=== PATIENT | male | born 1955 | race Hispanic/Latino ===

== ENCOUNTER 2024-06-16 20:36 | Inpatient (IN) | payer MEDICARE ==
[~2024-06-16] VITALS: Ht 172.7 cm; Wt 85.8 kg
--- NOTE | 2024-06-16 20:45 | ERN ---
ED Note History of Present Illness Stated Complaint: GENERALIZED BODY WEAKNESS, LOW PLATELETS Chief Complaint: Abnormal Labs Time Seen by MD: 20:38 Dictation: [facility]. Patient recently was being treated for osteo. A few months ago. He had left lateral digit amputations. These metatarsal and did and phalanges. Patient denies any fevers chills any difficulty. Did review previous platelets. The around 200. But they said they have been downtrending here recently it was last days now the around 30. He denies any bleeding either or dark stools or vomiting blood Allergies: Coded Allergies: No Known Drug Allergies (Unverified Allergy, Unknown, 05/05/24) Home Meds No Active Prescriptions or Reported Meds Past Medical History Past Medical History: CHF, Diabetes-Type II, High Cholesterol, Hypertension Surgical History: Other Surgical History Other: BILATERAL TOES AMPUTATED Review of System Dictation Constitutional: Negative for fever,chills, and weight loss Eyes: Negative for injury, pain,redness, and discharge ENT: Negative for injury,pain or swelling Cardiovascular: Negative for chest pain, palpitations, and edema Respiratory: Negative for shortness of breath, cough, and wheezing, Abdomen/GI: Negative for abdominal pain, nausea, vomiting, diarrhea, and constipation Back: Negative for injury and pain : Negative for injury, bleeding and discharge MS/Extremity: Negative for injury and deformity Skin: Negative for rash, and discoloration Neuro: Negative for headache, weakness, numbness, tingling, and seizure Psych: Negative for suicide ideation, homicidal ideation, and hallucinations Initial Vital Sign VS Vital Signs Date Time Temp Pulse Resp B/P (MAP) Pulse Ox O2 Delivery O2 Flow Rate FiO2 06/16/24 20:37 97.0 98 16 102/51 100 Room Air 0 06/16/24 21:00 21 Physical Exam Dictation General: awake, alert, NAD Head/Face: Normocephalic, atraumatic Eyes: PERRL, EOMI, vision at baseline ENT: oral cavity clear, TMs clear, no signs of infection Neck: Trachea midline, supple, no nuchal rigidity Cardiovascular: RRR, normal S1/S2, No MRGs, no JVD Respiratory: CTAB, no respiratory distress, No rales or wheezes Abdomen: Soft, non-tender, non-distended, normal bowel sounds, no guarding or rebound. Skin: Warm, dry, normal turgor, no rash MS/Extremity: Patient does have some bandages. The left lower lateral foot.. But there was no purulence that is there was no oozing. Patient denies any other issues. He was speaking full complete sentences he denies any symptoms anywhere Neuro: COAx4, GCS 15, strength 5/5, CN 2-12 intact, normal cerebellar exam, normal gait, Psych: Normal behavior, mood, and affect normal Results (Laboratory/Radiology) Laboratory/Radiology Laboratory Tests Test 06/16/24 20:31 06/16/24 22:12 White Blood Count 10.4 K/uL (4.8-10.8) Red Blood Count 3.20 MIL/uL (4.50-6.20) L Hemoglobin 9.7 g/dL (14.0-18.0) L Hematocrit 30.2 % (42-54) L Mean Corpuscular Volume 94.4 fL (79-99) Mean Corpuscular Hemoglobin 30.3 pg (27.0-33.0) Mean Corpuscular Hemoglobin Concent 32.1 g/dL (32.0-36.0) Red Cell Distribution Width 14.9 % (11.0-15.5) Platelet Count 32 K/uL (130-400) L Mean Platelet Volume 12.9 fL (7.5-10.5) H Immature Granulocyte % (Auto) 2.0 % (0-1) H Neutrophils (%) (Auto) 84.2 % (40.0-77.0) H Lymphocytes (%) (Auto) 9.1 % (21.0-51.0) L Monocytes (%) (Auto) 4.2 % (3.0-13.0) Eosinophils (%) (Auto) 0.1 % (0.0-8.0) Basophils (%) (Auto) 0.4 % (0.0-5.0) Neutrophils # (Auto) 8.7 K/uL (1.8-7.7) H Lymphocytes # (Auto) 0.9 K/uL (1.0-4.8) L Monocytes # (Auto) 0.4 K/uL (0.1-1.0) Eosinophils # (Auto) 0.01 K/uL (0.00-0.70) Basophils # (Auto) 0.04 K/uL (0.00-0.20) Absolute Immature Granulocyte (auto 0.21 K/uL (0-1) Nucleated Red Blood Cells 0.0 % (0.0-0.19) White Cell Morphology Comment See comments Platelet Morphology Comment MARKED DECREASE Red Blood Cell Morphology See comments Erythrocyte Sedimentation Rate 41 MM/HR (0-20) H Sodium Level 137 mmol/L (136-145) Potassium Level 6.0 mmol/L (3.5-5.1) *H Chloride Level 101 mmol/L (101-111) Carbon Dioxide Level 8 mmol/L (21-32) *L Blood Urea Nitrogen 113 mg/dL (7-18) *H Creatinine 9.9 mg/dL (0.5-1.3) *H Glomerular Filtration Rate Calc 5 mL/min (>90) Random Glucose 101 mg/dL (70-105) Total Calcium 8.6 mg/dL (8.5-10.1) Troponin I High Sensitivity 139 ng/L (4-75) *H C-Reactive Protein, Quantitative 16.10 mg/L (0.5-3.0) H B-Type Natriuretic Peptide 662 pg/mL (0-100) H Group A Streptococcus Rapid negative (NEGATIVE) ED Course ED Course Orders Procedure Category Date Status Time Cbc With Differential LAB 06/16/24 Complete 20:41 Chest 1vw RAD 06/16/24 Resulted 20:41 12 Lead Ekg Tracing- EKG 06/16/24 Logged Technical 20:41 Troponin I High LAB 06/16/24 Complete Sensitivity 20:41 Basic Metabolic Panel LAB 06/16/24 Complete 20:41 Erythrocyte LAB 06/16/24 Complete Sedimentation Rate 20:41 Crp Quantitative LAB 06/16/24 Complete 20:41 Blood Cult JAROCHO 06/16/24 In Process 21:16 0.9%Nacl 1000ml (Ns PHA 06/16/24 Complete 1000ml) 21:30 Zosyn 3.375gm+Ns 50ml PHA 06/16/24 In Process (Zosyn 3.375gm+Ns 21:30 Vancomycin 1.5 Gm/250 PHA 06/16/24 Complete Ml Bag (Vancomycin 21:30 Enoxaparin Sodium 100 PHA 06/16/24 Complete Mg/1 Ml (Lovenox) 21:30 Calcium Gluc 1gm PHA 06/16/24 Complete (Calcium Gluc 1gm 21:30 Albuterol 0.083% PHA 06/16/24 Complete 2.5mg/3ml (Proventil 21:30 Sodium Polystyr Sulf PHA 06/16/24 In Process 15gm (Kayexalate 15 21:30 B-Type Natriuretic LAB 06/16/24 Complete Peptide 21:28 Albuterol 0.083% PHA 06/16/24 Complete 2.5mg/3ml (Proventil 21:34 Norepinephrin 4mg/Ns PHA 06/16/24 In Process 250ml (Levophed 4mg 22:00 Vancomycin 1g/250ml PHA 06/16/24 In Process Kit (Vancomycin 1g/2 22:00 Covid19 (Sars Antigen LAB 06/16/24 In Process Rapid) 22:17 Influenza Type A & B, LAB 06/16/24 In Process Rapid 22:17 Rapid (Group A Strep) LAB 06/16/24 In Process 22:17 Current Medications Medications (Trade) Dose Ordered Sig/Roderick Route PRN Reason Start Time Stop Time Status Last Admin Dose Admin Albuterol Sulfate (Proventil 0.083% 2.5mg/3ml) 2.5 mg STK-MED ONCE IH 06/16/24 21:34 06/16/24 21:34 DC Albuterol Sulfate (Proventil 0.083% 2.5mg/3ml) 10 mg ONCE ONCE IH 06/16/24 21:30 06/16/24 21:35 DC 06/16/24 21:53 Calcium Gluconate 1 gm/Sodium Chloride 110 ml @ 110 mls/hr ONCE ONCE IV 06/16/24 21:30 06/16/24 22:29 DC 06/16/24 22:03 Enoxaparin Sodium (Lovenox) 80 mg ONCE ONCE SQ 06/16/24 21:30 06/16/24 21:46 DC Norepinephrine 250 ml @ 0 mls/hr PROTOCOL IV 06/16/24 22:00 07/16/24 21:59 06/16/24 22:03 Piperacillin Sod/ Tazobactam Sod (Zosyn 3.375gm+NS 50ml) 3.375 gm Q12H IV 06/16/24 21:30 07/07/24 21:29 06/16/24 21:42 Sodium Polystyrene Sulfonate (kayEXALate 15 GM/60 ML) 15 gm Q2H PO 06/16/24 21:30 06/16/24 23:31 06/16/24 22:21 Sodium Chloride 1,000 ml @ 0 mls/hr ONCE ONCE IV 06/16/24 21:30 06/16/24 21:31 DC 06/16/24 21:22 Vancomycin HCl 250 ml @ 125 mls/hr ONCE ONCE IV 06/16/24 22:00 06/16/24 23:59 06/16/24 22:21 Vancomycin HCl (Vancomycin 1.5 Gm/250 ml Bag) 1 gm ONCE ONCE IV 06/16/24 21:30 06/16/24 21:34 DC Vital Signs Date Time Temp Pulse Resp B/P (MAP) Pulse Ox O2 Delivery O2 Flow Rate FiO2 06/16/24 22:25 118 20 123/45 96 Room Air* 0 06/16/24 22:20 118 20 138/49 96 Room Air* 0 06/16/24 22:15 111 16 125/50 96 Room Air* 0 06/16/24 22:10 96 14 92/34 96 Room Air* 0 06/16/24 22:05 96 15 94/37 96 Room Air* 0 06/16/24 22:03 103/33 06/16/24 22:00 96 15 103/32 96 Room Air* 0 06/16/24 21:55 95 14 86/32 96 Room Air* 0 06/16/24 21:54 97 15 06/16/24 21:45 95 16 96/35 96 Room Air* 0 06/16/24 21:35 92 19 97/35 96 Room Air* 0 06/16/24 21:30 97 19 96/41 96 Room Air* 0 06/16/24 21:15 95 18 79/22 95 Room Air* 0 06/16/24 21:05 96.6 96 16 102/36 98 Room Air* 0 06/16/24 21:00 96 15 96/30 98 Room Air* 0 06/16/24 20:37 97.0 98 16 102/51 100 Room Air 0 Medical Decision Making MDM Patient has no acute distress nontoxic appearing he is speak in full complete sentences I am not aware of if he was able to receive the full dose treatment for the osteomyelitis. But given these low platelets. I do believe he would benefit from observation. And a trial of different antibiotics. I gave him for his osteomyelitis in his chronic wound. Given the platelets there are month ago. Around 200 and and now there 30 I told the patient I do anticipate admission Nurse told me about the low pressure. Nine hundred fifteen 9:20 p.m.. She said he may have had a heart failure than the in the past. I did see bedside x-ray read. There was no pleural effusions. No large pleural effusions. No pretibial edema I said we will do 1 L if this is not work within these next short time. Then we will start Levophed. They said that he had been getting the cefepime. Over the last days. I did consider doing broad-spectrum antibiotics. But again this this could worsen the the platelet level. Given the acidosis. And demand ischemia troponinemia. Decision was made to do broad-spectrum antibiotics. Also additionally to given his severe NETO. Given these not been eating and drinking it was last four days. I had started some fluids and pressors. Also told placement secretary to Colin. Two page nephrology. Patient likely is a candidate for dialysis. It was around 10:00 p.m. MDM: Differential diagnosis: Rationale: Tests considered and ordered secondary to shared decision making include: labs, ECG and radiology Previous outside records reviewed: Old ER visits. Risk of complication and/or morbidity or mortality of patient management: None Medications-Per medication reconciliation Need for hospitalization: Patient does meet criteria for hospitalization. Need for emergency major/minor surgery: No There are no social concerns with this patient. Prescription drug management Prescriptions will include symptomatic care Patient's prior external medical records from other ER visits were reviewed by me as indicated. Prior testing and results from previous visits were reviewed. Prior tests were taken into account with medical decision making and resource utilization, independent historian/historians were used to obtain complete medical history. I independently interpreted the test that were performed, results were reviewed by me and considered findings on radiology if ordered. Medical management and examination interpretation discussions were had by me with other qualified healthcare professionals as indicated for the patient's care. Total critical care time was 33 minutes. Excluding time for procedures. Management of critically ill patient with concern for acute decompensation. Management included interpretation of laboratory values and imaging, hemodynamics, time for consultation with consultants and admitting physician. DX & DISP Disposition: Inpatient Departure Impression: Primary Impression: Wound of left foot Condition: Stable Scripts No Active Prescriptions or Reported Meds Referrals: SELF,REFERRAL (PCP) MARY CARR MD Jun 16, 2024 20:45
[2024-06-16 21:01] LABS: BASOPHILS # (AUTO) 0.04 K/uL (0.00-0.20); BASOPHILS % (AUTO) 0.4 % (0.0-5.0); EOSINOPHILS # (AUTO) 0.01 K/uL (0.00-0.70); EOSINOPHILS % (AUTO) 0.1 % (0.0-8.0); HEMATOCRIT 30.2 % (42-54); IMMATURE GRANULOCYTE ABSOLUTE 0.21 K/uL (0-1); LYMPHOCYTES # (AUTO) 0.9 K/uL (1.0-4.8); LYMPHOCYTES % (AUTO) 9.1 % (21.0-51.0); MEAN CORPUSCULAR HEMOGLOBIN 30.3 pg (27.0-33.0); MEAN CORPUSCULAR HGB CONC 32.1 g/dL (32.0-36.0); MEAN CORPUSCULAR VOLUME 94.4 fL (79-99); MONOCYTES # (AUTO) 0.4 K/uL (0.1-1.0); MONOCYTES % (AUTO) 4.2 % (3.0-13.0); NEUTROPHILS # (AUTO) 8.7 K/uL (1.8-7.7); NEUTROPHILS % (AUTO) 84.2 % (40.0-77.0); PLATELET COUNT (AUTO) 32 K/uL (130-400); RED CELL DISTRIBUTION WIDTH 14.9 % (11.0-15.5); WHITE BLOOD COUNT (AUTO) 10.4 K/uL (4.8-10.8)
--- NOTE | 2024-06-16 21:10 | NUR ---
Patient has a PICC line present on arrival to [facility], 1st set of blood cultures collected from PICC line at this time./DEBBIE
[2024-06-16 21:18] LABS: PLATELET MORPHOLOGY COMMENT MARKED DECREASE
[2024-06-16] MEDS: 0.9%NACL 1000ML 1,000 ML IV ONE (21:22)
[2024-06-16 21:26] LABS: CREATININE 9.9 mg/dL (0.5-1.3)
[2024-06-16] MEDS: ZOSYN 3.375GM +NS 50ML IV SCH (21:42)
[2024-06-16] MEDS: ALBUTEROL 0.083% 2.5 MG/3 ML INH IH ONE ×2 (21:53→22:52)
[2024-06-16 21:54] VITALS: PULSE 97; RESP 15
--- NOTE | 2024-06-16 22:00 | HMCIMG ---
PORTABLE CHEST RADIOGRAPH INDICATION: cp COMPARISON: 05/06/2024 FINDINGS: icing coater leads overlie the field of view. Tip of right PICC within the SVC. Heart size is normal. Mild calcific plaque is present along the aortic arch rosales. The pulmonary vascularity and mauricio appear normal. No abnormal pulmonary parenchymal opacity or consolidation identified. No significant pleural effusion noted. No pneumothorax detected. IMPRESSION: No radiographic evidence for any acute cardiopulmonary process.
[2024-06-16] MEDS: NOREPINEPHRIN 4MG/NS 250ML 250 ML IV SCH (22:03)
[2024-06-16] MEDS: CALCIUM GLUC 1GM 1 GM in 0.9%NACL 100ML 100 ML IV ONE (22:03)
[2024-06-16 22:19] LABS: ERYTHROCYTE SEDIMENTATION RATE 41 MM/HR (0-20)
[2024-06-16] MEDS: VANCOMYCIN 1G/250ML KIT 250 ML IV ONE (22:21)
[2024-06-16] MEDS: kayEXALate 15GM/60ML PO SCH (22:21)
[2024-06-16] MEDS: VANCOMYCIN HCL 1.5 GM/250 ML BAG IV ONE (22:30)
[2024-06-16 22:49] LABS: RAPID GROUP A STREP negative (NEGATIVE)
[2024-06-16 22:59] LABS: COVID19 (SARS ANTIGEN RAPID) PRESUMPTIVE NEGATIVE (NEGATIVE)
[2024-06-16 23:00] LABS: INFLUENZA TYPE A Negative For Type A (NEGATIVE); INFLUENZA TYPE B Negative For Type B (NEGATIVE)
[2024-06-16] MEDS: SODIUM ZIRCONIUM CYCLOSILICATE 5 GM POWD.PACK PO ONE (23:13)
[2024-06-16] MEDS: 0.9%NACL 1000ML 1,000 ML IV SCH (23:13)
[2024-06-16] MEDS: ENOXAPARIN SODIUM 100 MG/1 ML SQ ONE (23:15)
--- NOTE | 2024-06-16 23:47 | HP ---
[facility] HISTORY AND PHYSICAL Date of Service: Jun 16, 2024 Time of Service: 23:47 HISTORY OF PRESENT ILLNESS: This is a 69-year-old male ,a poor historian coming from [facility] with past medical history of osteomyelitis S/P left 4 &5 th toe and r ight 3rd toe amputation, anemia, chronic pain,diabetes and hypertension who was brought by EMS to the ED for complaints of low platelet and patient is not eating since Saturday.Sister Kaylah Jaramillo was at bedside during my evaluation and was saying patient was positive with Covid 3 weeks ago and was doing okay is already negative with Covid she said however this Saturday he started not eating and today when she visited him he is not talking much and appears weak so she decided to send him here she said.Patient BP has dropped to 79/22/ and was started on Levophed drip. Seen and examined patient in the ER arousable and coherent .Patient denies fever,chills,nausea,vomiting,chest pain,palpitation,shortness of breath.Patient last platelet here in this facility on 05/07/2024 was 209 and now it went down to 32.No reported bleeding problem.Patient denies bleeding problem.As per sister patient had a right great toe amputation 10 years ago. Latest vital signs temperature 96.3�, heart rate 114, blood pressure 132/51 saturation 98% on room air. Labs: WBC 10, hemoglobin 9.7, hematocrit 30 platelet count 32. Potassium six, CO2 eight, BUN 113, creatinine 9.9, GFR five, troponin 139. PH 6.7, CO2 25, PO2 56, bicarb 3.4 O2 saturation 80 base excess -30 lactic acid seven. Inf luenza type a and B negative, SARs COVID negative rapid strep negative. Chest x-ray result revealed no radiographic evidence for any acute cardiopulmonary process. CT abdomen and pelvis renal ultrasound are still pending at this time. While in the ER patient received 1 L NS bolus, Zosyn IV, vancomycin 1 g IV, albuterol 10 mg inhalation, Kayexalate 15 g p.o., patient continued on Levophed drip.Will admit patient to ICU for further medical management . REVIEW OF SYSTEMS CONSTITUTIONAL: Denies fevers, chills, or night sweats. No unintentional weight loss reported. NEUROLOGICAL: Complain of generalized body weakness Denies headache, amaurosis fugax,, sensory deficit, vertigo/spinning sensation, gait abnormalities, or tremors. ENT: No hearing loss, otalgia, otorrhea, rhinitis, rhinorrhea, hoarseness, or sore throat. CARDIOVASCULAR: Denies any exertional angina, dyspnea on exertion, orthopnea, paroxysmal nocturnal dyspnea, palpitations, life-threatening arrhythmias, claudication. PULMONARY: Denies any shortness of breath, cough, phlegm/sputum, hemoptysis, pleuritic chest pain. SLEEP: Denies morning headaches, daytime somnolence or napping. Denies difficulty falling asleep, staying asleep, waking from sleep. Denies knowledge of snoring. GASTROINTESTINAL: Complain of loss of appetite Denies any type of dysphagia to either liquids or solids. Denies nausea, vomiting, pyrosis, early satiety, abdominal pain, diarrhea, constipation, or changes in stool consistency or caliber. Denies coffee-ground emesis, hematemesis, hematochezia, or melanotic stools. GENITOURINARY: Denies frequency, urgency, nocturia, hematuria or incontinence (Storage/Irritative symptoms.) Low urinary stream, straining to void, urinary intermittency or hesitancy, splitting of the voiding stream, terminal dribbling. ENDOCRINOLOGIC: Denies polyuria, polydipsia, polyphagia or heat/cold intolerances. HEMATOLOGIC: Denies thrombophilia/previous clots, or coagulopathy/bleeding disorders. ONCOLOGIC: Denies personal history of malignancy. DERMATOLOGIC: Denies rashes or pruritus. PSYCHIATRIC: Denies any suicidal or homicidal ideation. Denies hallucinations. PAST MEDICAL HISTORY: [osteomyelitis S/P left 4 &5 th toe and right 3rd toe amputation, anemia, chronic pain,diabetes and hypertension ] PAST SURGICAL HISTORY: [ Left 4th and 5th toe amputation, right great and 3rd toe amputation ] PAST SOCIAL HISTORY: [ Patient coming from [facility]. Patient denies smoking alcohol and recreational drug use ] FAMILY HISTORY: [ Noncontributory ] Coded Allergies: No Known Drug Allergies (Unverified Allergy, Unknown, 05/05/24) PHYSICAL EXAM GENERAL APPEARANCE: The patient is awake, alert, and oriented, in no acute cardiopulmonary distress. NEUROLOGICAL: Cranial nerves II-XII grossly intact. Motor is 5/5 in bilateral upper and lower extremities proximal to distal. No sensory deficits. HEENT: Face is symmetric. Pupils are equal and reactive. Extraocular movements are intact. NECK: Supple. No JVD. No thyromegaly. No submental, submandibular, pre- /postauricular, occipital or supraclavicular lymphadenopathy. CHEST: Normal chest expansion. No Telemetry. LUNGS: Absence of any rales, rhonchi or any wheezing. CARDIOVASCULAR: Regular. S1 and S2 normal. No appreciable rubs, murmurs or gallops. ABDOMEN: Soft, nontender, and nondistended. There is no rebound, voluntary guarding, or rigidity. : Deferred. No Gallagher. EXTREMITIES: Non-edematous and not cyanotic. No clubbing. Good capillary refill. SKIN: No skin breakdown. Vital Sign (Last 24 Hours) 06/16/24 06/16/24 21:05 22:25 Temp 96.6 Pulse 118 Resp 20 B/P (MAP) 123/45 Pulse Ox 96 O2 Delivery Room Air* O2 Flow Rate 0 FiO2 21 LABS: Laboratory: Test 06/16/24 22:12 06/16/24 20:31 Range/Units Influenza Type A Antigen Negative For Type A NEGATIVE Influenza Type B Antigen Negative For Type B NEGATIVE SARS-CoV-2 Antigen (Rapid) PRESUMPTIVE NEGATIVE NEGATIVE Group A Streptococcus Rapid negative NEGATIVE White Blood Count 10.4 4.8-10.8 K/uL Red Blood Count 3.20 L 4.50-6.20 MIL/uL Hemoglobin 9.7 L 14.0-18.0 g/dL Hematocrit 30.2 L 42-54 % Mean Corpuscular Volume 94.4 79-99 fL Mean Corpuscular Hemoglobin 30.3 27.0-33.0 pg Mean Corpuscular Hemoglobin Concent 32.1 32.0-36.0 g/dL Red Cell Distribution Width 14.9 11.0-15.5 % Platelet Count 32 L 130-400 K/uL Mean Platelet Volume 12.9 H 7.5-10.5 fL Immature Granulocyte % (Auto) 2.0 H 0-1 % Neutrophils (%) (Auto) 84.2 H 40.0-77.0 % Lymphocytes (%) (Auto) 9.1 L 21.0-51.0 % Monocytes (%) (Auto) 4.2 3.0-13.0 % Eosinophils (%) (Auto) 0.1 0.0-8.0 % Basophils (%) (Auto) 0.4 0.0-5.0 % Neutrophils # (Auto) 8.7 H 1.8-7.7 K/uL Lymphocytes # (Auto) 0.9 L 1.0-4.8 K/uL Monocytes # (Auto) 0.4 0.1-1.0 K/uL Eosinophils # (Auto) 0.01 0.00-0.70 K/uL Basophils # (Auto) 0.04 0.00-0.20 K/uL Absolute Immature Granulocyte (auto 0.21 0-1 K/uL Nucleated Red Blood Cells 0.0 0.0-0.19 % White Cell Morphology Comment See comments Platelet Morphology Comment MARKED DECREASE Red Blood Cell Morphology See comments Erythrocyte Sedimentation Rate 41 H 0-20 MM/HR Sodium Level 137 136-145 mmol/L Potassium Level 6.0 *H 3.5-5.1 mmol/L Chloride Level 101 101-111 mmol/L Carbon Dioxide Level 8 *L 21-32 mmol/L Blood Urea Nitrogen 113 *H 7-18 mg/dL Creatinine 9.9 *H 0.5-1.3 mg/dL Glomerular Filtration Rate Calc 5 >90 mL/min Random Glucose 101 70-105 mg/dL Total Calcium 8.6 8.5-10.1 mg/dL Troponin I High Sensitivity 139 *H 4-75 ng/L C-Reactive Protein, Quantitative 16.10 H 0.5-3.0 mg/L B-Type Natriuretic Peptide 662 H 0-100 pg/mL Current Medications Medications (Trade) Dose Ordered Sig/Roderick Route PRN Reason Start Time Stop Time Status Last Admin Dose Admin Norepinephrine 250 ml @ 0 mls/hr PROTOCOL IV 06/16/24 22:00 07/16/24 21:59 06/16/24 22:03 18.36 MLS/HR Piperacillin Sod/ Tazobactam Sod (Zosyn 3.375gm+NS 50ml) 3.375 gm Q12H IV 06/16/24 21:30 07/07/24 21:29 06/16/24 21:42 3.375 GM Sodium Polystyrene Sulfonate (kayEXALate 15 GM/60 ML) 15 gm Q2H PO 06/16/24 21:30 06/16/24 23:31 DC 06/16/24 22:21 15 GM Sodium Chloride 1,000 ml @ 150 mls/hr Q6H40M IV 06/16/24 23:00 07/16/24 22:59 06/16/24 23:13 150 MLS/HR Thiamine HCl (Vitamin B-1) 100 mg DAILY IVP 06/17/24 09:00 07/17/24 08:59 DIAGNOSTICS / RADIOLOGY: [ ] ASSESSMENT: Severe metabolic acidosis POA Septic shock requiring vasopressor POA Acute renal failure POA Hyperkalemia POA Chronic anemia POA Acute thrombocytopenia POA Failure to thrive POA Osteomyelitis with recent amputation to both feet POA Elevated troponin POA Elevated BNP POA Diabetes POA PLAN: We will admit patient in ICU We will keep patient nothing by mouth We will continue Levophed drip you may be above 65 We will continue Zosyn and vancomycin for broad-spectrum coverage We will start on insulin sliding scale AC & HS with hypoglycemia protocol We will add prn medication for fever,pain,cough , nausea and vomiting We will check fecal occult blood x1 We will request case management service We will request dietary consultation to assess for malnutrition We will seek Nephrology consultation We will seek critical care consultation We will seek Cardiology consultation We will reconcile home meds once medlist available We will request labs in am We will obtain 2D echo We will trend troponin q.6 x3 Further orders to follow depending on above results Case discussed with attending physician and came up with above treatment and plan of care. ADVANCED CARE PLANNING 1. Which of the following were discussed? Hospice Care - No Therapeutic options - Yes Advance Directives - No Other discussions - 2. Discussed with who? Patient 3. Voluntary nature of this service was explained to the patient? Yes 4. Amount of time spent - ___28____ 5. Reviewed by Physician? (if this service was performed by NPP) Yes Patient seen and examined by me. Agree with note by SAGGER SOAK SEE ADDITIONAL ORDERS PER CHART DISCUSSED WITH NURSING STAFF LILIAM LACY [employer]HICLE INSPECTOR Jun 16, 2024 23:47
[2024-06-17] VITALS (88 sets, daily range): BP systolic 66–138; BP diastolic 24–105; PULSE 97–134; RESP 10–46; TEMP 96.5–99.1; O2SAT 97–100
[2024-06-17 00:04] LABS: APPEARANCE,URINE CLEAR (CLEAR); BILIRUBIN,URINE NEGATIVE (NEGATIVE); COLOR,URINE LIGHT-YELLOW (YELLOW); GLUCOSE, URINE (UA) NEGATIVE (NEGATIVE); KETONES,URINE 10 mg/dL (NEGATIVE); LEUKOCYTE ESTERASE ,URINE NEGATIVE Leu/uL (NEGATIVE); NITRATE,URINE NEGATIVE (NEGATIVE); OCCULT BLOOD,URINE SMALL (NEGATIVE); PH,URINE 5.5 (5.0-8.0); PROTEIN,URINE 200 mg/dL (NEGATIVE); UROBILINOGEN,URINE 0.2 mg/dL (0.2-1.0)
[2024-06-17 00:08] LABS: ADD UA MICROSCOPIC YES
[2024-06-17 00:09] LABS: BACTERIA,URINE RARE /HPF (None Seen); RBC,URINE 0-1 /HPF (0-1); SQUAMOUS EPITHELIAL CELL,UR RARE /HPF (0-2)
[2024-06-17] MEDS ORDERED: VANCOMYCIN HCL 1.5 GM/250 ML BAG IV ONE (01:00)
[2024-06-17] MEDS ORDERED: GLUCAGON 1MG KIT 1 MG ML IM PRN ×2 (01:00)
[2024-06-17] MEDS ORDERED: 0.9%NACL 50ML IV SCH (01:00)
[2024-06-17] MEDS ORDERED: DEXTROSE 50%-WATER 50 ML DISP.SYRIN IV PRN (01:00)
--- NOTE | 2024-06-17 01:15 | NUR ---
CRITICAL CARE CONSULT COMPLETED AT THIS TIME, ORDERS GIVEN AND READ BACK./DEBBIE
--- NOTE | 2024-06-17 01:19 | CONS ---
[facility] CONSULTATION NOTE Date Patient Seen: Jun 17, 2024 Time of Visit: 0145 Supervising Physician: [Dr. Maverick Arizmendi] Reason for Consultation: [ICU Consult ] Primary Care Physician: [None-recently relocated from [place]] Outpatient Specialists: [ ] Inpatient Consults: [facility] team, nephro: Dr. Dowd, cardio: Dr. Bae] PROBLEM LIST: Septic shock, requiring pressor-POA Acute encephalopathy; likely multifactorial infectious, uremic and toxic metabolic-POA Severe metabolic acidosis-POA Acute renal failure, severe-POA Uremia-POA Severe hyperkalemia-POA Thrombocytopenia-POA Lactic acidosis-POA Severe lactic acidosis-POA NSTEMI, rule-out demand ischemia vs true cardiac etiology-POA PLAN: -Continue critical care management -Activate hyperkalemia cocktail -Start on IV Vanco, Flagyl and Cefepime, pending blood CX results -Obtain CT AP -Obtain MRI of BLE/feet to r/o osteomyelitis -Obtain 2decho -Pending kidney US, obtain urine electrolytes -Obtain ABG and trend. administer sodium bicarb -Nephro Dr. Dowd made aware of patient's condition and labs per ED RN's notification- nephro on-board -Discussion with the sister regarding hemodialysis possibility rendered and she mentioned about their mother's dialysis history, agreeable if the patient had to. She hates to see her brother because they have not been reconnected until recently -Monitor trops and EKG, unable to consider Heparin at this point due to severe thrombocytopenia, 32 on entry -ACS risk stratification with TSH, lipid panel and HgA1c -Titrate pressor to keep MAP >65 -IV fluid resuscitation HPI: [Patient is encephalopathic and unable to engage with the HPI. Per ED notes: 'Patient was sent in from the alf the rehab. Patient recently was being treated for osteo. A few months ago. He had left lateral digit amputations. These metatarsal and did and phalanges. Patient denies any fevers chills any difficulty. Did review previous platelets. The around 200. But they said they have been downtrending here recently it was last days now the around 30. He denies any bleeding either or dark stools or vomiting blood." I spoke to her sister at bedside and claims that the patient recently relocated here from [place] suffering from diabetes and osteomyelitis that he had to be treated with antibiotics at the alf. She claims that since she noticed that something was off about the patient. She has been telling the alf staff about her observation that patient appears ot be confused but she was not getting heard. Today, the patient was getting more lethargic and disoriented. He has not been eating or drinking due to lack of appetite. Significant findings at the ED were very concerning for severe kidney failure and acidosis. Nephrology, Dr. Dowd was consulted by primary team for further management. Bis team was consulted for critical care management. On my examination, patient is lethargic, just finished CT abdomen pelvis with dressing on bilateral foot wound secondary to toe amputation CDI. We will continue to follow along patient's response to treatment. Education rendered to the sister for possibility of dialysis if kidney function does not improve specially in the setting of severe hyperkalemia. Apparently, patient's mother from cardiac arrest while in the dialysis 20 years ago. On behalf of [facility] team, thank you for the opportunity to participate on Mr. Ortez's care. PAST MEDICAL HX: see above PAST SURGICAL HX: noncontributory SOCIAL HISTORY: No tobacco, ETOH, or illicit drug use Coded Allergies: No Known Drug Allergies (Unverified Allergy, Unknown, 05/05/24) REVIEW OF SYSTEMS: Unable to perform 12 point ROS due to patient's encephalopathy. PHYSICAL EXAM: GENERAL: Lethargic, weak HEENT: Normocephalic, atraumatic, dry mucosa NECK: Supple, no JVD, trachea midline LUNGS: Clear breath sounds bilaterally. No wheezes HEART: Regular rate and rhythm. Normal S1 and S2, positive murmurs , tachycardic ABD: Abdomen soft, nontender. Bowel sounds present EXT: No clubbing, cyanosis, or edema, bilateral feet wound with toe amputations with dressing CDI NEURO: Deferred Vital Signs (last 8hr) Date Time Temp Pulse Resp B/P (MAP) Pulse Ox O2 Delivery O2 Flow Rate FiO2 06/17/24 00:30 117 19 118/46 97 Room Air* 0 21 06/17/24 00:00 115 16 118/45 97 Room Air* 0 21 06/16/24 23:30 121 19 131/53 98 Room Air* 0 21 06/16/24 23:00 122 20 117/48 96 Room Air* 0 06/16/24 22:30 120 17 129/51 97 Room Air* 0 06/16/24 22:25 118 20 123/45 96 Room Air* 0 06/16/24 22:20 118 20 138/49 96 Room Air* 0 06/16/24 22:15 111 16 125/50 96 Room Air* 0 06/16/24 22:10 96 14 92/34 96 Room Air* 0 06/16/24 22:05 96 15 94/37 96 Room Air* 0 06/16/24 22:03 103/33 06/16/24 22:00 96 15 103/32 96 Room Air* 0 06/16/24 21:55 95 14 86/32 96 Room Air* 0 06/16/24 21:54 97 15 06/16/24 21:45 95 16 96/35 96 Room Air* 0 06/16/24 21:35 92 19 97/35 96 Room Air* 0 06/16/24 21:30 97 19 96/41 96 Room Air* 0 06/16/24 21:15 95 18 79/22 95 Room Air* 0 06/16/24 21:05 96.6 96 16 102/36 98 Room Air* 0 06/16/24 21:00 96 15 96/30 98 Room Air* 0 06/16/24 20:37 97.0 98 16 102/51 100 Room Air 0 LABS: Hematology Labs: Test 06/16/24 20:31 Range/Units White Blood Count 10.4 4.8-10.8 K/uL Red Blood Count 3.20 L 4.50-6.20 MIL/uL Hemoglobin 9.7 L 14.0-18.0 g/dL Hematocrit 30.2 L 42-54 % Mean Corpuscular Volume 94.4 79-99 fL Mean Corpuscular Hemoglobin 30.3 27.0-33.0 pg Mean Corpuscular Hemoglobin Concent 32.1 32.0-36.0 g/dL Red Cell Distribution Width 14.9 11.0-15.5 % Platelet Count 32 L 130-400 K/uL Mean Platelet Volume 12.9 H 7.5-10.5 fL Immature Granulocyte % (Auto) 2.0 H 0-1 % Neutrophils (%) (Auto) 84.2 H 40.0-77.0 % Lymphocytes (%) (Auto) 9.1 L 21.0-51.0 % Monocytes (%) (Auto) 4.2 3.0-13.0 % Eosinophils (%) (Auto) 0.1 0.0-8.0 % Basophils (%) (Auto) 0.4 0.0-5.0 % Neutrophils # (Auto) 8.7 H 1.8-7.7 K/uL Lymphocytes # (Auto) 0.9 L 1.0-4.8 K/uL Monocytes # (Auto) 0.4 0.1-1.0 K/uL Eosinophils # (Auto) 0.01 0.00-0.70 K/uL Basophils # (Auto) 0.04 0.00-0.20 K/uL Absolute Immature Granulocyte (auto 0.21 0-1 K/uL Nucleated Red Blood Cells 0.0 0.0-0.19 % White Cell Morphology Comment See comments Platelet Morphology Comment MARKED DECREASE Red Blood Cell Morphology See comments Erythrocyte Sedimentation Rate 41 H 0-20 MM/HR Chemistry Labs: Test 06/16/24 20:31 Range/Units Sodium Level 137 136-145 mmol/L Potassium Level 6.0 *H 3.5-5.1 mmol/L Chloride Level 101 101-111 mmol/L Carbon Dioxide Level 8 *L 21-32 mmol/L Blood Urea Nitrogen 113 *H 7-18 mg/dL Creatinine 9.9 *H 0.5-1.3 mg/dL Glomerular Filtration Rate Calc 5 >90 mL/min Random Glucose 101 70-105 mg/dL Total Calcium 8.6 8.5-10.1 mg/dL Troponin I High Sensitivity 139 *H 4-75 ng/L C-Reactive Protein, Quantitative 16.10 H 0.5-3.0 mg/L B-Type Natriuretic Peptide 662 H 0-100 pg/mL DIAGNOSTICS / RADIOLOGY RESULTS: [ ] PLAN NEURO: Minimize central acting medications as possible. Maintain fall precautions, adequate lighting during the day PULMONARY: Supplemental 02 as needed. Maintain aspiration precautions at all times CARDIOVASCULAR: Follow hemodynamics. Vital signs per facility protocol GI & NUTRITION: Continue with nutritional support. Continue stool softeners and laxatives as needed. KIDNEYS & ELECTROLYTES: Strict monitoring of intake, output and overall fluid balance. Avoid nephrotoxic medications to the extent possible. Medications to be dosed according to renal function. Monitor electrolytes and replace as needed ENDOCRINE: Maintain blood glucose between 100-180 at all times. Hypoglycemia protocol in place INFECTIOUS DISEASE: Trend temperature, WBC and procalcitonin level Follow cultures, deescalate antibiotics as soon as possible. Panculture if new onset fever ONCOLOGY/HEMATOLOGY/COAGULATION: Monitor for s/s of bleeding Monitor hemoglobin, coagulation studies as needed SKIN: Pressure ulcer prevention per facility protocol Specialty mattress ORTHO/REHAB: Continue PT/OT Prophylaxis: Continue GI and DVT prophylaxis Code Status: Full Resuscitation Disposition: TBD Other: Total patient care time: 35 minutes EUSEBIO POWELL AGPCSHANELLE Jun 17, 2024 01:19
[2024-06-17 01:30] LABS: ABG BASE EXCESS -30.9 mmol/L (-2.0-3.0); ABG HCO3 3.4 mmol/L (21.0-28.0); ABG OXYGEN SATURATION 80.9 % (94.0-98.0); ABG PCO2 25 mmHg (35-48); CARBON MONOXIDE 0.3 % (0.5-1.5); DEVICE COMMENT LAB DRAW; PO2, ARTERIAL BG 56.4 mmHg (83.0-108.0); VENT MODE, BG ROPM AIR (ROOM AIR)
[2024-06-17] MEDS ORDERED: VANCOMYCIN PROTOCOL PER PHARMACY IV SCH (01:30)
[2024-06-17 01:39] LABS: BASOPHILS # (AUTO) 0.08 K/uL (0.00-0.20); BASOPHILS % (AUTO) 0.6 % (0.0-5.0); EOSINOPHILS # (AUTO) 0.02 K/uL (0.00-0.70); EOSINOPHILS % (AUTO) 0.1 % (0.0-8.0); HEMATOCRIT 31.8 % (42-54); IMMATURE GRANULOCYTE ABSOLUTE 0.87 K/uL (0-1); LYMPHOCYTES # (AUTO) 1.5 K/uL (1.0-4.8); LYMPHOCYTES % (AUTO) 10.3 % (21.0-51.0); MEAN CORPUSCULAR HEMOGLOBIN 30.4 pg (27.0-33.0); MEAN CORPUSCULAR HGB CONC 30.2 g/dL (32.0-36.0); MEAN CORPUSCULAR VOLUME 100.6 fL (79-99); MONOCYTES # (AUTO) 0.5 K/uL (0.1-1.0); MONOCYTES % (AUTO) 3.7 % (3.0-13.0); NEUTROPHILS # (AUTO) 11.1 K/uL (1.8-7.7); NEUTROPHILS % (AUTO) 79.1 % (40.0-77.0); PLATELET COUNT (AUTO) 46 K/uL (130-400); RED BLOOD CELL COUNT(AUTO) 3.16 MIL/uL (4.50-6.20); RED CELL DISTRIBUTION WIDTH 15.1 % (11.0-15.5)
[2024-06-17 01:45] LABS: ABG PH 6.751 (7.350-7.450)
--- NOTE | 2024-06-17 01:52 | NUR ---
[facility] MADE AWARE OF CRITICAL LABS AND ABG AT THIS TIME. ORDERS GIVEN AND READ BACK./DEBBIE
--- NOTE | 2024-06-17 01:55 | NUR ---
[facility] ORDERED TO REPEAT ABD IN 1 HR POST SODIUM BICARB ADMINISTRATION./DEBBIE
[2024-06-17 01:56] LABS: INR 1.14 (0.85-1.15); PROTHROMBIN TIME 11.9 SEC (9.6-11.6)
[2024-06-17 01:58] LABS: PARTIAL THROMBOPLASTIN TIME 49.8 SEC (26.3-35.5)
[2024-06-17 02:05] LABS: ALBUMIN 2.9 g/dL (3.5-5.0); BILIRUBIN,DIRECT 0.1 mg/dL (0.0-0.3); BILIRUBIN,TOTAL 0.4 mg/dL (0.2-1.0); THYROID STIMULATING HORMONE 0.67 uIU/mL (0.36-3.74); TOTAL PROTEIN, SERUM 7.1 g/dL (6.0-8.3)
[2024-06-17 02:17] LABS: B-TYPE NATRIURETIC PEPTIDE 630 pg/mL (0-100)
[2024-06-17 02:24] LABS: HEMOGLOBIN A1C 7.3 % (4.0-6.0)
[2024-06-17 02:51] LABS: CHLORIDE,URINE RANDOM 67 mmol/L (110-250); POTASSIUM,URINE RANDOM 29 mmol/L (25-125); SODIUM,URINE RANDOM 49 mmol/l (40-220)
[2024-06-17] MEDS: FAMOTIDINE 20MG VIAL IV SCH (02:54)
[2024-06-17] MEDS: SODIUM BICARB 50MEQ 50ML VIAL IV ONE ×3 (02:54→10:19)
[2024-06-17] MEDS: ZOSYN 3.375GM +NS 50ML IVPB SCH (02:54)
[2024-06-17] MEDS: 0.9%NACL 1000ML 1,368 ML IV ONE (02:55)
[2024-06-17 03:06] LABS: ERYTHROCYTE SEDIMENTATION RATE 45 MM/HR (0-20)
[2024-06-17] MEDS: CALCIUM GLUC 1GM/10ML VIAL IV STA (04:21)
[2024-06-17] MEDS: DEXTROSE 50%-WATER 50 ML DISP.SYRIN IV STA (04:21)
[2024-06-17] MEDS: INSULIN humuLIN R 100 UNIT/ML 3ML IV STA (04:28)
[2024-06-17 04:30] LABS: ABG BASE EXCESS -31.6 mmol/L (-2.0-3.0); ABG HCO3 2.4 mmol/L (21.0-28.0); PO2, ARTERIAL BG 161.9 mmHg (83.0-108.0); VENT MODE, BG NC (ROOM AIR)
[2024-06-17] MEDS: ALBUTEROL 0.083% 2.5 MG/3 ML INH IH STA (04:31)
[2024-06-17 04:35] LABS: ABG PH 6.795 (7.350-7.450)
[2024-06-17 04:36] LABS: ABG PCO2 16 mmHg (35-48)
[2024-06-17] MEDS: metRONIDazole 500MG/100ML BAG IV SCH (04:58)
[2024-06-17] MEDS: ceFEPime HCL 1 GM VIAL IVPB SCH (04:58)
[2024-06-17] MEDS ORDERED: SODIUM BICARB 8.4% 50ML SYRING 0 MEQ in DEXTROSE 5%-WATER 1,000 ML IVP SCH (05:00)
[2024-06-17] MEDS: SODIUM BICARB 8.4% 50ML SYRING 150 MEQ in DEXTROSE 5%-WATER 1,000 ML IVP SCH (05:14)
--- NOTE | 2024-06-17 06:25 | EKG ---
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
[2024-06-17 07:03] LABS: ABG BASE EXCESS -29.3 mmol/L (-2.0-3.0); ABG HCO3 2.3 mmol/L (21.0-28.0); ABG OXYGEN SATURATION 97.8 % (94.0-98.0); ABG PCO2 < 15 mmHg (35-48); CARBON MONOXIDE 0.3 % (0.5-1.5); DEVICE COMMENT LR RA; HHb 2.2; PO2, ARTERIAL BG 138.9 mmHg (83.0-108.0)
[2024-06-17] MEDS: INSULIN humuLIN R 100 UNIT/ML 3ML SQ SCH (07:30)
--- NOTE | 2024-06-17 07:39 | EKG ---
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1955 Requested By: EUSEBIO POWELL Order Number: [id number] Reading MD: Jocelyn Bae Measurements Intervals [place] Rate: 116 P: 50 VT: 180 QRS: -43 QRSD: 105 T: 33 QT: 337 QTc: 469 Interpretive Statements Sinus tachycardia Incomplete RBBB and LAFB Low voltage, precordial leads Compared to ECG 06/16/2024 21:05:19 Incomplete right bundle-branch block now present Right bundle-branch block now present Sinus rhythm no longer present Atrial premature complex(es) no longer present T-wave abnormality no longer present Electronically Signed On 06-19-2024 09:32:55 CDT by Jocelyn Bae Please click the below link to view image of tracing.
[2024-06-17] MEDS ORDERED: PROT946L PO (08:08)
[2024-06-17] MEDS ORDERED: ONDA-104 PO (08:08)
[2024-06-17] MEDS ORDERED: CEFE1FRO IV (08:08)
[2024-06-17] MEDS ORDERED: AMLO-257 PO (08:08)
[2024-06-17] MEDS ORDERED: LINE600T14 PO (08:08)
[2024-06-17] MEDS ORDERED: ASCO500T10 PO (08:08)
[2024-06-17] MEDS ORDERED: HYDR-3420 PO (08:08)
[2024-06-17] MEDS ORDERED: ZINC220T4 PO (08:08)
[2024-06-17] MEDS ORDERED: ACET-3859 PO (08:08)
[2024-06-17] MEDS ORDERED: LOSA50TA64 PO (08:08)
[2024-06-17] MEDS ORDERED: NPH,100V SQ (08:08)
[2024-06-17] MEDS: THIAMINE HCL 100 MG/ML 2ML VIAL IVP SCH (09:03)
[2024-06-17 09:23] LABS: BASOPHILS # (AUTO) 0.08 K/uL (0.00-0.20); BASOPHILS % (AUTO) 0.6 % (0.0-5.0); IMMATURE GRANULOCYTE ABSOLUTE 0.82 K/uL (0-1); LYMPHOCYTES # (AUTO) 0.8 K/uL (1.0-4.8); LYMPHOCYTES % (AUTO) 5.3 % (21.0-51.0); MEAN CORPUSCULAR HEMOGLOBIN 30.5 pg (27.0-33.0); MEAN CORPUSCULAR HGB CONC 31.1 g/dL (32.0-36.0); MEAN CORPUSCULAR VOLUME 98.2 fL (79-99); MONOCYTES # (AUTO) 0.8 K/uL (0.1-1.0); MONOCYTES % (AUTO) 5.9 % (3.0-13.0); NEUTROPHILS # (AUTO) 11.7 K/uL (1.8-7.7); NEUTROPHILS % (AUTO) 82.4 % (40.0-77.0); PLATELET COUNT (AUTO) 28 K/uL (130-400); RED BLOOD CELL COUNT(AUTO) 2.75 MIL/uL (4.50-6.20); RED CELL DISTRIBUTION WIDTH 15.2 % (11.0-15.5); WHITE BLOOD COUNT (AUTO) 14.2 K/uL (4.8-10.8)
[2024-06-17 09:27] LABS: MAGNESIUM 1.8 mg/dL (1.80-2.40)
[2024-06-17 09:31] LABS: CREATININE 9.7 mg/dL (0.5-1.3)
--- NOTE | 2024-06-17 09:44 | NUR ---
Patient is expressing confused phrase, alert to name only an unable to make own decisions. As per patient sister, (Kaylah Ortez), patient will remain a full code.
--- NOTE | 2024-06-17 09:49 | PN ---
[facility] PROGRESS NOTE Date of Service: Jun 17, 2024 Time of Service: 09:46 SUBJECTIVE: Patient is seen and examined at bedside, case discussed with the RN, during my visit the patient resting comfortably in bed, following simple commands, he is on blood pressure support with Levophed, getting sodium bicarbonate IV. BP 108/57, heart rate of 116, saturating 99% on 2 L nasal cannula. Hemoglobin 8.4, hematocrit 27.0, WBC 14.2, platelet count of 28. Sodium 143, potassium 5.0, bicarb of five, BUN 107, creatinine 9.7. ABG with pH of 7.8, pCO2 less than 15, bicarb of 2.3. REVIEW OF SYSTEMS CONSTITUTIONAL: Denies fevers, chills, or night sweats. No unintentional weight loss reported. NEUROLOGICAL: Complain of generalized body weakness Denies headache, amaurosis fugax,, sensory deficit, vertigo/spinning sensation, gait abnormalities, or tremors. ENT: No hearing loss, otalgia, otorrhea, rhinitis, rhinorrhea, hoarseness, or so re throat. CARDIOVASCULAR: Denies any exertional angina, dyspnea on exertion, orthopnea, paroxysmal nocturnal dyspnea, palpitations, life-threatening arrhythmias, claudication. PULMONARY: Denies any shortness of breath, cough, phlegm/sputum, hemoptysis, pleuritic chest pain. SLEEP: Denies morning headaches, daytime somnolence or napping. Denies difficulty falling asleep, staying asleep, waking from sleep. Denies knowledge of snoring. GASTROINTESTINAL: Complain of loss of appetite Denies any type of dysphagia to either liquids or solids. Denies nausea, vomiting, pyrosis, early satiety, abdominal pain, diarrhea, constipation, or changes in stool consistency or caliber. Denies coffee-ground emesis, hematemesis, hematochezia, or melanotic stools. GENITOURINARY: Denies frequency, urgency, nocturia, hematuria or incontinence (Storage/Irritative symptoms.) Low urinary stream, straining to void, urinary intermittency or hesitancy, splitting of the voiding stream, terminal dribbling. ENDOCRINOLOGIC: Denies polyuria, polydipsia, polyphagia or heat/cold intolerances. HEMATOLOGIC: Denies thrombophilia/previous clots, or coagulopathy/bleeding disorders. ONCOLOGIC: Denies personal history of malignancy. DERMATOLOGIC: Denies rashes or pruritus. PSYCHIATRIC: Denies any suicidal or homicidal ideation. Denies hallucinations. PHYSICAL EXAM GENERAL APPEARANCE: The patient is awake, alert, and oriented, in no acute cardiopulmonary distress. NEUROLOGICAL: Cranial nerves II-XII grossly intact. Motor is 5/5 in bilateral upper and lower extremities proximal to distal. No sensory deficits. HEENT: Face is symmetric. Pupils are equal and reactive. Extraocular movements are intact. NECK: Supple. No JVD. No thyromegaly. No submental, submandibular, pre- /postauricular, occipital or supraclavicular lymphadenopathy. CHEST: Normal chest expansion. No Telemetry. LUNGS: Absence of any rales, rhonchi or any wheezing. CARDIOVASCULAR: Regular. S1 and S2 normal. No appreciable rubs, murmurs or gallops. ABDOMEN: Soft, nontender, and nondistended. There is no rebound, voluntary guarding, or rigidity. : Deferred. No Gallagher. EXTREMITIES: Non-edematous and not cyanotic. No clubbing. Good capillary refill. SKIN: No skin breakdown. Vital Signs (last 8hr) Date Time Temp Pulse Resp B/P (MAP) Pulse Ox O2 Delivery O2 Flow Rate FiO2 06/17/24 07:00 116 21 108/57 (74) 99 28 06/17/24 06:45 120 23 127/51 (76) 99 06/17/24 06:30 118 12 109/49 (69) 100 06/17/24 06:15 119 24 119/52 (74) 99 28 06/17/24 06:00 117 22 98/63 (75) 99 28 06/17/24 05:45 118 18 104/42 (62) 99 28 06/17/24 05:33 117/45 06/17/24 05:30 118 22 109/46 (67) 99 28 06/17/24 05:15 119 23 117/45 (69) 100 28 06/17/24 05:00 118 23 110/42 (64) 100 28 06/17/24 04:45 118 26 103/67 (79) 99 28 06/17/24 04:31 114 15 06/17/24 04:30 112 22 116/45 (68) 100 28 06/17/24 04:15 115 23 125/47 (73) 100 28 06/17/24 04:00 98 Room Air* 0 21 06/17/24 04:00 97.5 114 19 122/45 (70) 100 28 06/17/24 03:45 115 26 113/45 (67) 100 28 06/17/24 03:30 116 28 138/52 (80) 99 28 06/17/24 03:15 115 25 112/36 (61) 100 28 06/17/24 03:00 117 28 115/39 (64) 99 28 06/17/24 02:45 113 32 123/59 (80) 100 28 06/17/24 02:30 113 27 136/57 (83) 100 28 06/17/24 02:15 96.4 114 22 137/53 (81) 100 06/17/24 02:00 100 Nasal Cannula* 2 06/17/24 01:47 96.3 114 20 132/51 98 Room Air* 0 21 LABS: Laboratory: Test 06/17/24 09:10 06/17/24 07:00 06/17/24 06:05 06/17/24 04:28 Range/Units White Blood Count 14.2 H 4.8-10.8 K/uL Red Blood Count 2.75 L 4.50-6.20 MIL/uL Hemoglobin 8.4 L 14.0-18.0 g/dL Hematocrit 27.0 L 42-54 % Mean Corpuscular Volume 98.2 79-99 fL Mean Corpuscular Hemoglobin 30.5 27.0-33.0 pg Mean Corpuscular Hemoglobin Concent 31.1 L 32.0-36.0 g/dL Red Cell Distribution Width 15.2 11.0-15.5 % Platelet Count 28 #L 130-400 K/uL Mean Platelet Volume 7.5-10.5 fL Immature Granulocyte % (Auto) 5.8 H 0-1 % Neutrophils (%) (Auto) 82.4 H 40.0-77.0 % Lymphocytes (%) (Auto) 5.3 L 21.0-51.0 % Monocytes (%) (Auto) 5.9 3.0-13.0 % Eosinophils (%) (Auto) 0.0 0.0-8.0 % Basophils (%) (Auto) 0.6 0.0-5.0 % Neutrophils # (Auto) 11.7 H 1.8-7.7 K/uL Lymphocytes # (Auto) 0.8 L 1.0-4.8 K/uL Monocytes # (Auto) 0.8 0.1-1.0 K/uL Eosinophils # (Auto) 0.00 0.00-0.70 K/uL Basophils # (Auto) 0.08 0.00-0.20 K/uL Absolute Immature Granulocyte (auto 0.82 0-1 K/uL Nucleated Red Blood Cells 0.0 0.0-0.19 % Sodium Level 143 136-145 mmol/L Potassium Level 5.0 3.5-5.1 mmol/L Chloride Level 104 101-111 mmol/L Carbon Dioxide Level 5 *L 21-32 mmol/L Blood Urea Nitrogen 107 *H 7-18 mg/dL Creatinine 9.7 *H 0.5-1.3 mg/dL Glomerular Filtration Rate Calc 5 >90 mL/min Random Glucose 158 H 70-105 mg/dL Total Calcium 8.3 L 8.5-10.1 mg/dL Magnesium Level 1.80 1.80-2.40 mg/dL Blood Gas Specimen Type Arterial Arterial Blood pH 6.870 *L 7.350-7.450 Arterial Blood Partial Pressure CO2 < 15 *L 35-48 mmHg Arterial Blood Partial Pressure O2 138.9 H 83.0-108.0 mmHg Arterial Blood HCO3 2.3 L 21.0-28.0 mmol/L Arterial Blood Oxygen Saturation 97.8 94.0-98.0 % Arterial Blood Base Excess -29.3 L -2.0-3.0 mmol/L Hemoglobin (Blood Gas) 9.7 L 13.5-17.5 g/dL Sodium (Blood Gas) 137 136-145 MMOL/L Bedside Potassium (Blood Gas) 4.8 H 3.4-4.5 MMOL/L Bedside Chloride (Blood Gas) 109 H 98-107 MMOL/L Bedside Glucose (Blood Gas) 139 H 65-95 MG/DL Bedside Ionized Calcium (Blood Gas) 1.24 1.15-1.33 MMOL/L Bedside Lactic Acid (Blood Gas) 9.70 *H 0.36-0.75 MMOL/L Blood Gas Temperature 37.0 35.5-37.0 CELSIUS FiO2 21.0 % Blood Gas Specimen Comment LR RA Lactic Acid Level 9.1 H 0.8-2.5 mmol/L Troponin I High Sensitivity 252 *H 4-75 ng/L Blood Gas Flow-by 3.00 0.00-15.00 L/min Blood Gas Vent Mode NC ROOM AIR Test 06/17/24 04:23 06/17/24 01:31 06/16/24 23:49 06/16/24 22:12 Range/Units Whole Blood Glucose 95 70-110 MG/DL Erythrocyte Sedimentation Rate 45 H 0-20 MM/HR Prothrombin Time 11.9 H 9.6-11.6 SEC Prothromb Time International Ratio 1.14 0.85-1.15 Activated Partial Thromboplast Time 49.8 H 26.3-35.5 SEC Total Bilirubin 0.4 0.2-1.0 mg/dL Direct Bilirubin 0.1 0.0-0.3 mg/dL Aspartate Amino Transf (AST/SGOT) 29 10-37 U/L Alanine Aminotransferase (ALT/SGPT) 42 12-78 U/L Alkaline Phosphatase 137 H 50-136 U/L Total Creatine Kinase 82 21-232 U/L B-Type Natriuretic Peptide 630 H 0-100 pg/mL Total Protein 7.1 6.0-8.3 g/dL Albumin 2.9 L 3.5-5.0 g/dL Triglycerides Level 175 30-200 mg/dL Cholesterol Level 191 <200 mg/dL LDL Cholesterol 113 H 0-99 mg/dL HDL Cholesterol 44 29-71 mg/dL Procalcitonin 0.60 H 0.05-0.5 ng/mL Thyroid Stimulating Hormone (TSH) 0.67 0.36-3.74 uIU/mL Urine Color LIGHT-YELLOW YELLOW Urine Appearance CLEAR CLEAR Urine pH 5.5 5.0-8.0 Urine Specific [place] 1.015 1.001-1.031 Urine Protein 200 H NEGATIVE mg/dL Urine Glucose (UA) NEGATIVE NEGATIVE mg/dL Urine Ketones 10 H NEGATIVE mg/dL Urine Occult Blood SMALL H NEGATIVE Urine Nitrate NEGATIVE NEGATIVE Urine Bilirubin NEGATIVE NEGATIVE mg/dL Urine Urobilinogen 0.2 0.2-1.0 mg/dL Urine Leukocyte Esterase NEGATIVE NEGATIVE Ronaldo/uL Urine RBC 0-1 0-1 /HPF Urine WBC 2-5 H 0-1 /HPF Urine Squamous Epithelial Cells RARE 0-2 /HPF Urine Bacteria RARE None Seen /HPF Urine Random Sodium 49 40-220 mmol/l Urine Random Potassium 29 25-125 mmol/L Urine Random Chloride 67 L 110-250 mmol/L Influenza Type A Antigen Negative For Type A NEGATIVE Influenza Type B Antigen Negative For Type B NEGATIVE SARS-CoV-2 Antigen (Rapid) PRESUMPTIVE NEGATIVE NEGATIVE Group A Streptococcus Rapid negative NEGATIVE Test 06/16/24 20:54 06/16/24 20:31 Range/Units Hemoglobin A1c 7.3 H 4.0-6.0 % Estimated Average Glucose (eAG) 163 H 70-126 mg/dL White Cell Morphology Comment See comments Platelet Morphology Comment MARKED DECREASE Red Blood Cell Morphology See comments C-Reactive Protein, Quantitative 16.10 H 0.5-3.0 mg/L Current Medications Medications (Trade) Dose Ordered Sig/Roderick Route PRN Reason Start Time Stop Time Status Last Admin Dose Admin Albuterol Sulfate (Proventil 0.083% 2.5mg/3ml) 10 mg ONCE STAT IH 06/17/24 04:05 06/17/24 04:12 DC 06/17/24 04:31 10 MG Calcium Gluconate (Calcium Gluc 1gm Vial) 1 gm AD STAT IV 06/17/24 04:05 06/17/24 04:12 DC 06/17/24 04:21 1 GM Cefepime HCl (MAXipime 1 GM vial) 0.25 gm Q24H IVPB 06/17/24 04:00 06/27/24 03:59 06/17/24 04:58 0.25 GM Dextrose (D50w) 50 ml AD PRN IV HYPOGLYCEMIA PROTOCOL 06/17/24 01:00 06/17/24 01:01 DC Dextrose (D50w) 50 ml AD PRN IV HYPOGLYCEMIA PROTOCOL 06/17/24 01:00 07/17/24 00:59 Dextrose (D50w) 50 ml ONCE STAT IV 06/17/24 04:05 06/17/24 04:12 DC 06/17/24 04:21 50 ML Famotidine (Pepcid 20mg Vial) 20 mg Q48H IV 06/17/24 01:00 07/17/24 00:59 06/17/24 02:54 20 MG Glucagon (Glucagon 1mg Kit) 1 mg AD PRN IM HYPOGLYCEMIA PROTOCOL 06/17/24 01:00 06/17/24 01:01 DC Glucagon (Glucagon 1mg Kit) 1 mg AD PRN IM HYPOGLYCEMIA PROTOCOL 06/17/24 01:00 07/17/24 00:59 Insulin Human Regular (humuLIN R 100 UNIT/ML 3ML) 10 unit ONCE STAT IV 06/17/24 04:05 06/17/24 04:12 DC 06/17/24 04:28 10 UNIT Insulin Human Regular (humuLIN R 100 UNIT/ML 3ML) INSULIN SLIDING SCAL... ACHS SQ 06/17/24 07:30 07/17/24 07:29 Metronidazole/ Sodium Chloride (flaGYL) 500 mg Q8H IV 06/17/24 05:00 06/27/24 04:59 06/17/24 04:58 500 MG Norepinephrine 250 ml @ 0 mls/hr PROTOCOL IV 06/16/24 22:00 07/16/24 21:59 06/17/24 05:33 24.5 MLS/HR Piperacillin Sod/ Tazobactam Sod (Zosyn 3.375gm+NS 50ml) 3.375 gm Q12H IV 06/16/24 21:30 06/17/24 01:03 DC 06/16/24 21:42 3.375 GM Piperacillin Sod/ Tazobactam Sod (Zosyn 3.375gm+NS 50ml) 3.375 gm Q12H IVPB 06/17/24 01:00 06/17/24 04:00 DC 06/17/24 02:54 3.375 GM Sodium Bicarbonate / Dextrose 1,000 ml @ 0 mls/hr Q0M IVP 06/17/24 05:00 06/17/24 04:58 DC Sodium Bicarbonate 150 meq/Dextrose 1,150 ml @ 100 mls/hr [id number] IVP 06/17/24 05:00 07/17/24 04:59 06/17/24 05:14 100 MLS/HR Sodium Polystyrene Sulfonate (kayEXALate 15 GM/60 ML) 15 gm Q2H PO 06/16/24 21:30 06/16/24 23:31 DC 06/16/24 22:21 15 GM Sodium Chloride 1,000 ml @ 150 mls/hr Q6H40M IV 06/16/24 23:00 06/17/24 09:10 DC 06/17/24 05:15 150 MLS/HR Sodium Chloride (NS 50ml) 50 ml AD IV 06/17/24 01:00 06/17/24 01:05 DC Thiamine HCl (Vitamin B-1) 100 mg DAILY IVP 06/17/24 09:00 07/17/24 08:59 06/17/24 09:03 100 MG Vancomycin HCl (Vancomycin 750mg) 750 mg Q96H IVPB 06/20/24 22:00 06/30/24 21:59 Vancomycin HCl (Vancomycin Protocol) 1 each AD IV 06/17/24 01:30 07/01/24 01:29 DIAGNOSTICS / RADIOLOGY: [ ] PORTABLE CHEST RADIOGRAPH INDICATION: cp COMPARISON: 05/06/2024 FINDINGS: hospital monitor leads overlie the field of view. Tip of right PICC within the SVC. Heart size is normal. Mild calcific plaque is present along the aortic arch rosales. The pulmonary vascularity and mauricio appear normal. No abnormal pulmonary parenchymal opacity or consolidation identified. No significant pleural effusion noted. No pneumothorax detected. IMPRESSION: No radiographic evidence for any acute cardiopulmonary process. 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 Fall Precautions. Well lighted room through the day and minimize interruptions through the night to prevent acute delirium. PULMONARY: Supplemental 02 as needed BiPAP as necessary, for respiratory distress Titrate Fio2 to keep Spo2 > or = 90% DuoNeb�s and CPT as needed IS hourly while awake for pulmonary hygiene prn Out of bed to chair as tolerated Maintain aspiration precautions at all times CARDIOVASCULAR: Follow hemodynamics. Vital signs per facility protocol GI & NUTRITION: Continue nutritional support Aspirations precautions Prokinetic agents and laxatives as needed KIDNEYS & ELECTROLYTES: Strict monitoring of intake and output Daily weights Avoid nephrotoxic agents Monitor electrolytes and replace as needed Goal urine output of 30mL/hr or 0.5mL/kg/hr Medications to be dosed according to renal function. Avoid contrast if possible ENDOCRINE: Maintain blood glucose between 100-180 at all times. Insulin sliding scale for blood glucose management Hypoglycemia and hyperglycemia protocol in place INFECTIOUS DISEASE: Trend temperature, WBC and procalcitonin level Follow cultures, deescalate antibiotics as soon as possible. Panculture if new onset fever HEMATOLOGY & COAGULATION: Monitor H&H. Keep Hgb > 7 Transfuse 1 unit of PRBC for Hgb < 7 Transfuse 1 pack of platelets of platelets < 20, 000 Watch for any signs and symptoms of bleeding SKIN: Pressure ulcer prevention per facility protocol Specialty mattress as needed ORTHO/REHAB Continue PT/OT PRN: MEDICATIONS Tylenol 650 mg po every 4 hrs for fever zofran 4 mg IV every 6 hrs for n/v Hydralazine 5 mg IV every 4 hrs systolic pressure > 160 bowel regiment: lactulose 20 gm PO BID PRN constipation Supportive measures: Continue GI and DVT prophylaxis Disposition: Pending improvement in clinical condition All questions answered time spent: > 35 min CHRIS MARKS MD Jun 17, 2024 09:49
--- NOTE | 2024-06-17 09:53 | HMCIMG ---
ULTRASOUND RENAL COMPLETE INDICATION: NETO TECHNIQUE: Routine ultrasound of the kidneys and urinary bladder with grayscale and color Doppler imaging was performed in real-time, and subsequently made available for review. COMPARISON: No prior studies available for comparison. FINDINGS: The right kidney measures 9.7 x 4.9 x 4.6 cm. No abnormal mass demonstrated. No evidence for hydronephrosis or shadowing stone. The left kidney measures 10.1 x 5.5 x 4.8 cm. No abnormal mass demonstrated. No evidence for hydronephrosis or shadowing stone. Urinary bladder wall thickness measures 4.0 mm, but exaggerated due to incomplete distention. No free fluid demonstrated. IMPRESSION: Normal sonographic appearance of the kidneys and urinary bladder.
--- NOTE | 2024-06-17 10:00 | NUR ---
Encountered patient pulling on mike catheter tubing while in bed. Patient encouraged by Nurse Moe to avoid touching, tugging, or manipulating any part of the mike catheter to avoid infection or trauma. Patient verbalized understanding of education. Hematuria noted in mike bag, primary physician Dr. Escobar aware, no further needs noted.
--- NOTE | 2024-06-17 10:43 | HMCIMG ---
CT ABDOMEN WITHOUT CONTRAST. CT PELVIS WITHOUT CONTRAST. INDICATION: Renal failure TECHNIQUE: Routine transaxial imaging using 5 mm slice thickness through the abdomen and pelvis without the administration of IV contrast. Thin slice reconstructions are also provided. Coronal and sagittal reformatted images acquired for interpretation. CT was performed with one or more of the following dose reduction techniques: Automated exposure control, adjustment of the mA and/or kV according to patient size, or use of iterative reconstruction technique. COMPARISON: None FINDINGS: Diagnostic sensitivity of this examination is limited by patient motion artifact. ON NONCONTRAST IMAGING: ABDOMEN: Heart size is normal. Mitral annular calcific plaque. Visible lung bases are clear. No abnormal renal calcifications, hydronephrosis, perinephric inflammation, or proximal hydroureter detected. The liver is normal in size and smooth in contour without biliary duct dilation. The spleen is normal in size and attenuation. Several miniscule calcifications within the gallbladder lumen. The pancreas appears normal without pancreatic duct dilation. The adrenal glands appear normal. No significant abdominal, retrocrural or retroperitoneal adenopathy noted. No evidence for intra-abdominal free air or organized fluid collection. Mild calcific plaque is noted along the abdominal aortic and iliac vessel rosales without aneurysmal dilation. PELVIS: Gallagher catheter within the nearly empty urinary bladder. Urinary bladder wall thickening is more than expected for empty urinary bladder. No evidence for free air or organized pelvic fluid collection. No significant pelvic adenopathy detected. Mild to moderate small and large bowel liquid contents. A few diverticula along the distal colon. Terminal ileum appears unremarkable. The appendix appears normal. Mild thoracolumbar spondylosis. IMPRESSION: 1. Probable mild enterocolitis with mild to moderate small and large bowel liquid contents. 2. Cholelithiasis. 3. Urinary bladder wall thickening, more than expected for empty urinary bladder. Correlation with urine studies is recommended. 4. Mild distal colonic diverticulosis. 5. Arteriosclerotic disease as described.
--- NOTE | 2024-06-17 10:45 | NUR ---
1380 Dr. Dowd notified via phone call of abnormal ABG, hypotension, mental status and current drips. As per Dr. Dowd, no orders given at this time, wait till he rounds at bedside. [id number] Eric Alexandre notified of patient status and tachycardia. Orders provided to switch to neosynephrine from Levophed. Orders carried out.
[2024-06-17] MEDS: phenylEPHRINE HCL 100 MG in 0.9% NACL 250ML 240 ML IV PRN (10:50)
[2024-06-17 13:33] LABS: POTASSIUM 4.7 mmol/L (3.5-5.1)
[2024-06-17 13:36] LABS: CREATININE 9.7 mg/dL (0.5-1.3)
--- NOTE | 2024-06-17 14:15 | NUR ---
BEDSIDE SWALLOW EVAL COMPLETED. +s/s of aspiration. Recommend NPO, short term alternate means of nutrition/hydration. SURG PHYSICIAN ASST will re-evaluate within 2-3 days. SURG PHYSICIAN ASST reviewed results and recommendations with patient and nurse Abhi. SURG PHYSICIAN ASST educated patient on risks and consequences of aspiration. Speech therapy not warranted at this time as patient is confused and not following commands for treatment. All questions answered. Addendum: 06/17/[address] [facility] CARLOS PORTER Amended: Links added.
--- NOTE | 2024-06-17 14:30 | PN ---
[facility] PROGRESS NOTE Date Patient Seen: Jun 17, 2024 Time of Visit: 14:26 Supervising Physician: Dr. Arpit Stanford Primary Care Physician: [None-recently relocated from [place]] Outpatient Specialists: [ ] Inpatient Consults: [facility] team, nephro: Dr. Dowd, cardio: Dr. Bae] PROBLEM LIST: Septic shock, requiring pressor-POA Acute encephalopathy; likely multifactorial infectious, uremic and toxic metabolic-POA Severe metabolic acidosis-POA Acute renal failure, severe-POA Uremia-POA Severe hyperkalemia-POA Resolved Thrombocytopenia-POA Lactic acidosis-POA Severe lactic acidosis-POA NSTEMI, rule-out demand ischemia vs true cardiac etiology-POA INTERVAL HISTORY: 06/17/2024: At the time of my evaluation, the patient was lying in bed. He is generally confused and critically ill appearing. Currently on the monitor the patient is borderline hypotensive 91/35 and a heart rate of 110 and respiratory rate of 26. The patient remains on a nasal cannula for oxygen supplementation. Laboratory data was significant for a WBC of 14.2, H&H 8.4/27.0 and a platelet count of 28. Chemistry panel showed sodium of 143, potassium 5.0, chloride is 104, CO2 of five, BUN 107, creatinine of 9.7 and a GFR of five. Anion gap of 34, lactic acid 9.1 and procalcitonin of 0.60. ABG this a.m. showed a pH of 6.87, pCO2 less than 15, PO2 138.9 and HC03 of 2.3. I currently do not see any preliminary microbiology data. CT of the abdomen, showed mild enterocolitis, cholelithiasis and urinary bladder wall thickening. The patient was started on antibiotic coverage with vancomycin, cefepime and Flagyl. The patient is also on pressor therapy with phenylephrine and is also on a bicarb drip. No other complaint. REVIEW OF SYSTEMS: Unable to perform 12 point ROS due to patient's encephalopathy. PHYSICAL EXAM: GENERAL: Lethargic, weak HEENT: Normocephalic, atraumatic, dry mucosa NECK: Supple, no JVD, trachea midline LUNGS: Clear breath sounds bilaterally. No wheezes HEART: Regular rate and rhythm. Normal S1 and S2, positive murmurs , tachycardic ABD: Abdomen soft, nontender. Bowel sounds present EXT: No clubbing, cyanosis, or edema, bilateral feet wound with toe amputations with dressing CDI NEURO: Deferred Vital Signs (last 8hr) Date Time Temp Pulse Resp B/P (MAP) Pulse Ox O2 Delivery O2 Flow Rate FiO2 06/17/24 12:00 98.2 06/17/24 11:00 119 24 106/41 (62) 99 06/17/24 10:51 122 32 103/35 (57) 95 06/17/24 10:45 122 32 100/32 (54) 100 06/17/24 10:30 123 27 86/34 (51) 100 06/17/24 10:15 134 14 98/29 (52) 100 06/17/24 10:09 128 31 125/44 (71) 97 06/17/24 10:00 121 27 72/26 (41) 94 06/17/24 09:45 120 25 99/38 (58) 98 06/17/24 09:41 120 25 99/38 (58) 98 06/17/24 09:30 121 17 104/41 (62) 97 06/17/24 09:26 120 23 105/58 (74) 98 06/17/24 09:15 120 24 99/39 (59) 97 06/17/24 09:00 119 22 102/40 (60) 98 06/17/24 08:45 119 23 105/37 (59) 98 06/17/24 08:30 119 19 104/42 (62) 98 06/17/24 08:15 118 19 90/46 (61) 98 06/17/24 08:00 97 Room Air* 0 21 06/17/24 08:00 97.3 120 22 95/58 (70) 99 06/17/24 08:00 97.3 06/17/24 07:00 116 21 108/57 (74) 99 28 06/17/24 06:45 120 23 127/51 (76) 99 28 06/17/24 06:30 118 12 109/49 (69) 100 28 LABS: Hematology Labs: Test 06/17/24 09:10 06/17/24 01:31 06/16/24 20:31 Range/Units White Blood Count 14.2 H 4.8-10.8 K/uL Red Blood Count 2.75 L 4.50-6.20 MIL/uL Hemoglobin 8.4 L 14.0-18.0 g/dL Hematocrit 27.0 L 42-54 % Mean Corpuscular Volume 98.2 79-99 fL Mean Corpuscular Hemoglobin 30.5 27.0-33.0 pg Mean Corpuscular Hemoglobin Concent 31.1 L 32.0-36.0 g/dL Red Cell Distribution Width 15.2 11.0-15.5 % Platelet Count 28 #L 130-400 K/uL Mean Platelet Volume 7.5-10.5 fL Immature Granulocyte % (Auto) 5.8 H 0-1 % Neutrophils (%) (Auto) 82.4 H 40.0-77.0 % Lymphocytes (%) (Auto) 5.3 L 21.0-51.0 % Monocytes (%) (Auto) 5.9 3.0-13.0 % Eosinophils (%) (Auto) 0.0 0.0-8.0 % Basophils (%) (Auto) 0.6 0.0-5.0 % Neutrophils # (Auto) 11.7 H 1.8-7.7 K/uL Lymphocytes # (Auto) 0.8 L 1.0-4.8 K/uL Monocytes # (Auto) 0.8 0.1-1.0 K/uL Eosinophils # (Auto) 0.00 0.00-0.70 K/uL Basophils # (Auto) 0.08 0.00-0.20 K/uL Absolute Immature Granulocyte (auto 0.82 0-1 K/uL Nucleated Red Blood Cells 0.0 0.0-0.19 % Erythrocyte Sedimentation Rate 45 H 0-20 MM/HR White Cell Morphology Comment See comments Platelet Morphology Comment MARKED DECREASE Red Blood Cell Morphology See comments Chemistry Labs: Test 06/17/24 13:06 06/17/24 09:10 06/17/24 06:05 06/17/24 04:23 Range/Units Sodium Level 144 136-145 mmol/L Potassium Level 4.7 3.5-5.1 mmol/L Chloride Level 103 101-111 mmol/L Carbon Dioxide Level 5 *L 21-32 mmol/L Blood Urea Nitrogen 102 *H 7-18 mg/dL Creatinine 9.7 *H 0.5-1.3 mg/dL Glomerular Filtration Rate Calc 5 >90 mL/min Random Glucose 162 H 70-105 mg/dL Total Calcium 8.3 L 8.5-10.1 mg/dL Troponin I High Sensitivity 581 *H 4-75 ng/L Magnesium Level 1.80 1.80-2.40 mg/dL Lactic Acid Level 9.1 H 0.8-2.5 mmol/L Whole Blood Glucose 95 70-110 MG/DL Test 06/17/24 01:31 06/16/24 20:54 06/16/24 20:31 Range/Units Total Bilirubin 0.4 0.2-1.0 mg/dL Direct Bilirubin 0.1 0.0-0.3 mg/dL Aspartate Amino Transf (AST/SGOT) 29 10-37 U/L Alanine Aminotransferase (ALT/SGPT) 42 12-78 U/L Alkaline Phosphatase 137 H 50-136 U/L Total Creatine Kinase 82 21-232 U/L B-Type Natriuretic Peptide 630 H 0-100 pg/mL Total Protein 7.1 6.0-8.3 g/dL Albumin 2.9 L 3.5-5.0 g/dL Triglycerides Level 175 30-200 mg/dL Cholesterol Level 191 <200 mg/dL LDL Cholesterol 113 H 0-99 mg/dL HDL Cholesterol 44 29-71 mg/dL Procalcitonin 0.60 H 0.05-0.5 ng/mL Thyroid Stimulating Hormone (TSH) 0.67 0.36-3.74 uIU/mL Hemoglobin A1c 7.3 H 4.0-6.0 % Estimated Average Glucose (eAG) 163 H 70-126 mg/dL C-Reactive Protein, Quantitative 16.10 H 0.5-3.0 mg/L Coagulation Labs: Test 06/17/24 01:31 Range/Units Prothrombin Time 11.9 H 9.6-11.6 SEC Prothromb Time International Ratio 1.14 0.85-1.15 Activated Partial Thromboplast Time 49.8 H 26.3-35.5 SEC DIAGNOSTICS / RADIOLOGY RESULTS: [ ] PLAN 06/17/2024: For now, we are going to continue current management for the patient. We will continue on oxygenation supplementation and adjust as necessary. The patient will continue on pressor therapy and bicarb drip. He will remain on antibiotic therapy regimen currently with vanco, Flagyl and cefepime. I am going to request a random cortisol level and we will positively start the patient on hydrocortisone. We will repeat surveillance labs in the morning. We will follow the under presser's recommendation and management. We will continue to monitor the patient's progress and response to management. We will continue to provide general supportive care, GI and DVT prophylaxis. Further orders per attending MD and hospital course. NEURO: Minimize central acting medications as possible. Fall Precautions. Well lighted room through the day and minimize interruptions through the night to prevent acute delirium. PULMONARY: Supplemental 02 as needed Titrate Fio2 to keep Spo2 > or = 90% DuoNeb�s and CPT as needed IS hourly while awake for pulmonary hygiene Out of bed to chair as tolerated VAP Bundle CARDIOVASCULAR: Follow hemodynamics. Titrate vasopressor to keep MAP >65 or systolic blood pressure >95mmHg DIPS: Phenylephrine LINES: PIV's GI & NUTRITION: Continue nutritional support Aspirations precautions Prokinetic agents and laxatives as needed KIDNEYS & ELECTROLYTES: Strict monitoring of intake and output Daily weights Avoid nephrotoxic agents Monitor electrolytes and replace as needed Goal urine output of 30mL/hr or 0.5mL/kg/hr Urine output: [ ] Fluid Balance: [ ] ENDOCRINE: Maintain blood glucose between 100-180 at all times. Insulin sliding scale for blood glucose management INFECTIOUS DISEASE: Trend temperature. Rosenberg-culture if febrile. Micro: [ ] Antibiotics: [ ] HEMATOLOGY & COAGULATION: Monitor H&H. Keep Hgb > 7 Transfuse 1 unit of PRBC for Hgb < 7 Transfuse 1 pack of platelets of platelets < 20, 000 Watch for any signs and symptoms of bleeding SKIN: Pressure ulcer prevention per facility protocol Rehab: PT/OT Prophylaxis: GI: Famotidine DVT: SCD Code Status: Full Resuscitation Disposition: ICU Other: I personally spent 40 minutes of critical care time in treatment of this patient. This includes patient management, time at bedside, time reviewing tests, labs, appropriate images and studies, documentation, and patient care coordination. This time excludes separately billable procedures. Case was discussed and seen with my supervising physician. The above plan was formulated and agreed upon. LALI BOLDEN NP Jun 17, 2024 14:30
--- NOTE | 2024-06-17 15:04 | CONS ---
NEPHROLOGY CONSULTATION NOTE Date/Time Patient Seen: Jun 17, 2024 [id number] Reason for Consultation: Renal failure, thrombocytopenia, generalized weakness HISTORY OF PRESENT ILLNESS: This is a 69-year-old male with a past medical history of osteomyelitis S/p left 4th and 5th toe and right 3rd toe amputation, anemia, chronic pain, diabetes mellitus type 2, hypertension, recent COVID-19 infection. He presented to the emergency room via EMS from [facility] with complaints of low platelets, poor appetite and generalized weakness. Influenza and COVID swabs were negative CT of the abdomen showed mild enterocolitis with mild to moderate small and large bowel liquid contents. He was admitted to the ICU for further medical management of septic shock He continues to require vasopressors to maintain blood pressure. Continues with a severe lactic acidosis. Pending blood culture results He continues on antibiotics, including vancomycin He continues with altered mental status In the emergency room he was noted to have elevated BUN/creatinine and hyperkalemia. He has received hyperkalemic cocktail Renal function continues to worsen Potassium level has been improved. Renal ultrasound was noted He was seen in the ICU, continues with altered mental status Family at the bedside Condition remains critical and guarded REVIEW OF SYSTEMS: Unable to obtain due to patient's status PAST MEDICAL HISTORY: Osteomyelitis of left 4 &5 th toe and right 3rd toe, anemia, chronic pain,diabetes mellitus type, and hypertension PAST SURGICAL HISTORY: Left 4th and 5th toe amputation, right great and 3rd toe amputation PAST SOCIAL HISTORY: Patient coming from [facility]. Patient denies smoking alcohol and recreational drug use FAMILY HISTORY: Noncontributory PHYSICAL EXAM: GENERAL: Lethargic. No acute distress. Well-nourished. EYES: EOMI. Anicteric. HENT: Moist mucous membranes. No scleral icterus. No cervical lymphadenopathy. LUNGS: Clear to auscultation bilaterally. No accessory muscle use. CARDIOVASCULAR: Regular rate and rhythm. No murmur. No JVD. ABDOMEN: Soft, non-tender and non-distended. No palpable masses. EXTREMITIES: No edema. Non-tender. SKIN: No rashes or lesions. Warm. NEUROLOGIC: No focal neurological deficits. CN II-XII grossly intact, but not individually tested. PSYCHIATRIC: Cooperative. Appropriate mood and affect. MEDICATIONS: [ ] Current Medications Medications (Trade) Dose Ordered Sig/Roderick Route PRN Reason Start Time Stop Time Status Last Admin Dose Admin Albuterol Sulfate (Proventil 0.083% 2.5mg/3ml) 10 mg ONCE STAT IH 06/17/24 04:05 06/17/24 04:12 DC 06/17/24 04:31 10 MG Calcium Gluconate (Calcium Gluc 1gm Vial) 1 gm AD STAT IV 06/17/24 04:05 06/17/24 04:12 DC 06/17/24 04:21 1 GM Cefepime HCl (MAXipime 1 GM vial) 0.25 gm Q24H IVPB 06/17/24 04:00 06/27/24 03:59 06/17/24 04:58 0.25 GM Dextrose (D50w) 50 ml AD PRN IV HYPOGLYCEMIA PROTOCOL 06/17/24 01:00 06/17/24 01:01 DC Dextrose (D50w) 50 ml AD PRN IV HYPOGLYCEMIA PROTOCOL 06/17/24 01:00 07/17/24 00:59 Dextrose (D50w) 50 ml ONCE STAT IV 06/17/24 04:05 06/17/24 04:12 DC 06/17/24 04:21 50 ML Famotidine (Pepcid 20mg Vial) 20 mg Q48H IV 06/17/24 01:00 07/17/24 00:59 06/17/24 02:54 20 MG Glucagon (Glucagon 1mg Kit) 1 mg AD PRN IM HYPOGLYCEMIA PROTOCOL 06/17/24 01:00 06/17/24 01:01 DC Glucagon (Glucagon 1mg Kit) 1 mg AD PRN IM HYPOGLYCEMIA PROTOCOL 06/17/24 01:00 07/17/24 00:59 Insulin Human Regular (humuLIN R 100 UNIT/ML 3ML) 10 unit ONCE STAT IV 06/17/24 04:05 06/17/24 04:12 DC 06/17/24 04:28 10 UNIT Insulin Human Regular (humuLIN R 100 UNIT/ML 3ML) INSULIN SLIDING SCAL... ACHS SQ 06/17/24 07:30 07/17/24 07:29 Metronidazole/ Sodium Chloride (flaGYL) 500 mg Q8H IV 06/17/24 05:00 06/27/24 04:59 06/17/24 12:03 500 MG Norepinephrine 250 ml @ 0 mls/hr PROTOCOL IV 06/16/24 22:00 07/16/24 21:59 06/17/24 05:33 24.5 MLS/HR Phenylephrine HCl 100 mg/Sodium Chloride 250 ml @ 0 mls/hr AD PRN IV TITRATE 06/17/24 10:30 07/17/24 10:29 06/17/24 10:50 6.58 MLS/HR Piperacillin Sod/ Tazobactam Sod (Zosyn 3.375gm+NS 50ml) 3.375 gm Q12H IV 06/16/24 21:30 06/17/24 01:03 DC 06/16/24 21:42 3.375 GM Piperacillin Sod/ Tazobactam Sod (Zosyn 3.375gm+NS 50ml) 3.375 gm Q12H IVPB 06/17/24 01:00 06/17/24 04:00 DC 06/17/24 02:54 3.375 GM Sodium Bicarbonate / Dextrose 1,000 ml @ 0 mls/hr Q0M IVP 06/17/24 05:00 06/17/24 04:58 DC Sodium Bicarbonate 150 meq/Dextrose 1,150 ml @ 100 mls/hr [id number] IVP 06/17/24 05:00 07/17/24 04:59 06/17/24 05:14 100 MLS/HR Sodium Polystyrene Sulfonate (kayEXALate 15 GM/60 ML) 15 gm Q2H PO 06/16/24 21:30 06/16/24 23:31 DC 06/16/24 22:21 15 GM Sodium Chloride 1,000 ml @ 150 mls/hr Q6H40M IV 06/16/24 23:00 06/17/24 09:10 DC 06/17/24 05:15 150 MLS/HR Sodium Chloride (NS 50ml) 50 ml AD IV 06/17/24 01:00 06/17/24 01:05 DC Thiamine HCl (Vitamin B-1) 100 mg DAILY IVP 06/17/24 09:00 07/17/24 08:59 06/17/24 09:03 100 MG Vancomycin HCl (Vancomycin 750mg) 750 mg Q96H IVPB 06/20/24 22:00 06/17/24 14:00 DC Vancomycin HCl (Vancomycin Protocol) 1 each AD IV 06/17/24 01:30 06/17/24 14:01 DC Vital Signs (last 8hr) Date Time Temp Pulse Resp B/P (MAP) Pulse Ox O2 Delivery O2 Flow Rate FiO2 06/17/24 13:15 110 25 116/43 (67) 99 06/17/24 13:00 111 24 104/24 (50) 100 06/17/24 12:45 113 20 104/52 (69) 99 06/17/24 12:30 112 25 111/40 (63) 99 06/17/24 12:15 112 26 109/48 (68) 100 06/17/24 12:00 114 30 125/47 (73) 100 06/17/24 12:00 98.2 06/17/24 11:45 98.2 115 20 110/49 (69) 98 06/17/24 11:30 115 18 104/53 (70) 100 06/17/24 11:15 115 29 94/38 (56) 99 06/17/24 11:00 119 24 106/41 (62) 99 06/17/24 10:51 122 32 103/35 (57) 95 06/17/24 10:45 122 32 100/32 (54) 100 06/17/24 10:30 123 27 86/34 (51) 100 06/17/24 10:15 134 14 98/29 (52) 100 06/17/24 10:09 128 31 125/44 (71) 97 06/17/24 10:00 121 27 72/26 (41) 94 06/17/24 09:45 120 25 99/38 (58) 98 06/17/24 09:41 120 25 99/38 (58) 98 06/17/24 09:30 121 17 104/41 (62) 97 06/17/24 09:26 120 23 105/58 (74) 98 06/17/24 09:15 120 24 99/39 (59) 97 06/17/24 09:00 119 22 102/40 (60) 98 06/17/24 08:45 119 23 105/37 (59) 98 06/17/24 08:30 119 19 104/42 (62) 98 06/17/24 08:15 118 19 90/46 (61) 98 06/17/24 08:00 97 Room Air* 0 21 06/17/24 08:00 97.3 120 22 95/58 (70) 99 06/17/24 08:00 97.3 06/17/24 07:00 116 21 108/57 (17) 99 28 DIAGNOSTICS / RADIOLOGY: REASON: RENAL FAILURE ORDERING PHYSICIAN: EUSEBIO POWELL PROCEDURE: ABD PEL WO - CT ABDOMEN/PELVIS W/O CONTRAST CT ABDOMEN WITHOUT CONTRAST. CT PELVIS WITHOUT CONTRAST. INDICATION: Renal failure TECHNIQUE: Routine transaxial imaging using 5 mm slice thickness through the abdomen and pelvis without the administration of IV contrast. Thin slice reconstructions are also provided. Coronal and sagittal reformatted images acquired for interpretation. CT was performed with one or more of the following dose reduction techniques: Automated exposure control, adjustment of the mA and/or kV according to patient size, or use of iterative reconstruction technique. COMPARISON: None FINDINGS: Diagnostic sensitivity of this examination is limited by patient motion artifact. ON NONCONTRAST IMAGING: ABDOMEN: Heart size is normal. Mitral annular calcific plaque. Visible lung bases are clear. No abnormal renal calcifications, hydronephrosis, perinephric inflammation, or proximal hydroureter detected. The liver is normal in size and smooth in contour without biliary duct dilation. The spleen is normal in size and attenuation. Several miniscule calcifications within the gallbladder lumen. The pancreas appears normal without pancreatic duct dilation. The adrenal glands appear normal. No significant abdominal, retrocrural or retroperitoneal adenopathy noted. No evidence for intra-abdominal free air or organized fluid collection. Mild calcific plaque is noted along the abdominal aortic and iliac vessel rosales without aneurysmal dilation. PELVIS: Gallagher catheter within the nearly empty urinary bladder. Urinary bladder wall thickening is more than expected for empty urinary bladder. No evidence for free air or organized pelvic fluid collection. No significant pelvic adenopathy detected. Mild to moderate small and large bowel liquid contents. A few diverticula along the distal colon. Terminal ileum appears unremarkable. The appendix appears normal. Mild thoracolumbar spondylosis. IMPRESSION: 1. Probable mild enterocolitis with mild to moderate small and large bowel liquid contents. 2. Cholelithiasis. 3. Urinary bladder wall thickening, more than expected for empty urinary bladder. Correlation with urine studies is recommended. 4. Mild distal colonic diverticulosis. 5. Arteriosclerotic disease as described. DICTATED BY: ROLANDO HAN MD DATE: 06/17/24 1000 REASON: NETO ORDERING PHYSICIAN: BRENDA MAI MD PROCEDURE: RENAL - US RENAL SONOGRAM ULTRASOUND RENAL COMPLETE INDICATION: NETO TECHNIQUE: Routine ultrasound of the kidneys and urinary bladder with grayscale and color Doppler imaging was performed in real-time, and subsequently made available for review. COMPARISON: No prior studies available for comparison. FINDINGS: The right kidney measures 9.7 x 4.9 x 4.6 cm. No abnormal mass demonstrated. No evidence for hydronephrosis or shadowing stone. The left kidney measures 10.1 x 5.5 x 4.8 cm. No abnormal mass demonstrated. No evidence for hydronephrosis or shadowing stone. Urinary bladder wall thickness measures 4.0 mm, but exaggerated due to incomplete distention. No free fluid demonstrated. IMPRESSION: Normal sonographic appearance of the kidneys and urinary bladder. DICTATED BY: ROLANDO HAN MD DATE: 06/17/2449 REASON: cp ORDERING PHYSICIAN: MARY CARR MD PROCEDURE: CXR1VW - CHEST 1VW PORTABLE CHEST RADIOGRAPH INDICATION: cp COMPARISON: 05/06/2024 FINDINGS: wet process miller head leads overlie the field of view. Tip of right PICC within the SVC. Heart size is normal. Mild calcific plaque is present along the aortic arch rosales. The pulmonary vascularity and mauricio appear normal. No abnormal pulmonary parenchymal opacity or consolidation identified. No significant pleural effusion noted. No pneumothorax detected. IMPRESSION: No radiographic evidence for any acute cardiopulmonary process. DICTATED BY: ROLANDO HAN MD DATE: 06/16/242153 LABORATORY: [ ] Hematology Labs: Test 06/17/24 09:10 06/17/24 01:31 06/16/24 20:31 Range/Units White Blood Count 14.2 H 4.8-10.8 K/uL Red Blood Count 2.75 L 4.50-6.20 MIL/uL Hemoglobin 8.4 L 14.0-18.0 g/dL Hematocrit 27.0 L 42-54 % Mean Corpuscular Volume 98.2 79-99 fL Mean Corpuscular Hemoglobin 30.5 27.0-33.0 pg Mean Corpuscular Hemoglobin Concent 31.1 L 32.0-36.0 g/dL Red Cell Distribution Width 15.2 11.0-15.5 % Platelet Count 28 #L 130-400 K/uL Mean Platelet Volume 7.5-10.5 fL Immature Granulocyte % (Auto) 5.8 H 0-1 % Neutrophils (%) (Auto) 82.4 H 40.0-77.0 % Lymphocytes (%) (Auto) 5.3 L 21.0-51.0 % Monocytes (%) (Auto) 5.9 3.0-13.0 % Eosinophils (%) (Auto) 0.0 0.0-8.0 % Basophils (%) (Auto) 0.6 0.0-5.0 % Neutrophils # (Auto) 11.7 H 1.8-7.7 K/uL Lymphocytes # (Auto) 0.8 L 1.0-4.8 K/uL Monocytes # (Auto) 0.8 0.1-1.0 K/uL Eosinophils # (Auto) 0.00 0.00-0.70 K/uL Basophils # (Auto) 0.08 0.00-0.20 K/uL Absolute Immature Granulocyte (auto 0.82 0-1 K/uL Nucleated Red Blood Cells 0.0 0.0-0.19 % Erythrocyte Sedimentation Rate 45 H 0-20 MM/HR White Cell Morphology Comment See comments Platelet Morphology Comment MARKED DECREASE Red Blood Cell Morphology See comments Chemistry Labs: Test 06/17/24 13:06 06/17/24 09:10 06/17/24 06:05 06/17/24 04:23 Range/Units Sodium Level 144 136-145 mmol/L Potassium Level 4.7 3.5-5.1 mmol/L Chloride Level 103 101-111 mmol/L Carbon Dioxide Level 5 *L 21-32 mmol/L Blood Urea Nitrogen 102 *H 7-18 mg/dL Creatinine 9.7 *H 0.5-1.3 mg/dL Glomerular Filtration Rate Calc 5 >90 mL/min Random Glucose 162 H 70-105 mg/dL Total Calcium 8.3 L 8.5-10.1 mg/dL Troponin I High Sensitivity 581 *H 4-75 ng/L Magnesium Level 1.80 1.80-2.40 mg/dL Lactic Acid Level 9.1 H 0.8-2.5 mmol/L Whole Blood Glucose 95 70-110 MG/DL Test 06/17/24 01:31 06/16/24 20:54 06/16/24 20:31 Range/Units Total Bilirubin 0.4 0.2-1.0 mg/dL Direct Bilirubin 0.1 0.0-0.3 mg/dL Aspartate Amino Transf (AST/SGOT) 29 10-37 U/L Alanine Aminotransferase (ALT/SGPT) 42 12-78 U/L Alkaline Phosphatase 137 H 50-136 U/L Total Creatine Kinase 82 21-232 U/L B-Type Natriuretic Peptide 630 H 0-100 pg/mL Total Protein 7.1 6.0-8.3 g/dL Albumin 2.9 L 3.5-5.0 g/dL Triglycerides Level 175 30-200 mg/dL Cholesterol Level 191 <200 mg/dL LDL Cholesterol 113 H 0-99 mg/dL HDL Cholesterol 44 29-71 mg/dL Procalcitonin 0.60 H 0.05-0.5 ng/mL Thyroid Stimulating Hormone (TSH) 0.67 0.36-3.74 uIU/mL Hemoglobin A1c 7.3 H 4.0-6.0 % Estimated Average Glucose (eAG) 163 H 70-126 mg/dL C-Reactive Protein, Quantitative 16.10 H 0.5-3.0 mg/L Coagulation Labs: Test 06/17/24 01:31 Range/Units Prothrombin Time 11.9 H 9.6-11.6 SEC Prothromb Time International Ratio 1.14 0.85-1.15 Activated Partial Thromboplast Time 49.8 H 26.3-35.5 SEC ASSESSMENT: Acute on chronic renal failure Severe Lactic acidosis Metabolic acidosis Hyperkalemia Septic shock, requiring pressor Acute encephalopathy Thrombocytopenia NSTEMI, rule-out demand ischemia vs true cardiac etiology PLAN: Labs, diagnostic, radiologic exams reviewed and interpreted by myself and supervising physician. We have reviewed external records in detail Order stat cortisol level Discontinue Vancomycin due to worsening renal function, use alternative antibiotic. Obtain UA, urine electrolytes, urine creatinine, urine osmolality Patient is not hemodynamically stable fo renal replacement therapy as he continues to require vasopressors to maintain blood pressure Risk and complications of hemodialysis were discussed with sister at the bedside Multiple questions were answered. Require close monitoring of renal function and electrolytes Order CBC, CMP, and electrolytes in am Follow up culture results BiPAP as necessary, for respiratory distress Continue with IV pressors as needed Monitor blood pressure adjust medication doses as needed Avoid hypotensive episodes May use Dilaudid 0.5 mg IV every 6 hours as needed for severe pain Monitor blood sugars Strict intake, output, and daily weight should be monitored Please renally adjust medications Avoid nephrotoxic and nonsteroidal drugs Avoid contrast if possible Will continue to monitor renal function, anemia, electrolytes Treatment plan discussed with patient Questions were answered We have discussed with the other team physicians in detail about the care plan We will continue to monitor the patient closely Thank you for allowing us to participate in the care of this patient Total critical care time spent with patient, nursing staff, critical care team over 35 minutes ATTESTATION BY PHYSICIAN I have seen and examined the patient. I reviewed the documentation, medical decision making, and treatment plan as noted by the mid-level provider above. I agree with the findings and plan of care. BRENDA MAI MD, [facility] Jun 17, 2024 15:04 BRENDA MIA MD Jun 17, 2024 20:22
--- NOTE | 2024-06-17 15:26 | NUR ---
DCP: HOME WITH HH Sw attempted to visit with pt who was not responding to questions asked, just zayra mc. Sw spoke to pt's 2 sisters Kaylah Callaway [phone] and sister Chuckie. Sister reports that [place], but he has never been [place] since [place] in [place] pt relocated to [place] from [facility]. On arrival to [place] pt was brought to [place] for evaluation. [place], pt was sent to [facility] for 6wks of ABX. Sister states he has been there 5 weeks and they do not want him to return to SNF. Family very unhappy with care received at facility and they feel he is worse than when he went in. Family would like for pt to go home with HH. Explained to sisters that pt does not have PCP which is needed for HH to be arranged. Sister states she is working on finding an accepting PCP, but has had no luck. Sister to try and secure MD before [place]. Per sister pt has cane, walker and shower. Sisters also mentioned that Dialysis is a possibility, it is being monitored. Sister state pt never and has no kids, parents are . Pt as many siblings, but these two sisters are most involved. Discussed MPOA, at this visit, pt does not appear able to complete MPOA, unable to voice understanding of form he was to sign. SW to follow pt and assist with completing if appropriate. CM to follow and assist as needed Addendum: 06/17/24 at 1543 by RITA HUSAIN Amended: Links added.
--- NOTE | 2024-06-17 15:49 | NUR ---
Clive left at heart clinic for new consult. Pending call back.
[2024-06-17] MEDS: MAGNESIUM 2GM PREMIX 50ML 50 ML IV ONE (16:03)
--- NOTE | 2024-06-17 16:44 | NUR ---
Nutritional Note: Pt is a poor historian, information obtained from sister. Pt not eating over 6days, with a 4-23kg wt loss in one month. Pt currently NPO. Recommend: -Initiate nutrition support if pt remains NPO >24-48hrs - TF Vital AF if bowel sounds present and pt hemodynamically stable. -Start TF @20ml/hr and advance per tolerance to goal rate 45ml/hr, H20 flush as per MD -If TF not feasible in 5-7days and pt remains NPO consider PN Renal-friendly, electrolyte adjusted. -continue Thiamine, -Supplement vit d, zinc, selenium and b complex vitamins. -Monitor for signs of refeeding syndrome - Electrolyte replacements per protocol -Monitor feeding tolerance, wt, and labs -If No BM >3days consider bowel stimulant. - Notify RD if additional nutrition concerns arise. SEE RD Nutritional Assessment for additional assessment information. Addendum: 06/17/24 at [address] Amended: Links added.
--- NOTE | 2024-06-17 17:02 | CONS ---
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 He was treated with IV antibiotic therapy and was discharged to the [facility] 05/09/2024 for continued antibiotic therapy and wound care. The patient is confused in his history is obtained from his sister who is reliable. His sister has been visiting him at the senior care and reports that one-week ago he was doing well but had a decline in his appetite, nausea, vomiting and culminating in altered mental status on 06/16/2024 prompting ER assessment. In the emergency department, the patient was found to have a WBC of 10.4 rising to 14.2, hemoglobin of 9.7, hematocrit of 30.2 and a platelet count of 32. He had evidence of acute on chronic renal failure with BUN of 113, creatinine 9.9, CO2 of 8 and potassium of 6.0. CRP was elevated at 16. His cardiac troponin initially was 139 rising today to 581 prompting cardiology consultation. The patient was admitted with septic shock, severe lactic acidosis with lactic acid of 9.1 today. He has been hypotensive requiring Andrew-Synephrine support. He also underwent fluid resuscitation on admission. According to his sister, there has been no known prior history of OR or coronary artery disease. There has been no prior history of CVA. There has been no mention of chest pain. An EKG on admission demonstrates sinus tachycardia, left anterior fascicular block pattern and nonspecific T-wave abnormalities and a heart rate of 117 beats per minute. Past Medical History: As outlined above and summarized below Past Surgical History: Right 1st and 2nd foot ray amputation, left 4th and 5th ray amputation Family History: Mother with CHF, diabetes and end-stage renal disease One sister with CHF Social History: The patient was living alone in [place]. His sister relocated him to the [facility] in May 2024 Habits: Non smoker. Occasional alcohol consumption. Smoked marijuana on occasion but none recently Review of Systems: Complete review of systems is unobtainable from the patient as he is confused. Otherwise as per HPI from his sister Physical Examination: GENERAL: Awake and alert but confused to person, place and time. He is able to recognize his sister. HEAD: Normal with no signs of head trauma. EYES: PERRLA, EOMI, conjunctiva and sclera normal. ENT: Hearing grossly intact, normal oropharynx. NECK: Supple without JVD. There is no tenderness, lymphadenopathy, or masses. No thyromegaly. Normal carotid upstrokes without bruits. LUNGS: Clear breath sounds bilaterally. No wheezes, or rhonchi. HEART: Underlying tachycardia. Normal S1 and S2 without murmurs, gallop or rub. VASC: Peripheral pulses nonpalpable. ABD: Bowel sounds normal, soft, nontender, no masses, no organomegaly. No audible bruits. : Not examined LYMPH: No lymphadenopathy noted. EXT: No pedal edema. There is a well-healed right 1st and 2nd ray amputation. The left 4th and 5th foot amputation has an ulcer at the base of the surgical site. There was no active drainage, no foul odor, there is surrounding erythema.] SKIN: No rashes or lesions noted. NEURO: Awake, and alert but disoriented. No focal sensory moves all extremities but has generalized weakness. Vital Signs (last 8hr) Date Time Temp Pulse Resp B/P (MAP) Pulse Ox O2 Delivery O2 Flow Rate FiO2 06/17/24 16:00 98.4 06/17/24 13:15 110 25 116/43 (67) 99 06/17/24 13:00 111 24 104/24 (50) 100 06/17/24 12:45 113 20 104/52 (69) 99 06/17/24 12:30 112 25 111/40 (63) 99 06/17/24 12:15 112 26 109/48 (68) 100 06/17/24 12:00 114 30 125/47 (73) 100 06/17/24 12:00 98.2 06/17/24 11:45 98.2 115 20 110/49 (69) 98 06/17/24 11:30 115 18 104/53 (70) 100 06/17/24 11:15 115 29 94/38 (56) 99 06/17/24 11:00 119 24 106/41 (62) 99 06/17/24 10:51 122 32 103/35 (57) 95 06/17/24 10:45 122 32 100/32 (54) 100 06/17/24 10:30 123 27 86/34 (51) 100 06/17/24 10:15 134 14 98/29 (52) 100 06/17/24 10:09 128 31 125/44 (71) 97 06/17/24 10:00 121 27 72/26 (41) 94 06/17/24 09:45 120 25 99/38 (58) 98 06/17/24 09:41 120 25 99/38 (58) 98 06/17/24 09:30 121 17 104/41 (62) 97 06/17/24 09:26 120 23 105/58 (74) 98 06/17/24 09:15 120 24 99/39 (59) 97 06/17/24 09:00 119 22 102/40 (60) 98 06/17/24 08:45 119 23 105/37 (59) 98 Laboratory: Hematology Labs: Test 06/17/24 09:10 06/17/24 01:31 06/16/24 20:31 Range/Units White Blood Count 14.2 H 4.8-10.8 K/uL Red Blood Count 2.75 L 4.50-6.20 MIL/uL Hemoglobin 8.4 L 14.0-18.0 g/dL Hematocrit 27.0 L 42-54 % Mean Corpuscular Volume 98.2 79-99 fL Mean Corpuscular Hemoglobin 30.5 27.0-33.0 pg Mean Corpuscular Hemoglobin Concent 31.1 L 32.0-36.0 g/dL Red Cell Distribution Width 15.2 11.0-15.5 % Platelet Count 28 #L 130-400 K/uL Mean Platelet Volume 7.5-10.5 fL Immature Granulocyte % (Auto) 5.8 H 0-1 % Neutrophils (%) (Auto) 82.4 H 40.0-77.0 % Lymphocytes (%) (Auto) 5.3 L 21.0-51.0 % Monocytes (%) (Auto) 5.9 3.0-13.0 % Eosinophils (%) (Auto) 0.0 0.0-8.0 % Basophils (%) (Auto) 0.6 0.0-5.0 % Neutrophils # (Auto) 11.7 H 1.8-7.7 K/uL Lymphocytes # (Auto) 0.8 L 1.0-4.8 K/uL Monocytes # (Auto) 0.8 0.1-1.0 K/uL Eosinophils # (Auto) 0.00 0.00-0.70 K/uL Basophils # (Auto) 0.08 0.00-0.20 K/uL Absolute Immature Granulocyte (auto 0.82 0-1 K/uL Nucleated Red Blood Cells 0.0 0.0-0.19 % Erythrocyte Sedimentation Rate 45 H 0-20 MM/HR White Cell Morphology Comment See comments Platelet Morphology Comment MARKED DECREASE Red Blood Cell Morphology See comments Chemistry Labs: Test 06/17/24 15:37 06/17/24 13:06 06/17/24 09:10 06/17/24 06:05 Range/Units Whole Blood Glucose 147 #H 70-110 MG/DL Sodium Level 144 136-145 mmol/L Potassium Level 4.7 3.5-5.1 mmol/L Chloride Level 103 101-111 mmol/L Carbon Dioxide Level 5 *L 21-32 mmol/L Blood Urea Nitrogen 102 *H 7-18 mg/dL Creatinine 9.7 *H 0.5-1.3 mg/dL Glomerular Filtration Rate Calc 5 >90 mL/min Random Glucose 162 H 70-105 mg/dL Total Calcium 8.3 L 8.5-10.1 mg/dL Troponin I High Sensitivity 581 *H 4-75 ng/L Magnesium Level 1.80 1.80-2.40 mg/dL Lactic Acid Level 9.1 H 0.8-2.5 mmol/L Test 06/17/24 01:31 06/16/24 20:54 06/16/24 20:31 Range/Units Total Bilirubin 0.4 0.2-1.0 mg/dL Direct Bilirubin 0.1 0.0-0.3 mg/dL Aspartate Amino Transf (AST/SGOT) 29 10-37 U/L Alanine Aminotransferase (ALT/SGPT) 42 12-78 U/L Alkaline Phosphatase 137 H 50-136 U/L Total Creatine Kinase 82 21-232 U/L B-Type Natriuretic Peptide 630 H 0-100 pg/mL Total Protein 7.1 6.0-8.3 g/dL Albumin 2.9 L 3.5-5.0 g/dL Triglycerides Level 175 30-200 mg/dL Cholesterol Level 191 <200 mg/dL LDL Cholesterol 113 H 0-99 mg/dL HDL Cholesterol 44 29-71 mg/dL Procalcitonin 0.60 H 0.05-0.5 ng/mL Thyroid Stimulating Hormone (TSH) 0.67 0.36-3.74 uIU/mL Hemoglobin A1c 7.3 H 4.0-6.0 % Estimated Average Glucose (eAG) 163 H 70-126 mg/dL C-Reactive Protein, Quantitative 16.10 H 0.5-3.0 mg/L Coagulation Labs: Test 06/17/24 01:31 Range/Units Prothrombin Time 11.9 H 9.6-11.6 SEC Prothromb Time International Ratio 1.14 0.85-1.15 Activated Partial Thromboplast Time 49.8 H 26.3-35.5 SEC Diagnostics / Radiology: ULTRASOUND ARTERIAL DUPLEX LOWER EXTREMITY, BILATERAL 05/06/2024 INDICATION: Left foot wound TECHNIQUE: Routine grayscale, color Doppler, and power Doppler ultrasound of the bilateral lower extremity arteries were obtained. COMPARISON: None FINDINGS: Velocities in cm/sec. RIGHT: SKILL LABOR: 224 SFA: Prox 151, Mid 148, Distal 183 Popliteal: 194 proximally and 124 distally Anterior Tibial: 45 distally Posterior Tibial: 98 Dorsalis Pedis: 65 LEFT: SKILL LABOR: 130 SFA: Prox 159, Mid 125, Distal 136 Popliteal: 150 proximally and 89 distally Anterior Tibial: 88 distally Posterior Tibial: 129 Dorsalis Pedis: 94 Mild calcific plaque scattered along both lower extremity arterial system rosales. IMPRESSION: Elevated velocities on the right greater than left and arteriosclerotic disease as described, without any evidence for high grade flow-rate limiting stenosis or occlusion Impression and Plan: Septic shock Severe lactic acidosis with lactic acid of 9.1: -continues to require vasopressor support -management per primary and critical care team Acute on chronic renal failure with admission creatinine of 9.9 and estimated GFR of 5 (prior GFR of 30 and creatinine of 2.3 on 05/05/2024): -multifactorial including poor appetite, vomiting, and recent loose stools (per sister's report) -defer management to primary and Nephrology Type 2 OR with troponin rising to 581 in the setting of septic shock, severe lactic acidosis, acute renal failure: -no ischemic EKG changes on EKG and no complaints of chest pain reported -at this time he is not a candidate for antiplatelet therapy given his thrombocytopenia and he is not a candidate for beta-miguel a therapy given his hypotension/septic shock requiring vasopressor support -defer statin therapy given septic shock -we will follow clinical course Thrombocytopenia with platelet count of 28: -in the setting of septic shock -continue to trend CBC Comorbidities: Osteomyelitis of the left 4th and 5th ray amputation during admission 05/05/2024 Hypertension Hyperlipidemia Type 2 diabetes mellitus Peripheral artery disease PHYSICIAN ATTESTATION OF PHYSICIAN MACHINE STACKER DOCUMENTATION: I attest that I was physically present for the marks portions of the service and evaluated the patient with the Physician Fisheries Technician, and I reviewed and discussed the case with the Physician Fisheries Technician and made modifications to the Physician Fisheries Technician's findings and plans of care as documented above HANNAH MEEK Jun 17, 2024 17:02 KATJA LANDRY MD Jun 19, 2024 09:10
[2024-06-17 21:07] LABS: POTASSIUM 3.6 mmol/L (3.5-5.1)
[2024-06-17 21:21] LABS: CREATININE 8.8 mg/dL (0.5-1.3)
--- NOTE | 2024-06-17 21:35 | HMCSR ---
APPROVED REPORT EXAM: Two-dimensional and M-mode echocardiogram with Doppler and color Doppler. INDICATION ICD: R06.02 Shortness of breath 2D Dimensions RVDd5.0 cmLVEF(%)68.3 (>50%)LVED Vol(simp.)128.0 mL IVSd1.4 (0.7-1.1cm)FS(%)38 %LVES Vol(simp.)51.0 mL LVDd4.2 (3.8-5.6cm)LA (2D)4.0 (1.6-4.0cm)LVEF(%, simp.)60 % PWd1.5 (0.7-1.1cm)Ao Root(2D)4.0 (2.0-3.7cm)LA ESV INDEX (BP)37.99 mL/m2 LVDs2.6 (2.5-4.0cm)LVOT diam2.3 (1.8-2.4cm) IVC diam2.1 cm Deformation Strain Apical 4-19.0 % Apical 2-15.0 % Apical 3-16.0 % Global Strain-17.0 % M-Mode Dimensions EPSS1.1 cm LA (MM)4.0 (1.6-4.0cm) Ao Root(MM)3.0 (2.0-3.7cm) Aortic Valve AoV Vmax2.5 m/Asia Peak GR24.7 mmHgLVOT Vmax1.5 m/s AoV VTI0.4 mAo Mean GR15.1 mmHgLVOT VTI0.29 m DEBORA (VMAX)2.9 cm2AVA (VTI) 2.9 cm2 Mitral Valve MV E Unfu345.9 cm/sDECEL Lejn074 ms MV A Nufj582.2 cm/sP 1/2 T58 ms E/A ratio1.1MVA (PHT)3.8 cm2 TDI E/E' Irdyhc84.1E/E' Ypfvxzw16.5 Medial E' Peak V9.00 cm/sLateral E' Peak V10.00 cm/s Pulmonary Valve PV Vmax1.3 m/s Tricuspid Valve TR Vmax2.7 m/sRAP (EST) 3 gmYgWOCG62.3 mmHg TR Peak GR29.3 mmHg Left Ventricle The left ventricle is normal size. GS -17%. Hyoerdynamic LV with normal LV segmental wall motion. Mod erate concentric left ventricular hypertrophy. LVEF is 60-65%. Grade 2 diastolic dysfunction. Right Ventricle The right ventricle is moderately dilated, measuring 5.0 cm. The right ventricular systolic function is normal. Atria The left atrium is mildly dilated with an LA ESV index of 38 mL/m�. The right atrium is moderately di lated. Aortic Valve Aortic valve is trileaflet, with mild sclerosis of the left coronary cusp. The aortic valve is seen t o open near normally. No aortic regurgitation is present. There is no aortic valvular stenosis. Mitral Valve Mitral valve leaflets open well. Posterior annular and leaflet calcification noted. There is no cameron l valve regurgitation noted. There is no mitral valve stenosis. Tricuspid Valve The tricuspid valve is normal in structure. There is trace of tricuspid valve regurgitation noted. Pulmonic Valve The pulmonary valve is normal in structure. There is no pulmonic valvular regurgitation. Great Vessels The aortic root is normal in size. The IVC is normal in size and collapses >50% with inspiration. Pericardium There is no pericardial effusion. Other Information Quality : Adequate Conclusion The left ventricle is normal size. Moderate concentric left ventricular hypertrophy. GS -17%. Hyoerdynamic LV with normal LV segmental wall motion. LVEF is 60-65%. Grade 2 diastolic dysfunction. Aortic valve is trileaflet, with mild sclerosis of the left coronary cusp. The aortic valve is seen to open near normally. There is no aortic valvular stenosis. Mitral valve leaflets open well. Posterior annular and leaflet calcification noted. There is no mitral valve stenosis. There is no mitral valve regurgitation noted. There is no pericardial effusion.
[2024-06-17] MEDS: MICAFUNGIN 100MG+NS 100ML 100 ML IV SCH (23:30)
[2024-06-17] MEDS: PHARMACY COMMUNICATION MISC SCH (23:31)
[2024-06-18] VITALS (99 sets, daily range): BP systolic 90–169; BP diastolic 40–103; PULSE 88–104; RESP 13–47; TEMP 98.3–99; O2SAT 91–99
[2024-06-18] MEDS: CEFEPIME HCL IVPB SCH (04:28)
[2024-06-18] MEDS: [UNRECOGNIZED DRUG - OTHER] IVPB SCH (04:28)
[2024-06-18 05:12] LABS: BASOPHILS # (AUTO) 0.04 K/uL (0.00-0.20); BASOPHILS % (AUTO) 0.2 % (0.0-5.0); EOSINOPHILS # (AUTO) 0.07 K/uL (0.00-0.70); EOSINOPHILS % (AUTO) 0.4 % (0.0-8.0); HEMATOCRIT 23.7 % (42-54); IMMATURE GRANULOCYTE ABSOLUTE 0.16 K/uL (0-1); LYMPHOCYTES # (AUTO) 0.5 K/uL (1.0-4.8); LYMPHOCYTES % (AUTO) 3.3 % (21.0-51.0); MEAN CORPUSCULAR HEMOGLOBIN 31.1 pg (27.0-33.0); MEAN CORPUSCULAR HGB CONC 34.6 g/dL (32.0-36.0); MEAN CORPUSCULAR VOLUME 89.8 fL (79-99); MONOCYTES # (AUTO) 1.5 K/uL (0.1-1.0); MONOCYTES % (AUTO) 8.9 % (3.0-13.0); NEUTROPHILS # (AUTO) 14.2 K/uL (1.8-7.7); NEUTROPHILS % (AUTO) 86.2 % (40.0-77.0); PLATELET COUNT (AUTO) 27 K/uL (130-400); RED BLOOD CELL COUNT(AUTO) 2.64 MIL/uL (4.50-6.20); RED CELL DISTRIBUTION WIDTH 15.2 % (11.0-15.5); WHITE BLOOD COUNT (AUTO) 16.4 K/uL (4.8-10.8)
[2024-06-18 05:30] LABS: ALBUMIN 2.3 g/dL (3.5-5.0); BILIRUBIN,TOTAL 0.5 mg/dL (0.2-1.0); MAGNESIUM 1.9 mg/dL (1.80-2.40); PHOSPHORUS 6.7 mg/dL (2.5-4.9); POTASSIUM 3.7 mmol/L (3.5-5.1); TOTAL PROTEIN, SERUM 5.9 g/dL (6.0-8.3)
[2024-06-18 05:35] LABS: CREATININE 10.2 mg/dL (0.5-1.3)
[2024-06-18] MEDS: SODIUM BICARB 8.4% 50ML SYRING 150 MEQ in DEXTROSE 5%-WATER 1,000 ML IVP SCH (07:32)
--- NOTE | 2024-06-18 10:41 | PN ---
[facility] CARDIOLOGY PROGRESS NOTE Date Patient Seen: Jun 18, 2024 Time of Visit: 10:30 Interval History: This is a 69-year-old Latin-Guatem[place] male with a past medical history of hypertension, hyperlipidemia, type 2 diabetes mellitus, chronic kidney disease s tage IIIB with estimated GFR of 30 on 05/05/2024 (creatinine 2.3), peripheral artery disease, prior right foot 1st and 2nd ray amputation and more recent left 4th and 5th ray amputation (March 2024-[place]) with slow healing left lateral plantar ulcer, osteomyelitis of the left 4th and 5th amputation sites during that admission here 05/05/2024. He was treated with IV antibiotic therapy and was discharged to the [facility] 05/09/2024 for continued antibiotic therapy and wound care. He has been admitted with severe septic shock she was, acute on chronic renal failure with creatinine of 9.9. He has continued to require vasopressor support and sodium bicarb drip. Cardiology was consulted when he was found to have a rise in his troponin from 139 to 581. He also had severe lactic acidosis with a lactic acid level up to 9.1. In addition he had severe thrombocytopenia with a platelet count of 32, falling to 27. An EKG on admission demonstrates sinus tachycardia, left anterior fascicular block pattern and nonspecific T-wave abnormalities and a heart rate of 117 beats per minute. He remains with altered mental status this morning, remains on vasopressor support and his platelet count is currently at 27. There was no reported chest pain prior to admission or on admission. Physical Examination: HEAD: Normal with no signs of head trauma. NECK: Supple without JVD. There is no tenderness, lymphadenopathy, or masses. No thyromegaly. Normal carotid upstrokes without bruits. LUNGS: Clear breath sounds bilaterally. No wheezes, or rhonchi. HEART: Underlying tachycardia. Normal S1 and S2 without murmurs, gallop or rub. VASC: Peripheral pulses nonpalpable. ABD: Bowel sounds normal, soft, nontender, no masses, no organomegaly. No audible bruits. : Gallagher catheter in place with scant dark urine EXT: No pedal edema. There is a well-healed right 1st and 2nd ray amputation. The left 4th and 5th foot amputation has an ulcer at the base of the surgical site. There was no active drainage, no foul odor, there is surrounding erythema. SKIN: No rashes or lesions noted. NEURO: Awake, and alert but disoriented. No focal sensory moves all extremities but has generalized weakness. Laboratory: Hematology Labs: Test 06/18/24 04:50 06/17/24 01:31 06/16/24 20:31 Range/Units White Blood Count 16.4 H 4.8-10.8 K/uL Red Blood Count 2.64 L 4.50-6.20 MIL/uL Hemoglobin 8.2 L 14.0-18.0 g/dL Hematocrit 23.7 L 42-54 % Mean Corpuscular Volume 89.8 79-99 fL Mean Corpuscular Hemoglobin 31.1 27.0-33.0 pg Mean Corpuscular Hemoglobin Concent 34.6 32.0-36.0 g/dL Red Cell Distribution Width 15.2 11.0-15.5 % Platelet Count 27 L 130-400 K/uL Mean Platelet Volume 7.5-10.5 fL Immature Granulocyte % (Auto) 1.0 0-1 % Neutrophils (%) (Auto) 86.2 H 40.0-77.0 % Lymphocytes (%) (Auto) 3.3 L 21.0-51.0 % Monocytes (%) (Auto) 8.9 3.0-13.0 % Eosinophils (%) (Auto) 0.4 0.0-8.0 % Basophils (%) (Auto) 0.2 0.0-5.0 % Neutrophils # (Auto) 14.2 H 1.8-7.7 K/uL Lymphocytes # (Auto) 0.5 L 1.0-4.8 K/uL Monocytes # (Auto) 1.5 H 0.1-1.0 K/uL Eosinophils # (Auto) 0.07 0.00-0.70 K/uL Basophils # (Auto) 0.04 0.00-0.20 K/uL Absolute Immature Granulocyte (auto 0.16 0-1 K/uL Nucleated Red Blood Cells 0.0 0.0-0.19 % Erythrocyte Sedimentation Rate 45 H 0-20 MM/HR White Cell Morphology Comment See comments Platelet Morphology Comment MARKED DECREASE Red Blood Cell Morphology See comments Chemistry Labs: Test 06/18/24 04:50 06/17/24 15:37 06/17/24 13:06 06/17/24 06:05 Range/Units Sodium Level 145 136-145 mmol/L Potassium Level 3.7 3.5-5.1 mmol/L Chloride Level 101 101-111 mmol/L Carbon Dioxide Level 12 L 21-32 mmol/L Blood Urea Nitrogen 102 *H 7-18 mg/dL Creatinine 10.2 *H 0.5-1.3 mg/dL Glomerular Filtration Rate Calc 5 >90 mL/min Random Glucose 140 H 70-105 mg/dL Total Calcium 7.7 L 8.5-10.1 mg/dL Phosphorus Level 6.7 H 2.5-4.9 mg/dL Magnesium Level 1.90 1.80-2.40 mg/dL Total Bilirubin 0.5 0.2-1.0 mg/dL Aspartate Amino Transf (AST/SGOT) 32 10-37 U/L Alanine Aminotransferase (ALT/SGPT) 32 12-78 U/L Alkaline Phosphatase 96 50-136 U/L Total Protein 5.9 L 6.0-8.3 g/dL Albumin 2.3 L 3.5-5.0 g/dL Whole Blood Glucose 147 #H 70-110 MG/DL Troponin I High Sensitivity 581 *H 4-75 ng/L Lactic Acid Level 9.1 H 0.8-2.5 mmol/L Test 06/17/24 01:31 06/16/24 20:54 06/16/24 20:31 Range/Units Direct Bilirubin 0.1 0.0-0.3 mg/dL Total Creatine Kinase 82 21-232 U/L B-Type Natriuretic Peptide 630 H 0-100 pg/mL Triglycerides Level 175 30-200 mg/dL Cholesterol Level 191 <200 mg/dL LDL Cholesterol 113 H 0-99 mg/dL HDL Cholesterol 44 29-71 mg/dL Procalcitonin 0.60 H 0.05-0.5 ng/mL Thyroid Stimulating Hormone (TSH) 0.67 0.36-3.74 uIU/mL Hemoglobin A1c 7.3 H 4.0-6.0 % Estimated Average Glucose (eAG) 163 H 70-126 mg/dL C-Reactive Protein, Quantitative 16.10 H 0.5-3.0 mg/L Coagulation Labs: Test 06/17/24 01:31 Range/Units Prothrombin Time 11.9 H 9.6-11.6 SEC Prothromb Time International Ratio 1.14 0.85-1.15 Activated Partial Thromboplast Time 49.8 H 26.3-35.5 SEC Diagnostics / Radiology: 2D echocardiogram 06/17/2024: The left ventricle is normal size. Moderate concentric left ventricular hypertrophy. GS -17%. Hyoerdynamic LV with normal LV segmental wall motion. LVEF is 60-65%. Grade 2 diastolic dysfunction. Aortic valve is trileaflet, with mild sclerosis of the left coronary cusp. The aortic valve is seen to open near normally. There is no aortic valvular stenosis. Mitral valve leaflets open well. Posterior annular and leaflet calcification noted. There is no mitral valve stenosis. There is no mitral valve regurgitation noted. There is no pericardial effusion. Impression and Plan: Septic shock Severe lactic acidosis with lactic acid of 9.1: -continues to require vasopressor support -management per primary and critical care team Acute on chronic renal failure with admission creatinine of 9.9 and estimated GFR of 5 (prior GFR of 30 and creatinine of 2.3 on 05/05/2024): -multifactorial including poor appetite, vomiting, and recent loose stools (per sister's report) -defer management to primary and Nephrology Type 2 IN with troponin rising to 581 in the setting of septic shock, severe lactic acidosis, acute renal failure: Normal LV systolic function with an LVEF of 60-65% and grade 2 diastolic dysfunction by 2D echocardiogram 06/17/2024: -no ischemic EKG changes on EKG and no complaints of chest pain reported -at this time he is not a candidate for antiplatelet therapy given his thrombocytopenia and he is not a candidate for beta-miguel a therapy given his hypotension/septic shock requiring vasopressor support -defer statin therapy given septic shock -cardiology will sign off but available if any acute cardiac issues arise -medical therapy would be with antiplatelet therapy and statin therapy but at this time, his severe thrombocytopenia likely related to a severe septic shock precludes antiplatelet therapy and statin therapy will be deferred Thrombocytopenia with platelet count of 28: -in the setting of septic shock -continue to trend CBC Comorbidities: Osteomyelitis of the left 4th and 5th ray amputation during admission 05/05/2024 Hypertension Hyperlipidemia Type 2 diabetes mellitus Peripheral artery disease PHYSICIAN ATTESTATION OF PHYSICIAN BOAT REPAIRER DOCUMENTATION: I attest that I was physically present for the marks portions of the service and evaluated the patient with the Physician Route Salesman, and I reviewed and discussed the case with the Physician Route Salesman and made modifications to the Physician Route Salesman's findings and plans of care as documented above HANNAH MEEK Jun 18, 2024 10:41 KATJA LANDRY MD Jun 19, 2024 09:10
[2024-06-18 11:37] LABS: ABG BASE EXCESS -8.5 mmol/L (-2.0-3.0); ABG HCO3 16.1 mmol/L (21.0-28.0); ABG OXYGEN SATURATION 91.5 % (94.0-98.0); ABG PCO2 31 mmHg (35-48); DEVICE COMMENT LR; PO2, ARTERIAL BG 64.5 mmHg (83.0-108.0); VENT MODE, BG RA (ROOM AIR)
--- NOTE | 2024-06-18 11:45 | PN ---
[facility] PROGRESS NOTE Date of Service: Jun 18, 2024 Time of Service: 11:39 SUBJECTIVE: Patient is seen and examined at bedside, case discussed with the RN, during my visit the patient resting comfortably in bed, following simple commands, he is on blood pressure support with Levophed, getting sodium bicarbonate IV. BP 108/57, heart rate of 116, saturating 99% on 2 L nasal cannula. Hemoglobin 8.4, hematocrit 27.0, WBC 14.2, platelet count of 28. Sodium 143, potassium 5.0, bicarb of five, BUN 107, creatinine 9.7. ABG with pH of 7.8, pCO2 less than 15, bicarb of 2.3. 06/18 patient has been seen and examined at bedside, case discussed with the RN, patient remains confused, still on pressor support with Levophed and Andrew- Synephrine, patient also on sodium bicarbonate drip. No family members at bedside during my visit. Blood pressure 112/44, heart rate of 91, saturating 93%. CBC with WBC of 16.4, hemoglobin 8.2, hematocrit 23.7, platelet count of 27. Sodium 145, potassium 3.7, BUN of 102, creatinine 10.2, sodium bicarb of 12. ABG with pH of 7.33, pCO2 31, PO2 64, bicarb of 16.1. Septic workup reviewed, blood cultures no growth after 24 hours. Patient getting broad- spectrum IV antibiotics during my visit. CT of the abdomen pelvis probable mild enterocolitis with mild to moderate small and large bowel liquid content, cholelithiasis, urinary wall thickening, more than expected for empty urinary bladder. Mild distal colonic diverticulosis. REVIEW OF SYSTEMS CONSTITUTIONAL: Denies fevers, chills, or night sweats. No unintentional weight loss reported. NEUROLOGICAL: Complain of generalized body weakness Denies headache, amaurosis fugax,, sensory deficit, vertigo/spinning sensation, gait abnormalities, or tremors. ENT: No hearing loss, otalgia, otorrhea, rhinitis, rhinorrhea, hoarseness, or sore throat. CARDIOVASCULAR: Denies any exertional angina, dyspnea on exertion, orthopnea, paroxysmal nocturnal dyspnea, palpitations, life-threatening arrhythmias, claudication. PULMONARY: Denies any shortness of breath, cough, phlegm/sputum, hemoptysis, pleuritic chest pain. SLEEP: Denies morning headaches, daytime somnolence or napping. Denies difficulty falling asleep, staying asleep, waking from sleep. Denies knowledge of snoring. GASTROINTESTINAL: Complain of loss of appetite Denies any type of dysphagia to either liquids or solids. Denies nausea, vomiting, pyrosis, early satiety, abdominal pain, diarrhea, constipation, or changes in stool consistency or caliber. Denies coffee-ground emesis, hematemesis, hematochezia, or melanotic stools. GENITOURINARY: Denies frequency, urgency, nocturia, hematuria or incontinence (Storage/Irritative symptoms.) Low urinary stream, straining to void, urinary intermittency or hesitancy, splitting of the voiding stream, terminal dribbling. ENDOCRINOLOGIC: Denies polyuria, polydipsia, polyphagia or heat/cold intolerances. HEMATOLOGIC: Denies thrombophilia/previous clots, or coagulopathy/bleeding disorders. ONCOLOGIC: Denies personal history of malignancy. DERMATOLOGIC: Denies rashes or pruritus. PSYCHIATRIC: Denies any suicidal or homicidal ideation. Denies hallucinations. PHYSICAL EXAM GENERAL APPEARANCE: The patient remains confused. Withdrawing to painful stimulation. NEUROLOGICAL: Cranial nerves II-XII grossly intact. Motor is 5/5 in bilateral upper and lower extremities proximal to distal. No sensory deficits. HEENT: Face is symmetric. Pupils are equal and reactive. Extraocular movements are intact. NECK: Supple. No JVD. No thyromegaly. No submental, submandibular, pre- /postauricular, occipital or supraclavicular lymphadenopathy. CHEST: Normal chest expansion. No Telemetry. LUNGS: Absence of any rales, rhonchi or any wheezing. CARDIOVASCULAR: Regular. S1 and S2 normal. No appreciable rubs, murmurs or gallops. ABDOMEN: Soft, nontender, and nondistended. There is no rebound, voluntary guarding, or rigidity. : Deferred. No Gallagher. EXTREMITIES: Non-edematous and not cyanotic. No clubbing. Good capillary refill. SKIN: No skin breakdown. Vital Signs (last 8hr) Date Time Temp Pulse Resp B/P (MAP) Pulse Ox O2 Delivery O2 Flow Rate FiO2 06/18/24 09:30 91 18 112/44 (66) 93 21 06/18/24 09:15 90 18 115/50 (71) 93 21 06/18/24 09:00 90 18 98/44 (62) 93 06/18/24 08:45 94 20 112/40 (64) 94 06/18/24 08:30 92 18 108/47 (67) 93 06/18/24 08:30 93 Room Air* 0 21 06/18/24 08:23 98.2 06/18/24 08:15 92 24 114/51 (72) 93 06/18/24 08:00 96 23 116/55 (75) 93 06/18/24 07:45 93 19 118/51 (73) 93 06/18/24 07:30 94 21 127/51 (76) 93 06/18/24 07:15 94 20 109/51 (70) 92 06/18/24 07:00 98.6 94 18 119/40 (66) 94 06/18/24 06:45 94 22 129/78 (95) 95 06/18/24 06:30 92 18 121/46 (71) 96 06/18/24 06:15 101 18 105/40 (61) 95 06/18/24 06:00 92 16 113/44 (67) 97 06/18/24 05:48 120/49 06/18/24 05:45 103 24 123/59 (80) 95 06/18/24 05:30 95 16 124/48 (73) 97 06/18/24 05:15 95 18 120/49 (72) 97 06/18/24 04:45 97 27 124/44 (70) 95 06/18/24 04:30 98 18 130/51 (77) 97 06/18/24 04:15 99 17 123/51 (75) 95 06/18/24 04:00 99.0 98 20 169/103 (125) 90 28 06/18/24 04:00 99.0 06/18/24 04:00 95 Room Air* 0 21 06/18/24 03:45 98 17 129/68 (88) 95 28 LABS: Laboratory: Test 06/18/24 11:35 06/18/24 11:26 06/18/24 04:50 06/17/24 23:00 Range/Units Blood Gas Specimen Type Arterial Arterial Blood pH 7.330 L 7.350-7.450 Arterial Blood Partial Pressure CO2 31 L 35-48 mmHg Arterial Blood Partial Pressure O2 64.5 L 83.0-108.0 mmHg Arterial Blood HCO3 16.1 L 21.0-28.0 mmol/L Arterial Blood Oxygen Saturation 91.5 L 94.0-98.0 % Arterial Blood Base Excess -8.5 L -2.0-3.0 mmol/L Blood Gas Temperature 37.0 35.5-37.0 CELSIUS Blood Gas Vent Mode RA ROOM AIR FiO2 21.0 % Blood Gas Specimen Comment LR Whole Blood Glucose 111 H 70-110 MG/DL White Blood Count 16.4 H 4.8-10.8 K/uL Red Blood Count 2.64 L 4.50-6.20 MIL/uL Hemoglobin 8.2 L 14.0-18.0 g/dL Hematocrit 23.7 L 42-54 % Mean Corpuscular Volume 89.8 79-99 fL Mean Corpuscular Hemoglobin 31.1 27.0-33.0 pg Mean Corpuscular Hemoglobin Concent 34.6 32.0-36.0 g/dL Red Cell Distribution Width 15.2 11.0-15.5 % Platelet Count 27 L 130-400 K/uL Mean Platelet Volume 7.5-10.5 fL Immature Granulocyte % (Auto) 1.0 0-1 % Neutrophils (%) (Auto) 86.2 H 40.0-77.0 % Lymphocytes (%) (Auto) 3.3 L 21.0-51.0 % Monocytes (%) (Auto) 8.9 3.0-13.0 % Eosinophils (%) (Auto) 0.4 0.0-8.0 % Basophils (%) (Auto) 0.2 0.0-5.0 % Neutrophils # (Auto) 14.2 H 1.8-7.7 K/uL Lymphocytes # (Auto) 0.5 L 1.0-4.8 K/uL Monocytes # (Auto) 1.5 H 0.1-1.0 K/uL Eosinophils # (Auto) 0.07 0.00-0.70 K/uL Basophils # (Auto) 0.04 0.00-0.20 K/uL Absolute Immature Granulocyte (auto 0.16 0-1 K/uL Nucleated Red Blood Cells 0.0 0.0-0.19 % Sodium Level 145 136-145 mmol/L Potassium Level 3.7 3.5-5.1 mmol/L Chloride Level 101 101-111 mmol/L Carbon Dioxide Level 12 L 21-32 mmol/L Blood Urea Nitrogen 102 *H 7-18 mg/dL Creatinine 10.2 *H 0.5-1.3 mg/dL Glomerular Filtration Rate Calc 5 >90 mL/min Random Glucose 140 H 70-105 mg/dL Total Calcium 7.7 L 8.5-10.1 mg/dL Phosphorus Level 6.7 H 2.5-4.9 mg/dL Magnesium Level 1.90 1.80-2.40 mg/dL Total Bilirubin 0.5 0.2-1.0 mg/dL Aspartate Amino Transf (AST/SGOT) 32 10-37 U/L Alanine Aminotransferase (ALT/SGPT) 32 12-78 U/L Alkaline Phosphatase 96 50-136 U/L Total Protein 5.9 L 6.0-8.3 g/dL Albumin 2.3 L 3.5-5.0 g/dL Stool Occult Blood POSITIVE H NEGATIVE Test 06/17/24 13:06 06/17/24 07:00 06/17/24 06:05 06/17/24 04:28 Range/Units Troponin I High Sensitivity 581 *H 4-75 ng/L Hemoglobin (Blood Gas) 9.7 L 13.5-17.5 g/dL Sodium (Blood Gas) 137 136-145 MMOL/L Bedside Potassium (Blood Gas) 4.8 H 3.4-4.5 MMOL/L Bedside Chloride (Blood Gas) 109 H 98-107 MMOL/L Bedside Glucose (Blood Gas) 139 H 65-95 MG/DL Bedside Ionized Calcium (Blood Gas) 1.24 1.15-1.33 MMOL/L Bedside Lactic Acid (Blood Gas) 9.70 *H 0.36-0.75 MMOL/L Lactic Acid Level 9.1 H 0.8-2.5 mmol/L Blood Gas Flow-by 3.00 0.00-15.00 L/min Test 06/17/24 01:31 06/16/24 23:49 06/16/24 22:12 06/16/24 20:54 Range/Units Erythrocyte Sedimentation Rate 45 H 0-20 MM/HR Prothrombin Time 11.9 H 9.6-11.6 SEC Prothromb Time International Ratio 1.14 0.85-1.15 Activated Partial Thromboplast Time 49.8 H 26.3-35.5 SEC Direct Bilirubin 0.1 0.0-0.3 mg/dL Total Creatine Kinase 82 21-232 U/L B-Type Natriuretic Peptide 630 H 0-100 pg/mL Triglycerides Level 175 30-200 mg/dL Cholesterol Level 191 <200 mg/dL LDL Cholesterol 113 H 0-99 mg/dL HDL Cholesterol 44 29-71 mg/dL Procalcitonin 0.60 H 0.05-0.5 ng/mL Thyroid Stimulating Hormone (TSH) 0.67 0.36-3.74 uIU/mL Urine Color LIGHT-YELLOW YELLOW Urine Appearance CLEAR CLEAR Urine pH 5.5 5.0-8.0 Urine Specific [place] 1.015 1.001-1.031 Urine Protein 200 H NEGATIVE mg/dL Urine Glucose (UA) NEGATIVE NEGATIVE mg/dL Urine Ketones 10 H NEGATIVE mg/dL Urine Occult Blood SMALL H NEGATIVE Urine Nitrate NEGATIVE NEGATIVE Urine Bilirubin NEGATIVE NEGATIVE mg/dL Urine Urobilinogen 0.2 0.2-1.0 mg/dL Urine Leukocyte Esterase NEGATIVE NEGATIVE Ronaldo/uL Urine RBC 0-1 0-1 /HPF Urine WBC 2-5 H 0-1 /HPF Urine Squamous Epithelial Cells RARE 0-2 /HPF Urine Bacteria RARE None Seen /HPF Urine Random Creatinine 178.56 H 30-135 mg/dL Urine Random Sodium 49 40-220 mmol/l Urine Random Potassium 29 25-125 mmol/L Urine Random Chloride 67 L 110-250 mmol/L Influenza Type A Antigen Negative For Type A NEGATIVE Influenza Type B Antigen Negative For Type B NEGATIVE SARS-CoV-2 Antigen (Rapid) PRESUMPTIVE NEGATIVE NEGATIVE Group A Streptococcus Rapid negative NEGATIVE Hemoglobin A1c 7.3 H 4.0-6.0 % Estimated Average Glucose (eAG) 163 H 70-126 mg/dL Test 06/16/24 20:31 06/16/24 17:00 Range/Units White Cell Morphology Comment See comments Platelet Morphology Comment MARKED DECREASE Red Blood Cell Morphology See comments C-Reactive Protein, Quantitative 16.10 H 0.5-3.0 mg/L Urine Osmolality 323 50-1200 mOsm/kg Current Medications Medications (Trade) Dose Ordered Sig/Roderick Route PRN Reason Start Time Stop Time Status Last Admin Dose Admin Albuterol Sulfate (Proventil 0.083% 2.5mg/3ml) 10 mg ONCE STAT IH 06/17/24 04:05 06/17/24 04:12 DC 06/17/24 04:31 10 MG Calcium Gluconate (Calcium Gluc 1gm Vial) 1 gm AD STAT IV 06/17/24 04:05 06/17/24 04:12 DC 06/17/24 04:21 1 GM Cefepime HCl (MAXipime 1 GM vial) 0.25 gm Q24H IVPB 06/17/24 04:00 06/18/24 04:06 DC 06/17/24 04:58 0.25 GM Cefepime HCl 0.25 gm/Sodium Chloride 50 ml @ 100 mls/hr Q24H IVPB 06/18/24 04:30 06/28/24 04:29 06/18/24 04:28 100 MLS/HR Dextrose (D50w) 50 ml AD PRN IV HYPOGLYCEMIA PROTOCOL 06/17/24 01:00 06/17/24 01:01 DC Dextrose (D50w) 50 ml AD PRN IV HYPOGLYCEMIA PROTOCOL 06/17/24 01:00 07/17/24 00:59 Dextrose (D50w) 50 ml ONCE STAT IV 06/17/24 04:05 06/17/24 04:12 DC 06/17/24 04:21 50 ML Famotidine (Pepcid 20mg Vial) 20 mg Q48H IV 06/17/24 01:00 07/17/24 00:59 06/17/24 02:54 20 MG Glucagon (Glucagon 1mg Kit) 1 mg AD PRN IM HYPOGLYCEMIA PROTOCOL 06/17/24 01:00 06/17/24 01:01 DC Glucagon (Glucagon 1mg Kit) 1 mg AD PRN IM HYPOGLYCEMIA PROTOCOL 06/17/24 01:00 07/17/24 00:59 Hydrocortisone Sodium Succinate (Solu-corTEF 100MG) 50 mg Q8H IV 06/18/24 11:30 07/18/24 11:29 Insulin Human Regular (humuLIN R 100 UNIT/ML 3ML) 10 unit ONCE STAT IV 06/17/24 04:05 06/17/24 04:12 DC 06/17/24 04:28 10 UNIT Insulin Human Regular (humuLIN R 100 UNIT/ML 3ML) INSULIN SLIDING SCAL... ACHS SQ 06/17/24 07:30 07/17/24 07:29 Metronidazole/ Sodium Chloride (flaGYL) 500 mg Q8H IV 06/17/24 05:00 06/27/24 04:59 06/18/24 05:46 500 MG Micafungin Sodium 100 ml @ 100 mls/hr Q24H IV 06/18/24 00:00 07/18/24 00:00 06/17/24 23:30 100 MLS/HR Norepinephrine 250 ml @ 0 mls/hr PROTOCOL IV 06/16/24 22:00 07/16/24 21:59 06/17/24 05:33 24.5 MLS/HR Pharmacy Profile Note (Pharmacy Communication) 1 each ONCE MISC 06/17/24 23:00 06/24/24 22:59 06/17/24 23:31 1 EACH Phenylephrine HCl 100 mg/Sodium Chloride 250 ml @ 0 mls/hr AD PRN IV TITRATE 06/17/24 10:30 07/17/24 10:29 06/18/24 05:48 27 MLS/HR Piperacillin Sod/ Tazobactam Sod (Zosyn 3.375gm+NS 50ml) 3.375 gm Q12H IV 06/16/24 21:30 06/17/24 01:03 DC 06/16/24 21:42 3.375 GM Piperacillin Sod/ Tazobactam Sod (Zosyn 3.375gm+NS 50ml) 3.375 gm Q12H IVPB 06/17/24 01:00 06/17/24 04:00 DC 06/17/24 02:54 3.375 GM Sodium Bicarbonate / Dextrose 1,000 ml @ 0 mls/hr Q0M IVP 06/17/24 05:00 06/17/24 04:58 DC Sodium Bicarbonate 150 meq/Dextrose 1,150 ml @ 100 mls/hr [id number] IVP 06/17/24 05:00 06/18/24 04:44 DC 06/17/24 21:00 100 MLS/HR Sodium Bicarbonate 150 meq/Dextrose 1,150 ml @ 100 mls/hr [id number] IVP 06/18/24 08:00 07/18/24 07:59 06/18/24 07:32 100 MLS/HR Sodium Polystyrene Sulfonate (kayEXALate 15 GM/60 ML) 15 gm Q2H PO 06/16/24 21:30 06/16/24 23:31 DC 06/16/24 22:21 15 GM Sodium Chloride 1,000 ml @ 150 mls/hr Q6H40M IV 06/16/24 23:00 06/17/24 09:10 DC 06/17/24 05:15 150 MLS/HR Sodium Chloride (NS 50ml) 50 ml AD IV 06/17/24 01:00 06/17/24 01:05 DC Thiamine HCl (Vitamin B-1) 100 mg DAILY IVP 06/17/24 09:00 07/17/24 08:59 06/18/24 09:23 100 MG Vancomycin HCl (Vancomycin 750mg) 750 mg Q96H IVPB 06/20/24 22:00 06/17/24 14:00 DC Vancomycin HCl (Vancomycin Protocol) 1 each AD IV 06/17/24 01:30 06/17/24 14:01 DC DIAGNOSTICS / RADIOLOGY: [ ] T ABDOMEN WITHOUT CONTRAST. CT PELVIS WITHOUT CONTRAST. INDICATION: Renal failure TECHNIQUE: Routine transaxial imaging using 5 mm slice thickness through the abdomen and pelvis without the administration of IV contrast. Thin slice reconstructions are also provided. Coronal and sagittal reformatted images acquired for interpretation. CT was performed with one or more of the following dose reduction techniques: Automated exposure control, adjustment of the mA and/or kV according to patient size, or use of iterative reconstruction technique. COMPARISON: None FINDINGS: Diagnostic sensitivity of this examination is limited by patient motion artifact. ON NONCONTRAST IMAGING: ABDOMEN: Heart size is normal. Mitral annular calcific plaque. Visible lung bases are clear. No abnormal renal calcifications, hydronephrosis, perinephric inflammation, or proximal hydroureter detected. The liver is normal in size and smooth in contour without biliary duct dilation. The spleen is normal in size and attenuation. Several miniscule calcifications within the gallbladder lumen. The pancreas appears normal without pancreatic duct dilation. The adrenal glands appear normal. No significant abdominal, retrocrural or retroperitoneal adenopathy noted. No evidence for intra-abdominal free air or organized fluid collection. Mild calcific plaque is noted along the abdominal aortic and iliac vessel rosales without aneurysmal dilation. PELVIS: Gallagher catheter within the nearly empty urinary bladder. Urinary bladder wall thickening is more than expected for empty urinary bladder. No evidence for free air or organized pelvic fluid collection. No significant pelvic adenopathy detected. Mild to moderate small and large bowel liquid contents. A few diverticula along the distal colon. Terminal ileum appears unremarkable. The appendix appears normal. Mild thoracolumbar spondylosis. IMPRESSION: 1. Probable mild enterocolitis with mild to moderate small and large bowel liquid contents. 2. Cholelithiasis. 3. Urinary bladder wall thickening, more than expected for empty urinary bladder. Correlation with urine studies is recommended. 4. Mild distal colonic diverticulosis. 5. Arteriosclerotic disease as described. 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 Continue the patient on sodium bicarbonate drip Continue to follow Nephrology input recommendation in terms of renal replacement therapy Follow critical care input and recommendation NEURO: Minimize central acting medications as possible. Fall Precautions. Well lighted room through the day and minimize interruptions through the night to prevent acute delirium. PULMONARY: Supplemental 02 as needed BiPAP as necessary, for respiratory distress Titrate Fio2 to keep Spo2 > or = 90% DuoNeb�s and CPT as needed IS hourly while awake for pulmonary hygiene prn Out of bed to chair as tolerated Maintain aspiration precautions at all times CARDIOVASCULAR: Follow hemodynamics. Vital signs per facility protocol GI & NUTRITION: Continue nutritional support Aspirations precautions Prokinetic agents and laxatives as needed KIDNEYS & ELECTROLYTES: Strict monitoring of intake and output Daily weights Avoid nephrotoxic agents Monitor electrolytes and replace as needed Goal urine output of 30mL/hr or 0.5mL/kg/hr Medications to be dosed according to renal function. Avoid contrast if possible ENDOCRINE: Maintain blood glucose between 100-180 at all times. Insulin sliding scale for blood glucose management Hypoglycemia and hyperglycemia protocol in place INFECTIOUS DISEASE: Trend temperature, WBC and procalcitonin level Follow cultures, deescalate antibiotics as soon as possible. Panculture if new onset fever HEMATOLOGY & COAGULATION: Monitor H&H. Keep Hgb > 7 Transfuse 1 unit of PRBC for Hgb < 7 Transfuse 1 pack of platelets of platelets < 20, 000 Watch for any signs and symptoms of bleeding SKIN: Pressure ulcer prevention per facility protocol Specialty mattress as needed ORTHO/REHAB Continue PT/OT PRN: MEDICATIONS Tylenol 650 mg po every 4 hrs for fever zofran 4 mg IV every 6 hrs for n/v Hydralazine 5 mg IV every 4 hrs systolic pressure > 160 bowel regiment: lactulose 20 gm PO BID PRN constipation Supportive measures: Continue GI and DVT prophylaxis Disposition: Pending improvement in clinical condition All questions answered time spent: > 35 min CHRIS MARKS MD Jun 18, 2024 11:45
[2024-06-18] MEDS: hydroCORTisone SOD SUCCINATE 100 MG/2 ML VIAL IV SCH (12:58)
--- NOTE | 2024-06-18 13:10 | PN ---
NEPHROLOGY PROGRESS NOTE Date/Time Patient Seen: Jun 18, 2024 SUBJECTIVE: This is a 69-year-old male with a past medical history of peripheral artery disease with osteomyelitis S/p left 4th and 5th toe and right 3rd toe amputation, anemia, chronic pain, diabetes mellitus type 2, hypertension, hyperlipidemia, chronic kidney disease, recent COVID-19 infection. He presented to the emergency room via EMS from [facility] with complaints of low platelets, poor appetite and generalized weakness. Influenza and COVID swabs were negative CT of the abdomen showed mild enterocolitis with mild to moderate small and large bowel liquid contents. He was admitted to the ICU for further medical management of septic shock He continues to require vasopressors to maintain blood pressure. Continues with a severe lactic acidosis. Blood cultures were positive for budding yeast He continues on antibiotics He continues with altered mental status In the emergency room he was noted to have elevated BUN/creatinine and hyperkalemia. Renal function continues to worsen Electrolytes are stable. Continues to decreased urine output Renal ultrasound was noted He was seen in the ICU No Family at the bedside Condition remains critical and guarded REVIEW OF SYSTEMS: Unable to obtain due to patient's status PHYSICAL EXAM: GENERAL: Lethargic. No acute distress. Well-nourished. EYES: EOMI. Anicteric. HENT: Moist mucous membranes. No scleral icterus. No cervical lymphadenopathy. LUNGS: Clear to auscultation bilaterally. No accessory muscle use. CARDIOVASCULAR: Regular rate and rhythm. No murmur. No JVD. ABDOMEN: Soft, non-tender and non-distended. No palpable masses. EXTREMITIES: No edema. Non-tender. SKIN: No rashes or lesions. Warm. NEUROLOGIC: No focal neurological deficits. CN II-XII grossly intact, but not individually tested. PSYCHIATRIC: Cooperative. Appropriate mood and affect. LABORATORY: [ ] Hematology Labs: Test 06/18/24 04:50 06/17/24 01:31 06/16/24 20:31 Range/Units White Blood Count 16.4 H 4.8-10.8 K/uL Red Blood Count 2.64 L 4.50-6.20 MIL/uL Hemoglobin 8.2 L 14.0-18.0 g/dL Hematocrit 23.7 L 42-54 % Mean Corpuscular Volume 89.8 79-99 fL Mean Corpuscular Hemoglobin 31.1 27.0-33.0 pg Mean Corpuscular Hemoglobin Concent 34.6 32.0-36.0 g/dL Red Cell Distribution Width 15.2 11.0-15.5 % Platelet Count 27 L 130-400 K/uL Mean Platelet Volume 7.5-10.5 fL Immature Granulocyte % (Auto) 1.0 0-1 % Neutrophils (%) (Auto) 86.2 H 40.0-77.0 % Lymphocytes (%) (Auto) 3.3 L 21.0-51.0 % Monocytes (%) (Auto) 8.9 3.0-13.0 % Eosinophils (%) (Auto) 0.4 0.0-8.0 % Basophils (%) (Auto) 0.2 0.0-5.0 % Neutrophils # (Auto) 14.2 H 1.8-7.7 K/uL Lymphocytes # (Auto) 0.5 L 1.0-4.8 K/uL Monocytes # (Auto) 1.5 H 0.1-1.0 K/uL Eosinophils # (Auto) 0.07 0.00-0.70 K/uL Basophils # (Auto) 0.04 0.00-0.20 K/uL Absolute Immature Granulocyte (auto 0.16 0-1 K/uL Nucleated Red Blood Cells 0.0 0.0-0.19 % Erythrocyte Sedimentation Rate 45 H 0-20 MM/HR White Cell Morphology Comment See comments Platelet Morphology Comment MARKED DECREASE Red Blood Cell Morphology See comments Chemistry Labs: Test 06/18/24 11:26 06/18/24 04:50 06/17/24 13:06 06/17/24 06:05 Range/Units Whole Blood Glucose 111 H 70-110 MG/DL Sodium Level 145 136-145 mmol/L Potassium Level 3.7 3.5-5.1 mmol/L Chloride Level 101 101-111 mmol/L Carbon Dioxide Level 12 L 21-32 mmol/L Blood Urea Nitrogen 102 *H 7-18 mg/dL Creatinine 10.2 *H 0.5-1.3 mg/dL Glomerular Filtration Rate Calc 5 >90 mL/min Random Glucose 140 H 70-105 mg/dL Total Calcium 7.7 L 8.5-10.1 mg/dL Phosphorus Level 6.7 H 2.5-4.9 mg/dL Magnesium Level 1.90 1.80-2.40 mg/dL Total Bilirubin 0.5 0.2-1.0 mg/dL Aspartate Amino Transf (AST/SGOT) 32 10-37 U/L Alanine Aminotransferase (ALT/SGPT) 32 12-78 U/L Alkaline Phosphatase 96 50-136 U/L Total Protein 5.9 L 6.0-8.3 g/dL Albumin 2.3 L 3.5-5.0 g/dL Troponin I High Sensitivity 581 *H 4-75 ng/L Lactic Acid Level 9.1 H 0.8-2.5 mmol/L Test 06/17/24 01:31 06/16/24 20:54 06/16/24 20:31 Range/Units Direct Bilirubin 0.1 0.0-0.3 mg/dL Total Creatine Kinase 82 21-232 U/L B-Type Natriuretic Peptide 630 H 0-100 pg/mL Triglycerides Level 175 30-200 mg/dL Cholesterol Level 191 <200 mg/dL LDL Cholesterol 113 H 0-99 mg/dL HDL Cholesterol 44 29-71 mg/dL Procalcitonin 0.60 H 0.05-0.5 ng/mL Thyroid Stimulating Hormone (TSH) 0.67 0.36-3.74 uIU/mL Hemoglobin A1c 7.3 H 4.0-6.0 % Estimated Average Glucose (eAG) 163 H 70-126 mg/dL C-Reactive Protein, Quantitative 16.10 H 0.5-3.0 mg/L Coagulation Labs: Test 06/17/24 01:31 Range/Units Prothrombin Time 11.9 H 9.6-11.6 SEC Prothromb Time International Ratio 1.14 0.85-1.15 Activated Partial Thromboplast Time 49.8 H 26.3-35.5 SEC DIAGNOSTICS / RADIOLOGY: REASON: sob ORDERING PHYSICIAN: LILIAM LACY PROCEDURE: ECHO CMP - ECHO 2-D COMPLETE APPROVED REPORT EXAM: Two-dimensional and M-mode echocardiogram with Doppler and color Doppler. INDICATION ICD: R06.02 Shortness of breath 2D Dimensions RVDd 5.0 cm LVEF(%) 68.3 (>50%) LVED Vol(simp.) 128.0 mL IVSd 1.4 (0.7-1.1cm) FS(%) 38 % LVES Vol(simp.) 51.0 mL LVDd 4.2 (3.8-5.6cm) LA (2D) 4.0 (1.6-4.0cm) LVEF(%, simp.) 60 % PWd 1.5 (0.7-1.1cm) Ao Root(2D) 4.0 (2.0-3.7cm) LA ESV INDEX (BP) 37.99 mL/m2 LVDs 2.6 (2.5-4.0cm) LVOT diam 2.3 (1.8-2.4cm) IVC diam 2.1 cm Deformation Strain Apical 4 -19.0 % Apical 2 -15.0 % Apical 3 -16.0 % Global Strain -17.0 % M-Mode Dimensions EPSS 1.1 cm LA (MM) 4.0 (1.6-4.0cm) Ao Root(MM) 3.0 (2.0-3.7cm) Aortic Valve AoV Vmax 2.5 m/s Ao Peak GR 24.7 mmHg LVOT Vmax 1.5 m/s AoV VTI 0.4 m Ao Mean GR 15.1 mmHg LVOT VTI 0.29 m DEBORA (VMAX) 2.9 cm2 DEBORA (VTI) 2.9 cm2 Mitral Valve MV E Vmax 144.9 cm/s DECEL Time 175 ms MV A Vmax 128.2 cm/s P 1/2 T 58 ms E/A ratio 1.1 MVA (PHT) 3.8 cm2 TDI E/E' Medial 16.1 E/E' Lateral 14.5 Medial E' Peak V 9.00 cm/s Lateral E' Peak V 10.00 cm/s Pulmonary Valve PV Vmax 1.3 m/s Tricuspid Valve TR Vmax 2.7 m/s RAP (EST) 3 mmHg RVSP 32.3 mmHg TR Peak GR 29.3 mmHg Left Ventricle The left ventricle is normal size. GS -17%. Hyoerdynamic LV with normal LV segmental wall motion. Moderate concentric left ventricular hypertrophy. LVEF is 60-65%. Grade 2 diastolic dysfunction. Right Ventricle The right ventricle is moderately dilated, measuring 5.0 cm. The right ventricular systolic function is normal. Atria The left atrium is mildly dilated with an LA ESV index of 38 mL/m�. The right atrium is moderately dilated. Aortic Valve Aortic valve is trileaflet, with mild sclerosis of the left coronary cusp. The aortic valve is seen to open near normally. No aortic regurgitation is present. There is no aortic valvular stenosis. Mitral Valve Mitral valve leaflets open well. Posterior annular and leaflet calcification noted. There is no mitral valve regurgitation noted. There is no mitral valve stenosis. Tricuspid Valve The tricuspid valve is normal in structure. There is trace of tricuspid valve regurgitation noted. Pulmonic Valve The pulmonary valve is normal in structure. There is no pulmonic valvular regurgitation. Great Vessels The aortic root is normal in size. The IVC is normal in size and collapses >50% with inspiration. Pericardium There is no pericardial effusion. Other Information Quality : Adequate Conclusion The left ventricle is normal size. Moderate concentric left ventricular hypertrophy. GS -17%. Hyoerdynamic LV with normal LV segmental wall motion. LVEF is 60-65%. Grade 2 diastolic dysfunction. Aortic valve is trileaflet, with mild sclerosis of the left coronary cusp. The aortic valve is seen to open near normally. There is no aortic valvular stenosis. Mitral valve leaflets open well. Posterior annular and leaflet calcification noted. There is no mitral valve stenosis. There is no mitral valve regurgitation noted. There is no pericardial effusion. DICTATED BY: KATJA LANDRY MD DATE: 06/17/24846 REASON: RENAL FAILURE ORDERING PHYSICIAN: EUSEBIO POWELL PROCEDURE: ABD PEL WO - CT ABDOMEN/PELVIS W/O CONTRAST CT ABDOMEN WITHOUT CONTRAST. CT PELVIS WITHOUT CONTRAST. INDICATION: Renal failure TECHNIQUE: Routine transaxial imaging using 5 mm slice thickness through the abdomen and pelvis without the administration of IV contrast. Thin slice reconstructions are also provided. Coronal and sagittal reformatted images acquired for interpretation. CT was performed with one or more of the following dose reduction techniques: Automated exposure control, adjustment of the mA and/or kV according to patient size, or use of iterative reconstruction technique. COMPARISON: None FINDINGS: Diagnostic sensitivity of this examination is limited by patient motion artifact. ON NONCONTRAST IMAGING: ABDOMEN: Heart size is normal. Mitral annular calcific plaque. Visible lung bases are clear. No abnormal renal calcifications, hydronephrosis, perinephric inflammation, or proximal hydroureter detected. The liver is normal in size and smooth in contour without biliary duct dilation. The spleen is normal in size and attenuation. Several miniscule calcifications within the gallbladder lumen. The pancreas appears normal without pancreatic duct dilation. The adrenal glands appear normal. No significant abdominal, retrocrural or retroperitoneal adenopathy noted. No evidence for intra-abdominal free air or organized fluid collection. Mild calcific plaque is noted along the abdominal aortic and iliac vessel rosales without aneurysmal dilation. PELVIS: Gallagher catheter within the nearly empty urinary bladder. Urinary bladder wall thickening is more than expected for empty urinary bladder. No evidence for free air or organized pelvic fluid collection. No significant pelvic adenopathy detected. Mild to moderate small and large bowel liquid contents. A few diverticula along the distal colon. Terminal ileum appears unremarkable. The appendix appears normal. Mild thoracolumbar spondylosis. IMPRESSION: 1. Probable mild enterocolitis with mild to moderate small and large bowel liquid contents. 2. Cholelithiasis. 3. Urinary bladder wall thickening, more than expected for empty urinary bladder. Correlation with urine studies is recommended. 4. Mild distal colonic diverticulosis. 5. Arteriosclerotic disease as described. DICTATED BY: ROLANDO HAN MD DATE: 06/17/24 1000 REASON: NETO ORDERING PHYSICIAN: BRENDA MAI MD PROCEDURE: RENAL - US RENAL SONOGRAM ULTRASOUND RENAL COMPLETE INDICATION: NETO TECHNIQUE: Routine ultrasound of the kidneys and urinary bladder with grayscale and color Doppler imaging was performed in real-time, and subsequently made available for review. COMPARISON: No prior studies available for comparison. FINDINGS: The right kidney measures 9.7 x 4.9 x 4.6 cm. No abnormal mass demonstrated. No evidence for hydronephrosis or shadowing stone. The left kidney measures 10.1 x 5.5 x 4.8 cm. No abnormal mass demonstrated. No evidence for hydronephrosis or shadowing stone. Urinary bladder wall thickness measures 4.0 mm, but exaggerated due to incomplete distention. No free fluid demonstrated. IMPRESSION: Normal sonographic appearance of the kidneys and urinary bladder. DICTATED BY: ROLANDO HAN MD DATE: 06/17/24 0949 REASON: cp ORDERING PHYSICIAN: MARY CARR MD PROCEDURE: CXR1VW - CHEST 1VW PORTABLE CHEST RADIOGRAPH INDICATION: cp COMPARISON: 05/06/2024 FINDINGS: email campaign manager leads overlie the field of view. Tip of right PICC within the SVC. Heart size is normal. Mild calcific plaque is present along the aortic arch rosales. The pulmonary vascularity and mauricio appear normal. No abnormal pulmonary parenchymal opacity or consolidation identified. No significant pleural effusion noted. No pneumothorax detected. IMPRESSION: No radiographic evidence for any acute cardiopulmonary process. DICTATED BY: ROLANDO HAN MD DATE: 06/16/242153 ASSESSMENT: Acute on chronic renal failure Severe Lactic acidosis Metabolic acidosis Hyperkalemia Septic shock, requiring vasopressor Acute encephalopathy Thrombocytopenia NSTEMI, rule-out demand ischemia vs true cardiac etiology Failure to thrive History of osteomyelitis with recent amputation Elevated troponin Elevated BNP Diabetes mellitus type 2 Hypertension Hyperlipidemia Peripheral artery disease PLAN: Labs, diagnostic, radiologic exams reviewed and interpreted by myself and supervising physician. We have reviewed external records in detail From a renal standpoint, the function continues to decline and electrolytes remain unbalanced. The patient has remained hemodynamically stable and therefore we will recommend dialysis intervention to correct electrolytes as well as BUN and Creatinine. Risk and complications of renal replacement therapy, vascular access, and modalities were explained in great detail to the family If they agree, catheter to be place by critical care team and dialysis to start tomorrow. Require close monitoring of renal function and electrolytes Order CBC, CMP, PT/PTT and electrolytes in am Follow up culture results BiPAP as necessary, for respiratory distress Continue with IV pressors as needed Monitor blood pressure adjust medication doses as needed Avoid hypotensive episodes May use Dilaudid 0.5 mg IV every 6 hours as needed for severe pain Monitor blood sugars Strict intake, output, and daily weight should be monitored Please renally adjust medications Avoid nephrotoxic and nonsteroidal drugs Avoid contrast if possible Will continue to monitor renal function, anemia, electrolytes Treatment plan discussed with patient Questions were answered We have discussed with the other team physicians in detail about the care plan We will continue to monitor the patient closely Total critical care time spent with patient, nursing staff, critical care team over 35 minutes ATTESTATION BY PHYSICIAN I have seen and examined the patient. I reviewed the documentation, medical decision making, and treatment plan as noted by the mid-level provider above. I agree with the findings and plan of care. BRENDA MAI MD, ELIZABETH FNP Jun 18, 2024 13:10 BRENDA MAI MD Jun 18, 2024 20:07
[2024-06-18 13:15] LABS: CREATININE 10.2 mg/dL (0.5-1.3)
[2024-06-18] MEDS ORDERED: COMPOUND IV MISC 1 EACH IVSOLN MISC PRN (14:00)
--- NOTE | 2024-06-18 15:29 | NUR ---
[facility] Consult: Patient assessed by wound healing team. See wound assessment. Assessment and recommendations provided to primary nurse. Education provided. Wound care done. Addendum: 06/19/24 at 0908 by MATT PEREZ RN RN/ Amended: Links added.
--- NOTE | 2024-06-18 20:37 | PN ---
[facility] PROGRESS NOTE Date Patient Seen: Jun 18, 2024 Time of Visit: 20:35 Supervising Physician: Dr. Arpit Stanford Primary Care Physician: [None-recently relocated from [place]] Outpatient Specialists: [ ] Inpatient Consults: [facility] team, nephro: Dr. Dowd, cardio: Dr. Bae] PROBLEM LIST: Septic shock, requiring pressor-POA Acute encephalopathy; likely multifactorial infectious, uremic and toxic metabolic-POA Severe metabolic acidosis-POA Acute renal failure, severe-POA Uremia-POA Severe hyperkalemia-POA Resolved Thrombocytopenia-POA Severe lactic acidosis-POA NSTEMI, rule-out demand ischemia vs true cardiac etiology-POA INTERVAL HISTORY: 06/17/2024: At the time of my evaluation, the patient was lying in bed. He is generally confused and critically ill appearing. Currently on the monitor the patient is borderline hypotensive 91/35 and a heart rate of 110 and respiratory rate of 26. The patient remains on a nasal cannula for oxygen supplementation. Laboratory data was significant for a WBC of 14.2, H&H 8.4/27.0 and a platelet count of 28. Chemistry panel showed sodium of 143, potassium 5.0, chloride is 104, CO2 of five, BUN 107, creatinine of 9.7 and a GFR of five. Anion gap of 34, lactic acid 9.1 and procalcitonin of 0.60. ABG this a.m. showed a pH of 6.87, pCO2 less than 15, PO2 138.9 and HC03 of 2.3. I currently do not see any preliminary microbiology data. CT of the abdomen, showed mild enterocolitis, c holelithiasis and urinary bladder wall thickening. The patient was started on antibiotic coverage with vancomycin, cefepime and Flagyl. The patient is also on pressor therapy with phenylephrine and is also on a bicarb drip. No other complaint. 06/18/2024: At the time of my evaluation, the patient was lying in bed. He is more awake today. Family members were present at the bedside. On the monitor, the vital signs are hemodynamically stable. Laboratory data today showed a interval increase of WBC to 16.4, H&H 8.2/23.7 and a platelet count of 27. Chemistry panel today was notable for a CO2 of 13 with a anion gap of 28, BUN 105, creatinine of 10.2 and a GFR of 5, lactic acid of 8.2. Total protein of 5.9 and albumin of 2.3. ABG today showed a pH of 7.33, pCO2 31, PO2 of 64.5, HC03 of 16.1 and a base excess of -8.5. Over the past 24 hours, urine output average was 0.07 mL/kg/hour and has a positive balance of 3683.1. Preliminary blood culture vial 1/2 was showing budding yeast, vial 2 was showing no growth. Overnight, the patient was started on micafungin continued on cefepime and Flagyl. No other complaint. REVIEW OF SYSTEMS: Unable to perform 12 point ROS due to patient's encephalopathy. PHYSICAL EXAM: GENERAL: Lethargic, weak HEENT: Normocephalic, atraumatic, dry mucosa NECK: Supple, no JVD, trachea midline LUNGS: Clear breath sounds bilaterally. No wheezes HEART: Regular rate and rhythm. Normal S1 and S2, positive murmurs , tachycardic ABD: Abdomen soft, nontender. Bowel sounds present EXT: No clubbing, cyanosis, or edema, bilateral feet wound with toe amputations with dressing CDI NEURO: Deferred Vital Signs (last 8hr) Date Time Temp Pulse Resp B/P (MAP) Pulse Ox O2 Delivery O2 Flow Rate FiO2 06/18/24 17:45 104 22 119/54 (75) 92 06/18/24 17:30 98 21 130/57 (81) 90 06/18/24 17:24 99.0 06/18/24 17:15 99 34 129/99 (109) 92 06/18/24 17:00 101 20 113/64 (80) 92 06/18/24 16:45 95 22 117/55 (75) 92 06/18/24 16:30 99 27 121/53 (75) 92 06/18/24 16:30 92 Nasal Cannula* 2 28 06/18/24 16:15 98 47 135/76 (95) 95 06/18/24 16:00 97 20 127/57 (80) 96 06/18/24 15:45 90 19 105/44 (64) 97 06/18/24 15:30 90 19 111/69 (83) 96 06/18/24 15:15 89 21 112/49 (70) 97 06/18/24 15:00 96 23 99/51 (67) 96 06/18/24 14:45 90 18 97/58 (71) 95 06/18/24 14:30 90 23 103/54 (70) 95 06/18/24 14:15 102 29 131/74 (93) 91 06/18/24 14:00 96 28 112/62 (79) 92 06/18/24 13:45 92 23 109/47 (67) 91 21 06/18/24 13:30 97 24 106/45 (65) 91 21 06/18/24 13:15 99 23 104/47 (66) 90 21 06/18/24 13:00 91 26 110/45 (66) 90 21 06/18/24 12:45 94 30 106/53 (70) 92 21 LABS: Hematology Labs: Test 06/18/24 04:50 06/17/24 01:31 Range/Units White Blood Count 16.4 H 4.8-10.8 K/uL Red Blood Count 2.64 L 4.50-6.20 MIL/uL Hemoglobin 8.2 L 14.0-18.0 g/dL Hematocrit 23.7 L 42-54 % Mean Corpuscular Volume 89.8 79-99 fL Mean Corpuscular Hemoglobin 31.1 27.0-33.0 pg Mean Corpuscular Hemoglobin Concent 34.6 32.0-36.0 g/dL Red Cell Distribution Width 15.2 11.0-15.5 % Platelet Count 27 L 130-400 K/uL Mean Platelet Volume 7.5-10.5 fL Immature Granulocyte % (Auto) 1.0 0-1 % Neutrophils (%) (Auto) 86.2 H 40.0-77.0 % Lymphocytes (%) (Auto) 3.3 L 21.0-51.0 % Monocytes (%) (Auto) 8.9 3.0-13.0 % Eosinophils (%) (Auto) 0.4 0.0-8.0 % Basophils (%) (Auto) 0.2 0.0-5.0 % Neutrophils # (Auto) 14.2 H 1.8-7.7 K/uL Lymphocytes # (Auto) 0.5 L 1.0-4.8 K/uL Monocytes # (Auto) 1.5 H 0.1-1.0 K/uL Eosinophils # (Auto) 0.07 0.00-0.70 K/uL Basophils # (Auto) 0.04 0.00-0.20 K/uL Absolute Immature Granulocyte (auto 0.16 0-1 K/uL Nucleated Red Blood Cells 0.0 0.0-0.19 % Erythrocyte Sedimentation Rate 45 H 0-20 MM/HR Chemistry Labs: Test 06/18/24 20:27 06/18/24 14:34 06/18/24 12:43 06/18/24 04:50 Range/Units Whole Blood Glucose 102 70-110 MG/DL Lactic Acid Level 8.2 H 0.8-2.5 mmol/L Sodium Level 143 136-145 mmol/L Potassium Level 4.0 3.5-5.1 mmol/L Chloride Level 102 101-111 mmol/L Carbon Dioxide Level 13 L 21-32 mmol/L Blood Urea Nitrogen 105 *H 7-18 mg/dL Creatinine 10.2 *H 0.5-1.3 mg/dL Glomerular Filtration Rate Calc 5 >90 mL/min Random Glucose 117 H 70-105 mg/dL Total Calcium 7.5 L 8.5-10.1 mg/dL Phosphorus Level 6.7 H 2.5-4.9 mg/dL Magnesium Level 1.90 1.80-2.40 mg/dL Total Bilirubin 0.5 0.2-1.0 mg/dL Aspartate Amino Transf (AST/SGOT) 32 10-37 U/L Alanine Aminotransferase (ALT/SGPT) 32 12-78 U/L Alkaline Phosphatase 96 50-136 U/L Total Protein 5.9 L 6.0-8.3 g/dL Albumin 2.3 L 3.5-5.0 g/dL Test 06/17/24 13:06 06/17/24 01:31 06/16/24 20:54 Range/Units Troponin I High Sensitivity 581 *H 4-75 ng/L Direct Bilirubin 0.1 0.0-0.3 mg/dL Total Creatine Kinase 82 21-232 U/L B-Type Natriuretic Peptide 630 H 0-100 pg/mL Triglycerides Level 175 30-200 mg/dL Cholesterol Level 191 <200 mg/dL LDL Cholesterol 113 H 0-99 mg/dL HDL Cholesterol 44 29-71 mg/dL Procalcitonin 0.60 H 0.05-0.5 ng/mL Thyroid Stimulating Hormone (TSH) 0.67 0.36-3.74 uIU/mL Hemoglobin A1c 7.3 H 4.0-6.0 % Estimated Average Glucose (eAG) 163 H 70-126 mg/dL Coagulation Labs: Test 06/17/24 01:31 Range/Units Prothrombin Time 11.9 H 9.6-11.6 SEC Prothromb Time International Ratio 1.14 0.85-1.15 Activated Partial Thromboplast Time 49.8 H 26.3-35.5 SEC DIAGNOSTICS / RADIOLOGY RESULTS: [ ] PLAN 06/17/2024: For now, we are going to continue current management for the patient. We will continue on oxygenation supplementation and adjust as necessary. The patient will continue on pressor therapy and bicarb drip. He will remain on antibiotic therapy regimen currently with vanco, Flagyl and cefepime. I am going to request a random cortisol level and we will positively start the patient on hydrocortisone. We will repeat surveillance labs in the morning. We will follow the multisensor intelligence officer's recommendation and management. We will continue to monitor the patient's progress and response to management. We will continue to provide general supportive care, GI and DVT prophylaxis. Further orders per attending MD and hospital course. 06/18/2024: For now, going to continue current management for the patient. We will continue aggressive antibiotic therapy as ordered and we will follow the culture results. I am going to challenge the patient with Lasix in efforts of improving urinary output. I am going to decrease the bicarb drip from 100 mL/hour to 50 mL/hour to avoid fluid volume overload given the patient's urinary output is minimal. I am going to request a chest x-ray now for evaluation of the lung field. We will also repeat a chest x-ray in a.m. as well as surveillance labs. Nephrology discuss with the family members regarding starting hemodialysis therapy with a goal of starting his therapy tomorrow. Unfortunately at this time a dialysis catheter can not be inserted due to the platelet count. We will need to give the patient platelets andFFP's in preparation for the hemodialysis catheter insertion. We will monitor the patient's progress and response to management. We will continue to provide general supportive care, GI and DVT prophylaxis. Further orders per attending MD and hospital course. NEURO: Minimize central acting medications as possible. Fall Precautions. Well lighted room through the day and minimize interruptions through the night to prevent acute delirium. PULMONARY: Supplemental 02 as needed Titrate Fio2 to keep Spo2 > or = 90% DuoNeb�s and CPT as needed IS hourly while awake for pulmonary hygiene Out of bed to chair as tolerated VAP Bundle CARDIOVASCULAR: Follow hemodynamics. Titrate vasopressor to keep MAP >65 or systolic blood pressure >95mmHg DIPS: Phenylephrine LINES: PIV's GI & NUTRITION: Continue nutritional support Aspirations precautions Prokinetic agents and laxatives as needed KIDNEYS & ELECTROLYTES: Strict monitoring of intake and output Daily weights Avoid nephrotoxic agents Monitor electrolytes and replace as needed Goal urine output of 30mL/hr or 0.5mL/kg/hr Urine output: [ ] Fluid Balance: [ ] ENDOCRINE: Maintain blood glucose between 100-180 at all times. Insulin sliding scale for blood glucose management INFECTIOUS DISEASE: Trend temperature. Rosenberg-culture if febrile. Micro: [ ] Antibiotics: [ ] HEMATOLOGY & COAGULATION: Monitor H&H. Keep Hgb > 7 Transfuse 1 unit of PRBC for Hgb < 7 Transfuse 1 pack of platelets of platelets < 20, 000 Watch for any signs and symptoms of bleeding SKIN: Pressure ulcer prevention per facility protocol Rehab: PT/OT Prophylaxis: GI: Famotidine DVT: SCD Code Status: Full Resuscitation Disposition: ICU Other: I personally spent 40 minutes of critical care time in treatment of this patient. This includes patient management, time at bedside, time reviewing tests, labs, appropriate images and studies, documentation, and patient care coordination. This time excludes separately billable procedures. Case was discussed and seen with my supervising physician. The above plan was formulated and agreed upon. LALI BOLDEN FIRMWARE SOFTWARE VERIFICATION ENGINEER Jun 18, 2024 20:37
[2024-06-18 21:33] LABS: POTASSIUM 3.4 mmol/L (3.5-5.1)
[2024-06-18 21:35] LABS: CREATININE 10.3 mg/dL (0.5-1.3)
[2024-06-18] MEDS: furoSEMIDE 40MG VIAL IV ONE (21:50)
[2024-06-19] VITALS (68 sets, daily range): BP systolic 68–153; BP diastolic 29–104; PULSE 71–111; RESP 11–28; TEMP 97.8–99; O2SAT 96
[2024-06-19 05:18] LABS: BASOPHILS # (AUTO) 0.02 K/uL (0.00-0.20); BASOPHILS % (AUTO) 0.2 % (0.0-5.0); EOSINOPHILS # (AUTO) 0.02 K/uL (0.00-0.70); EOSINOPHILS % (AUTO) 0.2 % (0.0-8.0); IMMATURE GRANULOCYTE ABSOLUTE 0.07 K/uL (0-1); LYMPHOCYTES # (AUTO) 0.6 K/uL (1.0-4.8); MEAN CORPUSCULAR HEMOGLOBIN 31.1 pg (27.0-33.0); MEAN CORPUSCULAR HGB CONC 36.4 g/dL (32.0-36.0); MEAN CORPUSCULAR VOLUME 85.7 fL (79-99); MONOCYTES # (AUTO) 0.7 K/uL (0.1-1.0); MONOCYTES % (AUTO) 6.6 % (3.0-13.0); NEUTROPHILS # (AUTO) 9.8 K/uL (1.8-7.7); NEUTROPHILS % (AUTO) 87.4 % (40.0-77.0); PLATELET COUNT (AUTO) 14 K/uL (130-400); RED BLOOD CELL COUNT(AUTO) 2.44 MIL/uL (4.50-6.20); RED CELL DISTRIBUTION WIDTH 14.7 % (11.0-15.5); WHITE BLOOD COUNT (AUTO) 11.2 K/uL (4.8-10.8)
[2024-06-19 05:22] LABS: INR 1.25 (0.85-1.15)
[2024-06-19 05:27] LABS: ALBUMIN 2.1 g/dL (3.5-5.0); BILIRUBIN,TOTAL 0.6 mg/dL (0.2-1.0); MAGNESIUM 1.9 mg/dL (1.80-2.40); PHOSPHORUS 5.8 mg/dL (2.5-4.9); POTASSIUM 3.2 mmol/L (3.5-5.1); TOTAL PROTEIN, SERUM 5.7 g/dL (6.0-8.3)
[2024-06-19 05:35] LABS: CREATININE 10.2 mg/dL (0.5-1.3)
[2024-06-19 05:39] LABS: HEMATOCRIT 20.9 % (42-54)
[2024-06-19 07:26] LABS: ABG BASE EXCESS -1.3 mmol/L (-2.0-3.0); ABG HCO3 23.1 mmol/L (21.0-28.0); ABG OXYGEN SATURATION 94.6 % (94.0-98.0); ABG PCO2 37 mmHg (35-48); ABG PH 7.416 (7.350-7.450); CARBON MONOXIDE 0.3 % (0.5-1.5); DEVICE COMMENT RICHI RN AL; HHb 5.3; PO2, ARTERIAL BG 81.5 mmHg (83.0-108.0); VENT MODE, BG 2L NC (ROOM AIR)
[2024-06-19] MEDS: HONEY 1 APPL/ML TUBE TP SCH (08:58)
--- NOTE | 2024-06-19 09:36 | NUR ---
SHANELLE Reyes updating sister thomas via telephone and brother Ronaldo regarding HD plan. Plan of care discussed.
--- NOTE | 2024-06-19 10:14 | HMCIMG ---
PORTABLE CHEST RADIOGRAPH INDICATION: SOB COMPARISON: 06/18/2024 FINDINGS: gambling monitor leads overlie the field of view. Tip of right PICC within the SVC. Heart remains enlarged. The pulmonary vascularity and mauricio appear normal. No abnormal pulmonary parenchymal opacity or consolidation identified. No significant pleural effusion noted. No pneumothorax detected. IMPRESSION: Stable cardiac megaly without radiographic evidence for any acute cardiopulmonary process.
--- NOTE | 2024-06-19 10:24 | HMCIMG ---
PORTABLE CHEST RADIOGRAPH INDICATION: SOB COMPARISON: 06/16/2024 FINDINGS: chemical engineering technician leads overlie the field of view. Patient positioning is not optimal, but the radiologic examination is still believed to be of reasonable diagnostic quality. Stable right PICC. Stable heart size. Mild calcific plaque is present along the aortic arch rosales. The pulmonary vascularity and mauricio appear normal. Suspect very small layering right and very small left pleural effusions with subjacent passive linear opacities. No evidence for consolidation. No pneumothorax detected. IMPRESSION: Suspect very small layering right and very small left pleural effusions with subjacent passive atelectasis.
--- NOTE | 2024-06-19 11:33 | PN ---
NEPHROLOGY PROGRESS NOTE Date/Time Patient Seen: Jun 19, 2024 SUBJECTIVE: This is a 69-year-old male with a past medical history of peripheral artery disease with osteomyelitis S/p left 4th and 5th toe and right 3rd toe amputation, anemia, chronic pain, diabetes mellitus type 2, hypertension, hyperlipidemia, chronic kidney disease, recent COVID-19 infection. He presented to the emergency room via EMS from [facility] with complaints of low platelets, poor appetite and generalized weakness. Influenza and COVID swabs were negative CT of the abdomen showed mild enterocolitis with mild to moderate small and large bowel liquid contents. He was admitted to the ICU for further medical management of septic shock He continues to require vasopressors to maintain blood pressure. Continues with a severe lactic acidosis. Blood cultures were positive for budding yeast He continues on antibiotics He continues with altered mental status In the emergency room he was noted to have elevated BUN/creatinine and hyperkalemia. Renal function continues to worsen Electrolytes are stable. Continues to decreased urine output Renal ultrasound was noted Trialysis currently on hold due to thrombocytopenia He was seen in the ICU No Family at the bedside Condition remains critical and guarded REVIEW OF SYSTEMS: Unable to obtain due to patient's status PHYSICAL EXAM: GENERAL: Lethargic. No acute distress. Well-nourished. EYES: EOMI. Anicteric. HENT: Moist mucous membranes. No scleral icterus. No cervical lymphadenopathy. LUNGS: Clear to auscultation bilaterally. No accessory muscle use. CARDIOVASCULAR: Regular rate and rhythm. No murmur. No JVD. ABDOMEN: Soft, non-tender and non-distended. No palpable masses. EXTREMITIES: No edema. Non-tender. SKIN: No rashes or lesions. Warm. NEUROLOGIC: No focal neurological deficits. CN II-XII grossly intact, but not individually tested. PSYCHIATRIC: Cooperative. Appropriate mood and affect. LABORATORY: [ ] Hematology Labs: Test 06/19/24 04:44 Range/Units White Blood Count 11.2 #H 4.8-10.8 K/uL Red Blood Count 2.44 L 4.50-6.20 MIL/uL Hemoglobin 7.6 L 14.0-18.0 g/dL Hematocrit 20.9 *L 42-54 % Mean Corpuscular Volume 85.7 79-99 fL Mean Corpuscular Hemoglobin 31.1 27.0-33.0 pg Mean Corpuscular Hemoglobin Concent 36.4 H 32.0-36.0 g/dL Red Cell Distribution Width 14.7 11.0-15.5 % Platelet Count 14 #L 130-400 K/uL Mean Platelet Volume 7.5-10.5 fL Immature Granulocyte % (Auto) 0.6 0-1 % Neutrophils (%) (Auto) 87.4 H 40.0-77.0 % Lymphocytes (%) (Auto) 5.0 L 21.0-51.0 % Monocytes (%) (Auto) 6.6 3.0-13.0 % Eosinophils (%) (Auto) 0.2 0.0-8.0 % Basophils (%) (Auto) 0.2 0.0-5.0 % Neutrophils # (Auto) 9.8 H 1.8-7.7 K/uL Lymphocytes # (Auto) 0.6 L 1.0-4.8 K/uL Monocytes # (Auto) 0.7 0.1-1.0 K/uL Eosinophils # (Auto) 0.02 0.00-0.70 K/uL Basophils # (Auto) 0.02 0.00-0.20 K/uL Absolute Immature Granulocyte (auto 0.07 0-1 K/uL Nucleated Red Blood Cells 0.0 0.0-0.19 % Chemistry Labs: Test 06/19/24 05:16 06/19/24 04:44 06/18/24 14:34 06/17/24 13:06 Range/Units Whole Blood Glucose 102 70-110 MG/DL Sodium Level 148 H 136-145 mmol/L Potassium Level 3.2 L 3.5-5.1 mmol/L Chloride Level 105 101-111 mmol/L Carbon Dioxide Level 25 21-32 mmol/L Blood Urea Nitrogen 108 *H 7-18 mg/dL Creatinine 10.2 *H 0.5-1.3 mg/dL Glomerular Filtration Rate Calc 5 >90 mL/min Random Glucose 118 H 70-105 mg/dL Total Calcium 7.9 L 8.5-10.1 mg/dL Phosphorus Level 5.8 H 2.5-4.9 mg/dL Magnesium Level 1.90 1.80-2.40 mg/dL Total Bilirubin 0.6 0.2-1.0 mg/dL Aspartate Amino Transf (AST/SGOT) 39 H 10-37 U/L Alanine Aminotransferase (ALT/SGPT) 27 12-78 U/L Alkaline Phosphatase 94 50-136 U/L Total Protein 5.7 L 6.0-8.3 g/dL Albumin 2.1 L 3.5-5.0 g/dL Lactic Acid Level 8.2 H 0.8-2.5 mmol/L Troponin I High Sensitivity 581 *H 4-75 ng/L Coagulation Labs: Test 06/19/24 04:44 Range/Units Prothrombin Time 13.0 H 9.6-11.6 SEC Prothromb Time International Ratio 1.25 H 0.85-1.15 Activated Partial Thromboplast Time 43.0 H 26.3-35.5 SEC DIAGNOSTICS / RADIOLOGY: REASON: SOB ORDERING PHYSICIAN: LALI BOLDEN NP PROCEDURE: CXR1VW - CHEST 1VW PORTABLE CHEST RADIOGRAPH INDICATION: SOB COMPARISON: 06/18/2024 FINDINGS: drapery cutter leads overlie the field of view. Tip of right PICC within the SVC. Heart remains enlarged. The pulmonary vascularity and mauricio appear normal. No abnormal pulmonary parenchymal opacity or consolidation identified. No significant pleural effusion noted. No pneumothorax detected. IMPRESSION: Stable cardiac megaly without radiographic evidence for any acute cardiopulmonary process. DICTATED BY: ROLANDO HAN MD DATE: 06/19/24 1011 REASON: SOB ORDERING PHYSICIAN: LALI BOLDEN NP PROCEDURE: CXR1VW - CHEST 1VW PORTABLE CHEST RADIOGRAPH INDICATION: SOB COMPARISON: 06/16/2024 FINDINGS: drapery cutter leads overlie the field of view. Patient positioning is not optimal, but the radiologic examination is still believed to be of reasonable diagnostic quality. Stable right PICC. Stable heart size. Mild calcific plaque is present along the aortic arch rosales. The pulmonary vascularity and mauricio appear normal. Suspect very small layering right and very small left pleural effusions with subjacent passive linear opacities. No evidence for consolidation. No pneumothorax detected. IMPRESSION: Suspect very small layering right and very small left pleural effusions with subjacent passive atelectasis. DICTATED BY: ROLANDO HAN MD DATE: 06/19/24 1021 REASON: sob ORDERING PHYSICIAN: LILIAM LACY [employer] PROCEDURE: ECHO CMP - ECHO 2-D COMPLETE APPROVED REPORT EXAM: Two-dimensional and M-mode echocardiogram with Doppler and color Doppler. INDICATION ICD: R06.02 Shortness of breath 2D Dimensions RVDd 5.0 cm LVEF(%) 68.3 (>50%) LVED Vol(simp.) 128.0 mL IVSd 1.4 (0.7-1.1cm) FS(%) 38 % LVES Vol(simp.) 51.0 mL LVDd 4.2 (3.8-5.6cm) LA (2D) 4.0 (1.6-4.0cm) LVEF(%, simp.) 60 % PWd 1.5 (0.7-1.1cm) Ao Root(2D) 4.0 (2.0-3.7cm) LA ESV INDEX (BP) 37.99 mL/m2 LVDs 2.6 (2.5-4.0cm) LVOT diam 2.3 (1.8-2.4cm) IVC diam 2.1 cm Deformation Strain Apical 4 -19.0 % Apical 2 -15.0 % Apical 3 -16.0 % Global Strain -17.0 % M-Mode Dimensions EPSS 1.1 cm LA (MM) 4.0 (1.6-4.0cm) Ao Root(MM) 3.0 (2.0-3.7cm) Aortic Valve AoV Vmax 2.5 m/s Ao Peak GR 24.7 mmHg LVOT Vmax 1.5 m/s AoV VTI 0.4 m Ao Mean GR 15.1 mmHg LVOT VTI 0.29 m DEBORA (VMAX) 2.9 cm2 DEBORA (VTI) 2.9 cm2 Mitral Valve MV E Vmax 144.9 cm/s DECEL Time 175 ms MV A Vmax 128.2 cm/s P 1/2 T 58 ms E/A ratio 1.1 MVA (PHT) 3.8 cm2 TDI E/E' Medial 16.1 E/E' Lateral 14.5 Medial E' Peak V 9.00 cm/s Lateral E' Peak V 10.00 cm/s Pulmonary Valve PV Vmax 1.3 m/s Tricuspid Valve TR Vmax 2.7 m/s RAP (EST) 3 mmHg RVSP 32.3 mmHg TR Peak GR 29.3 mmHg Left Ventricle The left ventricle is normal size. GS -17%. Hyoerdynamic LV with normal LV segmental wall motion. Moderate concentric left ventricular hypertrophy. LVEF is 60-65%. Grade 2 diastolic dysfunction. Right Ventricle The right ventricle is moderately dilated, measuring 5.0 cm. The right ventricular systolic function is normal. Atria The left atrium is mildly dilated with an LA ESV index of 38 mL/m�. The right atrium is moderately dilated. Aortic Valve Aortic valve is trileaflet, with mild sclerosis of the left coronary cusp. The aortic valve is seen to open near normally. No aortic regurgitation is present. There is no aortic valvular stenosis. Mitral Valve Mitral valve leaflets open well. Posterior annular and leaflet calcification noted. There is no mitral valve regurgitation noted. There is no mitral valve stenosis. Tricuspid Valve The tricuspid valve is normal in structure. There is trace of tricuspid valve regurgitation noted. Pulmonic Valve The pulmonary valve is normal in structure. There is no pulmonic valvular regurgitation. Great Vessels The aortic root is normal in size. The IVC is normal in size and collapses >50% with inspiration. Pericardium There is no pericardial effusion. Other Information Quality : Adequate Conclusion The left ventricle is normal size. Moderate concentric left ventricular hypertrophy. GS -17%. Hyoerdynamic LV with normal LV segmental wall motion. LVEF is 60-65%. Grade 2 diastolic dysfunction. Aortic valve is trileaflet, with mild sclerosis of the left coronary cusp. The aortic valve is seen to open near normally. There is no aortic valvular stenosis. Mitral valve leaflets open well. Posterior annular and leaflet calcification noted. There is no mitral valve stenosis. There is no mitral valve regurgitation noted. There is no pericardial effusion. DICTATED BY: KATJA LANDRY MD DATE: 06/17/24 0847 REASON: RENAL FAILURE ORDERING PHYSICIAN: EUSEBIO POWELL PROCEDURE: ABD PEL WO - CT ABDOMEN/PELVIS W/O CONTRAST CT ABDOMEN WITHOUT CONTRAST. CT PELVIS WITHOUT CONTRAST. INDICATION: Renal failure TECHNIQUE: Routine transaxial imaging using 5 mm slice thickness through the abdomen and pelvis without the administration of IV contrast. Thin slice reconstructions are also provided. Coronal and sagittal reformatted images acquired for interpretation. CT was performed with one or more of the following dose reduction techniques: Automated exposure control, adjustment of the mA and/or kV according to patient size, or use of iterative reconstruction technique. COMPARISON: None FINDINGS: Diagnostic sensitivity of this examination is limited by patient motion artifact. ON NONCONTRAST IMAGING: ABDOMEN: Heart size is normal. Mitral annular calcific plaque. Visible lung bases are clear. No abnormal renal calcifications, hydronephrosis, perinephric inflammation, or proximal hydroureter detected. The liver is normal in size and smooth in contour without biliary duct dilation. The spleen is normal in size and attenuation. Several miniscule calcifications within the gallbladder lumen. The pancreas appears normal without pancreatic duct dilation. The adrenal glands appear normal. No significant abdominal, retrocrural or retroperitoneal adenopathy noted. No evidence for intra-abdominal free air or organized fluid collection. Mild calcific plaque is noted along the abdominal aortic and iliac vessel rosales without aneurysmal dilation. PELVIS: Gallagher catheter within the nearly empty urinary bladder. Urinary bladder wall thickening is more than expected for empty urinary bladder. No evidence for free air or organized pelvic fluid collection. No significant pelvic adenopathy detected. Mild to moderate small and large bowel liquid contents. A few diverticula along the distal colon. Terminal ileum appears unremarkable. The appendix appears normal. Mild thoracolumbar spondylosis. IMPRESSION: 1. Probable mild enterocolitis with mild to moderate small and large bowel liquid contents. 2. Cholelithiasis. 3. Urinary bladder wall thickening, more than expected for empty urinary bladder. Correlation with urine studies is recommended. 4. Mild distal colonic diverticulosis. 5. Arteriosclerotic disease as described. DICTATED BY: ROLANDO HAN MD DATE: 06/17/24 1000 REASON: NETO ORDERING PHYSICIAN: BRENDA MAI MD PROCEDURE: RENAL - US RENAL SONOGRAM ULTRASOUND RENAL COMPLETE INDICATION: NETO TECHNIQUE: Routine ultrasound of the kidneys and urinary bladder with grayscale and color Doppler imaging was performed in real-time, and subsequently made available for review. COMPARISON: No prior studies available for comparison. FINDINGS: The right kidney measures 9.7 x 4.9 x 4.6 cm. No abnormal mass demonstrated. No evidence for hydronephrosis or shadowing stone. The left kidney measures 10.1 x 5.5 x 4.8 cm. No abnormal mass demonstrated. No evidence for hydronephrosis or shadowing stone. Urinary bladder wall thickness measures 4.0 mm, but exaggerated due to incomplete distention. No free fluid demonstrated. IMPRESSION: Normal sonographic appearance of the kidneys and urinary bladder. DICTATED BY: ROLANDO HAN MD DATE: 06/17/24 0949 REASON: cp ORDERING PHYSICIAN: MARY CARR MD PROCEDURE: CXR1VW - CHEST 1VW PORTABLE CHEST RADIOGRAPH INDICATION: cp COMPARISON: 05/06/2024 FINDINGS: drapery cutter leads overlie the field of view. Tip of right PICC within the SVC. Heart size is normal. Mild calcific plaque is present along the aortic arch rosales. The pulmonary vascularity and mauricio appear normal. No abnormal pulmonary parenchymal opacity or consolidation identified. No significant pleural effusion noted. No pneumothorax detected. IMPRESSION: No radiographic evidence for any acute cardiopulmonary process. DICTATED BY: ROLANDO HAN MD DATE: 06/16/242153 ASSESSMENT: Acute on chronic renal failure Severe Lactic acidosis Metabolic acidosis Hyperkalemia Septic shock, requiring vasopressor Acute encephalopathy Thrombocytopenia NSTEMI, rule-out demand ischemia vs true cardiac etiology Failure to thrive History of osteomyelitis with recent amputation Elevated troponin Elevated BNP Diabetes mellitus type 2 Hypertension Hyperlipidemia Peripheral artery disease PLAN: Labs, diagnostic, radiologic exams reviewed and interpreted by myself and supervising physician. We have reviewed external records in detail Trialysis currently on hold due to thrombocytopenia Pending Hematology consult. Require close monitoring of renal function and electrolytes Order CBC, CMP, and electrolytes in am Follow up culture results BiPAP as necessary, for respiratory distress Continue with IV pressors as needed Monitor blood pressure adjust medication doses as needed Avoid hypotensive episodes May use Dilaudid 0.5 mg IV every 6 hours as needed for severe pain Monitor blood sugars Strict intake, output, and daily weight should be monitored Please renally adjust medications Avoid nephrotoxic and nonsteroidal drugs Avoid contrast if possible Will continue to monitor renal function, anemia, electrolytes Treatment plan discussed with patient Questions were answered We have discussed with the other team physicians in detail about the care plan We will continue to monitor the patient closely Total critical care time spent with patient, nursing staff, critical care team over 35 minutes ATTESTATION BY PHYSICIAN I have seen and examined the patient. I reviewed the documentation, medical decision making, and treatment plan as noted by the mid-level provider above. I agree with the findings and plan of care. BRENDA MAI MD, ELIZABETH FNP Jun 19, 2024 11:33 BRENDA MAI MD Jun 19, 2024 22:48
[2024-06-19] MEDS: furoSEMIDE 20MG VIAL IV ONE (11:55)
[2024-06-19] MEDS: PoTASSium chloRIDE 20MEQ/100ML 100 ML IV ONE (13:56)
--- NOTE | 2024-06-19 14:55 | PN ---
[facility] PROGRESS NOTE Date of Service: Jun 19, 2024 Time of Service: 14:49 SUBJECTIVE: Patient is seen and examined at bedside, case discussed with the RN, during my visit the patient resting comfortably in bed, following simple commands, he is on blood pressure support with Levophed, getting sodium bicarbonate IV. BP 108/57, heart rate of 116, saturating 99% on 2 L nasal cannula. Hemoglobin 8.4, hematocrit 27.0, WBC 14.2, platelet count of 28. Sodium 143, potassium 5.0, bicarb of five, BUN 107, creatinine 9.7. ABG with pH of 7.8, pCO2 less than 15, bicarb of 2.3. 06/18 patient has been seen and examined at bedside, case discussed with the RN, patient remains confused, still on pressor support with Levophed and Andrew- Synephrine, patient also on sodium bicarbonate drip. No family members at bedside during my visit. Blood pressure 112/44, heart rate of 91, saturating 93%. CBC with WBC of 16.4, hemoglobin 8.2, hematocrit 23.7, platelet count of 27. Sodium 145, potassium 3.7, BUN of 102, creatinine 10.2, sodium bicarb of 12. ABG with pH of 7.33, pCO2 31, PO2 64, bicarb of 16.1. Septic workup reviewed, blood cultures no growth after 24 hours. Patient getting broad- spectrum IV antibiotics during my visit. CT of the abdomen pelvis probable mild enterocolitis with mild to moderate small and large bowel liquid content, cholelithiasis, urinary wall thickening, more than expected for empty urinary bladder. Mild distal colonic diverticulosis. 06/19 patient is seen and examined at bedside, case discussed with the RN, no acute events overnight, patient is still confused, however less compared to time of admission. Following very simple commands. He is currently off vasopressors. Replace, output since this morning 500 cc. Blood pressure 111/78, afebrile, saturating 96-98% 2 L nasal cannula. WBC trending down at 11.2, hemoglobin 7.6, hematocrit 20.9, platelet count of 14. BUN 108, creatini ne 10.2. ABG shows a pH 7.41, pCO2 37, PO2 81.5, bicarb 23.1. Blood culture showing Alicia tropicalis. Patient has been started on micafungin. Continue antibiotics. Continue critical care input and recommendation, continue Nephrology input and recommendation in terms of renal replacement therapy, continue daily weight, monitor intake and output. Follow anemia workup, stool o ccult blood, serial CBC transfuse 1 unit of PRBC hemoglobin less than seven, we will request Hematology consultation as well. REVIEW OF SYSTEMS CONSTITUTIONAL: Denies fevers, chills, or night sweats. No unintentional weight loss reported. NEUROLOGICAL: Complain of generalized body weakness Denies headache, amaurosis fugax,, sensory deficit, vertigo/spinning sensation, gait abnormalities, or tremors. ENT: No hearing loss, otalgia, otorrhea, rhinitis, rhinorrhea, hoarseness, or sore throat. CARDIOVASCULAR: Denies any exertional angina, dyspnea on exertion, orthopnea, paroxysmal nocturnal dyspnea, palpitations, life-threatening arrhythmias, claudication. PULMONARY: Denies any shortness of breath, cough, phlegm/sputum, hemoptysis, pleuritic chest pain. SLEEP: Denies morning headaches, daytime somnolence or napping. Denies difficulty falling asleep, staying asleep, waking from sleep. Denies knowledge of snoring. GASTROINTESTINAL: Complain of loss of appetite Denies any type of dysphagia to either liquids or solids. Denies nausea, vomiting, pyrosis, early satiety, abdominal pain, diarrhea, constipation, or changes in stool consistency or caliber. Denies coffee-ground emesis, hematemesis, hematochezia, or melanotic stools. GENITOURINARY: Denies frequency, urgency, nocturia, hematuria or incontinence (Storage/Irritative symptoms.) Low urinary stream, straining to void, urinary intermittency or hesitancy, splitting of the voiding stream, terminal dribbling. ENDOCRINOLOGIC: Denies polyuria, polydipsia, polyphagia or heat/cold intolerances. HEMATOLOGIC: Denies thrombophilia/previous clots, or coagulopathy/bleeding disorders. ONCOLOGIC: Denies personal history of malignancy. DERMATOLOGIC: Denies rashes or pruritus. PSYCHIATRIC: Denies any suicidal or homicidal ideation. Denies hallucinations. PHYSICAL EXAM GENERAL APPEARANCE: The patient remains confused. Withdrawing to painful stimulation. NEUROLOGICAL: Cranial nerves II-XII grossly intact. Motor is 5/5 in bilateral upper and lower extremities proximal to distal. No sensory deficits. HEENT: Face is symmetric. Pupils are equal and reactive. Extraocular movements are intact. NECK: Supple. No JVD. No thyromegaly. No submental, submandibular, pre- /postauricular, occipital or supraclavicular lymphadenopathy. CHEST: Normal chest expansion. No Telemetry. LUNGS: Absence of any rales, rhonchi or any wheezing. CARDIOVASCULAR: Regular. S1 and S2 normal. No appreciable rubs, murmurs or gallops. ABDOMEN: Soft, nontender, and nondistended. There is no rebound, voluntary guarding, or rigidity. : Deferred. No Gallagher. EXTREMITIES: Non-edematous and not cyanotic. No clubbing. Good capillary refill. SKIN: No skin breakdown. Vital Signs (last 8hr) Date Time Temp Pulse Resp B/P (MAP) Pulse Ox O2 Delivery O2 Flow Rate FiO2 06/19/24 14:00 107 28 111/78 (89) 95 28 06/19/24 13:00 91 15 108/70 (83) 92 28 06/19/24 12:30 96 Nasal Cannula* 2 28 06/19/24 12:00 97.9 06/19/24 12:00 82 26 111/51 (71) 95 28 06/19/24 11:45 82 26 111/51 (71) 95 28 06/19/24 11:15 78 16 106/56 (73) 97 28 06/19/24 11:00 84 22 94/46 (62) 95 28 06/19/24 10:15 79 28 103/47 (65) 97 28 06/19/24 10:00 84 19 119/64 (82) 98 28 06/19/24 09:15 81 16 123/58 (79) 97 28 06/19/24 08:45 82 15 114/59 (77) 97 28 06/19/24 08:15 80 16 107/52 (70) 98 28 06/19/24 08:00 82 16 110/56 (74) 97 28 06/19/24 07:30 98 20 133/65 (87) 95 28 06/19/24 07:21 98.2 06/19/24 07:15 96 Nasal Cannula* 2 06/19/24 07:00 84 15 118/58 (78) 98 28 LABS: Laboratory: Test 06/19/24 11:54 06/19/24 07:24 06/19/24 04:44 06/18/24 14:34 Range/Units Whole Blood Glucose 115 H 70-110 MG/DL Blood Gas Specimen Type Arterial Arterial Blood pH 7.416 7.350-7.450 Arterial Blood Partial Pressure CO2 37 35-48 mmHg Arterial Blood Partial Pressure O2 81.5 L 83.0-108.0 mmHg Arterial Blood HCO3 23.1 21.0-28.0 mmol/L Arterial Blood Oxygen Saturation 94.6 94.0-98.0 % Arterial Blood Base Excess -1.3 -2.0-3.0 mmol/L Hemoglobin (Blood Gas) 7.5 L 13.5-17.5 g/dL Sodium (Blood Gas) 144 136-145 MMOL/L Bedside Potassium (Blood Gas) 3.1 L 3.4-4.5 MMOL/L Bedside Chloride (Blood Gas) 103 98-107 MMOL/L Bedside Glucose (Blood Gas) 110 H 65-95 MG/DL Bedside Ionized Calcium (Blood Gas) 0.96 L 1.15-1.33 MMOL/L Bedside Lactic Acid (Blood Gas) 4.67 *H 0.36-0.75 MMOL/L Blood Gas Temperature 37.0 35.5-37.0 CELSIUS Blood Gas Flow-by 2.00 0.00-15.00 L/min Blood Gas Vent Mode 2L NC ROOM AIR FiO2 28.0 % Blood Gas Specimen Comment MAURO RN AL White Blood Count 11.2 #H 4.8-10.8 K/uL Red Blood Count 2.44 L 4.50-6.20 MIL/uL Hemoglobin 7.6 L 14.0-18.0 g/dL Hematocrit 20.9 *L 42-54 % Mean Corpuscular Volume 85.7 79-99 fL Mean Corpuscular Hemoglobin 31.1 27.0-33.0 pg Mean Corpuscular Hemoglobin Concent 36.4 H 32.0-36.0 g/dL Red Cell Distribution Width 14.7 11.0-15.5 % Platelet Count 14 #L 130-400 K/uL Mean Platelet Volume 7.5-10.5 fL Immature Granulocyte % (Auto) 0.6 0-1 % Neutrophils (%) (Auto) 87.4 H 40.0-77.0 % Lymphocytes (%) (Auto) 5.0 L 21.0-51.0 % Monocytes (%) (Auto) 6.6 3.0-13.0 % Eosinophils (%) (Auto) 0.2 0.0-8.0 % Basophils (%) (Auto) 0.2 0.0-5.0 % Neutrophils # (Auto) 9.8 H 1.8-7.7 K/uL Lymphocytes # (Auto) 0.6 L 1.0-4.8 K/uL Monocytes # (Auto) 0.7 0.1-1.0 K/uL Eosinophils # (Auto) 0.02 0.00-0.70 K/uL Basophils # (Auto) 0.02 0.00-0.20 K/uL Absolute Immature Granulocyte (auto 0.07 0-1 K/uL Nucleated Red Blood Cells 0.0 0.0-0.19 % Prothrombin Time 13.0 H 9.6-11.6 SEC Prothromb Time International Ratio 1.25 H 0.85-1.15 Activated Partial Thromboplast Time 43.0 H 26.3-35.5 SEC Sodium Level 148 H 136-145 mmol/L Potassium Level 3.2 L 3.5-5.1 mmol/L Chloride Level 105 101-111 mmol/L Carbon Dioxide Level 25 21-32 mmol/L Blood Urea Nitrogen 108 *H 7-18 mg/dL Creatinine 10.2 *H 0.5-1.3 mg/dL Glomerular Filtration Rate Calc 5 >90 mL/min Random Glucose 118 H 70-105 mg/dL Total Calcium 7.9 L 8.5-10.1 mg/dL Phosphorus Level 5.8 H 2.5-4.9 mg/dL Magnesium Level 1.90 1.80-2.40 mg/dL Total Bilirubin 0.6 0.2-1.0 mg/dL Aspartate Amino Transf (AST/SGOT) 39 H 10-37 U/L Alanine Aminotransferase (ALT/SGPT) 27 12-78 U/L Alkaline Phosphatase 94 50-136 U/L Total Protein 5.7 L 6.0-8.3 g/dL Albumin 2.1 L 3.5-5.0 g/dL Lactic Acid Level 8.2 H 0.8-2.5 mmol/L Test 06/17/24 23:00 06/17/24 15:36 Range/Units Stool Occult Blood POSITIVE H NEGATIVE Cortisol PM Sample 26.7 H 2.3-11.9 ug/dL Current Medications Medications (Trade) Dose Ordered Sig/Roderick Route PRN Reason Start Time Stop Time Status Last Admin Dose Admin Albuterol Sulfate (Proventil 0.083% 2.5mg/3ml) 10 mg ONCE STAT IH 06/17/24 04:05 06/17/24 04:12 DC 06/17/24 04:31 10 MG Calcium Gluconate (Calcium Gluc 1gm Vial) 1 gm AD STAT IV 06/17/24 04:05 06/17/24 04:12 DC 06/17/24 04:21 1 GM Cefepime HCl (MAXipime 1 GM vial) 0.25 gm Q24H IVPB 06/17/24 04:00 06/18/24 04:06 DC 06/17/24 04:58 0.25 GM Cefepime HCl (MAXipime 1 GM vial) 1 gm Q24H IVPB 06/20/24 05:00 06/30/24 04:59 Cefepime HCl 0.25 gm/Sodium Chloride 50 ml @ 100 mls/hr Q24H IVPB 06/18/24 04:30 06/19/24 10:58 DC 06/19/24 05:26 100 MLS/HR Dextrose (D50w) 50 ml AD PRN IV HYPOGLYCEMIA PROTOCOL 06/17/24 01:00 06/17/24 01:01 DC Dextrose (D50w) 50 ml AD PRN IV HYPOGLYCEMIA PROTOCOL 06/17/24 01:00 07/17/24 00:59 Dextrose (D50w) 50 ml ONCE STAT IV 06/17/24 04:05 06/17/24 04:12 DC 06/17/24 04:21 50 ML Famotidine (Pepcid 20mg Vial) 20 mg Q48H IV 06/17/24 01:00 07/17/24 00:59 06/19/24 00:40 20 MG Glucagon (Glucagon 1mg Kit) 1 mg AD PRN IM HYPOGLYCEMIA PROTOCOL 06/17/24 01:00 06/17/24 01:01 DC Glucagon (Glucagon 1mg Kit) 1 mg AD PRN IM HYPOGLYCEMIA PROTOCOL 06/17/24 01:00 07/17/24 00:59 Hydrocortisone Sodium Succinate (Solu-corTEF 100MG) 50 mg Q8H IV 06/18/24 11:30 07/18/24 11:29 06/19/24 11:55 50 MG Insulin Human Regular (humuLIN R 100 UNIT/ML 3ML) 10 unit ONCE STAT IV 06/17/24 04:05 06/17/24 04:12 DC 06/17/24 04:28 10 UNIT Insulin Human Regular (humuLIN R 100 UNIT/ML 3ML) INSULIN SLIDING SCAL... ACHS SQ 06/17/24 07:30 07/17/24 07:29 Leptospermum Honey (Medihoney) 1 appl DAILY TP 06/19/24 09:00 07/19/24 08:59 06/19/24 08:58 1 APPL Metronidazole/ Sodium Chloride (flaGYL) 500 mg Q8H IV 06/17/24 05:00 06/27/24 04:59 06/19/24 13:56 500 MG Micafungin Sodium 100 ml @ 100 mls/hr Q24H IV 06/18/24 00:00 07/18/24 00:00 06/19/24 00:38 100 MLS/HR Norepinephrine 250 ml @ 0 mls/hr PROTOCOL IV 06/16/24 22:00 07/16/24 21:59 06/17/24 05:33 24.5 MLS/HR Pharmacy Profile Note (Pharmacy Communication) 1 each ONCE MISC 06/17/24 23:00 06/19/24 07:13 DC 06/17/24 23:31 1 EACH Phenylephrine HCl 100 mg/Sodium Chloride 250 ml @ 0 mls/hr AD PRN IV TITRATE 06/17/24 10:30 07/17/24 10:29 06/18/24 05:48 27 MLS/HR Piperacillin Sod/ Tazobactam Sod (Zosyn 3.375gm+NS 50ml) 3.375 gm Q12H IV 06/16/24 21:30 06/17/24 01:03 DC 06/16/24 21:42 3.375 GM Piperacillin Sod/ Tazobactam Sod (Zosyn 3.375gm+NS 50ml) 3.375 gm Q12H IVPB 06/17/24 01:00 06/17/24 04:00 DC 06/17/24 02:54 3.375 GM Sodium Bicarbonate / Dextrose 1,000 ml @ 0 mls/hr Q0M IVP 06/17/24 05:00 06/17/24 04:58 DC Sodium Bicarbonate 150 meq/Dextrose 1,150 ml @ 50 mls/hr Q23H IVP 06/18/24 08:00 06/19/24 12:24 DC 06/18/24 20:23 100 MLS/HR Sodium Bicarbonate 150 meq/Dextrose 1,150 ml @ 100 mls/hr [id number] IVP 06/17/24 05:00 06/18/24 04:44 DC 06/17/24 21:00 100 MLS/HR Sodium Polystyrene Sulfonate (kayEXALate 15 GM/60 ML) 15 gm Q2H PO 06/16/24 21:30 06/16/24 23:31 DC 06/16/24 22:21 15 GM Sodium Chloride 1,000 ml @ 150 mls/hr Q6H40M IV 06/16/24 23:00 06/17/24 09:10 DC 06/17/24 05:15 150 MLS/HR Sodium Chloride (NS 50ml) 50 ml AD IV 06/17/24 01:00 06/17/24 01:05 DC Thiamine HCl (Vitamin B-1) 100 mg DAILY IVP 06/17/24 09:00 07/17/24 08:59 06/19/24 08:58 100 MG Vancomycin HCl (Vancomycin 750mg) 750 mg Q96H IVPB 06/20/24 22:00 06/17/24 14:00 DC Vancomycin HCl (Vancomycin Protocol) 1 each AD IV 06/17/24 01:30 06/17/24 14:01 DC DIAGNOSTICS / RADIOLOGY: [ ] PORTABLE CHEST RADIOGRAPH INDICATION: SOB COMPARISON: 06/18/2024 FINDINGS: panel monitor leads overlie the field of view. Tip of right PICC within the SVC. Heart remains enlarged. The pulmonary vascularity and mauricio appear normal. No abnormal pulmonary parenchymal opacity or consolidation identified. No significant pleural effusion noted. No pneumothorax detected. IMPRESSION: Stable cardiac megaly without radiographic evidence for any acute cardiopulmonary process. 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 Continue the patient on broad-spectrum IV antibiotics, continue micafungin. Continue to follow Nephrology input recommendation terms of renal replacement therapy Anemia workup. Transfuse as needed. Hematology consultation requested per Follow critical care input and recommendation NEURO: Minimize central acting medications as possible. Fall Precautions. Well lighted room through the day and minimize interruptions through the night to prevent acute delirium. PULMONARY: Supplemental 02 as needed BiPAP as necessary, for respiratory distress Titrate Fio2 to keep Spo2 > or = 90% DuoNeb�s and CPT as needed IS hourly while awake for pulmonary hygiene prn Out of bed to chair as tolerated Maintain aspiration precautions at all times CARDIOVASCULAR: Follow hemodynamics. Vital signs per facility protocol GI & NUTRITION: Continue nutritional support Aspirations precautions Prokinetic agents and laxatives as needed KIDNEYS & ELECTROLYTES: Strict monitoring of intake and output Daily weights Avoid nephrotoxic agents Monitor electrolytes and replace as needed Goal urine output of 30mL/hr or 0.5mL/kg/hr Medications to be dosed according to renal function. Avoid contrast if possible ENDOCRINE: Maintain blood glucose between 100-180 at all times. Insulin sliding scale for blood glucose management Hypoglycemia and hyperglycemia protocol in place INFECTIOUS DISEASE: Trend temperature, WBC and procalcitonin level Follow cultures, deescalate antibiotics as soon as possible. Panculture if new onset fever HEMATOLOGY & COAGULATION: Monitor H&H. Keep Hgb > 7 Transfuse 1 unit of PRBC for Hgb < 7 Transfuse 1 pack of platelets of platelets < 20, 000 Watch for any signs and symptoms of bleeding SKIN: Pressure ulcer prevention per facility protocol Specialty mattress as needed ORTHO/REHAB Continue PT/OT PRN: MEDICATIONS Tylenol 650 mg po every 4 hrs for fever zofran 4 mg IV every 6 hrs for n/v Hydralazine 5 mg IV every 4 hrs systolic pressure > 160 bowel regiment: lactulose 20 gm PO BID PRN constipation Supportive measures: Continue GI and DVT prophylaxis Disposition: Pending improvement in clinical condition All questions answered time spent: > 35 min CHRIS MARKS MD Jun 19, 2024 14:54
--- NOTE | 2024-06-19 15:05 | NUR ---
SPEECH NOTE: ACTUARIAL INTERN arrived to patient's room for re-evaluation; however, as per nurse Greene, hold eval for tomorrow as patient is not yet appropriate for oral intake. ACTUARIAL INTERN will follow up tomorrow. All questions answered. Addendum: 06/19/[address] [facility] CARL[facility] PORTER Amended: Links added.
[2024-06-19 15:25] LABS: % IRON SATURATION 79.7 % (30-44)
[2024-06-19] MEDS ORDERED: PHARMACY COMMUNICATION 1 EACH EACH MISC SCH (15:30)
[2024-06-19] MEDS ORDERED: COMPOUND IV REFRIGERATED 1 EACH IVSOLN MISC PRN (16:00)
[2024-06-19] MEDS: EPOETIN ALFA-EPBX (NON-ESRD) 10,000 UNIT/ML VIAL SQ ONE (16:45)
--- NOTE | 2024-06-19 18:22 | PN ---
[facility] PROGRESS NOTE Date Patient Seen: Jun 19, 2024 Time of Visit: 18:12 Supervising Physician: Dr. Arizmendi Primary Care Physician: [None-recently relocated from [place]] Outpatient Specialists: [ ] Inpatient Consults: [facility] team, nephro: Dr. Dowd, cardio: Dr. Bae] PROBLEM LIST: Septic shock, requiring pressor-POA Acute encephalopathy; likely multifactorial infectious, uremic and toxic metabolic-POA Severe metabolic acidosis-POA Acute renal failure, severe-POA Uremia-POA Severe hyperkalemia-POA Resolved Thrombocytopenia-POA Severe lactic acidosis-POA NSTEMI, rule-out demand ischemia vs true cardiac etiology-POA INTERVAL HISTORY: 06/17/2024: At the time of my evaluation, the patient was lying in bed. He is generally confused and critically ill appearing. Currently on the monitor the patient is borderline hypotensive 91/35 and a heart rate of 110 and respiratory rate of 26. The patient remains on a nasal cannula for oxygen supplementation. Laboratory data was significant for a WBC of 14.2, H&H 8.4/27.0 and a platelet count of 28. Chemistry panel showed sodium of 143, potassium 5.0, chloride is 104, CO2 of five, BUN 107, creatinine of 9.7 and a GFR of five. Anion gap of 34, lactic acid 9.1 and procalcitonin of 0.60. ABG this a.m. showed a pH of 6.87, pCO2 less than 15, PO2 138.9 and HC03 of 2.3. I currently do not see any preliminary microbiology data. CT of the abdomen, showed mild enterocolitis, cholelithiasis and urinary bladder wall thickening. The patient was started on antibiotic coverage with vancomycin, cefepime and Flagyl. The patient is also on pressor therapy with phenylephrine and is also on a bicarb drip. No other complaint. 06/18/2024: At the time of my evaluation, the patient was lying in bed. He is more awake today. Family members were present at the bedside. On the monitor, the vital signs are hemodynamically stable. Laboratory data today showed a interval increase of WBC to 16.4, H&H 8.2/23.7 and a platelet count of 27. Chemistry panel today was notable for a CO2 of 13 with a anion gap of 28, BUN 105, creatinine of 10.2 and a GFR of 5, lactic acid of 8.2. Total protein of 5.9 and albumin of 2.3. ABG today showed a pH of 7.33, pCO2 31, PO2 of 64.5, HC03 of 16.1 and a base excess of -8.5. Over the past 24 hours, urine output average was 0.07 mL/kg/hour and has a positive balance of 3683.1. Preliminary blood culture vial 1/2 was showing budding yeast, vial 2 was showing no growth. Overnight, the patient was started on micafungin continued on cefepime and Flagyl. No other complaint. 06/19/2024: At the time of my evaluation, the patient is lying in bed. The staff nurse reports no acute events overnight. On the monitor, the patient remains hemodynamically stable and on nasal cannula for oxygen supplementation. On ABG, the patient had a pH of 7.41, pCO2 37, PO2 81.5 and a HC03 of 23.1 with a base excess of -1.3. On ABG, lactic acid of 4.67. Laboratory data today showed improved WBC count to 11.2, H&H 7.6/20.9 and a platelet count of 14. Chemistry panel showed sodium of 148, potassium of 3.2, chloride is 105, CO2 25, BUN of 108, creatinine of 10.2 and a GFR of five. Magnesium of 1.90. Troponin of 5.7 and albumin of 2.1. Chest x-ray obtained today showed stable cardiomegaly. The patient continues on antibiotic coverage with cefepime and micafungin. The patient also continues on the bicarb drip and was started on Lasix overnight. No other complaint. REVIEW OF SYSTEMS: Unable to perform 12 point ROS due to patient's encephalopathy. PHYSICAL EXAM: GENERAL: Lethargic, weak HEENT: Normocephalic, atraumatic, dry mucosa NECK: Supple, no JVD, trachea midline LUNGS: Clear breath sounds bilaterally. No wheezes HEART: Regular rate and rhythm. Normal S1 and S2, positive murmurs , tachycardic ABD: Abdomen soft, nontender. Bowel sounds present EXT: No clubbing, cyanosis, or edema, bilateral feet wound with toe amputations with dressing CDI NEURO: Deferred Vital Signs (last 8hr) Date Time Temp Pulse Resp B/P (MAP) Pulse Ox O2 Delivery O2 Flow Rate FiO2 06/19/24 16:30 96 Nasal Cannula* 2 28 06/19/24 16:21 98.2 06/19/24 16:00 85 17 117/69 (85) 95 28 06/19/24 15:00 99 28 123/73 (90) 95 28 06/19/24 14:00 107 28 111/78 (89) 95 28 06/19/24 13:00 91 15 108/70 (83) 92 28 06/19/24 12:30 96 Nasal Cannula* 2 28 06/19/24 12:00 97.9 06/19/24 12:00 82 26 111/51 (71) 95 28 06/19/24 11:45 82 26 111/51 (71) 95 28 06/19/24 11:15 78 16 106/56 (73) 97 28 06/19/24 11:00 84 22 94/46 (62) 95 28 06/19/24 10:15 79 28 103/47 (65) 97 28 LABS: Hematology Labs: Test 06/19/24 04:44 Range/Units White Blood Count 11.2 #H 4.8-10.8 K/uL Red Blood Count 2.44 L 4.50-6.20 MIL/uL Hemoglobin 7.6 L 14.0-18.0 g/dL Hematocrit 20.9 *L 42-54 % Mean Corpuscular Volume 85.7 79-99 fL Mean Corpuscular Hemoglobin 31.1 27.0-33.0 pg Mean Corpuscular Hemoglobin Concent 36.4 H 32.0-36.0 g/dL Red Cell Distribution Width 14.7 11.0-15.5 % Platelet Count 14 #L 130-400 K/uL Mean Platelet Volume 7.5-10.5 fL Immature Granulocyte % (Auto) 0.6 0-1 % Neutrophils (%) (Auto) 87.4 H 40.0-77.0 % Lymphocytes (%) (Auto) 5.0 L 21.0-51.0 % Monocytes (%) (Auto) 6.6 3.0-13.0 % Eosinophils (%) (Auto) 0.2 0.0-8.0 % Basophils (%) (Auto) 0.2 0.0-5.0 % Neutrophils # (Auto) 9.8 H 1.8-7.7 K/uL Lymphocytes # (Auto) 0.6 L 1.0-4.8 K/uL Monocytes # (Auto) 0.7 0.1-1.0 K/uL Eosinophils # (Auto) 0.02 0.00-0.70 K/uL Basophils # (Auto) 0.02 0.00-0.20 K/uL Absolute Immature Granulocyte (auto 0.07 0-1 K/uL Nucleated Red Blood Cells 0.0 0.0-0.19 % Chemistry Labs: Test 06/19/24 11:54 06/19/24 04:44 06/18/24 14:34 Range/Units Whole Blood Glucose 115 H 70-110 MG/DL Sodium Level 148 H 136-145 mmol/L Potassium Level 3.2 L 3.5-5.1 mmol/L Chloride Level 105 101-111 mmol/L Carbon Dioxide Level 25 21-32 mmol/L Blood Urea Nitrogen 108 *H 7-18 mg/dL Creatinine 10.2 *H 0.5-1.3 mg/dL Glomerular Filtration Rate Calc 5 >90 mL/min Random Glucose 118 H 70-105 mg/dL Total Calcium 7.9 L 8.5-10.1 mg/dL Phosphorus Level 5.8 H 2.5-4.9 mg/dL Magnesium Level 1.90 1.80-2.40 mg/dL Iron Level 75 65-175 mcg/dL Total Iron Binding Capacity 94 L 250-450 mcg/dL Percent Iron Saturation 79.7 H 30-44 % Total Bilirubin 0.6 0.2-1.0 mg/dL Aspartate Amino Transf (AST/SGOT) 39 H 10-37 U/L Alanine Aminotransferase (ALT/SGPT) 27 12-78 U/L Alkaline Phosphatase 94 50-136 U/L Total Protein 5.7 L 6.0-8.3 g/dL Albumin 2.1 L 3.5-5.0 g/dL Lactic Acid Level 8.2 H 0.8-2.5 mmol/L Coagulation Labs: Test 06/19/24 04:44 Range/Units Prothrombin Time 13.0 H 9.6-11.6 SEC Prothromb Time International Ratio 1.25 H 0.85-1.15 Activated Partial Thromboplast Time 43.0 H 26.3-35.5 SEC DIAGNOSTICS / RADIOLOGY RESULTS: [ ] PLAN 06/17/2024: For now, we are going to continue current management for the patient. We will continue on oxygenation supplementation and adjust as necessary. The patient will continue on pressor therapy and bicarb drip. He will remain on antibiotic therapy regimen currently with vanco, Flagyl and cefepime. I am going to request a random cortisol level and we will positively start the patient on hydrocortisone. We will repeat surveillance labs in the morning. We will follow the community health educator's recommendation and management. We will continue to monitor the patient's progress and response to management. We will continue to provide general supportive care, GI and DVT prophylaxis. Further orders per attending MD and hospital course. 06/18/2024: For now, going to continue current management for the patient. We will continue aggressive antibiotic therapy as ordered and we will follow the culture results. I am going to challenge the patient with Lasix in efforts of improving urinary output. I am going to decrease the bicarb drip from 100 mL/hour to 50 mL/hour to avoid fluid volume overload given the patient's urinary output is minimal. I am going to request a chest x-ray now for evaluation of the lung field. We will also repeat a chest x-ray in a.m. as well as surveillance labs. Nephrology discuss with the family members regarding starting hemodialysis therapy with a goal of starting his therapy tomorrow. Unfortunately at this time a dialysis catheter can not be inserted due to the platelet count. We will need to give the patient platelets andFFP's in preparation for the hemodialysis catheter insertion. We will monitor the patient's progress and response to management. We will continue to provide general supportive care, GI and DVT prophylaxis. Further orders per attending MD and hospital course. 06/19/2024: For now, going to continue current management for the patient. He was started on Lasix overnight which I am going to continue with Lasix 60 mg IV x1 dose then 40 mg IV Q8 hours x4 doses. I am going to go ahead and stop the bicarb drip. Because of the drop in H&H and platelet count, we will consult the hematologists and order DIC workup. I had an at length discussion with the family members including the RP present at the bedside regarding the acuity of his condition, the recommendation of the community health educator for hemodialysis with need for hemodialysis catheter insertion. After an at length discussion, the family members opted against hemodialysis for now and we will be discussing amongst the mselves regarding goals of care. We will follow up with the patient at a later time to inquire in the goals of care. We will continue to correct the electrolytes as necessary. We will monitor the patient's progress and response to management. We will continue to provide general supportive care, GI and DVT prophylaxis. Further orders per attending MD and hospital course. NEURO: Minimize central acting medications as possible. Fall Precautions. Well lighted room through the day and minimize interruptions through the night to prevent acute delirium. PULMONARY: Supplemental 02 as needed Titrate Fio2 to keep Spo2 > or = 90% DuoNeb�s and CPT as needed IS hourly while awake for pulmonary hygiene Out of bed to chair as tolerated VAP Bundle CARDIOVASCULAR: Follow hemodynamics. Titrate vasopressor to keep MAP >65 or systolic blood pressure >95mmHg DIPS: LINES: PIV's GI & NUTRITION: Continue nutritional support Aspirations precautions Prokinetic agents and laxatives as needed KIDNEYS & ELECTROLYTES: Strict monitoring of intake and output Daily weights Avoid nephrotoxic agents Monitor electrolytes and replace as needed Goal urine output of 30mL/hr or 0.5mL/kg/hr Urine output: [ ] Fluid Balance: [ ] ENDOCRINE: Maintain blood glucose between 100-180 at all times. Insulin sliding scale for blood glucose management INFECTIOUS DISEASE: Trend temperature. Rosenberg-culture if febrile. Micro: [ ] Antibiotics: Cefepime and Mycafungin HEMATOLOGY & COAGULATION: Monitor H&H. Keep Hgb > 7 Transfuse 1 unit of PRBC for Hgb < 7 Transfuse 1 pack of platelets of platelets < 20, 000 Watch for any signs and symptoms of bleeding SKIN: Pressure ulcer prevention per facility protocol Rehab: PT/OT Prophylaxis: GI: Famotidine DVT: SCD Code Status: Full Resuscitation Disposition: ICU Other: I personally spent more than 100 minutes of critical care time in treatment of this patient. This includes patient management time at bedside, multiple re- visits. time reviewing tests, labs, appropriate images and studies, documentation, at lenth discussion with family members and patient care coordination. This time excludes separately billable procedures. Case was discussed and seen with my supervising physician. The above plan was formulated and agreed upon. LALI BOLDEN NP Jun 19, 2024 18:22
[2024-06-19] MEDS: furoSEMIDE 40MG VIAL IV SCH (18:30)
[2024-06-19 20:55] LABS: MEAN CORPUSCULAR HEMOGLOBIN 30.7 pg (27.0-33.0); MEAN CORPUSCULAR VOLUME 85.4 fL (79-99); RED BLOOD CELL COUNT(AUTO) 2.05 MIL/uL (4.50-6.20); RED CELL DISTRIBUTION WIDTH 14.9 % (11.0-15.5); WHITE BLOOD COUNT (AUTO) 6.8 K/uL (4.8-10.8)
[2024-06-19 21:02] LABS: HEMATOCRIT 17.5 % (42-54); PLATELET COUNT (AUTO) 9 K/uL (130-400)
[2024-06-20] VITALS (105 sets, daily range): BP systolic 126–170; BP diastolic 44–96; PULSE 59–115; RESP 8–44; TEMP 97.8–98.8; O2SAT 99
--- NOTE | 2024-06-20 00:39 | CONS ---
INFECTIOUS DISEASE CONSULTATION NOTE DATE OF SERVICE: 06/19/2024 REQUESTING PHYSICIAN: Jluis Escobar MD REASON FOR CONSULTATION: Septic shock HISTORY OF PRESENT ILLNESS: This is a 69-year-old male with obesity, bilateral foot osteomyelitis, diabetes mellitus and hypertension, who was brought in from intermediate with decreased oral intake, decreased platelet, and weakness. The patient is found with hypertension, acute and chronic renal failure, subsequently admitted to ICU. He was initially started on a vasopressor, which has been discontinued. Patient had any fever. The patient is also found with thrombocytopenia. The patient is awake and alert. Blood culture now came back positive for Alicia tropicalis. The patient has been started on micafungin. No cough, no hemoptysis. PAST MEDICAL HISTORY: * Obesity. * Left foot osteomyelitis. * Right foot osteomyelitis. * Diabetes mellitus. * Hypertension. PAST SURGICAL HISTORY: * Left fourth and fifth toe amputation. * Right first and third toe amputation. ALLERGIES: No known drug allergies. CURRENT MEDICATIONS: Include, * Micafungin. * Levophed. * Pepcid. * Hydrocortisone. * Flagyl. * Cefepime. SOCIAL HISTORY: Lives at a intermediate. No alcohol, tobacco, or illicit drug use. FAMILY HISTORY: Positive for diabetes mellitus. REVIEW OF SYSTEMS: Greater than 10 systems were reviewed, negative except as documented above. CONSTITUTIONAL: Negative for abdominal pain. PHYSICAL EXAMINATION: GENERAL: On examination, elderly male. VITAL SIGNS: Temperature 97.4, pulse 64, respiratory rate 19, BP 119/64. EYES: Sclerae nonicteric. Pupils equal and reactive. HENT: No oral thrush seen. Moist oral mucosa. NECK: Supple. No JVD or thyromegaly. LUNGS: Good air entry. No rales, no rhonchi. CARDIOVASCULAR: S1, S2 regular. No murmur heard. ABDOMEN: Obese, soft. Bowel sound is present. CENTRAL NERVOUS SYSTEM: The patient is awake and alert. Bedbound debility. SKIN: No rashes. LYMPHATIC: No peripheral lymphadenopathy. BACK: No deformity, no pressure ulcer. HEMATOLOGIC: No bleeding or petechial lesions seen. MUSCULOSKELETAL: No joint swelling, erythema, or tenderness. LABORATORY DATA: Sodium 148, potassium 3.2, BUN 108, creatinine 10.2. WBC 11.8, hemoglobin 7.6, platelet 14. Occult blood positive. negative. COVID-19 negative. Blood cultures are growing Alicia tropicalis. RADIOLOGY: CT of the abdomen shows mild enterocolitis. A 2D Echocardiogram shows EF of 65%, no valvular abnormality. ASSESSMENT: A 69-year-old male presenting with weakness. Current problems include, * Septic shock. * Fungemia. * Acute renal failure. * Metabolic acidosis. * Thrombocytopenia. * Anemia. * Possible GI bleed. * Obesity. PLAN: * Continue critical care support. * Continue micafungin. * Continue pain management. * Continue cefepime. * Continue antiemetics. * Continue nutritional support. * Monitor electrolyte. * The patient will follow up closely. Thank you for allowing to participate in care of this patient. TID: [id number] RECEIPT: [id number] MTD
[2024-06-20] MEDS: ceFEPime HCL 1 GM VIAL IVPB SCH (04:45)
[2024-06-20 06:05] LABS: BASOPHILS # (AUTO) 0.01 K/uL (0.00-0.20); BASOPHILS % (AUTO) 0.1 % (0.0-5.0); EOSINOPHILS # (AUTO) 0.01 K/uL (0.00-0.70); EOSINOPHILS % (AUTO) 0.1 % (0.0-8.0); IMMATURE GRANULOCYTE ABSOLUTE 0.05 K/uL (0-1); LYMPHOCYTES # (AUTO) 0.3 K/uL (1.0-4.8); LYMPHOCYTES % (AUTO) 3.7 % (21.0-51.0); MEAN CORPUSCULAR HEMOGLOBIN 30.5 pg (27.0-33.0); MEAN CORPUSCULAR HGB CONC 35.1 g/dL (32.0-36.0); MONOCYTES # (AUTO) 0.7 K/uL (0.1-1.0); MONOCYTES % (AUTO) 8.9 % (3.0-13.0); NEUTROPHILS # (AUTO) 6.5 K/uL (1.8-7.7); NEUTROPHILS % (AUTO) 86.5 % (40.0-77.0); PLATELET COUNT (AUTO) 92 K/uL (130-400); RED CELL DISTRIBUTION WIDTH 14.9 % (11.0-15.5); WHITE BLOOD COUNT (AUTO) 7.5 K/uL (4.8-10.8)
[2024-06-20 06:08] LABS: HEMATOCRIT 17.4 % (42-54)
[2024-06-20 06:33] LABS: INR 1.37 (0.85-1.15); PROTHROMBIN TIME 14.1 SEC (9.6-11.6)
[2024-06-20 06:35] LABS: PARTIAL THROMBOPLASTIN TIME 35.6 SEC (26.3-35.5)
[2024-06-20 08:13] LABS: ALBUMIN 1.8 g/dL (3.5-5.0); BILIRUBIN,DIRECT 0.2 mg/dL (0.0-0.3); BILIRUBIN,TOTAL 0.7 mg/dL (0.2-1.0); CREATININE 7.6 mg/dL (0.5-1.3); MAGNESIUM 1.6 mg/dL (1.80-2.40); TOTAL PROTEIN, SERUM 4.9 g/dL (6.0-8.3)
[2024-06-20 08:23] LABS: POTASSIUM 2.3 mmol/L (3.5-5.1)
--- NOTE | 2024-06-20 09:10 | NUR ---
SPEECH NOTE: PONY RIDE ATTENDANT arrived to patient's room for re-evaluation; however, as per nurse, chelsea burns as patient is not yet appropriate for oral intake. PONY RIDE ATTENDANT will follow up when appropriate. All questions answered. Addendum: 06/20/24 at 0912 by TAI RANGEL Amended: Links added.
[2024-06-20 09:25] LABS: HEMATOCRIT 22.3 % (42-54); MEAN CORPUSCULAR HEMOGLOBIN 30.5 pg (27.0-33.0); MEAN CORPUSCULAR HGB CONC 35.4 g/dL (32.0-36.0); MEAN CORPUSCULAR VOLUME 86.1 fL (79-99); RED BLOOD CELL COUNT(AUTO) 2.59 MIL/uL (4.50-6.20); RED CELL DISTRIBUTION WIDTH 14.7 % (11.0-15.5); WHITE BLOOD COUNT (AUTO) 8.4 K/uL (4.8-10.8)
--- NOTE | 2024-06-20 11:36 | PN ---
NEPHROLOGY PROGRESS NOTE Date/Time Patient Seen: Jun 20, 2024 SUBJECTIVE: This is a 69-year-old male with a past medical history of peripheral artery disease with osteomyelitis S/p left 4th and 5th toe and right 3rd toe amputation, anemia, chronic pain, diabetes mellitus type 2, hypertension, hyperlipidemia, chronic kidney disease, recent COVID-19 infection. He presented to the emergency room via EMS from [facility] with complaints of low platelets, poor appetite and generalized weakness. Influenza and COVID swabs were negative CT of the abdomen showed mild enterocolitis with mild to moderate small and large bowel liquid contents. He was admitted to the ICU for further medical management of septic shock He continues to require vasopressors to maintain blood pressure. Continues with a severe lactic acidosis. Blood cultures were positive for budding yeast He continues on antibiotics In the emergency room he was noted to have elevated BUN/creatinine and hyperkalemia. Renal function is improving Electrolytes are stable. Urine output was noted Continues IV Lasix. Renal ultrasound was noted He was seen in the ICU Family at the bedside Condition remains critical and guarded REVIEW OF SYSTEMS: Unable to obtain due to patient's status PHYSICAL EXAM: GENERAL: Lethargic. No acute distress. Well-nourished. EYES: EOMI. Anicteric. HENT: Moist mucous membranes. No scleral icterus. No cervical lymphadenopathy. LUNGS: Clear to auscultation bilaterally. No accessory muscle use. CARDIOVASCULAR: Regular rate and rhythm. No murmur. No JVD. ABDOMEN: Soft, non-tender and non-distended. No palpable masses. EXTREMITIES: No edema. Non-tender. SKIN: No rashes or lesions. Warm. NEUROLOGIC: No focal neurological deficits. CN II-XII grossly intact, but not individually tested. PSYCHIATRIC: Cooperative. Appropriate mood and affect. LABORATORY: [ ] Hematology Labs: Test 06/20/24 09:10 06/20/24 05:43 Range/Units White Blood Count 8.4 4.8-10.8 K/uL Red Blood Count 2.59 #L 4.50-6.20 MIL/uL Hemoglobin 7.9 #L 14.0-18.0 g/dL Hematocrit 22.3 #L 42-54 % Mean Corpuscular Volume 86.1 79-99 fL Mean Corpuscular Hemoglobin 30.5 27.0-33.0 pg Mean Corpuscular Hemoglobin Concent 35.4 32.0-36.0 g/dL Red Cell Distribution Width 14.7 11.0-15.5 % Platelet Count 121 #L 130-400 K/uL Mean Platelet Volume 9.2 7.5-10.5 fL Nucleated Red Blood Cells 0.0 0.0-0.19 % Immature Granulocyte % (Auto) 0.7 0-1 % Neutrophils (%) (Auto) 86.5 H 40.0-77.0 % Lymphocytes (%) (Auto) 3.7 L 21.0-51.0 % Monocytes (%) (Auto) 8.9 3.0-13.0 % Eosinophils (%) (Auto) 0.1 0.0-8.0 % Basophils (%) (Auto) 0.1 0.0-5.0 % Neutrophils # (Auto) 6.5 1.8-7.7 K/uL Lymphocytes # (Auto) 0.3 L 1.0-4.8 K/uL Monocytes # (Auto) 0.7 0.1-1.0 K/uL Eosinophils # (Auto) 0.01 0.00-0.70 K/uL Basophils # (Auto) 0.01 0.00-0.20 K/uL Absolute Immature Granulocyte (auto 0.05 0-1 K/uL Reticulocyte Count (auto) 0.20811 L 0.42-2.23 % Immature Reticulocyte Fraction 2.00 H 0.18-0.48 % Chemistry Labs: Test 06/20/24 09:10 06/20/24 06:35 06/19/24 04:44 06/18/24 14:34 Range/Units Sodium Level 150 H 136-145 mmol/L Potassium Level 2.3 *L 3.5-5.1 mmol/L Chloride Level 110 101-111 mmol/L Carbon Dioxide Level 19 L 21-32 mmol/L Blood Urea Nitrogen 91 *H 7-18 mg/dL Creatinine 7.6 H 0.5-1.3 mg/dL Glomerular Filtration Rate Calc 7 >90 mL/min Random Glucose 176 H 70-105 mg/dL Total Calcium 6.4 L 8.5-10.1 mg/dL Magnesium Level 1.60 L 1.80-2.40 mg/dL Total Bilirubin 0.7 0.2-1.0 mg/dL Direct Bilirubin 0.2 0.0-0.3 mg/dL Aspartate Amino Transf (AST/SGOT) 40 H 10-37 U/L Alanine Aminotransferase (ALT/SGPT) 27 12-78 U/L Alkaline Phosphatase 86 50-136 U/L Lactate Dehydrogenase 299 H 81-234 U/L Total Protein 4.9 L 6.0-8.3 g/dL Albumin 1.8 L 3.5-5.0 g/dL Whole Blood Glucose 130 H 70-110 MG/DL Phosphorus Level 5.8 H 2.5-4.9 mg/dL Iron Level 75 65-175 mcg/dL Total Iron Binding Capacity 94 L 250-450 mcg/dL Percent Iron Saturation 79.7 H 30-44 % Lactic Acid Level 8.2 H 0.8-2.5 mmol/L Coagulation Labs: Test 06/20/24 05:43 Range/Units Prothrombin Time 14.1 H 9.6-11.6 SEC Prothromb Time International Ratio 1.37 H 0.85-1.15 Activated Partial Thromboplast Time 35.6 H 26.3-35.5 SEC Fibrinogen 346 180-350 mg/dL D-Dimer Quantitative (PE/DVT) 1328 *H 0-500 ng/mL DIAGNOSTICS / RADIOLOGY: REASON: SOB ORDERING PHYSICIAN: ALLI BOLDEN NP PROCEDURE: CXR1VW - CHEST 1VW PORTABLE CHEST RADIOGRAPH INDICATION: SOB COMPARISON: 06/18/2024 FINDINGS: clinical research monitor leads overlie the field of view. Tip of right PICC within the SVC. Heart remains enlarged. The pulmonary vascularity and mauricio appear normal. No abnormal pulmonary parenchymal opacity or consolidation identified. No significant pleural effusion noted. No pneumothorax detected. IMPRESSION: Stable cardiac megaly without radiographic evidence for any acute cardiopulmonary process. DICTATED BY: ROLANDO HAN MD DATE: 06/19/24 1011 REASON: SOB ORDERING PHYSICIAN: LALI BOLDEN NP PROCEDURE: CXR1VW - CHEST 1VW PORTABLE CHEST RADIOGRAPH INDICATION: SOB COMPARISON: 06/16/2024 FINDINGS: clinical research monitor leads overlie the field of view. Patient positioning is not optimal, but the radiologic examination is still believed to be of reasonable diagnostic quality. Stable right PICC. Stable heart size. Mild calcific plaque is present along the aortic arch rosales. The pulmonary vascularity and mauricio appear normal. Suspect very small layering right and very small left pleural effusions with subjacent passive linear opacities. No evidence for consolidation. No pneumothorax detected. IMPRESSION: Suspect very small layering right and very small left pleural effusions with subjacent passive atelectasis. DICTATED BY: ROLANDO HAN MD DATE: 06/19/24 1021 REASON: sob ORDERING PHYSICIAN: LILIAM LACY PROCEDURE: ECHO [facility] - ECHO 2-D COMPLETE APPROVED REPORT EXAM: Two-dimensional and M-mode echocardiogram with Doppler and color Doppler. INDICATION ICD: R06.02 Shortness of breath 2D Dimensions RVDd 5.0 cm LVEF(%) 68.3 (>50%) LVED Vol(simp.) 128.0 mL IVSd 1.4 (0.7-1.1cm) FS(%) 38 % LVES Vol(simp.) 51.0 mL LVDd 4.2 (3.8-5.6cm) LA (2D) 4.0 (1.6-4.0cm) LVEF(%, simp.) 60 % PWd 1.5 (0.7-1.1cm) Ao Root(2D) 4.0 (2.0-3.7cm) LA ESV INDEX (BP) 37.99 mL/m2 LVDs 2.6 (2.5-4.0cm) LVOT diam 2.3 (1.8-2.4cm) IVC diam 2.1 cm Deformation Strain Apical 4 -19.0 % Apical 2 -15.0 % Apical 3 -16.0 % Global Strain -17.0 % M-Mode Dimensions EPSS 1.1 cm LA (MM) 4.0 (1.6-4.0cm) Ao Root(MM) 3.0 (2.0-3.7cm) Aortic Valve AoV Vmax 2.5 m/s Ao Peak GR 24.7 mmHg LVOT Vmax 1.5 m/s AoV VTI 0.4 m Ao Mean GR 15.1 mmHg LVOT VTI 0.29 m DEBORA (VMAX) 2.9 cm2 DEBORA (VTI) 2.9 cm2 Mitral Valve MV E Vmax 144.9 cm/s DECEL Time 175 ms MV A Vmax 128.2 cm/s P 1/2 T 58 ms E/A ratio 1.1 MVA (PHT) 3.8 cm2 TDI E/E' Medial 16.1 E/E' Lateral 14.5 Medial E' Peak V 9.00 cm/s Lateral E' Peak V 10.00 cm/s Pulmonary Valve PV Vmax 1.3 m/s Tricuspid Valve TR Vmax 2.7 m/s RAP (EST) 3 mmHg RVSP 32.3 mmHg TR Peak GR 29.3 mmHg Left Ventricle The left ventricle is normal size. GS -17%. Hyoerdynamic LV with normal LV segmental wall motion. Moderate concentric left ventricular hypertrophy. LVEF is 60-65%. Grade 2 diastolic dysfunction. Right Ventricle The right ventricle is moderately dilated, measuring 5.0 cm. The right ventricular systolic function is normal. Atria The left atrium is mildly dilated with an LA ESV index of 38 mL/m�. The right atrium is moderately dilated. Aortic Valve Aortic valve is trileaflet, with mild sclerosis of the left coronary cusp. The aortic valve is seen to open near normally. No aortic regurgitation is present. There is no aortic valvular stenosis. Mitral Valve Mitral valve leaflets open well. Posterior annular and leaflet calcification noted. There is no mitral valve regurgitation noted. There is no mitral valve stenosis. Tricuspid Valve The tricuspid valve is normal in structure. There is trace of tricuspid valve regurgitation noted. Pulmonic Valve The pulmonary valve is normal in structure. There is no pulmonic valvular regurgitation. Great Vessels The aortic root is normal in size. The IVC is normal in size and collapses >50% with inspiration. Pericardium There is no pericardial effusion. Other Information Quality : Adequate Conclusion The left ventricle is normal size. Moderate concentric left ventricular hypertrophy. GS -17%. Hyoerdynamic LV with normal LV segmental wall motion. LVEF is 60-65%. Grade 2 diastolic dysfunction. Aortic valve is trileaflet, with mild sclerosis of the left coronary cusp. The aortic valve is seen to open near normally. There is no aortic valvular stenosis. Mitral valve leaflets open well. Posterior annular and leaflet calcification noted. There is no mitral valve stenosis. There is no mitral valve regurgitation noted. There is no pericardial effusion. DICTATED BY: KATJA LANDYR MD DATE: 06/17/24 0847 REASON: RENAL FAILURE ORDERING PHYSICIAN: EUSEBIO POWELL PROCEDURE: ABD PEL WO - CT ABDOMEN/PELVIS W/O CONTRAST CT ABDOMEN WITHOUT CONTRAST. CT PELVIS WITHOUT CONTRAST. INDICATION: Renal failure TECHNIQUE: Routine transaxial imaging using 5 mm slice thickness through the abdomen and pelvis without the administration of IV contrast. Thin slice reconstructions are also provided. Coronal and sagittal reformatted images acquired for interpretation. CT was performed with one or more of the following dose reduction techniques: Automated exposure control, adjustment of the mA and/or kV according to patient size, or use of iterative reconstruction technique. COMPARISON: None FINDINGS: Diagnostic sensitivity of this examination is limited by patient motion artifact. ON NONCONTRAST IMAGING: ABDOMEN: Heart size is normal. Mitral annular calcific plaque. Visible lung bases are clear. No abnormal renal calcifications, hydronephrosis, perinephric inflammation, or proximal hydroureter detected. The liver is normal in size and smooth in contour without biliary duct dilation. The spleen is normal in size and attenuation. Several miniscule calcifications within the gallbladder lumen. The pancreas appears normal without pancreatic duct dilation. The adrenal glands appear normal. No significant abdominal, retrocrural or retroperitoneal adenopathy noted. No evidence for intra-abdominal free air or organized fluid collection. Mild calcific plaque is noted along the abdominal aortic and iliac vessel rosales without aneurysmal dilation. PELVIS: Gallagher catheter within the nearly empty urinary bladder. Urinary bladder wall thickening is more than expected for empty urinary bladder. No evidence for free air or organized pelvic fluid collection. No significant pelvic adenopathy detected. Mild to moderate small and large bowel liquid contents. A few diverticula along the distal colon. Terminal ileum appears unremarkable. The appendix appears normal. Mild thoracolumbar spondylosis. IMPRESSION: 1. Probable mild enterocolitis with mild to moderate small and large bowel liquid contents. 2. Cholelithiasis. 3. Urinary bladder wall thickening, more than expected for empty urinary bladder. Correlation with urine studies is recommended. 4. Mild distal colonic diverticulosis. 5. Arteriosclerotic disease as described. DICTATED BY: ROLANDO HAN MD DATE: 06/17/24 1000 REASON: NETO ORDERING PHYSICIAN: BRENDA MAI MD PROCEDURE: RENAL - US RENAL SONOGRAM ULTRASOUND RENAL COMPLETE INDICATION: NETO TECHNIQUE: Routine ultrasound of the kidneys and urinary bladder with grayscale and color Doppler imaging was performed in real-time, and subsequently made available for review. COMPARISON: No prior studies available for comparison. FINDINGS: The right kidney measures 9.7 x 4.9 x 4.6 cm. No abnormal mass demonstrated. No evidence for hydronephrosis or shadowing stone. The left kidney measures 10.1 x 5.5 x 4.8 cm. No abnormal mass demonstrated. No evidence for hydronephrosis or shadowing stone. Urinary bladder wall thickness measures 4.0 mm, but exaggerated due to incomplete distention. No free fluid demonstrated. IMPRESSION: Normal sonographic appearance of the kidneys and urinary bladder. DICTATED BY: ROLANDO HAN MD DATE: 06/17/2449 REASON: cp ORDERING PHYSICIAN: MARY CARR MD PROCEDURE: CXR1VW - CHEST 1VW PORTABLE CHEST RADIOGRAPH INDICATION: cp COMPARISON: 05/06/2024 FINDINGS: clinical research monitor leads overlie the field of view. Tip of right PICC within the SVC. Heart size is normal. Mild calcific plaque is present along the aortic arch rosales. The pulmonary vascularity and mauricio appear normal. No abnormal pulmonary parenchymal opacity or consolidation identified. No significant pleural effusion noted. No pneumothorax detected. IMPRESSION: No radiographic evidence for any acute cardiopulmonary process. DICTATED BY: ROLANDO HAN MD DATE: 06/16/242153 ASSESSMENT: Acute on chronic renal failure Severe Lactic acidosis Metabolic acidosis Hyperkalemia Septic shock, requiring vasopressor Acute encephalopathy Thrombocytopenia NSTEMI, rule-out demand ischemia vs true cardiac etiology Failure to thrive History of osteomyelitis with recent amputation Elevated troponin Elevated BNP Diabetes mellitus type 2 Hypertension Hyperlipidemia Peripheral artery disease PLAN: Labs, diagnostic, radiologic exams reviewed and interpreted by myself and supervising physician. We have reviewed external records in detail There is no need for emergent renal replacement therapy at this time. Continue with IV diuretics Pending Hematology consult. Require close monitoring of renal function and electrolytes Order CBC, CMP, and electrolytes in am Follow up culture results BiPAP as necessary, for respiratory distress Continue with IV pressors as needed Monitor blood pressure adjust medication doses as needed Avoid hypotensive episodes May use Dilaudid 0.5 mg IV every 6 hours as needed for severe pain Monitor blood sugars Strict intake, output, and daily weight should be monitored Please renally adjust medications Avoid nephrotoxic and nonsteroidal drugs Avoid contrast if possible Will continue to monitor renal function, anemia, electrolytes Treatment plan discussed with patient Questions were answered We have discussed with the other team physicians in detail about the care plan We will continue to monitor the patient closely Total critical care time spent with patient, nursing staff, critical care team over 35 minutes ATTESTATION BY PHYSICIAN I have seen and examined the patient. I reviewed the documentation, medical decision making, and treatment plan as noted by the mid-level provider above. I agree with the findings and plan of care. BRENDA MAI MD, [facility] Jun 20, 2024 11:36 BRENDA MAI MD Jun 20, 2024 22:13
[2024-06-20] MEDS: PoTASSium chloRIDE 20MEQ/100ML 100 ML IV ONE (12:17)
[2024-06-20] MEDS: hydroMORPHone 0.5 MG SYG (0.5MG/0.5ML) IVP PRN (12:50)
[2024-06-20] MEDS: hydroMORPHone 0.5 MG SYG (0.5MG/0.5ML) ONE (13:07)
--- NOTE | 2024-06-20 13:38 | PN ---
[facility] PROGRESS NOTE Date of Service: Jun 20, 2024 Time of Service: 13:21 SUBJECTIVE: Patient is seen and examined at bedside, case discussed with the RN, during my visit the patient resting comfortably in bed, following simple commands, he is on blood pressure support with Levophed, getting sodium bicarbonate IV. BP 108/57, heart rate of 116, saturating 99% on 2 L nasal cannula. Hemoglobin 8.4, hematocrit 27.0, WBC 14.2, platelet count of 28. Sodium 143, potassium 5.0, bicarb of five, BUN 107, creatinine 9.7. ABG with pH of 7.8, pCO2 less than 15, bicarb of 2.3. 06/18 patient has been seen and examined at bedside, case discussed with the RN, patient remains confused, still on pressor support with Levophed and Andrew- Synephrine, patient also on sodium bicarbonate drip. No family members at bedside during my visit. Blood pressure 112/44, heart rate of 91, saturating 93%. CBC with WBC of 16.4, hemoglobin 8.2, hematocrit 23.7, platelet count of 27. Sodium 145, potassium 3.7, BUN of 102, creatinine 10.2, sodium bicarb of 12. ABG with pH of 7.33, pCO2 31, PO2 64, bicarb of 16.1. Septic workup reviewed, blood cultures no growth after 24 hours. Patient getting broad- spectrum IV antibiotics during my visit. CT of the abdomen pelvis probable mild enterocolitis with mild to moderate small and large bowel liquid content, cholelithiasis, urinary wall thickening, more than expected for empty urinary bladder. Mild distal colonic diverticulosis. 06/19 patient is seen and examined at bedside, case discussed with the RN, no acute events overnight, patient is still confused, however less compared to time of admission. Following very simple commands. He is currently off vasopressors. Replace, output since this morning 500 cc. Blood pressure 111/78, afebrile, saturating 96-98% 2 L nasal cannula. WBC trending down at 11.2, hemoglobin 7.6, hematocrit 20.9, platelet count of 14. BUN 108, creatini ne 10.2. ABG shows a pH 7.41, pCO2 37, PO2 81.5, bicarb 23.1. Blood culture showing Alicia tropicalis. Patient has been started on micafungin. Continue antibiotics. Continue critical care input and recommendation, continue Nephrology input and recommendation in terms of renal replacement therapy, continue daily weight, monitor intake and output. Follow anemia workup, stool o ccult blood, serial CBC transfuse 1 unit of PRBC hemoglobin less than seven, we will request Hematology consultation as well. 06/20 patient seen at bedside, no acute events overnight. He is not requiring pressors he is afebrile, hemodynamically stable saturating well on 2 L nasal cannula. Hemoglobin was 6.1 and platelets low at night, we will be transfused with packed red blood cells and platelets per critical Care, we will follow up post transfusion. Potassium decreased from 3.4 down to 3.2, creatinine stable at 10.2, we will follow up with Nephrology for recommendations. Urine output is improving, he has been started on Lasix, we will follow up. Patient continues on micafungin. Pt reticulocyte count low at 0.18 suggesting decreased production of RBC, FOBT positive as well concerning for GI Bleed. Will consult hematology and GI and follow up REVIEW OF SYSTEMS CONSTITUTIONAL: Denies fevers, chills, or night sweats. No unintentional weight loss reported. NEUROLOGICAL: Complain of generalized body weakness Denies headache, amaurosis fugax,, sensory deficit, vertigo/spinning sensation, gait abnormalities, or tremors. ENT: No hearing loss, otalgia, otorrhea, rhinitis, rhinorrhea, hoarseness, or sore throat. CARDIOVASCULAR: Denies any exertional angina, dyspnea on exertion, orthopnea, paroxysmal nocturnal dyspnea, palpitations, life-threatening arrhythmias, claudication. PULMONARY: Denies any shortness of breath, cough, phlegm/sputum, hemoptysis, pleuritic chest pain. SLEEP: Denies morning headaches, daytime somnolence or napping. Denies difficulty falling asleep, staying asleep, waking from sleep. Denies knowledge of snoring. GASTROINTESTINAL: Complain of loss of appetite Denies any type of dysphagia to either liquids or solids. Denies nausea, vomiting, pyrosis, early satiety, abdominal pain, diarrhea, constipation, or changes in stool consistency or caliber. Denies coffee-ground emesis, hematemesis, hematochezia, or melanotic stools. GENITOURINARY: Denies frequency, urgency, nocturia, hematuria or incontinence (Storage/Irritative symptoms.) Low urinary stream, straining to void, urinary intermittency or hesitancy, splitting of the voiding stream, terminal dribbling. ENDOCRINOLOGIC: Denies polyuria, polydipsia, polyphagia or heat/cold intolerances. HEMATOLOGIC: Denies thrombophilia/previous clots, or coagulopathy/bleeding disorders. ONCOLOGIC: Denies personal history of malignancy. DERMATOLOGIC: Denies rashes or pruritus. PSYCHIATRIC: Denies any suicidal or homicidal ideation. Denies hallucinations. PHYSICAL EXAM GENERAL APPEARANCE: The patient remains confused. Withdrawing to painful stimulation. NEUROLOGICAL: Cranial nerves II-XII grossly intact. Motor is 5/5 in bilateral upper and lower extremities proximal to distal. No sensory deficits. HEENT: Face is symmetric. Pupils are equal and reactive. Extraocular movements are intact. NECK: Supple. No JVD. No thyromegaly. No submental, submandibular, pre- /postauricular, occipital or supraclavicular lymphadenopathy. CHEST: Normal chest expansion. No Telemetry. LUNGS: Absence of any rales, rhonchi or any wheezing. CARDIOVASCULAR: Regular. S1 and S2 normal. No appreciable rubs, murmurs or gallops. ABDOMEN: Soft, nontender, and nondistended. There is no rebound, voluntary guarding, or rigidity. : Deferred. No Gallagher. EXTREMITIES: Non-edematous and not cyanotic. No clubbing. Good capillary refill. SKIN: No skin breakdown. Vital Signs (last 8hr) Date Time Temp Pulse Resp B/P (MAP) Pulse Ox O2 Delivery O2 Flow Rate FiO2 06/20/24 08:30 72 20 155/76 (102) 97 06/20/24 08:15 73 17 154/77 (102) 96 06/20/24 08:00 98.4 76 18 158/77 (104) 95 06/20/24 08:00 99 Nasal Cannula* 2 28 06/20/24 07:45 75 21 154/78 (103) 96 06/20/24 07:30 71 14 149/74 (99) 97 06/20/24 07:15 71 15 154/73 (100) 97 06/20/24 07:00 72 15 148/70 96 06/20/24 07:00 72 15 148/70 (96) 96 06/20/24 06:45 72 16 150/74 97 06/20/24 06:45 72 16 150/74 (99) 97 06/20/24 06:15 79 17 159/78 (105) 95 06/20/24 06:00 83 20 153/82 (105) 95 06/20/24 05:45 78 16 165/81 (109) 96 06/20/24 05:30 79 9 158/79 (105) 94 LABS: Laboratory: Test 06/20/24 12:19 06/20/24 09:10 06/20/24 05:43 06/20/24 04:00 Range/Units Whole Blood Glucose 108 70-110 MG/DL White Blood Count 8.4 4.8-10.8 K/uL Red Blood Count 2.59 #L 4.50-6.20 MIL/uL Hemoglobin 7.9 #L 14.0-18.0 g/dL Hematocrit 22.3 #L 42-54 % Mean Corpuscular Volume 86.1 79-99 fL Mean Corpuscular Hemoglobin 30.5 27.0-33.0 pg Mean Corpuscular Hemoglobin Concent 35.4 32.0-36.0 g/dL Red Cell Distribution Width 14.7 11.0-15.5 % Platelet Count 121 #L 130-400 K/uL Mean Platelet Volume 9.2 7.5-10.5 fL Nucleated Red Blood Cells 0.0 0.0-0.19 % Sodium Level 150 H 136-145 mmol/L Potassium Level 2.3 *L 3.5-5.1 mmol/L Chloride Level 110 101-111 mmol/L Carbon Dioxide Level 19 L 21-32 mmol/L Blood Urea Nitrogen 91 *H 7-18 mg/dL Creatinine 7.6 H 0.5-1.3 mg/dL Glomerular Filtration Rate Calc 7 >90 mL/min Random Glucose 176 H 70-105 mg/dL Total Calcium 6.4 L 8.5-10.1 mg/dL Magnesium Level 1.60 L 1.80-2.40 mg/dL Total Bilirubin 0.7 0.2-1.0 mg/dL Direct Bilirubin 0.2 0.0-0.3 mg/dL Aspartate Amino Transf (AST/SGOT) 40 H 10-37 U/L Alanine Aminotransferase (ALT/SGPT) 27 12-78 U/L Alkaline Phosphatase 86 50-136 U/L Lactate Dehydrogenase 299 H 81-234 U/L Total Protein 4.9 L 6.0-8.3 g/dL Albumin 1.8 L 3.5-5.0 g/dL Immature Granulocyte % (Auto) 0.7 0-1 % Neutrophils (%) (Auto) 86.5 H 40.0-77.0 % Lymphocytes (%) (Auto) 3.7 L 21.0-51.0 % Monocytes (%) (Auto) 8.9 3.0-13.0 % Eosinophils (%) (Auto) 0.1 0.0-8.0 % Basophils (%) (Auto) 0.1 0.0-5.0 % Neutrophils # (Auto) 6.5 1.8-7.7 K/uL Lymphocytes # (Auto) 0.3 L 1.0-4.8 K/uL Monocytes # (Auto) 0.7 0.1-1.0 K/uL Eosinophils # (Auto) 0.01 0.00-0.70 K/uL Basophils # (Auto) 0.01 0.00-0.20 K/uL Absolute Immature Granulocyte (auto 0.05 0-1 K/uL Reticulocyte Count (auto) 0.48858 L 0.42-2.23 % Immature Reticulocyte Fraction 2.00 H 0.18-0.48 % Prothrombin Time 14.1 H 9.6-11.6 SEC Prothromb Time International Ratio 1.37 H 0.85-1.15 Activated Partial Thromboplast Time 35.6 H 26.3-35.5 SEC Fibrinogen 346 180-350 mg/dL D-Dimer Quantitative (PE/DVT) 1328 *H 0-500 ng/mL Stool Occult Blood POSITIVE H NEGATIVE Test 06/19/24 07:24 06/19/24 04:44 06/18/24 14:34 Range/Units Blood Gas Specimen Type Arterial Arterial Blood pH 7.416 7.350-7.450 Arterial Blood Partial Pressure CO2 37 35-48 mmHg Arterial Blood Partial Pressure O2 81.5 L 83.0-108.0 mmHg Arterial Blood HCO3 23.1 21.0-28.0 mmol/L Arterial Blood Oxygen Saturation 94.6 94.0-98.0 % Arterial Blood Base Excess -1.3 -2.0-3.0 mmol/L Hemoglobin (Blood Gas) 7.5 L 13.5-17.5 g/dL Sodium (Blood Gas) 144 136-145 MMOL/L Bedside Potassium (Blood Gas) 3.1 L 3.4-4.5 MMOL/L Bedside Chloride (Blood Gas) 103 98-107 MMOL/L Bedside Glucose (Blood Gas) 110 H 65-95 MG/DL Bedside Ionized Calcium (Blood Gas) 0.96 L 1.15-1.33 MMOL/L Bedside Lactic Acid (Blood Gas) 4.67 *H 0.36-0.75 MMOL/L Blood Gas Temperature 37.0 35.5-37.0 CELSIUS Blood Gas Flow-by 2.00 0.00-15.00 L/min Blood Gas Vent Mode 2L NC ROOM AIR FiO2 28.0 % Blood Gas Specimen Comment MAURO [place] Phosphorus Level 5.8 H 2.5-4.9 mg/dL Iron Level 75 65-175 mcg/dL Total Iron Binding Capacity 94 L 250-450 mcg/dL Percent Iron Saturation 79.7 H 30-44 % Lactic Acid Level 8.2 H 0.8-2.5 mmol/L Current Medications Medications (Trade) Dose Ordered Sig/Roderick Route PRN Reason Start Time Stop Time Status Last Admin Dose Admin Albuterol Sulfate (Proventil 0.083% 2.5mg/3ml) 10 mg ONCE STAT IH 06/17/24 04:05 06/17/24 04:12 DC 06/17/24 04:31 10 MG Calcium Gluconate (Calcium Gluc 1gm Vial) 1 gm AD STAT IV 06/17/24 04:05 06/17/24 04:12 DC 06/17/24 04:21 1 GM Cefepime HCl (MAXipime 1 GM vial) 0.25 gm Q24H IVPB 06/17/24 04:00 06/18/24 04:06 DC 06/17/24 04:58 0.25 GM Cefepime HCl (MAXipime 1 GM vial) 1 gm Q24H IVPB 06/20/24 05:00 06/30/24 04:59 06/20/24 04:45 1 GM Cefepime HCl 0.25 gm/Sodium Chloride 50 ml @ 100 mls/hr Q24H IVPB 06/18/24 04:30 06/19/24 10:58 DC 06/19/24 05:26 100 MLS/HR Dextrose (D50w) 50 ml AD PRN IV HYPOGLYCEMIA PROTOCOL 06/17/24 01:00 06/17/24 01:01 DC Dextrose (D50w) 50 ml AD PRN IV HYPOGLYCEMIA PROTOCOL 06/17/24 01:00 07/17/24 00:59 Dextrose (D50w) 50 ml ONCE STAT IV 06/17/24 04:05 06/17/24 04:12 DC 06/17/24 04:21 50 ML Famotidine (Pepcid 20mg Vial) 20 mg Q48H IV 06/17/24 01:00 07/17/24 00:59 06/19/24 00:40 20 MG Furosemide (LASix 40MG VIAL) 40 mg Q8H IV 06/19/24 18:30 06/20/24 18:31 06/20/24 08:16 40 MG Glucagon (Glucagon 1mg Kit) 1 mg AD PRN IM HYPOGLYCEMIA PROTOCOL 06/17/24 01:00 06/17/24 01:01 DC Glucagon (Glucagon 1mg Kit) 1 mg AD PRN IM HYPOGLYCEMIA PROTOCOL 06/17/24 01:00 07/17/24 00:59 Hydrocortisone Sodium Succinate (Solu-corTEF 100MG) 50 mg Q8H IV 06/18/24 11:30 07/18/24 11:29 06/20/24 12:17 50 MG Hydromorphone HCl (DiLAUDid 0.5MG INJ) 0.5 mg Q4H PRN IVP SEVERE PAIN (7-10) 06/20/24 13:00 06/25/24 12:59 06/20/24 12:50 0.5 MG Insulin Human Regular (humuLIN R 100 UNIT/ML 3ML) 10 unit ONCE STAT IV 06/17/24 04:05 06/17/24 04:12 DC 06/17/24 04:28 10 UNIT Insulin Human Regular (humuLIN R 100 UNIT/ML 3ML) INSULIN SLIDING SCAL... ACHS SQ 06/17/24 07:30 07/17/24 07:29 Leptospermum Honey (Medihoney) 1 appl DAILY TP 06/19/24 09:00 07/19/24 08:59 06/20/24 08:16 1 APPL Metronidazole/ Sodium Chloride (flaGYL) 500 mg Q8H IV 06/17/24 05:00 06/27/24 04:59 06/20/24 12:20 500 MG Micafungin Sodium 100 ml @ 100 mls/hr Q24H IV 06/18/24 00:00 07/18/24 00:00 06/19/24 23:39 100 MLS/HR Norepinephrine 250 ml @ 0 mls/hr PROTOCOL IV 06/16/24 22:00 07/16/24 21:59 06/17/24 05:33 24.5 MLS/HR Pharmacy Profile Note (Lace Assessment) 1 each AD MISC 06/19/24 15:30 06/20/24 12:49 DC Pharmacy Profile Note (Pharmacy Communication) 1 each ONCE MISC 06/17/24 23:00 06/19/24 07:13 DC 06/17/24 23:31 1 EACH Phenylephrine HCl 100 mg/Sodium Chloride 250 ml @ 0 mls/hr AD PRN IV TITRATE 06/17/24 10:30 07/17/24 10:29 06/18/24 05:48 27 MLS/HR Piperacillin Sod/ Tazobactam Sod (Zosyn 3.375gm+NS 50ml) 3.375 gm Q12H IV 06/16/24 21:30 06/17/24 01:03 DC 06/16/24 21:42 3.375 GM Piperacillin Sod/ Tazobactam Sod (Zosyn 3.375gm+NS 50ml) 3.375 gm Q12H IVPB 06/17/24 01:00 06/17/24 04:00 DC 06/17/24 02:54 3.375 GM Sodium Bicarbonate / Dextrose 1,000 ml @ 0 mls/hr Q0M IVP 06/17/24 05:00 06/17/24 04:58 DC Sodium Bicarbonate 150 meq/Dextrose 1,150 ml @ 50 mls/hr Q23H IVP 06/18/24 08:00 06/19/24 12:24 DC 06/18/24 20:23 100 MLS/HR Sodium Bicarbonate 150 meq/Dextrose 1,150 ml @ 100 mls/hr [id number] IVP 06/17/24 05:00 06/18/24 04:44 DC 06/17/24 21:00 100 MLS/HR Sodium Polystyrene Sulfonate (kayEXALate 15 GM/60 ML) 15 gm Q2H PO 06/16/24 21:30 06/16/24 23:31 DC 06/16/24 22:21 15 GM Sodium Chloride 1,000 ml @ 150 mls/hr Q6H40M IV 06/16/24 23:00 06/17/24 09:10 DC 06/17/24 05:15 150 MLS/HR Sodium Chloride (NS 50ml) 50 ml AD IV 06/17/24 01:00 06/17/24 01:05 DC Thiamine HCl (Vitamin B-1) 100 mg DAILY IVP 06/17/24 09:00 07/17/24 08:59 06/20/24 08:16 100 MG Vancomycin HCl (Vancomycin 750mg) 750 mg Q96H IVPB 06/20/24 22:00 06/17/24 14:00 DC Vancomycin HCl (Vancomycin Protocol) 1 each AD IV 06/17/24 01:30 06/17/24 14:01 DC DIAGNOSTICS / RADIOLOGY: [ ] ASSESSMENT: Severe metabolic acidosis POA Septic shock requiring vasopressor, resolved POA Fungemia Acute on chronic renal failure POA Hyperkalemia POA Chronic anemia POA Acute thrombocytopenia POA Failure to thrive POA Acute encephalopathy, improving DM2 last A1c unknown Dyslipidemia Peripheral artery disease Osteomyelitis with recent 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 Continue the patient on broad-spectrum IV antibiotics, continue micafungin. Continue to follow Nephrology input recommendation terms of renal replacement therapy Continue furosemide GI consulted, appreciate recommendations Hematology consulted, appreciate recommendations Anemia workup. Transfuse as needed. Hematology consultation requested per Follow critical care input and recommendation Disposition: Pending improvement in clinical status Greater than 35 minutes ICUt julian spent in care of patient AL CARDONA MD Jun 20, 2024 13:38
[2024-06-20 14:23] LABS: HEMATOCRIT 22.5 % (42-54); MEAN CORPUSCULAR HEMOGLOBIN 30.9 pg (27.0-33.0); MEAN CORPUSCULAR HGB CONC 35.6 g/dL (32.0-36.0); MEAN CORPUSCULAR VOLUME 86.9 fL (79-99); RED BLOOD CELL COUNT(AUTO) 2.59 MIL/uL (4.50-6.20); RED CELL DISTRIBUTION WIDTH 14.6 % (11.0-15.5); WHITE BLOOD COUNT (AUTO) 7.7 K/uL (4.8-10.8)
--- NOTE | 2024-06-20 17:49 | PN ---
[facility] PROGRESS NOTE Date Patient Seen: Jun 20, 2024 Time of Visit: 17:47 Supervising Physician: Dr. Glasgow Primary Care Physician: [None-recently relocated from [place]] Outpatient Specialists: [ ] Inpatient Consults: [facility] team, nephro: Dr. Dowd, cardio: Dr. Bae] PROBLEM LIST: Septic shock, requiring pressor-POA Acute encephalopathy; likely multifactorial infectious, uremic and toxic metabolic-POA Severe metabolic acidosis-POA Acute renal failure, severe-POA Uremia-POA Severe hyperkalemia-POA Resolved Thrombocytopenia-POA Severe lactic acidosis-POA NSTEMI, rule-out demand ischemia vs true cardiac etiology-POA INTERVAL HISTORY: 06/17/2024: At the time of my evaluation, the patient was lying in bed. He is generally confused and critically ill appearing. Currently on the monitor the p atient is borderline hypotensive 91/35 and a heart rate of 110 and respiratory rate of 26. The patient remains on a nasal cannula for oxygen supplementation. Laboratory data was significant for a WBC of 14.2, H&H 8.4/27.0 and a platelet count of 28. Chemistry panel showed sodium of 143, potassium 5.0, chloride is 104, CO2 of five, BUN 107, creatinine of 9.7 and a GFR of five. Anion gap of 34, lactic acid 9.1 and procalcitonin of 0.60. ABG this a.m. showed a pH of 6.87, pCO2 less than 15, PO2 138.9 and HC03 of 2.3. I currently do not see any preliminary microbiology data. CT of the abdomen, showed mild enterocolitis, cholelithiasis and urinary bladder wall thickening. The patient was started on antibiotic coverage with vancomycin, cefepime and Flagyl. The patient is also on pressor therapy with phenylephrine and is also on a bicarb drip. No other complaint. 06/18/2024: At the time of my evaluation, the patient was lying in bed. He is more awake today. Family members were present at the bedside. On the monitor, the vital signs are hemodynamically stable. Laboratory data today showed a interval increase of WBC to 16.4, H&H 8.2/23.7 and a platelet count of 27. Chemistry panel today was notable for a CO2 of 13 with a anion gap of 28, BUN 105, creatinine of 10.2 and a GFR of 5, lactic acid of 8.2. Total protein of 5.9 and albumin of 2.3. ABG today showed a pH of 7.33, pCO2 31, PO2 of 64.5, HC03 of 16.1 and a base excess of -8.5. Over the past 24 hours, urine output average was 0.07 mL/kg/hour and has a positive balance of 3683.1. Preliminary blood culture vial 1/2 was showing budding yeast, vial 2 was showing no growth. Overnight, the patient was started on micafungin continued on cefepime and Flagyl. No other complaint. 06/19/2024: At the time of my evaluation, the patient is lying in bed. The staff nurse reports no acute events overnight. On the monitor, the patient remains hemodynamically stable and on nasal cannula for oxygen supplementation. On ABG, the patient had a pH of 7.41, pCO2 37, PO2 81.5 and a HC03 of 23.1 with a base excess of -1.3. On ABG, lactic acid of 4.67. Laboratory data today showed improved WBC count to 11.2, H&H 7.6/20.9 and a platelet count of 14. Chemistry panel showed sodium of 148, potassium of 3.2, chloride is 105, CO2 25, BUN of 108, creatinine of 10.2 and a GFR of five. Magnesium of 1.90. Troponin of 5.7 and albumin of 2.1. Chest x-ray obtained today showed stable cardiomegaly. The patient continues on antibiotic coverage with cefepime and micafungin. The patient also continues on the bicarb drip and was started on Lasix overnight. No other complaint. 06/20/2024: At the time of my evaluation, the patient is lying in bed. He is more awake today and verbally interactive. Family members are present at the bedside. On the monitor, the patient is hemodynamically stable except for hypertension and continues on nasal cannula for oxygen support. Laboratory data today shows a WBC 8.4, H&H 7.9/22.3 and a platelet count of 121. Chemistry panel showed a sodium count of 150, potassium of 2.3, chloride is 110, CO2 of 19, BUN of 91, creatinine of 7.6 and a GFR of seven. Total calcium of 6.4, magnesium of 1.60. Lactic dehydrogenase of 299. Total protein of 4.9 and albumin of 1.8. PT 14.1, INR 1.37, PTT of 35.6 fibrinogen of 346 and D-dimer of 1328. Stool for occult blood was again positive. No chest imaging for review today. The patient remains on Lasix injection and with improved urinary output. I&O showed a urinary output of 2250 mL with a balance of -38.3. Also, patient continues on antibiotic therapy with cefepime, Flagyl and micafungin. No new complaint. REVIEW OF SYSTEMS: Unable to perform 12 point ROS due to patient's encephalopathy. PHYSICAL EXAM: GENERAL: Awake, Alert. Generally weak HEENT: Normocephalic, atraumatic, dry mucosa NECK: Supple, no JVD, trachea midline LUNGS: Clear breath sounds bilaterally. No wheezes HEART: Regular rate and rhythm. Normal S1 and S2, positive murmurs , tachycardic ABD: Abdomen soft, nontender. Bowel sounds present EXT: No clubbing, cyanosis, or edema, bilateral feet wound with toe amputations with dressing CDI NEURO: Deferred Vital Signs (last 8hr) Date Time Temp Pulse Resp B/P (MAP) Pulse Ox O2 Delivery O2 Flow Rate FiO2 06/20/24 16:00 99 Nasal Cannula* 2 28 06/20/24 15:35 64 12 99 06/20/24 15:35 64 12 99 06/20/24 15:30 62 12 167/82 (110) 99 06/20/24 15:30 62 12 167/82 99 06/20/24 15:20 63 12 99 06/20/24 15:20 63 12 99 06/20/24 15:15 61 14 167/84 99 06/20/24 15:15 61 14 167/84 (111) 99 06/20/24 15:05 63 12 99 06/20/24 15:05 63 12 99 06/20/24 15:00 60 13 161/85 99 06/20/24 15:00 60 13 161/85 (110) 99 06/20/24 14:50 65 12 99 06/20/24 14:50 65 12 99 06/20/24 14:45 59 11 153/80 99 06/20/24 14:45 59 11 153/80 (104) 99 06/20/24 14:35 62 13 99 06/20/24 14:35 62 13 99 06/20/24 14:30 62 13 154/82 99 06/20/24 14:30 62 13 154/82 (106) 99 06/20/24 14:20 65 13 99 06/20/24 14:20 65 13 99 06/20/24 14:15 60 13 150/74 99 06/20/24 14:15 60 13 150/74 (99) 99 06/20/24 14:05 61 12 99 06/20/24 14:05 61 12 99 06/20/24 14:00 62 13 158/82 (107) 98 06/20/24 14:00 62 13 158/82 98 06/20/24 13:50 61 13 99 06/20/24 13:50 61 13 99 06/20/24 13:45 61 13 147/75 99 06/20/24 13:45 61 13 147/75 (99) 99 06/20/24 13:35 62 12 99 06/20/24 13:35 62 12 99 06/20/24 13:30 62 13 150/72 99 06/20/24 13:30 62 13 150/72 99 06/20/24 13:30 62 13 150/72 (98) 99 06/20/24 13:20 64 12 99 06/20/24 13:20 64 12 99 06/20/24 13:15 65 13 151/72 99 06/20/24 13:00 63 13 152/77 97 06/20/24 13:00 63 13 152/77 (102) 97 06/20/24 12:45 74 16 157/66 (96) 99 06/20/24 12:45 74 16 157/66 99 06/20/24 12:30 74 8 153/70 (97) 96 06/20/24 12:30 74 15 153/70 96 06/20/24 12:15 74 15 161/74 (103) 96 06/20/24 12:15 74 15 161/74 96 06/20/24 12:00 99 Nasal Cannula* 2 28 06/20/24 12:00 74 18 158/70 (99) 97 06/20/24 12:00 74 18 158/70 97 06/20/24 11:45 80 11 166/71 (102) 95 06/20/24 11:45 80 11 166/71 95 06/20/24 11:30 70 16 159/71 (100) 97 06/20/24 11:30 70 16 159/71 97 06/20/24 11:30 70 16 159/71 97 06/20/24 11:15 70 15 157/74 98 06/20/24 11:15 70 15 157/74 (101) 98 06/20/24 11:00 70 16 170/78 98 06/20/24 11:00 70 16 170/78 (108) 98 06/20/24 10:45 70 16 161/75 (103) 98 06/20/24 10:45 70 16 161/75 98 06/20/24 10:30 76 15 162/73 (102) 95 06/20/24 10:30 76 15 162/73 95 06/20/24 10:15 74 23 161/75 95 06/20/24 10:15 74 23 161/75 (103) 95 06/20/24 10:00 75 15 154/84 96 06/20/24 10:00 75 15 154/84 (107) 96 LABS: Hematology Labs: Test 06/20/24 14:15 06/20/24 05:43 Range/Units White Blood Count 7.7 4.8-10.8 K/uL Red Blood Count 2.59 L 4.50-6.20 MIL/uL Hemoglobin 8.0 L 14.0-18.0 g/dL Hematocrit 22.5 L 42-54 % Mean Corpuscular Volume 86.9 79-99 fL Mean Corpuscular Hemoglobin 30.9 27.0-33.0 pg Mean Corpuscular Hemoglobin Concent 35.6 32.0-36.0 g/dL Red Cell Distribution Width 14.6 11.0-15.5 % Platelet Count 117 L 130-400 K/uL Mean Platelet Volume 9.8 7.5-10.5 fL Nucleated Red Blood Cells 0.0 0.0-0.19 % Immature Granulocyte % (Auto) 0.7 0-1 % Neutrophils (%) (Auto) 86.5 H 40.0-77.0 % Lymphocytes (%) (Auto) 3.7 L 21.0-51.0 % Monocytes (%) (Auto) 8.9 3.0-13.0 % Eosinophils (%) (Auto) 0.1 0.0-8.0 % Basophils (%) (Auto) 0.1 0.0-5.0 % Neutrophils # (Auto) 6.5 1.8-7.7 K/uL Lymphocytes # (Auto) 0.3 L 1.0-4.8 K/uL Monocytes # (Auto) 0.7 0.1-1.0 K/uL Eosinophils # (Auto) 0.01 0.00-0.70 K/uL Basophils # (Auto) 0.01 0.00-0.20 K/uL Absolute Immature Granulocyte (auto 0.05 0-1 K/uL Reticulocyte Count (auto) 0.53025 L 0.42-2.23 % Immature Reticulocyte Fraction 2.00 H 0.18-0.48 % Chemistry Labs: Test 06/20/24 15:57 06/20/24 09:10 06/19/24 04:44 Range/Units Whole Blood Glucose 125 H 70-110 MG/DL Sodium Level 150 H 136-145 mmol/L Potassium Level 2.3 *L 3.5-5.1 mmol/L Chloride Level 110 101-111 mmol/L Carbon Dioxide Level 19 L 21-32 mmol/L Blood Urea Nitrogen 91 *H 7-18 mg/dL Creatinine 7.6 H 0.5-1.3 mg/dL Glomerular Filtration Rate Calc 7 >90 mL/min Random Glucose 176 H 70-105 mg/dL Total Calcium 6.4 L 8.5-10.1 mg/dL Magnesium Level 1.60 L 1.80-2.40 mg/dL Total Bilirubin 0.7 0.2-1.0 mg/dL Direct Bilirubin 0.2 0.0-0.3 mg/dL Aspartate Amino Transf (AST/SGOT) 40 H 10-37 U/L Alanine Aminotransferase (ALT/SGPT) 27 12-78 U/L Alkaline Phosphatase 86 50-136 U/L Lactate Dehydrogenase 299 H 81-234 U/L Total Protein 4.9 L 6.0-8.3 g/dL Albumin 1.8 L 3.5-5.0 g/dL Phosphorus Level 5.8 H 2.5-4.9 mg/dL Iron Level 75 65-175 mcg/dL Total Iron Binding Capacity 94 L 250-450 mcg/dL Percent Iron Saturation 79.7 H 30-44 % Coagulation Labs: Test 06/20/24 05:43 Range/Units Prothrombin Time 14.1 H 9.6-11.6 SEC Prothromb Time International Ratio 1.37 H 0.85-1.15 Activated Partial Thromboplast Time 35.6 H 26.3-35.5 SEC Fibrinogen 346 180-350 mg/dL D-Dimer Quantitative (PE/DVT) 1328 *H 0-500 ng/mL DIAGNOSTICS / RADIOLOGY RESULTS: [ ] PLAN 06/17/2024: For now, we are going to continue current management for the patient. We will continue on oxygenation supplementation and adjust as necessary. The patient will continue on pressor therapy and bicarb drip. He will remain on antibiotic therapy regimen currently with vanco, Flagyl and cefepime. I am going to request a random cortisol level and we will positively start the patient on hydrocortisone. We will repeat surveillance labs in the morning. We will follow the flour worker's recommendation and management. We will continue to monitor the patient's progress and response to management. We will continue to provide general supportive care, GI and DVT prophylaxis. Further orders per attending MD and hospital course. 06/18/2024: For now, going to continue current management for the patient. We will continue aggressive antibiotic therapy as ordered and we will follow the culture results. I am going to challenge the patient with Lasix in efforts of improving urinary output. I am going to decrease the bicarb drip from 100 mL/hour to 50 mL/hour to avoid fluid volume overload given the patient's urinary output is minimal. I am going to request a chest x-ray now for evaluation of the lung field. We will also repeat a chest x-ray in a.m. as well as surveillance labs. Nephrology discuss with the family members regarding starting hemodialysis therapy with a goal of starting his therapy tomorrow. Unfortunately at this time a dialysis catheter can not be inserted due to the platelet count. We will need to give the patient platelets andFFP's in preparation for the hemodialysis catheter insertion. We will monitor the patient's progress and response to management. We will continue to provide general supportive care, GI and DVT prophylaxis. Further orders per attending MD and hospital course. 06/19/2024: For now, going to continue current management for the patient. He was started on Lasix overnight which I am going to continue with Lasix 60 mg IV x1 dose then 40 mg IV Q8 hours x4 doses. I am going to go ahead and stop the bicarb drip. Because of the drop in H&H and platelet count, we will consult the hematologists and order DIC workup. I had an at length discussion with the family members including the RP present at the bedside regarding the acuity of his condition, the recommendation of the flour worker for hemodialysis with need for hemodialysis catheter insertion. After an at length discussion, the family members opted against hemodialysis for now and we will be discussing amongst themselves regarding goals of care. We will follow up with the patient at a later time to inquire in the goals of care. We will continue to correct the electrolytes as necessary. We will monitor the patient's progress and response to management. We will continue to provide general supportive care, GI and DVT prophylaxis. Further orders per attending MD and hospital course. 06/20/2024: For now, we are going to continue current management for the patient. Going to continue Lasix as ordered, I am going to recheck the potassium level and we will supplement if necessary as well as all other electrolytes. We will continue antibiotic therapy as ordered. Gastroenterology was consulted due to the positive FOBT. We will monitor the patient's progress and response to management. We will follow the recommendation of the treating specialist. We will repeat surveillance labs in the morning. We will continue to provide general supportive care, GI and DVT prophylaxis. Further orders per attending MD and hospital course. NEURO: Minimize central acting medications as possible. Fall Precautions. Well lighted room through the day and minimize interruptions through the night to prevent acute delirium. PULMONARY: Supplemental 02 as needed Titrate Fio2 to keep Spo2 > or = 90% DuoNeb�s and CPT as needed IS hourly while awake for pulmonary hygiene Out of bed to chair as tolerated VAP Bundle CARDIOVASCULAR: Follow hemodynamics. Titrate vasopressor to keep MAP >65 or systolic blood pressure >95mmHg DIPS: LINES: PIV's GI & NUTRITION: Continue nutritional support Aspirations precautions Prokinetic agents and laxatives as needed KIDNEYS & ELECTROLYTES: Strict monitoring of intake and output Daily weights Avoid nephrotoxic agents Monitor electrolytes and replace as needed Goal urine output of 30mL/hr or 0.5mL/kg/hr Urine output: [ ] Fluid Balance: [ ] ENDOCRINE: Maintain blood glucose between 100-180 at all times. Insulin sliding scale for blood glucose management INFECTIOUS DISEASE: Trend temperature. Rosenberg-culture if febrile. Micro: [ ] Antibiotics: Cefepime and Mycafungin HEMATOLOGY & COAGULATION: Monitor H&H. Keep Hgb > 7 Transfuse 1 unit of PRBC for Hgb < 7 Transfuse 1 pack of platelets of platelets < 20, 000 Watch for any signs and symptoms of bleeding SKIN: Pressure ulcer prevention per facility protocol Rehab: PT/OT Prophylaxis: GI: Famotidine DVT: SCD Code Status: Full Resuscitation Disposition: ICU Other: I personally spent more than 100 minutes of critical care time in treatment of this patient. This includes patient management time at bedside, multiple re- visits. time reviewing tests, labs, appropriate images and studies, [facility] members and patient care coordination. This time excludes separately billable procedures. Case was discussed and seen with my supervising physician. The above plan was formulated and agreed upon. LALI BOLDEN NP Jun 20, 2024 17:49
[2024-06-20 18:48] LABS: POTASSIUM 3.1 mmol/L (3.5-5.1)
[2024-06-20 19:09] LABS: CREATININE 9.9 mg/dL (0.5-1.3)
[2024-06-20] MEDS ORDERED: VANCOMYCIN 750MG VIAL IVPB SCH (22:00)
--- NOTE | 2024-06-20 22:30 | NUR ---
report given and care endorsed to Jad OSPINA
--- NOTE | 2024-06-20 22:33 | PN ---
INFECTIOUS DISEASE FOLLOWUP NOTE DATE OF SERVICE: 06/20/2024 SUBJECTIVE: The patient is seen and examined at beside today. No fever or chills. The patient is awake and alert. No nausea, vomiting, or abdominal pain. Hemoglobin level is better after transfusion. No neck pain or neck swelling. No dysuria or hematuria. The patient is on diuretics and is making a lot of urine. PHYSICAL EXAMINATION: VITAL SIGNS: Temperature today is 98.9. EYES: No icterus. Pupils equal and reactive. HENT: No oral thrush seen. Moist oral mucosa. NECK: Supple. No JVD or thyromegaly. LUNGS: Good air entry. No rales. No rhonchi. CARDIOVASCULAR: S1 and S2, regular. No murmur heard. ABDOMEN: Soft and nontender. Bowel sound is present. CENTRAL NERVOUS SYSTEM: Awake, alert, and oriented x 3. No focal deficits. SKIN: No rashes. No itchiness. LYMPHATIC: No peripheral lymphadenopathy. BACK: No deformity. No pressure ulcer. MUSCULOSKELETAL: No joint swelling, erythema, or tenderness. LABORATORY DATA: Sodium 150, potassium 2.3. BUN 81, creatinine 7.6. ASSESSMENT: A 69-year-old male admitted with ____. Current problems include: * Septic shock. * Anemia, status post transfusion. * Acute renal failure. * Fungemia. * Hypokalemia. * Debility. PLAN: * Continue micafungin. * Continue cefepime. * Continue doxycycline. * Continue nutritional support. * Continue GI prophylaxis. * Monitor electrolytes. * The patient will be followed up closely. TID: [id number] RECEIPT: [id number]
[2024-06-21] VITALS (25 sets, daily range): BP systolic 137–170; BP diastolic 56–90; PULSE 56–93; RESP 12–32; TEMP 98–98.7; O2SAT 96–99
[2024-06-21 04:25] LABS: HEMATOCRIT 25.4 % (42-54); MEAN CORPUSCULAR HEMOGLOBIN 30.2 pg (27.0-33.0); MEAN CORPUSCULAR HGB CONC 34.3 g/dL (32.0-36.0); MEAN CORPUSCULAR VOLUME 88.2 fL (79-99); RED BLOOD CELL COUNT(AUTO) 2.88 MIL/uL (4.50-6.20); RED CELL DISTRIBUTION WIDTH 15.1 % (11.0-15.5); WHITE BLOOD COUNT (AUTO) 7.9 K/uL (4.8-10.8)
[2024-06-21 04:48] LABS: ALBUMIN 2.4 g/dL (3.5-5.0); BILIRUBIN,TOTAL 0.7 mg/dL (0.2-1.0); MAGNESIUM 2.1 mg/dL (1.80-2.40); PHOSPHORUS 7.5 mg/dL (2.5-4.9); TOTAL PROTEIN, SERUM 6.3 g/dL (6.0-8.3)
[2024-06-21 05:03] LABS: CREATININE 9.9 mg/dL (0.5-1.3)
--- NOTE | 2024-06-21 06:43 | NUR ---
DOWNGRADE SPOKE TO DR. CARDONA REGARDING DOWNGRADE TO PCCU. HE REQUESTED THAT THE INPATIENT CODER MAKE THAT DECISION.
--- NOTE | 2024-06-21 06:47 | NUR ---
DOWNGRADE SPOKE TO [employer]--STATES THAT THE DAY SHIFT WILL BE AVAILABLE SOON AND TO CONTACT THEM
[2024-06-21] MEDS: PoTASSium chloRIDE 10MEQ/100ML 100 ML IV PRN (09:41)
[2024-06-21] MEDS: LACTATED RINGERS 1000ML 1,000 ML IV SCH (09:42)
--- NOTE | 2024-06-21 12:11 | PN ---
[facility] PROGRESS NOTE Date of Service: Jun 21, 2024 Time of Service: 12:04 SUBJECTIVE: Patient is seen and examined at bedside, case discussed with the RN, during my visit the patient resting comfortably in bed, following simple commands, he is on blood pressure support with Levophed, getting sodium bicarbonate IV. BP 108/57, heart rate of 116, saturating 99% on 2 L nasal cannula. Hemoglobin 8.4, hematocrit 27.0, WBC 14.2, platelet count of 28. Sodium 143, potassium 5.0, bicarb of five, BUN 107, creatinine 9.7. ABG with pH of 7.8, pCO2 less than 15, bicarb of 2.3. 06/18 patient has been seen and examined at bedside, case discussed with the RN, patient remains confused, still on pressor support with Levophed and Andrew- Synephrine, patient also on sodium bicarbonate drip. No family members at bedside during my visit. Blood pressure 112/44, heart rate of 91, saturating 93%. CBC with WBC of 16.4, hemoglobin 8.2, hematocrit 23.7, platelet count of 27. Sodium 145, potassium 3.7, BUN of 102, creatinine 10.2, sodium bicarb of 12. ABG with pH of 7.33, pCO2 31, PO2 64, bicarb of 16.1. Septic workup reviewed, blood cultures no growth after 24 hours. Patient getting broad- spectrum IV antibiotics during my visit. CT of the abdomen pelvis probable mild enterocolitis with mild to moderate small and large bowel liquid content, cholelithiasis, urinary wall thickening, more than expected for empty urinary bladder. Mild distal colonic diverticulosis. 06/19 patient is seen and examined at bedside, case discussed with the RN, no acute events overnight, patient is still confused, however less compared to time of admission. Following very simple commands. He is currently off vasopressors. Replace, output since this morning 500 cc. Blood pressure 111/78, afebrile, saturating 96-98% 2 L nasal cannula. WBC trending down at 11.2, hemoglobin 7.6, hematocrit 20.9, platelet count of 14. BUN 108, creatini ne 10.2. ABG shows a pH 7.41, pCO2 37, PO2 81.5, bicarb 23.1. Blood culture showing Alicia tropicalis. Patient has been started on micafungin. Continue antibiotics. Continue critical care input and recommendation, continue Nephrology input and recommendation in terms of renal replacement therapy, continue daily weight, monitor intake and output. Follow anemia workup, stool o ccult blood, serial CBC transfuse 1 unit of PRBC hemoglobin less than seven, we will request Hematology consultation as well. 06/20 patient seen at bedside, no acute events overnight. He is not requiring pressors he is afebrile, hemodynamically stable saturating well on 2 L nasal cannula. Hemoglobin was 6.1 and platelets low at night, we will be transfused with packed red blood cells and platelets per critical Care, we will follow up post transfusion. Potassium decreased from 3.4 down to 3.2, creatinine stable at 10.2, we will follow up with Nephrology for recommendations. Urine output is improving, he has been started on Lasix, we will follow up. Patient continues on micafungin. Pt reticulocyte count low at 0.18 suggesting decreased production of RBC, FOBT positive as well concerning for GI Bleed. Will consult hematology and GI and follow up 06/21 patient seen at bedside, no acute events overnight. He has been afebrile, hemodynamically stable saturating well on 2 L nasal cannula. He has been NPO however he has no history of volume overload, and his kidney function is decreased, we will perfuse his kidneys with some IV fluids and allow clear liquid diet. Creatinine stable at 9.9, same as yesterday, potassium decreased at 3.0, nephrology to manage potassium levels until renal function improves. Hemoglobin improved from 8.0 up to 8.7, remainder of his labs are relatively unremarkable. REVIEW OF SYSTEMS CONSTITUTIONAL: Denies fevers, chills, or night sweats. No unintentional weight loss reported. NEUROLOGICAL: Complain of generalized body weakness Denies headache, amaurosis fugax,, sensory deficit, vertigo/spinning sensation, gait abnormalities, or tremors. ENT: No hearing loss, otalgia, otorrhea, rhinitis, rhinorrhea, hoarseness, or sore throat. CARDIOVASCULAR: Denies any exertional angina, dyspnea on exertion, orthopnea, paroxysmal nocturnal dyspnea, palpitations, life-threatening arrhythmias, claudication. PULMONARY: Denies any shortness of breath, cough, phlegm/sputum, hemoptysis, pleuritic chest pain. SLEEP: Denies morning headaches, daytime somnolence or napping. Denies difficu lty falling asleep, staying asleep, waking from sleep. Denies knowledge of snoring. GASTROINTESTINAL: Complain of loss of appetite Denies any type of dysphagia to either liquids or solids. Denies nausea, vomiting, pyrosis, early satiety, abdominal pain, diarrhea, constipation, or changes in stool consistency or caliber. Denies coffee-ground emesis, hematemesis, hematochezia, or melanotic stools. GENITOURINARY: Denies frequency, urgency, nocturia, hematuria or incontinence (Storage/Irritative symptoms.) Low urinary stream, straining to void, urinary intermittency or hesitancy, splitting of the voiding stream, terminal dribbling. ENDOCRINOLOGIC: Denies polyuria, polydipsia, polyphagia or heat/cold intolerances. HEMATOLOGIC: Denies thrombophilia/previous clots, or coagulopathy/bleeding disorders. ONCOLOGIC: Denies personal history of malignancy. DERMATOLOGIC: Denies rashes or pruritus. PSYCHIATRIC: Denies any suicidal or homicidal ideation. Denies hallucinations. PHYSICAL EXAM GENERAL APPEARANCE: The patient remains confused. Withdrawing to painful stimulation. NEUROLOGICAL: Cranial nerves II-XII grossly intact. Motor is 5/5 in bilateral upper and lower extremities proximal to distal. No sensory deficits. HEENT: Face is symmetric. Pupils are equal and reactive. Extraocular movements are intact. NECK: Supple. No JVD. No thyromegaly. No submental, submandibular, pre- /postauricular, occipital or supraclavicular lymphadenopathy. CHEST: Normal chest expansion. No Telemetry. LUNGS: Absence of any rales, rhonchi or any wheezing. CARDIOVASCULAR: Regular. S1 and S2 normal. No appreciable rubs, murmurs or gallops. ABDOMEN: Soft, nontender, and nondistended. There is no rebound, voluntary guarding, or rigidity. : Deferred. No Gallagher. EXTREMITIES: Non-edematous and not cyanotic. No clubbing. Good capillary refill. SKIN: No skin breakdown. Vital Signs (last 8hr) Date Time Temp Pulse Resp B/P (MAP) Pulse Ox O2 Delivery O2 Flow Rate FiO2 06/21/24 11:00 98.4 06/21/24 08:00 99 Nasal Cannula* 2 28 06/21/24 07:00 98.1 06/21/24 06:00 75 16 153/70 99 Nasal Cannula 2.0 06/21/24 05:45 77 19 168/70 98 Nasal Cannula 2.0 06/21/24 05:30 76 17 153/80 99 Nasal Cannula 2.0 06/21/24 05:00 77 12 155/72 99 Nasal Cannula 2.0 06/21/24 04:30 75 16 147/75 100 Nasal Cannula 2.0 LABS: Laboratory: Test 06/21/24 11:05 06/21/24 04:11 06/20/24 09:10 06/20/24 05:43 Range/Units Whole Blood Glucose 154 H 70-110 MG/DL Bedside Glucose Comment Notified Nurse White Blood Count 7.9 4.8-10.8 K/uL Red Blood Count 2.88 L 4.50-6.20 MIL/uL Hemoglobin 8.7 L 14.0-18.0 g/dL Hematocrit 25.4 L 42-54 % Mean Corpuscular Volume 88.2 79-99 fL Mean Corpuscular Hemoglobin 30.2 27.0-33.0 pg Mean Corpuscular Hemoglobin Concent 34.3 32.0-36.0 g/dL Red Cell Distribution Width 15.1 11.0-15.5 % Platelet Count 102 L 130-400 K/uL Mean Platelet Volume 9.6 7.5-10.5 fL Nucleated Red Blood Cells 0.0 0.0-0.19 % Sodium Level 150 H 136-145 mmol/L Potassium Level 3.0 *L 3.5-5.1 mmol/L Chloride Level 102 101-111 mmol/L Carbon Dioxide Level 27 21-32 mmol/L Blood Urea Nitrogen 127 *H 7-18 mg/dL Creatinine 9.9 *H 0.5-1.3 mg/dL Glomerular Filtration Rate Calc 5 >90 mL/min Random Glucose 145 H 70-105 mg/dL Total Calcium 7.9 L 8.5-10.1 mg/dL Phosphorus Level 7.5 H 2.5-4.9 mg/dL Magnesium Level 2.10 1.80-2.40 mg/dL Total Bilirubin 0.7 0.2-1.0 mg/dL Aspartate Amino Transf (AST/SGOT) 29 10-37 U/L Alanine Aminotransferase (ALT/SGPT) 23 12-78 U/L Alkaline Phosphatase 115 # 50-136 U/L Total Protein 6.3 # 6.0-8.3 g/dL Albumin 2.4 #L 3.5-5.0 g/dL Direct Bilirubin 0.2 0.0-0.3 mg/dL Lactate Dehydrogenase 299 H 81-234 U/L Immature Granulocyte % (Auto) 0.7 0-1 % Neutrophils (%) (Auto) 86.5 H 40.0-77.0 % Lymphocytes (%) (Auto) 3.7 L 21.0-51.0 % Monocytes (%) (Auto) 8.9 3.0-13.0 % Eosinophils (%) (Auto) 0.1 0.0-8.0 % Basophils (%) (Auto) 0.1 0.0-5.0 % Neutrophils # (Auto) 6.5 1.8-7.7 K/uL Lymphocytes # (Auto) 0.3 L 1.0-4.8 K/uL Monocytes # (Auto) 0.7 0.1-1.0 K/uL Eosinophils # (Auto) 0.01 0.00-0.70 K/uL Basophils # (Auto) 0.01 0.00-0.20 K/uL Absolute Immature Granulocyte (auto 0.05 0-1 K/uL Reticulocyte Count (auto) 0.14140 L 0.42-2.23 % Immature Reticulocyte Fraction 2.00 H 0.18-0.48 % Prothrombin Time 14.1 H 9.6-11.6 SEC Prothromb Time International Ratio 1.37 H 0.85-1.15 Activated Partial Thromboplast Time 35.6 H 26.3-35.5 SEC Fibrinogen 346 180-350 mg/dL D-Dimer Quantitative (PE/DVT) 1328 *H 0-500 ng/mL Test 06/20/24 04:00 Range/Units Stool Occult Blood POSITIVE H NEGATIVE Current Medications Medications (Trade) Dose Ordered Sig/Roderick Route PRN Reason Start Time Stop Time Status Last Admin Dose Admin Albuterol Sulfate (Proventil 0.083% 2.5mg/3ml) 10 mg ONCE STAT IH 06/17/24 04:05 06/17/24 04:12 DC 06/17/24 04:31 10 MG Calcium Gluconate (Calcium Gluc 1gm Vial) 1 gm AD STAT IV 06/17/24 04:05 06/17/24 04:12 DC 06/17/24 04:21 1 GM Cefepime HCl (MAXipime 1 GM vial) 0.25 gm Q24H IVPB 06/17/24 04:00 06/18/24 04:06 DC 06/17/24 04:58 0.25 GM Cefepime HCl (MAXipime 1 GM vial) 1 gm Q24H IVPB 06/20/24 05:00 06/30/24 04:59 06/21/24 05:25 1 GM Cefepime HCl 0.25 gm/Sodium Chloride 50 ml @ 100 mls/hr Q24H IVPB 06/18/24 04:30 06/19/24 10:58 DC 06/19/24 05:26 100 MLS/HR Dextrose (D50w) 50 ml AD PRN IV HYPOGLYCEMIA PROTOCOL 06/17/24 01:00 06/17/24 01:01 DC Dextrose (D50w) 50 ml AD PRN IV HYPOGLYCEMIA PROTOCOL 06/17/24 01:00 07/17/24 00:59 Dextrose (D50w) 50 ml ONCE STAT IV 06/17/24 04:05 06/17/24 04:12 DC 06/17/24 04:21 50 ML Famotidine (Pepcid 20mg Vial) 20 mg Q48H IV 06/17/24 01:00 07/17/24 00:59 06/20/24 23:50 20 MG Furosemide (LASix 40MG VIAL) 40 mg Q8H IV 06/19/24 18:30 06/20/24 18:31 DC 06/20/24 18:54 40 MG Glucagon (Glucagon 1mg Kit) 1 mg AD PRN IM HYPOGLYCEMIA PROTOCOL 06/17/24 01:00 06/17/24 01:01 DC Glucagon (Glucagon 1mg Kit) 1 mg AD PRN IM HYPOGLYCEMIA PROTOCOL 06/17/24 01:00 07/17/24 00:59 Hydrocortisone Sodium Succinate (Solu-corTEF 100MG) 50 mg Q8H IV 06/18/24 11:30 07/18/24 11:29 06/21/24 03:51 50 MG Hydromorphone HCl (DiLAUDid 0.5MG INJ) 0.5 mg Q4H PRN IVP SEVERE PAIN (7-10) 06/20/24 13:00 06/25/24 12:59 06/20/24 12:50 0.5 MG Insulin Human Regular (humuLIN R 100 UNIT/ML 3ML) 10 unit ONCE STAT IV 06/17/24 04:05 06/17/24 04:12 DC 06/17/24 04:28 10 UNIT Insulin Human Regular (humuLIN R 100 UNIT/ML 3ML) INSULIN SLIDING SCAL... ACHS SQ 06/17/24 07:30 07/17/24 07:29 Lactated Ringer's 1,000 ml @ 130 mls/hr Q7H42M IV 06/21/24 09:30 07/21/24 09:29 06/21/24 09:42 130 MLS/HR Leptospermum Honey (Medihoney) 1 appl DAILY TP 06/19/24 09:00 07/19/24 08:59 06/21/24 09:43 1 APPL Metronidazole/ Sodium Chloride (flaGYL) 500 mg Q8H IV 06/17/24 05:00 06/27/24 04:59 06/21/24 05:24 500 MG Micafungin Sodium 100 ml @ 100 mls/hr Q24H IV 06/18/24 00:00 07/18/24 00:00 06/20/24 23:50 100 MLS/HR Norepinephrine 250 ml @ 0 mls/hr PROTOCOL IV 06/16/24 22:00 07/16/24 21:59 06/17/24 05:33 24.5 MLS/HR Pharmacy Profile Note (Lace Assessment) 1 each AD MISC 06/19/24 15:30 06/20/24 12:49 DC Pharmacy Profile Note (Pharmacy Communication) 1 each ONCE MISC 06/17/24 23:00 06/19/24 07:13 DC 06/17/24 23:31 1 EACH Phenylephrine HCl 100 mg/Sodium Chloride 250 ml @ 0 mls/hr AD PRN IV TITRATE 06/17/24 10:30 07/17/24 10:29 06/18/24 05:48 27 MLS/HR Piperacillin Sod/ Tazobactam Sod (Zosyn 3.375gm+NS 50ml) 3.375 gm Q12H IV 06/16/24 21:30 06/17/24 01:03 DC 06/16/24 21:42 3.375 GM Piperacillin Sod/ Tazobactam Sod (Zosyn 3.375gm+NS 50ml) 3.375 gm Q12H IVPB 06/17/24 01:00 06/17/24 04:00 DC 06/17/24 02:54 3.375 GM Potassium Chloride 100 ml @ 100 mls/hr AD PRN IV POTASSIUM PROTOCOL 06/21/24 08:00 07/21/24 07:59 06/21/24 09:41 100 MLS/HR Sodium Bicarbonate / Dextrose 1,000 ml @ 0 mls/hr Q0M IVP 06/17/24 05:00 06/17/24 04:58 DC Sodium Bicarbonate 150 meq/Dextrose 1,150 ml @ 50 mls/hr Q23H IVP 06/18/24 08:00 06/19/24 12:24 DC 06/18/24 20:23 100 MLS/HR Sodium Bicarbonate 150 meq/Dextrose 1,150 ml @ 100 mls/hr [id number] IVP 06/17/24 05:00 06/18/24 04:44 DC 06/17/24 21:00 100 MLS/HR Sodium Polystyrene Sulfonate (kayEXALate 15 GM/60 ML) 15 gm Q2H PO 06/16/24 21:30 06/16/24 23:31 DC 06/16/24 22:21 15 GM Sodium Chloride 1,000 ml @ 150 mls/hr Q6H40M IV 06/16/24 23:00 06/17/24 09:10 DC 06/17/24 05:15 150 MLS/HR Sodium Chloride (NS 50ml) 50 ml AD IV 06/17/24 01:00 06/17/24 01:05 DC Thiamine HCl (Vitamin B-1) 100 mg DAILY IVP 06/17/24 09:00 07/17/24 08:59 06/21/24 09:41 100 MG Vancomycin HCl (Vancomycin 750mg) 750 mg Q96H IVPB 06/20/24 22:00 06/17/24 14:00 DC Vancomycin HCl (Vancomycin Protocol) 1 each AD IV 06/17/24 01:30 06/17/24 14:01 DC DIAGNOSTICS / RADIOLOGY: [ ] ASSESSMENT: Severe metabolic acidosis, resolved POA Septic shock requiring vasopressor, resolved POA Fungemia Acute on chronic renal failure POA Hyperkalemia POA Chronic anemia POA Acute thrombocytopenia POA Failure to thrive POA Acute encephalopathy, improving DM2 last A1c unknown Dyslipidemia Peripheral artery disease Osteomyelitis with recent 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 Continue to follow Nephrology input recommendation terms of renal replacement therapy Start LR @ 130 cc/hr Start clear liquid diet Continue furosemide GI consulted, appreciate recommendations Hematology consulted, appreciate recommendations Anemia workup. Transfuse as needed. Hematology consultation requested per Follow critical care input and recommendation Disposition: Pending improvement in clinical status Greater than 35 minutes ICUt julian spent in care of patient AL CARDONA MD Jun 21, 2024 12:10
[2024-06-21 13:31] LABS: PHOSPHORUS 6.5 mg/dL (2.5-4.9)
--- NOTE | 2024-06-21 13:58 | PN ---
NEPHROLOGY PROGRESS NOTE Date/Time Patient Seen: Jun 21, 2024 Reason for Consultation: 13:56 SUBJECTIVE: This is a 69-year-old male with a past medical history of peripheral artery disease with osteomyelitis S/p left 4th and 5th toe and right 3rd toe amputation, anemia, chronic pain, diabetes mellitus type 2, hypertension, hyperlipidemia, chronic kidney disease, recent COVID-19 infection. He presented to the emergency room via EMS from [facility] with complaints of low platelets, poor appetite and generalized weakness. Influenza and COVID swabs were negative CT of the abdomen showed mild enterocolitis with mild to moderate small and large bowel liquid contents. He was admitted to the ICU for further medical management of septic shock He continues to require vasopressors to maintain blood pressure. Continues with a severe lactic acidosis. Blood cultures were positive for budding yeast He continues on antibiotics In the emergency room he was noted to have elevated BUN/creatinine and hyperkalemia. Renal function is improving Electrolytes are stable. Urine output was noted Renal ultrasound was noted He was seen in the ICU, in no acute distress Family at the bedside Condition remains critical and guarded REVIEW OF SYSTEMS: Unable to obtain due to patient's status PHYSICAL EXAM: GENERAL: Lethargic. No acute distress. Well-nourished. EYES: EOMI. Anicteric. HENT: Moist mucous membranes. No scleral icterus. No cervical lymphadenopathy. LUNGS: Clear to auscultation bilaterally. No accessory muscle use. CARDIOVASCULAR: Regular rate and rhythm. No murmur. No JVD. ABDOMEN: Soft, non-tender and non-distended. No palpable masses. EXTREMITIES: No edema. Non-tender. SKIN: No rashes or lesions. Warm. NEUROLOGIC: No focal neurological deficits. CN II-XII grossly intact, but not individually tested. PSYCHIATRIC: Cooperative. Appropriate mood and affect. LABORATORY: [ ] Hematology Labs: Test 06/21/24 04:11 06/20/24 05:43 Range/Units White Blood Count 7.9 4.8-10.8 K/uL Red Blood Count 2.88 L 4.50-6.20 MIL/uL Hemoglobin 8.7 L 14.0-18.0 g/dL Hematocrit 25.4 L 42-54 % Mean Corpuscular Volume 88.2 79-99 fL Mean Corpuscular Hemoglobin 30.2 27.0-33.0 pg Mean Corpuscular Hemoglobin Concent 34.3 32.0-36.0 g/dL Red Cell Distribution Width 15.1 11.0-15.5 % Platelet Count 102 L 130-400 K/uL Mean Platelet Volume 9.6 7.5-10.5 fL Nucleated Red Blood Cells 0.0 0.0-0.19 % Immature Granulocyte % (Auto) 0.7 0-1 % Neutrophils (%) (Auto) 86.5 H 40.0-77.0 % Lymphocytes (%) (Auto) 3.7 L 21.0-51.0 % Monocytes (%) (Auto) 8.9 3.0-13.0 % Eosinophils (%) (Auto) 0.1 0.0-8.0 % Basophils (%) (Auto) 0.1 0.0-5.0 % Neutrophils # (Auto) 6.5 1.8-7.7 K/uL Lymphocytes # (Auto) 0.3 L 1.0-4.8 K/uL Monocytes # (Auto) 0.7 0.1-1.0 K/uL Eosinophils # (Auto) 0.01 0.00-0.70 K/uL Basophils # (Auto) 0.01 0.00-0.20 K/uL Absolute Immature Granulocyte (auto 0.05 0-1 K/uL Reticulocyte Count (auto) 0.92488 L 0.42-2.23 % Immature Reticulocyte Fraction 2.00 H 0.18-0.48 % Chemistry Labs: Test 06/21/24 13:10 06/21/24 11:05 06/21/24 04:11 06/20/24 09:10 Range/Units Phosphorus Level 6.5 H 2.5-4.9 mg/dL Magnesium Level 2.00 1.80-2.40 mg/dL Whole Blood Glucose 154 H 70-110 MG/DL Bedside Glucose Comment Notified Nurse Sodium Level 150 H 136-145 mmol/L Potassium Level 3.0 *L 3.5-5.1 mmol/L Chloride Level 102 101-111 mmol/L Carbon Dioxide Level 27 21-32 mmol/L Blood Urea Nitrogen 127 *H 7-18 mg/dL Creatinine 9.9 *H 0.5-1.3 mg/dL Glomerular Filtration Rate Calc 5 >90 mL/min Random Glucose 145 H 70-105 mg/dL Total Calcium 7.9 L 8.5-10.1 mg/dL Total Bilirubin 0.7 0.2-1.0 mg/dL Aspartate Amino Transf (AST/SGOT) 29 10-37 U/L Alanine Aminotransferase (ALT/SGPT) 23 12-78 U/L Alkaline Phosphatase 115 # 50-136 U/L Total Protein 6.3 # 6.0-8.3 g/dL Albumin 2.4 #L 3.5-5.0 g/dL Direct Bilirubin 0.2 0.0-0.3 mg/dL Lactate Dehydrogenase 299 H 81-234 U/L Coagulation Labs: Test 06/20/24 05:43 Range/Units Prothrombin Time 14.1 H 9.6-11.6 SEC Prothromb Time International Ratio 1.37 H 0.85-1.15 Activated Partial Thromboplast Time 35.6 H 26.3-35.5 SEC Fibrinogen 346 180-350 mg/dL D-Dimer Quantitative (PE/DVT) 1328 *H 0-500 ng/mL DIAGNOSTICS / RADIOLOGY: REASON: SOB ORDERING PHYSICIAN: LALI BOLDEN NP PROCEDURE: CXR1VW - CHEST 1VW PORTABLE CHEST RADIOGRAPH INDICATION: SOB COMPARISON: 06/18/2024 FINDINGS: threat monitoring analyst leads overlie the field of view. Tip of right PICC within the SVC. Heart remains enlarged. The pulmonary vascularity and mauricio appear normal. No abnormal pulmonary parenchymal opacity or consolidation identified. No significant pleural effusion noted. No pneumothorax detected. IMPRESSION: Stable cardiac megaly without radiographic evidence for any acute cardiopulmonary process. DICTATED BY: ROLANDO HAN MD DATE: 06/19/24 1011 REASON: SOB ORDERING PHYSICIAN: LALI BOLDEN NP PROCEDURE: CXR1VW - CHEST 1VW PORTABLE CHEST RADIOGRAPH INDICATION: SOB COMPARISON: 06/16/2024 FINDINGS: threat monitoring analyst leads overlie the field of view. Patient positioning is not optimal, but the radiologic examination is still believed to be of reasonable diagnostic quality. Stable right PICC. Stable heart size. Mild calcific plaque is present along the aortic arch rosales. The pulmonary vascularity and mauricio appear normal. Suspect very small layering right and very small left pleural effusions with subjacent passive linear opacities. No evidence for consolidation. No pneumothorax detected. IMPRESSION: Suspect very small layering right and very small left pleural effusions with subjacent passive atelectasis. DICTATED BY: ROLANDO HAN MD DATE: 06/19/24 1021 REASON: sob ORDERING PHYSICIAN: LILIAM LACY PROCEDURE: ECHO CMP - ECHO 2-D COMPLETE APPROVED REPORT EXAM: Two-dimensional and M-mode echocardiogram with Doppler and color Doppler. INDICATION ICD: R06.02 Shortness of breath 2D Dimensions RVDd 5.0 cm LVEF(%) 68.3 (>50%) LVED Vol(simp.) 128.0 mL IVSd 1.4 (0.7-1.1cm) FS(%) 38 % LVES Vol(simp.) 51.0 mL LVDd 4.2 (3.8-5.6cm) LA (2D) 4.0 (1.6-4.0cm) LVEF(%, simp.) 60 % PWd 1.5 (0.7-1.1cm) Ao Root(2D) 4.0 (2.0-3.7cm) LA ESV INDEX (BP) 37.99 mL/m2 LVDs 2.6 (2.5-4.0cm) LVOT diam 2.3 (1.8-2.4cm) IVC diam 2.1 cm Deformation Strain Apical 4 -19.0 % Apical 2 -15.0 % Apical 3 -16.0 % Global Strain -17.0 % M-Mode Dimensions EPSS 1.1 cm LA (MM) 4.0 (1.6-4.0cm) Ao Root(MM) 3.0 (2.0-3.7cm) Aortic Valve AoV Vmax 2.5 m/s Ao Peak GR 24.7 mmHg LVOT Vmax 1.5 m/s AoV VTI 0.4 m Ao Mean GR 15.1 mmHg LVOT VTI 0.29 m DEBORA (VMAX) 2.9 cm2 DEBORA (VTI) 2.9 cm2 Mitral Valve MV E Vmax 144.9 cm/s DECEL Time 175 ms MV A Vmax 128.2 cm/s P 1/2 T 58 ms E/A ratio 1.1 MVA (PHT) 3.8 cm2 TDI E/E' Medial 16.1 E/E' Lateral 14.5 Medial E' Peak V 9.00 cm/s Lateral E' Peak V 10.00 cm/s Pulmonary Valve PV Vmax 1.3 m/s Tricuspid Valve TR Vmax 2.7 m/s RAP (EST) 3 mmHg RVSP 32.3 mmHg TR Peak GR 29.3 mmHg Left Ventricle The left ventricle is normal size. GS -17%. Hyoerdynamic LV with normal LV segmental wall motion. Moderate concentric left ventricular hypertrophy. LVEF is 60-65%. Grade 2 diastolic dysfunction. Right Ventricle The right ventricle is moderately dilated, measuring 5.0 cm. The right ventricular systolic function is normal. Atria The left atrium is mildly dilated with an LA ESV index of 38 mL/m�. The right atrium is moderately dilated. Aortic Valve Aortic valve is trileaflet, with mild sclerosis of the left coronary cusp. The aortic valve is seen to open near normally. No aortic regurgitation is present. There is no aortic valvular stenosis. Mitral Valve Mitral valve leaflets open well. Posterior annular and leaflet calcification noted. There is no mitral valve regurgitation noted. There is no mitral valve stenosis. Tricuspid Valve The tricuspid valve is normal in structure. There is trace of tricuspid valve regurgitation noted. Pulmonic Valve The pulmonary valve is normal in structure. There is no pulmonic valvular regurgitation. Great Vessels The aortic root is normal in size. The IVC is normal in size and collapses >50% with inspiration. Pericardium There is no pericardial effusion. Other Information Quality : Adequate Conclusion The left ventricle is normal size. Moderate concentric left ventricular hypertrophy. GS -17%. Hyoerdynamic LV with normal LV segmental wall motion. LVEF is 60-65%. Grade 2 diastolic dysfunction. Aortic valve is trileaflet, with mild sclerosis of the left coronary cusp. The aortic valve is seen to open near normally. There is no aortic valvular stenosis. Mitral valve leaflets open well. Posterior annular and leaflet calcification noted. There is no mitral valve stenosis. There is no mitral valve regurgitation noted. There is no pericardial effusion. DICTATED BY: KATJA LANDRY MD DATE: 06/17/24 0847 REASON: RENAL FAILURE ORDERING PHYSICIAN: EUSEBIO POWELL PROCEDURE: ABD PEL WO - CT ABDOMEN/PELVIS W/O CONTRAST CT ABDOMEN WITHOUT CONTRAST. CT PELVIS WITHOUT CONTRAST. INDICATION: Renal failure TECHNIQUE: Routine transaxial imaging using 5 mm slice thickness through the abdomen and pelvis without the administration of IV contrast. Thin slice reconstructions are also provided. Coronal and sagittal reformatted images acquired for interpretation. CT was performed with one or more of the following dose reduction techniques: Automated exposure control, adjustment of the mA and/or kV according to patient size, or use of iterative reconstruction technique. COMPARISON: None FINDINGS: Diagnostic sensitivity of this examination is limited by patient motion artifact. ON NONCONTRAST IMAGING: ABDOMEN: Heart size is normal. Mitral annular calcific plaque. Visible lung bases are clear. No abnormal renal calcifications, hydronephrosis, perinephric inflammation, or proximal hydroureter detected. The liver is normal in size and smooth in contour without biliary duct dilation. The spleen is normal in size and attenuation. Several miniscule calcifications within the gallbladder lumen. The pancreas appears normal without pancreatic duct dilation. The adrenal glands appear normal. No significant abdominal, retrocrural or retroperitoneal adenopathy noted. No evidence for intra-abdominal free air or organized fluid collection. Mild calcific plaque is noted along the abdominal aortic and iliac vessel rosales without aneurysmal dilation. PELVIS: Gallagher catheter within the nearly empty urinary bladder. Urinary bladder wall thickening is more than expected for empty urinary bladder. No evidence for free air or organized pelvic fluid collection. No significant pelvic adenopathy detected. Mild to moderate small and large bowel liquid contents. A few diverticula along the distal colon. Terminal ileum appears unremarkable. The appendix appears normal. Mild thoracolumbar spondylosis. IMPRESSION: 1. Probable mild enterocolitis with mild to moderate small and large bowel liquid contents. 2. Cholelithiasis. 3. Urinary bladder wall thickening, more than expected for empty urinary bladder. Correlation with urine studies is recommended. 4. Mild distal colonic diverticulosis. 5. Arteriosclerotic disease as described. DICTATED BY: ROLANDO HAN MD DATE: 06/17/24 1000 REASON: NETO ORDERING PHYSICIAN: BRENDA MAI MD PROCEDURE: RENAL - US RENAL SONOGRAM ULTRASOUND RENAL COMPLETE INDICATION: NETO TECHNIQUE: Routine ultrasound of the kidneys and urinary bladder with grayscale and color Doppler imaging was performed in real-time, and subsequently made available for review. COMPARISON: No prior studies available for comparison. FINDINGS: The right kidney measures 9.7 x 4.9 x 4.6 cm. No abnormal mass demonstrated. No evidence for hydronephrosis or shadowing stone. The left kidney measures 10.1 x 5.5 x 4.8 cm. No abnormal mass demonstrated. No evidence for hydronephrosis or shadowing stone. Urinary bladder wall thickness measures 4.0 mm, but exaggerated due to incomplete distention. No free fluid demonstrated. IMPRESSION: Normal sonographic appearance of the kidneys and urinary bladder. DICTATED BY: ROLANDO HAN MD DATE: 06/17/24 0949 REASON: cp ORDERING PHYSICIAN: MARY CARR MD PROCEDURE: CXR1VW - CHEST 1VW PORTABLE CHEST RADIOGRAPH INDICATION: cp COMPARISON: 05/06/2024 FINDINGS: threat monitoring analyst leads overlie the field of view. Tip of right PICC within the SVC. Heart size is normal. Mild calcific plaque is present along the aortic arch rosales. The pulmonary vascularity and mauricio appear normal. No abnormal pulmonary parenchymal opacity or consolidation identified. No significant pleural effusion noted. No pneumothorax detected. IMPRESSION: No radiographic evidence for any acute cardiopulmonary process. DICTATED BY: ROLANDO HNA MD DATE: 06/16/24 8694 ASSESSMENT: Acute on chronic renal failure Severe Lactic acidosis Metabolic acidosis Hyperkalemia Septic shock, requiring vasopressor Acute encephalopathy Thrombocytopenia NSTEMI, rule-out demand ischemia vs true cardiac etiology Failure to thrive History of osteomyelitis with recent amputation Elevated troponin Elevated BNP Diabetes mellitus type 2 Hypertension Hyperlipidemia Peripheral artery disease PLAN: Labs, diagnostic, radiologic exams reviewed and interpreted by myself and supervising physician. We have reviewed external records in detail There is no need for emergent renal replacement therapy at this time. Require close monitoring of renal function and electrolytes Order CBC, CMP, and electrolytes in am Follow up culture results BiPAP as necessary, for respiratory distress Continue with IV pressors as needed Monitor blood pressure adjust medication doses as needed Avoid hypotensive episodes May use Dilaudid 0.5 mg IV every 6 hours as needed for severe pain Monitor blood sugars Strict intake, output, and daily weight should be monitored Please renally adjust medications Avoid nephrotoxic and nonsteroidal drugs Avoid contrast if possible Will continue to monitor renal function, anemia, electrolytes Treatment plan discussed with patient Questions were answered We have discussed with the other team physicians in detail about the care plan We will continue to monitor the patient closely Total critical care time spent with patient, nursing staff, critical care team over 35 minutes ATTESTATION BY PHYSICIAN I have seen and examined the patient. I reviewed the documentation, medical decision making, and treatment plan as noted by the mid-level provider above. I agree with the findings and plan of care. BRENDA MAI MD, [facility] Jun 21, 2024 13:58
--- NOTE | 2024-06-21 14:33 | NUR ---
BEDSIDE SWALLOW EVAL COMPLETED. SINGLE EPISODE OF THROAT CLEARING NOTED WITH 4 OZ OF WATER BY STRAW. OK TO CONTINUE CLEAR LIQUID DIET RECOMMENDED BY MD PENDING GI CONSULT, thin liquids, and pills whole with liquids as tolerated. D/C PO DIET IF OVERT S/S OF ASPIRATION ARE OBSERVED DURING MEAL INTAKE. DIET TO BE ADVANCED BY MD. Compensatory strategies: 1. sit upright during and 30 minutes after meals 2. slow oral intake 3. small bites/sips MBA INTERN reviewed results and recommendations with patient, and nurse WARD. MBA INTERN educated patient/family on risks and consequences of aspiration. Speech therapy not warranted at this time. All questions answered. Addendum: 06/21/24 at [address] Amended: Links added.
[2024-06-21 15:29] LABS: APPEARANCE,URINE CLEAR (CLEAR); BILIRUBIN,URINE NEGATIVE (NEGATIVE); COLOR,URINE COLORLESS (YELLOW); GLUCOSE, URINE (UA) 50 mg/dL (NEGATIVE); KETONES,URINE 20 mg/dL (NEGATIVE); LEUKOCYTE ESTERASE ,URINE NEGATIVE Leu/uL (NEGATIVE); NITRATE,URINE NEGATIVE (NEGATIVE); OCCULT BLOOD,URINE MODERATE (NEGATIVE); PROTEIN,URINE 70 mg/dL (NEGATIVE); UROBILINOGEN,URINE 0.2 mg/dL (0.2-1.0)
[2024-06-21 15:34] LABS: ADD UA MICROSCOPIC YES; BACTERIA,URINE FEW /HPF (None Seen); MUCUS,URINE RARE LPF (None Seen)
--- NOTE | 2024-06-21 16:10 | NUR ---
REPORT CALLED TO BHAVESH PAT AND PATIENT TO BE TRANSFERRED TO ROOM 308.
--- NOTE | 2024-06-21 16:13 | PN ---
[facility] PROGRESS NOTE Date Patient Seen: Jun 21, 2024 Time of Visit: 16:11 Supervising Physician: Dr. Glasgow Primary Care Physician: [None-recently relocated from [place]] Outpatient Specialists: [ ] Inpatient Consults: BIS team, nephro: Dr. Dowd, cardio: Dr. Bae] PROBLEM LIST: Septic shock, requiring pressor-POA Acute encephalopathy; likely multifactorial infectious, uremic and toxic metabolic-POA Severe metabolic acidosis-POA Acute renal failure, severe-POA Uremia-POA Severe hyperkalemia-POA Resolved Thrombocytopenia-POA Severe lactic acidosis-POA NSTEMI, rule-out demand ischemia vs true cardiac etiology-POA INTERVAL HISTORY: 06/17/2024: At the time of my evaluation, the patient was lying in bed. He is generally confused and critically ill appearing. Currently on the monitor the p atient is borderline hypotensive 91/35 and a heart rate of 110 and respiratory rate of 26. The patient remains on a nasal cannula for oxygen supplementation. Laboratory data was significant for a WBC of 14.2, H&H 8.4/27.0 and a platelet count of 28. Chemistry panel showed sodium of 143, potassium 5.0, chloride is 104, CO2 of five, BUN 107, creatinine of 9.7 and a GFR of five. Anion gap of 34, lactic acid 9.1 and procalcitonin of 0.60. ABG this a.m. showed a pH of 6.87, pCO2 less than 15, PO2 138.9 and HC03 of 2.3. I currently do not see any preliminary microbiology data. CT of the abdomen, showed mild enterocolitis, cholelithiasis and urinary bladder wall thickening. The patient was started on antibiotic coverage with vancomycin, cefepime and Flagyl. The patient is also on pressor therapy with phenylephrine and is also on a bicarb drip. No other complaint. 06/18/2024: At the time of my evaluation, the patient was lying in bed. He is more awake today. Family members were present at the bedside. On the monitor, the vital signs are hemodynamically stable. Laboratory data today showed a interval increase of WBC to 16.4, H&H 8.2/23.7 and a platelet count of 27. Chemistry panel today was notable for a CO2 of 13 with a anion gap of 28, BUN 105, creatinine of 10.2 and a GFR of 5, lactic acid of 8.2. Total protein of 5.9 and albumin of 2.3. ABG today showed a pH of 7.33, pCO2 31, PO2 of 64.5, HC03 of 16.1 and a base excess of -8.5. Over the past 24 hours, urine output average was 0.07 mL/kg/hour and has a positive balance of 3683.1. Preliminary blood culture vial 1/2 was showing budding yeast, vial 2 was showing no growth. Overnight, the patient was started on micafungin continued on cefepime and Flagyl. No other complaint. 06/19/2024: At the time of my evaluation, the patient is lying in bed. The staff nurse reports no acute events overnight. On the monitor, the patient remains hemodynamically stable and on nasal cannula for oxygen supplementation. On ABG, the patient had a pH of 7.41, pCO2 37, PO2 81.5 and a HC03 of 23.1 with a base excess of -1.3. On ABG, lactic acid of 4.67. Laboratory data today showed improved WBC count to 11.2, H&H 7.6/20.9 and a platelet count of 14. Chemistry panel showed sodium of 148, potassium of 3.2, chloride is 105, CO2 25, BUN of 108, creatinine of 10.2 and a GFR of five. Magnesium of 1.90. Troponin of 5.7 and albumin of 2.1. Chest x-ray obtained today showed stable cardiomegaly. The patient continues on antibiotic coverage with cefepime and micafungin. The patient also continues on the bicarb drip and was started on Lasix overnight. No other complaint. 06/20/2024: At the time of my evaluation, the patient is lying in bed. He is more awake today and verbally interactive. Family members are present at the bedside. On the monitor, the patient is hemodynamically stable except for hypertension and continues on nasal cannula for oxygen support. Laboratory data today shows a WBC 8.4, H&H 7.9/22.3 and a platelet count of 121. Chemistry panel showed a sodium count of 150, potassium of 2.3, chloride is 110, CO2 of 19, BUN of 91, creatinine of 7.6 and a GFR of seven. Total calcium of 6.4, magnesium of 1.60. Lactic dehydrogenase of 299. Total protein of 4.9 and albumin of 1.8. PT 14.1, INR 1.37, PTT of 35.6 fibrinogen of 346 and D-dimer of 1328. Stool for occult blood was again positive. No chest imaging for review today. The patient remains on Lasix injection and with improved urinary output. I&O showed a urinary output of 2250 mL with a balance of -38.3. Also, patient continues on antibiotic therapy with cefepime, Flagyl and micafungin. No new complaint. 06/21/2024: At the time of my evaluation, the patient is lying in bed. Patient is awake, alert, verbally interactive. On the monitor, he is hemodynamically stable and remains on nasal cannula for oxygen supplementation. Laboratory data today was notable for a sodium of 150, potassium of 3.0, chloride of 102, CO2 of 27, BUN is 127, creatinine of 9.9 and a GFR five. Total calcium of 7.9, phosphorus of 7.5, total protein of 6.3 and a albumin of 2.4. Blood culture resulted positive for Alicia tropicalis and wound culture is in process. No new imaging for review today. Currently, the patient is off diuretic therapy, he remains on antibiotic therapy as ordered. No other complaint. REVIEW OF SYSTEMS: Unable to perform 12 point ROS due to patient's encephalopathy. PHYSICAL EXAM: GENERAL: Awake, Alert. Generally weak HEENT: Normocephalic, atraumatic, dry mucosa NECK: Supple, no JVD, trachea midline LUNGS: Clear breath sounds bilaterally. No wheezes HEART: Regular rate and rhythm. Normal S1 and S2, positive murmurs , tachycardic ABD: Abdomen soft, nontender. Bowel sounds present EXT: No clubbing, cyanosis, or edema, bilateral feet wound with toe amputations with dressing CDI NEURO: Deferred Vital Signs (last 8hr) Date Time Temp Pulse Resp B/P (MAP) Pulse Ox O2 Delivery O2 Flow Rate FiO2 06/21/24 13:00 70 18 161/90 97 Nasal Cannula 2.0 06/21/24 12:00 98 Nasal Cannula* 2 28 06/21/24 12:00 72 20 143/76 98 Nasal Cannula 2.0 06/21/24 11:00 62 25 148/75 98 Nasal Cannula 2.0 06/21/24 11:00 98.4 06/21/24 10:00 93 32 165/79 97 Nasal Cannula 2.0 06/21/24 09:00 58 30 148/68 99 Nasal Cannula 2.0 LABS: Hematology Labs: Test 06/21/24 04:11 06/20/24 05:43 Range/Units White Blood Count 7.9 4.8-10.8 K/uL Red Blood Count 2.88 L 4.50-6.20 MIL/uL Hemoglobin 8.7 L 14.0-18.0 g/dL Hematocrit 25.4 L 42-54 % Mean Corpuscular Volume 88.2 79-99 fL Mean Corpuscular Hemoglobin 30.2 27.0-33.0 pg Mean Corpuscular Hemoglobin Concent 34.3 32.0-36.0 g/dL Red Cell Distribution Width 15.1 11.0-15.5 % Platelet Count 102 L 130-400 K/uL Mean Platelet Volume 9.6 7.5-10.5 fL Nucleated Red Blood Cells 0.0 0.0-0.19 % Immature Granulocyte % (Auto) 0.7 0-1 % Neutrophils (%) (Auto) 86.5 H 40.0-77.0 % Lymphocytes (%) (Auto) 3.7 L 21.0-51.0 % Monocytes (%) (Auto) 8.9 3.0-13.0 % Eosinophils (%) (Auto) 0.1 0.0-8.0 % Basophils (%) (Auto) 0.1 0.0-5.0 % Neutrophils # (Auto) 6.5 1.8-7.7 K/uL Lymphocytes # (Auto) 0.3 L 1.0-4.8 K/uL Monocytes # (Auto) 0.7 0.1-1.0 K/uL Eosinophils # (Auto) 0.01 0.00-0.70 K/uL Basophils # (Auto) 0.01 0.00-0.20 K/uL Absolute Immature Granulocyte (auto 0.05 0-1 K/uL Reticulocyte Count (auto) 0.09681 L 0.42-2.23 % Immature Reticulocyte Fraction 2.00 H 0.18-0.48 % Chemistry Labs: Test 06/21/24 13:10 06/21/24 11:05 4/20/25 04:11 06/20/24 09:10 Range/Units Phosphorus Level 6.5 H 2.5-4.9 mg/dL Magnesium Level 2.00 1.80-2.40 mg/dL Whole Blood Glucose 154 H 70-110 MG/DL Bedside Glucose Comment Notified Nurse Sodium Level 150 H 136-145 mmol/L Potassium Level 3.0 *L 3.5-5.1 mmol/L Chloride Level 102 101-111 mmol/L Carbon Dioxide Level 27 21-32 mmol/L Blood Urea Nitrogen 127 *H 7-18 mg/dL Creatinine 9.9 *H 0.5-1.3 mg/dL Glomerular Filtration Rate Calc 5 >90 mL/min Random Glucose 145 H 70-105 mg/dL Total Calcium 7.9 L 8.5-10.1 mg/dL Total Bilirubin 0.7 0.2-1.0 mg/dL Aspartate Amino Transf (AST/SGOT) 29 10-37 U/L Alanine Aminotransferase (ALT/SGPT) 23 12-78 U/L Alkaline Phosphatase 115 # 50-136 U/L Total Protein 6.3 # 6.0-8.3 g/dL Albumin 2.4 #L 3.5-5.0 g/dL Direct Bilirubin 0.2 0.0-0.3 mg/dL Lactate Dehydrogenase 299 H 81-234 U/L Coagulation Labs: Test 06/20/24 05:43 Range/Units Prothrombin Time 14.1 H 9.6-11.6 SEC Prothromb Time International Ratio 1.37 H 0.85-1.15 Activated Partial Thromboplast Time 35.6 H 26.3-35.5 SEC Fibrinogen 346 180-350 mg/dL D-Dimer Quantitative (PE/DVT) 1328 *H 0-500 ng/mL DIAGNOSTICS / RADIOLOGY RESULTS: [ ] PLAN 06/17/2024: For now, we are going to continue current management for the patient. We will continue on oxygenation supplementation and adjust as necess javon. The patient will continue on pressor therapy and bicarb drip. He will remain on antibiotic therapy regimen currently with vanco, Flagyl and cefepime. I am going to request a random cortisol level and we will positively start the patient on hydrocortisone. We will repeat surveillance labs in the morning. We will follow the mobile practice lead's recommendation and management. We will continue to monitor the patient's progress and response to management. We will continue to provide general supportive care, GI and DVT prophylaxis. Further orders per attending MD and hospital course. 06/18/2024: For now, going to continue current management for the patient. We will continue aggressive antibiotic therapy as ordered and we will follow the culture results. I am going to challenge the patient with Lasix in efforts of improving urinary output. I am going to decrease the bicarb drip from 100 mL/hour to 50 mL/hour to avoid fluid volume overload given the patient's urinary output is minimal. I am going to request a chest x-ray now for evaluation of the lung field. We will also repeat a chest x-ray in a.m. as well as surveillance labs. Nephrology discuss with the family members regarding starting hemodialysis therapy with a goal of starting his therapy tomorrow. Unfortunately at this time a dialysis catheter can not be inserted due to the platelet count. We will need to give the patient platelets andFFP's in preparation for the hemodialysis catheter insertion. We will monitor the patient's progress and response to management. We will continue to provide general supportive care, GI and DVT prophylaxis. Further orders per attending Mónica Mcelroy and hospital course. 06/19/2024: For now, going to continue current management for the patient. He was started on Lasix overnight which I am going to continue with Lasix 60 mg IV x1 dose then 40 mg IV Q8 hours x4 doses. I am going to go ahead and stop the bicarb drip. Because of the drop in H&H and platelet count, we will consult the hematologists and order DIC workup. I had an at length discussion with the family members including the RP present at the bedside regarding the acuity of his condition, the recommendation of the mobile practice lead for hemodialysis with need for hemodialysis catheter insertion. After an at length discussion, the family members opted against hemodialysis for now and we will be discussing amongst themselves regarding goals of care. We will follow up with the patient at a later time to inquire in the goals of care. We will continue to correct the electrolytes as necessary. We will monitor the patient's progress and response to management. We will continue to provide general supportive care, GI and DVT prophylaxis. Further orders per attending and hospital course. 06/20/2024: For now, we are going to continue current management for the patient. Going to continue Lasix as ordered, I am going to recheck the potassium level and we will supplement if necessary as well as all other electrolytes. We will continue antibiotic therapy as ordered. Gastroenterology was consulted due to the positive FOBT. We will monitor the patient's progress and response to management. We will follow the recommendation of the treating specialist. We will repeat surveillance labs in the morning. We will continue to provide general supportive care, GI and DVT prophylaxis. Further orders per attending MD and hospital course. 06/21/2024: For now, going to continue current management for the patient we will continue to supplement oxygenation as necessary. The patient was started on IV LR to perfuse the kidneys, the patient is producing urine, over the last 24 hours the patient had a output of 1650 with a net balance of -1210.0. Nephrology on board and we will defer electrolyte correction and follow further guidance on renal management. We will continue antibiotic therapy as guided by the Infectious Disease specialist and follow the culture and sensitivity report. We will repeat surveillance labs in the morning. The patient will be downgraded to PCCU status. We will monitor the patient's progress and response to management. We will continue to provide general supportive care, GI and DVT prophylaxis. Further orders per attending MD and hospital course. NEURO: Minimize central acting medications as possible. Fall Precautions. Well lighted room through the day and minimize interruptions through the night to prevent acute delirium. PULMONARY: Supplemental 02 as needed Titrate Fio2 to keep Spo2 > or = 90% DuoNeb�s and CPT as needed IS hourly while awake for pulmonary hygiene Out of bed to chair as tolerated VAP Bundle CARDIOVASCULAR: Follow hemodynamics. Titrate vasopressor to keep MAP >65 or systolic blood pressure >95mmHg DIPS: LINES: PIV's GI & NUTRITION: Continue nutritional support Aspirations precautions Prokinetic agents and laxatives as needed KIDNEYS & ELECTROLYTES: Strict monitoring of intake and output Daily weights Avoid nephrotoxic agents Monitor electrolytes and replace as needed Goal urine output of 30mL/hr or 0.5mL/kg/hr Urine output: [ ] Fluid Balance: [ ] ENDOCRINE: Maintain blood glucose between 100-180 at all times. Insulin sliding scale for blood glucose management INFECTIOUS DISEASE: Trend temperature. Rosenberg-culture if febrile. Micro: [ ] Antibiotics: Cefepime and Mycafungin HEMATOLOGY & COAGULATION: Monitor H&H. Keep Hgb > 7 Transfuse 1 unit of PRBC for Hgb < 7 Transfuse 1 pack of platelets of platelets < 20, 000 Watch for any signs and symptoms of bleeding SKIN: Pressure ulcer prevention per facility protocol Rehab: PT/OT Prophylaxis: GI: Famotidine DVT: SCD Code Status: Full Resuscitation Disposition: ICU Other: I personally spent 40 minutes of critical care time in treatment of this patient. This includes patient management, time at bedside, time reviewing tests, labs, appropriate images and studies, documentation, and patient care coordination. This time excludes separately billable procedures. Case was discussed and seen with my supervising physician. The above plan was formulated and agreed upon. LALI BOLDEN NP Jun 21, 2024 16:13
--- NOTE | 2024-06-21 16:50 | NUR ---
TAKEN TO ROOM 308 VIA BED ALONG WITH PERSONAL BELONGINGS.
--- NOTE | 2024-06-21 19:40 | NUR ---
MEDS SHIFT ASSESSMENT DONE, PLEASE REFER TO CHART. DUE MEDS ADMINISTERED, TOLERATED WELL. KEPT RESTED AND COMFORTABLE IN BED WITH HOB ELEVATED. CALL LIGHT WITHIN REACH. BED ALARM KEPT ACTIVATED.
[2024-06-22] VITALS (8 sets, daily range): BP systolic 138–163; BP diastolic 68–83; PULSE 62–76; RESP 18–20; TEMP 97.5–98.4; O2SAT 99
--- NOTE | 2024-06-22 | NUR ---
PAIN PT CLAIMS OF BACK PAINS. RE-POSITIONED COMFORTABLY IN BED. MEDICATED WITH DILAUDID IV. CHANGED PT'S PICC LINE DRESSING USING ASEPTIC TECHNIQUE. BOTH LUMENS FLUSHES GOOD WITH GOOD BLOOD RETURN. WILL RE-ASSESS PT. Addendum: 06/22/24 at 0108 by LAURA DELEON RN RN Amended: Links added.
[2024-06-22 04:40] LABS: BASOPHILS # (AUTO) 0.01 K/uL (0.00-0.20); BASOPHILS % (AUTO) 0.1 % (0.0-5.0); EOSINOPHILS # (AUTO) 0.01 K/uL (0.00-0.70); EOSINOPHILS % (AUTO) 0.1 % (0.0-8.0); HEMATOCRIT 24.9 % (42-54); IMMATURE GRANULOCYTE ABSOLUTE 0.13 K/uL (0-1); LYMPHOCYTES # (AUTO) 0.6 K/uL (1.0-4.8); LYMPHOCYTES % (AUTO) 8.3 % (21.0-51.0); MEAN CORPUSCULAR HEMOGLOBIN 30.7 pg (27.0-33.0); MEAN CORPUSCULAR HGB CONC 34.5 g/dL (32.0-36.0); MEAN CORPUSCULAR VOLUME 88.9 fL (79-99); NEUTROPHILS # (AUTO) 5.5 K/uL (1.8-7.7); NEUTROPHILS % (AUTO) 75.7 % (40.0-77.0); PLATELET COUNT (AUTO) 82 K/uL (130-400); RED CELL DISTRIBUTION WIDTH 15.3 % (11.0-15.5); WHITE BLOOD COUNT (AUTO) 7.2 K/uL (4.8-10.8)
[2024-06-22 05:13] LABS: ALBUMIN 2.3 g/dL (3.5-5.0); BILIRUBIN,TOTAL 0.6 mg/dL (0.2-1.0); MAGNESIUM 1.8 mg/dL (1.80-2.40); PHOSPHORUS 6.1 mg/dL (2.5-4.9); TOTAL PROTEIN, SERUM 6.1 g/dL (6.0-8.3)
[2024-06-22 05:45] LABS: POTASSIUM 2.7 mmol/L (3.5-5.1)
[2024-06-22 05:46] LABS: CREATININE 8.5 mg/dL (0.5-1.3)
--- NOTE | 2024-06-22 06:11 | NUR ---
REPLACEMENT PT RESTING IN BED. NO DISTRESS NOTED. NO CONCERNS VERBALIZED. LAB HAD CALLED FOR CRITICAL VALUES, PLEASE REFER TO CHART. IV POTASSIUM REPLACEMENT STARTED. KEPT RESTED AND COMFORTABLE IN BED. CALL LIGHT WITHIN REACH. FOR MORE CARE.
--- NOTE | 2024-06-22 08:36 | PN ---
[facility] PROGRESS NOTE Date Patient Seen: Jun 22, 2024 Time of Visit: 08:36 Supervising Physician: Dr. Tonny Bassett Primary Care Physician: [None-recently relocated from [place]] Outpatient Specialists: [ ] Inpatient Consults: BIS team, nephro: Dr. Dowd, cardio: Dr. Bae] PROBLEM LIST: Septic shock, requiring pressor-POA Acute encephalopathy; likely multifactorial infectious, uremic and toxic metabolic-POA Severe metabolic acidosis-POA Acute renal failure, severe-POA Uremia-POA Severe hyperkalemia-POA Resolved Thrombocytopenia-POA Severe lactic acidosis-POA NSTEMI, rule-out demand ischemia vs true cardiac etiology-POA INTERVAL HISTORY: Patient evaluated at bedside today, currently on 3 L nasal cannula. 1/2 blood cultures positive for Alicia tropicalis, continues on cefepime, Flagyl, mi cafungin. Pending cultures to returned on wound that was addressed yesterday. Patient overall seems to be improved, AAO x3, mentation appears improved based on chart review. Patient had no questions at this time, white count today is 7.2, hemoglobin is 8.6. Patient's potassium low at 2.7, currently being replaced. Patient's creatinine today is 8.5, GFR is six, he remains in acute renal failure. Sodium of 146 today. Glucose has remained in the 170s. UA that was ordered yesterday is returned negative for acute findings. No complaints, no overnight events reported. REVIEW OF SYSTEMS: Unable to perform 12 point ROS due to patient's encephalopathy. PHYSICAL EXAM: GENERAL: Awake, Alert. Generally weak HEENT: Normocephalic, atraumatic, dry mucosa NECK: Supple, no JVD, trachea midline LUNGS: Clear breath sounds bilaterally. No wheezes HEART: Regular rate and rhythm. Normal S1 and S2, positive murmurs , tachycardic ABD: Abdomen soft, nontender. Bowel sounds present EXT: No clubbing, cyanosis, or edema, bilateral feet wound with toe amputations with dressing CDI NEURO: Deferred Vital Signs (last 8hr) Date Time Temp Pulse Resp B/P (MAP) Pulse Ox O2 Delivery O2 Flow Rate FiO2 06/22/24 07:41 97.5 62 19 163/78 99 Nasal Cannula 3.0 06/22/24 05:16 76 20 155/83 99 Nasal Cannula 2.0 06/22/24 04:25 98.1 65 20 162/77 99 Nasal Cannula 3.0 28 LABS: Hematology Labs: Test 06/22/24 03:45 Range/Units White Blood Count 7.2 4.8-10.8 K/uL Red Blood Count 2.80 L 4.50-6.20 MIL/uL Hemoglobin 8.6 L 14.0-18.0 g/dL Hematocrit 24.9 L 42-54 % Mean Corpuscular Volume 88.9 79-99 fL Mean Corpuscular Hemoglobin 30.7 27.0-33.0 pg Mean Corpuscular Hemoglobin Concent 34.5 32.0-36.0 g/dL Red Cell Distribution Width 15.3 11.0-15.5 % Platelet Count 82 L 130-400 K/uL Mean Platelet Volume 10.8 H 7.5-10.5 fL Immature Granulocyte % (Auto) 1.8 H 0-1 % Neutrophils (%) (Auto) 75.7 40.0-77.0 % Lymphocytes (%) (Auto) 8.3 L 21.0-51.0 % Monocytes (%) (Auto) 14.0 H 3.0-13.0 % Eosinophils (%) (Auto) 0.1 0.0-8.0 % Basophils (%) (Auto) 0.1 0.0-5.0 % Neutrophils # (Auto) 5.5 1.8-7.7 K/uL Lymphocytes # (Auto) 0.6 L 1.0-4.8 K/uL Monocytes # (Auto) 1.0 0.1-1.0 K/uL Eosinophils # (Auto) 0.01 0.00-0.70 K/uL Basophils # (Auto) 0.01 0.00-0.20 K/uL Absolute Immature Granulocyte (auto 0.13 0-1 K/uL Nucleated Red Blood Cells 0.0 0.0-0.19 % Chemistry Labs: Test 06/22/24 05:20 06/22/24 03:45 06/21/24 16:20 06/20/24 09:10 Range/Units Whole Blood Glucose 173 H 70-110 MG/DL Sodium Level 146 H 136-145 mmol/L Potassium Level 2.7 *L 3.5-5.1 mmol/L Chloride Level 100 L 101-111 mmol/L Carbon Dioxide Level 29 21-32 mmol/L Blood Urea Nitrogen 118 *H 7-18 mg/dL Creatinine 8.5 *H 0.5-1.3 mg/dL Glomerular Filtration Rate Calc 6 >90 mL/min Random Glucose 182 H 70-105 mg/dL Total Calcium 7.6 L 8.5-10.1 mg/dL Phosphorus Level 6.1 H 2.5-4.9 mg/dL Magnesium Level 1.80 1.80-2.40 mg/dL Total Bilirubin 0.6 0.2-1.0 mg/dL Aspartate Amino Transf (AST/SGOT) 27 10-37 U/L Alanine Aminotransferase (ALT/SGPT) 21 12-78 U/L Alkaline Phosphatase 115 50-136 U/L Total Protein 6.1 6.0-8.3 g/dL Albumin 2.3 L 3.5-5.0 g/dL Bedside Glucose Comment Notified Nurse Direct Bilirubin 0.2 0.0-0.3 mg/dL Lactate Dehydrogenase 299 H 81-234 U/L DIAGNOSTICS / RADIOLOGY RESULTS: [ ] PLAN NEURO: Minimize central acting medications as possible. Maintain fall precautions, adequate lighting during the day PULMONARY: Supplemental 02 as needed. Maintain aspiration precautions at all times CARDIOVASCULAR: Follow hemodynamics. Vital signs per facility protocol GI & NUTRITION: Continue with nutritional support. Continue stool softeners and laxatives as needed. KIDNEYS & ELECTROLYTES: Strict monitoring of intake, output and overall fluid balance. Avoid nephrotoxic medications to the extent possible. Medications to be dosed according to renal function. Monitor electrolytes and replace as needed ENDOCRINE: Maintain blood glucose between 100-180 at all times. Hypoglycemia protocol in place INFECTIOUS DISEASE: Trend temperature, WBC and procalcitonin level Follow cultures, deescalate antibiotics as soon as possible. Panculture if new onset fever ONCOLOGY/HEMATOLOGY/COAGULATION: Monitor for s/s of bleeding Monitor hemoglobin, coagulation studies as needed SKIN: Pressure ulcer prevention per facility protocol Specialty mattress ORTHO/REHAB: Continue PT/OT Prophylaxis: Continue GI and DVT prophylaxis Code Status: Full Resuscitation Disposition: TBD Other: Total patient care time: 35 minutes CAIO TRIVEDI Jun 22, 2024 08:36
[2024-06-22] MEDS: PoTASSium chloRIDE 20MEQ ER 20 MEQ ERTAB PO SCH (10:40)
[2024-06-22] MEDS: amLODIPine 5 MG TAB PO SCH (10:40)
[2024-06-22] MEDS: hydrALAZine 25MG TABLET PO SCH (10:43)
--- NOTE | 2024-06-22 13:00 | PN ---
[facility] PROGRESS NOTE Date of Service: Jun 22, 2024 Time of Service: 12:54 SUBJECTIVE: Patient is seen and examined at bedside, case discussed with the RN, during my visit the patient resting comfortably in bed, following simple commands, he is on blood pressure support with Levophed, getting sodium bicarbonate IV. BP 108/57, heart rate of 116, saturating 99% on 2 L nasal cannula. Hemoglobin 8.4, hematocrit 27.0, WBC 14.2, platelet count of 28. Sodium 143, potassium 5.0, bicarb of five, BUN 107, creatinine 9.7. ABG with pH of 7.8, pCO2 less than 15, bicarb of 2.3. 06/18 patient has been seen and examined at bedside, case discussed with the RN, patient remains confused, still on pressor support with Levophed and Andrew- Synephrine, patient also on sodium bicarbonate drip. No family members at bedside during my visit. Blood pressure 112/44, heart rate of 91, saturating 93%. CBC with WBC of 16.4, hemoglobin 8.2, hematocrit 23.7, platelet count of 27. Sodium 145, potassium 3.7, BUN of 102, creatinine 10.2, sodium bicarb of 12. ABG with pH of 7.33, pCO2 31, PO2 64, bicarb of 16.1. Septic workup reviewed, blood cultures no growth after 24 hours. Patient getting broad- spectrum IV antibiotics during my visit. CT of the abdomen pelvis probable mild enterocolitis with mild to moderate small and large bowel liquid content, cholelithiasis, urinary wall thickening, more than expected for empty urinary bladder. Mild distal colonic diverticulosis. 06/19 patient is seen and examined at bedside, case discussed with the RN, no acute events overnight, patient is still confused, however less compared to time of admission. Following very simple commands. He is currently off vasopressors. Replace, output since this morning 500 cc. Blood pressure 111/78, afebrile, saturating 96-98% 2 L nasal cannula. WBC trending down at 11.2, hemoglobin 7.6, hematocrit 20.9, platelet count of 14. BUN 108, creatini ne 10.2. ABG shows a pH 7.41, pCO2 37, PO2 81.5, bicarb 23.1. Blood culture showing Alicia tropicalis. Patient has been started on micafungin. Continue antibiotics. Continue critical care input and recommendation, continue Nephrology input and recommendation in terms of renal replacement therapy, continue daily weight, monitor intake and output. Follow anemia workup, stool o ccult blood, serial CBC transfuse 1 unit of PRBC hemoglobin less than seven, we will request Hematology consultation as well. 06/20 patient seen at bedside, no acute events overnight. He is not requiring pressors he is afebrile, hemodynamically stable saturating well on 2 L nasal cannula. Hemoglobin was 6.1 and platelets low at night, we will be transfused with packed red blood cells and platelets per critical Care, we will follow up post transfusion. Potassium decreased from 3.4 down to 3.2, creatinine stable at 10.2, we will follow up with Nephrology for recommendations. Urine output is improving, he has been started on Lasix, we will follow up. Patient continues on micafungin. Pt reticulocyte count low at 0.18 suggesting decreased production of RBC, FOBT positive as well concerning for GI Bleed. Will consult hematology and GI and follow up 06/21 patient seen at bedside, no acute events overnight. He has been afebrile, hemodynamically stable saturating well on 2 L nasal cannula. He has been NPO however he has no history of volume overload, and his kidney function is decreased, we will perfuse his kidneys with some IV fluids and allow clear liquid diet. Creatinine stable at 9.9, same as yesterday, potassium decreased at 3.0, nephrology to manage potassium levels until renal function improves. Hemoglobin improved from 8.0 up to 8.7, remainder of his labs are relatively unremarkable. 06/22 Pt seen at bedside, no acute events overnight. He has been downgraded from ICU. He has been afebrile, hemodynamically stable, saturating well on room air. Hgb stable at 8.6, similar to yesterday, platelets decreased from 102 down to 82, potassium low at 2.7, will be repleted according to protocol, creatinine improved from 9.9 down to 8.5, sodium improved from 150 down to 146, remainder of his labs are relatively unremarkable. Urine output adequate, approximately 2.3L output in the last 24 hours. On physical exam, no evidence of volume overflow, will continue with IV fluids to perfuse his kidneys. Left foot grow ing mullins-resistant organism, ID to adjust antibiotics REVIEW OF SYSTEMS CONSTITUTIONAL: Denies fevers, chills, or night sweats. No unintentional weight loss reported. NEUROLOGICAL: Complain of generalized body weakness Denies headache, amaurosis fugax,, sensory deficit, vertigo/spinning sensation, gait abnormalities, or tremors. ENT: No hearing loss, otalgia, otorrhea, rhinitis, rhinorrhea, hoarseness, or sore throat. CARDIOVASCULAR: Denies any exertional angina, dyspnea on exertion, orthopnea, paroxysmal nocturnal dyspnea, palpitations, life-threatening arrhythmias, claudication. PULMONARY: Denies any shortness of breath, cough, phlegm/sputum, hemoptysis, pleuritic chest pain. SLEEP: Denies morning headaches, daytime somnolence or napping. Denies difficulty falling asleep, staying asleep, waking from sleep. Denies knowledge of snoring. GASTROINTESTINAL: Complain of loss of appetite Denies any type of dysphagia to either liquids or solids. Denies nausea, vomiting, pyrosis, early satiety, abdominal pain, diarrhea, constipation, or changes in stool consistency or caliber. Denies coffee-ground emesis, hematemesis, hematochezia, or melanotic stools. GENITOURINARY: Denies frequency, urgency, nocturia, hematuria or incontinence (Storage/Irritative symptoms.) Low urinary stream, straining to void, urinary intermittency or hesitancy, splitting of the voiding stream, terminal dribbling. ENDOCRINOLOGIC: Denies polyuria, polydipsia, polyphagia or heat/cold intolerances. HEMATOLOGIC: Denies thrombophilia/previous clots, or coagulopathy/bleeding disorders. ONCOLOGIC: Denies personal history of malignancy. DERMATOLOGIC: Denies rashes or pruritus. PSYCHIATRIC: Denies any suicidal or homicidal ideation. Denies hallucinations. PHYSICAL EXAM GENERAL APPEARANCE: The patient remains confused. Withdrawing to painful stimulation. NEUROLOGICAL: Cranial nerves II-XII grossly intact. Motor is 5/5 in bilateral upper and lower extremities proximal to distal. No sensory deficits. HEENT: Face is symmetric. Pupils are equal and reactive. Extraocular movements are intact. NECK: Supple. No JVD. No thyromegaly. No submental, submandibular, pre- /postauricular, occipital or supraclavicular lymphadenopathy. CHEST: Normal chest expansion. No Telemetry. LUNGS: Absence of any rales, rhonchi or any wheezing. CARDIOVASCULAR: Regular. S1 and S2 normal. No appreciable rubs, murmurs or gallops. ABDOMEN: Soft, nontender, and nondistended. There is no rebound, voluntary guarding, or rigidity. : Deferred. No Gallagher. EXTREMITIES: Non-edematous and not cyanotic. No clubbing. Good capillary refill. SKIN: No skin breakdown. Vital Signs (last 8hr) Date Time Temp Pulse Resp B/P (MAP) Pulse Ox O2 Delivery O2 Flow Rate FiO2 06/22/24 12:00 97.7 63 19 149/68 97 Nasal Cannula 3.0 06/22/24 07:41 97.5 62 19 163/78 99 Nasal Cannula 3.0 06/22/24 05:16 76 20 155/83 99 Nasal Cannula 2.0 LABS: Laboratory: Test 06/22/24 11:28 06/22/24 03:45 06/21/24 16:20 06/21/24 15:17 Range/Units Whole Blood Glucose 197 H 70-110 MG/DL White Blood Count 7.2 4.8-10.8 K/uL Red Blood Count 2.80 L 4.50-6.20 MIL/uL Hemoglobin 8.6 L 14.0-18.0 g/dL Hematocrit 24.9 L 42-54 % Mean Corpuscular Volume 88.9 79-99 fL Mean Corpuscular Hemoglobin 30.7 27.0-33.0 pg Mean Corpuscular Hemoglobin Concent 34.5 32.0-36.0 g/dL Red Cell Distribution Width 15.3 11.0-15.5 % Platelet Count 82 L 130-400 K/uL Mean Platelet Volume 10.8 H 7.5-10.5 fL Immature Granulocyte % (Auto) 1.8 H 0-1 % Neutrophils (%) (Auto) 75.7 40.0-77.0 % Lymphocytes (%) (Auto) 8.3 L 21.0-51.0 % Monocytes (%) (Auto) 14.0 H 3.0-13.0 % Eosinophils (%) (Auto) 0.1 0.0-8.0 % Basophils (%) (Auto) 0.1 0.0-5.0 % Neutrophils # (Auto) 5.5 1.8-7.7 K/uL Lymphocytes # (Auto) 0.6 L 1.0-4.8 K/uL Monocytes # (Auto) 1.0 0.1-1.0 K/uL Eosinophils # (Auto) 0.01 0.00-0.70 K/uL Basophils # (Auto) 0.01 0.00-0.20 K/uL Absolute Immature Granulocyte (auto 0.13 0-1 K/uL Nucleated Red Blood Cells 0.0 0.0-0.19 % Sodium Level 146 H 136-145 mmol/L Potassium Level 2.7 *L 3.5-5.1 mmol/L Chloride Level 100 L 101-111 mmol/L Carbon Dioxide Level 29 21-32 mmol/L Blood Urea Nitrogen 118 *H 7-18 mg/dL Creatinine 8.5 *H 0.5-1.3 mg/dL Glomerular Filtration Rate Calc 6 >90 mL/min Random Glucose 182 H 70-105 mg/dL Total Calcium 7.6 L 8.5-10.1 mg/dL Phosphorus Level 6.1 H 2.5-4.9 mg/dL Magnesium Level 1.80 1.80-2.40 mg/dL Total Bilirubin 0.6 0.2-1.0 mg/dL Aspartate Amino Transf (AST/SGOT) 27 10-37 U/L Alanine Aminotransferase (ALT/SGPT) 21 12-78 U/L Alkaline Phosphatase 115 50-136 U/L Total Protein 6.1 6.0-8.3 g/dL Albumin 2.3 L 3.5-5.0 g/dL Bedside Glucose Comment Notified Nurse Urine Color COLORLESS YELLOW Urine Appearance CLEAR CLEAR Urine pH 6.0 5.0-8.0 Urine Specific [place] 1.009 1.001-1.031 Urine Protein 70 H NEGATIVE mg/dL Urine Glucose (UA) 50 H NEGATIVE mg/dL Urine Ketones 20 H NEGATIVE mg/dL Urine Occult Blood MODERATE H NEGATIVE Urine Nitrate NEGATIVE NEGATIVE Urine Bilirubin NEGATIVE NEGATIVE mg/dL Urine Urobilinogen 0.2 0.2-1.0 mg/dL Urine Leukocyte Esterase NEGATIVE NEGATIVE Ronaldo/uL Urine RBC 6-10 H 0-1 /HPF Urine WBC 2-5 H 0-1 /HPF Urine Bacteria FEW None Seen /HPF Urine Random Total Protein 130.1 H 0-11.9 mg/dL Current Medications Medications (Trade) Dose Ordered Sig/Roderick Route PRN Reason Start Time Stop Time Status Last Admin Dose Admin Albuterol Sulfate (Proventil 0.083% 2.5mg/3ml) 10 mg ONCE STAT IH 06/17/24 04:05 06/17/24 04:12 DC 06/17/24 04:31 10 MG Amlodipine Besylate (NorvASC 5MG TAB) 5 mg BID PO 06/22/24 09:00 07/22/24 08:59 06/22/24 10:40 5 MG Calcium Gluconate (Calcium Gluc 1gm Vial) 1 gm AD STAT IV 06/17/24 04:05 06/17/24 04:12 DC 06/17/24 04:21 1 GM Cefepime HCl (MAXipime 1 GM vial) 0.25 gm Q24H IVPB 06/17/24 04:00 06/18/24 04:06 DC 06/17/24 04:58 0.25 GM Cefepime HCl (MAXipime 1 GM vial) 1 gm Q24H IVPB 06/20/24 05:00 06/30/24 04:59 06/22/24 03:12 1 GM Cefepime HCl 0.25 gm/Sodium Chloride 50 ml @ 100 mls/hr Q24H IVPB 06/18/24 04:30 06/19/24 10:58 DC 06/19/24 05:26 100 MLS/HR Dextrose (D50w) 50 ml AD PRN IV HYPOGLYCEMIA PROTOCOL 06/17/24 01:00 06/17/24 01:01 DC Dextrose (D50w) 50 ml AD PRN IV HYPOGLYCEMIA PROTOCOL 06/17/24 01:00 07/17/24 00:59 Dextrose (D50w) 50 ml ONCE STAT IV 06/17/24 04:05 06/17/24 04:12 DC 06/17/24 04:21 50 ML Famotidine (Pepcid 20mg Vial) 20 mg Q48H IV 06/17/24 01:00 07/17/24 00:59 06/20/24 23:50 20 MG Furosemide (LASix 40MG VIAL) 40 mg Q8H IV 06/19/24 18:30 06/20/24 18:31 DC 06/20/24 18:54 40 MG Glucagon (Glucagon 1mg Kit) 1 mg AD PRN IM HYPOGLYCEMIA PROTOCOL 06/17/24 01:00 06/17/24 01:01 DC Glucagon (Glucagon 1mg Kit) 1 mg AD PRN IM HYPOGLYCEMIA PROTOCOL 06/17/24 01:00 07/17/24 00:59 Hydralazine HCl (SUBORXVwde41RI TAB) 25 mg TID PO 06/22/24 09:00 07/22/24 08:59 06/22/24 10:43 25 MG Hydrocortisone Sodium Succinate (Solu-corTEF 100MG) 50 mg Q8H IV 06/18/24 11:30 07/18/24 11:29 06/22/24 03:12 50 MG Hydromorphone HCl (DiLAUDid 0.5MG INJ) 0.5 mg Q4H PRN IVP SEVERE PAIN (7-10) 06/20/24 13:00 06/25/24 12:59 06/21/24 23:50 0.5 MG Insulin Human Regular (humuLIN R 100 UNIT/ML 3ML) 10 unit ONCE STAT IV 06/17/24 04:05 06/17/24 04:12 DC 06/17/24 04:28 10 UNIT Insulin Human Regular (humuLIN R 100 UNIT/ML 3ML) INSULIN SLIDING SCAL... ACHS SQ 06/17/24 07:30 07/17/24 07:29 06/21/24 16:50 3 UNIT Lactated Ringer's 1,000 ml @ 130 mls/hr Q7H42M IV 06/21/24 09:30 07/21/24 09:29 06/22/24 03:12 130 MLS/HR Leptospermum Honey (Medihoney) 1 appl DAILY TP 06/19/24 09:00 07/19/24 08:59 06/21/24 09:43 1 APPL Metronidazole/ Sodium Chloride (flaGYL) 500 mg Q8H IV 06/17/24 05:00 06/27/24 04:59 06/22/24 04:23 500 MG Micafungin Sodium 100 ml @ 100 mls/hr Q24H IV 06/18/24 00:00 07/18/24 00:00 06/21/24 23:22 100 MLS/HR Norepinephrine 250 ml @ 0 mls/hr PROTOCOL IV 06/16/24 22:00 06/22/24 07:20 DC 06/17/24 05:33 24.5 MLS/HR Pharmacy Profile Note (Lace Assessment) 1 each AD MISC 06/19/24 15:30 06/20/24 12:49 DC Pharmacy Profile Note (Pharmacy Communication) 1 each ONCE MISC 06/17/24 23:00 06/19/24 07:13 DC 06/17/24 23:31 1 EACH Phenylephrine HCl 100 mg/Sodium Chloride 250 ml @ 0 mls/hr AD PRN IV TITRATE 06/17/24 10:30 06/22/24 07:20 DC 06/18/24 05:48 27 MLS/HR Piperacillin Sod/ Tazobactam Sod (Zosyn 3.375gm+NS 50ml) 3.375 gm Q12H IV 06/16/24 21:30 06/17/24 01:03 DC 06/16/24 21:42 3.375 GM Piperacillin Sod/ Tazobactam Sod (Zosyn 3.375gm+NS 50ml) 3.375 gm Q12H IVPB 06/17/24 01:00 06/17/24 04:00 DC 06/17/24 02:54 3.375 GM Potassium Chloride 100 ml @ 100 mls/hr AD PRN IV POTASSIUM PROTOCOL 06/21/24 08:00 07/21/24 07:59 06/22/24 06:11 100 MLS/HR Potassium Chloride (K-Dur/Klor-Con 20meq) 40 meq BID PO 06/22/24 09:00 06/22/24 21:01 06/22/24 10:40 40 MEQ Sodium Bicarbonate / Dextrose 1,000 ml @ 0 mls/hr Q0M IVP 06/17/24 05:00 06/17/24 04:58 DC Sodium Bicarbonate 150 meq/Dextrose 1,150 ml @ 50 mls/hr Q23H IVP 06/18/24 08:00 06/19/24 12:24 DC 06/18/24 20:23 100 MLS/HR Sodium Bicarbonate 150 meq/Dextrose 1,150 ml @ 100 mls/hr [id number] IVP 06/17/24 05:00 06/18/24 04:44 DC 06/17/24 21:00 100 MLS/HR Sodium Polystyrene Sulfonate (kayEXALate 15 GM/60 ML) 15 gm Q2H PO 06/16/24 21:30 06/16/24 23:31 DC 06/16/24 22:21 15 GM Sodium Chloride 1,000 ml @ 150 mls/hr Q6H40M IV 06/16/24 23:00 06/17/24 09:10 DC 06/17/24 05:15 150 MLS/HR Sodium Chloride (NS 50ml) 50 ml AD IV 06/17/24 01:00 06/17/24 01:05 DC Thiamine HCl (Vitamin B-1) 100 mg DAILY IVP 06/17/24 09:00 07/17/24 08:59 06/22/24 10:40 100 MG Vancomycin HCl (Vancomycin 750mg) 750 mg Q96H IVPB 06/20/24 22:00 06/17/24 14:00 DC Vancomycin HCl (Vancomycin Protocol) 1 each AD IV 06/17/24 01:30 06/17/24 14:01 DC DIAGNOSTICS / RADIOLOGY: [ ] ASSESSMENT: Severe metabolic acidosis, resolved POA Septic shock requiring vasopressor, resolved POA Fungemia Acute on chronic renal failure POA Hyperkalemia POA Chronic anemia POA Acute thrombocytopenia POA Failure to thrive POA Acute encephalopathy, improving DM2 last A1c unknown Dyslipidemia Peripheral artery disease Osteomyelitis with recent 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 Continue to follow Nephrology input recommendation terms of renal replacement therapy Start LR @ 130 cc/hr Start clear liquid diet Continue furosemide GI consulted, appreciate recommendations Hematology consulted, appreciate recommendations Anemia workup. Transfuse as needed. Hematology consultation requested per Follow critical care input and recommendation Disposition: Pending improvement renal function, adjustment of antibiotics Greater than 35 minutes ICUt julian spent in care of patient AL CARDONA MD Jun 22, 2024 13:00
--- NOTE | 2024-06-22 13:05 | NUR ---
[facility] Follow-up: Patient re-assessed by wound healing team. Assessment and recommendations provided to primary nurse. Education provided. Wound care done. Addendum: 06/23/24 at 1541 by MATT PEREZ RN RN/ Amended: Links added.
--- NOTE | 2024-06-22 13:20 | CONS ---
GASTROENTEROLOGY CONSULTATION NOTE Date of Consultation: Jun 22, 2024 Time of Consultation: 13:20 History of Present Illness: This is a 69-year-old male with past medical history of osteomyelitis status post left 4th and 5th toe and right third toe amputation, anemia, chronic pain, diabetes, hypertension who was brought in due to poor appetite and low blood counts. Patient tested positive for COVID 3 weeks prior to admission. He was hypotensive started on pressors. We were consulted due to positive FOBT and anemia. Hemoglobin on admission was 9.7 trended down to 6.1. Hemoglobin today is 8.6 with a platelet count of 82 and INR 1.37 he was downgraded to medical arabella or. Review of Systems: CONSTITUTIONAL: No malaise or change in sensation of wellbeing. ENMT: No rhinorrhea, otorrhea, sinus pain, ear ache. CARDIOVASCULAR: No angina, palpitations, orthopnea or paroxysmal dyspnea. RESPIRATORY: No SOB. GASTROINTESTINAL: No abdominal pain, nausea, vomiting, diarrhea, hematemesis, melena or change in the patient's habitual bowel movements consistency/number. GENITOURINARY: No dysuria, hematuria or change in bladder continence. MUSCULOSKELETAL: No new muscle pain or decrease in muscular strength. No new joint swelling, redness or tenderness. SKIN: No new rash. Past Medical History: PAST MEDICAL HISTORY: [osteomyelitis S/P left 4 &5 th toe and right 3rd toe amputation, anemia, chronic pain,diabetes and hypertension ] PAST SURGICAL HISTORY: [ Left 4th and 5th toe amputation, right great and 3rd toe amputation ] PAST SOCIAL HISTORY: [ Patient coming from [facility]. Patient denies smoking alcohol and recreational drug use ] FAMILY HISTORY: [ Noncontributory ] Coded Allergies: No Known Drug Allergies (Unverified Allergy, Unknown, 05/05/24) Physical Exam: GEN: Awake, alert, oriented in person, time and place, and in no acute distress. HEENT: No sinus tenderness. Tympanic membranes were not examined. No rhinorrhea. Oral pharyngeal mucosa is pink, moist and within normal limits. Neck is supple with no cervical lymphadenopathy, thyromegaly or JVD. CHEST: Inspection, palpation and percussion of the chest were unremarkable. Lung auscultation revealed normal breath sounds bilaterally. CARDIAC: PMI is within normal limits. Heart sounds are regular. Normal S1, S2. No gallop or murmur. ABD: Soft, non-tender and not distended. No peritoneal signs on palpation. No organomegaly. Normal bowel sounds. EXT: No cyanosis or clubbing. No edema. SKIN: Intact. No rashes. JOINTS: No evidence of synovitis or acute arthritis. NEURO: Alert and oriented to name, place and person. Cranial nerve examination is unremarkable. No focal motor deficits. Normal speech. Gait is normal. Strength is normal. Vital Sign (Last 24 Hours) 06/22/24 06/22/24 04:25 12:00 Temp 97.7 Pulse 63 Resp 19 B/P (MAP) 149/68 Pulse Ox 97 O2 Delivery Nasal Cannula O2 Flow Rate 3.0 FiO2 28 Intake & Output (last 24hrs) 06/21/24 06/21/24 06/22/24 15:00 23:00 07:00 Intake Total 100.0 ml 1470.0 ml 1641.0 ml Output Total 1200 ml 1100 ml Balance 100.0 ml 270.0 ml 541.0 ml Laboratory: [ ] Laboratory: Test 06/22/24 11:28 06/22/24 03:45 06/21/24 16:20 06/21/24 15:17 Range/Units Whole Blood Glucose 197 H 70-110 MG/DL White Blood Count 7.2 4.8-10.8 K/uL Red Blood Count 2.80 L 4.50-6.20 MIL/uL Hemoglobin 8.6 L 14.0-18.0 g/dL Hematocrit 24.9 L 42-54 % Mean Corpuscular Volume 88.9 79-99 fL Mean Corpuscular Hemoglobin 30.7 27.0-33.0 pg Mean Corpuscular Hemoglobin Concent 34.5 32.0-36.0 g/dL Red Cell Distribution Width 15.3 11.0-15.5 % Platelet Count 82 L 130-400 K/uL Mean Platelet Volume 10.8 H 7.5-10.5 fL Immature Granulocyte % (Auto) 1.8 H 0-1 % Neutrophils (%) (Auto) 75.7 40.0-77.0 % Lymphocytes (%) (Auto) 8.3 L 21.0-51.0 % Monocytes (%) (Auto) 14.0 H 3.0-13.0 % Eosinophils (%) (Auto) 0.1 0.0-8.0 % Basophils (%) (Auto) 0.1 0.0-5.0 % Neutrophils # (Auto) 5.5 1.8-7.7 K/uL Lymphocytes # (Auto) 0.6 L 1.0-4.8 K/uL Monocytes # (Auto) 1.0 0.1-1.0 K/uL Eosinophils # (Auto) 0.01 0.00-0.70 K/uL Basophils # (Auto) 0.01 0.00-0.20 K/uL Absolute Immature Granulocyte (auto 0.13 0-1 K/uL Nucleated Red Blood Cells 0.0 0.0-0.19 % Sodium Level 146 H 136-145 mmol/L Potassium Level 2.7 *L 3.5-5.1 mmol/L Chloride Level 100 L 101-111 mmol/L Carbon Dioxide Level 29 21-32 mmol/L Blood Urea Nitrogen 118 *H 7-18 mg/dL Creatinine 8.5 *H 0.5-1.3 mg/dL Glomerular Filtration Rate Calc 6 >90 mL/min Random Glucose 182 H 70-105 mg/dL Total Calcium 7.6 L 8.5-10.1 mg/dL Phosphorus Level 6.1 H 2.5-4.9 mg/dL Magnesium Level 1.80 1.80-2.40 mg/dL Total Bilirubin 0.6 0.2-1.0 mg/dL Aspartate Amino Transf (AST/SGOT) 27 10-37 U/L Alanine Aminotransferase (ALT/SGPT) 21 12-78 U/L Alkaline Phosphatase 115 50-136 U/L Total Protein 6.1 6.0-8.3 g/dL Albumin 2.3 L 3.5-5.0 g/dL Bedside Glucose Comment Notified Nurse Urine Color COLORLESS YELLOW Urine Appearance CLEAR CLEAR Urine pH 6.0 5.0-8.0 Urine Specific [place] 1.009 1.001-1.031 Urine Protein 70 H NEGATIVE mg/dL Urine Glucose (UA) 50 H NEGATIVE mg/dL Urine Ketones 20 H NEGATIVE mg/dL Urine Occult Blood MODERATE H NEGATIVE Urine Nitrate NEGATIVE NEGATIVE Urine Bilirubin NEGATIVE NEGATIVE mg/dL Urine Urobilinogen 0.2 0.2-1.0 mg/dL Urine Leukocyte Esterase NEGATIVE NEGATIVE Ronaldo/uL Urine RBC 6-10 H 0-1 /HPF Urine WBC 2-5 H 0-1 /HPF Urine Bacteria FEW None Seen /HPF Urine Random Total Protein 130.1 H 0-11.9 mg/dL Current Medications Medications (Trade) Dose Ordered Sig/Roderick Route PRN Reason Start Time Stop Time Status Last Admin Dose Admin Albuterol Sulfate (Proventil 0.083% 2.5mg/3ml) 10 mg ONCE STAT IH 06/17/24 04:05 06/17/24 04:12 DC 06/17/24 04:31 10 MG Amlodipine Besylate (NorvASC 5MG TAB) 5 mg BID PO 06/22/24 09:00 07/22/24 08:59 06/22/24 10:40 5 MG Calcium Gluconate (Calcium Gluc 1gm Vial) 1 gm AD STAT IV 06/17/24 04:05 06/17/24 04:12 DC 06/17/24 04:21 1 GM Cefepime HCl (MAXipime 1 GM vial) 0.25 gm Q24H IVPB 06/17/24 04:00 06/18/24 04:06 DC 06/17/24 04:58 0.25 GM Cefepime HCl (MAXipime 1 GM vial) 1 gm Q24H IVPB 06/20/24 05:00 06/30/24 04:59 06/22/24 03:12 1 GM Cefepime HCl 0.25 gm/Sodium Chloride 50 ml @ 100 mls/hr Q24H IVPB 06/18/24 04:30 06/19/24 10:58 DC 06/19/24 05:26 100 MLS/HR Dextrose (D50w) 50 ml AD PRN IV HYPOGLYCEMIA PROTOCOL 06/17/24 01:00 06/17/24 01:01 DC Dextrose (D50w) 50 ml AD PRN IV HYPOGLYCEMIA PROTOCOL 06/17/24 01:00 07/17/24 00:59 Dextrose (D50w) 50 ml ONCE STAT IV 06/17/24 04:05 06/17/24 04:12 DC 06/17/24 04:21 50 ML Famotidine (Pepcid 20mg Vial) 20 mg Q48H IV 06/17/24 01:00 07/17/24 00:59 06/20/24 23:50 20 MG Furosemide (LASix 40MG VIAL) 40 mg Q8H IV 06/19/24 18:30 06/20/24 18:31 DC 06/20/24 18:54 40 MG Glucagon (Glucagon 1mg Kit) 1 mg AD PRN IM HYPOGLYCEMIA PROTOCOL 06/17/24 01:00 06/17/24 01:01 DC Glucagon (Glucagon 1mg Kit) 1 mg AD PRN IM HYPOGLYCEMIA PROTOCOL 06/17/24 01:00 07/17/24 00:59 Hydralazine HCl ([id number] TAB) 25 mg TID PO 06/22/24 09:00 07/22/24 08:59 06/22/24 10:43 25 MG Hydrocortisone Sodium Succinate (Solu-corTEF 100MG) 50 mg Q8H IV 06/18/24 11:30 07/18/24 11:29 06/22/24 03:12 50 MG Hydromorphone HCl (DiLAUDid 0.5MG INJ) 0.5 mg Q4H PRN IVP SEVERE PAIN (7-10) 06/20/24 13:00 06/25/24 12:59 06/21/24 23:50 0.5 MG Insulin Human Regular (humuLIN R 100 UNIT/ML 3ML) 10 unit ONCE STAT IV 06/17/24 04:05 06/17/24 04:12 DC 06/17/24 04:28 10 UNIT Insulin Human Regular (humuLIN R 100 UNIT/ML 3ML) INSULIN SLIDING SCAL... ACHS SQ 06/17/24 07:30 07/17/24 07:29 06/21/24 16:50 3 UNIT Lactated Ringer's 1,000 ml @ 130 mls/hr Q7H42M IV 06/21/24 09:30 07/21/24 09:29 06/22/24 03:12 130 MLS/HR Leptospermum Honey (Medihoney) 1 appl DAILY TP 06/19/24 09:00 07/19/24 08:59 06/21/24 09:43 1 APPL Metronidazole/ Sodium Chloride (flaGYL) 500 mg Q8H IV 06/17/24 05:00 06/27/24 04:59 06/22/24 04:23 500 MG Micafungin Sodium 100 ml @ 100 mls/hr Q24H IV 06/18/24 00:00 07/18/24 00:00 06/21/24 23:22 100 MLS/HR Norepinephrine 250 ml @ 0 mls/hr PROTOCOL IV 06/16/24 22:00 06/22/24 07:20 DC 06/17/24 05:33 24.5 MLS/HR Pharmacy Profile Note (Lace Assessment) 1 each AD MISC 06/19/24 15:30 06/20/24 12:49 DC Pharmacy Profile Note (Pharmacy Communication) 1 each ONCE MISC 06/17/24 23:00 06/19/24 07:13 DC 06/17/24 23:31 1 EACH Phenylephrine HCl 100 mg/Sodium Chloride 250 ml @ 0 mls/hr AD PRN IV TITRATE 06/17/24 10:30 06/22/24 07:20 DC 06/18/24 05:48 27 MLS/HR Piperacillin Sod/ Tazobactam Sod (Zosyn 3.375gm+NS 50ml) 3.375 gm Q12H IV 06/16/24 21:30 06/17/24 01:03 DC 06/16/24 21:42 3.375 GM Piperacillin Sod/ Tazobactam Sod (Zosyn 3.375gm+NS 50ml) 3.375 gm Q12H IVPB 06/17/24 01:00 06/17/24 04:00 DC 06/17/24 02:54 3.375 GM Potassium Chloride 100 ml @ 100 mls/hr AD PRN IV POTASSIUM PROTOCOL 06/21/24 08:00 07/21/24 07:59 06/22/24 06:11 100 MLS/HR Potassium Chloride (K-Dur/Klor-Con 20meq) 40 meq BID PO 06/22/24 09:00 06/22/24 21:01 06/22/24 10:40 40 MEQ Sodium Bicarbonate / Dextrose 1,000 ml @ 0 mls/hr Q0M IVP 06/17/24 05:00 06/17/24 04:58 DC Sodium Bicarbonate 150 meq/Dextrose 1,150 ml @ 50 mls/hr Q23H IVP 06/18/24 08:00 06/19/24 12:24 DC 06/18/24 20:23 100 MLS/HR Sodium Bicarbonate 150 meq/Dextrose 1,150 ml @ 100 mls/hr [id number] IVP 06/17/24 05:00 06/18/24 04:44 DC 06/17/24 21:00 100 MLS/HR Sodium Polystyrene Sulfonate (kayEXALate 15 GM/60 ML) 15 gm Q2H PO 06/16/24 21:30 06/16/24 23:31 DC 06/16/24 22:21 15 GM Sodium Chloride 1,000 ml @ 150 mls/hr Q6H40M IV 06/16/24 23:00 06/17/24 09:10 DC 06/17/24 05:15 150 MLS/HR Sodium Chloride (NS 50ml) 50 ml AD IV 06/17/24 01:00 06/17/24 01:05 DC Thiamine HCl (Vitamin B-1) 100 mg DAILY IVP 06/17/24 09:00 07/17/24 08:59 06/22/24 10:40 100 MG Vancomycin HCl (Vancomycin 750mg) 750 mg Q96H IVPB 06/20/24 22:00 06/17/24 14:00 DC Vancomycin HCl (Vancomycin Protocol) 1 each AD IV 06/17/24 01:30 06/17/24 14:01 DC Diagnostics / Radiology: [COPY/PASTE HERE IF NO REPORTS PLEASE DELETE SECTION] Assessment: Positive FOBT Acute blood loss anemia HTN DM Plan: EGD in am Continue GI prophylaxis Advance diet as tolerated Avoid NSAIDs Antireflux measures Monitor H&H and transfuse as needed Call with questions, concerns or change in clinical status Patient to follow-up at clinic post discharge Thank you for this consult ANGEL BURDEN [employer] WORK[employer] Jun 22, 2024 13:20
--- NOTE | 2024-06-22 16:22 | PN ---
INFECTIOUS DISEASE PROGRESS NOTE Date of Service: Jun 22, 2024 SUBJECTIVE: Patient was seen and examined at bedside in room 308. Patient is awake and alert and able to communicate basic needs. The final left foot wound culture results came back positive for mullins resistant organism Acinetobacter baumannii. We will discontinue cefepime and start patient on Tygacil 100 mg IV x 1 then Tygacil 50 mg IV q.12. Patient's blood culture grew Alicia tropicalis and patient is currently on micafungin 100 mg IV daily. No fever, temperature is 97.7� and the WBC of 7.2. PHYSICAL EXAM EYES: Anicteric. Pupils equal and reactive. HENT: No oral thrush seen, moist Oral mucosa NECK: Supple, no JVD or thyromegaly. LUNGS: Good air entry. No rales, no rhonchi. CARDIOVASCULAR: S1, S2 regular. No murmur heard. ABDOMEN: Soft, non tender, bowel sounds present, no organomegaly CENTRAL NERVOUS SYSTEM: Awake, alert, oriented x 2. SKIN: No rashes, no swelling. LYMPHATICS: No peripheral lymphadenopathy MUSCULOSKELETAL: No joint swelling, erythema or tenderness. EXTREMITIES: No cyanosis or clubbing. 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 BACK: No deformity, no pressure ulcer. GENITOURINARY: No dysuria or hematuria. Vital Sign (Last 12 Hours) 06/22/24 06/22/24 06/22/24 06/22/24 04:25 05:16 07:41 12:00 Temp 98.1 97.5 97.7 Pulse 65 76 62 63 Resp 19 B/P (MAP) 162/77 155/83 163/78 149/68 Pulse Ox 99 99 99 97 O2 Delivery Nasal Cannula Nasal Cannula Nasal Cannula Nasal Cannula O2 Flow Rate 3.0 2.0 3.0 3.0 FiO2 28 Intake & Output (last 24hrs) 06/21/24 06/21/24 06/22/24 15:00 23:00 07:00 Intake Total 100.0 ml 1470.0 ml 1641.0 ml Output Total 1200 ml 1100 ml Balance 100.0 ml 270.0 ml 541.0 ml LABS: Laboratory: Test 06/22/24 11:28 06/22/24 03:45 06/21/24 16:20 06/21/24 15:17 Range/Units Whole Blood Glucose 197 H 70-110 MG/DL White Blood Count 7.2 4.8-10.8 K/uL Red Blood Count 2.80 L 4.50-6.20 MIL/uL Hemoglobin 8.6 L 14.0-18.0 g/dL Hematocrit 24.9 L 42-54 % Mean Corpuscular Volume 88.9 79-99 fL Mean Corpuscular Hemoglobin 30.7 27.0-33.0 pg Mean Corpuscular Hemoglobin Concent 34.5 32.0-36.0 g/dL Red Cell Distribution Width 15.3 11.0-15.5 % Platelet Count 82 L 130-400 K/uL Mean Platelet Volume 10.8 H 7.5-10.5 fL Immature Granulocyte % (Auto) 1.8 H 0-1 % Neutrophils (%) (Auto) 75.7 40.0-77.0 % Lymphocytes (%) (Auto) 8.3 L 21.0-51.0 % Monocytes (%) (Auto) 14.0 H 3.0-13.0 % Eosinophils (%) (Auto) 0.1 0.0-8.0 % Basophils (%) (Auto) 0.1 0.0-5.0 % Neutrophils # (Auto) 5.5 1.8-7.7 K/uL Lymphocytes # (Auto) 0.6 L 1.0-4.8 K/uL Monocytes # (Auto) 1.0 0.1-1.0 K/uL Eosinophils # (Auto) 0.01 0.00-0.70 K/uL Basophils # (Auto) 0.01 0.00-0.20 K/uL Absolute Immature Granulocyte (auto 0.13 0-1 K/uL Nucleated Red Blood Cells 0.0 0.0-0.19 % Sodium Level 146 H 136-145 mmol/L Potassium Level 2.7 *L 3.5-5.1 mmol/L Chloride Level 100 L 101-111 mmol/L Carbon Dioxide Level 29 21-32 mmol/L Blood Urea Nitrogen 118 *H 7-18 mg/dL Creatinine 8.5 *H 0.5-1.3 mg/dL Glomerular Filtration Rate Calc 6 >90 mL/min Random Glucose 182 H 70-105 mg/dL Total Calcium 7.6 L 8.5-10.1 mg/dL Phosphorus Level 6.1 H 2.5-4.9 mg/dL Magnesium Level 1.80 1.80-2.40 mg/dL Total Bilirubin 0.6 0.2-1.0 mg/dL Aspartate Amino Transf (AST/SGOT) 27 10-37 U/L Alanine Aminotransferase (ALT/SGPT) 21 12-78 U/L Alkaline Phosphatase 115 50-136 U/L Total Protein 6.1 6.0-8.3 g/dL Albumin 2.3 L 3.5-5.0 g/dL Bedside Glucose Comment Notified Nurse Urine Color COLORLESS YELLOW Urine Appearance CLEAR CLEAR Urine pH 6.0 5.0-8.0 Urine Specific [place] 1.009 1.001-1.031 Urine Protein 70 H NEGATIVE mg/dL Urine Glucose (UA) 50 H NEGATIVE mg/dL Urine Ketones 20 H NEGATIVE mg/dL Urine Occult Blood MODERATE H NEGATIVE Urine Nitrate NEGATIVE NEGATIVE Urine Bilirubin NEGATIVE NEGATIVE mg/dL Urine Urobilinogen 0.2 0.2-1.0 mg/dL Urine Leukocyte Esterase NEGATIVE NEGATIVE Ronaldo/uL Urine RBC 6-10 H 0-1 /HPF Urine WBC 2-5 H 0-1 /HPF Urine Bacteria FEW None Seen /HPF Urine Random Total Protein 130.1 H 0-11.9 mg/dL DIAGNOSTICS / RADIOLOGY: PATIENT: SELENE HALL ACCT: [id number] LOC: [facility] U: [id number] AGE/SX: 69/M ROOM: 218 RE06/17/[address]: CHRIS MARKS MD : 1955 BED: 1 DIS: STATUS: ADM IN TLOC: SPEC: [id number] JAGUAR: 06/16/24 STATUS: COMP REQ: [id number] RECD: 06/16/[address]: MARY CARR MD SOURCE: BLOOD ENTR: 06/17/[address] [facility] [address]: SELF,REFERRAL [facility]: BLOOD ORDERED: AERO ID & SENS Procedure Result Gina Date-Time AEROBIC ID & SENSITIVITIES Final 06/19/24-1129 [facility] COLONY DESCRIPTION: DAY 1: NO GROWTH DAY 2: YEAST SPECIES; NOT ALICIA ALBICANS PEDIATRIC BOTTLE NO FURTHER WORK-UP DONE ALICIA TROPICALIS Test(s) performed by: [facility] [address] [facility] [address] PATIENT: SELENE HALL ACCT: [id number] LOC: [facility] U: [id number] AGE/SX: 69/M ROOM: [facility] RE06/17/[address]: AL CARDONA MD : 1955 BED: 1 DIS: STATUS: ADM IN TLOC: SPEC: [id number] JAGUAR: 06/18/24-1400 STATUS: COMP REQ: [id number] RECD: 06/18/24-[address]: LALI BOLDEN NP SOURCE: FOOT ENTR: 06/18/24-[address] [facility] [address]: CECIL ROY MD [facility]: FOOT LEFT CHARLIEATLA,BRENDA MARKS,CHRIS SANDERSON,MARYA DILLON,ANNETTE Sales MD SELF,REFERRAL STONE,KVNG Worley MD ORDERED: [facility] CULTURE, AEROBIC CULTURE COMMENTS: Has specimen been collected/obtained? Y Specimen Comment: left foot swab Has specimen been collected/obtained? Y Specimen Comment: left foot swab Procedure Result Gina Date-Time ANAEROBIC CULTURE Final 06/22/24-0609 [facility] COLONY DESCRIPTION: REPORT 1: NO ANAEROBES AT 24-35 HOURS; STUDIES TO CONTINUE REPORT 2: NO ANAEROBES AT 48-59 HOURS; STUDIES TO CONTINUE REPORT 3: NO ANAEROBES AT 72-96 HOURS Test(s) performed by: [facility] [address] [place] [address] AEROBIC CULTURE Final 06/22/24-0904 [facility] MULLINS-RESISTANT ORGANISM CRITICAL RESULT WAS CALLED BY RANDAL COMBS ON 06/22/24 AT 0902. CRITCAL VALUES WERE READ BACK AND ACKNOWLEDGED BY TYLER PHILLIP [place] [place] COLONY DESCRIPTION: REPORT 1: 3+ GRAM NEGATIVE RODS IDENTIFICATION AND SENSITIVITY TO FOLLOW REPORT 2: SLOW-GROWER; RESULTS PENDING REPORT 3: NO FURTHER WORK-UP DONE COMMENTS(R): MULLINS ORGANIM COMMENTS(R): REPEATED AND CONFIRMED ACINETOBACTER BAUMANNII/HAEMOL CONTINUED ON NEXT PAGE RUN DATE: 06/22/24 [facility] PAGE 2 RUN TIME: [id number] [address], [place] [address] Department of Laboratories CHARLIE # [id number] Recruiting Scheduler: Michael Winkler DO Specimen Report SPEC: [id number] PATIENT: SELENE HALL [id number] (Continued) Procedure Result Gina Date-Time AEROBIC CULTURE Final (continued) 06/22/24-903 [facility] RX --------- ---- CEFTAZIDIME >16 R GENTAMICIN >8 R TOBRAMYCIN >8 R AMPICILLIN/SULBACTAM >16/8 R MEROPENEM >8 R TRIMETHOPRIM/SUFLAMETHOXAZOLE >2/38 R ASSESSMENT: Fungemia. 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 Infection with Mullins-Resistant organism. Septic shock, resolving. Anemia requiring blood transfusion. Acute renal failure. Thrombocytopenia. PLAN: Discontinue cefepime. Start tigecycline 100 mg IV x1 then 50 mg IV every 12 hours. Continue micafungin. Continue metronidazole. Continue wound care. Rn Surgery Icu following patient. GI has consulted and evaluated patient. Avoid nephrotoxic medications. This case was reviewed and discussed with my supervising physician and the above assessment and plan was formulated and agreed upon. ATTESTATION BY PHYSICIAN I have seen and examined the patient. I reviewed the documentation, medical decision making, and treatment plan as noted by the mid-level provider above. I agree with the findings and plan of care. CECIL ROY MD, [facility] Jun 22, 2024 16:22
[2024-06-22] MEDS: PHARMACY COMMUNICATION MISC SCH (16:30)
--- NOTE | 2024-06-22 16:41 | NUR ---
Discharge Update: Patient's family does not want patient to be referred back to [facility]. Still pending iv ABX recommendations from Dr. Reed. called Sonia to find out what abx ID will recommend. Patient already has 2 positive cultures, wound and blood cultures. Also Dr. Bowman texted requesting PT and a SNF order. Pt. is pending a GI consult for positive occult blood results. PICC line already in place.
[2024-06-22] MEDS ORDERED: COMPOUND IV MISC 1 EACH IVSOLN MISC PRN (17:00)
[2024-06-22] MEDS ORDERED: COMPOUND IV REFRIGERATED 1 EACH IVSOLN MISC PRN (17:00)
[2024-06-22] MEDS: TIGECYCLINE 100 MG in 0.9%NACL 100ML 100 ML IV SCH (18:51)
[2024-06-22] MEDS: hydroCORTisone SOD SUCCINATE 100 MG/2 ML VIAL IV SCH (19:59)
--- NOTE | 2024-06-22 20:48 | NUR ---
EGD PREP NEW ORDER FOR EGD NOTED, PREP INSTRUCTIONS EDUCATED TO PATIENT. PER PATIENT SISTER IS SIGNING ALL CONSENT FORMS AND WOULD LIKE FOR NURSE TO CALL TO NOTIFY. CALLED AT THIS TIME TO [phone], NO ANSWER, LEFT VOICEMAIL.
--- NOTE | 2024-06-22 20:48 | PN ---
NEPHROLOGY NOTE SUBJECTIVE: The patient has renal failure, anemia, multiple other comorbidities, renal failure is getting worse. The patient has hypokalemia. Creatinine is still elevated. Potassium has been low. The patient has been on intermittent diuretics. The patient has been on broad-spectrum antibiotics including tigecycline. Overall condition is poor. The patient has become nonoliguric with diuretic challenge. The patient has been on broad-spectrum antibiotic with antifungal treatment and Dilaudid. REVIEW OF SYSTEMS: CONSTITUTIONAL: With no fevers, chills, or rigors. HEENT: With no headache oral ulcers, sore throat, or difficulty swallowing. RESPIRATORY: With no cough, expectoration, hemoptysis, or pleuritic pain. CARDIOVASCULAR: Has shortness of breath. No orthopnea or PND. GASTROINTESTINAL: Negative for nausea, vomiting, or diarrhea reported. GENITOURINARY: Negative for dysuria or hematuria. PHYSICAL EXAMINATION: GENERAL: Pale, no other distress or deformities. VITAL SIGNS: Blood pressure has been 149/68, pulse 63, respiratory rate is 19. HEENT: Head is atraumatic, normocephalic. Pupils are round and reactive. Sclerae are anicteric. Conjunctivae not pale. Oral mucosa is not dry. NECK: Supple. No masses or bruits. Thyroid is palpable. CHEST: Shows equal percussion note being resonant in all areas. CARDIAC: Regular rhythm. No rub, no S3 or S4. No parasternal heave. NEUROLOGICAL: The patient is awake, alert, nonfocal. No cranial nerve palsies. BACK: With no tenderness or back deformities. SKIN: No other rash on inspection and palpation. LABORATORY DATA: We have reviewed the labs in detail with an elevated creatinine up to 8.7, BUN is 118, potassium is 2.7. Urine output was reviewed. Old records reviewed. IMAGING STUDIES: Personally reviewed. Abdominopelvic CT has been reviewed. Renal ultrasound reviewed personally. PROBLEMS: The patient has acute renal failure, sepsis and septic shock recently. The patient has underlying multiple other comorbidities including bacteremia with adiel, left foot wound infection with acinetobacter, mullins-resistant organism; anemia; renal failure; and thrombocytopenia. PLAN: * The patient is critically ill, will be monitored. * Will get gentle potassium replacement. * The patient is now on tigecycline. * Micafungin. * Metronidazole. * Follow up closely. No urgent need for dialysis. I have discussed with the family. The patient is nonoliguric and hypokalemic at this time. I will suggest to avoid nonsteroidal drugs and nephrotoxics. I have discussed with Dr. Finn. We have reviewed the old records, external records. We have reviewed the labs, x-rays personally. Followup laps and CBC, CMP, magnesium have been ordered and nonsteroidal drugs to be avoided, contrast to be avoided. We have reviewed the external and previous records in detail, and condition is critically guarded. The patient was seen several times today. Overall condition is poor. I thank you for this patient. TID: [id number] RECEIPT: [id number]
[2024-06-23] VITALS (23 sets, daily range): BP systolic 119–158; BP diastolic 59–90; PULSE 60–77; RESP 15–20; TEMP 97.7–98.6; O2SAT 97
[2024-06-23] MEDS: hydroCORTisone SOD SUCCINATE 100 MG/2 ML VIAL IV SCH (05:10)
[2024-06-23] MEDS: TIGECYCLINE 50 MG in 0.9%NACL 100ML 100 ML IV SCH (05:13)
[2024-06-23 05:15] LABS: BASOPHILS # (AUTO) 0.02 K/uL (0.00-0.20); BASOPHILS % (AUTO) 0.2 % (0.0-5.0); EOSINOPHILS # (AUTO) 0.01 K/uL (0.00-0.70); EOSINOPHILS % (AUTO) 0.1 % (0.0-8.0); IMMATURE GRANULOCYTE ABSOLUTE 0.16 K/uL (0-1); LYMPHOCYTES # (AUTO) 0.6 K/uL (1.0-4.8); LYMPHOCYTES % (AUTO) 7.7 % (21.0-51.0); MEAN CORPUSCULAR HEMOGLOBIN 30.2 pg (27.0-33.0); MEAN CORPUSCULAR HGB CONC 34.6 g/dL (32.0-36.0); MEAN CORPUSCULAR VOLUME 87.2 fL (79-99); MONOCYTES % (AUTO) 12.9 % (3.0-13.0); NEUTROPHILS # (AUTO) 6.2 K/uL (1.8-7.7); NEUTROPHILS % (AUTO) 77.1 % (40.0-77.0); PLATELET COUNT (AUTO) 78 K/uL (130-400); RED BLOOD CELL COUNT(AUTO) 2.98 MIL/uL (4.50-6.20); RED CELL DISTRIBUTION WIDTH 14.9 % (11.0-15.5); WHITE BLOOD COUNT (AUTO) 8.1 K/uL (4.8-10.8)
[2024-06-23 05:29] LABS: CREATININE 7.2 mg/dL (0.5-1.3); MAGNESIUM 1.5 mg/dL (1.80-2.40); PHOSPHORUS 4.5 mg/dL (2.5-4.9); POTASSIUM 3.1 mmol/L (3.5-5.1)
[2024-06-23] MEDS ORDERED: proPOFol 10 MG/ML 20ML VIAL IV ONE ×2 (10:49)
[2024-06-23] MEDS ORDERED: PoTASSium chl 10% ELIXIR 20MEQ 20 MEQ/15 ML UDCUP PO PRN (11:30)
[2024-06-23] MEDS: PEG 3350/NA SULF,BICARB,CL/KCL 4000 ML SOLN PO ONE (12:55)
--- NOTE | 2024-06-23 13:59 | PN ---
NEPHROLOGY PROGRESS NOTE Date/Time Patient Seen: Jun 23, 2024 SUBJECTIVE: This is a 69-year-old male with a past medical history of peripheral artery disease with osteomyelitis S/p left 4th and 5th toe and right 3rd toe amputation, anemia, chronic pain, diabetes mellitus type 2, hypertension, hyperlipidemia, chronic kidney disease, recent COVID-19 infection. He presented to the emergency room via EMS from [facility] with complaints of low platelets, poor appetite and generalized weakness. Influenza and COVID swabs were negative CT of the abdomen showed mild enterocolitis with mild to moderate small and large bowel liquid contents. He was admitted to the ICU for further medical management of septic shock He continues to require vasopressors to maintain blood pressure. Continues with a severe lactic acidosis. Blood cultures were positive for Alicia tropicalis He continues on antibiotics In the emergency room he was noted to have elevated BUN/creatinine and hyperkalemia. Renal function is continues to improve Electrolytes are stable. Urine output was noted Renal ultrasound was noted Hematology evaluation continues for possible TTP He was seen in the medical floor, in no acute distress Family at the bedside Condition remains critical and guarded REVIEW OF SYSTEMS: Unable to obtain due to patient's status PHYSICAL EXAM: GENERAL: Lethargic. No acute distress. Well-nourished. EYES: EOMI. Anicteric. HENT: Moist mucous membranes. No scleral icterus. No cervical lymphadenopathy. LUNGS: Clear to auscultation bilaterally. No accessory muscle use. CARDIOVASCULAR: Regular rate and rhythm. No murmur. No JVD. ABDOMEN: Soft, non-tender and non-distended. No palpable masses. EXTREMITIES: No edema. Non-tender. SKIN: No rashes or lesions. Warm. NEUROLOGIC: No focal neurological deficits. CN II-XII grossly intact, but not individually tested. PSYCHIATRIC: Cooperative. Appropriate mood and affect. LABORATORY: [ ] Hematology Labs: Test 06/23/24 04:37 Range/Units White Blood Count 8.1 4.8-10.8 K/uL Red Blood Count 2.98 L 4.50-6.20 MIL/uL Hemoglobin 9.0 L 14.0-18.0 g/dL Hematocrit 26.0 L 42-54 % Mean Corpuscular Volume 87.2 79-99 fL Mean Corpuscular Hemoglobin 30.2 27.0-33.0 pg Mean Corpuscular Hemoglobin Concent 34.6 32.0-36.0 g/dL Red Cell Distribution Width 14.9 11.0-15.5 % Platelet Count 78 L 130-400 K/uL Mean Platelet Volume 10.5 7.5-10.5 fL Immature Granulocyte % (Auto) 2.0 H 0-1 % Neutrophils (%) (Auto) 77.1 H 40.0-77.0 % Lymphocytes (%) (Auto) 7.7 L 21.0-51.0 % Monocytes (%) (Auto) 12.9 3.0-13.0 % Eosinophils (%) (Auto) 0.1 0.0-8.0 % Basophils (%) (Auto) 0.2 0.0-5.0 % Neutrophils # (Auto) 6.2 1.8-7.7 K/uL Lymphocytes # (Auto) 0.6 L 1.0-4.8 K/uL Monocytes # (Auto) 1.0 0.1-1.0 K/uL Eosinophils # (Auto) 0.01 0.00-0.70 K/uL Basophils # (Auto) 0.02 0.00-0.20 K/uL Absolute Immature Granulocyte (auto 0.16 0-1 K/uL Nucleated Red Blood Cells 0.0 0.0-0.19 % Chemistry Labs: Test 06/23/24 11:25 06/23/24 04:37 06/22/24 03:45 06/21/24 16:20 Range/Units Whole Blood Glucose 190 H 70-110 MG/DL Sodium Level 144 136-145 mmol/L Potassium Level 3.1 L 3.5-5.1 mmol/L Chloride Level 100 L 101-111 mmol/L Carbon Dioxide Level 28 21-32 mmol/L Blood Urea Nitrogen 108 *H 7-18 mg/dL Creatinine 7.2 H 0.5-1.3 mg/dL Glomerular Filtration Rate Calc 8 >90 mL/min Random Glucose 201 H 70-105 mg/dL Total Calcium 7.7 L 8.5-10.1 mg/dL Phosphorus Level 4.5 2.5-4.9 mg/dL Magnesium Level 1.50 L 1.80-2.40 mg/dL Total Bilirubin 0.6 0.2-1.0 mg/dL Aspartate Amino Transf (AST/SGOT) 27 10-37 U/L Alanine Aminotransferase (ALT/SGPT) 21 12-78 U/L Alkaline Phosphatase 115 50-136 U/L Total Protein 6.1 6.0-8.3 g/dL Albumin 2.3 L 3.5-5.0 g/dL Bedside Glucose Comment Notified Nurse DIAGNOSTICS / RADIOLOGY: REASON: SOB ORDERING PHYSICIAN: LALI BOLDEN STRATEGY INTERN PROCEDURE: CXR1VW - CHEST 1VW PORTABLE CHEST RADIOGRAPH INDICATION: SOB COMPARISON: 06/18/2024 FINDINGS: court recording monitor leads overlie the field of view. Tip of right PICC within the SVC. Heart remains enlarged. The pulmonary vascularity and mauricio appear normal. No abnormal pulmonary parenchymal opacity or consolidation identified. No significant pleural effusion noted. No pneumothorax detected. IMPRESSION: Stable cardiac megaly without radiographic evidence for any acute cardiopulmonary process. DICTATED BY: ROLANDO HAN MD DATE: 06/19/24 1011 REASON: SOB ORDERING PHYSICIAN: LALI BOLDEN STRATEGY INTERN PROCEDURE: CXR1VW - CHEST 1VW PORTABLE CHEST RADIOGRAPH INDICATION: SOB COMPARISON: 06/16/2024 FINDINGS: court recording monitor leads overlie the field of view. Patient positioning is not optimal, but the radiologic examination is still believed to be of reasonable diagnostic quality. Stable right PICC. Stable heart size. Mild calcific plaque is present along the aortic arch rosales. The pulmonary vascularity and mauricio appear normal. Suspect very small layering right and very small left pleural effusions with subjacent passive linear opacities. No evidence for consolidation. No pneumothorax detected. IMPRESSION: Suspect very small layering right and very small left pleural effusions with subjacent passive atelectasis. DICTATED BY: ROLANDO HAN MD DATE: 06/19/24 1021 REASON: sob ORDERING PHYSICIAN: LILIAM LACY DIRECTOR OF PAYROLL PROCEDURE: ECHO CMP - ECHO 2-D COMPLETE APPROVED REPORT EXAM: Two-dimensional and M-mode echocardiogram with Doppler and color Doppler. INDICATION ICD: R06.02 Shortness of breath 2D Dimensions RVDd 5.0 cm LVEF(%) 68.3 (>50%) LVED Vol(simp.) 128.0 mL IVSd 1.4 (0.7-1.1cm) FS(%) 38 % LVES Vol(simp.) 51.0 mL LVDd 4.2 (3.8-5.6cm) LA (2D) 4.0 (1.6-4.0cm) LVEF(%, simp.) 60 % PWd 1.5 (0.7-1.1cm) Ao Root(2D) 4.0 (2.0-3.7cm) LA ESV INDEX (BP) 37.99 mL/m2 LVDs 2.6 (2.5-4.0cm) LVOT diam 2.3 (1.8-2.4cm) IVC diam 2.1 cm Deformation Strain Apical 4 -19.0 % Apical 2 -15.0 % Apical 3 -16.0 % Global Strain -17.0 % M-Mode Dimensions EPSS 1.1 cm LA (MM) 4.0 (1.6-4.0cm) Ao Root(MM) 3.0 (2.0-3.7cm) Aortic Valve AoV Vmax 2.5 m/s Ao Peak GR 24.7 mmHg LVOT Vmax 1.5 m/s AoV VTI 0.4 m Ao Mean GR 15.1 mmHg LVOT VTI 0.29 m DEBORA (VMAX) 2.9 cm2 DEBORA (VTI) 2.9 cm2 Mitral Valve MV E Vmax 144.9 cm/s DECEL Time 175 ms MV A Vmax 128.2 cm/s P 1/2 T 58 ms E/A ratio 1.1 MVA (PHT) 3.8 cm2 TDI E/E' Medial 16.1 E/E' Lateral 14.5 Medial E' Peak V 9.00 cm/s Lateral E' Peak V 10.00 cm/s Pulmonary Valve PV Vmax 1.3 m/s Tricuspid Valve TR Vmax 2.7 m/s RAP (EST) 3 mmHg RVSP 32.3 mmHg TR Peak GR 29.3 mmHg Left Ventricle The left ventricle is normal size. GS -17%. Hyoerdynamic LV with normal LV segmental wall motion. Moderate concentric left ventricular hypertrophy. LVEF is 60-65%. Grade 2 diastolic dysfunction. Right Ventricle The right ventricle is moderately dilated, measuring 5.0 cm. The right ventricular systolic function is normal. Atria The left atrium is mildly dilated with an LA ESV index of 38 mL/m�. The right atrium is moderately dilated. Aortic Valve Aortic valve is trileaflet, with mild sclerosis of the left coronary cusp. The aortic valve is seen to open near normally. No aortic regurgitation is present. There is no aortic valvular stenosis. Mitral Valve Mitral valve leaflets open well. Posterior annular and leaflet calcification noted. There is no mitral valve regurgitation noted. There is no mitral valve stenosis. Tricuspid Valve The tricuspid valve is normal in structure. There is trace of tricuspid valve regurgitation noted. Pulmonic Valve The pulmonary valve is normal in structure. There is no pulmonic valvular regurg itation. Great Vessels The aortic root is normal in size. The IVC is normal in size and collapses >50% with inspiration. Pericardium There is no pericardial effusion. Other Information Quality : Adequate Conclusion The left ventricle is normal size. Moderate concentric left ventricular hypertrophy. GS -17%. Hyoerdynamic LV with normal LV segmental wall motion. LVEF is 60-65%. Grade 2 diastolic dysfunction. Aortic valve is trileaflet, with mild sclerosis of the left coronary cusp. The aortic valve is seen to open near normally. There is no aortic valvular stenosis. Mitral valve leaflets open well. Posterior annular and leaflet calcification noted. There is no mitral valve stenosis. There is no mitral valve regurgitation noted. There is no pericardial effusion. DICTATED BY: KATJA LANDRY MD DATE: 06/17/24 0847 REASON: RENAL FAILURE ORDERING PHYSICIAN: EUSEBIO POWELL PROCEDURE: ABD PEL WO - CT ABDOMEN/PELVIS W/O CONTRAST CT ABDOMEN WITHOUT CONTRAST. CT PELVIS WITHOUT CONTRAST. INDICATION: Renal failure TECHNIQUE: Routine transaxial imaging using 5 mm slice thickness through the abdomen and pelvis without the administration of IV contrast. Thin slice reconstructions are also provided. Coronal and sagittal reformatted images acquired for interpretation. CT was performed with one or more of the following dose reduction techniques: Automated exposure control, adjustment of the mA and/or kV according to patient size, or use of iterative reconstruction technique. COMPARISON: None FINDINGS: Diagnostic sensitivity of this examination is limited by patient motion artifact. ON NONCONTRAST IMAGING: ABDOMEN: Heart size is normal. Mitral annular calcific plaque. Visible lung bases are clear. No abnormal renal calcifications, hydronephrosis, perinephric inflammation, or proximal hydroureter detected. The liver is normal in size and smooth in contour without biliary duct dilation. The spleen is normal in size and attenuation. Several miniscule calcifications within the gallbladder lumen. The pancreas appears normal without pancreatic duct dilation. The adrenal glands appear normal. No significant abdominal, retrocrural or retroperitoneal adenopathy noted. No evidence for intra-abdominal free air or organized fluid collection. Mild calcific plaque is noted along the abdominal aortic and iliac vessel rosales without aneurysmal dilation. PELVIS: Gallagher catheter within the nearly empty urinary bladder. Urinary bladder wall thickening is more than expected for empty urinary bladder. No evidence for free air or organized pelvic fluid collection. No significant pelvic adenopathy detected. Mild to moderate small and large bowel liquid contents. A few diverticula along the distal colon. Terminal ileum appears unremarkable. The appendix appears normal. Mild thoracolumbar spondylosis. IMPRESSION: 1. Probable mild enterocolitis with mild to moderate small and large bowel liquid contents. 2. Cholelithiasis. 3. Urinary bladder wall thickening, more than expected for empty urinary bladder. Correlation with urine studies is recommended. 4. Mild distal colonic diverticulosis. 5. Arteriosclerotic disease as described. DICTATED BY: ROLANDO HAN MD DATE: 06/17/24 1000 REASON: NETO ORDERING PHYSICIAN: BRENDA MAI MD PROCEDURE: RENAL - US RENAL SONOGRAM ULTRASOUND RENAL COMPLETE INDICATION: NETO TECHNIQUE: Routine ultrasound of the kidneys and urinary bladder with grayscale and color Doppler imaging was performed in real-time, and subsequently made available for review. COMPARISON: No prior studies available for comparison. FINDINGS: The right kidney measures 9.7 x 4.9 x 4.6 cm. No abnormal mass demonstrated. No evidence for hydronephrosis or shadowing stone. The left kidney measures 10.1 x 5.5 x 4.8 cm. No abnormal mass demonstrated. No evidence for hydronephrosis or shadowing stone. Urinary bladder wall thickness measures 4.0 mm, but exaggerated due to incomplete distention. No free fluid demonstrated. IMPRESSION: Normal sonographic appearance of the kidneys and urinary bladder. DICTATED BY: ROLANDO HAN MD DATE: 06/17/24 0949 REASON: cp ORDERING PHYSICIAN: MARY CARR MD PROCEDURE: CXR1VW - CHEST 1VW PORTABLE CHEST RADIOGRAPH INDICATION: cp COMPARISON: 05/06/2024 FINDINGS: court recording monitor leads overlie the field of view. Tip of right PICC within the SVC. Heart size is normal. Mild calcific plaque is present along the aortic arch rosales. The pulmonary vascularity and mauricio appear normal. No abnormal pulmonary parenchymal opacity or consolidation identified. No significant pleural effusion noted. No pneumothorax detected. IMPRESSION: No radiographic evidence for any acute cardiopulmonary process. DICTATED BY: ROLANDO HAN MD DATE: 06/16/242153 ASSESSMENT: Acute on chronic renal failure Severe Lactic acidosis Metabolic acidosis Hyperkalemia Septic shock, requiring vasopressor Acute encephalopathy Thrombocytopenia NSTEMI, rule-out demand ischemia vs true cardiac etiology Failure to thrive History of osteomyelitis with recent amputation Elevated troponin Elevated BNP Diabetes mellitus type 2 Hypertension Hyperlipidemia Peripheral artery disease PLAN: Labs, diagnostic, radiologic exams reviewed and interpreted by myself and supervising physician. We have reviewed external records in detail There is no need for emergent renal replacement therapy at this time. Hematology evaluation continues Require close monitoring of renal function and electrolytes Order CBC, CMP, and electrolytes in am Follow up culture results BiPAP as necessary, for respiratory distress Monitor blood pressure adjust medication doses as needed Avoid hypotensive episodes May use Dilaudid 0.5 mg IV every 6 hours as needed for severe pain Monitor blood sugars Strict intake, output, and daily weight should be monitored Please renally adjust medications Avoid nephrotoxic and nonsteroidal drugs Avoid contrast if possible Will continue to monitor renal function, anemia, electrolytes Treatment plan discussed with patient Questions were answered We have discussed with the other team physicians in detail about the care plan We will continue to monitor the patient closely ATTESTATION BY PHYSICIAN I have seen and examined the patient. I reviewed the documentation, medical deci zach making, and treatment plan as noted by the mid-level provider above. I agree with the findings and plan of care. BRENDA MAI MD, [facility] Jun 23, 2024 13:59
[2024-06-23] MEDS: MAGNESIUM 2GM PREMIX 50ML 50 ML IV PRN (14:48)
--- NOTE | 2024-06-23 14:57 | PN ---
[facility] PROGRESS NOTE Date Patient Seen: Jun 23, 2024 Time of Visit: 14:50 Supervising Physician: Dr. Bassett Primary Care Physician: [None-recently relocated from [place]] Outpatient Specialists: [ ] Inpatient Consults: [facility] team, nephro: Dr. Dowd, cardio: Dr. Bae] PROBLEM LIST: Septic shock, requiring pressor-POA Acute encephalopathy; likely multifactorial infectious, uremic and toxic metabolic-POA Severe metabolic acidosis-POA Acute renal failure, severe-POA Uremia-POA Severe hyperkalemia-POA Resolved Thrombocytopenia-POA Severe lactic acidosis-POA NSTEMI, rule-out demand ischemia vs true cardiac etiology-POA INTERVAL HISTORY: Patient evaluated at bedside today, he currently remains on 3 L nasal cannula. Patient's white count today is 8.1, hemoglobin 9.0. Patient positive for fungemia, left foot wound cultures have returned and Infectious Disease who started the patient on tigecycline. Sodium levels have decreased overnight to 146, potassium 3.1 today. Patient overall remains in stable condition however prognosis remains highly guarded. Blood cultures drawn this morning, we will continue to follow. No further changes to medical management at this time, pend ing recommendations from other specialties following. REVIEW OF SYSTEMS: Unable to perform 12 point ROS due to patient's encephalopathy. PHYSICAL EXAM: GENERAL: Awake, Alert. Generally weak HEENT: Normocephalic, atraumatic, dry mucosa NECK: Supple, no JVD, trachea midline LUNGS: Clear breath sounds bilaterally. No wheezes HEART: Regular rate and rhythm. Normal S1 and S2, positive murmurs , tachycardic ABD: Abdomen soft, nontender. Bowel sounds present EXT: No clubbing, cyanosis, or edema, bilateral feet wound with toe amputations with dressing CDI NEURO: Deferred Vital Signs (last 8hr) Date Time Temp Pulse Resp B/P (MAP) Pulse Ox O2 Delivery O2 Flow Rate FiO2 06/23/24 11:35 97.9 68 18 148/77 96 Nasal Cannula 2.0 24 06/23/24 11:30 72 15 152/83 96 Nasal Cannula 2.0 24 06/23/24 11:25 68 15 156/79 96 Nasal Cannula 2.0 24 06/23/24 11:20 72 16 153/86 98 Nasal Cannula 2.0 24 06/23/24 11:15 77 17 154/81 100 Nonrebreathing Mask 10.0 100 06/23/24 11:10 74 17 152/83 100 Nonrebreathing Mask 10.0 100 06/23/24 11:05 97.7 72 15 146/82 100 Nonrebreathing Mask 10.0 100 06/23/24 10:52 Mask 06/23/24 10:52 Mask 10.0 06/23/24 07:42 98.4 72 20 139/78 97 Nasal Cannula 3.0 LABS: Hematology Labs: Test 06/23/24 04:37 Range/Units White Blood Count 8.1 4.8-10.8 K/uL Red Blood Count 2.98 L 4.50-6.20 MIL/uL Hemoglobin 9.0 L 14.0-18.0 g/dL Hematocrit 26.0 L 42-54 % Mean Corpuscular Volume 87.2 79-99 fL Mean Corpuscular Hemoglobin 30.2 27.0-33.0 pg Mean Corpuscular Hemoglobin Concent 34.6 32.0-36.0 g/dL Red Cell Distribution Width 14.9 11.0-15.5 % Platelet Count 78 L 130-400 K/uL Mean Platelet Volume 10.5 7.5-10.5 fL Immature Granulocyte % (Auto) 2.0 H 0-1 % Neutrophils (%) (Auto) 77.1 H 40.0-77.0 % Lymphocytes (%) (Auto) 7.7 L 21.0-51.0 % Monocytes (%) (Auto) 12.9 3.0-13.0 % Eosinophils (%) (Auto) 0.1 0.0-8.0 % Basophils (%) (Auto) 0.2 0.0-5.0 % Neutrophils # (Auto) 6.2 1.8-7.7 K/uL Lymphocytes # (Auto) 0.6 L 1.0-4.8 K/uL Monocytes # (Auto) 1.0 0.1-1.0 K/uL Eosinophils # (Auto) 0.01 0.00-0.70 K/uL Basophils # (Auto) 0.02 0.00-0.20 K/uL Absolute Immature Granulocyte (auto 0.16 0-1 K/uL Nucleated Red Blood Cells 0.0 0.0-0.19 % Chemistry Labs: Test 06/23/24 11:25 06/23/24 04:37 06/22/24 03:45 06/21/24 16:20 Range/Units Whole Blood Glucose 190 H 70-110 MG/DL Sodium Level 144 136-145 mmol/L Potassium Level 3.1 L 3.5-5.1 mmol/L Chloride Level 100 L 101-111 mmol/L Carbon Dioxide Level 28 21-32 mmol/L Blood Urea Nitrogen 108 *H 7-18 mg/dL Creatinine 7.2 H 0.5-1.3 mg/dL Glomerular Filtration Rate Calc 8 >90 mL/min Random Glucose 201 H 70-105 mg/dL Total Calcium 7.7 L 8.5-10.1 mg/dL Phosphorus Level 4.5 2.5-4.9 mg/dL Magnesium Level 1.50 L 1.80-2.40 mg/dL Total Bilirubin 0.6 0.2-1.0 mg/dL Aspartate Amino Transf (AST/SGOT) 27 10-37 U/L Alanine Aminotransferase (ALT/SGPT) 21 12-78 U/L Alkaline Phosphatase 115 50-136 U/L Total Protein 6.1 6.0-8.3 g/dL Albumin 2.3 L 3.5-5.0 g/dL Bedside Glucose Comment Notified Nurse DIAGNOSTICS / RADIOLOGY RESULTS: [ ] PLAN NEURO: Minimize central acting medications as possible. Maintain fall precautions, adequate lighting during the day PULMONARY: Supplemental 02 as needed. Maintain aspiration precautions at all times CARDIOVASCULAR: Follow hemodynamics. Vital signs per facility protocol GI & NUTRITION: Continue with nutritional support. Continue stool softeners and laxatives as needed. KIDNEYS & ELECTROLYTES: Strict monitoring of intake, output and overall fluid balance. Avoid nephrotoxic medications to the extent possible. Medications to be dosed according to renal function. Monitor electrolytes and replace as needed ENDOCRINE: Maintain blood glucose between 100-180 at all times. Hypoglycemia protocol in place INFECTIOUS DISEASE: Trend temperature, WBC and procalcitonin level Follow cultures, deescalate antibiotics as soon as possible. Panculture if new onset fever ONCOLOGY/HEMATOLOGY/COAGULATION: Monitor for s/s of bleeding Monitor hemoglobin, coagulation studies as needed SKIN: Pressure ulcer prevention per facility protocol Specialty mattress ORTHO/REHAB: Continue PT/OT Prophylaxis: Continue GI and DVT prophylaxis Code Status: Full Resuscitation Disposition: TBD Other: Total patient care time: 35 minutes CAIO TRIVEDI Jun 23, 2024 14:57
--- NOTE | 2024-06-23 15:04 | NUR ---
Pt prefers to wait until post- procedure for PT eval
--- NOTE | 2024-06-23 17:51 | CONS ---
CONSULT REASON FOR CONSULT: Evaluation of anemia and thrombocytopenia HISTORY HPI: 69-year-old male with past medical history of diabetes mellitus type 2, hypertension, ESRD (baseline Cr ~2.3, now up to 7.2�9.9, GFR ~5�8), osteomyelitis with history of multiple toe amputations, recent septic shock (now off vasopressors), and ongoing broad-spectrum antibiotic therapy. Patient is a poor historian and resides in a nursing facility. Per family, he was doing relatively well until ~1 week ago when he had decreased oral intake and developed progressive lethargy. He had a recent COVID infection three weeks ago, now resolved. He presented with acute encephalopathy, hyperkalemia, metabolic acidosis, and severe thrombocytopenia (initially 32K, now improving to 78K). Notable labs include chronic normocytic anemia (Hgb trending 6.1�9.0), thrombocytopenia (platelets aren 28K, now 78K), and pancytopenia picture. Peripheral smear shows hypochromia, rouleaux formation, hypersegmented neutrophils, no schistocytes or helmet cells. Reticulocyte count is low (0.18%), immature reticulocytes elevated (2%). Iron saturation is high (79.7%), with low TIBC (94), suggesting anemia of chronic disease or myelodysplasia. Manual platelet count is ~100K PMH: osteomyelitis S/P left 4 &5 th toe and right 3rd toe amputation, anemia, chronic pain,diabetes and hypertension PSH: Left 4th and 5th toe amputation, right great and 3rd toe amputation SH: Patient coming from [facility]. Patient denies smoking alcohol and recreat ional drug use FH: [ Noncontributory ] ALLERGIES: Coded Allergies: No Known Drug Allergies (Unverified Allergy, Unknown, 05/05/24) CURRENT MEDS: Current Medications Medications (Trade) Dose Ordered Sig/Roderick Route PRN Reason Start Time Stop Time Status Last Admin Hydrocortisone Sodium Succinate (Solu-corTEF 100MG) 50 mg Q8H6 IV 06/23/24 06:00 07/23/24 05:59 06/23/24 13:47 Tigecycline 50 mg/ Sodium Chloride 100 ml @ 200 mls/hr BID@0600,1800 IV 06/23/24 06:00 06/30/24 05:59 06/23/24 05:13 Magnesium Sulfate 50 ml @ 0 mls/hr PROTOCOL PRN IV MAGNESIUM PROTOCOL 06/23/24 11:30 07/23/24 11:29 06/23/24 14:48 Potassium Chloride 100 ml @ 100 mls/hr AD PRN IV POTASSIUM PROTOCOL 06/23/24 11:30 07/23/24 11:29 Potassium Chloride (KCl 10% Elixir 20meq/15ml) 20 meq AD PRN PO POTASSIUM PROTOCOL 06/23/24 11:30 07/23/24 11:29 Potassium Chloride (K-Dur/Klor-Con 20meq) 20 meq AD PRN PO POTASSIUM PROTOCOL 06/23/24 11:30 07/23/24 11:29 Vitamin B Complex/ Vit C/Folic Acid (Nephrovite Tablet) 1 cap DAILY PO 06/24/24 09:00 07/24/24 08:59 PHYSICAL EXAM VITALS: Vital Signs Date Time Temp Pulse Resp B/P (MAP) Pulse Ox O2 Delivery O2 Flow Rate FiO2 06/23/24 11:35 97.9 68 18 148/77 96 Nasal Cannula 2.0 24 DIAGNOSTIC STUDIES * Serum protein electrophoresis (SPEP) � pending * Serum free light chains (kappa and lambda) � pending * Vitamin B12 and folate levels � ordered * Reticulocyte index � already low; suggests marrow suppression * Bone marrow biopsy and aspiration if monoclonality seen on SPEP/FLC or persistent cytopenias IMPRESSION Anemia, normocytic, multifactorial (POA) * Likely secondary to ESRD (uremic suppression of erythropoiesis), nutritional deficiencies (low reticulocyte count, hypersegmented neutrophils ? consider B12/folate), and possible early bone marrow suppression or myelodysplastic syndrome (MDS). * Consider anemia of chronic inflammation/infection. Thrombocytopenia, multifactorial (POA) * Likely due to uremia-associated platelet dysfunction and suppression, sepsis- related marrow suppression, nutritional deficiencies. * No peripheral destruction pattern (no schistocytes or helmet cells), no signs of TTP/DIC. * Bone marrow suppression or MDS still on differential. Pancytopenia: Consider bone marrow suppression vs. early myelodysplastic syndrome * Peripheral smear and lab patterns suggest hypoproliferative picture; no evidence of hemolysis or peripheral destruction. * SPEP/FLC pending to rule out plasma cell dyscrasia or monoclonal gammopathy. PLAN Order and monitor the following labs: * Serum protein electrophoresis (SPEP) � pending * Serum free light chains (kappa and lambda) � pending * Vitamin B12 and folate levels � ordered * Reticulocyte index � already low; suggests marrow suppression * Bone marrow biopsy and aspiration if monoclonality seen on SPEP/FLC or persistent cytopenias Avoid Anticoagulants at this time. Transfusions: * 1 unit PRBC already transfused � Hgb currently stable at 9.0 g/dL * 4 units of platelets transfused for severe thrombocytopenia � platelet count improving (now 78K to 100K) Supportive care: * Continue Nephrovite, folic acid, thiamine, and vitamin B complex supplementation * Monitor iron studies � current iron level 75 mcg/dL; TIBC low; saturation high due to inflammation Monitoring: * Daily CBC with manual differential * Monitor platelet and hemoglobin trends * Monitor response to transfusion and nutritional supplementation Future considerations: * If SPEP or free light chains show monoclonal proteins, proceed with bone marrow biopsy to evaluate for plasma cell dyscrasia or myelodysplastic syndrome (MDS) * If cytopenias persist or worsen despite clinical improvement, bone marrow biopsy will be indicated SIRI PATIÑO MD Jun 23, 2024 17:51
--- NOTE | 2024-06-23 19:33 | PN ---
[facility] PROGRESS NOTE Date of Service: Jun 23, 2024 Time of Service: 19:31 SUBJECTIVE: Patient is seen and examined at bedside, case discussed with the RN, during my visit the patient resting comfortably in bed, following simple commands, he is on blood pressure support with Levophed, getting sodium bicarbonate IV. BP 108/57, heart rate of 116, saturating 99% on 2 L nasal cannula. Hemoglobin 8.4, hematocrit 27.0, WBC 14.2, platelet count of 28. Sodium 143, potassium 5.0, bicarb of five, BUN 107, creatinine 9.7. ABG with pH of 7.8, pCO2 less than 15, bicarb of 2.3. 06/18 patient has been seen and examined at bedside, case discussed with the RN, patient remains confused, still on pressor support with Levophed and Andrew- Synephrine, patient also on sodium bicarbonate drip. No family members at bedside during my visit. Blood pressure 112/44, heart rate of 91, saturating 93%. CBC with WBC of 16.4, hemoglobin 8.2, hematocrit 23.7, platelet count of 27. Sodium 145, potassium 3.7, BUN of 102, creatinine 10.2, sodium bicarb of 12. ABG with pH of 7.33, pCO2 31, PO2 64, bicarb of 16.1. Septic workup reviewed, blood cultures no growth after 24 hours. Patient getting broad- spectrum IV antibiotics during my visit. CT of the abdomen pelvis probable mild enterocolitis with mild to moderate small and large bowel liquid content, cholelithiasis, urinary wall thickening, more than expected for empty urinary bladder. Mild distal colonic diverticulosis. 06/19 patient is seen and examined at bedside, case discussed with the RN, no acute events overnight, patient is still confused, however less compared to time of admission. Following very simple commands. He is currently off vasopressors. Replace, output since this morning 500 cc. Blood pressure 111/78, afebrile, saturating 96-98% 2 L nasal cannula. WBC trending down at 11.2, hemoglobin 7.6, hematocrit 20.9, platelet count of 14. BUN 108, creatini ne 10.2. ABG shows a pH 7.41, pCO2 37, PO2 81.5, bicarb 23.1. Blood culture showing Alicia tropicalis. Patient has been started on micafungin. Continue antibiotics. Continue critical care input and recommendation, continue Nephrology input and recommendation in terms of renal replacement therapy, continue daily weight, monitor intake and output. Follow anemia workup, stool o ccult blood, serial CBC transfuse 1 unit of PRBC hemoglobin less than seven, we will request Hematology consultation as well. 06/20 patient seen at bedside, no acute events overnight. He is not requiring pressors he is afebrile, hemodynamically stable saturating well on 2 L nasal cannula. Hemoglobin was 6.1 and platelets low at night, we will be transfused with packed red blood cells and platelets per critical Care, we will follow up post transfusion. Potassium decreased from 3.4 down to 3.2, creatinine stable at 10.2, we will follow up with Nephrology for recommendations. Urine output is improving, he has been started on Lasix, we will follow up. Patient continues on micafungin. Pt reticulocyte count low at 0.18 suggesting decreased production of RBC, FOBT positive as well concerning for GI Bleed. Will consult hematology and GI and follow up 06/21 patient seen at bedside, no acute events overnight. He has been afebrile, hemodynamically stable saturating well on 2 L nasal cannula. He has been NPO however he has no history of volume overload, and his kidney function is decreased, we will perfuse his kidneys with some IV fluids and allow clear liquid diet. Creatinine stable at 9.9, same as yesterday, potassium decreased at 3.0, nephrology to manage potassium levels until renal function improves. Hemoglobin improved from 8.0 up to 8.7, remainder of his labs are relatively unremarkable. 06/22 Pt seen at bedside, no acute events overnight. He has been downgraded from ICU. He has been afebrile, hemodynamically stable, saturating well on room air. Hgb stable at 8.6, similar to yesterday, platelets decreased from 102 down to 82, potassium low at 2.7, will be repleted according to protocol, creatinine improved from 9.9 down to 8.5, sodium improved from 150 down to 146, remainder of his labs are relatively unremarkable. Urine output adequate, approximately 2.3L output in the last 24 hours. On physical exam, no evidence of volume overflow, will continue with IV fluids to perfuse his kidneys. Left foot grow ing mullins-resistant organism, ID to adjust antibiotics 06/23 patient seen at bedside, no acute events overnight. He is pending EGD with GI today, we will follow up postprocedure. He has been afebrile, hemodynamically stable, mildly hypertensive with systolics in the 150s, saturating well on 3 L nasal cannula. Hemoglobin improved from 8.6 up to 9.0, platelets decreased from 82 down to 78, creatinine continues to improve from 8.5 down to 7.2 with adequate urine output. Potassium low at 3.1, we will be reple nemesio according to potassium protocol. Patient weak and feeble, we will likely need transitioned to correction facility, case management to assist with placement. He will continue daily physical therapy. REVIEW OF SYSTEMS 12 point review of systems negative unless noted in HPI PHYSICAL EXAM GENERAL APPEARANCE: The patient remains confused. Withdrawing to painful stimulation. NEUROLOGICAL: Cranial nerves II-XII grossly intact. Motor is 5/5 in bilateral upper and lower extremities proximal to distal. No sensory deficits. HEENT: Face is symmetric. Pupils are equal and reactive. Extraocular movements are intact. NECK: Supple. No JVD. No thyromegaly. No submental, submandibular, pre- /postauricular, occipital or supraclavicular lymphadenopathy. CHEST: Normal chest expansion. No Telemetry. LUNGS: Absence of any rales, rhonchi or any wheezing. CARDIOVASCULAR: Regular. S1 and S2 normal. No appreciable rubs, murmurs or gallops. ABDOMEN: Soft, nontender, and nondistended. There is no rebound, voluntary guarding, or rigidity. : Deferred. No Gallagher. EXTREMITIES: Non-edematous and not cyanotic. No clubbing. Good capillary ref ill. SKIN: No skin breakdown. Vital Signs (last 8hr) Date Time Temp Pulse Resp B/P (MAP) Pulse Ox O2 Delivery O2 Flow Rate FiO2 06/23/24 17:30 67 156/80 95 Nasal Cannula 3.0 06/23/24 16:30 69 155/81 93 Nasal Cannula 3.0 06/23/24 15:30 60 152/84 96 Nasal Cannula 3.0 06/23/24 14:30 69 158/90 97 Nasal Cannula 3.0 06/23/24 13:30 74 152/80 94 Nasal Cannula 3.0 06/23/24 13:00 60 158/83 96 Nasal Cannula 3.0 06/23/24 12:30 71 150/81 95 Nasal Cannula 3.0 06/23/24 12:15 74 152/82 95 Nasal Cannula 3.0 06/23/24 12:00 72 153/88 96 Nasal Cannula 3.0 06/23/24 11:45 97.7 72 19 124/82 95 Nasal Cannula 3.0 06/23/24 11:35 97.9 68 18 148/77 96 Nasal Cannula 2.0 24 LABS: Laboratory: Test 06/23/24 16:14 06/23/24 04:37 06/22/24 03:45 Range/Units Whole Blood Glucose 171 H 70-110 MG/DL White Blood Count 8.1 4.8-10.8 K/uL Red Blood Count 2.98 L 4.50-6.20 MIL/uL Hemoglobin 9.0 L 14.0-18.0 g/dL Hematocrit 26.0 L 42-54 % Mean Corpuscular Volume 87.2 79-99 fL Mean Corpuscular Hemoglobin 30.2 27.0-33.0 pg Mean Corpuscular Hemoglobin Concent 34.6 32.0-36.0 g/dL Red Cell Distribution Width 14.9 11.0-15.5 % Platelet Count 78 L 130-400 K/uL Mean Platelet Volume 10.5 7.5-10.5 fL Immature Granulocyte % (Auto) 2.0 H 0-1 % Neutrophils (%) (Auto) 77.1 H 40.0-77.0 % Lymphocytes (%) (Auto) 7.7 L 21.0-51.0 % Monocytes (%) (Auto) 12.9 3.0-13.0 % Eosinophils (%) (Auto) 0.1 0.0-8.0 % Basophils (%) (Auto) 0.2 0.0-5.0 % Neutrophils # (Auto) 6.2 1.8-7.7 K/uL Lymphocytes # (Auto) 0.6 L 1.0-4.8 K/uL Monocytes # (Auto) 1.0 0.1-1.0 K/uL Eosinophils # (Auto) 0.01 0.00-0.70 K/uL Basophils # (Auto) 0.02 0.00-0.20 K/uL Absolute Immature Granulocyte (auto 0.16 0-1 K/uL Nucleated Red Blood Cells 0.0 0.0-0.19 % Sodium Level 144 136-145 mmol/L Potassium Level 3.1 L 3.5-5.1 mmol/L Chloride Level 100 L 101-111 mmol/L Carbon Dioxide Level 28 21-32 mmol/L Blood Urea Nitrogen 108 *H 7-18 mg/dL Creatinine 7.2 H 0.5-1.3 mg/dL Glomerular Filtration Rate Calc 8 >90 mL/min Random Glucose 201 H 70-105 mg/dL Total Calcium 7.7 L 8.5-10.1 mg/dL Phosphorus Level 4.5 2.5-4.9 mg/dL Magnesium Level 1.50 L 1.80-2.40 mg/dL Vitamin B12 Level 854 193-986 pg/mL Folic Acid (LAB) 6.10 2-20 ng/mL Total Bilirubin 0.6 0.2-1.0 mg/dL Aspartate Amino Transf (AST/SGOT) 27 10-37 U/L Alanine Aminotransferase (ALT/SGPT) 21 12-78 U/L Alkaline Phosphatase 115 50-136 U/L Total Protein 6.1 6.0-8.3 g/dL Albumin 2.3 L 3.5-5.0 g/dL Current Medications Medications (Trade) Dose Ordered Sig/Roderick Route PRN Reason Start Time Stop Time Status Last Admin Dose Admin Albuterol Sulfate (Proventil 0.083% 2.5mg/3ml) 10 mg ONCE STAT IH 06/17/24 04:05 06/17/24 04:12 DC 06/17/24 04:31 10 MG Amlodipine Besylate (NorvASC 5MG TAB) 5 mg BID PO 06/22/24 09:00 07/22/24 08:59 06/23/24 12:54 5 MG Calcium Gluconate (Calcium Gluc 1gm Vial) 1 gm AD STAT IV 06/17/24 04:05 06/17/24 04:12 DC 06/17/24 04:21 1 GM Cefepime HCl (MAXipime 1 GM vial) 0.25 gm Q24H IVPB 06/17/24 04:00 06/18/24 04:06 DC 06/17/24 04:58 0.25 GM Cefepime HCl (MAXipime 1 GM vial) 1 gm Q24H IVPB 06/20/24 05:00 06/22/24 16:09 DC 06/22/24 03:12 1 GM Cefepime HCl 0.25 gm/Sodium Chloride 50 ml @ 100 mls/hr Q24H IVPB 06/18/24 04:30 06/19/24 10:58 DC 06/19/24 05:26 100 MLS/HR Dextrose (D50w) 50 ml AD PRN IV HYPOGLYCEMIA PROTOCOL 06/17/24 01:00 06/17/24 01:01 DC Dextrose (D50w) 50 ml AD PRN IV HYPOGLYCEMIA PROTOCOL 06/17/24 01:00 07/17/24 00:59 Dextrose (D50w) 50 ml ONCE STAT IV 06/17/24 04:05 06/17/24 04:12 DC 06/17/24 04:21 50 ML Famotidine (Pepcid 20mg Vial) 20 mg Q48H IV 06/17/24 01:00 07/17/24 00:59 06/22/24 23:18 20 MG Furosemide (LASix 40MG VIAL) 40 mg Q8H IV 06/19/24 18:30 06/20/24 18:31 DC 06/20/24 18:54 40 MG Glucagon (Glucagon 1mg Kit) 1 mg AD PRN IM HYPOGLYCEMIA PROTOCOL 06/17/24 01:00 06/17/24 01:01 DC Glucagon (Glucagon 1mg Kit) 1 mg AD PRN IM HYPOGLYCEMIA PROTOCOL 06/17/24 01:00 07/17/24 00:59 Hydralazine HCl ([id number] TAB) 25 mg TID PO 06/22/24 09:00 07/22/24 08:59 06/23/24 13:47 25 MG Hydrocortisone Sodium Succinate (Solu-corTEF 100MG) 50 mg ONCE@1930 IV 06/22/24 19:30 06/22/24 22:30 DC 06/22/24 19:59 50 MG Hydrocortisone Sodium Succinate (Solu-corTEF 100MG) 50 mg Q8H IV 06/18/24 11:30 06/22/24 15:46 DC 06/22/24 03:12 50 MG Hydrocortisone Sodium Succinate (Solu-corTEF 100MG) 50 mg Q8H6 IV 06/23/24 06:00 07/23/24 05:59 06/23/24 13:47 50 MG Hydromorphone HCl (DiLAUDid 0.5MG INJ) 0.5 mg Q4H PRN IVP SEVERE PAIN (7-10) 06/20/24 13:00 06/25/24 12:59 06/21/24 23:50 0.5 MG Insulin Human Regular (humuLIN R 100 UNIT/ML 3ML) 10 unit ONCE STAT IV 06/17/24 04:05 06/17/24 04:12 DC 06/17/24 04:28 10 UNIT Insulin Human Regular (humuLIN R 100 UNIT/ML 3ML) INSULIN SLIDING SCAL... ACHS SQ 06/17/24 07:30 07/17/24 07:29 06/23/24 12:55 2 UNIT Lactated Ringer's 1,000 ml @ 130 mls/hr Q7H42M IV 06/21/24 09:30 07/21/24 09:29 06/23/24 15:22 130 MLS/HR Leptospermum Honey (Medihoney) 1 appl DAILY TP 06/19/24 09:00 07/19/24 08:59 06/23/24 12:54 1 APPL Magnesium Sulfate 50 ml @ 0 mls/hr PROTOCOL PRN IV MAGNESIUM PROTOCOL 06/23/24 11:30 07/23/24 11:29 06/23/24 14:48 50 MLS/HR Metronidazole/ Sodium Chloride (flaGYL) 500 mg Q8H IV 06/17/24 05:00 06/27/24 04:59 06/23/24 12:55 500 MG Micafungin Sodium 100 ml @ 100 mls/hr Q24H IV 06/18/24 00:00 07/18/24 00:00 06/22/24 23:18 100 MLS/HR Norepinephrine 250 ml @ 0 mls/hr PROTOCOL IV 06/16/24 22:00 06/22/24 07:20 DC 06/17/24 05:33 24.5 MLS/HR Pharmacy Profile Note (Lace Assessment) 1 each AD MISC 06/19/24 15:30 06/20/24 12:49 DC Pharmacy Profile Note (Pharmacy Communication) 1 each ONCE MISC 06/17/24 23:00 06/19/24 07:13 DC 06/17/24 23:31 1 EACH Pharmacy Profile Note (Pharmacy Communication) 1 each ONCE MISC 06/22/24 16:30 06/23/24 07:22 DC Phenylephrine HCl 100 mg/Sodium Chloride 250 ml @ 0 mls/hr AD PRN IV TITRATE 06/17/24 10:30 06/22/24 07:20 DC 06/18/24 05:48 27 MLS/HR Piperacillin Sod/ Tazobactam Sod (Zosyn 3.375gm+NS 50ml) 3.375 gm Q12H IV 06/16/24 21:30 06/17/24 01:03 DC 06/16/24 21:42 3.375 GM Piperacillin Sod/ Tazobactam Sod (Zosyn 3.375gm+NS 50ml) 3.375 gm Q12H IVPB 06/17/24 01:00 06/17/24 04:00 DC 06/17/24 02:54 3.375 GM Potassium Chloride 100 ml @ 100 mls/hr AD PRN IV POTASSIUM PROTOCOL 06/21/24 08:00 07/21/24 07:59 06/23/24 06:06 100 MLS/HR Potassium Chloride 100 ml @ 100 mls/hr AD PRN IV POTASSIUM PROTOCOL 06/23/24 11:30 07/23/24 11:29 Potassium Chloride (K-Dur/Klor-Con 20meq) 20 meq AD PRN PO POTASSIUM PROTOCOL 06/23/24 11:30 07/23/24 11:29 Potassium Chloride (K-Dur/Klor-Con 20meq) 40 meq BID PO 06/22/24 09:00 06/22/24 21:01 DC 06/22/24 19:54 40 MEQ Potassium Chloride (KCl 10% Elixir 20meq/15ml) 20 meq AD PRN PO POTASSIUM PROTOCOL 06/23/24 11:30 07/23/24 11:29 Sodium Bicarbonate / Dextrose 1,000 ml @ 0 mls/hr Q0M IVP 06/17/24 05:00 06/17/24 04:58 DC Sodium Bicarbonate 150 meq/Dextrose 1,150 ml @ 50 mls/hr Q23H IVP 06/18/24 08:00 06/19/24 12:24 DC 06/18/24 20:23 100 MLS/HR Sodium Bicarbonate 150 meq/Dextrose 1,150 ml @ 100 mls/hr [id number] IVP 06/17/24 05:00 06/18/24 04:44 DC 06/17/24 21:00 100 MLS/HR Sodium Polystyrene Sulfonate (kayEXALate 15 GM/60 ML) 15 gm Q2H PO 06/16/24 21:30 06/16/24 23:31 DC 06/16/24 22:21 15 GM Sodium Chloride 1,000 ml @ 150 mls/hr Q6H40M IV 06/16/24 23:00 06/17/24 09:10 DC 06/17/24 05:15 150 MLS/HR Sodium Chloride (NS 50ml) 50 ml AD IV 06/17/24 01:00 06/17/24 01:05 DC Thiamine HCl (Vitamin B-1) 100 mg DAILY IVP 06/17/24 09:00 07/17/24 08:59 06/23/24 12:54 100 MG Tigecycline 100 mg/Sodium Chloride 100 ml @ 200 mls/hr ONCE IV 06/22/24 16:30 06/23/24 07:21 DC 06/22/24 18:51 200 MLS/HR Tigecycline 50 mg/ Sodium Chloride 100 ml @ 200 mls/hr BID@0600,1800 IV 06/23/24 06:00 06/30/24 05:59 06/23/24 19:04 200 MLS/HR Vancomycin HCl (Vancomycin 750mg) 750 mg Q96H IVPB 06/20/24 22:00 06/17/24 14:00 DC Vancomycin HCl (Vancomycin Protocol) 1 each AD IV 06/17/24 01:30 06/17/24 14:01 DC Vitamin B Complex/ Vit C/Folic Acid (Nephrovite Tablet) 1 cap DAILY PO 06/24/24 09:00 07/24/24 08:59 DIAGNOSTICS / RADIOLOGY: [ ] ASSESSMENT: Severe metabolic acidosis, resolved POA Septic shock requiring vasopressor, resolved POA Fungemia Acute on chronic renal failure POA Hyperkalemia POA Chronic anemia POA Acute thrombocytopenia POA Failure to thrive POA Acute encephalopathy, improving DM2 last A1c unknown Dyslipidemia Peripheral artery disease Osteomyelitis with recent amputation to both feet POA Hypertension PLAN: Patient remains admitted to the intensive care unit Continue cardiac monitor technician Continue the patient on broad-spectrum IV antibiotics, continue micafungin. Continue to follow Nephrology input recommendation terms of renal replacement therapy Start LR @ 130 cc/hr Start clear liquid diet Continue furosemide GI consulted, appreciate recommendations Hematology consulted, appreciate recommendations Anemia workup. Transfuse as needed. Hematology consultation requested per Follow critical care input and recommendation Disposition: Pending improvement renal function, adjustment of antibiotics AL CARDONA MD Jun 23, 2024 19:33
[2024-06-23] MEDS: ondanSETRON 4MG INJ IVP PRN (20:10)
--- NOTE | 2024-06-23 22:19 | PN ---
INFECTIOUS DISEASE PROGRESS NOTE Date of Service: Jun 23, 2024 SUBJECTIVE: Patient was seen and examined at bedside in room 308. Patient is awake, alert and oriented. Patient is afebrile, temperature is 97.9�. Patient is status post EGD today and has been scheduled for colonoscopy for tomorrow. Continue on Tygacil IV, micafungin IV and metronidazole. No episodes of emesis reported. Case management to evaluate for referral to LTAC for 2-3 weeks of IV antibiotics. We will continue to follow patient's care. PHYSICAL EXAM EYES: Anicteric. Pupils equal and reactive. HENT: No oral thrush seen, moist Oral mucosa. NECK: Supple, no JVD or thyromegaly. LUNGS: Good air entry. No rales, no rhonchi. CARDIOVASCULAR: S1, S2 regular. No murmur heard. ABDOMEN: Soft, non tender, bowel sounds present, no organomegaly. CENTRAL NERVOUS SYSTEM: Awake, alert, oriented x 2. SKIN: No rashes, no swelling. LYMPHATICS: No peripheral lymphadenopathy MUSCULOSKELETAL: No joint swelling, erythema or tenderness. EXTREMITIES: No cyanosis or clubbing. 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 BACK: No deformity, no pressure ulcer. GENITOURINARY: No dysuria or hematuria. Vital Sign (Last 12 Hours) 06/23/24 06/23/24 06/23/24 06/23/24 10:52 10:52 11:05 11:10 Temp 97.7 Pulse 72 74 Resp 15 17 B/P (MAP) 146/82 152/83 Pulse Ox 100 100 O2 Delivery Mask Mask Nonrebreathing Mask Nonrebreathing Mask O2 Flow Rate 10.0 10.0 10.0 FiO2 100 100 06/23/24 06/23/24 06/23/24 06/23/24 11:15 11:20 11:25 11:30 Pulse 77 72 68 72 Resp 17 16 15 15 B/P (MAP) 154/81 153/86 156/79 152/83 Pulse Ox 100 98 96 96 O2 Delivery Nonrebreathing Mask Nasal Cannula Nasal Cannula Nasal Cannula O2 Flow Rate 10.0 2.0 2.0 2.0 FiO2 100 24 24 24 06/23/24 06/23/24 06/23/24 06/23/24 11:35 11:45 12:00 12:15 Temp 97.9 97.7 Pulse 68 72 72 74 Resp 18 19 B/P (MAP) 148/77 124/82 153/88 152/82 Pulse Ox 96 95 96 95 O2 Delivery Nasal Cannula Nasal Cannula Nasal Cannula Nasal Cannula O2 Flow Rate 2.0 3.0 3.0 3.0 FiO2 24 06/23/24 06/23/24 06/23/24 06/23/24 12:30 13:00 13:30 14:30 Pulse 71 60 74 69 B/P (MAP) 150/81 158/83 152/80 158/90 Pulse Ox 95 96 94 97 O2 Delivery Nasal Cannula Nasal Cannula Nasal Cannula Nasal Cannula O2 Flow Rate 3.0 3.0 3.0 3.0 06/23/24 06/23/24 06/23/24 06/23/24 15:30 16:30 17:30 20:00 Pulse 60 69 67 B/P (MAP) 152/84 155/81 156/80 Pulse Ox 96 93 95 O2 Delivery Nasal Cannula Nasal Cannula Nasal Cannula Nasal Cannula* O2 Flow Rate 3.0 3.0 3.0 2 FiO2 28 06/23/24 20:00 Temp 97.9 Pulse 67 Resp 18 B/P (MAP) 142/73 Pulse Ox 97 O2 Delivery Nasal Cannula O2 Flow Rate 2.0 Intake & Output (last 24hrs) 06/22/24 06/22/24 06/23/24 15:00 23:00 07:00 Intake Total 100.0 ml 1860.0 ml Output Total 1100 ml 1100 ml Balance -1000.0 ml 760.0 ml LABS: Laboratory: Test 06/23/24 19:31 06/23/24 04:37 06/22/24 03:45 Range/Units Whole Blood Glucose 161 H 70-110 MG/DL White Blood Count 8.1 4.8-10.8 K/uL Red Blood Count 2.98 L 4.50-6.20 MIL/uL Hemoglobin 9.0 L 14.0-18.0 g/dL Hematocrit 26.0 L 42-54 % Mean Corpuscular Volume 87.2 79-99 fL Mean Corpuscular Hemoglobin 30.2 27.0-33.0 pg Mean Corpuscular Hemoglobin Concent 34.6 32.0-36.0 g/dL Red Cell Distribution Width 14.9 11.0-15.5 % Platelet Count 78 L 130-400 K/uL Mean Platelet Volume 10.5 7.5-10.5 fL Immature Granulocyte % (Auto) 2.0 H 0-1 % Neutrophils (%) (Auto) 77.1 H 40.0-77.0 % Lymphocytes (%) (Auto) 7.7 L 21.0-51.0 % Monocytes (%) (Auto) 12.9 3.0-13.0 % Eosinophils (%) (Auto) 0.1 0.0-8.0 % Basophils (%) (Auto) 0.2 0.0-5.0 % Neutrophils # (Auto) 6.2 1.8-7.7 K/uL Lymphocytes # (Auto) 0.6 L 1.0-4.8 K/uL Monocytes # (Auto) 1.0 0.1-1.0 K/uL Eosinophils # (Auto) 0.01 0.00-0.70 K/uL Basophils # (Auto) 0.02 0.00-0.20 K/uL Absolute Immature Granulocyte (auto 0.16 0-1 K/uL Nucleated Red Blood Cells 0.0 0.0-0.19 % Sodium Level 144 136-145 mmol/L Potassium Level 3.1 L 3.5-5.1 mmol/L Chloride Level 100 L 101-111 mmol/L Carbon Dioxide Level 28 21-32 mmol/L Blood Urea Nitrogen 108 *H 7-18 mg/dL Creatinine 7.2 H 0.5-1.3 mg/dL Glomerular Filtration Rate Calc 8 >90 mL/min Random Glucose 201 H 70-105 mg/dL Total Calcium 7.7 L 8.5-10.1 mg/dL Phosphorus Level 4.5 2.5-4.9 mg/dL Magnesium Level 1.50 L 1.80-2.40 mg/dL Vitamin B12 Level 854 193-986 pg/mL Folic Acid (LAB) 6.10 2-20 ng/mL Total Bilirubin 0.6 0.2-1.0 mg/dL Aspartate Amino Transf (AST/SGOT) 27 10-37 U/L Alanine Aminotransferase (ALT/SGPT) 21 12-78 U/L Alkaline Phosphatase 115 50-136 U/L Total Protein 6.1 6.0-8.3 g/dL Albumin 2.3 L 3.5-5.0 g/dL ASSESSMENT: Fungemia. 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 Septic shock, resolving. Anemia requiring blood transfusion, status post EGD today. Acute renal failure. Thrombocytopenia. PLAN: Continue tigecycline IV. Continue micafungin. Continue metronidazole. Continue wound care. Mileage Clerk following patient. Patient has been scheduled for a colonoscopy for tomorrow. Avoid nephrotoxic medications. Case management evaluation for referral to LTAC for 2-3 weeks of IV antibiotics. This case was reviewed and discussed with my supervising physician and the above assessment and plan was formulated and agreed upon. ATTESTATION BY PHYSICIAN I have seen and examined the patient. I reviewed the documentation, medical decision making, and treatment plan as noted by the mid-level provider above. I agree with the findings and plan of care. CECIL ROY MD, [facility] Jun 23, 2024 22:19
--- NOTE | 2024-06-23 23:40 | NUR ---
REFUSAL OF COLONOSCOPY PATIENT DECLINING TO DRINK GOLYTELY PREP FOR COLONOSCOPY AND DECIDED DOES NOT WANT TO HAVE COLONOSCOPY, PATIENT EDUCATED ON RISKS NOT HAVING PROCEDURE DONE. PATIENT CONTINUED TO STATE IS DECLINING PROCEDURE, ANGELITA DUFFY WITNESSED VERBAL REFUSAL. SISTER ASHLEY VILLARREAL NOTIFIED BY TELEPHONE OF PATIENT DECLINING COLONOSCOPY. SISTER STATED MAYBE WILL CHANGE HIS MIND TOMORROW AND CAN HAVE IT DONE LATER IN DAY. PAGED KNOWLEDGE MANAGEMENT CONSULTANT GI MD PRABHAKAR.
[2024-06-24] VITALS (9 sets, daily range): BP systolic 118–147; BP diastolic 64–84; PULSE 75–104; RESP 16–18; TEMP 97.4–98.3; O2SAT 97–100
[2024-06-24 05:10] LABS: BASOPHILS # (AUTO) 0.02 K/uL (0.00-0.20); BASOPHILS % (AUTO) 0.2 % (0.0-5.0); HEMATOCRIT 26.6 % (42-54); IMMATURE GRANULOCYTE ABSOLUTE 0.17 K/uL (0-1); LYMPHOCYTES # (AUTO) 0.7 K/uL (1.0-4.8); LYMPHOCYTES % (AUTO) 7.4 % (21.0-51.0); MEAN CORPUSCULAR HEMOGLOBIN 30.4 pg (27.0-33.0); MEAN CORPUSCULAR VOLUME 86.9 fL (79-99); MONOCYTES # (AUTO) 0.9 K/uL (0.1-1.0); MONOCYTES % (AUTO) 8.8 % (3.0-13.0); NEUTROPHILS # (AUTO) 8.1 K/uL (1.8-7.7); NEUTROPHILS % (AUTO) 81.9 % (40.0-77.0); PLATELET COUNT (AUTO) 87 K/uL (130-400); RED BLOOD CELL COUNT(AUTO) 3.06 MIL/uL (4.50-6.20); RED CELL DISTRIBUTION WIDTH 14.9 % (11.0-15.5); WHITE BLOOD COUNT (AUTO) 9.8 K/uL (4.8-10.8)
[2024-06-24 05:35] LABS: CREATININE 6.4 mg/dL (0.5-1.3); MAGNESIUM 1.7 mg/dL (1.80-2.40); PHOSPHORUS 5.3 mg/dL (2.5-4.9); POTASSIUM 3.4 mmol/L (3.5-5.1); VANCOMYCIN LEVEL 5.4 mcg/mL (20.0-30.0)
--- NOTE | 2024-06-24 08:58 | PN ---
GASTROENTEROLOGY PROGRESS NOTE Date of Visit: Jun 24, 2024 Time of Visit: 08:58 Events / Notes: No acute events overnight. Patient had EGD revealing mucosal changes suspicious for gastritis. Denies fever, chills, abdominal pain, N/V, hematemesis, bloating, constipation, diarrhea, melena or hematochezia. Review of Systems: CONSTITUTIONAL: No malaise or change in sensation of wellbeing. ENMT: No rhinorrhea, otorrhea, sinus pain, ear ache. CARDIOVASCULAR: No angina, palpitations, orthopnea or paroxysmal dyspnea. RESPIRATORY: No SOB. GASTROINTESTINAL: No abdominal pain, nausea, vomiting, diarrhea, hematemesis, melena or change in the patient's habitual bowel movements consistency/number. GENITOURINARY: No dysuria, hematuria or change in bladder continence. MUSCULOSKELETAL: No new muscle pain or decrease in muscular strength. No new joint swelling, redness or tenderness. SKIN: No new rash. Physical Exam: GEN: Awake, alert, oriented in person, time and place, and in no acute distress. HEENT: No sinus tenderness. Tympanic membranes were not examined. No rhinorrhea. Oral pharyngeal mucosa is pink, moist and within normal limits. Neck is supple with no cervical lymphadenopathy, thyromegaly or JVD. CHEST: Inspection, palpation and percussion of the chest were unremarkable. Lung auscultation revealed normal breath sounds bilaterally. CARDIAC: PMI is within normal limits. Heart sounds are regular. Normal S1, S2. No gallop or murmur. ABD: Soft, non-tender and not distended. No peritoneal signs on palpation. No organomegaly. Normal bowel sounds. EXT: No cyanosis or clubbing. No edema. SKIN: Intact. No rashes. JOINTS: No evidence of synovitis or acute arthritis. NEURO: Alert and oriented to name, place and person. Cranial nerve examination is unremarkable. No focal motor deficits. Normal speech. Gait is normal. Strength is normal. Vital Signs (last 8hr) Date Time Temp Pulse Resp B/P (MAP) Pulse Ox O2 Delivery O2 Flow Rate FiO2 06/24/24 08:00 97.5 98 16 147/76 97 Room Air 06/24/24 04:00 98.2 102 18 146/84 98 Room Air Laboratory: [ ] Laboratory: Test 06/24/24 05:41 06/24/24 05:00 06/23/24 04:37 Range/Units Whole Blood Glucose 188 H 70-110 MG/DL White Blood Count 9.8 4.8-10.8 K/uL Red Blood Count 3.06 L 4.50-6.20 MIL/uL Hemoglobin 9.3 L 14.0-18.0 g/dL Hematocrit 26.6 L 42-54 % Mean Corpuscular Volume 86.9 79-99 fL Mean Corpuscular Hemoglobin 30.4 27.0-33.0 pg Mean Corpuscular Hemoglobin Concent 35.0 32.0-36.0 g/dL Red Cell Distribution Width 14.9 11.0-15.5 % Platelet Count 87 L 130-400 K/uL Mean Platelet Volume 10.7 H 7.5-10.5 fL Immature Granulocyte % (Auto) 1.7 H 0-1 % Neutrophils (%) (Auto) 81.9 H 40.0-77.0 % Lymphocytes (%) (Auto) 7.4 L 21.0-51.0 % Monocytes (%) (Auto) 8.8 3.0-13.0 % Eosinophils (%) (Auto) 0.0 0.0-8.0 % Basophils (%) (Auto) 0.2 0.0-5.0 % Neutrophils # (Auto) 8.1 H 1.8-7.7 K/uL Lymphocytes # (Auto) 0.7 L 1.0-4.8 K/uL Monocytes # (Auto) 0.9 0.1-1.0 K/uL Eosinophils # (Auto) 0.00 0.00-0.70 K/uL Basophils # (Auto) 0.02 0.00-0.20 K/uL Absolute Immature Granulocyte (auto 0.17 0-1 K/uL Nucleated Red Blood Cells 0.0 0.0-0.19 % White Cell Morphology Comment See comments Sodium Level 141 136-145 mmol/L Potassium Level 3.4 L 3.5-5.1 mmol/L Chloride Level 99 L 101-111 mmol/L Carbon Dioxide Level 26 21-32 mmol/L Blood Urea Nitrogen 110 *H 7-18 mg/dL Creatinine 6.4 H 0.5-1.3 mg/dL Glomerular Filtration Rate Calc 9 >90 mL/min Random Glucose 206 H 70-105 mg/dL Total Calcium 6.6 L 8.5-10.1 mg/dL Phosphorus Level 5.3 H 2.5-4.9 mg/dL Magnesium Level 1.70 L 1.80-2.40 mg/dL Vancomycin Level 5.4 L 20.0-30.0 mcg/mL Vitamin B12 Level 854 193-986 pg/mL Folic Acid (LAB) 6.10 2-20 ng/mL Current Medications Medications (Trade) Dose Ordered Sig/Roderick Route PRN Reason Start Time Stop Time Status Last Admin Dose Admin Albuterol Sulfate (Proventil 0.083% 2.5mg/3ml) 10 mg ONCE STAT IH 06/17/24 04:05 06/17/24 04:12 DC 06/17/24 04:31 10 MG Amlodipine Besylate (NorvASC 5MG TAB) 5 mg BID PO 06/22/24 09:00 07/22/24 08:59 06/23/24 20:10 5 MG Calcium Gluconate (Calcium Gluc 1gm Vial) 1 gm AD STAT IV 06/17/24 04:05 06/17/24 04:12 DC 06/17/24 04:21 1 GM Cefepime HCl (MAXipime 1 GM vial) 0.25 gm Q24H IVPB 06/17/24 04:00 06/18/24 04:06 DC 06/17/24 04:58 0.25 GM Cefepime HCl (MAXipime 1 GM vial) 1 gm Q24H IVPB 06/20/24 05:00 06/22/24 16:09 DC 06/22/24 03:12 1 GM Cefepime HCl 0.25 gm/Sodium Chloride 50 ml @ 100 mls/hr Q24H IVPB 06/18/24 04:30 06/19/24 10:58 DC 06/19/24 05:26 100 MLS/HR Dextrose (D50w) 50 ml AD PRN IV HYPOGLYCEMIA PROTOCOL 06/17/24 01:00 06/17/24 01:01 DC Dextrose (D50w) 50 ml AD PRN IV HYPOGLYCEMIA PROTOCOL 06/17/24 01:00 07/17/24 00:59 Dextrose (D50w) 50 ml ONCE STAT IV 06/17/24 04:05 06/17/24 04:12 DC 06/17/24 04:21 50 ML Famotidine (Pepcid 20mg Vial) 20 mg Q48H IV 06/17/24 01:00 07/17/24 00:59 06/22/24 23:18 20 MG Furosemide (LASix 40MG VIAL) 40 mg Q8H IV 06/19/24 18:30 06/20/24 18:31 DC 06/20/24 18:54 40 MG Glucagon (Glucagon 1mg Kit) 1 mg AD PRN IM HYPOGLYCEMIA PROTOCOL 06/17/24 01:00 06/17/24 01:01 DC Glucagon (Glucagon 1mg Kit) 1 mg AD PRN IM HYPOGLYCEMIA PROTOCOL 06/17/24 01:00 07/17/24 00:59 Hydralazine HCl ([id number] TAB) 25 mg TID PO 06/22/24 09:00 07/22/24 08:59 06/23/24 20:10 25 MG Hydrocortisone Sodium Succinate (Solu-corTEF 100MG) 50 mg ONCE@1930 IV 06/22/24 19:30 06/22/24 22:30 DC 06/22/24 19:59 50 MG Hydrocortisone Sodium Succinate (Solu-corTEF 100MG) 50 mg Q8H IV 06/18/24 11:30 06/22/24 15:46 DC 06/22/24 03:12 50 MG Hydrocortisone Sodium Succinate (Solu-corTEF 100MG) 50 mg Q8H6 IV 06/23/24 06:00 07/23/24 05:59 06/24/24 05:04 50 MG Hydromorphone HCl (DiLAUDid 0.5MG INJ) 0.5 mg Q4H PRN IVP SEVERE PAIN (7-10) 06/20/24 13:00 06/25/24 12:59 06/21/24 23:50 0.5 MG Insulin Human Regular (humuLIN R 100 UNIT/ML 3ML) 10 unit ONCE STAT IV 06/17/24 04:05 06/17/24 04:12 DC 06/17/24 04:28 10 UNIT Insulin Human Regular (humuLIN R 100 UNIT/ML 3ML) INSULIN SLIDING SCAL... ACHS SQ 06/17/24 07:30 07/17/24 07:29 06/23/24 12:55 2 UNIT Lactated Ringer's 1,000 ml @ 130 mls/hr Q7H42M IV 06/21/24 09:30 07/21/24 09:29 06/24/24 05:04 130 MLS/HR Leptospermum Honey (Medihoney) 1 appl DAILY TP 06/19/24 09:00 07/19/24 08:59 06/23/24 12:54 1 APPL Magnesium Sulfate 50 ml @ 0 mls/hr PROTOCOL PRN IV MAGNESIUM PROTOCOL 06/23/24 11:30 07/23/24 11:29 06/24/24 05:57 25 MLS/HR Metronidazole/ Sodium Chloride (flaGYL) 500 mg Q8H IV 06/17/24 05:00 06/27/24 04:59 06/24/24 04:44 500 MG Micafungin Sodium 100 ml @ 100 mls/hr Q24H IV 06/18/24 00:00 07/18/24 00:00 06/23/24 23:27 100 MLS/HR Norepinephrine 250 ml @ 0 mls/hr PROTOCOL IV 06/16/24 22:00 06/22/24 07:20 DC 06/17/24 05:33 24.5 MLS/HR Ondansetron HCl (zoFRAN 4MG INJ) 4 mg Q6H PRN IVP NAUSEA/VOMITING 06/23/24 20:30 07/23/24 20:29 06/23/24 20:10 4 MG Pharmacy Profile Note (Lace Assessment) 1 each AD MISC 06/19/24 15:30 06/20/24 12:49 DC Pharmacy Profile Note (Pharmacy Communication) 1 each ONCE MISC 06/17/24 23:00 06/19/24 07:13 DC 06/17/24 23:31 1 EACH Pharmacy Profile Note (Pharmacy Communication) 1 each ONCE MISC 06/22/24 16:30 06/23/24 07:22 DC Phenylephrine HCl 100 mg/Sodium Chloride 250 ml @ 0 mls/hr AD PRN IV TITRATE 06/17/24 10:30 06/22/24 07:20 DC 06/18/24 05:48 27 MLS/HR Piperacillin Sod/ Tazobactam Sod (Zosyn 3.375gm+NS 50ml) 3.375 gm Q12H IV 06/16/24 21:30 06/17/24 01:03 DC 06/16/24 21:42 3.375 GM Piperacillin Sod/ Tazobactam Sod (Zosyn 3.375gm+NS 50ml) 3.375 gm Q12H IVPB 06/17/24 01:00 06/17/24 04:00 DC 06/17/24 02:54 3.375 GM Potassium Chloride 100 ml @ 100 mls/hr AD PRN IV POTASSIUM PROTOCOL 06/21/24 08:00 07/21/24 07:59 06/24/24 05:57 100 MLS/HR Potassium Chloride 100 ml @ 100 mls/hr AD PRN IV POTASSIUM PROTOCOL 06/23/24 11:30 07/23/24 11:29 Potassium Chloride (K-Dur/Klor-Con 20meq) 20 meq AD PRN PO POTASSIUM PROTOCOL 06/23/24 11:30 07/23/24 11:29 Potassium Chloride (K-Dur/Klor-Con 20meq) 40 meq BID PO 06/22/24 09:00 06/22/24 21:01 DC 06/22/24 19:54 40 MEQ Potassium Chloride (KCl 10% Elixir 20meq/15ml) 20 meq AD PRN PO POTASSIUM PROTOCOL 06/23/24 11:30 07/23/24 11:29 Sodium Bicarbonate / Dextrose 1,000 ml @ 0 mls/hr Q0M IVP 06/17/24 05:00 06/17/24 04:58 DC Sodium Bicarbonate 150 meq/Dextrose 1,150 ml @ 50 mls/hr Q23H IVP 06/18/24 08:00 06/19/24 12:24 DC 06/18/24 20:23 100 MLS/HR Sodium Bicarbonate 150 meq/Dextrose 1,150 ml @ 100 mls/hr [id number] IVP 06/17/24 05:00 06/18/24 04:44 DC 06/17/24 21:00 100 MLS/HR Sodium Polystyrene Sulfonate (kayEXALate 15 GM/60 ML) 15 gm Q2H PO 06/16/24 21:30 06/16/24 23:31 DC 06/16/24 22:21 15 GM Sodium Chloride 1,000 ml @ 150 mls/hr Q6H40M IV 06/16/24 23:00 06/17/24 09:10 DC 06/17/24 05:15 150 MLS/HR Sodium Chloride (NS 50ml) 50 ml AD IV 06/17/24 01:00 06/17/24 01:05 DC Thiamine HCl (Vitamin B-1) 100 mg DAILY IVP 06/17/24 09:00 07/17/24 08:59 06/23/24 12:54 100 MG Tigecycline 100 mg/Sodium Chloride 100 ml @ 200 mls/hr ONCE IV 06/22/24 16:30 06/23/24 07:21 DC 06/22/24 18:51 200 MLS/HR Tigecycline 50 mg/ Sodium Chloride 100 ml @ 200 mls/hr BID@0600,1800 IV 06/23/24 06:00 06/30/24 05:59 06/24/24 05:04 200 MLS/HR Vancomycin HCl (Vancomycin 750mg) 750 mg Q96H IVPB 06/20/24 22:00 06/17/24 14:00 DC Vancomycin HCl (Vancomycin Protocol) 1 each AD IV 06/17/24 01:30 06/17/24 14:01 DC Vitamin B Complex/ Vit C/Folic Acid (Nephrovite Tablet) 1 cap DAILY PO 06/24/24 09:00 07/24/24 08:59 Diagnostics / Radiology: [COPY/PASTE HERE IF NO REPORTS PLEASE DELETE SECTION] Assessment: Gastritis Acute blood loss anemia HTN DM Plan: Patient defers Colonoscopy Continue GI prophylaxis Advance diet as tolerated Avoid NSAIDs Antireflux measures Monitor H&H and transfuse as needed Call with questions, concerns or change in clinical status Patient to follow-up at clinic post discharge Thank you for this consult ANGEL BURDEN USPS LETTER CARRIER Jun 24, 2024 08:58
--- NOTE | 2024-06-24 09:16 | EKG ---
[facility] Test Date: 2024-06-24 Test Time: 08:10:44 Pat Name: SELENE HALL Department: 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
[2024-06-24] MEDS: Vitamin B Complex/Vit C/Folic Acid PO SCH (09:34)
[2024-06-24] MEDS: metoPROLOL tartRATE 1 MG/ML 5ML VIAL IV ONE (09:36)
--- NOTE | 2024-06-24 10:31 | NUR ---
Nutritional f/u Note: Chart, meds, and labs Reviewed. Pt s/p NEWS COMMENTATOR on 06/21/24 cleared pt for thin liquids. MD notes indicate pt pending EGD and continued poor nutritional intake. Pt has remained mostly NPO or on clear liquids since admission over one week ago. Pt is at high risk of refeeding syndrome . Pt pending SNF placement. Current condition supports need for aggressive nutrition. current labs suggest impaired renal function and poor nutritional reserves. Abnormal nutrition related labs: k 3.4, cl 99 ,bun 110, crea 6.4, ca 6.6, phos 5.3, mg 1.70 Nutrition-related Meds: Thiamine, Nephrovite, mg sulfate, lactated ringers, zofran Wt Status: current wt 98kg, admit wt 81kg. Recommend: -Continue NPO per medical management; reassess for oral tolerance. - consider EN via NG tube due to inadequate energy intake > 7days. initiate Vital AF Start @20ml/hr x 24hrs with 150ml H20 flush q 6. - if unable to tolerate EN, evaluated for PN due to malabsorption risk. -Monitor refeeding syndrome risk up initiation of nutrition: replete electrolytes before advancing nutrition (K+, phos and mg) Start at 50%-75% of estimated needs and advance as tolerated.-RD to provide further recommendations based on clinical progress. -When medically feasible and cleared by MD, consider CLinimix 5/15 % via central line at a rate of 41ml/hr, Include 10ml adult MVI and 3ml trace elements. -Lipid emulsion x 3 weekly M, W, F to prevent essential fatty acid deficiency -Check Lipid Panel weekly on Mondays -Monitor feeding tolerance, %, wt, and labs -If No BM >3days consider bowel stimulant. - Please notify RD if additional nutrition concerns arise. Addendum: 06/24/24 at [address] Amended: Links added.
--- NOTE | 2024-06-24 12:19 | NUR ---
CM NOTE CM f/u with patient regarding d/c planning to SNF. Patient asked CM to call his sister Kaylah Desai [phone]. States she is visiting facilities. CM called sister and asked for update on facility choice. Sister asked CM for in network SNF list. States she will let CM know decision later today. CM to f/u. Patient also now pending cardio consult for afib. Addendum: 06/24/24 at 1221 by PEG WILLIS CM Amended: Links added.
--- NOTE | 2024-06-24 13:00 | NUR ---
AFIB AT 0840 THIS MORNING I CALLED TELEMETRY TO FIND OUT THE RHYTHM OF THE PATIENT TO WHICH THEY REPORTED AFIB HR 115. I CHECKED THE HISTORY AND SAW NO NOTE OR RECORD FOR A HISTORY OF AFIB. I THEN CALLED TELEMETRY AGAIN TO FIND OUT WHEN THE PATIENT HAD STARTED WITH AFIB TO WHICH THEY RESPONDED THAT HE HAD BEEN RUNNING AFIB OVER NIGHT AND HAD BEEN GOING FROM AFIB TO NSR AND VISE VERSA. I NOTIFIED THE PRIMARY MD, DR. CARDONA TO WHICH HE ORDERED A DOSE OF METOPROLOL, EKG, AND CARDIOLOGY CONSULT. THE EKG SHOWED AFLUTTER. DR. CARDONA WAS NOTIFIED AND INSTRUCTED ME TO PROCEED WITH THE METOPROLOL. DR. Lala PÉREZ WAS ALSO NOTIFIED OF THE EKG RESULTS, SHE DID NOT GIVE ANY ORDERS. POST METOPROLOL DR. CARDONA STATED THAT ANOTHER DOSE WAS NOT REQUIRED SINCE THE PATIENTS HR HAD COME DOWN TO AROUND 88.
--- NOTE | 2024-06-24 13:01 | PN ---
NEPHROLOGY PROGRESS NOTE Date/Time Patient Seen: Jun 24, 2024 SUBJECTIVE: This is a 69-year-old male with a past medical history of peripheral artery disease with osteomyelitis S/p left 4th and 5th toe and right 3rd toe amputation, anemia, chronic pain, diabetes mellitus type 2, hypertension, hyperlipidemia, chronic kidney disease, recent COVID-19 infection. He presented to the emergency room via EMS from [facility] with complaints of low platelets, poor appetite and generalized weakness. Influenza and COVID swabs were negative CT of the abdomen showed mild enterocolitis with mild to moderate small and large bowel liquid contents. He was admitted to the ICU for further medical management of septic shock He continues to require vasopressors to maintain blood pressure. Continues with a severe lactic acidosis. Blood cultures were positive for Alicia tropicalis He continues on antibiotics In the emergency room he was noted to have elevated BUN/creatinine and hyperkalemia. Renal function is continues to improve Electrolytes are stable. Urine output was noted Renal ultrasound was noted Hematology evaluation continues Pending transfer to telemetry floor due to A-fib. He was seen in the medical floor, in no acute distress Family at the bedside Condition remains critical and guarded REVIEW OF SYSTEMS: Unable to obtain due to patient's status PHYSICAL EXAM: GENERAL: Lethargic. No acute distress. Well-nourished. EYES: EOMI. Anicteric. HENT: Moist mucous membranes. No scleral icterus. No cervical lymphadenopathy. LUNGS: Clear to auscultation bilaterally. No accessory muscle use. CARDIOVASCULAR: Regular rate and rhythm. No murmur. No JVD. ABDOMEN: Soft, non-tender and non-distended. No palpable masses. EXTREMITIES: No edema. Non-tender. SKIN: No rashes or lesions. Warm. NEUROLOGIC: No focal neurological deficits. CN II-XII grossly intact, but not individually tested. PSYCHIATRIC: Cooperative. Appropriate mood and affect. LABORATORY: [ ] Hematology Labs: Test 06/24/24 05:00 Range/Units White Blood Count 9.8 4.8-10.8 K/uL Red Blood Count 3.06 L 4.50-6.20 MIL/uL Hemoglobin 9.3 L 14.0-18.0 g/dL Hematocrit 26.6 L 42-54 % Mean Corpuscular Volume 86.9 79-99 fL Mean Corpuscular Hemoglobin 30.4 27.0-33.0 pg Mean Corpuscular Hemoglobin Concent 35.0 32.0-36.0 g/dL Red Cell Distribution Width 14.9 11.0-15.5 % Platelet Count 87 L 130-400 K/uL Mean Platelet Volume 10.7 H 7.5-10.5 fL Immature Granulocyte % (Auto) 1.7 H 0-1 % Neutrophils (%) (Auto) 81.9 H 40.0-77.0 % Lymphocytes (%) (Auto) 7.4 L 21.0-51.0 % Monocytes (%) (Auto) 8.8 3.0-13.0 % Eosinophils (%) (Auto) 0.0 0.0-8.0 % Basophils (%) (Auto) 0.2 0.0-5.0 % Neutrophils # (Auto) 8.1 H 1.8-7.7 K/uL Lymphocytes # (Auto) 0.7 L 1.0-4.8 K/uL Monocytes # (Auto) 0.9 0.1-1.0 K/uL Eosinophils # (Auto) 0.00 0.00-0.70 K/uL Basophils # (Auto) 0.02 0.00-0.20 K/uL Absolute Immature Granulocyte (auto 0.17 0-1 K/uL Nucleated Red Blood Cells 0.0 0.0-0.19 % White Cell Morphology Comment See comments Chemistry Labs: Test 06/24/24 11:24 06/24/24 05:00 06/23/24 04:37 Range/Units Whole Blood Glucose 200 H 70-110 MG/DL Sodium Level 141 136-145 mmol/L Potassium Level 3.4 L 3.5-5.1 mmol/L Chloride Level 99 L 101-111 mmol/L Carbon Dioxide Level 26 21-32 mmol/L Blood Urea Nitrogen 110 *H 7-18 mg/dL Creatinine 6.4 H 0.5-1.3 mg/dL Glomerular Filtration Rate Calc 9 >90 mL/min Random Glucose 206 H 70-105 mg/dL Total Calcium 6.6 L 8.5-10.1 mg/dL Phosphorus Level 5.3 H 2.5-4.9 mg/dL Magnesium Level 1.70 L 1.80-2.40 mg/dL Vitamin B12 Level 854 193-986 pg/mL Folic Acid (LAB) 6.10 2-20 ng/mL DIAGNOSTICS / RADIOLOGY: REASON: SOB ORDERING PHYSICIAN: LALI BOLDEN TIN RECOVERY WORKER PROCEDURE: CXR1VW - CHEST 1VW PORTABLE CHEST RADIOGRAPH INDICATION: SOB COMPARISON: 06/18/2024 FINDINGS: monitor tech leads overlie the field of view. Tip of right PICC within the SVC. Heart remains enlarged. The pulmonary vascularity and mauricio appear normal. No abnormal pulmonary parenchymal opacity or consolidation identified. No significant pleural effusion noted. No pneumothorax detected. IMPRESSION: Stable cardiac megaly without radiographic evidence for any acute cardiopulmonary process. DICTATED BY: ROLANDO HAN MD DATE: 06/19/24 1011 REASON: SOB ORDERING PHYSICIAN: LALI BOLDEN TIN RECOVERY WORKER PROCEDURE: CXR1VW - CHEST 1VW PORTABLE CHEST RADIOGRAPH INDICATION: SOB COMPARISON: 06/16/2024 FINDINGS: monitor tech leads overlie the field of view. Patient positioning is not optimal, but the radiologic examination is still believed to be of reasonable diagnostic quality. Stable right PICC. Stable heart size. Mild calcific plaque is present along the aortic arch rosales. The pulmonary vascularity and mauricio appear normal. Suspect very small layering right and very small left pleural effusions with subjacent passive linear opacities. No evidence for consolidation. No pneumothorax detected. IMPRESSION: Suspect very small layering right and very small left pleural effusions with subjacent passive atelectasis. DICTATED BY: ROLANDO HAN MD DATE: 06/19/24 1021 REASON: sob ORDERING PHYSICIAN: LILIAM LACY RAILROAD SUPERVISOR OF ENGINES PROCEDURE: ECHO CMP - ECHO 2-D COMPLETE APPROVED REPORT EXAM: Two-dimensional and M-mode echocardiogram with Doppler and color Doppler. INDICATION ICD: R06.02 Shortness of breath 2D Dimensions RVDd 5.0 cm LVEF(%) 68.3 (>50%) LVED Vol(simp.) 128.0 mL IVSd 1.4 (0.7-1.1cm) FS(%) 38 % LVES Vol(simp.) 51.0 mL LVDd 4.2 (3.8-5.6cm) LA (2D) 4.0 (1.6-4.0cm) LVEF(%, simp.) 60 % PWd 1.5 (0.7-1.1cm) Ao Root(2D) 4.0 (2.0-3.7cm) LA ESV INDEX (BP) 37.99 mL/m2 LVDs 2.6 (2.5-4.0cm) LVOT diam 2.3 (1.8-2.4cm) IVC diam 2.1 cm Deformation Strain Apical 4 -19.0 % Apical 2 -15.0 % Apical 3 -16.0 % Global Strain -17.0 % M-Mode Dimensions EPSS 1.1 cm LA (MM) 4.0 (1.6-4.0cm) Ao Root(MM) 3.0 (2.0-3.7cm) Aortic Valve AoV Vmax 2.5 m/s Ao Peak GR 24.7 mmHg LVOT Vmax 1.5 m/s AoV VTI 0.4 m Ao Mean GR 15.1 mmHg LVOT VTI 0.29 m DEBORA (VMAX) 2.9 cm2 DEBORA (VTI) 2.9 cm2 Mitral Valve MV E Vmax 144.9 cm/s DECEL Time 175 ms MV A Vmax 128.2 cm/s P 1/2 T 58 ms E/A ratio 1.1 MVA (PHT) 3.8 cm2 TDI E/E' Medial 16.1 E/E' Lateral 14.5 Medial E' Peak V 9.00 cm/s Lateral E' Peak V 10.00 cm/s Pulmonary Valve PV Vmax 1.3 m/s Tricuspid Valve TR Vmax 2.7 m/s RAP (EST) 3 mmHg RVSP 32.3 mmHg TR Peak GR 29.3 mmHg Left Ventricle The left ventricle is normal size. GS -17%. Hyoerdynamic LV with normal LV segmental wall motion. Moderate concentric left ventricular hypertrophy. LVEF is 60-65%. Grade 2 diastolic dysfunction. Right Ventricle The right ventricle is moderately dilated, measuring 5.0 cm. The right ventricular systolic function is normal. Atria The left atrium is mildly dilated with an LA ESV index of 38 mL/m�. The right atrium is moderately dilated. Aortic Valve Aortic valve is trileaflet, with mild sclerosis of the left coronary cusp. The aortic valve is seen to open near normally. No aortic regurgitation is present. There is no aortic valvular stenosis. Mitral Valve Mitral valve leaflets open well. Posterior annular and leaflet calcification noted. There is no mitral valve regurgitation noted. There is no mitral valve stenosis. Tricuspid Valve The tricuspid valve is normal in structure. There is trace of tricuspid valve regurgitation noted. Pulmonic Valve The pulmonary valve is normal in structure. There is no pulmonic valvular regurgitation. Great Vessels The aortic root is normal in size. The IVC is normal in size and collapses >50% with inspiration. Pericardium There is no pericardial effusion. Other Information Quality : Adequate Conclusion The left ventricle is normal size. Moderate concentric left ventricular hypertrophy. GS -17%. Hyoerdynamic LV with normal LV segmental wall motion. LVEF is 60-65%. Grade 2 diastolic dysfunction. Aortic valve is trileaflet, with mild sclerosis of the left coronary cusp. The aortic valve is seen to open near normally. There is no aortic valvular stenosis. Mitral valve leaflets open well. Posterior annular and leaflet calcification noted. There is no mitral valve stenosis. There is no mitral valve regurgitation noted. There is no pericardial effusion. DICTATED BY: KATJA LANDRY MD DATE: 06/17/24 0847 REASON: RENAL FAILURE ORDERING PHYSICIAN: EUSEBIO POWELL PROCEDURE: ABD PEL WO - CT ABDOMEN/PELVIS W/O CONTRAST CT ABDOMEN WITHOUT CONTRAST. CT PELVIS WITHOUT CONTRAST. INDICATION: Renal failure TECHNIQUE: Routine transaxial imaging using 5 mm slice thickness through the abdomen and pelvis without the administration of IV contrast. Thin slice reconstructions are also provided. Coronal and sagittal reformatted images acquired for interpretation. CT was performed with one or more of the following dose reduction techniques: Automated exposure control, adjustment of the mA and/or kV according to patient size, or use of iterative reconstruction technique. COMPARISON: None FINDINGS: Diagnostic sensitivity of this examination is limited by patient motion artifact. ON NONCONTRAST IMAGING: ABDOMEN: Heart size is normal. Mitral annular calcific plaque. Visible lung bases are clear. No abnormal renal calcifications, hydronephrosis, perinephric inflammation, or proximal hydroureter detected. The liver is normal in size and smooth in contour without biliary duct dilation. The spleen is normal in size and attenuation. Several miniscule calcifications within the gallbladder lumen. The pancreas appears normal without pancreatic duct dilation. The adrenal glands appear normal. No significant abdominal, retrocrural or retroperitoneal adenopathy noted. No evidence for intra-abdominal free air or organized fluid collection. Mild calcific plaque is noted along the abdominal aortic and iliac vessel rosales without aneurysmal dilation. PELVIS: Gallagher catheter within the nearly empty urinary bladder. Urinary bladder wall thickening is more than expected for empty urinary bladder. No evidence for free air or organized pelvic fluid collection. No significant pelvic adenopathy detected. Mild to moderate small and large bowel liquid contents. A few diverticula along the distal colon. Terminal ileum appears unremarkable. The appendix appears normal. Mild thoracolumbar spondylosis. IMPRESSION: 1. Probable mild enterocolitis with mild to moderate small and large bowel liquid contents. 2. Cholelithiasis. 3. Urinary bladder wall thickening, more than expected for empty urinary bladder. Correlation with urine studies is recommended. 4. Mild distal colonic diverticulosis. 5. Arteriosclerotic disease as described. DICTATED BY: ROLANDO HAN MD DATE: 06/17/24 1000 REASON: NETO ORDERING PHYSICIAN: BRENDA MAI MD PROCEDURE: RENAL - US RENAL SONOGRAM ULTRASOUND RENAL COMPLETE INDICATION: NETO TECHNIQUE: Routine ultrasound of the kidneys and urinary bladder with grayscale and color Doppler imaging was performed in real-time, and subsequently made available for review. COMPARISON: No prior studies available for comparison. FINDINGS: The right kidney measures 9.7 x 4.9 x 4.6 cm. No abnormal mass demonstrated. No evidence for hydronephrosis or shadowing stone. The left kidney measures 10.1 x 5.5 x 4.8 cm. No abnormal mass demonstrated. No evidence for hydronephrosis or shadowing stone. Urinary bladder wall thickness measures 4.0 mm, but exaggerated due to incomplete distention. No free fluid demonstrated. IMPRESSION: Normal sonographic appearance of the kidneys and urinary bladder. DICTATED BY: ROLANDO HAN MD DATE: 06/17/24 0949 REASON: cp ORDERING PHYSICIAN: MARY CARR MD PROCEDURE: CXR1VW - CHEST 1VW PORTABLE CHEST RADIOGRAPH INDICATION: cp COMPARISON: 05/06/2024 FINDINGS: monitor tech leads overlie the field of view. Tip of right PICC within the SVC. Heart size is normal. Mild calcific plaque is present along the aortic arch rosales. The pulmonary vascularity and mauricio appear normal. No abnormal pulmonary parenchymal opacity or consolidation identified. No significant pleural effusion noted. No pneumothorax detected. IMPRESSION: No radiographic evidence for any acute cardiopulmonary process. DICTATED BY: ROLANDO HAN MD DATE: 06/16/24 3332 ASSESSMENT: Acute on chronic renal failure Severe Lactic acidosis Metabolic acidosis Hyperkalemia Septic shock, requiring vasopressor Acute encephalopathy Thrombocytopenia NSTEMI, rule-out demand ischemia vs true cardiac etiology Failure to thrive History of osteomyelitis with recent amputation Elevated troponin Elevated BNP Diabetes mellitus type 2 Hypertension Hyperlipidemia Peripheral artery disease PLAN: Labs, diagnostic, radiologic exams reviewed and interpreted by myself and supervising physician. We have reviewed external records in detail There is no need for emergent renal replacement therapy at this time. Pending transfer to telemetry floor. Require close monitoring of renal function and electrolytes Order CBC, CMP, and electrolytes in am Follow up culture results BiPAP as necessary, for respiratory distress Monitor blood pressure adjust medication doses as needed Avoid hypotensive episodes May use Dilaudid 0.5 mg IV every 6 hours as needed for severe pain Monitor blood sugars Strict intake, output, and daily weight should be monitored Please renally adjust medications Avoid nephrotoxic and nonsteroidal drugs Avoid contrast if possible Will continue to monitor renal function, anemia, electrolytes Treatment plan discussed with patient Questions were answered We have discussed with the other team physicians in detail about the care plan We will continue to monitor the patient closely ATTESTATION BY PHYSICIAN I have seen and examined the patient. I reviewed the documentation, medical decision making, and treatment plan as noted by the mid-level provider above. I agree with the findings and plan of care. BRENDA MAI MD, [facility] Jun 24, 2024 13:01
--- NOTE | 2024-06-24 13:36 | PN ---
[facility] CARDIOLOGY RE-CONSULTATION NOTE Cardiology re-consultation note dictated for Jocelyn Bae MD Date Patient Seen: Jun 24, 2024 Interval History: This is a 69-year-old [place] male with a past medical history of hypertension, hyperlipidemia, type 2 diabetes mellitus, chronic kidney disease stage IIIB with estimated GFR of 30 on 05/05/2024 (creatinine 2.3), peripheral artery disease, prior right foot 1st and 2nd ray amputation and more recent left 4th and 5th ray amputation (March 2024-[place]) with slow healing left lateral plantar ulcer, osteomyelitis of the left 4th and 5th amputation sites during that admission here 05/05/2024. He was treated with IV antibiotic therapy and was discharged to the [facility] 05/09/2024 for continued antibiotic therapy and wound care. He has been admitted with severe septic shock, thrombocytopenia and acute on chronic renal failure with creatinine of 9.9. Cardiology was initially consulted for elevated troponin in the setting of septic shock and signed off on 06/18. Cardiology has been re-consulted new onset atrial fibrillation with conversion to atrial flutter. Overnight heart rate up to the 120's. Today, the patient's heart rate reached 115bpm in which he was given Lopressor 5mg IVx1. His heart rate has now remained in the 90's. The patient's Hgb decreased to 6.1 on 06/20, he has since refused a colonoscopy. Physical Examination: HEAD: Normal with no signs of head trauma. NECK: Supple without JVD. There is no tenderness, lymphadenopathy, or masses. No thyromegaly. Normal carotid upstrokes without bruits. LUNGS: Clear breath sounds bilaterally. No wheezes, or rhonchi. HEART: Underlying tachycardia. Normal S1 and S2 without murmurs, gallop or rub. VASC: Peripheral pulses nonpalpable. ABD: Bowel sounds normal, soft, nontender, no masses, no organomegaly. No audible bruits. EXT: No pedal edema. There is a well-healed right 1st and 2nd ray amputation. The left 4th and 5th foot amputation has an ulcer at the base of the surgical site. SKIN: No rashes or lesions noted. NEURO: Awake, and alert but disoriented. No focal sensory moves all extremities but has generalized weakness. Laboratory: Hematology Labs: Test 06/24/24 05:00 Range/Units White Blood Count 9.8 4.8-10.8 K/uL Red Blood Count 3.06 L 4.50-6.20 MIL/uL Hemoglobin 9.3 L 14.0-18.0 g/dL Hematocrit 26.6 L 42-54 % Mean Corpuscular Volume 86.9 79-99 fL Mean Corpuscular Hemoglobin 30.4 27.0-33.0 pg Mean Corpuscular Hemoglobin Concent 35.0 32.0-36.0 g/dL Red Cell Distribution Width 14.9 11.0-15.5 % Platelet Count 87 L 130-400 K/uL Mean Platelet Volume 10.7 H 7.5-10.5 fL Immature Granulocyte % (Auto) 1.7 H 0-1 % Neutrophils (%) (Auto) 81.9 H 40.0-77.0 % Lymphocytes (%) (Auto) 7.4 L 21.0-51.0 % Monocytes (%) (Auto) 8.8 3.0-13.0 % Eosinophils (%) (Auto) 0.0 0.0-8.0 % Basophils (%) (Auto) 0.2 0.0-5.0 % Neutrophils # (Auto) 8.1 H 1.8-7.7 K/uL Lymphocytes # (Auto) 0.7 L 1.0-4.8 K/uL Monocytes # (Auto) 0.9 0.1-1.0 K/uL Eosinophils # (Auto) 0.00 0.00-0.70 K/uL Basophils # (Auto) 0.02 0.00-0.20 K/uL Absolute Immature Granulocyte (auto 0.17 0-1 K/uL Nucleated Red Blood Cells 0.0 0.0-0.19 % White Cell Morphology Comment See comments Chemistry Labs: Test 06/24/24 11:24 06/24/24 05:00 06/23/24 04:37 Range/Units Whole Blood Glucose 200 H 70-110 MG/DL Sodium Level 141 136-145 mmol/L Potassium Level 3.4 L 3.5-5.1 mmol/L Chloride Level 99 L 101-111 mmol/L Carbon Dioxide Level 26 21-32 mmol/L Blood Urea Nitrogen 110 *H 7-18 mg/dL Creatinine 6.4 H 0.5-1.3 mg/dL Glomerular Filtration Rate Calc 9 >90 mL/min Random Glucose 206 H 70-105 mg/dL Total Calcium 6.6 L 8.5-10.1 mg/dL Phosphorus Level 5.3 H 2.5-4.9 mg/dL Magnesium Level 1.70 L 1.80-2.40 mg/dL Vitamin B12 Level 854 193-986 pg/mL Folic Acid (LAB) 6.10 2-20 ng/mL Diagnostics / Radiology: 2D echocardiogram 06/17/2024: The left ventricle is normal size. Moderate concentric left ventricular hypertrophy. GS -17%. Hyoerdynamic LV with normal LV segmental wall motion. LVEF is 60-65%. Grade 2 diastolic dysfunction. Aortic valve is trileaflet, with mild sclerosis of the left coronary cusp. The aortic valve is seen to open near normally. There is no aortic valvular stenosis. Mitral valve leaflets open well. Posterior annular and leaflet calcification noted. There is no mitral valve stenosis. There is no mitral valve regurgitation noted. There is no pericardial effusion. Impression and Plan: New onset atrial fibrillation with RVR and atrial flutter Septic shock POA Severe lactic acidosis 9.1 POA Acute on chronic renal failure with admission creatinine of 9.9 and estimated GFR of 5 (prior GFR of 30 and creatinine of 2.3 on 05/05/2024) Thrombocytopenia Type 2 IA with troponin rising to 581 in the setting of septic shock, severe lactic acidosis, and acute renal failure Normal LV systolic function with an LVEF of 60-65% and grade 2 diastolic dysfunction by 2D echocardiogram 06/17/2024 Osteomyelitis of the left 4th and 5th ray amputation during admission 05/05/2024 Peripheral artery disease Hypertension Hyperlipidemia Type 2 diabetes mellitus New onset atrial fibrillation with RVR and atrial flutter Heart rate overnight reaching 120's The patient received Lopressor 5mg IV x1 with a decrease in his hr into the 90's today [id number] Score of 3 points -Start on Amiodarone infusion per protocol with bolus, Eliquis 5mg bid, and Metoprolol tartrate 25mg BID -Electrolyte replacement protocol per renal dosing to keep K+>4.0 and Mg >2.0 MAYDA BRAVO Jun 24, 2024 13:36 JOCELYN BAE MD Jun 25, 2024 09:56
[2024-06-24] MEDS ORDERED: EPOETIN ALFA-EPBX (NON-ESRD) 10,000 UNIT/ML VIAL SQ SCH (14:00)
[2024-06-24] MEDS: APIXaban 5 MG TABLET PO SCH (14:37)
[2024-06-24] MEDS: EPOETIN ALFA-EPBX (NON-ESRD) 10,000 UNIT/ML VIAL SQ SCH (14:37)
[2024-06-24] MEDS: metoPROLOL tartRATE 25 MG TAB PO SCH (14:37)
--- NOTE | 2024-06-24 14:51 | NUR ---
TRANSFER REPORT GIVEN TO BHAVESH LUJAN. PT TRANSFERRED TO ROOM 224 FOR AMIO DRIP DUE TO A FLUTTER PER DR. CLEMENTS.
[2024-06-24] MEDS: AMIOdarone 150MG/100ML BAG 100 ML IV ONE (15:34)
[2024-06-24] MEDS: AMIOdarone 900MG VIAL 360 MG in DEXTROSE 5%-WATER 200 ML IV SCH (15:51)
--- NOTE | 2024-06-24 16:26 | PN ---
[facility] PROGRESS NOTE Date of Service: Jun 24, 2024 Time of Service: 16:22 SUBJECTIVE: Patient is seen and examined at bedside, case discussed with the RN, during my visit the patient resting comfortably in bed, following simple commands, he is on blood pressure support with Levophed, getting sodium bicarbonate IV. BP 108/57, heart rate of 116, saturating 99% on 2 L nasal cannula. Hemoglobin 8.4, hematocrit 27.0, WBC 14.2, platelet count of 28. Sodium 143, potassium 5.0, bicarb of five, BUN 107, creatinine 9.7. ABG with pH of 7.8, pCO2 less than 15, bicarb of 2.3. 06/18 patient has been seen and examined at bedside, case discussed with the RN, patient remains confused, still on pressor support with Levophed and Andrew- Synephrine, patient also on sodium bicarbonate drip. No family members at bedside during my visit. Blood pressure 112/44, heart rate of 91, saturating 93%. CBC with WBC of 16.4, hemoglobin 8.2, hematocrit 23.7, platelet count of 27. Sodium 145, potassium 3.7, BUN of 102, creatinine 10.2, sodium bicarb of 12. ABG with pH of 7.33, pCO2 31, PO2 64, bicarb of 16.1. Septic workup reviewed, blood cultures no growth after 24 hours. Patient getting broad- spectrum IV antibiotics during my visit. CT of the abdomen pelvis probable mild enterocolitis with mild to moderate small and large bowel liquid content, cholelithiasis, urinary wall thickening, more than expected for empty urinary bladder. Mild distal colonic diverticulosis. 06/19 patient is seen and examined at bedside, case discussed with the RN, no acute events overnight, patient is still confused, however less compared to time of admission. Following very simple commands. He is currently off vasopressors. Replace, output since this morning 500 cc. Blood pressure 111/78, afebrile, saturating 96-98% 2 L nasal cannula. WBC trending down at 11.2, hemoglobin 7.6, hematocrit 20.9, platelet count of 14. BUN 108, creatini ne 10.2. ABG shows a pH 7.41, pCO2 37, PO2 81.5, bicarb 23.1. Blood culture showing Alicia tropicalis. Patient has been started on micafungin. Continue antibiotics. Continue critical care input and recommendation, continue Nephrology input and recommendation in terms of renal replacement therapy, continue daily weight, monitor intake and output. Follow anemia workup, stool o ccult blood, serial CBC transfuse 1 unit of PRBC hemoglobin less than seven, we will request Hematology consultation as well. 06/20 patient seen at bedside, no acute events overnight. He is not requiring pressors he is afebrile, hemodynamically stable saturating well on 2 L nasal cannula. Hemoglobin was 6.1 and platelets low at night, we will be transfused with packed red blood cells and platelets per critical Care, we will follow up post transfusion. Potassium decreased from 3.4 down to 3.2, creatinine stable at 10.2, we will follow up with Nephrology for recommendations. Urine output is improving, he has been started on Lasix, we will follow up. Patient continues on micafungin. Pt reticulocyte count low at 0.18 suggesting decreased production of RBC, FOBT positive as well concerning for GI Bleed. Will consult hematology and GI and follow up 06/21 patient seen at bedside, no acute events overnight. He has been afebrile, hemodynamically stable saturating well on 2 L nasal cannula. He has been NPO however he has no history of volume overload, and his kidney function is decreased, we will perfuse his kidneys with some IV fluids and allow clear liquid diet. Creatinine stable at 9.9, same as yesterday, potassium decreased at 3.0, nephrology to manage potassium levels until renal function improves. Hemoglobin improved from 8.0 up to 8.7, remainder of his labs are relatively unremarkable. 06/22 Pt seen at bedside, no acute events overnight. He has been downgraded from ICU. He has been afebrile, hemodynamically stable, saturating well on room air. Hgb stable at 8.6, similar to yesterday, platelets decreased from 102 down to 82, potassium low at 2.7, will be repleted according to protocol, creatinine improved from 9.9 down to 8.5, sodium improved from 150 down to 146, remainder of his labs are relatively unremarkable. Urine output adequate, approximately 2.3L output in the last 24 hours. On physical exam, no evidence of volume overflow, will continue with IV fluids to perfuse his kidneys. Left foot grow ing mullins-resistant organism, ID to adjust antibiotics 06/23 patient seen at bedside, no acute events overnight. He is pending EGD with GI today, we will follow up postprocedure. He has been afebrile, hemodynamically stable, mildly hypertensive with systolics in the 150s, saturating well on 3 L nasal cannula. Hemoglobin improved from 8.6 up to 9.0, platelets decreased from 82 down to 78, creatinine continues to improve from 8.5 down to 7.2 with adequate urine output. Potassium low at 3.1, we will be reple nemesio according to potassium protocol. Patient weak and feeble, we will likely need transitioned to custodial facility, case management to assist with placement. He will continue daily physical therapy. 06/24 patient seen at bedside, no acute events overnight. EGD was done yesterday no evidence of bleed noted. Patient refusing colonoscopy. Hgb is uptrending from 9.0 up to 9.3 suggesting resolution of GI bleed, platelets improved from 78 up to 87, creatinine improved from 7.2 down to 6.4, potassium low at 3.4, will be repleted according to protocol. Patient will need placement for IV antibiotics REVIEW OF SYSTEMS 12 point review of systems negative unless noted in HPI PHYSICAL EXAM GENERAL APPEARANCE: The patient remains confused. Withdrawing to painful stimulation. NEUROLOGICAL: Cranial nerves II-XII grossly intact. Motor is 5/5 in bilateral upper and lower extremities proximal to distal. No sensory deficits. HEENT: Face is symmetric. Pupils are equal and reactive. Extraocular movements are intact. NECK: Supple. No JVD. No thyromegaly. No submental, submandibular, pre- /postauricular, occipital or supraclavicular lymphadenopathy. CHEST: Normal chest expansion. No Telemetry. LUNGS: Absence of any rales, rhonchi or any wheezing. CARDIOVASCULAR: Regular. S1 and S2 normal. No appreciable rubs, murmurs or gallops. ABDOMEN: Soft, nontender, and nondistended. There is no rebound, voluntary guarding, or rigidity. : Deferred. No Gallagher. EXTREMITIES: Non-edematous and not cyanotic. No clubbing. Good capillary refill. SKIN: No skin breakdown. Vital Signs (last 8hr) Date Time Temp Pulse Resp B/P (MAP) Pulse Ox O2 Delivery O2 Flow Rate FiO2 06/24/24 12:00 97.3 104 16 140/84 98 Room Air 06/24/24 09:36 98 147/76 LABS: Laboratory: Test 06/24/24 11:24 06/24/24 05:00 06/23/24 04:37 Range/Units Whole Blood Glucose 200 H 70-110 MG/DL White Blood Count 9.8 4.8-10.8 K/uL Red Blood Count 3.06 L 4.50-6.20 MIL/uL Hemoglobin 9.3 L 14.0-18.0 g/dL Hematocrit 26.6 L 42-54 % Mean Corpuscular Volume 86.9 79-99 fL Mean Corpuscular Hemoglobin 30.4 27.0-33.0 pg Mean Corpuscular Hemoglobin Concent 35.0 32.0-36.0 g/dL Red Cell Distribution Width 14.9 11.0-15.5 % Platelet Count 87 L 130-400 K/uL Mean Platelet Volume 10.7 H 7.5-10.5 fL Immature Granulocyte % (Auto) 1.7 H 0-1 % Neutrophils (%) (Auto) 81.9 H 40.0-77.0 % Lymphocytes (%) (Auto) 7.4 L 21.0-51.0 % Monocytes (%) (Auto) 8.8 3.0-13.0 % Eosinophils (%) (Auto) 0.0 0.0-8.0 % Basophils (%) (Auto) 0.2 0.0-5.0 % Neutrophils # (Auto) 8.1 H 1.8-7.7 K/uL Lymphocytes # (Auto) 0.7 L 1.0-4.8 K/uL Monocytes # (Auto) 0.9 0.1-1.0 K/uL Eosinophils # (Auto) 0.00 0.00-0.70 K/uL Basophils # (Auto) 0.02 0.00-0.20 K/uL Absolute Immature Granulocyte (auto 0.17 0-1 K/uL Nucleated Red Blood Cells 0.0 0.0-0.19 % White Cell Morphology Comment See comments Sodium Level 141 136-145 mmol/L Potassium Level 3.4 L 3.5-5.1 mmol/L Chloride Level 99 L 101-111 mmol/L Carbon Dioxide Level 26 21-32 mmol/L Blood Urea Nitrogen 110 *H 7-18 mg/dL Creatinine 6.4 H 0.5-1.3 mg/dL Glomerular Filtration Rate Calc 9 >90 mL/min Random Glucose 206 H 70-105 mg/dL Total Calcium 6.6 L 8.5-10.1 mg/dL Phosphorus Level 5.3 H 2.5-4.9 mg/dL Magnesium Level 1.70 L 1.80-2.40 mg/dL Vancomycin Level 5.4 L 20.0-30.0 mcg/mL Vitamin B12 Level 854 193-986 pg/mL Folic Acid (LAB) 6.10 2-20 ng/mL Current Medications Medications (Trade) Dose Ordered Sig/Roderick Route PRN Reason Start Time Stop Time Status Last Admin Dose Admin Albuterol Sulfate (Proventil 0.083% 2.5mg/3ml) 10 mg ONCE STAT IH 06/17/24 04:05 06/17/24 04:12 DC 06/17/24 04:31 10 MG Amiodarone HCl 360 mg/Dextrose 200 ml @ 0 mls/hr PROTOCOL IV 06/24/24 14:30 07/24/24 14:29 06/24/24 15:51 33.33 MLS/HR Amiodarone HCl 540 mg/Dextrose 300 ml @ 0 mls/hr PROTOCOL IV 06/24/24 21:00 07/24/24 20:59 Amlodipine Besylate (NorvASC 5MG TAB) 5 mg BID PO 06/22/24 09:00 07/22/24 08:59 06/24/24 09:45 5 MG Apixaban (EliquIS) 5 mg BID PO 06/24/24 14:30 07/24/24 14:29 06/24/24 14:37 5 MG Calcium Gluconate (Calcium Gluc 1gm Vial) 1 gm AD STAT IV 06/17/24 04:05 06/17/24 04:12 DC 06/17/24 04:21 1 GM Cefepime HCl (MAXipime 1 GM vial) 0.25 gm Q24H IVPB 06/17/24 04:00 06/18/24 04:06 DC 06/17/24 04:58 0.25 GM Cefepime HCl (MAXipime 1 GM vial) 1 gm Q24H IVPB 06/20/24 05:00 06/22/24 16:09 DC 06/22/24 03:12 1 GM Cefepime HCl 0.25 gm/Sodium Chloride 50 ml @ 100 mls/hr Q24H IVPB 06/18/24 04:30 06/19/24 10:58 DC 06/19/24 05:26 100 MLS/HR Dextrose (D50w) 50 ml AD PRN IV HYPOGLYCEMIA PROTOCOL 06/17/24 01:00 06/17/24 01:01 DC Dextrose (D50w) 50 ml AD PRN IV HYPOGLYCEMIA PROTOCOL 06/17/24 01:00 07/17/24 00:59 Dextrose (D50w) 50 ml ONCE STAT IV 06/17/24 04:05 06/17/24 04:12 DC 06/17/24 04:21 50 ML Epoetin Rylan-epbx (Retacrit) 10,000 unit [id number] SQ 06/24/24 14:00 06/24/24 13:53 DC Epoetin Rylan-epbx (Retacrit) 10,000 unit QWEEK SQ 06/24/24 14:00 07/24/24 13:59 06/24/24 14:37 10,000 UNIT Famotidine (Pepcid 20mg Vial) 20 mg Q48H IV 06/17/24 01:00 07/17/24 00:59 06/22/24 23:18 20 MG Folic Acid (FOLic ACID 1 MG TABLET) 1 mg DAILY PO 06/25/24 09:00 07/25/24 08:59 Furosemide (LASix 40MG VIAL) 40 mg Q8H IV 06/19/24 18:30 06/20/24 18:31 DC 06/20/24 18:54 40 MG Glucagon (Glucagon 1mg Kit) 1 mg AD PRN IM HYPOGLYCEMIA PROTOCOL 06/17/24 01:00 06/17/24 01:01 DC Glucagon (Glucagon 1mg Kit) 1 mg AD PRN IM HYPOGLYCEMIA PROTOCOL 06/17/24 01:00 07/17/24 00:59 Hydralazine HCl ([id number] TAB) 25 mg TID PO 06/22/24 09:00 07/22/24 08:59 06/24/24 14:37 25 MG Hydrocortisone Sodium Succinate (Solu-corTEF 100MG) 50 mg ONCE@1930 IV 06/22/24 19:30 06/22/24 22:30 DC 06/22/24 19:59 50 MG Hydrocortisone Sodium Succinate (Solu-corTEF 100MG) 50 mg Q8H IV 06/18/24 11:30 06/22/24 15:46 DC 06/22/24 03:12 50 MG Hydrocortisone Sodium Succinate (Solu-corTEF 100MG) 50 mg Q8H6 IV 06/23/24 06:00 07/23/24 05:59 06/24/24 14:36 50 MG Hydromorphone HCl (DiLAUDid 0.5MG INJ) 0.5 mg Q4H PRN IVP SEVERE PAIN (7-10) 06/20/24 13:00 06/25/24 12:59 06/21/24 23:50 0.5 MG Insulin Human Regular (humuLIN R 100 UNIT/ML 3ML) 10 unit ONCE STAT IV 06/17/24 04:05 06/17/24 04:12 DC 06/17/24 04:28 10 UNIT Insulin Human Regular (humuLIN R 100 UNIT/ML 3ML) INSULIN SLIDING SCAL... ACHS SQ 06/17/24 07:30 07/17/24 07:29 06/24/24 12:43 2 UNIT Lactated Ringer's 1,000 ml @ 130 mls/hr Q7H42M IV 06/21/24 09:30 07/21/24 09:29 06/24/24 14:37 130 MLS/HR Leptospermum [facility] ([facility]) 1 appl DAILY TP 06/19/24 09:00 07/19/24 08:59 06/24/24 09:36 1 APPL Magnesium Sulfate 50 ml @ 0 mls/hr PROTOCOL PRN IV MAGNESIUM PROTOCOL 06/23/24 11:30 07/23/24 11:29 06/24/24 05:57 25 MLS/HR Metoprolol Tartrate (loprESSOR) 25 mg BID PO 06/24/24 14:30 07/24/24 14:29 06/24/24 14:37 25 MG Metronidazole/ Sodium Chloride (flaGYL) 500 mg Q8H IV 06/17/24 05:00 06/27/24 04:59 06/24/24 12:38 500 MG Micafungin Sodium 100 ml @ 100 mls/hr Q24H IV 06/18/24 00:00 07/18/24 00:00 06/23/24 23:27 100 MLS/HR Norepinephrine 250 ml @ 0 mls/hr PROTOCOL IV 06/16/24 22:00 06/22/24 07:20 DC 06/17/24 05:33 24.5 MLS/HR Ondansetron HCl (zoFRAN 4MG INJ) 4 mg Q6H PRN IVP NAUSEA/VOMITING 06/23/24 20:30 07/23/24 20:29 06/23/24 20:10 4 MG Pharmacy Profile Note (Lace Assessment) 1 each AD MISC 06/19/24 15:30 06/20/24 12:49 DC Pharmacy Profile Note (Pharmacy Communication) 1 each ONCE MISC 06/17/24 23:00 06/19/24 07:13 DC 06/17/24 23:31 1 EACH Pharmacy Profile Note (Pharmacy Communication) 1 each ONCE MISC 06/22/24 16:30 06/23/24 07:22 DC Phenylephrine HCl 100 mg/Sodium Chloride 250 ml @ 0 mls/hr AD PRN IV TITRATE 06/17/24 10:30 06/22/24 07:20 DC 06/18/24 05:48 27 MLS/HR Piperacillin Sod/ Tazobactam Sod (Zosyn 3.375gm+NS 50ml) 3.375 gm Q12H IV 06/16/24 21:30 06/17/24 01:03 DC 06/16/24 21:42 3.375 GM Piperacillin Sod/ Tazobactam Sod (Zosyn 3.375gm+NS 50ml) 3.375 gm Q12H IVPB 06/17/24 01:00 06/17/24 04:00 DC 06/17/24 02:54 3.375 GM Potassium Chloride 100 ml @ 100 mls/hr AD PRN IV POTASSIUM PROTOCOL 06/21/24 08:00 07/21/24 07:59 06/24/24 05:57 100 MLS/HR Potassium Chloride 100 ml @ 100 mls/hr AD PRN IV POTASSIUM PROTOCOL 06/23/24 11:30 07/23/24 11:29 Potassium Chloride (K-Dur/Klor-Con 20meq) 20 meq AD PRN PO POTASSIUM PROTOCOL 06/23/24 11:30 07/23/24 11:29 Potassium Chloride (K-Dur/Klor-Con 20meq) 40 meq BID PO 06/22/24 09:00 06/22/24 21:01 DC 06/22/24 19:54 40 MEQ Potassium Chloride (KCl 10% Elixir 20meq/15ml) 20 meq AD PRN PO POTASSIUM PROTOCOL 06/23/24 11:30 07/23/24 11:29 Sodium Bicarbonate / Dextrose 1,000 ml @ 0 mls/hr Q0M IVP 06/17/24 05:00 06/17/24 04:58 DC Sodium Bicarbonate 150 meq/Dextrose 1,150 ml @ 50 mls/hr Q23H IVP 06/18/24 08:00 06/19/24 12:24 DC 06/18/24 20:23 100 MLS/HR Sodium Bicarbonate 150 meq/Dextrose 1,150 ml @ 100 mls/hr [id number] IVP 06/17/24 05:00 06/18/24 04:44 DC 06/17/24 21:00 100 MLS/HR Sodium Polystyrene Sulfonate (kayEXALate 15 GM/60 ML) 15 gm Q2H PO 06/16/24 21:30 06/16/24 23:31 DC 06/16/24 22:21 15 GM Sodium Chloride 1,000 ml @ 150 mls/hr Q6H40M IV 06/16/24 23:00 06/17/24 09:10 DC 06/17/24 05:15 150 MLS/HR Sodium Chloride (NS 50ml) 50 ml AD IV 06/17/24 01:00 06/17/24 01:05 DC Thiamine HCl (Vitamin B-1) 100 mg DAILY IVP 06/17/24 09:00 07/17/24 08:59 06/24/24 09:34 100 MG Tigecycline 100 mg/Sodium Chloride 100 ml @ 200 mls/hr ONCE IV 06/22/24 16:30 06/23/24 07:21 DC 06/22/24 18:51 200 MLS/HR Tigecycline 50 mg/ Sodium Chloride 100 ml @ 200 mls/hr BID@0600,1800 IV 06/23/24 06:00 06/30/24 05:59 06/24/24 05:04 200 MLS/HR Vancomycin HCl (Vancomycin 750mg) 750 mg Q96H IVPB 06/20/24 22:00 06/17/24 14:00 DC Vancomycin HCl (Vancomycin Protocol) 1 each AD IV 06/17/24 01:30 06/17/24 14:01 DC Vitamin B Complex/ Vit C/Folic Acid (Nephrovite Tablet) 1 cap DAILY PO 06/24/24 09:00 07/24/24 08:59 06/24/24 09:34 1 CAP DIAGNOSTICS / RADIOLOGY: [ ] ASSESSMENT: Severe metabolic acidosis, resolved POA Septic shock requiring vasopressor, resolved POA Fungemia Acute on chronic renal failure POA Hyperkalemia POA Chronic anemia POA Acute thrombocytopenia POA Failure to thrive POA Acute encephalopathy, improving DM2 last A1c unknown Dyslipidemia Peripheral artery disease Osteomyelitis with recent amputation to both feet POA Hypertension PLAN: Patient remains admitted to the intensive care unit 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 Continue to follow Nephrology input recommendation terms of renal replacement therapy Start LR @ 130 cc/hr Start clear liquid diet Continue furosemide GI consulted, appreciate recommendations Hematology consulted, appreciate recommendations Anemia workup. Transfuse as needed. Hematology consultation requested per Follow critical care input and recommendation Disposition: Pending placement, antibiotics AL CARDONA MD Jun 24, 2024 16:26
--- NOTE | 2024-06-24 16:35 | NUR ---
PT held patient transferred to 2nd floor, PT to follow as patient becomes stable.
--- NOTE | 2024-06-24 19:58 | PN ---
INFECTIOUS DISEASE PROGRESS NOTE Date of Service: Jun 24, 2024 2 SUBJECTIVE: Patient was seen and examined at bedside in room 308. Patient is awake, alert and oriented. During visit with patient today patient was on AFib RVR and being transferred to PCCU for amiodarone drip. Per report patient refused the colonoscopy procedure that was scheduled for today. No fever, temperature is 97.3�. We will continue on Tygacil IV, micafungin IV and metronidazole. Patient will need 2-3 weeks of IV antibiotics on discharge. We will continue to follow patient's care. PHYSICAL EXAM EYES: Anicteric. Pupils equal and reactive. HENT: No oral thrush seen, moist Oral mucosa. NECK: Supple, no JVD or thyromegaly. LUNGS: Good air entry. No rales, no rhonchi. CARDIOVASCULAR: S1, S2 regular. No murmur heard. ABDOMEN: Soft, non tender, bowel sounds present, no organomegaly. CENTRAL NERVOUS SYSTEM: Awake, alert, oriented x 2. SKIN: No rashes, no swelling. LYMPHATICS: No peripheral lymphadenopathy. MUSCULOSKELETAL: No joint swelling, erythema or tenderness. EXTREMITIES: No cyanosis or clubbing. 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 BACK: No deformity, no pressure ulcer. GENITOURINARY: No dysuria or hematuria. Vital Sign (Last 12 Hours) 06/24/24 06/24/24 06/24/24 06/24/24 08:00 09:34 09:36 12:00 Temp 97.5 97.3 Pulse 98 98 104 Resp 16 16 B/P (MAP) 147/76 147/76 140/84 Pulse Ox 97 97 98 O2 Delivery Room Air Nasal Cannula* Room Air O2 Flow Rate 2 FiO2 28 06/24/24 06/24/24 06/24/24 14:48 16:00 19:14 Temp 97.9 97.9 Pulse 75 85 Resp 18 18 B/P (MAP) 136/64 118/72 Pulse Ox 100 95 94 O2 Delivery Nasal Cannula* Nasal Cannula Nasal Cannula O2 Flow Rate 2 2.0 2.0 FiO2 28 LABS: Laboratory: Test 06/24/24 19:37 06/24/24 05:00 06/23/24 04:37 Range/Units Whole Blood Glucose 228 H 70-110 MG/DL Bedside Glucose Comment Notified Nurse White Blood Count 9.8 4.8-10.8 K/uL Red Blood Count 3.06 L 4.50-6.20 MIL/uL Hemoglobin 9.3 L 14.0-18.0 g/dL Hematocrit 26.6 L 42-54 % Mean Corpuscular Volume 86.9 79-99 fL Mean Corpuscular Hemoglobin 30.4 27.0-33.0 pg Mean Corpuscular Hemoglobin Concent 35.0 32.0-36.0 g/dL Red Cell Distribution Width 14.9 11.0-15.5 % Platelet Count 87 L 130-400 K/uL Mean Platelet Volume 10.7 H 7.5-10.5 fL Immature Granulocyte % (Auto) 1.7 H 0-1 % Neutrophils (%) (Auto) 81.9 H 40.0-77.0 % Lymphocytes (%) (Auto) 7.4 L 21.0-51.0 % Monocytes (%) (Auto) 8.8 3.0-13.0 % Eosinophils (%) (Auto) 0.0 0.0-8.0 % Basophils (%) (Auto) 0.2 0.0-5.0 % Neutrophils # (Auto) 8.1 H 1.8-7.7 K/uL Lymphocytes # (Auto) 0.7 L 1.0-4.8 K/uL Monocytes # (Auto) 0.9 0.1-1.0 K/uL Eosinophils # (Auto) 0.00 0.00-0.70 K/uL Basophils # (Auto) 0.02 0.00-0.20 K/uL Absolute Immature Granulocyte (auto 0.17 0-1 K/uL Nucleated Red Blood Cells 0.0 0.0-0.19 % White Cell Morphology Comment See comments Sodium Level 141 136-145 mmol/L Potassium Level 3.4 L 3.5-5.1 mmol/L Chloride Level 99 L 101-111 mmol/L Carbon Dioxide Level 26 21-32 mmol/L Blood Urea Nitrogen 110 *H 7-18 mg/dL Creatinine 6.4 H 0.5-1.3 mg/dL Glomerular Filtration Rate Calc 9 >90 mL/min Random Glucose 206 H 70-105 mg/dL Total Calcium 6.6 L 8.5-10.1 mg/dL Phosphorus Level 5.3 H 2.5-4.9 mg/dL Magnesium Level 1.70 L 1.80-2.40 mg/dL Vancomycin Level 5.4 L 20.0-30.0 mcg/mL Vitamin B12 Level 854 193-986 pg/mL Folic Acid (LAB) 6.10 2-20 ng/mL ASSESSMENT: Fungemia. 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 Septic shock, resolving. Anemia requiring blood transfusion, status post EGD. Acute renal failure. Thrombocytopenia. PLAN: Continue tigecycline IV. Continue micafungin. Continue metronidazole. Continue wound care. 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 Patient refused the colonoscopy procedure that was scheduled for today. Avoid nephrotoxic medications. Case management working on placement, patient will need 2-3 weeks of IV antibiotics. This case was reviewed and discussed with my supervising physician and the above assessment and plan was formulated and agreed upon. ATTESTATION BY PHYSICIAN I have seen and examined the patient. I reviewed the documentation, medical decision making, and treatment plan as noted by the mid-level provider above. I agree with the findings and plan of care. CECIL ROY MD, [facility] Jun 24, 2024 19:58
[2024-06-24] MEDS: AMIOdarone 900MG VIAL 540 MG in DEXTROSE 5%-WATER 300 ML IV SCH (20:42)
--- NOTE | 2024-06-24 20:50 | PN ---
69-year-old male with past medical history of diabetes mellitus type 2, hypertension, ESRD (baseline Cr ~2.3, now up to 7.2�9.9, GFR ~5�8), osteomyelitis with history of multiple toe amputations, recent septic shock (now off vasopressors), and ongoing broad-spectrum antibiotic therapy. Patient is a poor historian and resides in a nursing facility. Per family, he was doing relatively well until ~1 week ago when he had decreased oral intake and developed progressive lethargy. He had a recent COVID infection three weeks ago, now resolved. He presented with acute encephalopathy, hyperkalemia, metabolic acidosis, and severe thrombocytopenia (initially 32K, now improving to 78K). Notable labs include chronic normocytic anemia (Hgb trending 6.1�9.0), thrombocytopenia (platelets aren 28K, now 78K), and pancytopenia picture. Peripheral smear shows hypochromia, rouleaux formation, hypersegmented neutrophils, no schistocytes or helmet cells. Reticulocyte count is low (0.18%), immature reticulocytes elevated (2%). Iron saturation is high (79.7%), with low TIBC (94), suggesting anemia of chronic disease or myelodysplasia. Manual platelet count is ~100K PMH: osteomyelitis S/P left 4 &5 th toe and right 3rd toe amputation, anemia, chronic pain,diabetes and hypertension PSH: Left 4th and 5th toe amputation, right great and 3rd toe amputation SH: Patient coming from [facility]. Patient denies smoking alcohol and recreational drug use FH: [ Noncontributory ] ALLERGIES: Coded Allergies: No Known Drug Allergies (Unverified Allergy, Unknown, 05/05/24) CURRENT MEDS: Current Medications Medications (Trade) Dose Ordered Sig/Roderick Route PRN Reason Start Time Stop Time Status Last Admin Hydrocortisone Sodium Succinate (Solu-corTEF 100MG) 50 mg Q8H6 IV 06/23/24 06:00 07/23/24 05:59 06/23/24 13:47 Tigecycline 50 mg/ Sodium Chloride 100 ml @ 200 mls/hr BID@0600,1800 IV 06/23/24 06:00 06/30/24 05:59 06/23/24 05:13 Magnesium Sulfate 50 ml @ 0 mls/hr PROTOCOL PRN IV MAGNESIUM PROTOCOL 06/23/24 11:30 07/23/24 11:29 06/23/24 14:48 Potassium Chloride 100 ml @ 100 mls/hr AD PRN IV POTASSIUM PROTOCOL 06/23/24 11:30 07/23/24 11:29 Potassium Chloride (KCl 10% Elixir 20meq/15ml) 20 meq AD PRN PO POTASSIUM PROTOCOL 06/23/24 11:30 07/23/24 11:29 Potassium Chloride (K-Dur/Klor-Con 20meq) 20 meq AD PRN PO POTASSIUM PROTOCOL 06/23/24 11:30 07/23/24 11:29 Vitamin B Complex/ Vit C/Folic Acid (Nephrovite Tablet) 1 cap DAILY PO 06/24/24 09:00 07/24/24 08:59 PHYSICAL EXAM GENERAL: No acute respiratory distress. VITAL SIGNS: Reviewed and stable. HEENT: The sclerae are clear. The pupils are equal and reactive to light. The oropharyngeal cavity is within normal limits. NECK: Supple without lymphadenopathy. CHEST: Lung is clear bilaterally there is no wheezing or crackles. HEART: Sounds are regular and rhythmic. ABDOMEN: No guarding or rigidity. Bowel sounds positive. NEUROLOGICAL: The patient is alert and oriented. No focal deficits. Patient with generalized weakness. LYMPH NODES: There is no lymphadenopathy could be felt in the neck, supraclavicular, or axillary. IMPRESSION 1. Normocytic normochromic anemia 2. Acute on chronic renal failure with the patient did not start dialysis yet 3. Thrombocytopenia 4. History of hypertension 5. Diabetes mellitus 6. Lower extremity osteomyelitis Plan 1. Peripheral blood smear showed rouleaux phenomena. SPEP and free light chain was ordered. If there is monoclonal protein we will do bone marrow biopsy. 2. Continue care as per nephrology. It seems there is no plan for hemodialysis at this time. 3. This patient could benefit from Procrit 10,000 units subcu for now maybe Saturday and Saturday and Saturday until hemoglobin is above 10. 4. There was a plan to do colonoscopy but the patient is refusing. 5. This patient have some sign of myelodysplastic syndrome. Maybe this patient will need bone marrow biopsy to be done. Will try to do it as outpatient. 6. If this patient discharged to follow-up with me in 2 weeks Vitals/Labs Vital Signs Date Time Temp Pulse Resp B/P (MAP) Pulse Ox O2 Delivery O2 Flow Rate FiO2 06/24/24 19:14 97.9 85 18 118/72 94 Nasal Cannula 2.0 06/24/24 14:48 28 Laboratory Tests 06/24/24 05:00 Medications Current Medications Sodium Chloride 1,000 ml @ 0 mls/hr ONCE ONCE IV Last administered on 06/16/24 21:22; Start 06/16/24 at 21:30; Stop 06/16/24 at 21:31; Status DC Piperacillin Sod/ Tazobactam Sod 3.375 gm Q12H IV Last administered on 06/16/24at 21:42; Start 06/16/24 at 21:30; Stop 06/17/24 at 01:03; Status DC Vancomycin HCl 1 gm ONCE ONCE IV; Start 06/16/24 at 21:30; Stop 06/16/24 at 21:34; Status DC Enoxaparin Sodium 80 mg ONCE ONCE SQ Last administered on 06/16/24at 23:15; Start 06/16/24 at 21:30; Stop 06/16/24 at 21:46; Status DC Calcium Gluconate 1 gm/Sodium Chloride 110 ml @ 110 mls/hr ONCE ONCE IV Last administered on 06/16/24at 22:03; Start 06/16/24 at 21:30; Stop 06/16/24 at 22:29; Status DC Albuterol Sulfate 10 mg ONCE ONCE IH Last administered on 06/16/24at 21:53; Start 06/16/24 at 21:30; Stop 06/16/24 at 21:35; Status DC Sodium Polystyrene Sulfonate 15 gm Q2H PO Last administered on 06/16/24at 22:21; Start 06/16/24 at 21:30; Stop 06/16/24 at 23:31; Status DC Albuterol Sulfate 2.5 mg STK-MED ONCE IH; Start 06/16/24 at 21:34; Stop 06/16/24 at 21:34; Status DC Norepinephrine 250 ml @ 0 mls/hr PROTOCOL IV Last administered on 06/17/24at 05:33; Start 06/16/24 at 22:00; Stop 06/22/24 at 07:20; Status DC Vancomycin HCl 250 ml @ 125 mls/hr ONCE ONCE IV Last administered on 06/16/24at 22:21; Start 06/16/24 at 22:00; Stop 06/16/24 at 23:59; Status DC Sodium Zirconium Cyclosilicate 10 gm ONCE ONCE PO Last administered on 06/16/24at 23:13; Start 06/16/24 at 23:00; Stop 06/16/24 at 23:04; Status DC Sodium Chloride 1,000 ml @ 150 mls/hr Q6H40M IV Last administered on 06/17/24at 05:15; Start 06/16/24 at 23:00; Stop 06/17/24 at 09:10; Status DC Thiamine HCl 100 mg DAILY IVP Last administered on 06/24/24at 09:34; Start 06/17/24 at 09:00; Stop 07/17/24 at 08:59 Famotidine 20 mg Q48H IV Last administered on 06/22/24at 23:18; Start 06/17/24 at 01:00; Stop 07/17/24 at 00:59 Insulin Human Regular INSULIN SLIDING SCAL... ACHS SQ Last administered on 06/24/24at 20:33; Start 06/17/24 at 07:30; Stop 07/17/24 at 07:29 Dextrose 50 ml AD PRN IV; Start 06/17/24 at 01:00; Stop 07/17/24 at 00:59 Glucagon 1 mg AD PRN IM; Start 06/17/24 at 01:00; Stop 06/17/24 at 01:01; Status DC Piperacillin Sod/ Tazobactam Sod 3.375 gm Q12H IVPB Last administered on 06/17/24at 02:54; Start 06/17/24 at 01:00; Stop 06/17/24 at 04:00; Status DC Sodium Chloride 50 ml AD IV; Start 06/17/24 at 01:00; Stop 06/17/24 at 01:05; Status DC Vancomycin HCl 1.5 gm ONCE ONCE IV; Start 06/17/24 at 01:00; Stop 06/17/24 at 01:27; Status DC Dextrose 50 ml AD PRN IV; Start 06/17/24 at 01:00; Stop 06/17/24 at 01:01; Status DC Glucagon 1 mg AD PRN IM; Start 06/17/24 at 01:00; Stop 07/17/24 at 00:59 Vancomycin HCl 1 each AD IV; Start 06/17/24 at 01:30; Stop 06/17/24 at 14:01; Status DC Vancomycin HCl 750 mg Q96H IVPB; Start 06/20/24 at 22:00; Stop 06/17/24 at 14:00; Status DC Sodium Chloride 1,368 ml @ 456 mls/hr ONCE ONCE IV Last administered on 06/17/24at 02:55; Start 06/17/24 at 02:00; Stop 06/17/24 at 04:59; Status DC Sodium Bicarbonate 100 meq ONCE ONCE IV Last administered on 06/17/24at 02:54; Start 06/17/24 at 02:00; Stop 06/17/24 at 02:02; Status DC Cefepime HCl 0.25 gm Q24H IVPB Last administered on 06/17/24at 04:58; Start 06/17/24 at 04:00; Stop 06/18/24 at 04:06; Status DC Insulin Human Regular 10 unit ONCE STAT IV Last administered on 06/17/24at 04:28; Start 06/17/24 at 04:05; Stop 06/17/24 at 04:12; Status DC Dextrose 50 ml ONCE STAT IV Last administered on 06/17/24at 04:21; Start 06/17/24 at 04:05; Stop 06/17/24 at 04:12; Status DC Calcium Gluconate 1 gm AD STAT IV Last administered on 06/17/24at 04:21; Start 06/17/24 at 04:05; Stop 06/17/24 at 04:12; Status DC Albuterol Sulfate 10 mg ONCE STAT IH Last administered on 06/17/24at 04:31; Start 06/17/24 at 04:05; Stop 06/17/24 at 04:12; Status DC Metronidazole/ Sodium Chloride 500 mg Q8H IV Last administered on 06/24/24at 20:38; Start 06/17/24 at 05:00; Stop 06/27/24 at 04:59 Sodium Bicarbonate 50 meq ONCE ONCE IV Last administered on 06/17/24at 04:58; Start 06/17/24 at 05:00; Stop 06/17/24 at 05:01; Status DC Sodium Bicarbonate / Dextrose 1,000 ml @ 0 mls/hr Q0M IVP; Start 06/17/24 at 05:00; Stop 06/17/24 at 04:58; Status DC Sodium Bicarbonate 150 meq/Dextrose 1,150 ml @ 100 mls/hr [id number] IVP Last administered on 06/17/24at 21:00; Start 06/17/24 at 05:00; Stop 06/18/24 at 04:44; Status DC Sodium Bicarbonate 100 meq ONCE ONCE IV Last administered on 06/17/24at 10:19; Start 06/17/24 at 10:00; Stop 06/17/24 at 10:01; Status DC Phenylephrine HCl 100 mg/Sodium Chloride 250 ml @ 0 mls/hr AD PRN IV Last administered on 06/18/24at 05:48; Start 06/17/24 at 10:30; Stop 06/22/24 at 07:20; Status DC Magnesium Sulfate 50 ml @ As Directed STK-MED ONCE IV Last administered on 06/17/24at 16:03; Start 06/17/24 at 15:59; Stop 06/17/24 at 16:00; Status DC Pharmacy Profile Note 1 each ONCE MISC Last administered on 06/17/24at 23:31; Start 06/17/24 at 23:00; Stop 06/19/24 at 07:13; Status DC Micafungin Sodium 100 ml @ 100 mls/hr Q24H IV Last administered on 06/23/24at 23:27; Start 06/18/24 at 00:00; Stop 07/18/24 at 00:00 Cefepime HCl 0.25 gm/Sodium Chloride 50 ml @ 100 mls/hr Q24H IVPB Last administered on 06/19/24at 05:26; Start 06/18/24 at 04:30; Stop 06/19/24 at 10:58; Status DC Sodium Bicarbonate 150 meq/Dextrose 1,150 ml @ 50 mls/hr Q23H IVP Last administered on 06/18/24at 20:23; Start 06/18/24 at 08:00; Stop 06/19/24 at 12:24; Status DC Hydrocortisone Sodium Succinate 50 mg Q8H IV Last administered on 06/22/24at 03:12; Start 06/18/24 at 11:30; Stop 06/22/24 at 15:46; Status DC Leptospermum Honey 1 appl DAILY TP Last administered on 06/24/24at 09:36; Start 06/19/24 at 09:00; Stop 07/19/24 at 08:59 Furosemide 40 mg ONCE ONCE IV Last administered on 06/18/24at 21:50; Start 06/18/24 at 20:30; Stop 06/18/24 at 20:34; Status DC Cefepime HCl 1 gm Q24H IVPB Last administered on 06/22/24at 03:12; Start 06/20/24 at 05:00; Stop 06/22/24 at 16:09; Status DC Furosemide 60 mg ONCE ONCE IV Last administered on 06/19/24at 11:55; Start 06/19/24 at 11:30; Stop 06/19/24 at 11:31; Status DC Potassium Chloride 100 ml @ 50 mls/hr ONCE ONCE IV Last administered on 06/19/24at 13:56; Start 06/19/24 at 12:30; Stop 06/19/24 at 14:29; Status DC Epoetin Rylan-epbx 10,000 unit ONCE ONCE SQ Last administered on 06/19/24at 16:45; Start 06/19/24 at 16:00; Stop 06/19/24 at 16:01; Status DC Pharmacy Profile Note 1 each AD MISC; Start 06/19/24 at 15:30; Stop 06/20/24 at 12:49; Status DC Furosemide 40 mg Q8H IV Last administered on 06/20/24at 18:54; Start 06/19/24 at 18:30; Stop 06/20/24 at 18:31; Status DC Potassium Chloride 100 ml @ As Directed STK-MED ONCE IV Last administered on 06/20/24at 12:17; Start 06/20/24 at 12:11; Stop 06/20/24 at 12:11; Status DC Hydromorphone HCl 0.5 mg Q4H PRN IVP Last administered on 06/21/24at 23:50; Start 06/20/24 at 13:00; Stop 06/25/24 at 12:59 Hydromorphone HCl 0.5 mg STK-MED ONCE .ROUTE; Start 06/20/24 at 12:48; Stop 06/20/24 at 12:52; Status DC Potassium Chloride 100 ml @ 100 mls/hr AD PRN IV Last administered on 06/24/24at 05:57; Start 06/21/24 at 08:00; Stop 07/21/24 at 07:59 Lactated Ringer's 1,000 ml @ 130 mls/hr Q7H42M IV Last administered on 06/24/24at 14:37; Start 06/21/24 at 09:30; Stop 07/21/24 at 09:29 Amlodipine Besylate 5 mg BID PO Last administered on 06/24/24at 20:38; Start 06/22/24 at 09:00; Stop 07/22/24 at 08:59 Hydralazine HCl 25 mg TID PO Last administered on 06/24/24at 20:38; Start 06/22/24 at 09:00; Stop 07/22/24 at 08:59 Potassium Chloride 40 meq BID PO Last administered on 06/22/24at 19:54; Start 06/22/24 at 09:00; Stop 06/22/24 at 21:01; Status DC Hydrocortisone Sodium Succinate 50 mg Q8H6 IV Last administered on 06/24/24at 14:36; Start 06/23/24 at 06:00; Stop 07/23/24 at 05:59 Hydrocortisone Sodium Succinate 50 mg ONCE@1930 IV Last administered on 06/22/24at 19:59; Start 06/22/24 at 19:30; Stop 06/22/24 at 22:30; Status DC Pharmacy Profile Note 1 each ONCE MISC; Start 06/22/24 at 16:30; Stop 06/23/24 at 07:22; Status DC Tigecycline 100 mg/Sodium Chloride 100 ml @ 200 mls/hr ONCE IV Last administered on 06/22/24at 18:51; Start 06/22/24 at 16:30; Stop 06/23/24 at 07:21; Status DC Tigecycline 50 mg/ Sodium Chloride 100 ml @ 200 mls/hr BID@0600,1800 IV Last administered on 06/24/24at 19:57; Start 06/23/24 at 06:00; Stop 06/30/24 at 05:59 Propofol 200 mg STK-MED ONCE IV; Start 06/23/24 at 10:49; Stop 06/23/24 at 10:49; Status DC Propofol 200 mg STK-MED ONCE IV; Start 06/23/24 at 10:49; Stop 06/23/24 at 10:49; Status DC Magnesium Sulfate 50 ml @ 0 mls/hr PROTOCOL PRN IV Last administered on 06/24/24at 05:57; Start 06/23/24 at 11:30; Stop 07/23/24 at 11:29 Potassium Chloride 100 ml @ 100 mls/hr AD PRN IV; Start 06/23/24 at 11:30; Stop 07/23/24 at 11:29 Potassium Chloride 20 meq AD PRN PO; Start 06/23/24 at 11:30; Stop 07/23/24 at 11:29 Potassium Chloride 20 meq AD PRN PO; Start 06/23/24 at 11:30; Stop 07/23/24 at 11:29 Polyethylene Glycol/ Electrolytes 4,000 ml ONCE ONCE PO Last administered on 06/23/24at 12:55; Start 06/23/24 at 14:00; Stop 06/23/24 at 14:01; Status DC Vitamin B Complex/ Vit C/Folic Acid 1 cap DAILY PO Last administered on 06/24/24at 09:34; Start 06/24/24 at 09:00; Stop 07/24/24 at 08:59 Ondansetron HCl 4 mg Q6H PRN IVP Last administered on 06/23/24at 20:10; Start 06/23/24 at 20:30; Stop 07/23/24 at 20:29 Metoprolol Tartrate 5 mg ONCE ONCE IV Last administered on 06/24/24at 09:36; Start 06/24/24 at 09:30; Stop 06/24/24 at 09:31; Status DC Folic Acid 1 mg DAILY PO; Start 06/25/24 at 09:00; Stop 07/25/24 at 08:59 Epoetin Rylan-epbx 10,000 unit [id number] SQ; Start 06/24/24 at 14:00; Stop 06/24/24 at 13:53; Status DC Epoetin Rylan-epbx 10,000 unit QWEEK SQ Last administered on 06/24/24at 14:37; Start 06/24/24 at 14:00; Stop 07/24/24 at 13:59 Amiodarone HCl 360 mg/Dextrose 200 ml @ 0 mls/hr PROTOCOL IV Last administered on 06/24/24at 15:51; Start 06/24/24 at 14:30; Stop 07/24/24 at 14:29 Amiodarone HCl 540 mg/Dextrose 300 ml @ 0 mls/hr PROTOCOL IV; Start 06/24/24 at 21:00; Stop 07/24/24 at 20:59 Apixaban 5 mg BID PO Last administered on 06/24/24at 20:38; Start 06/24/24 at 14:30; Stop 07/24/24 at 14:29 Metoprolol Tartrate 25 mg BID PO Last administered on 06/24/24at 20:38; Start 06/24/24 at 14:30; Stop 07/24/24 at 14:29 Amiodarone HCL/ Dextrose 100 ml @ 0 mls/hr ONCE ONCE IV Last administered on 06/24/24at 15:34; Start 06/24/24 at 16:00; Stop 06/24/24 at 16:01; Status DC TOYA MANSFIELD MD Jun 24, 2024 20:50
--- NOTE | 2024-06-24 23:08 | PN ---
[facility] PROGRESS NOTE Date Patient Seen: Jun 24, 2024 Time of Visit: 23:05 Supervising Physician: BRISEIDA FAULKNER MD Primary Care Physician: [None-recently relocated from [place]] Outpatient Specialists: [ ] Inpatient Consults: [facility] team, nephro: Dr. Dowd, cardio: Dr. Bae] PROBLEM LIST: Septic shock, requiring pressor-POA Acute encephalopathy; likely multifactorial infectious, uremic and toxic metabolic-POA Severe metabolic acidosis-POA Acute renal failure, severe-POA Uremia-POA Severe hyperkalemia-POA Resolved Thrombocytopenia-POA Severe lactic acidosis-POA NSTEMI, rule-out demand ischemia vs true cardiac etiology-POA INTERVAL HISTORY: Patient seen and evaluated, clinical chart reviewed Patient transferred from MICU Afebril, no seizures, no distress Remains on O2 Very weak Severely deconditioned poor appetite no nausea or vomiting REVIEW OF SYSTEMS: Unable to perform 12 point ROS due to patient's encephalopathy. PHYSICAL EXAM: GENERAL: Awake, Alert. Generally weak HEENT: Normocephalic, atraumatic, dry mucosa NECK: Supple, no JVD, trachea midline LUNGS: Clear breath sounds bilaterally. No wheezes HEART: Regular rate and rhythm. Normal S1 and S2, positive murmurs , tachycardic ABD: Abdomen soft, nontender. Bowel sounds present EXT: No clubbing, cyanosis, or edema, bilateral feet wound with toe amputations with dressing CDI NEURO: Deferred Vital Signs (last 8hr) Date Time Temp Pulse Resp B/P (MAP) Pulse Ox O2 Delivery O2 Flow Rate FiO2 06/24/24 19:14 97.9 85 18 118/72 94 Nasal Cannula 2.0 06/24/24 16:00 97.9 75 18 136/64 95 Nasal Cannula 2.0 LABS: Hematology Labs: Test 06/24/24 05:00 Range/Units White Blood Count 9.8 4.8-10.8 K/uL Red Blood Count 3.06 L 4.50-6.20 MIL/uL Hemoglobin 9.3 L 14.0-18.0 g/dL Hematocrit 26.6 L 42-54 % Mean Corpuscular Volume 86.9 79-99 fL Mean Corpuscular Hemoglobin 30.4 27.0-33.0 pg Mean Corpuscular Hemoglobin Concent 35.0 32.0-36.0 g/dL Red Cell Distribution Width 14.9 11.0-15.5 % Platelet Count 87 L 130-400 K/uL Mean Platelet Volume 10.7 H 7.5-10.5 fL Immature Granulocyte % (Auto) 1.7 H 0-1 % Neutrophils (%) (Auto) 81.9 H 40.0-77.0 % Lymphocytes (%) (Auto) 7.4 L 21.0-51.0 % Monocytes (%) (Auto) 8.8 3.0-13.0 % Eosinophils (%) (Auto) 0.0 0.0-8.0 % Basophils (%) (Auto) 0.2 0.0-5.0 % Neutrophils # (Auto) 8.1 H 1.8-7.7 K/uL Lymphocytes # (Auto) 0.7 L 1.0-4.8 K/uL Monocytes # (Auto) 0.9 0.1-1.0 K/uL Eosinophils # (Auto) 0.00 0.00-0.70 K/uL Basophils # (Auto) 0.02 0.00-0.20 K/uL Absolute Immature Granulocyte (auto 0.17 0-1 K/uL Nucleated Red Blood Cells 0.0 0.0-0.19 % White Cell Morphology Comment See comments Chemistry Labs: Test 06/24/24 19:37 06/24/24 05:00 06/23/24 04:37 Range/Units Whole Blood Glucose 228 H 70-110 MG/DL Bedside Glucose Comment Notified Nurse Sodium Level 141 136-145 mmol/L Potassium Level 3.4 L 3.5-5.1 mmol/L Chloride Level 99 L 101-111 mmol/L Carbon Dioxide Level 26 21-32 mmol/L Blood Urea Nitrogen 110 *H 7-18 mg/dL Creatinine 6.4 H 0.5-1.3 mg/dL Glomerular Filtration Rate Calc 9 >90 mL/min Random Glucose 206 H 70-105 mg/dL Total Calcium 6.6 L 8.5-10.1 mg/dL Phosphorus Level 5.3 H 2.5-4.9 mg/dL Magnesium Level 1.70 L 1.80-2.40 mg/dL Vitamin B12 Level 854 193-986 pg/mL Folic Acid (LAB) 6.10 2-20 ng/mL DIAGNOSTICS / RADIOLOGY RESULTS: [ ] PLAN Disposition as per primary case management consult for disposition continue on supplemental oxygen aspiration precautions nutritional support NEURO: Minimize central acting medications as possible. Maintain fall precautions, adequate lighting during the day PULMONARY: Supplemental 02 as needed. Maintain aspiration precautions at all times CARDIOVASCULAR: Follow hemodynamics. Vital signs per facility protocol GI & NUTRITION: Continue with nutritional support. Continue stool softeners and laxatives as needed. KIDNEYS & ELECTROLYTES: Strict monitoring of intake, output and overall fluid balance. Avoid nephrotoxic medications to the extent possible. Medications to be dosed according to renal function. Monitor electrolytes and replace as needed ENDOCRINE: Maintain blood glucose between 100-180 at all times. Hypoglycemia protocol in place INFECTIOUS DISEASE: Trend temperature, WBC and procalcitonin level Follow cultures, deescalate antibiotics as soon as possible. Panculture if new onset fever ONCOLOGY/HEMATOLOGY/COAGULATION: Monitor for s/s of bleeding Monitor hemoglobin, coagulation studies as needed SKIN: Pressure ulcer prevention per facility protocol Specialty mattress ORTHO/REHAB: Continue PT/OT Prophylaxis: Continue GI and DVT prophylaxis Code Status: Full Resuscitation Disposition: as per PCP I personally scribed for BRISEIDA FAULKNER MD ([email or web address]) on 06/24/24 at 23:08. Electronically submitted by Nathan Laureano ([email or web address]). BRISEIDA FAULKNER MD Jun 24, 2024 23:08
[2024-06-25] VITALS (8 sets, daily range): BP systolic 119–133; BP diastolic 69–81; PULSE 65–79; RESP 18–19; TEMP 97.4–98.4; O2SAT 96–100
[2024-06-25 03:44] LABS: BASOPHILS # (AUTO) 0.01 K/uL (0.00-0.20); BASOPHILS % (AUTO) 0.1 % (0.0-5.0); EOSINOPHILS # (AUTO) 0.01 K/uL (0.00-0.70); EOSINOPHILS % (AUTO) 0.1 % (0.0-8.0); HEMATOCRIT 28.2 % (42-54); IMMATURE GRANULOCYTE ABSOLUTE 0.18 K/uL (0-1); LYMPHOCYTES # (AUTO) 0.7 K/uL (1.0-4.8); LYMPHOCYTES % (AUTO) 5.9 % (21.0-51.0); MEAN CORPUSCULAR HEMOGLOBIN 29.7 pg (27.0-33.0); MEAN CORPUSCULAR HGB CONC 34.4 g/dL (32.0-36.0); MEAN CORPUSCULAR VOLUME 86.2 fL (79-99); MONOCYTES # (AUTO) 0.8 K/uL (0.1-1.0); MONOCYTES % (AUTO) 6.9 % (3.0-13.0); NEUTROPHILS # (AUTO) 9.6 K/uL (1.8-7.7); NEUTROPHILS % (AUTO) 85.4 % (40.0-77.0); NUCLEATED RED BLOOD CELLS 0.2 % (0.0-0.19); PLATELET COUNT (AUTO) 136 K/uL (130-400); RED BLOOD CELL COUNT(AUTO) 3.27 MIL/uL (4.50-6.20); RED CELL DISTRIBUTION WIDTH 14.6 % (11.0-15.5); WHITE BLOOD COUNT (AUTO) 11.3 K/uL (4.8-10.8)
[2024-06-25 04:03] LABS: ALBUMIN 2.1 g/dL (3.5-5.0); BILIRUBIN,TOTAL 0.5 mg/dL (0.2-1.0); CREATININE 5.9 mg/dL (0.5-1.3); MAGNESIUM 2.1 mg/dL (1.80-2.40); PHOSPHORUS 5.8 mg/dL (2.5-4.9); TOTAL PROTEIN, SERUM 5.9 g/dL (6.0-8.3)
[2024-06-25 04:09] LABS: POTASSIUM 2.9 mmol/L (3.5-5.1)
[2024-06-25] MEDS: FOLic ACID 1 MG TABLET PO SCH (09:32)
[2024-06-25] MEDS: PoTASSium chloRIDE 20MEQ ER 20 MEQ ERTAB PO SCH (09:33)
--- NOTE | 2024-06-25 11:37 | PN ---
GASTROENTEROLOGY PROGRESS NOTE Date of Visit: Jun 25, 2024 Time of Visit: 11:37 Events / Notes: No acute events overnight. Patient had EGD revealing mucosal changes suspicious for gastritis. Denies fever, chills, abdominal pain, N/V, hematemesis, bloating, constipation, diarrhea, melena or hematochezia. Review of Systems: CONSTITUTIONAL: No malaise or change in sensation of wellbeing. ENMT: No rhinorrhea, otorrhea, sinus pain, ear ache. CARDIOVASCULAR: No angina, palpitations, orthopnea or paroxysmal dyspnea. RESPIRATORY: No SOB. GASTROINTESTINAL: No abdominal pain, nausea, vomiting, diarrhea, hematemesis, melena or change in the patient's habitual bowel movements consistency/number. GENITOURINARY: No dysuria, hematuria or change in bladder continence. MUSCULOSKELETAL: No new muscle pain or decrease in muscular strength. No new joint swelling, redness or tenderness. SKIN: No new rash. Physical Exam: GEN: Awake, alert, oriented in person, time and place, and in no acute distress. HEENT: No sinus tenderness. Tympanic membranes were not examined. No rhinorrhea. Oral pharyngeal mucosa is pink, moist and within normal limits. Neck is supple with no cervical lymphadenopathy, thyromegaly or JVD. CHEST: Inspection, palpation and percussion of the chest were unremarkable. Lung auscultation revealed normal breath sounds bilaterally. CARDIAC: PMI is within normal limits. Heart sounds are regular. Normal S1, S2. No gallop or murmur. ABD: Soft, non-tender and not distended. No peritoneal signs on palpation. No organomegaly. Normal bowel sounds. EXT: No cyanosis or clubbing. No edema. SKIN: Intact. No rashes. JOINTS: No evidence of synovitis or acute arthritis. NEURO: Alert and oriented to name, place and person. Cranial nerve examination is unremarkable. No focal motor deficits. Normal speech. Gait is normal. Strength is normal. Vital Signs (last 8hr) Date Time Temp Pulse Resp B/P (MAP) Pulse Ox O2 Delivery O2 Flow Rate FiO2 06/25/24 08:00 97.9 69 18 133/81 95 Nasal Cannula 2.0 06/25/24 07:00 100 Nasal Cannula* 2 28 Laboratory: [ ] Laboratory: Test 06/25/24 11:18 06/25/24 03:15 06/24/24 19:37 06/24/24 05:00 Range/Units Whole Blood Glucose 242 H 70-110 MG/DL White Blood Count 11.3 H 4.8-10.8 K/uL Red Blood Count 3.27 L 4.50-6.20 MIL/uL Hemoglobin 9.7 L 14.0-18.0 g/dL Hematocrit 28.2 L 42-54 % Mean Corpuscular Volume 86.2 79-99 fL Mean Corpuscular Hemoglobin 29.7 27.0-33.0 pg Mean Corpuscular Hemoglobin Concent 34.4 32.0-36.0 g/dL Red Cell Distribution Width 14.6 11.0-15.5 % Platelet Count 136 # 130-400 K/uL Mean Platelet Volume 12.2 H 7.5-10.5 fL Immature Granulocyte % (Auto) 1.6 H 0-1 % Neutrophils (%) (Auto) 85.4 H 40.0-77.0 % Lymphocytes (%) (Auto) 5.9 L 21.0-51.0 % Monocytes (%) (Auto) 6.9 3.0-13.0 % Eosinophils (%) (Auto) 0.1 0.0-8.0 % Basophils (%) (Auto) 0.1 0.0-5.0 % Neutrophils # (Auto) 9.6 H 1.8-7.7 K/uL Lymphocytes # (Auto) 0.7 L 1.0-4.8 K/uL Monocytes # (Auto) 0.8 0.1-1.0 K/uL Eosinophils # (Auto) 0.01 0.00-0.70 K/uL Basophils # (Auto) 0.01 0.00-0.20 K/uL Absolute Immature Granulocyte (auto 0.18 0-1 K/uL Nucleated Red Blood Cells 0.2 H 0.0-0.19 % Sodium Level 138 136-145 mmol/L Potassium Level 2.9 *L 3.5-5.1 mmol/L Chloride Level 98 L 101-111 mmol/L Carbon Dioxide Level 28 21-32 mmol/L Blood Urea Nitrogen 112 *H 7-18 mg/dL Creatinine 5.9 H 0.5-1.3 mg/dL Glomerular Filtration Rate Calc 10 >90 mL/min Random Glucose 180 H 70-105 mg/dL Total Calcium 7.7 L 8.5-10.1 mg/dL Phosphorus Level 5.8 H 2.5-4.9 mg/dL Magnesium Level 2.10 1.80-2.40 mg/dL Total Bilirubin 0.5 0.2-1.0 mg/dL Aspartate Amino Transf (AST/SGOT) 21 10-37 U/L Alanine Aminotransferase (ALT/SGPT) 16 12-78 U/L Alkaline Phosphatase 124 50-136 U/L Total Protein 5.9 L 6.0-8.3 g/dL Albumin 2.1 L 3.5-5.0 g/dL Bedside Glucose Comment Notified Nurse White Cell Morphology Comment See comments Vancomycin Level 5.4 L 20.0-30.0 mcg/mL Current Medications Medications (Trade) Dose Ordered Sig/Roderick Route PRN Reason Start Time Stop Time Status Last Admin Dose Admin Albuterol Sulfate (Proventil 0.083% 2.5mg/3ml) 10 mg ONCE STAT IH 06/17/24 04:05 06/17/24 04:12 DC 06/17/24 04:31 10 MG Amiodarone HCl 360 mg/Dextrose 200 ml @ 0 mls/hr PROTOCOL IV 06/24/24 14:30 06/25/24 09:16 DC 06/24/24 15:51 33.33 MLS/HR Amiodarone HCl 540 mg/Dextrose 300 ml @ 0 mls/hr PROTOCOL IV 06/24/24 21:00 07/24/24 20:59 06/24/24 20:42 16.7 MLS/HR Amlodipine Besylate (NorvASC 5MG TAB) 5 mg BID PO 06/22/24 09:00 07/22/24 08:59 06/25/24 09:31 5 MG Apixaban (EliquIS) 5 mg BID PO 06/24/24 14:30 07/24/24 14:29 06/25/24 09:32 5 MG Calcium Gluconate (Calcium Gluc 1gm Vial) 1 gm AD STAT IV 06/17/24 04:05 06/17/24 04:12 DC 06/17/24 04:21 1 GM Cefepime HCl (MAXipime 1 GM vial) 0.25 gm Q24H IVPB 06/17/24 04:00 06/18/24 04:06 DC 06/17/24 04:58 0.25 GM Cefepime HCl (MAXipime 1 GM vial) 1 gm Q24H IVPB 06/20/24 05:00 06/22/24 16:09 DC 06/22/24 03:12 1 GM Cefepime HCl 0.25 gm/Sodium Chloride 50 ml @ 100 mls/hr Q24H IVPB 06/18/24 04:30 06/19/24 10:58 DC 06/19/24 05:26 100 MLS/HR Dextrose (D50w) 50 ml AD PRN IV HYPOGLYCEMIA PROTOCOL 06/17/24 01:00 06/17/24 01:01 DC Dextrose (D50w) 50 ml AD PRN IV HYPOGLYCEMIA PROTOCOL 06/17/24 01:00 07/17/24 00:59 Dextrose (D50w) 50 ml ONCE STAT IV 06/17/24 04:05 06/17/24 04:12 DC 06/17/24 04:21 50 ML Epoetin Rylan-epbx (Retacrit) 10,000 unit [id number] SQ 06/24/24 14:00 06/24/24 13:53 DC Epoetin Rylan-epbx (Retacrit) 10,000 unit QWEEK SQ 06/24/24 14:00 07/24/24 13:59 06/24/24 14:37 10,000 UNIT Famotidine (Pepcid 20mg Vial) 20 mg Q48H IV 06/17/24 01:00 07/17/24 00:59 06/25/24 00:55 20 MG Folic Acid (FOLic ACID 1 MG TABLET) 1 mg DAILY PO 06/25/24 09:00 07/25/24 08:59 06/25/24 09:32 1 MG Furosemide (LASix 40MG VIAL) 40 mg Q8H IV 06/19/24 18:30 06/20/24 18:31 DC 06/20/24 18:54 40 MG Glucagon (Glucagon 1mg Kit) 1 mg AD PRN IM HYPOGLYCEMIA PROTOCOL 06/17/24 01:00 06/17/24 01:01 DC Glucagon (Glucagon 1mg Kit) 1 mg AD PRN IM HYPOGLYCEMIA PROTOCOL 06/17/24 01:00 07/17/24 00:59 Hydralazine HCl ([id number] TAB) 25 mg TID PO 06/22/24 09:00 07/22/24 08:59 06/25/24 09:33 25 MG Hydrocortisone Sodium Succinate (Solu-corTEF 100MG) 50 mg ONCE@1930 IV 06/22/24 19:30 06/22/24 22:30 DC 06/22/24 19:59 50 MG Hydrocortisone Sodium Succinate (Solu-corTEF 100MG) 50 mg Q8H IV 06/18/24 11:30 06/22/24 15:46 DC 06/22/24 03:12 50 MG Hydrocortisone Sodium Succinate (Solu-corTEF 100MG) 50 mg Q8H6 IV 06/23/24 06:00 07/23/24 05:59 06/25/24 05:35 50 MG Hydromorphone HCl (DiLAUDid 0.5MG INJ) 0.5 mg Q4H PRN IVP SEVERE PAIN (7-10) 06/20/24 13:00 06/25/24 12:59 06/21/24 23:50 0.5 MG Insulin Human Regular (humuLIN R 100 UNIT/ML 3ML) 10 unit ONCE STAT IV 06/17/24 04:05 06/17/24 04:12 DC 06/17/24 04:28 10 UNIT Insulin Human Regular (humuLIN R 100 UNIT/ML 3ML) INSULIN SLIDING SCAL... ACHS SQ 06/17/24 07:30 07/17/24 07:29 06/24/24 20:33 4 UNIT Lactated Ringer's 1,000 ml @ 130 mls/hr Q7H42M IV 06/21/24 09:30 07/21/24 09:29 06/25/24 05:25 130 MLS/HR Leptospermum Honey (Medihoney) 1 appl DAILY TP 06/19/24 09:00 07/19/24 08:59 06/25/24 09:36 1 APPL Magnesium Sulfate 50 ml @ 0 mls/hr PROTOCOL PRN IV MAGNESIUM PROTOCOL 06/23/24 11:30 07/23/24 11:29 06/24/24 05:57 25 MLS/HR Metoprolol Tartrate (loprESSOR) 25 mg BID PO 06/24/24 14:30 07/24/24 14:29 06/25/24 09:31 25 MG Metronidazole/ Sodium Chloride (flaGYL) 500 mg Q8H IV 06/17/24 05:00 06/27/24 04:59 06/25/24 05:24 500 MG Micafungin Sodium 100 ml @ 100 mls/hr Q24H IV 06/18/24 00:00 07/18/24 00:00 06/25/24 00:55 100 MLS/HR Norepinephrine 250 ml @ 0 mls/hr PROTOCOL IV 06/16/24 22:00 06/22/24 07:20 DC 06/17/24 05:33 24.5 MLS/HR Ondansetron HCl (zoFRAN 4MG INJ) 4 mg Q6H PRN IVP NAUSEA/VOMITING 06/23/24 20:30 07/23/24 20:29 06/23/24 20:10 4 MG Pharmacy Profile Note (Lace Assessment) 1 each AD MISC 06/19/24 15:30 06/20/24 12:49 DC Pharmacy Profile Note (Pharmacy Communication) 1 each ONCE MISC 06/17/24 23:00 06/19/24 07:13 DC 06/17/24 23:31 1 EACH Pharmacy Profile Note (Pharmacy Communication) 1 each ONCE MISC 06/22/24 16:30 06/23/24 07:22 DC Phenylephrine HCl 100 mg/Sodium Chloride 250 ml @ 0 mls/hr AD PRN IV TITRATE 06/17/24 10:30 06/22/24 07:20 DC 06/18/24 05:48 27 MLS/HR Piperacillin Sod/ Tazobactam Sod (Zosyn 3.375gm+NS 50ml) 3.375 gm Q12H IV 06/16/24 21:30 06/17/24 01:03 DC 06/16/24 21:42 3.375 GM Piperacillin Sod/ Tazobactam Sod (Zosyn 3.375gm+NS 50ml) 3.375 gm Q12H IVPB 06/17/24 01:00 06/17/24 04:00 DC 06/17/24 02:54 3.375 GM Potassium Chloride 100 ml @ 100 mls/hr AD PRN IV POTASSIUM PROTOCOL 06/21/24 08:00 07/21/24 07:59 06/24/24 05:57 100 MLS/HR Potassium Chloride 100 ml @ 100 mls/hr AD PRN IV POTASSIUM PROTOCOL 06/23/24 11:30 07/23/24 11:29 Potassium Chloride (K-Dur/Klor-Con 20meq) 20 meq AD PRN PO POTASSIUM PROTOCOL 06/23/24 11:30 07/23/24 11:29 Potassium Chloride (K-Dur/Klor-Con 20meq) 40 meq BID PO 06/22/24 09:00 06/22/24 21:01 DC 06/22/24 19:54 40 MEQ Potassium Chloride (K-Dur/Klor-Con 20meq) 40 meq BID PO 06/25/24 09:00 07/25/24 08:59 06/25/24 09:33 40 MEQ Potassium Chloride (KCl 10% Elixir 20meq/15ml) 20 meq AD PRN PO POTASSIUM PROTOCOL 06/23/24 11:30 07/23/24 11:29 Sodium Bicarbonate / Dextrose 1,000 ml @ 0 mls/hr Q0M IVP 06/17/24 05:00 06/17/24 04:58 DC Sodium Bicarbonate 150 meq/Dextrose 1,150 ml @ 50 mls/hr Q23H IVP 06/18/24 08:00 06/19/24 12:24 DC 06/18/24 20:23 100 MLS/HR Sodium Bicarbonate 150 meq/Dextrose 1,150 ml @ 100 mls/hr [id number] IVP 06/17/24 05:00 06/18/24 04:44 DC 06/17/24 21:00 100 MLS/HR Sodium Polystyrene Sulfonate (kayEXALate 15 GM/60 ML) 15 gm Q2H PO 06/16/24 21:30 06/16/24 23:31 DC 06/16/24 22:21 15 GM Sodium Chloride 1,000 ml @ 150 mls/hr Q6H40M IV 06/16/24 23:00 06/17/24 09:10 DC 06/17/24 05:15 150 MLS/HR Sodium Chloride (NS 50ml) 50 ml AD IV 06/17/24 01:00 06/17/24 01:05 DC Thiamine HCl (Vitamin B-1) 100 mg DAILY IVP 06/17/24 09:00 07/17/24 08:59 06/25/24 09:31 100 MG Tigecycline 100 mg/Sodium Chloride 100 ml @ 200 mls/hr ONCE IV 06/22/24 16:30 06/23/24 07:21 DC 06/22/24 18:51 200 MLS/HR Tigecycline 50 mg/ Sodium Chloride 100 ml @ 200 mls/hr BID@0600,1800 IV 06/23/24 06:00 06/30/24 05:59 06/25/24 05:35 200 MLS/HR Vancomycin HCl (Vancomycin 750mg) 750 mg Q96H IVPB 06/20/24 22:00 06/17/24 14:00 DC Vancomycin HCl (Vancomycin Protocol) 1 each AD IV 06/17/24 01:30 06/17/24 14:01 DC Vitamin B Complex/ Vit C/Folic Acid (Nephrovite Tablet) 1 cap DAILY PO 06/24/24 09:00 07/24/24 08:59 06/25/24 09:31 1 CAP Diagnostics / Radiology: [COPY/PASTE HERE IF NO REPORTS PLEASE DELETE SECTION] Assessment: Gastritis Acute blood loss anemia HTN DM Plan: Patient defers Colonoscopy Continue GI prophylaxis Advance diet as tolerated Avoid NSAIDs Antireflux measures Monitor H&H and transfuse as needed Call with questions, concerns or change in clinical status Patient to follow-up at clinic post discharge Thank you for this consult [facility] Jun 25, 2024 11:37
--- NOTE | 2024-06-25 12:11 | PN ---
NEPHROLOGY PROGRESS NOTE Date/Time Patient Seen: Jun 25, 2024 Reason for Consultation: 12:08 SUBJECTIVE: This is a 69-year-old male with a past medical history of peripheral artery disease with osteomyelitis S/p left 4th and 5th toe and right 3rd toe amputation, anemia, chronic pain, diabetes mellitus type 2, hypertension, hyperlipidemia, chronic kidney disease, recent COVID-19 infection. He presented to the emergency room via EMS from [facility] with complaints of low platelets, poor appetite and generalized weakness. Influenza and COVID swabs were negative CT of the abdomen showed mild enterocolitis with mild to moderate small and large bowel liquid contents. He was admitted to the ICU for further medical management of septic shock He continues to require vasopressors to maintain blood pressure. Continues with a severe lactic acidosis. Blood cultures were positive for Alicia tropicalis He continues on antibiotics In the emergency room he was noted to have elevated BUN/creatinine and hyperkalemia. Renal function is continues to improve Electrolytes are stable. Urine output was noted Renal ultrasound was noted Hematology evaluation continues Continues on IV amiodarone due to atrial fibrillation. He continues to refuse colonoscopy. He was seen in the medical floor, in no acute distress Family at the bedside Condition remains critical and guarded REVIEW OF SYSTEMS: GENERAL: Negative for any nausea, vomiting, fevers, chills, or weight loss. NEUROLOGIC: Negative for any blurry vision, blind spots, double vision, facial asymmetry, dysphagia, dysarthria, hemiparesis, hemisensory deficits, vertigo, ataxia. HEENT: Negative for any head trauma, neck trauma, neck stiffness, photophobia, phonophobia, sinusitis, rhinitis. CARDIAC: Negative for any chest pain, dyspnea on exertion, paroxysmal nocturnal dyspnea, peripheral edema. PULMONARY: Negative for any shortness of breath, wheezing, COPD, or TB exposure. GASTROINTESTINAL: Negative for any abdominal pain, nausea, vomiting, bright red blood per rectum, melena. GENITOURINARY: Negative for any dysuria, hematuria, incontinence. INTEGUMENTARY: Negative for any rashes, cuts, insect bites. RHEUMATOLOGIC: Negative for any joint pains, photosensitive rashes, history of vasculitis or kidney problems. HEMATOLOGIC: Negative for any abnormal bruising, frequent infections or bleeding. PHYSICAL EXAM: GENERAL: Lethargic. No acute distress. Well-nourished. EYES: EOMI. Anicteric. HENT: Moist mucous membranes. No scleral icterus. No cervical lymphadenopathy. LUNGS: Clear to auscultation bilaterally. No accessory muscle use. CARDIOVASCULAR: Regular rate and rhythm. No murmur. No JVD. ABDOMEN: Soft, non-tender and non-distended. No palpable masses. EXTREMITIES: No edema. Non-tender. SKIN: No rashes or lesions. Warm. NEUROLOGIC: No focal neurological deficits. CN II-XII grossly intact, but not individually tested. PSYCHIATRIC: Cooperative. Appropriate mood and affect. LABORATORY: [ ] Hematology Labs: Test 06/25/24 03:15 06/24/24 05:00 Range/Units White Blood Count 11.3 H 4.8-10.8 K/uL Red Blood Count 3.27 L 4.50-6.20 MIL/uL Hemoglobin 9.7 L 14.0-18.0 g/dL Hematocrit 28.2 L 42-54 % Mean Corpuscular Volume 86.2 79-99 fL Mean Corpuscular Hemoglobin 29.7 27.0-33.0 pg Mean Corpuscular Hemoglobin Concent 34.4 32.0-36.0 g/dL Red Cell Distribution Width 14.6 11.0-15.5 % Platelet Count 136 # 130-400 K/uL Mean Platelet Volume 12.2 H 7.5-10.5 fL Immature Granulocyte % (Auto) 1.6 H 0-1 % Neutrophils (%) (Auto) 85.4 H 40.0-77.0 % Lymphocytes (%) (Auto) 5.9 L 21.0-51.0 % Monocytes (%) (Auto) 6.9 3.0-13.0 % Eosinophils (%) (Auto) 0.1 0.0-8.0 % Basophils (%) (Auto) 0.1 0.0-5.0 % Neutrophils # (Auto) 9.6 H 1.8-7.7 K/uL Lymphocytes # (Auto) 0.7 L 1.0-4.8 K/uL Monocytes # (Auto) 0.8 0.1-1.0 K/uL Eosinophils # (Auto) 0.01 0.00-0.70 K/uL Basophils # (Auto) 0.01 0.00-0.20 K/uL Absolute Immature Granulocyte (auto 0.18 0-1 K/uL Nucleated Red Blood Cells 0.2 H 0.0-0.19 % White Cell Morphology Comment See comments Chemistry Labs: Test 06/25/24 11:18 06/25/24 03:15 06/24/24 19:37 Range/Units Whole Blood Glucose 242 H 70-110 MG/DL Sodium Level 138 136-145 mmol/L Potassium Level 2.9 *L 3.5-5.1 mmol/L Chloride Level 98 L 101-111 mmol/L Carbon Dioxide Level 28 21-32 mmol/L Blood Urea Nitrogen 112 *H 7-18 mg/dL Creatinine 5.9 H 0.5-1.3 mg/dL Glomerular Filtration Rate Calc 10 >90 mL/min Random Glucose 180 H 70-105 mg/dL Total Calcium 7.7 L 8.5-10.1 mg/dL Phosphorus Level 5.8 H 2.5-4.9 mg/dL Magnesium Level 2.10 1.80-2.40 mg/dL Total Bilirubin 0.5 0.2-1.0 mg/dL Aspartate Amino Transf (AST/SGOT) 21 10-37 U/L Alanine Aminotransferase (ALT/SGPT) 16 12-78 U/L Alkaline Phosphatase 124 50-136 U/L Total Protein 5.9 L 6.0-8.3 g/dL Albumin 2.1 L 3.5-5.0 g/dL Bedside Glucose Comment Notified Nurse DIAGNOSTICS / RADIOLOGY: REASON: SOB ORDERING PHYSICIAN: LALI BOLDEN BEAR KEEPER PROCEDURE: CXR1VW - CHEST 1VW PORTABLE CHEST RADIOGRAPH INDICATION: SOB COMPARISON: 06/18/2024 FINDINGS: web merchandiser leads overlie the field of view. Tip of right PICC within the SVC. Heart remains enlarged. The pulmonary vascularity and mauricio appear normal. No abnormal pulmonary parenchymal opacity or consolidation identified. No significant pleural effusion noted. No pneumothorax detected. IMPRESSION: Stable cardiac megaly without radiographic evidence for any acute cardiopulmonary process. DICTATED BY: ROLANDO HAN MD DATE: 06/19/24 1011 REASON: SOB ORDERING PHYSICIAN: LALI BOLDEN NP PROCEDURE: CXR1VW - CHEST 1VW PORTABLE CHEST RADIOGRAPH INDICATION: SOB COMPARISON: 06/16/2024 FINDINGS: web merchandiser leads overlie the field of view. Patient positioning is not optimal, but the radiologic examination is still believed to be of reasonable diagnostic quality. Stable right PICC. Stable heart size. Mild calcific plaque is present along the aortic arch rosales. The pulmonary vascularity and mauricio appear normal. Suspect very small layering right and very small left pleural effusions with subjacent passive linear opacities. No evidence for consolidation. No pneumothorax detected. IMPRESSION: Suspect very small layering right and very small left pleural effusions with subjacent passive atelectasis. DICTATED BY: ROLANDO HAN MD DATE: 06/19/24 1021 REASON: sob ORDERING PHYSICIAN: LILIAM LACY PROCEDURE: ECHO [facility] - ECHO 2-D COMPLETE APPROVED REPORT EXAM: Two-dimensional and M-mode echocardiogram with Doppler and color Doppler. INDICATION ICD: R06.02 Shortness of breath 2D Dimensions RVDd 5.0 cm LVEF(%) 68.3 (>50%) LVED Vol(simp.) 128.0 mL IVSd 1.4 (0.7-1.1cm) FS(%) 38 % LVES Vol(simp.) 51.0 mL LVDd 4.2 (3.8-5.6cm) LA (2D) 4.0 (1.6-4.0cm) LVEF(%, simp.) 60 % PWd 1.5 (0.7-1.1cm) Ao Root(2D) 4.0 (2.0-3.7cm) LA ESV INDEX (BP) 37.99 mL/m2 LVDs 2.6 (2.5-4.0cm) LVOT diam 2.3 (1.8-2.4cm) IVC diam 2.1 cm Deformation Strain Apical 4 -19.0 % Apical 2 -15.0 % Apical 3 -16.0 % Global Strain -17.0 % M-Mode Dimensions EPSS 1.1 cm LA (MM) 4.0 (1.6-4.0cm) Ao Root(MM) 3.0 (2.0-3.7cm) Aortic Valve AoV Vmax 2.5 m/s Ao Peak GR 24.7 mmHg LVOT Vmax 1.5 m/s AoV VTI 0.4 m Ao Mean GR 15.1 mmHg LVOT VTI 0.29 m DEBORA (VMAX) 2.9 cm2 DEBORA (VTI) 2.9 cm2 Mitral Valve MV E Vmax 144.9 cm/s DECEL Time 175 ms MV A Vmax 128.2 cm/s P 1/2 T 58 ms E/A ratio 1.1 MVA (PHT) 3.8 cm2 TDI E/E' Medial 16.1 E/E' Lateral 14.5 Medial E' Peak V 9.00 cm/s Lateral E' Peak V 10.00 cm/s Pulmonary Valve PV Vmax 1.3 m/s Tricuspid Valve TR Vmax 2.7 m/s RAP (EST) 3 mmHg RVSP 32.3 mmHg TR Peak GR 29.3 mmHg Left Ventricle The left ventricle is normal size. GS -17%. Hyoerdynamic LV with normal LV segmental wall motion. Moderate concentric left ventricular hypertrophy. LVEF is 60-65%. Grade 2 diastolic dysfunction. Right Ventricle The right ventricle is moderately dilated, measuring 5.0 cm. The right ventricular systolic function is normal. Atria The left atrium is mildly dilated with an LA ESV index of 38 mL/m�. The right atrium is moderately dilated. Aortic Valve Aortic valve is trileaflet, with mild sclerosis of the left coronary cusp. The aortic valve is seen to open near normally. No aortic regurgitation is present. There is no aortic valvular stenosis. Mitral Valve Mitral valve leaflets open well. Posterior annular and leaflet calcification noted. There is no mitral valve regurgitation noted. There is no mitral valve stenosis. Tricuspid Valve The tricuspid valve is normal in structure. There is trace of tricuspid valve regurgitation noted. Pulmonic Valve The pulmonary valve is normal in structure. There is no pulmonic valvular regurgitation. Great Vessels The aortic root is normal in size. The IVC is normal in size and collapses >50% with inspiration. Pericardium There is no pericardial effusion. Other Information Quality : Adequate Conclusion The left ventricle is normal size. Moderate concentric left ventricular hypertrophy. GS -17%. Hyoerdynamic LV with normal LV segmental wall motion. LVEF is 60-65%. Grade 2 diastolic dysfunction. Aortic valve is trileaflet, with mild sclerosis of the left coronary cusp. The aortic valve is seen to open near normally. There is no aortic valvular stenosis. Mitral valve leaflets open well. Posterior annular and leaflet calcification noted. There is no mitral valve stenosis. There is no mitral valve regurgitation noted. There is no pericardial effusion. DICTATED BY: KATJA LANDRY MD DATE: 06/17/24 0847 REASON: RENAL FAILURE ORDERING PHYSICIAN: EUSEBIO POWELL PROCEDURE: ABD PEL WO - CT ABDOMEN/PELVIS W/O CONTRAST CT ABDOMEN WITHOUT CONTRAST. CT PELVIS WITHOUT CONTRAST. INDICATION: Renal failure TECHNIQUE: Routine transaxial imaging using 5 mm slice thickness through the abdomen and pelvis without the administration of IV contrast. Thin slice reconstructions are also provided. Coronal and sagittal reformatted images acquired for interpretation. CT was performed with one or more of the following dose reduction techniques: Automated exposure control, adjustment of the mA and/or kV according to patient size, or use of iterative reconstruction technique. COMPARISON: None FINDINGS: Diagnostic sensitivity of this examination is limited by patient motion artifact. ON NONCONTRAST IMAGING: ABDOMEN: Heart size is normal. Mitral annular calcific plaque. Visible lung bases are clear. No abnormal renal calcifications, hydronephrosis, perinephric inflammation, or proximal hydroureter detected. The liver is normal in size and smooth in contour without biliary duct dilation. The spleen is normal in size and attenuation. Several miniscule calcifications within the gallbladder lumen. The pancreas appears normal without pancreatic duct dilation. The adrenal glands appear normal. No significant abdominal, retrocrural or retroperitoneal adenopathy noted. No evidence for intra-abdominal free air or organized fluid collection. Mild calcific plaque is noted along the abdominal aortic and iliac vessel rosales without aneurysmal dilation. PELVIS: Gallagher catheter within the nearly empty urinary bladder. Urinary bladder wall thickening is more than expected for empty urinary bladder. No evidence for free air or organized pelvic fluid collection. No significant pelvic adenopathy detected. Mild to moderate small and large bowel liquid contents. A few diverticula along the distal colon. Terminal ileum appears unremarkable. The appendix appears normal. Mild thoracolumbar spondylosis. IMPRESSION: 1. Probable mild enterocolitis with mild to moderate small and large bowel liquid contents. 2. Cholelithiasis. 3. Urinary bladder wall thickening, more than expected for empty urinary bladder. Correlation with urine studies is recommended. 4. Mild distal colonic diverticulosis. 5. Arteriosclerotic disease as described. DICTATED BY: ROLANDO HAN MD DATE: 06/17/24 1000 REASON: NETO ORDERING PHYSICIAN: BRENDA MAI MD PROCEDURE: RENAL - US RENAL SONOGRAM ULTRASOUND RENAL COMPLETE INDICATION: NETO TECHNIQUE: Routine ultrasound of the kidneys and urinary bladder with grayscale and color Doppler imaging was performed in real-time, and subsequently made available for review. COMPARISON: No prior studies available for comparison. FINDINGS: The right kidney measures 9.7 x 4.9 x 4.6 cm. No abnormal mass demonstrated. No evidence for hydronephrosis or shadowing stone. The left kidney measures 10.1 x 5.5 x 4.8 cm. No abnormal mass demonstrated. No evidence for hydronephrosis or shadowing stone. Urinary bladder wall thickness measures 4.0 mm, but exaggerated due to incomplete distention. No free fluid demonstrated. IMPRESSION: Normal sonographic appearance of the kidneys and urinary bladder. DICTATED BY: ROLANDO HAN MD DATE: 06/17/2449 REASON: cp ORDERING PHYSICIAN: MARY CARR MD PROCEDURE: CXR1VW - CHEST 1VW PORTABLE CHEST RADIOGRAPH INDICATION: cp COMPARISON: 05/06/2024 FINDINGS: web merchandiser leads overlie the field of view. Tip of right PICC within the SVC. Heart size is normal. Mild calcific plaque is present along the aortic arch rosales. The pulmonary vascularity and mauricio appear normal. No abnormal pulmonary parenchymal opacity or consolidation identified. No significant pleural effusion noted. No pneumothorax detected. IMPRESSION: No radiographic evidence for any acute cardiopulmonary process. DICTATED BY: ROLANDO HAN MD DATE: 06/16/24 0400 ASSESSMENT: Acute on chronic renal failure Severe Lactic acidosis Metabolic acidosis Hyperkalemia Septic shock, requiring vasopressor Acute encephalopathy Thrombocytopenia NSTEMI, rule-out demand ischemia vs true cardiac etiology Failure to thrive History of osteomyelitis with recent amputation Elevated troponin Elevated BNP Diabetes mellitus type 2 Hypertension Hyperlipidemia Peripheral artery disease PLAN: Labs, diagnostic, radiologic exams reviewed and interpreted by myself and supervising physician. We have reviewed external records in detail There is no need for emergent renal replacement therapy at this time. Potassium replacement has been ordered Require close monitoring of renal function and electrolytes Order CBC, CMP, and electrolytes in am Follow up culture results BiPAP as necessary, for respiratory distress Monitor blood pressure adjust medication doses as needed Avoid hypotensive episodes May use Dilaudid 0.5 mg IV every 6 hours as needed for severe pain Monitor blood sugars Strict intake, output, and daily weight should be monitored Please renally adjust medications Avoid nephrotoxic and nonsteroidal drugs Avoid contrast if possible Will continue to monitor renal function, anemia, electrolytes Treatment plan discussed with patient Questions were answered We have discussed with the other team physicians in detail about the care plan We will continue to monitor the patient closely ATTESTATION BY PHYSICIAN I have seen and examined the patient. I reviewed the documentation, medical decision making, and treatment plan as noted by the mid-level provider above. I agree with the findings and plan of care. BRENDA MAI MD, [facility] Jun 25, 2024 12:11
--- NOTE | 2024-06-25 12:24 | PN ---
[facility] PROGRESS NOTE Date of Service: Jun 25, 2024 Time of Service: 12:17 SUBJECTIVE: Patient is seen and examined at bedside, case discussed with the RN, during my visit the patient resting comfortably in bed, following simple commands, he is on blood pressure support with Levophed, getting sodium bicarbonate IV. BP 108/57, heart rate of 116, saturating 99% on 2 L nasal cannula. Hemoglobin 8.4, hematocrit 27.0, WBC 14.2, platelet count of 28. Sodium 143, potassium 5.0, bicarb of five, BUN 107, creatinine 9.7. ABG with pH of 7.8, pCO2 less than 15, bicarb of 2.3. 06/18 patient has been seen and examined at bedside, case discussed with the RN, patient remains confused, still on pressor support with Levophed and Andrew- Synephrine, patient also on sodium bicarbonate drip. No family members at bedside during my visit. Blood pressure 112/44, heart rate of 91, saturating 93%. CBC with WBC of 16.4, hemoglobin 8.2, hematocrit 23.7, platelet count of 27. Sodium 145, potassium 3.7, BUN of 102, creatinine 10.2, sodium bicarb of 12. ABG with pH of 7.33, pCO2 31, PO2 64, bicarb of 16.1. Septic workup reviewed, blood cultures no growth after 24 hours. Patient getting broad- spectrum IV antibiotics during my visit. CT of the abdomen pelvis probable mild enterocolitis with mild to moderate small and large bowel liquid content, cholelithiasis, urinary wall thickening, more than expected for empty urinary bladder. Mild distal colonic diverticulosis. 06/19 patient is seen and examined at bedside, case discussed with the RN, no acute events overnight, patient is still confused, however less compared to time of admission. Following very simple commands. He is currently off vasopressors. Replace, output since this morning 500 cc. Blood pressure 111/78, afebrile, saturating 96-98% 2 L nasal cannula. WBC trending down at 11.2, hemoglobin 7.6, hematocrit 20.9, platelet count of 14. BUN 108, creatini ne 10.2. ABG shows a pH 7.41, pCO2 37, PO2 81.5, bicarb 23.1. Blood culture showing Alicia tropicalis. Patient has been started on micafungin. Continue antibiotics. Continue critical care input and recommendation, continue Nephrology input and recommendation in terms of renal replacement therapy, continue daily weight, monitor intake and output. Follow anemia workup, stool o ccult blood, serial CBC transfuse 1 unit of PRBC hemoglobin less than seven, we will request Hematology consultation as well. 06/20 patient seen at bedside, no acute events overnight. He is not requiring pressors he is afebrile, hemodynamically stable saturating well on 2 L nasal cannula. Hemoglobin was 6.1 and platelets low at night, we will be transfused with packed red blood cells and platelets per critical Care, we will follow up post transfusion. Potassium decreased from 3.4 down to 3.2, creatinine stable at 10.2, we will follow up with Nephrology for recommendations. Urine output is improving, he has been started on Lasix, we will follow up. Patient continues on micafungin. Pt reticulocyte count low at 0.18 suggesting decreased production of RBC, FOBT positive as well concerning for GI Bleed. Will consult hematology and GI and follow up 06/21 patient seen at bedside, no acute events overnight. He has been afebrile, hemodynamically stable saturating well on 2 L nasal cannula. He has been NPO h owever he has no history of volume overload, and his kidney function is decreased, we will perfuse his kidneys with some IV fluids and allow clear liquid diet. Creatinine stable at 9.9, same as yesterday, potassium decreased at 3.0, nephrology to manage potassium levels until renal function improves. Hemoglobin improved from 8.0 up to 8.7, remainder of his labs are relatively unr emarkable. 06/22 Pt seen at bedside, no acute events overnight. He has been downgraded from ICU. He has been afebrile, hemodynamically stable, saturating well on room air. Hgb stable at 8.6, similar to yesterday, platelets decreased from 102 down to 82, potassium low at 2.7, will be repleted according to protocol, creatinine improved from 9.9 down to 8.5, sodium improved from 150 down to 146, remainder of his labs are relatively unremarkable. Urine output adequate, approximately 2.3L output in the last 24 hours. On physical exam, no evidence of volume overflow, will continue with IV fluids to perfuse his kidneys. Left foot gr owing mullins-resistant organism, ID to adjust antibiotics 06/23 patient seen at bedside, no acute events overnight. He is pending EGD with GI today, we will follow up postprocedure. He has been afebrile, hemodynamically stable, mildly hypertensive with systolics in the 150s, saturating well on 3 L nasal cannula. Hemoglobin improved from 8.6 up to 9.0, platelets decreased from 82 down to 78, creatinine continues to improve from 8.5 down to 7.2 with adequate urine output. Potassium low at 3.1, we will be rep leted according to potassium protocol. Patient weak and feeble, we will likely need transitioned to alf facility, case management to assist with placement. He will continue daily physical therapy. 06/24 patient seen at bedside, no acute events overnight. EGD was done yesterday no evidence of bleed noted. Patient refusing colonoscopy. Hgb is uptrending from 9.0 up to 9.3 suggesting resolution of GI bleed, platelets improved from 78 up to 87, creatinine improved from 7.2 down to 6.4, potassium low at 3.4, will be repleted according to protocol. Patient will need placement for IV antibiotics 06/25 patient seen at bedside, no acute events overnight. Continues to refuse colonoscopy yesterday he went into AFib with RVR was started on IV amiodarone. He was rate controlled today, likely we will be transitioned to p.o. amiodarone. Now pending placement to continue IV antibiotic and antifungal therapy. We will follow up with case management and Cardiology. Creatinine improved from 6.4 down to 5.9, BUN still elevated at 112. Potassium low at 2.9 will be repleted according to protocol and will give an extra 80meq supplementation. REVIEW OF SYSTEMS 12 point review of systems negative unless noted in HPI PHYSICAL EXAM GENERAL APPEARANCE: The patient remains confused. Withdrawing to painful stimulation. NEUROLOGICAL: Cranial nerves II-XII grossly intact. Motor is 5/5 in bilateral upper and lower extremities proximal to distal. No sensory deficits. HEENT: Face is symmetric. Pupils are equal and reactive. Extraocular movements are intact. NECK: Supple. No JVD. No thyromegaly. No submental, submandibular, pre- /postauricular, occipital or supraclavicular lymphadenopathy. CHEST: Normal chest expansion. No Telemetry. LUNGS: Absence of any rales, rhonchi or any wheezing. CARDIOVASCULAR: Regular. S1 and S2 normal. No appreciable rubs, murmurs or gallops. ABDOMEN: Soft, nontender, and nondistended. There is no rebound, voluntary guarding, or rigidity. : Deferred. No Gallagher. EXTREMITIES: Non-edematous and not cyanotic. No clubbing. Good capillary refill. SKIN: No skin breakdown. Vital Signs (last 8hr) Date Time Temp Pulse Resp B/P (MAP) Pulse Ox O2 Delivery O2 Flow Rate FiO2 06/25/24 08:00 97.9 69 18 133/81 95 Nasal Cannula 2.0 06/25/24 07:00 100 Nasal Cannula* 2 28 LABS: Laboratory: Test 06/25/24 11:18 06/25/24 03:15 06/24/24 19:37 06/24/24 05:00 Range/Units Whole Blood Glucose 242 H 70-110 MG/DL White Blood Count 11.3 H 4.8-10.8 K/uL Red Blood Count 3.27 L 4.50-6.20 MIL/uL Hemoglobin 9.7 L 14.0-18.0 g/dL Hematocrit 28.2 L 42-54 % Mean Corpuscular Volume 86.2 79-99 fL Mean Corpuscular Hemoglobin 29.7 27.0-33.0 pg Mean Corpuscular Hemoglobin Concent 34.4 32.0-36.0 g/dL Red Cell Distribution Width 14.6 11.0-15.5 % Platelet Count 136 # 130-400 K/uL Mean Platelet Volume 12.2 H 7.5-10.5 fL Immature Granulocyte % (Auto) 1.6 H 0-1 % Neutrophils (%) (Auto) 85.4 H 40.0-77.0 % Lymphocytes (%) (Auto) 5.9 L 21.0-51.0 % Monocytes (%) (Auto) 6.9 3.0-13.0 % Eosinophils (%) (Auto) 0.1 0.0-8.0 % Basophils (%) (Auto) 0.1 0.0-5.0 % Neutrophils # (Auto) 9.6 H 1.8-7.7 K/uL Lymphocytes # (Auto) 0.7 L 1.0-4.8 K/uL Monocytes # (Auto) 0.8 0.1-1.0 K/uL Eosinophils # (Auto) 0.01 0.00-0.70 K/uL Basophils # (Auto) 0.01 0.00-0.20 K/uL Absolute Immature Granulocyte (auto 0.18 0-1 K/uL Nucleated Red Blood Cells 0.2 H 0.0-0.19 % Sodium Level 138 136-145 mmol/L Potassium Level 2.9 *L 3.5-5.1 mmol/L Chloride Level 98 L 101-111 mmol/L Carbon Dioxide Level 28 21-32 mmol/L Blood Urea Nitrogen 112 *H 7-18 mg/dL Creatinine 5.9 H 0.5-1.3 mg/dL Glomerular Filtration Rate Calc 10 >90 mL/min Random Glucose 180 H 70-105 mg/dL Total Calcium 7.7 L 8.5-10.1 mg/dL Phosphorus Level 5.8 H 2.5-4.9 mg/dL Magnesium Level 2.10 1.80-2.40 mg/dL Total Bilirubin 0.5 0.2-1.0 mg/dL Aspartate Amino Transf (AST/SGOT) 21 10-37 U/L Alanine Aminotransferase (ALT/SGPT) 16 12-78 U/L Alkaline Phosphatase 124 50-136 U/L Total Protein 5.9 L 6.0-8.3 g/dL Albumin 2.1 L 3.5-5.0 g/dL Bedside Glucose Comment Notified Nurse White Cell Morphology Comment See comments Vancomycin Level 5.4 L 20.0-30.0 mcg/mL Current Medications Medications (Trade) Dose Ordered Sig/Roderick Route PRN Reason Start Time Stop Time Status Last Admin Dose Admin Albuterol Sulfate (Proventil 0.083% 2.5mg/3ml) 10 mg ONCE STAT IH 06/17/24 04:05 06/17/24 04:12 DC 06/17/24 04:31 10 MG Amiodarone HCl 360 mg/Dextrose 200 ml @ 0 mls/hr PROTOCOL IV 06/24/24 14:30 06/25/24 09:16 DC 06/24/24 15:51 33.33 MLS/HR Amiodarone HCl 540 mg/Dextrose 300 ml @ 0 mls/hr PROTOCOL IV 06/24/24 21:00 07/24/24 20:59 4/23/25 20:42 16.7 MLS/HR Amlodipine Besylate (NorvASC 5MG TAB) 5 mg BID PO 06/22/24 09:00 07/22/24 08:59 06/25/24 09:31 5 MG Apixaban (EliquIS) 5 mg BID PO 06/24/24 14:30 07/24/24 14:29 06/25/24 09:32 5 MG Calcium Gluconate (Calcium Gluc 1gm Vial) 1 gm AD STAT IV 06/17/24 04:05 06/17/24 04:12 DC 06/17/24 04:21 1 GM Cefepime HCl (MAXipime 1 GM vial) 0.25 gm Q24H IVPB 06/17/24 04:00 06/18/24 04:06 DC 06/17/24 04:58 0.25 GM Cefepime HCl (MAXipime 1 GM vial) 1 gm Q24H IVPB 06/20/24 05:00 06/22/24 16:09 DC 06/22/24 03:12 1 GM Cefepime HCl 0.25 gm/Sodium Chloride 50 ml @ 100 mls/hr Q24H IVPB 06/18/24 04:30 06/19/24 10:58 DC 06/19/24 05:26 100 MLS/HR Dextrose (D50w) 50 ml AD PRN IV HYPOGLYCEMIA PROTOCOL 06/17/24 01:00 06/17/24 01:01 DC Dextrose (D50w) 50 ml AD PRN IV HYPOGLYCEMIA PROTOCOL 06/17/24 01:00 07/17/24 00:59 Dextrose (D50w) 50 ml ONCE STAT IV 06/17/24 04:05 06/17/24 04:12 DC 06/17/24 04:21 50 ML Epoetin Rylan-epbx (Retacrit) 10,000 unit [id number] SQ 06/24/24 14:00 06/24/24 13:53 DC Epoetin Rylan-epbx (Retacrit) 10,000 unit QWEEK SQ 06/24/24 14:00 07/24/24 13:59 06/24/24 14:37 10,000 UNIT Famotidine (Pepcid 20mg Vial) 20 mg Q48H IV 06/17/24 01:00 07/17/24 00:59 06/25/24 00:55 20 MG Folic Acid (FOLic ACID 1 MG TABLET) 1 mg DAILY PO 06/25/24 09:00 07/25/24 08:59 06/25/24 09:32 1 MG Furosemide (LASix 40MG VIAL) 40 mg Q8H IV 06/19/24 18:30 06/20/24 18:31 DC 06/20/24 18:54 40 MG Glucagon (Glucagon 1mg Kit) 1 mg AD PRN IM HYPOGLYCEMIA PROTOCOL 06/17/24 01:00 06/17/24 01:01 DC Glucagon (Glucagon 1mg Kit) 1 mg AD PRN IM HYPOGLYCEMIA PROTOCOL 06/17/24 01:00 07/17/24 00:59 Hydralazine HCl ([id number] TAB) 25 mg TID PO 06/22/24 09:00 07/22/24 08:59 06/25/24 09:33 25 MG Hydrocortisone Sodium Succinate (Solu-corTEF 100MG) 50 mg ONCE@1930 IV 06/22/24 19:30 06/22/24 22:30 DC 06/22/24 19:59 50 MG Hydrocortisone Sodium Succinate (Solu-corTEF 100MG) 50 mg Q8H IV 06/18/24 11:30 06/22/24 15:46 DC 06/22/24 03:12 50 MG Hydrocortisone Sodium Succinate (Solu-corTEF 100MG) 50 mg Q8H6 IV 06/23/24 06:00 07/23/24 05:59 06/25/24 05:35 50 MG Hydromorphone HCl (DiLAUDid 0.5MG INJ) 0.5 mg Q4H PRN IVP SEVERE PAIN (7-10) 06/20/24 13:00 06/25/24 12:59 06/21/24 23:50 0.5 MG Insulin Human Regular (humuLIN R 100 UNIT/ML 3ML) 10 unit ONCE STAT IV 06/17/24 04:05 06/17/24 04:12 DC 06/17/24 04:28 10 UNIT Insulin Human Regular (humuLIN R 100 UNIT/ML 3ML) INSULIN SLIDING SCAL... ACHS SQ 06/17/24 07:30 07/17/24 07:29 06/24/24 20:33 4 UNIT Lactated Ringer's 1,000 ml @ 130 mls/hr Q7H42M IV 06/21/24 09:30 07/21/24 09:29 06/25/24 05:25 130 MLS/HR Leptospermum Honey (Medihoney) 1 appl DAILY TP 06/19/24 09:00 07/19/24 08:59 06/25/24 09:36 1 APPL Magnesium Sulfate 50 ml @ 0 mls/hr PROTOCOL PRN IV MAGNESIUM PROTOCOL 06/23/24 11:30 07/23/24 11:29 06/24/24 05:57 25 MLS/HR Metoprolol Tartrate (loprESSOR) 25 mg BID PO 06/24/24 14:30 07/24/24 14:29 06/25/24 09:31 25 MG Metronidazole/ Sodium Chloride (flaGYL) 500 mg Q8H IV 06/17/24 05:00 06/27/24 04:59 06/25/24 05:24 500 MG Micafungin Sodium 100 ml @ 100 mls/hr Q24H IV 06/18/24 00:00 07/18/24 00:00 06/25/24 00:55 100 MLS/HR Norepinephrine 250 ml @ 0 mls/hr PROTOCOL IV 06/16/24 22:00 06/22/24 07:20 DC 06/17/24 05:33 24.5 MLS/HR Ondansetron HCl (zoFRAN 4MG INJ) 4 mg Q6H PRN IVP NAUSEA/VOMITING 06/23/24 20:30 07/23/24 20:29 06/23/24 20:10 4 MG Pharmacy Profile Note (Lace Assessment) 1 each AD MISC 06/19/24 15:30 06/20/24 12:49 DC Pharmacy Profile Note (Pharmacy Communication) 1 each ONCE MISC 06/17/24 23:00 06/19/24 07:13 DC 06/17/24 23:31 1 EACH Pharmacy Profile Note (Pharmacy Communication) 1 each ONCE MISC 06/22/24 16:30 06/23/24 07:22 DC Phenylephrine HCl 100 mg/Sodium Chloride 250 ml @ 0 mls/hr AD PRN IV TITRATE 06/17/24 10:30 06/22/24 07:20 DC 06/18/24 05:48 27 MLS/HR Piperacillin Sod/ Tazobactam Sod (Zosyn 3.375gm+NS 50ml) 3.375 gm Q12H IV 06/16/24 21:30 06/17/24 01:03 DC 06/16/24 21:42 3.375 GM Piperacillin Sod/ Tazobactam Sod (Zosyn 3.375gm+NS 50ml) 3.375 gm Q12H IVPB 06/17/24 01:00 06/17/24 04:00 DC 06/17/24 02:54 3.375 GM Potassium Chloride 100 ml @ 100 mls/hr AD PRN IV POTASSIUM PROTOCOL 06/21/24 08:00 07/21/24 07:59 06/24/24 05:57 100 MLS/HR Potassium Chloride 100 ml @ 100 mls/hr AD PRN IV POTASSIUM PROTOCOL 06/23/24 11:30 07/23/24 11:29 Potassium Chloride (K-Dur/Klor-Con 20meq) 20 meq AD PRN PO POTASSIUM PROTOCOL 06/23/24 11:30 07/23/24 11:29 Potassium Chloride (K-Dur/Klor-Con 20meq) 40 meq BID PO 06/22/24 09:00 06/22/24 21:01 DC 06/22/24 19:54 40 MEQ Potassium Chloride (K-Dur/Klor-Con 20meq) 40 meq BID PO 06/25/24 09:00 07/25/24 08:59 06/25/24 09:33 40 MEQ Potassium Chloride (KCl 10% Elixir 20meq/15ml) 20 meq AD PRN PO POTASSIUM PROTOCOL 06/23/24 11:30 07/23/24 11:29 Sodium Bicarbonate / Dextrose 1,000 ml @ 0 mls/hr Q0M IVP 06/17/24 05:00 06/17/24 04:58 DC Sodium Bicarbonate 150 meq/Dextrose 1,150 ml @ 50 mls/hr Q23H IVP 06/18/24 08:00 06/19/24 12:24 DC 06/18/24 20:23 100 MLS/HR Sodium Bicarbonate 150 meq/Dextrose 1,150 ml @ 100 mls/hr [id number] IVP 06/17/24 05:00 06/18/24 04:44 DC 06/17/24 21:00 100 MLS/HR Sodium Polystyrene Sulfonate (kayEXALate 15 GM/60 ML) 15 gm Q2H PO 06/16/24 21:30 06/16/24 23:31 DC 06/16/24 22:21 15 GM Sodium Chloride 1,000 ml @ 150 mls/hr Q6H40M IV 06/16/24 23:00 06/17/24 09:10 DC 06/17/24 05:15 150 MLS/HR Sodium Chloride (NS 50ml) 50 ml AD IV 06/17/24 01:00 06/17/24 01:05 DC Thiamine HCl (Vitamin B-1) 100 mg DAILY IVP 06/17/24 09:00 07/17/24 08:59 06/25/24 09:31 100 MG Tigecycline 100 mg/Sodium Chloride 100 ml @ 200 mls/hr ONCE IV 06/22/24 16:30 06/23/24 07:21 DC 06/22/24 18:51 200 MLS/HR Tigecycline 50 mg/ Sodium Chloride 100 ml @ 200 mls/hr BID@0600,1800 IV 06/23/24 06:00 06/30/24 05:59 06/25/24 05:35 200 MLS/HR Vancomycin HCl (Vancomycin 750mg) 750 mg Q96H IVPB 06/20/24 22:00 06/17/24 14:00 DC Vancomycin HCl (Vancomycin Protocol) 1 each AD IV 06/17/24 01:30 06/17/24 14:01 DC Vitamin B Complex/ Vit C/Folic Acid (Nephrovite Tablet) 1 cap DAILY PO 06/24/24 09:00 07/24/24 08:59 06/25/24 09:31 1 CAP DIAGNOSTICS / RADIOLOGY: [ ] ASSESSMENT: Severe metabolic acidosis, resolved POA Septic shock requiring vasopressor, resolved POA Paroxysmal afib with RVR Fungemia 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 Nephrology consulted, appreciate recommendations Start LR @ 130 cc/hr Start clear liquid diet Continue furosemide GI consulted, appreciate recommendations Hematology consulted, appreciate recommendations Anemia workup. Transfuse as needed. Hematology consultation requested per Follow critical care input and recommendation Disposition: Pending placement, antibiotics, transition to PO amiodarone AL CARDONA MD Jun 25, 2024 12:24
--- NOTE | 2024-06-25 16:25 | NUR ---
[facility] Follow-up: Patient re-assessed by wound healing team, wound improving. Assessment and recommendations provided to primary nurse. Education provided. Wound care done. Addendum: 06/25/24 at 1626 by MATT PEREZ RN RN/ Amended: Links added.
--- NOTE | 2024-06-25 16:31 | NUR ---
Message sent to Dr Sawyer regarding patients iv cordorone completed.
--- NOTE | 2024-06-25 17:18 | PN ---
[facility] CARDIOLOGY PROGRESS NOTE Date Patient Seen: Jun 25, 2024 Time of Visit: 17:17 Problem List: New onset AFL with RVR Interval History: Patient feels well Seen with family members at bedside. Physical Examination: GENERAL: [No acute distress.] HEAD: [Normal with no signs of head trauma.] LUNGS: [Clear breath sounds bilaterally. No wheezes, or rhonchi.] HEART: [Normal rate and rhythm. .] VASC: [Peripheral pulses +2 bilaterally.] EXT: [No clubbing, cyanosis or edema.] SKIN: [No rashes or lesions noted.] NEURO: [Awake, alert, and oriented x3. No focal sensory or strength deficits noted.] Laboratory: [ ] Hematology Labs: Test 06/25/24 03:15 06/24/24 05:00 Range/Units White Blood Count 11.3 H 4.8-10.8 K/uL Red Blood Count 3.27 L 4.50-6.20 MIL/uL Hemoglobin 9.7 L 14.0-18.0 g/dL Hematocrit 28.2 L 42-54 % Mean Corpuscular Volume 86.2 79-99 fL Mean Corpuscular Hemoglobin 29.7 27.0-33.0 pg Mean Corpuscular Hemoglobin Concent 34.4 32.0-36.0 g/dL Red Cell Distribution Width 14.6 11.0-15.5 % Platelet Count 136 # 130-400 K/uL Mean Platelet Volume 12.2 H 7.5-10.5 fL Immature Granulocyte % (Auto) 1.6 H 0-1 % Neutrophils (%) (Auto) 85.4 H 40.0-77.0 % Lymphocytes (%) (Auto) 5.9 L 21.0-51.0 % Monocytes (%) (Auto) 6.9 3.0-13.0 % Eosinophils (%) (Auto) 0.1 0.0-8.0 % Basophils (%) (Auto) 0.1 0.0-5.0 % Neutrophils # (Auto) 9.6 H 1.8-7.7 K/uL Lymphocytes # (Auto) 0.7 L 1.0-4.8 K/uL Monocytes # (Auto) 0.8 0.1-1.0 K/uL Eosinophils # (Auto) 0.01 0.00-0.70 K/uL Basophils # (Auto) 0.01 0.00-0.20 K/uL Absolute Immature Granulocyte (auto 0.18 0-1 K/uL Nucleated Red Blood Cells 0.2 H 0.0-0.19 % White Cell Morphology Comment See comments Chemistry Labs: Test 06/25/24 16:42 06/25/24 03:15 06/24/24 19:37 Range/Units Whole Blood Glucose 217 H 70-110 MG/DL Sodium Level 138 136-145 mmol/L Potassium Level 2.9 *L 3.5-5.1 mmol/L Chloride Level 98 L 101-111 mmol/L Carbon Dioxide Level 28 21-32 mmol/L Blood Urea Nitrogen 112 *H 7-18 mg/dL Creatinine 5.9 H 0.5-1.3 mg/dL Glomerular Filtration Rate Calc 10 >90 mL/min Random Glucose 180 H 70-105 mg/dL Total Calcium 7.7 L 8.5-10.1 mg/dL Phosphorus Level 5.8 H 2.5-4.9 mg/dL Magnesium Level 2.10 1.80-2.40 mg/dL Total Bilirubin 0.5 0.2-1.0 mg/dL Aspartate Amino Transf (AST/SGOT) 21 10-37 U/L Alanine Aminotransferase (ALT/SGPT) 16 12-78 U/L Alkaline Phosphatase 124 50-136 U/L Total Protein 5.9 L 6.0-8.3 g/dL Albumin 2.1 L 3.5-5.0 g/dL Bedside Glucose Comment Notified Nurse Diagnostics / Radiology: Conclusion The left ventricle is normal size. Moderate concentric left ventricular hypertrophy. GS -17%. Hyoerdynamic LV with normal LV segmental wall motion. LVEF is 60-65%. Grade 2 diastolic dysfunction. Aortic valve is trileaflet, with mild sclerosis of the left coronary cusp. The aortic valve is seen to open near normally. There is no aortic valvular stenosis. Mitral valve leaflets open well. Posterior annular and leaflet calcification noted. There is no mitral valve stenosis. There is no mitral valve regurgitation noted. There is no pericardial effusion. DICTATED BY: KATJA LANDRY MD DATE: 06/17/24 0847 Impression and Plan: New onset atrial fibrillation with RVR and atrial flutter, - [id number] Score of 3 - status post amiodarone bolus with infusion x24 hours. - started on low dose metoprolol and tolerating. Septic shock POA Severe lactic acidosis 9.1 POA Acute on chronic renal failure with admission creatinine of 9.9 and estimated GFR of 5 (prior GFR of 30 and creatinine of 2.3 on 05/05/2024) Thrombocytopenia Type 2 MD with troponin rising to 581 in the setting of septic shock, severe lactic acidosis, and acute renal failure Normal LV systolic function with an LVEF of 60-65% and grade 2 diastolic dysfunction by 2D echocardiogram 06/17/2024 Osteomyelitis of the left 4th and 5th ray amputation during admission 05/05/2024 Peripheral artery disease Hypertension Hyperlipidemia Type 2 diabetes mellitus HR shows improved control with addition of low dose metoprolol Discontinue amiodarone infusion Will monitor HR response and titrate BB as needed. GIFTY CONNER DO Jun 25, 2024 17:18
--- NOTE | 2024-06-25 19:05 | PN ---
[facility] PROGRESS NOTE Date Patient Seen: Jun 25, 2024 Time of Visit: 19:05 Supervising Physician: Dr. Pipe Patel Primary Care Physician: [None-recently relocated from [place]] Outpatient Specialists: [ ] Inpatient Consults: [facility] team, nephro: Dr. Dowd, cardio: Dr. Bae] PROBLEM LIST: Septic shock, requiring pressor-POA Acute encephalopathy; likely multifactorial infectious, uremic and toxic metabolic-POA Severe metabolic acidosis-POA Acute renal failure, severe-POA Uremia-POA Severe hyperkalemia-POA Resolved Thrombocytopenia-POA Severe lactic acidosis-POA NSTEMI, rule-out demand ischemia vs true cardiac etiology-POA INTERVAL HISTORY: Patient evaluated at bedside today, currently on 2 L nasal cannula white count today is 11.2. Patient continues on Flagyl, tigecycline, micafungin, asleep on arrival but arousable, answers questions appropriately. Patient expresses a willingness to continue this treatment on this admission. Hemoglobin today is 9.7 Remains on O2 Very weak Severely deconditioned poor appetite no nausea or vomiting REVIEW OF SYSTEMS: Unable to perform 12 point ROS due to patient's encephalopathy. PHYSICAL EXAM: GENERAL: Awake, Alert. Generally weak HEENT: Normocephalic, atraumatic, dry mucosa NECK: Supple, no JVD, trachea midline LUNGS: Clear breath sounds bilaterally. No wheezes HEART: Regular rate and rhythm. Normal S1 and S2, positive murmurs , tachycardic ABD: Abdomen soft, nontender. Bowel sounds present EXT: No clubbing, cyanosis, or edema, bilateral feet wound with toe amputations with dressing CDI NEURO: Deferred LABS: Hematology Labs: Test 06/25/24 03:15 06/24/24 05:00 Range/Units White Blood Count 11.3 H 4.8-10.8 K/uL Red Blood Count 3.27 L 4.50-6.20 MIL/uL Hemoglobin 9.7 L 14.0-18.0 g/dL Hematocrit 28.2 L 42-54 % Mean Corpuscular Volume 86.2 79-99 fL Mean Corpuscular Hemoglobin 29.7 27.0-33.0 pg Mean Corpuscular Hemoglobin Concent 34.4 32.0-36.0 g/dL Red Cell Distribution Width 14.6 11.0-15.5 % Platelet Count 136 # 130-400 K/uL Mean Platelet Volume 12.2 H 7.5-10.5 fL Immature Granulocyte % (Auto) 1.6 H 0-1 % Neutrophils (%) (Auto) 85.4 H 40.0-77.0 % Lymphocytes (%) (Auto) 5.9 L 21.0-51.0 % Monocytes (%) (Auto) 6.9 3.0-13.0 % Eosinophils (%) (Auto) 0.1 0.0-8.0 % Basophils (%) (Auto) 0.1 0.0-5.0 % Neutrophils # (Auto) 9.6 H 1.8-7.7 K/uL Lymphocytes # (Auto) 0.7 L 1.0-4.8 K/uL Monocytes # (Auto) 0.8 0.1-1.0 K/uL Eosinophils # (Auto) 0.01 0.00-0.70 K/uL Basophils # (Auto) 0.01 0.00-0.20 K/uL Absolute Immature Granulocyte (auto 0.18 0-1 K/uL Nucleated Red Blood Cells 0.2 H 0.0-0.19 % White Cell Morphology Comment See comments Chemistry Labs: Test 06/25/24 16:42 06/25/24 03:15 06/24/24 19:37 Range/Units Whole Blood Glucose 217 H 70-110 MG/DL Sodium Level 138 136-145 mmol/L Potassium Level 2.9 *L 3.5-5.1 mmol/L Chloride Level 98 L 101-111 mmol/L Carbon Dioxide Level 28 21-32 mmol/L Blood Urea Nitrogen 112 *H 7-18 mg/dL Creatinine 5.9 H 0.5-1.3 mg/dL Glomerular Filtration Rate Calc 10 >90 mL/min Random Glucose 180 H 70-105 mg/dL Total Calcium 7.7 L 8.5-10.1 mg/dL Phosphorus Level 5.8 H 2.5-4.9 mg/dL Magnesium Level 2.10 1.80-2.40 mg/dL Total Bilirubin 0.5 0.2-1.0 mg/dL Aspartate Amino Transf (AST/SGOT) 21 10-37 U/L Alanine Aminotransferase (ALT/SGPT) 16 12-78 U/L Alkaline Phosphatase 124 50-136 U/L Total Protein 5.9 L 6.0-8.3 g/dL Albumin 2.1 L 3.5-5.0 g/dL Bedside Glucose Comment Notified Nurse DIAGNOSTICS / RADIOLOGY RESULTS: [ ] PLAN Disposition as per primary case management consult for disposition continue on supplemental oxygen aspiration precautions nutritional support NEURO: Minimize central acting medications as possible. Maintain fall precautions, adequate lighting during the day PULMONARY: Supplemental 02 as needed. Maintain aspiration precautions at all times CARDIOVASCULAR: Follow hemodynamics. Vital signs per facility protocol GI & NUTRITION: Continue with nutritional support. Continue stool softeners and laxatives as needed. KIDNEYS & ELECTROLYTES: Strict monitoring of intake, output and overall fluid balance. Avoid nephrotoxic medications to the extent possible. Medications to be dosed according to renal function. Monitor electrolytes and replace as needed ENDOCRINE: Maintain blood glucose between 100-180 at all times. Hypoglycemia protocol in place INFECTIOUS DISEASE: Trend temperature, WBC and procalcitonin level Follow cultures, deescalate antibiotics as soon as possible. Panculture if new onset fever ONCOLOGY/HEMATOLOGY/COAGULATION: Monitor for s/s of bleeding Monitor hemoglobin, coagulation studies as needed SKIN: Pressure ulcer prevention per facility protocol Specialty mattress ORTHO/REHAB: Continue PT/OT Prophylaxis: Continue GI and DVT prophylaxis Code Status: Full Resuscitation Disposition: as per PCP Total critical care time: 35 minutes. CAIO TRIVEDI Jun 25, 2024 19:05 PIPE ALLISON MD Jun 26, 2024 07:19
--- NOTE | 2024-06-25 23:37 | PN ---
INFECTIOUS DISEASE PROGRESS NOTE Date of Service: Jun 25, 2024 SUBJECTIVE: Patient was seen and examined at bedside in room 308. Patient is awake, alert and oriented. Patient resting comfortably in bed. Continues on amiodarone drip. Continues on Tygacil IV, micafungin IV and metronidazole. Patient remains afebrile, temperature is 97.9�. We will continue to follow patient's care. PHYSICAL EXAM EYES: Anicteric. Pupils equal and reactive. HENT: No oral thrush seen, moist Oral mucosa. NECK: Supple, no JVD or thyromegaly. LUNGS: Good air entry. No rales, no rhonchi. CARDIOVASCULAR: S1, S2 regular. No murmur heard. ABDOMEN: Soft, non tender, bowel sounds present, no organomegaly. CENTRAL NERVOUS SYSTEM: Awake, alert, oriented x 2. SKIN: No rashes, no swelling. LYMPHATICS: No peripheral lymphadenopathy. MUSCULOSKELETAL: No joint swelling, erythema or tenderness. EXTREMITIES: No cyanosis or clubbing. 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 BACK: No deformity, no pressure ulcer. GENITOURINARY: No dysuria or hematuria. Vital Sign (Last 12 Hours) 06/25/24 06/25/24 06/25/24 06/25/24 12:00 16:00 19:32 23:01 Temp 98.4 97.9 97.5 97.3 Pulse 65 65 68 69 Resp 19 19 18 18 B/P (MAP) 133/79 119/76 122/70 119/70 Pulse Ox 94 95 95 96 O2 Delivery Room Air Room Air Nasal Cannula Nasal Cannula O2 Flow Rate 2.0 2.0 Intake & Output (last 24hrs) 06/24/24 06/24/24 06/25/24 15:00 23:00 07:00 Intake Total 1025.0 ml 400.0 ml 300.0 ml Output Total 800 ml Balance 1025.0 ml 400.0 ml -500.0 ml LABS: Laboratory: Test 06/25/24 19:46 06/25/24 03:15 06/24/24 19:37 06/24/24 05:00 Range/Units Whole Blood Glucose 170 H 70-110 MG/DL White Blood Count 11.3 H 4.8-10.8 K/uL Red Blood Count 3.27 L 4.50-6.20 MIL/uL Hemoglobin 9.7 L 14.0-18.0 g/dL Hematocrit 28.2 L 42-54 % Mean Corpuscular Volume 86.2 79-99 fL Mean Corpuscular Hemoglobin 29.7 27.0-33.0 pg Mean Corpuscular Hemoglobin Concent 34.4 32.0-36.0 g/dL Red Cell Distribution Width 14.6 11.0-15.5 % Platelet Count 136 # 130-400 K/uL Mean Platelet Volume 12.2 H 7.5-10.5 fL Immature Granulocyte % (Auto) 1.6 H 0-1 % Neutrophils (%) (Auto) 85.4 H 40.0-77.0 % Lymphocytes (%) (Auto) 5.9 L 21.0-51.0 % Monocytes (%) (Auto) 6.9 3.0-13.0 % Eosinophils (%) (Auto) 0.1 0.0-8.0 % Basophils (%) (Auto) 0.1 0.0-5.0 % Neutrophils # (Auto) 9.6 H 1.8-7.7 K/uL Lymphocytes # (Auto) 0.7 L 1.0-4.8 K/uL Monocytes # (Auto) 0.8 0.1-1.0 K/uL Eosinophils # (Auto) 0.01 0.00-0.70 K/uL Basophils # (Auto) 0.01 0.00-0.20 K/uL Absolute Immature Granulocyte (auto 0.18 0-1 K/uL Nucleated Red Blood Cells 0.2 H 0.0-0.19 % Sodium Level 138 136-145 mmol/L Potassium Level 2.9 *L 3.5-5.1 mmol/L Chloride Level 98 L 101-111 mmol/L Carbon Dioxide Level 28 21-32 mmol/L Blood Urea Nitrogen 112 *H 7-18 mg/dL Creatinine 5.9 H 0.5-1.3 mg/dL Glomerular Filtration Rate Calc 10 >90 mL/min Random Glucose 180 H 70-105 mg/dL Total Calcium 7.7 L 8.5-10.1 mg/dL Phosphorus Level 5.8 H 2.5-4.9 mg/dL Magnesium Level 2.10 1.80-2.40 mg/dL Total Bilirubin 0.5 0.2-1.0 mg/dL Aspartate Amino Transf (AST/SGOT) 21 10-37 U/L Alanine Aminotransferase (ALT/SGPT) 16 12-78 U/L Alkaline Phosphatase 124 50-136 U/L Total Protein 5.9 L 6.0-8.3 g/dL Albumin 2.1 L 3.5-5.0 g/dL Bedside Glucose Comment Notified Nurse White Cell Morphology Comment See comments Vancomycin Level 5.4 L 20.0-30.0 mcg/mL ASSESSMENT: Fungemia. 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 Septic shock, resolving. Anemia requiring blood transfusion, status post EGD. Acute renal failure. Thrombocytopenia, resolving. PLAN: Continue tigecycline IV. Continue micafungin. Continue metronidazole. Continue wound care. Adjustment Examiner following patient. Avoid nephrotoxic medications. Case management working on placement, patient will need 2-3 weeks of IV antibiotics. This case was reviewed and discussed with my supervising physician and the above assessment and plan was formulated and agreed upon. ATTESTATION BY PHYSICIAN I have seen and examined the patient. I reviewed the documentation, medical decision making, and treatment plan as noted by the mid-level provider above. I agree with the findings and plan of care. CECIL ROY MD, [facility] Jun 25, 2024 23:37
--- NOTE | 2024-06-25 23:37 | PN ---
69-year-old male with past medical history of diabetes mellitus type 2, hypertension, ESRD (baseline Cr ~2.3, now up to 7.2�9.9, GFR ~5�8), osteomyelitis with history of multiple toe amputations, recent septic shock (now off vasopressors), and ongoing broad-spectrum antibiotic therapy. Patient is a poor historian and resides in a nursing facility. Per family, he was doing relatively well until ~1 week ago when he had decreased oral intake and developed progressive lethargy. He had a recent COVID infection three weeks ago, now resolved. He presented with acute encephalopathy, hyperkalemia, metabolic acidosis, and severe thrombocytopenia (initially 32K, now improving to 78K). Notable labs include chronic normocytic anemia (Hgb trending 6.1�9.0), thrombocytopenia (platelets aren 28K, now 78K), and pancytopenia picture. Peripheral smear shows hypochromia, rouleaux formation, hypersegmented neutrophils, no schistocytes or helmet cells. Reticulocyte count is low (0.18%), immature reticulocytes elevated (2%). Iron saturation is high (79.7%), with low TIBC (94), suggesting anemia of chronic disease or myelodysplasia. Manual platelet count is ~100K PHYSICAL EXAM GENERAL: No acute respiratory distress. VITAL SIGNS: Reviewed and stable. HEENT: The sclerae are clear. The pupils are equal and reactive to light. The oropharyngeal cavity is within normal limits. NECK: Supple without lymphadenopathy. CHEST: Lung is clear bilaterally there is no wheezing or crackles. HEART: Sounds are regular and rhythmic. ABDOMEN: No guarding or rigidity. Bowel sounds positive. NEUROLOGICAL: The patient is alert and oriented. No focal deficits. Patient with generalized weakness. LYMPH NODES: There is no lymphadenopathy could be felt in the neck, supraclavicular, or axillary. IMPRESSION 1. Normocytic normochromic anemia. Hemoglobin level 9.7 g/deciliter 2. Acute on chronic renal failure with the patient did not start dialysis yet 3. ThrombocytopeniaPlatelet count 1 36K 4. History of hypertension 5. Diabetes mellitus 6. Lower extremity osteomyelitis Plan 1. Peripheral blood smear showed rouleaux phenomena. SPEP and free light chain was ordered. If there is monoclonal protein we will do bone marrow biopsy. 2. Continue care as per nephrology. It seems there is no plan for hemodialysis at this time. 3. This patient could benefit from Procrit 10,000 units subcu for now maybe Saturday and Saturday and Saturday until hemoglobin is above 10. 4. There was a plan to do colonoscopy but the patient is refusing. 5. This patient have some sign of myelodysplastic syndrome. Maybe this patient will need bone marrow biopsy to be done. Will try to do it as outpatient. 6. If this patient discharged to follow-up with me in 2 weeks Vitals/Labs Vital Signs Date Time Temp Pulse Resp B/P (MAP) Pulse Ox O2 Delivery O2 Flow Rate FiO2 06/25/24 23:01 97.3 69 18 119/70 96 Nasal Cannula 2.0 06/25/24 07:00 28 Laboratory Tests 06/25/24 03:15 Medications Current Medications Sodium Chloride 1,000 ml @ 0 mls/hr ONCE ONCE IV Last administered on 06/16/24at 21:22; Start 06/16/24 at 21:30; Stop 06/16/24 at 21:31; Status DC Piperacillin Sod/ Tazobactam Sod 3.375 gm Q12H IV Last administered on 06/16/24at 21:42; Start 06/16/24 at 21:30; Stop 06/17/24 at 01:03; Status DC Vancomycin HCl 1 gm ONCE ONCE IV; Start 06/16/24 at 21:30; Stop 06/16/24 at 21:34; Status DC Enoxaparin Sodium 80 mg ONCE ONCE SQ Last administered on 06/16/24at 23:15; Start 06/16/24 at 21:30; Stop 06/16/24 at 21:46; Status DC Calcium Gluconate 1 gm/Sodium Chloride 110 ml @ 110 mls/hr ONCE ONCE IV Last administered on 06/16/24at 22:03; Start 06/16/24 at 21:30; Stop 06/16/24 at 22:29; Status DC Albuterol Sulfate 10 mg ONCE ONCE IH Last administered on 06/16/24at 21:53; Start 06/16/24 at 21:30; Stop 06/16/24 at 21:35; Status DC Sodium Polystyrene Sulfonate 15 gm Q2H PO Last administered on 06/16/24at 22:21; Start 06/16/24 at 21:30; Stop 06/16/24 at 23:31; Status DC Albuterol Sulfate 2.5 mg STK-MED ONCE IH; Start 06/16/24 at 21:34; Stop 06/16/24 at 21:34; Status DC Norepinephrine 250 ml @ 0 mls/hr PROTOCOL IV Last administered on 06/17/24at 05:33; Start 06/16/24 at 22:00; Stop 06/22/24 at 07:20; Status DC Vancomycin HCl 250 ml @ 125 mls/hr ONCE ONCE IV Last administered on 06/16/24at 22:21; Start 06/16/24 at 22:00; Stop 06/16/24 at 23:59; Status DC Sodium Zirconium Cyclosilicate 10 gm ONCE ONCE PO Last administered on 06/16/24at 23:13; Start 06/16/24 at 23:00; Stop 06/16/24 at 23:04; Status DC Sodium Chloride 1,000 ml @ 150 mls/hr Q6H40M IV Last administered on 06/17/24at 05:15; Start 06/16/24 at 23:00; Stop 06/17/24 at 09:10; Status DC Thiamine HCl 100 mg DAILY IVP Last administered on 06/25/24at 09:31; Start 06/17/24 at 09:00; Stop 07/17/24 at 08:59 Famotidine 20 mg Q48H IV Last administered on 06/25/24at 00:55; Start 06/17/24 at 01:00; Stop 07/17/24 at 00:59 Insulin Human Regular INSULIN SLIDING SCAL... ACHS SQ Last administered on 06/25/24at 17:30; Start 06/17/24 at 07:30; Stop 07/17/24 at 07:29 Dextrose 50 ml AD PRN IV; Start 06/17/24 at 01:00; Stop 07/17/24 at 00:59 Glucagon 1 mg AD PRN IM; Start 06/17/24 at 01:00; Stop 06/17/24 at 01:01; Status DC Piperacillin Sod/ Tazobactam Sod 3.375 gm Q12H IVPB Last administered on 06/17/24at 02:54; Start 06/17/24 at 01:00; Stop 06/17/24 at 04:00; Status DC Sodium Chloride 50 ml AD IV; Start 06/17/24 at 01:00; Stop 06/17/24 at 01:05; Status DC Vancomycin HCl 1.5 gm ONCE ONCE IV; Start 06/17/24 at 01:00; Stop 06/17/24 at 01:27; Status DC Dextrose 50 ml AD PRN IV; Start 06/17/24 at 01:00; Stop 06/17/24 at 01:01; Status DC Glucagon 1 mg AD PRN IM; Start 06/17/24 at 01:00; Stop 07/17/24 at 00:59 Vancomycin HCl 1 each AD IV; Start 06/17/24 at 01:30; Stop 06/17/24 at 14:01; Status DC Vancomycin HCl 750 mg Q96H IVPB; Start 06/20/24 at 22:00; Stop 06/17/24 at 14:00; Status DC Sodium Chloride 1,368 ml @ 456 mls/hr ONCE ONCE IV Last administered on 06/17/24at 02:55; Start 06/17/24 at 02:00; Stop 06/17/24 at 04:59; Status DC Sodium Bicarbonate 100 meq ONCE ONCE IV Last administered on 06/17/24at 02:54; Start 06/17/24 at 02:00; Stop 06/17/24 at 02:02; Status DC Cefepime HCl 0.25 gm Q24H IVPB Last administered on 06/17/24at 04:58; Start 06/17/24 at 04:00; Stop 06/18/24 at 04:06; Status DC Insulin Human Regular 10 unit ONCE STAT IV Last administered on 06/17/24at 04:28; Start 06/17/24 at 04:05; Stop 06/17/24 at 04:12; Status DC Dextrose 50 ml ONCE STAT IV Last administered on 06/17/24at 04:21; Start 06/17/24 at 04:05; Stop 06/17/24 at 04:12; Status DC Calcium Gluconate 1 gm AD STAT IV Last administered on 06/17/24at 04:21; Start 06/17/24 at 04:05; Stop 06/17/24 at 04:12; Status DC Albuterol Sulfate 10 mg ONCE STAT IH Last administered on 06/17/24at 04:31; Start 06/17/24 at 04:05; Stop 06/17/24 at 04:12; Status DC Metronidazole/ Sodium Chloride 500 mg Q8H IV Last administered on 06/25/24at 21:39; Start 06/17/24 at 05:00; Stop 06/27/24 at 04:59 Sodium Bicarbonate 50 meq ONCE ONCE IV Last administered on 06/17/24at 04:58; Start 06/17/24 at 05:00; Stop 06/17/24 at 05:01; Status DC Sodium Bicarbonate / Dextrose 1,000 ml @ 0 mls/hr Q0M IVP; Start 06/17/24 at 05:00; Stop 06/17/24 at 04:58; Status DC Sodium Bicarbonate 150 meq/Dextrose 1,150 ml @ 100 mls/hr [id number] IVP Last administered on 06/17/24at 21:00; Start 06/17/24 at 05:00; Stop 06/18/24 at 04:44; Status DC Sodium Bicarbonate 100 meq ONCE ONCE IV Last administered on 06/17/24at 10:19; Start 06/17/24 at 10:00; Stop 06/17/24 at 10:01; Status DC Phenylephrine HCl 100 mg/Sodium Chloride 250 ml @ 0 mls/hr AD PRN IV Last administered on 06/18/24at 05:48; Start 06/17/24 at 10:30; Stop 06/22/24 at 07:20; Status DC Magnesium Sulfate 50 ml @ As Directed STK-MED ONCE IV Last administered on 06/17/24at 16:03; Start 06/17/24 at 15:59; Stop 06/17/24 at 16:00; Status DC Pharmacy Profile Note 1 each ONCE MISC Last administered on 06/17/24at 23:31; Start 06/17/24 at 23:00; Stop 06/19/24 at 07:13; Status DC Micafungin Sodium 100 ml @ 100 mls/hr Q24H IV Last administered on 06/25/24at 00:55; Start 06/18/24 at 00:00; Stop 07/18/24 at 00:00 Cefepime HCl 0.25 gm/Sodium Chloride 50 ml @ 100 mls/hr Q24H IVPB Last administered on 06/19/24at 05:26; Start 06/18/24 at 04:30; Stop 06/19/24 at 10:58; Status DC Sodium Bicarbonate 150 meq/Dextrose 1,150 ml @ 50 mls/hr Q23H IVP Last administered on 06/18/24at 20:23; Start 06/18/24 at 08:00; Stop 06/19/24 at 12:24; Status DC Hydrocortisone Sodium Succinate 50 mg Q8H IV Last administered on 06/22/24at 03:12; Start 06/18/24 at 11:30; Stop 06/22/24 at 15:46; Status DC Leptospermum Honey 1 appl DAILY TP Last administered on 06/25/24at 09:36; Start 06/19/24 at 09:00; Stop 07/19/24 at 08:59 Furosemide 40 mg ONCE ONCE IV Last administered on 06/18/24at 21:50; Start 06/18/24 at 20:30; Stop 06/18/24 at 20:34; Status DC Cefepime HCl 1 gm Q24H IVPB Last administered on 06/22/24at 03:12; Start 06/20/24 at 05:00; Stop 06/22/24 at 16:09; Status DC Furosemide 60 mg ONCE ONCE IV Last administered on 06/19/24at 11:55; Start 06/19/24 at 11:30; Stop 06/19/24 at 11:31; Status DC Potassium Chloride 100 ml @ 50 mls/hr ONCE ONCE IV Last administered on 06/19/24at 13:56; Start 06/19/24 at 12:30; Stop 06/19/24 at 14:29; Status DC Epoetin Rylan-epbx 10,000 unit ONCE ONCE SQ Last administered on 06/19/24at 16:45; Start 06/19/24 at 16:00; Stop 06/19/24 at 16:01; Status DC Pharmacy Profile Note 1 each AD MISC; Start 06/19/24 at 15:30; Stop 06/20/24 at 12:49; Status DC Furosemide 40 mg Q8H IV Last administered on 06/20/24at 18:54; Start 06/19/24 at 18:30; Stop 06/20/24 at 18:31; Status DC Potassium Chloride 100 ml @ As Directed STK-MED ONCE IV Last administered on 06/20/24at 12:17; Start 06/20/24 at 12:11; Stop 06/20/24 at 12:11; Status DC Hydromorphone HCl 0.5 mg Q4H PRN IVP Last administered on 06/21/24at 23:50; Start 06/20/24 at 13:00; Stop 06/25/24 at 12:59; Status DC Hydromorphone HCl 0.5 mg STK-MED ONCE .ROUTE; Start 06/20/24 at 12:48; Stop 06/20/24 at 12:52; Status DC Potassium Chloride 100 ml @ 100 mls/hr AD PRN IV Last administered on 06/24/24at 05:57; Start 06/21/24 at 08:00; Stop 07/21/24 at 07:59 Lactated Ringer's 1,000 ml @ 130 mls/hr Q7H42M IV Last administered on 06/25/24at 13:43; Start 06/21/24 at 09:30; Stop 07/21/24 at 09:29 Amlodipine Besylate 5 mg BID PO Last administered on 06/25/24at 21:38; Start 06/22/24 at 09:00; Stop 07/22/24 at 08:59 Hydralazine HCl 25 mg TID PO Last administered on 06/25/24at 21:38; Start 06/22/24 at 09:00; Stop 07/22/24 at 08:59 Potassium Chloride 40 meq BID PO Last administered on 06/22/24at 19:54; Start 06/22/24 at 09:00; Stop 06/22/24 at 21:01; Status DC Hydrocortisone Sodium Succinate 50 mg Q8H6 IV Last administered on 06/25/24at 21:38; Start 06/23/24 at 06:00; Stop 07/23/24 at 05:59 Hydrocortisone Sodium Succinate 50 mg ONCE@1930 IV Last administered on 06/22/24at 19:59; Start 06/22/24 at 19:30; Stop 06/22/24 at 22:30; Status DC Pharmacy Profile Note 1 each ONCE MISC; Start 06/22/24 at 16:30; Stop 06/23/24 at 07:22; Status DC Tigecycline 100 mg/Sodium Chloride 100 ml @ 200 mls/hr ONCE IV Last administered on 06/22/24at 18:51; Start 06/22/24 at 16:30; Stop 06/23/24 at 07:21; Status DC Tigecycline 50 mg/ Sodium Chloride 100 ml @ 200 mls/hr BID@0600,1800 IV Last administered on 06/25/24at 17:28; Start 06/23/24 at 06:00; Stop 06/30/24 at 05:59 Propofol 200 mg STK-MED ONCE IV; Start 06/23/24 at 10:49; Stop 06/23/24 at 10:49; Status DC Propofol 200 mg STK-MED ONCE IV; Start 06/23/24 at 10:49; Stop 06/23/24 at 10:49; Status DC Magnesium Sulfate 50 ml @ 0 mls/hr PROTOCOL PRN IV Last administered on 06/24/24at 05:57; Start 06/23/24 at 11:30; Stop 07/23/24 at 11:29 Potassium Chloride 100 ml @ 100 mls/hr AD PRN IV; Start 06/23/24 at 11:30; Stop 07/23/24 at 11:29 Potassium Chloride 20 meq AD PRN PO; Start 06/23/24 at 11:30; Stop 07/23/24 at 11:29 Potassium Chloride 20 meq AD PRN PO; Start 06/23/24 at 11:30; Stop 07/23/24 at 11:29 Polyethylene Glycol/ Electrolytes 4,000 ml ONCE ONCE PO Last administered on 06/23/24at 12:55; Start 06/23/24 at 14:00; Stop 06/23/24 at 14:01; Status DC Vitamin B Complex/ Vit C/Folic Acid 1 cap DAILY PO Last administered on 06/25/24at 09:31; Start 06/24/24 at 09:00; Stop 07/24/24 at 08:59 Ondansetron HCl 4 mg Q6H PRN IVP Last administered on 06/23/24at 20:10; Start 06/23/24 at 20:30; Stop 07/23/24 at 20:29 Metoprolol Tartrate 5 mg ONCE ONCE IV Last administered on 06/24/24at 09:36; Start 06/24/24 at 09:30; Stop 06/24/24 at 09:31; Status DC Folic Acid 1 mg DAILY PO Last administered on 06/25/24at 09:32; Start 06/25/24 at 09:00; Stop 07/25/24 at 08:59 Epoetin Rylan-epbx 10,000 unit [id number] SQ; Start 06/24/24 at 14:00; Stop 06/24/24 at 13:53; Status DC Epoetin Rylan-epbx 10,000 unit QWEEK SQ Last administered on 06/24/24at 14:37; Start 06/24/24 at 14:00; Stop 07/24/24 at 13:59 Amiodarone HCl 360 mg/Dextrose 200 ml @ 0 mls/hr PROTOCOL IV Last administered on 06/24/24at 15:51; Start 06/24/24 at 14:30; Stop 06/25/24 at 09:16; Status DC Amiodarone HCl 540 mg/Dextrose 300 ml @ 0 mls/hr PROTOCOL IV Last administered on 06/24/24at 20:42; Start 06/24/24 at 21:00; Stop 07/24/24 at 20:59 Apixaban 5 mg BID PO Last administered on 06/25/24at 21:39; Start 06/24/24 at 14:30; Stop 07/24/24 at 14:29 Metoprolol Tartrate 25 mg BID PO Last administered on 06/25/24at 21:38; Start 06/24/24 at 14:30; Stop 07/24/24 at 14:29 Amiodarone HCL/ Dextrose 100 ml @ 0 mls/hr ONCE ONCE IV Last administered on 06/24/24at 15:34; Start 06/24/24 at 16:00; Stop 06/24/24 at 16:01; Status DC Potassium Chloride 40 meq BID PO Last administered on 06/25/24at 21:38; Start 06/25/24 at 09:00; Stop 07/25/24 at 08:59 TOYA MANSFIELD MD Jun 25, 2024 23:37
[2024-06-26] VITALS (8 sets, daily range): BP systolic 118–132; BP diastolic 63–78; PULSE 61–85; RESP 18–20; TEMP 97.5–98.6; O2SAT 96–98
[2024-06-26 03:47] LABS: BASOPHILS # (AUTO) 0.01 K/uL (0.00-0.20); BASOPHILS % (AUTO) 0.1 % (0.0-5.0); HEMATOCRIT 27.6 % (42-54); IMMATURE GRANULOCYTE ABSOLUTE 0.12 K/uL (0-1); LYMPHOCYTES # (AUTO) 0.6 K/uL (1.0-4.8); LYMPHOCYTES % (AUTO) 4.9 % (21.0-51.0); MEAN CORPUSCULAR HGB CONC 35.1 g/dL (32.0-36.0); MEAN CORPUSCULAR VOLUME 85.4 fL (79-99); MONOCYTES # (AUTO) 0.8 K/uL (0.1-1.0); NEUTROPHILS # (AUTO) 11.5 K/uL (1.8-7.7); NEUTROPHILS % (AUTO) 88.1 % (40.0-77.0); NUCLEATED RED BLOOD CELLS 0.2 % (0.0-0.19); PLATELET COUNT (AUTO) 190 K/uL (130-400); RED BLOOD CELL COUNT(AUTO) 3.23 MIL/uL (4.50-6.20); RED CELL DISTRIBUTION WIDTH 14.9 % (11.0-15.5); WHITE BLOOD COUNT (AUTO) 13.1 K/uL (4.8-10.8)
[2024-06-26 04:31] LABS: ALBUMIN 2.2 g/dL (3.5-5.0); BILIRUBIN,TOTAL 0.5 mg/dL (0.2-1.0); CREATININE 5.9 mg/dL (0.5-1.3); MAGNESIUM 1.9 mg/dL (1.80-2.40); PHOSPHORUS 6.6 mg/dL (2.5-4.9); POTASSIUM 3.6 mmol/L (3.5-5.1); TOTAL PROTEIN, SERUM 5.9 g/dL (6.0-8.3)
--- NOTE | 2024-06-26 09:30 | PN ---
GASTROENTEROLOGY PROGRESS NOTE Date of Visit: Jun 26, 2024 Time of Visit: 09:30 Events / Notes: No acute events overnight. Patient had EGD revealing mucosal changes suspicious for gastritis. Denies fever, chills, abdominal pain, N/V, hematemesis, bloating, constipation, diarrhea, melena or hematochezia. Review of Systems: CONSTITUTIONAL: No malaise or change in sensation of wellbeing. ENMT: No rhinorrhea, otorrhea, sinus pain, ear ache. CARDIOVASCULAR: No angina, palpitations, orthopnea or paroxysmal dyspnea. RESPIRATORY: No SOB. GASTROINTESTINAL: No abdominal pain, nausea, vomiting, diarrhea, hematemesis, melena or change in the patient's habitual bowel movements consistency/number. GENITOURINARY: No dysuria, hematuria or change in bladder continence. MUSCULOSKELETAL: No new muscle pain or decrease in muscular strength. No new joint swelling, redness or tenderness. SKIN: No new rash. Physical Exam: GEN: Awake, alert, oriented in person, time and place, and in no acute distress. HEENT: No sinus tenderness. Tympanic membranes were not examined. No rhinorrhea. Oral pharyngeal mucosa is pink, moist and within normal limits. Neck is supple with no cervical lymphadenopathy, thyromegaly or JVD. CHEST: Inspection, palpation and percussion of the chest were unremarkable. Lung auscultation revealed normal breath sounds bilaterally. CARDIAC: PMI is within normal limits. Heart sounds are regular. Normal S1, S2. No gallop or murmur. ABD: Soft, non-tender and not distended. No peritoneal signs on palpation. No organomegaly. Normal bowel sounds. EXT: No cyanosis or clubbing. No edema. SKIN: Intact. No rashes. JOINTS: No evidence of synovitis or acute arthritis. NEURO: Alert and oriented to name, place and person. Cranial nerve examination is unremarkable. No focal motor deficits. Normal speech. Gait is normal. Strength is normal. Vital Signs (last 8hr) Date Time Temp Pulse Resp B/P (MAP) Pulse Ox O2 Delivery O2 Flow Rate FiO2 06/26/24 07:59 98.4 61 20 125/69 96 Nasal Cannula 2.0 06/26/24 03:15 97.5 84 18 125/72 92 Nasal Cannula 2.0 Laboratory: [ ] Laboratory: Test 06/26/24 06:07 06/26/24 03:21 06/24/24 19:37 Range/Units Whole Blood Glucose 160 H 70-110 MG/DL White Blood Count 13.1 H 4.8-10.8 K/uL Red Blood Count 3.23 L 4.50-6.20 MIL/uL Hemoglobin 9.7 L 14.0-18.0 g/dL Hematocrit 27.6 L 42-54 % Mean Corpuscular Volume 85.4 79-99 fL Mean Corpuscular Hemoglobin 30.0 27.0-33.0 pg Mean Corpuscular Hemoglobin Concent 35.1 32.0-36.0 g/dL Red Cell Distribution Width 14.9 11.0-15.5 % Platelet Count 190 # 130-400 K/uL Mean Platelet Volume 11.8 H 7.5-10.5 fL Immature Granulocyte % (Auto) 0.9 0-1 % Neutrophils (%) (Auto) 88.1 H 40.0-77.0 % Lymphocytes (%) (Auto) 4.9 L 21.0-51.0 % Monocytes (%) (Auto) 6.0 3.0-13.0 % Eosinophils (%) (Auto) 0.0 0.0-8.0 % Basophils (%) (Auto) 0.1 0.0-5.0 % Neutrophils # (Auto) 11.5 H 1.8-7.7 K/uL Lymphocytes # (Auto) 0.6 L 1.0-4.8 K/uL Monocytes # (Auto) 0.8 0.1-1.0 K/uL Eosinophils # (Auto) 0.00 0.00-0.70 K/uL Basophils # (Auto) 0.01 0.00-0.20 K/uL Absolute Immature Granulocyte (auto 0.12 0-1 K/uL Nucleated Red Blood Cells 0.2 H 0.0-0.19 % Sodium Level 139 136-145 mmol/L Potassium Level 3.6 3.5-5.1 mmol/L Chloride Level 98 L 101-111 mmol/L Carbon Dioxide Level 27 21-32 mmol/L Blood Urea Nitrogen 117 *H 7-18 mg/dL Creatinine 5.9 H 0.5-1.3 mg/dL Glomerular Filtration Rate Calc 10 >90 mL/min Random Glucose 181 H 70-105 mg/dL Total Calcium 7.8 L 8.5-10.1 mg/dL Phosphorus Level 6.6 H 2.5-4.9 mg/dL Magnesium Level 1.90 1.80-2.40 mg/dL Total Bilirubin 0.5 0.2-1.0 mg/dL Aspartate Amino Transf (AST/SGOT) 21 10-37 U/L Alanine Aminotransferase (ALT/SGPT) 16 12-78 U/L Alkaline Phosphatase 126 50-136 U/L Total Protein 5.9 L 6.0-8.3 g/dL Albumin 2.2 L 3.5-5.0 g/dL Bedside Glucose Comment Notified Nurse Current Medications Medications (Trade) Dose Ordered Sig/Roderick Route PRN Reason Start Time Stop Time Status Last Admin Dose Admin Albuterol Sulfate (Proventil 0.083% 2.5mg/3ml) 10 mg ONCE STAT IH 06/17/24 04:05 06/17/24 04:12 DC 06/17/24 04:31 10 MG Amiodarone HCl 360 mg/Dextrose 200 ml @ 0 mls/hr PROTOCOL IV 06/24/24 14:30 06/25/24 09:16 DC 06/24/24 15:51 33.33 MLS/HR Amiodarone HCl 540 mg/Dextrose 300 ml @ 0 mls/hr PROTOCOL IV 06/24/24 21:00 07/24/24 20:59 06/24/24 20:42 16.7 MLS/HR Amlodipine Besylate (NorvASC 5MG TAB) 5 mg BID PO 06/22/24 09:00 07/22/24 08:59 06/25/24 21:38 5 MG Apixaban (EliquIS) 5 mg BID PO 06/24/24 14:30 07/24/24 14:29 06/25/24 21:39 5 MG Calcium Gluconate (Calcium Gluc 1gm Vial) 1 gm AD STAT IV 06/17/24 04:05 06/17/24 04:12 DC 06/17/24 04:21 1 GM Cefepime HCl (MAXipime 1 GM vial) 0.25 gm Q24H IVPB 06/17/24 04:00 06/18/24 04:06 DC 06/17/24 04:58 0.25 GM Cefepime HCl (MAXipime 1 GM vial) 1 gm Q24H IVPB 06/20/24 05:00 06/22/24 16:09 DC 06/22/24 03:12 1 GM Cefepime HCl 0.25 gm/Sodium Chloride 50 ml @ 100 mls/hr Q24H IVPB 06/18/24 04:30 06/19/24 10:58 DC 06/19/24 05:26 100 MLS/HR Dextrose (D50w) 50 ml AD PRN IV HYPOGLYCEMIA PROTOCOL 06/17/24 01:00 06/17/24 01:01 DC Dextrose (D50w) 50 ml AD PRN IV HYPOGLYCEMIA PROTOCOL 06/17/24 01:00 07/17/24 00:59 Dextrose (D50w) 50 ml ONCE STAT IV 06/17/24 04:05 06/17/24 04:12 DC 06/17/24 04:21 50 ML Epoetin Rylan-epbx (Retacrit) 10,000 unit [id number] SQ 06/24/24 14:00 06/24/24 13:53 DC Epoetin Rylan-epbx (Retacrit) 10,000 unit QWEEK SQ 06/24/24 14:00 07/24/24 13:59 06/24/24 14:37 10,000 UNIT Famotidine (Pepcid 20mg Vial) 20 mg Q48H IV 06/17/24 01:00 07/17/24 00:59 06/25/24 00:55 20 MG Folic Acid (FOLic ACID 1 MG TABLET) 1 mg DAILY PO 06/25/24 09:00 07/25/24 08:59 06/25/24 09:32 1 MG Furosemide (LASix 40MG VIAL) 40 mg Q8H IV 06/19/24 18:30 06/20/24 18:31 DC 06/20/24 18:54 40 MG Glucagon (Glucagon 1mg Kit) 1 mg AD PRN IM HYPOGLYCEMIA PROTOCOL 06/17/24 01:00 06/17/24 01:01 DC Glucagon (Glucagon 1mg Kit) 1 mg AD PRN IM HYPOGLYCEMIA PROTOCOL 06/17/24 01:00 07/17/24 00:59 Hydralazine HCl ([id number] TAB) 25 mg TID PO 06/22/24 09:00 07/22/24 08:59 06/25/24 21:38 25 MG Hydrocortisone Sodium Succinate (Solu-corTEF 100MG) 50 mg ONCE@1930 IV 06/22/24 19:30 06/22/24 22:30 DC 06/22/24 19:59 50 MG Hydrocortisone Sodium Succinate (Solu-corTEF 100MG) 50 mg Q8H IV 06/18/24 11:30 06/22/24 15:46 DC 06/22/24 03:12 50 MG Hydrocortisone Sodium Succinate (Solu-corTEF 100MG) 50 mg Q8H6 IV 06/23/24 06:00 07/23/24 05:59 06/26/24 05:14 50 MG Hydromorphone HCl (DiLAUDid 0.5MG INJ) 0.5 mg Q4H PRN IVP SEVERE PAIN (7-10) 06/20/24 13:00 06/25/24 12:59 DC 06/21/24 23:50 0.5 MG Insulin Human Regular (humuLIN R 100 UNIT/ML 3ML) 10 unit ONCE STAT IV 06/17/24 04:05 06/17/24 04:12 DC 06/17/24 04:28 10 UNIT Insulin Human Regular (humuLIN R 100 UNIT/ML 3ML) INSULIN SLIDING SCAL... ACHS SQ 06/17/24 07:30 07/17/24 07:29 06/25/24 17:30 3 UNIT Lactated Ringer's 1,000 ml @ 130 mls/hr Q7H42M IV 06/21/24 09:30 07/21/24 09:29 06/26/24 05:15 130 MLS/HR [facility]permum [facility] 1 appl DAILY TP 06/19/24 09:00 07/19/24 08:59 06/25/24 09:36 1 APPL Magnesium Sulfate 50 ml @ 0 mls/hr PROTOCOL PRN IV MAGNESIUM PROTOCOL 06/23/24 11:30 07/23/24 11:29 06/24/24 05:57 25 MLS/HR Metoprolol Tartrate (loprESSOR) 25 mg BID PO 06/24/24 14:30 07/24/24 14:29 06/25/24 21:38 25 MG Metronidazole/ Sodium Chloride (flaGYL) 500 mg Q8H IV 06/17/24 05:00 06/27/24 04:59 06/26/24 05:14 500 MG Micafungin Sodium 100 ml @ 100 mls/hr Q24H IV 06/18/24 00:00 07/18/24 00:00 06/25/24 23:57 100 MLS/HR Norepinephrine 250 ml @ 0 mls/hr PROTOCOL IV 06/16/24 22:00 06/22/24 07:20 DC 06/17/24 05:33 24.5 MLS/HR Ondansetron HCl (zoFRAN 4MG INJ) 4 mg Q6H PRN IVP NAUSEA/VOMITING 06/23/24 20:30 07/23/24 20:29 06/23/24 20:10 4 MG Pharmacy Profile Note (Lace Assessment) 1 each AD MISC 06/19/24 15:30 06/20/24 12:49 DC Pharmacy Profile Note (Pharmacy Communication) 1 each ONCE MISC 06/17/24 23:00 06/19/24 07:13 DC 06/17/24 23:31 1 EACH Pharmacy Profile Note (Pharmacy Communication) 1 each ONCE MISC 06/22/24 16:30 06/23/24 07:22 DC Phenylephrine HCl 100 mg/Sodium Chloride 250 ml @ 0 mls/hr AD PRN IV TITRATE 06/17/24 10:30 06/22/24 07:20 DC 06/18/24 05:48 27 MLS/HR Piperacillin Sod/ Tazobactam Sod (Zosyn 3.375gm+NS 50ml) 3.375 gm Q12H IV 06/16/24 21:30 06/17/24 01:03 DC 06/16/24 21:42 3.375 GM Piperacillin Sod/ Tazobactam Sod (Zosyn 3.375gm+NS 50ml) 3.375 gm Q12H IVPB 06/17/24 01:00 06/17/24 04:00 DC 06/17/24 02:54 3.375 GM Potassium Chloride 100 ml @ 100 mls/hr AD PRN IV POTASSIUM PROTOCOL 06/21/24 08:00 07/21/24 07:59 06/24/24 05:57 100 MLS/HR Potassium Chloride 100 ml @ 100 mls/hr AD PRN IV POTASSIUM PROTOCOL 06/23/24 11:30 07/23/24 11:29 Potassium Chloride (K-Dur/Klor-Con 20meq) 20 meq AD PRN PO POTASSIUM PROTOCOL 06/23/24 11:30 07/23/24 11:29 Potassium Chloride (K-Dur/Klor-Con 20meq) 40 meq BID PO 06/22/24 09:00 06/22/24 21:01 DC 06/22/24 19:54 40 MEQ Potassium Chloride (K-Dur/Klor-Con 20meq) 40 meq BID PO 06/25/24 09:00 07/25/24 08:59 06/25/24 21:38 40 MEQ Potassium Chloride (KCl 10% Elixir 20meq/15ml) 20 meq AD PRN PO POTASSIUM PROTOCOL 06/23/24 11:30 07/23/24 11:29 Sodium Bicarbonate / Dextrose 1,000 ml @ 0 mls/hr Q0M IVP 06/17/24 05:00 06/17/24 04:58 DC Sodium Bicarbonate 150 meq/Dextrose 1,150 ml @ 50 mls/hr Q23H IVP 06/18/24 08:00 06/19/24 12:24 DC 06/18/24 20:23 100 MLS/HR Sodium Bicarbonate 150 meq/Dextrose 1,150 ml @ 100 mls/hr [id number] IVP 06/17/24 05:00 06/18/24 04:44 DC 06/17/24 21:00 100 MLS/HR Sodium Polystyrene Sulfonate (kayEXALate 15 GM/60 ML) 15 gm Q2H PO 06/16/24 21:30 06/16/24 23:31 DC 06/16/24 22:21 15 GM Sodium Chloride 1,000 ml @ 150 mls/hr Q6H40M IV 06/16/24 23:00 06/17/24 09:10 DC 06/17/24 05:15 150 MLS/HR Sodium Chloride (NS 50ml) 50 ml AD IV 06/17/24 01:00 06/17/24 01:05 DC Thiamine HCl (Vitamin B-1) 100 mg DAILY IVP 06/17/24 09:00 07/17/24 08:59 06/25/24 09:31 100 MG Tigecycline 100 mg/Sodium Chloride 100 ml @ 200 mls/hr ONCE IV 06/22/24 16:30 06/23/24 07:21 DC 06/22/24 18:51 200 MLS/HR Tigecycline 50 mg/ Sodium Chloride 100 ml @ 200 mls/hr BID@0600,1800 IV 06/23/24 06:00 06/30/24 05:59 06/26/24 05:14 200 MLS/HR Vancomycin HCl (Vancomycin 750mg) 750 mg Q96H IVPB 06/20/24 22:00 06/17/24 14:00 DC Vancomycin HCl (Vancomycin Protocol) 1 each AD IV 06/17/24 01:30 06/17/24 14:01 DC Vitamin B Complex/ Vit C/Folic Acid (Nephrovite Tablet) 1 cap DAILY PO 06/24/24 09:00 07/24/24 08:59 06/25/24 09:31 1 CAP Diagnostics / Radiology: [COPY/PASTE HERE IF NO REPORTS PLEASE DELETE SECTION] Assessment: Gastritis Acute blood loss anemia HTN DM Plan: Patient defers Colonoscopy Continue GI prophylaxis Advance diet as tolerated Avoid NSAIDs Antireflux measures Monitor H&H and transfuse as needed Call with questions, concerns or change in clinical status Patient to follow-up at clinic post discharge Thank you for this consult ANGEL B[employer]DEN [employer] Jun 26, 2024 09:30
--- NOTE | 2024-06-26 14:05 | PN ---
[facility] PROGRESS NOTE Date Patient Seen: Jun 26, 2024 Time of Visit: 14:05 Supervising Physician: Dr. Evan Patel Primary Care Physician: [None-recently relocated from [place]] Outpatient Specialists: [ ] Inpatient Consults: [facility] team, nephro: Dr. Dowd, cardio: Dr. Bae] PROBLEM LIST: Septic shock, requiring pressor-POA Acute encephalopathy; likely multifactorial infectious, uremic and toxic metabolic-POA Severe metabolic acidosis-POA Acute renal failure, severe-POA Uremia-POA Severe hyperkalemia-POA Resolved Thrombocytopenia-POA Severe lactic acidosis-POA NSTEMI, rule-out demand ischemia vs true cardiac etiology-POA INTERVAL HISTORY: Patient evaluated at bedside, AAO x3, patient currently on 2 L nasal cannula. He continues to endorse loose stools, patient continues on Lomotil at this time. He is currently on 2 L nasal cannula, white count today is 13.1 and hemoglobin is 9.7. Patient continues on Flagyl, Zosyn, micafungin for fungemia. Overall patient's prognosis remains poor. He is currently pending placement for continued IV antibiotics. Patient was started on IV amiodarone due to recurrent episode of AFib with RVR. Morning chest x-ray Remains on O2 Very weak Severely deconditioned poor appetite no nausea or vomiting REVIEW OF SYSTEMS: Unable to perform 12 point ROS due to patient's encephalopathy. PHYSICAL EXAM: GENERAL: Awake, Alert. Generally weak HEENT: Normocephalic, atraumatic, dry mucosa NECK: Supple, no JVD, trachea midline LUNGS: Clear breath sounds bilaterally. No wheezes HEART: Regular rate and rhythm. Normal S1 and S2, positive murmurs , tachycardic ABD: Abdomen soft, nontender. Bowel sounds present EXT: No clubbing, cyanosis, or edema, bilateral feet wound with toe amputations with dressing CDI NEURO: Deferred Vital Signs (last 8hr) Date Time Temp Pulse Resp B/P (MAP) Pulse Ox O2 Delivery O2 Flow Rate FiO2 06/26/24 12:00 97.9 65 20 120/78 97 Nasal Cannula 2.0 06/26/24 07:59 98.4 61 20 125/69 96 Nasal Cannula 2.0 LABS: Hematology Labs: Test 06/26/24 03:21 Range/Units White Blood Count 13.1 H 4.8-10.8 K/uL Red Blood Count 3.23 L 4.50-6.20 MIL/uL Hemoglobin 9.7 L 14.0-18.0 g/dL Hematocrit 27.6 L 42-54 % Mean Corpuscular Volume 85.4 79-99 fL Mean Corpuscular Hemoglobin 30.0 27.0-33.0 pg Mean Corpuscular Hemoglobin Concent 35.1 32.0-36.0 g/dL Red Cell Distribution Width 14.9 11.0-15.5 % Platelet Count 190 # 130-400 K/uL Mean Platelet Volume 11.8 H 7.5-10.5 fL Immature Granulocyte % (Auto) 0.9 0-1 % Neutrophils (%) (Auto) 88.1 H 40.0-77.0 % Lymphocytes (%) (Auto) 4.9 L 21.0-51.0 % Monocytes (%) (Auto) 6.0 3.0-13.0 % Eosinophils (%) (Auto) 0.0 0.0-8.0 % Basophils (%) (Auto) 0.1 0.0-5.0 % Neutrophils # (Auto) 11.5 H 1.8-7.7 K/uL Lymphocytes # (Auto) 0.6 L 1.0-4.8 K/uL Monocytes # (Auto) 0.8 0.1-1.0 K/uL Eosinophils # (Auto) 0.00 0.00-0.70 K/uL Basophils # (Auto) 0.01 0.00-0.20 K/uL Absolute Immature Granulocyte (auto 0.12 0-1 K/uL Nucleated Red Blood Cells 0.2 H 0.0-0.19 % Chemistry Labs: Test 06/26/24 11:48 06/26/24 03:21 06/24/24 19:37 Range/Units Whole Blood Glucose 217 H 70-110 MG/DL Sodium Level 139 136-145 mmol/L Potassium Level 3.6 3.5-5.1 mmol/L Chloride Level 98 L 101-111 mmol/L Carbon Dioxide Level 27 21-32 mmol/L Blood Urea Nitrogen 117 *H 7-18 mg/dL Creatinine 5.9 H 0.5-1.3 mg/dL Glomerular Filtration Rate Calc 10 >90 mL/min Random Glucose 181 H 70-105 mg/dL Total Calcium 7.8 L 8.5-10.1 mg/dL Phosphorus Level 6.6 H 2.5-4.9 mg/dL Magnesium Level 1.90 1.80-2.40 mg/dL Total Bilirubin 0.5 0.2-1.0 mg/dL Aspartate Amino Transf (AST/SGOT) 21 10-37 U/L Alanine Aminotransferase (ALT/SGPT) 16 12-78 U/L Alkaline Phosphatase 126 50-136 U/L Total Protein 5.9 L 6.0-8.3 g/dL Albumin 2.2 L 3.5-5.0 g/dL Bedside Glucose Comment Notified Nurse DIAGNOSTICS / RADIOLOGY RESULTS: [ ] PLAN Disposition as per primary case management consult for disposition continue on supplemental oxygen aspiration precautions nutritional support NEURO: Minimize central acting medications as possible. Maintain fall precautions, adequate lighting during the day PULMONARY: Supplemental 02 as needed. Maintain aspiration precautions at all times CARDIOVASCULAR: Follow hemodynamics. Vital signs per facility protocol GI & NUTRITION: Continue with nutritional support. Continue stool softeners and laxatives as needed. KIDNEYS & ELECTROLYTES: Strict monitoring of intake, output and overall fluid balance. Avoid nephrotoxic medications to the extent possible. Medications to be dosed according to renal function. Monitor electrolytes and replace as needed ENDOCRINE: Maintain blood glucose between 100-180 at all times. Hypoglycemia protocol in place INFECTIOUS DISEASE: Trend temperature, WBC and procalcitonin level Follow cultures, deescalate antibiotics as soon as possible. Panculture if new onset fever ONCOLOGY/HEMATOLOGY/COAGULATION: Monitor for s/s of bleeding Monitor hemoglobin, coagulation studies as needed SKIN: Pressure ulcer prevention per facility protocol Specialty mattress ORTHO/REHAB: Continue PT/OT Prophylaxis: Continue GI and DVT prophylaxis Code Status: Full Resuscitation Disposition: as per PCP Total critical care time: 35 minutes. CAIO TRIVEDI Jun 26, 2024 14:05
[2024-06-26] MEDS ORDERED: CALCIUM CARB 500MG CHEW TAB PO SCH (15:30)
[2024-06-26] MEDS ORDERED: CALCIUM CARB 500MG CHEW TAB PO ONE (16:00)
--- NOTE | 2024-06-26 16:01 | PN ---
69-year-old male with past medical history of diabetes mellitus type 2, hypertension, ESRD (baseline Cr ~2.3, now up to 7.2�9.9, GFR ~5�8), osteomyelitis with history of multiple toe amputations, recent septic shock (now off vasopressors), and ongoing broad-spectrum antibiotic therapy. Patient is a poor historian and resides in a nursing facility. Per family, he was doing relatively well until ~1 week ago when he had decreased oral intake and developed progressive lethargy. He had a recent COVID infection three weeks ago, now resolved. He presented with acute encephalopathy, hyperkalemia, metabolic acidosis, and severe thrombocytopenia (initially 32K, now improving to 78K). Notable labs include chronic normocytic anemia (Hgb trending 6.1�9.0), thrombocytopenia (platelets aren 28K, now 78K), and pancytopenia picture. Peripheral smear shows hypochromia, rouleaux formation, hypersegmented neutrophils, no schistocytes or helmet cells. Reticulocyte count is low (0.18%), immature reticulocytes elevated (2%). Iron saturation is high (79.7%), with low TIBC (94), suggesting anemia of chronic disease or myelodysplasia. Platelet count today is 1 90K PHYSICAL EXAM GENERAL: No acute respiratory distress. VITAL SIGNS: Reviewed and stable. HEENT: The sclerae are clear. The pupils are equal and reactive to light. The oropharyngeal cavity is within normal limits. NECK: Supple without lymphadenopathy. CHEST: Lung is clear bilaterally there is no wheezing or crackles. HEART: Sounds are regular and rhythmic. ABDOMEN: No guarding or rigidity. Bowel sounds positive. NEUROLOGICAL: The patient is alert and oriented. No focal deficits. Patient with generalized weakness. LYMPH NODES: There is no lymphadenopathy could be felt in the neck, supraclavicular, or axillary. IMPRESSION 1. Normocytic normochromic anemia. Hemoglobin level 9.7 g/deciliter 2. Acute on chronic renal failure with the patient did not start dialysis yet 3. ThrombocytopeniaPlatelet count 190K 4. History of hypertension 5. Diabetes mellitus 6. Lower extremity osteomyelitis Plan 1. Peripheral blood smear showed rouleaux phenomena. SPEP and free light chain was ordered. If there is monoclonal protein we will do bone marrow biopsy. 2. Continue care as per nephrology. It seems there is no plan for hemodialysis at this time. 3. This patient could benefit from Procrit 10,000 units subcu for now maybe Saturday and Saturday and Saturday until hemoglobin is above 10. 4. Colonoscopy actually was done on this patient. Will follow-up with the result 5. This patient have some sign of myelodysplastic syndrome. Maybe this patient will need bone marrow biopsy to be done. Will try to do it as outpatient. 6. If this patient discharged to follow-up with me in 2 weeks Vitals/Labs Vital Signs Date Time Temp Pulse Resp B/P (MAP) Pulse Ox O2 Delivery O2 Flow Rate FiO2 06/26/24 12:00 97.9 65 20 120/78 97 Nasal Cannula 2.0 06/25/24 20:00 28 Laboratory Tests 06/26/24 03:21 Medications Current Medications Sodium Chloride 1,000 ml @ 0 mls/hr ONCE ONCE IV Last administered on 06/16/24at 21:22; Start 06/16/24 at 21:30; Stop 06/16/24 at 21:31; Status DC Piperacillin Sod/ Tazobactam Sod 3.375 gm Q12H IV Last administered on 06/16/24at 21:42; Start 06/16/24 at 21:30; Stop 06/17/24 at 01:03; Status DC Vancomycin HCl 1 gm ONCE ONCE IV; Start 06/16/24 at 21:30; Stop 06/16/24 at 21:34; Status DC Enoxaparin Sodium 80 mg ONCE ONCE SQ Last administered on 06/16/24at 23:15; Start 06/16/24 at 21:30; Stop 06/16/24 at 21:46; Status DC Calcium Gluconate 1 gm/Sodium Chloride 110 ml @ 110 mls/hr ONCE ONCE IV Last administered on 06/16/24at 22:03; Start 06/16/24 at 21:30; Stop 06/16/24 at 22:29; Status DC Albuterol Sulfate 10 mg ONCE ONCE IH Last administered on 06/16/24at 21:53; Start 06/16/24 at 21:30; Stop 06/16/24 at 21:35; Status DC Sodium Polystyrene Sulfonate 15 gm Q2H PO Last administered on 06/16/24at 22:21; Start 06/16/24 at 21:30; Stop 06/16/24 at 23:31; Status DC Albuterol Sulfate 2.5 mg STK-MED ONCE IH; Start 06/16/24 at 21:34; Stop 06/16/24 at 21:34; Status DC Norepinephrine 250 ml @ 0 mls/hr PROTOCOL IV Last administered on 06/17/24at 05:33; Start 06/16/24 at 22:00; Stop 06/22/24 at 07:20; Status DC Vancomycin HCl 250 ml @ 125 mls/hr ONCE ONCE IV Last administered on 06/16/24at 22:21; Start 06/16/24 at 22:00; Stop 06/16/24 at 23:59; Status DC Sodium Zirconium Cyclosilicate 10 gm ONCE ONCE PO Last administered on 06/16/24at 23:13; Start 06/16/24 at 23:00; Stop 06/16/24 at 23:04; Status DC Sodium Chloride 1,000 ml @ 150 mls/hr Q6H40M IV Last administered on 06/17/24at 05:15; Start 06/16/24 at 23:00; Stop 06/17/24 at 09:10; Status DC Thiamine HCl 100 mg DAILY IVP Last administered on 06/26/24at 15:06; Start 06/17/24 at 09:00; Stop 07/17/24 at 08:59 Famotidine 20 mg Q48H IV Last administered on 06/25/24at 00:55; Start 06/17/24 at 01:00; Stop 07/17/24 at 00:59 Insulin Human Regular INSULIN SLIDING SCAL... ACHS SQ Last administered on 06/26/24at 12:26; Start 06/17/24 at 07:30; Stop 07/17/24 at 07:29 Dextrose 50 ml AD PRN IV; Start 06/17/24 at 01:00; Stop 07/17/24 at 00:59 Glucagon 1 mg AD PRN IM; Start 06/17/24 at 01:00; Stop 06/17/24 at 01:01; Status DC Piperacillin Sod/ Tazobactam Sod 3.375 gm Q12H IVPB Last administered on 06/17/24at 02:54; Start 06/17/24 at 01:00; Stop 06/17/24 at 04:00; Status DC Sodium Chloride 50 ml AD IV; Start 06/17/24 at 01:00; Stop 06/17/24 at 01:05; Status DC Vancomycin HCl 1.5 gm ONCE ONCE IV; Start 06/17/24 at 01:00; Stop 06/17/24 at 01:27; Status DC Dextrose 50 ml AD PRN IV; Start 06/17/24 at 01:00; Stop 06/17/24 at 01:01; Status DC Glucagon 1 mg AD PRN IM; Start 06/17/24 at 01:00; Stop 07/17/24 at 00:59 Vancomycin HCl 1 each AD IV; Start 06/17/24 at 01:30; Stop 06/17/24 at 14:01; Status DC Vancomycin HCl 750 mg Q96H IVPB; Start 06/20/24 at 22:00; Stop 06/17/24 at 14:00; Status DC Sodium Chloride 1,368 ml @ 456 mls/hr ONCE ONCE IV Last administered on 06/17/24at 02:55; Start 06/17/24 at 02:00; Stop 06/17/24 at 04:59; Status DC Sodium Bicarbonate 100 meq ONCE ONCE IV Last administered on 06/17/24at 02:54; Start 06/17/24 at 02:00; Stop 06/17/24 at 02:02; Status DC Cefepime HCl 0.25 gm Q24H IVPB Last administered on 06/17/24at 04:58; Start 06/17/24 at 04:00; Stop 06/18/24 at 04:06; Status DC Insulin Human Regular 10 unit ONCE STAT IV Last administered on 06/17/24at 04:28; Start 06/17/24 at 04:05; Stop 06/17/24 at 04:12; Status DC Dextrose 50 ml ONCE STAT IV Last administered on 06/17/24at 04:21; Start 06/17/24 at 04:05; Stop 06/17/24 at 04:12; Status DC Calcium Gluconate 1 gm AD STAT IV Last administered on 06/17/24at 04:21; Start 06/17/24 at 04:05; Stop 06/17/24 at 04:12; Status DC Albuterol Sulfate 10 mg ONCE STAT IH Last administered on 06/17/24at 04:31; Start 06/17/24 at 04:05; Stop 06/17/24 at 04:12; Status DC Metronidazole/ Sodium Chloride 500 mg Q8H IV Last administered on 06/26/24at 15:05; Start 06/17/24 at 05:00; Stop 06/27/24 at 04:59 Sodium Bicarbonate 50 meq ONCE ONCE IV Last administered on 06/17/24at 04:58; Start 06/17/24 at 05:00; Stop 06/17/24 at 05:01; Status DC Sodium Bicarbonate / Dextrose 1,000 ml @ 0 mls/hr Q0M IVP; Start 06/17/24 at 05:00; Stop 06/17/24 at 04:58; Status DC Sodium Bicarbonate 150 meq/Dextrose 1,150 ml @ 100 mls/hr [id number] IVP Last administered on 06/17/24at 21:00; Start 06/17/24 at 05:00; Stop 06/18/24 at 04:44; Status DC Sodium Bicarbonate 100 meq ONCE ONCE IV Last administered on 06/17/24at 10:19; Start 06/17/24 at 10:00; Stop 06/17/24 at 10:01; Status DC Phenylephrine HCl 100 mg/Sodium Chloride 250 ml @ 0 mls/hr AD PRN IV Last administered on 06/18/24at 05:48; Start 06/17/24 at 10:30; Stop 06/22/24 at 07:20; Status DC Magnesium Sulfate 50 ml @ As Directed STK-MED ONCE IV Last administered on 06/17/24at 16:03; Start 06/17/24 at 15:59; Stop 06/17/24 at 16:00; Status DC Pharmacy Profile Note 1 each ONCE MISC Last administered on 06/17/24at 23:31; Start 06/17/24 at 23:00; Stop 06/19/24 at 07:13; Status DC Micafungin Sodium 100 ml @ 100 mls/hr Q24H IV Last administered on 06/25/24at 23:57; Start 06/18/24 at 00:00; Stop 07/18/24 at 00:00 Cefepime HCl 0.25 gm/Sodium Chloride 50 ml @ 100 mls/hr Q24H IVPB Last administered on 06/19/24at 05:26; Start 06/18/24 at 04:30; Stop 06/19/24 at 10:58; Status DC Sodium Bicarbonate 150 meq/Dextrose 1,150 ml @ 50 mls/hr Q23H IVP Last administered on 06/18/24at 20:23; Start 06/18/24 at 08:00; Stop 06/19/24 at 12:24; Status DC Hydrocortisone Sodium Succinate 50 mg Q8H IV Last administered on 06/22/24at 03:12; Start 06/18/24 at 11:30; Stop 06/22/24 at 15:46; Status DC Leptospermum Honey 1 appl DAILY TP Last administered on 06/26/24at 10:14; Start 06/19/24 at 09:00; Stop 07/19/24 at 08:59 Furosemide 40 mg ONCE ONCE IV Last administered on 06/18/24at 21:50; Start 06/18/24 at 20:30; Stop 06/18/24 at 20:34; Status DC Cefepime HCl 1 gm Q24H IVPB Last administered on 06/22/24at 03:12; Start 06/20/24 at 05:00; Stop 06/22/24 at 16:09; Status DC Furosemide 60 mg ONCE ONCE IV Last administered on 06/19/24at 11:55; Start 06/19/24 at 11:30; Stop 06/19/24 at 11:31; Status DC Potassium Chloride 100 ml @ 50 mls/hr ONCE ONCE IV Last administered on 06/19/24at 13:56; Start 06/19/24 at 12:30; Stop 06/19/24 at 14:29; Status DC Epoetin Rylan-epbx 10,000 unit ONCE ONCE SQ Last administered on 06/19/24at 16:45; Start 06/19/24 at 16:00; Stop 06/19/24 at 16:01; Status DC Pharmacy Profile Note 1 each AD MISC; Start 06/19/24 at 15:30; Stop 06/20/24 at 12:49; Status DC Furosemide 40 mg Q8H IV Last administered on 06/20/24at 18:54; Start 06/19/24 at 18:30; Stop 06/20/24 at 18:31; Status DC Potassium Chloride 100 ml @ As Directed STK-MED ONCE IV Last administered on 06/20/24at 12:17; Start 06/20/24 at 12:11; Stop 06/20/24 at 12:11; Status DC Hydromorphone HCl 0.5 mg Q4H PRN IVP Last administered on 06/21/24at 23:50; Start 06/20/24 at 13:00; Stop 06/25/24 at 12:59; Status DC Hydromorphone HCl 0.5 mg STK-MED ONCE .ROUTE; Start 06/20/24 at 12:48; Stop 06/20/24 at 12:52; Status DC Potassium Chloride 100 ml @ 100 mls/hr AD PRN IV Last administered on 06/24/24at 05:57; Start 06/21/24 at 08:00; Stop 07/21/24 at 07:59 Lactated Ringer's 1,000 ml @ 130 mls/hr Q7H42M IV Last administered on 06/26/24at 05:15; Start 06/21/24 at 09:30; Stop 07/21/24 at 09:29 Amlodipine Besylate 5 mg BID PO Last administered on 06/26/24at 10:13; Start 06/22/24 at 09:00; Stop 07/22/24 at 08:59 Hydralazine HCl 25 mg TID PO Last administered on 06/26/24at 15:04; Start 06/22/24 at 09:00; Stop 07/22/24 at 08:59 Potassium Chloride 40 meq BID PO Last administered on 06/22/24at 19:54; Start 06/22/24 at 09:00; Stop 06/22/24 at 21:01; Status DC Hydrocortisone Sodium Succinate 50 mg Q8H6 IV Last administered on 06/26/24at 15:06; Start 06/23/24 at 06:00; Stop 07/23/24 at 05:59 Hydrocortisone Sodium Succinate 50 mg ONCE@1930 IV Last administered on 06/22/24at 19:59; Start 06/22/24 at 19:30; Stop 06/22/24 at 22:30; Status DC Pharmacy Profile Note 1 each ONCE MISC; Start 06/22/24 at 16:30; Stop 06/23/24 at 07:22; Status DC Tigecycline 100 mg/Sodium Chloride 100 ml @ 200 mls/hr ONCE IV Last administered on 06/22/24at 18:51; Start 06/22/24 at 16:30; Stop 06/23/24 at 07:21; Status DC Tigecycline 50 mg/ Sodium Chloride 100 ml @ 200 mls/hr BID@0600,1800 IV Last administered on 06/26/24at 05:14; Start 06/23/24 at 06:00; Stop 06/30/24 at 05:59 Propofol 200 mg STK-MED ONCE IV; Start 06/23/24 at 10:49; Stop 06/23/24 at 10:49; Status DC Propofol 200 mg STK-MED ONCE IV; Start 06/23/24 at 10:49; Stop 06/23/24 at 10:49; Status DC Magnesium Sulfate 50 ml @ 0 mls/hr PROTOCOL PRN IV Last administered on 06/24/24at 05:57; Start 06/23/24 at 11:30; Stop 07/23/24 at 11:29 Potassium Chloride 100 ml @ 100 mls/hr AD PRN IV; Start 06/23/24 at 11:30; Stop 07/23/24 at 11:29 Potassium Chloride 20 meq AD PRN PO; Start 06/23/24 at 11:30; Stop 07/23/24 at 11:29 Potassium Chloride 20 meq AD PRN PO; Start 06/23/24 at 11:30; Stop 07/23/24 at 11:29 Polyethylene Glycol/ Electrolytes 4,000 ml ONCE ONCE PO Last administered on 06/23/24at 12:55; Start 06/23/24 at 14:00; Stop 06/23/24 at 14:01; Status DC Vitamin B Complex/ Vit C/Folic Acid 1 cap DAILY PO Last administered on 06/26/24at 10:13; Start 06/24/24 at 09:00; Stop 07/24/24 at 08:59 Ondansetron HCl 4 mg Q6H PRN IVP Last administered on 06/23/24at 20:10; Start 06/23/24 at 20:30; Stop 07/23/24 at 20:29 Metoprolol Tartrate 5 mg ONCE ONCE IV Last administered on 06/24/24at 09:36; Start 06/24/24 at 09:30; Stop 06/24/24 at 09:31; Status DC Folic Acid 1 mg DAILY PO Last administered on 06/26/24at 10:13; Start 06/25/24 at 09:00; Stop 07/25/24 at 08:59 Epoetin Rylan-epbx 10,000 unit [id number] SQ; Start 06/24/24 at 14:00; Stop 06/24/24 at 13:53; Status DC Epoetin Rylan-epbx 10,000 unit QWEEK SQ Last administered on 06/24/24at 14:37; Start 06/24/24 at 14:00; Stop 07/24/24 at 13:59 Amiodarone HCl 360 mg/Dextrose 200 ml @ 0 mls/hr PROTOCOL IV Last administered on 06/24/24at 15:51; Start 06/24/24 at 14:30; Stop 06/25/24 at 09:16; Status DC Amiodarone HCl 540 mg/Dextrose 300 ml @ 0 mls/hr PROTOCOL IV Last administered on 06/24/24at 20:42; Start 06/24/24 at 21:00; Stop 07/24/24 at 20:59 Apixaban 5 mg BID PO Last administered on 06/26/24at 10:13; Start 06/24/24 at 14:30; Stop 07/24/24 at 14:29 Metoprolol Tartrate 25 mg BID PO Last administered on 06/26/24at 10:13; Start 06/24/24 at 14:30; Stop 07/24/24 at 14:29 Amiodarone HCL/ Dextrose 100 ml @ 0 mls/hr ONCE ONCE IV Last administered on 06/24/24at 15:34; Start 06/24/24 at 16:00; Stop 06/24/24 at 16:01; Status DC Potassium Chloride 40 meq BID PO Last administered on 06/26/24at 10:14; Start 06/25/24 at 09:00; Stop 07/25/24 at 08:59 Calcium Carbonate 500 tab ONCE PO; Start 06/26/24 at 15:30; Stop 07/26/24 at 15:29; Status Cancel Calcium Carbonate 1 tab ONCE ONCE PO; Start 06/26/24 at 16:00; Stop 06/26/24 at 16:01; Status Cancel Calcium Carbonate 1 tab ONCE ONCE PO; Start 06/26/24 at 16:00; Stop 06/26/24 at 16:01 TOYA MANSFIELD MD Jun 26, 2024 16:01
[2024-06-26] MEDS: CALCIUM CARB 500MG CHEW TAB PO ONE (17:05)
[2024-06-26 17:12] LABS: ALBUMIN (PEP) 2.6 g/dL (2.9-4.4); TOTAL PROTEIN 5.2 g/dL (6.0-8.5)
--- NOTE | 2024-06-26 19:03 | PN ---
[facility] PROGRESS NOTE Date of Service: Jun 26, 2024 Time of Service: 19:00 SUBJECTIVE: Patient is seen and examined at bedside, case discussed with the RN, during my visit the patient resting comfortably in bed, following simple commands, he is on blood pressure support with Levophed, getting sodium bicarbonate IV. BP 108/57, heart rate of 116, saturating 99% on 2 L nasal cannula. Hemoglobin 8.4, hematocrit 27.0, WBC 14.2, platelet count of 28. Sodium 143, potassium 5.0, bicarb of five, BUN 107, creatinine 9.7. ABG with pH of 7.8, pCO2 less than 15, bicarb of 2.3. 06/18 patient has been seen and examined at bedside, case discussed with the RN, patient remains confused, still on pressor support with Levophed and Andrew- Synephrine, patient also on sodium bicarbonate drip. No family members at bedside during my visit. Blood pressure 112/44, heart rate of 91, saturating 93%. CBC with WBC of 16.4, hemoglobin 8.2, hematocrit 23.7, platelet count of 27. Sodium 145, potassium 3.7, BUN of 102, creatinine 10.2, sodium bicarb of 12. ABG with pH of 7.33, pCO2 31, PO2 64, bicarb of 16.1. Septic workup reviewed, blood cultures no growth after 24 hours. Patient getting broad- spectrum IV antibiotics during my visit. CT of the abdomen pelvis probable mild enterocolitis with mild to moderate small and large bowel liquid content, cholelithiasis, urinary wall thickening, more than expected for empty urinary bladder. Mild distal colonic diverticulosis. 06/19 patient is seen and examined at bedside, case discussed with the RN, no acute events overnight, patient is still confused, however less compared to time of admission. Following very simple commands. He is currently off vasopressors. Replace, output since this morning 500 cc. Blood pressure 111/78, afebrile, saturating 96-98% 2 L nasal cannula. WBC trending down at 11.2, hemoglobin 7.6, hematocrit 20.9, platelet count of 14. BUN 108, creatini ne 10.2. ABG shows a pH 7.41, pCO2 37, PO2 81.5, bicarb 23.1. Blood culture showing Alicia tropicalis. Patient has been started on micafungin. Continue antibiotics. Continue critical care input and recommendation, continue Nephrology input and recommendation in terms of renal replacement therapy, continue daily weight, monitor intake and output. Follow anemia workup, stool o ccult blood, serial CBC transfuse 1 unit of PRBC hemoglobin less than seven, we will request Hematology consultation as well. 06/20 patient seen at bedside, no acute events overnight. He is not requiring pressors he is afebrile, hemodynamically stable saturating well on 2 L nasal cannula. Hemoglobin was 6.1 and platelets low at night, we will be transfused with packed red blood cells and platelets per critical Care, we will follow up post transfusion. Potassium decreased from 3.4 down to 3.2, creatinine stable at 10.2, we will follow up with Nephrology for recommendations. Urine output is improving, he has been started on Lasix, we will follow up. Patient continues on micafungin. Pt reticulocyte count low at 0.18 suggesting decreased production of RBC, FOBT positive as well concerning for GI Bleed. Will consult hematology and GI and follow up 06/21 patient seen at bedside, no acute events overnight. He has been afebrile, hemodynamically stable saturating well on 2 L nasal cannula. He has been NPO h owever he has no history of volume overload, and his kidney function is decreased, we will perfuse his kidneys with some IV fluids and allow clear liquid diet. Creatinine stable at 9.9, same as yesterday, potassium decreased at 3.0, nephrology to manage potassium levels until renal function improves. Hemoglobin improved from 8.0 up to 8.7, remainder of his labs are relatively unr emarkable. 06/22 Pt seen at bedside, no acute events overnight. He has been downgraded from ICU. He has been afebrile, hemodynamically stable, saturating well on room air. Hgb stable at 8.6, similar to yesterday, platelets decreased from 102 down to 82, potassium low at 2.7, will be repleted according to protocol, creatinine improved from 9.9 down to 8.5, sodium improved from 150 down to 146, remainder of his labs are relatively unremarkable. Urine output adequate, approximately 2.3L output in the last 24 hours. On physical exam, no evidence of volume overflow, will continue with IV fluids to perfuse his kidneys. Left foot gr owing mullins-resistant organism, ID to adjust antibiotics 06/23 patient seen at bedside, no acute events overnight. He is pending EGD with GI today, we will follow up postprocedure. He has been afebrile, hemodynamically stable, mildly hypertensive with systolics in the 150s, saturating well on 3 L nasal cannula. Hemoglobin improved from 8.6 up to 9.0, platelets decreased from 82 down to 78, creatinine continues to improve from 8.5 down to 7.2 with adequate urine output. Potassium low at 3.1, we will be rep leted according to potassium protocol. Patient weak and feeble, we will likely need transitioned to nursing home facility, case management to assist with placement. He will continue daily physical therapy. 06/24 patient seen at bedside, no acute events overnight. EGD was done yesterday no evidence of bleed noted. Patient refusing colonoscopy. Hgb is uptrending from 9.0 up to 9.3 suggesting resolution of GI bleed, platelets improved from 78 up to 87, creatinine improved from 7.2 down to 6.4, potassium low at 3.4, will be repleted according to protocol. Patient will need placement for IV antibiotics 06/25 patient seen at bedside, no acute events overnight. Continues to refuse colonoscopy yesterday he went into AFib with RVR was started on IV amiodarone. He was rate controlled today, likely we will be transitioned to p.o. amiodarone. Now pending placement to continue IV antibiotic and antifungal therapy. We will follow up with case management and Cardiology. Creatinine improved from 6.4 down to 5.9, BUN still elevated at 112. Potassium low at 2.9 will be repleted according to protocol and will give an extra 80meq supplementation. 06/26 patient seen at bedside, no acute events overnight. He has been afebrile, hemodynamically stable saturating well on room air. WBC increased from 11.3 up to 13.1, hemoglobin stable at 9.7, same as yesterday, creatinine stable at 5.9, same as yesterday, BUN increased from 112 up to 117, remainder of his labs are relatively unremarkable. Proximally 1.1 L urine output in the last 24 hours. He is pending placement REVIEW OF SYSTEMS 12 point review of systems negative unless noted in HPI PHYSICAL EXAM GENERAL APPEARANCE: The patient remains confused. Withdrawing to painful sti mulation. NEUROLOGICAL: Cranial nerves II-XII grossly intact. Motor is 5/5 in bilateral upper and lower extremities proximal to distal. No sensory deficits. HEENT: Face is symmetric. Pupils are equal and reactive. Extraocular movements are intact. NECK: Supple. No JVD. No thyromegaly. No submental, submandibular, pre- /postauricular, occipital or supraclavicular lymphadenopathy. CHEST: Normal chest expansion. No Telemetry. LUNGS: Absence of any rales, rhonchi or any wheezing. CARDIOVASCULAR: Regular. S1 and S2 normal. No appreciable rubs, murmurs or gallops. ABDOMEN: Soft, nontender, and nondistended. There is no rebound, voluntary guarding, or rigidity. : Deferred. No Gallagher. EXTREMITIES: Non-edematous and not cyanotic. No clubbing. Good capillary refill. SKIN: No skin breakdown. Vital Signs (last 8hr) Date Time Temp Pulse Resp B/P (MAP) Pulse Ox O2 Delivery O2 Flow Rate FiO2 06/26/24 16:00 98.6 65 20 122/65 97 Nasal Cannula 2.0 06/26/24 12:00 97.9 65 20 120/78 97 Nasal Cannula 2.0 LABS: Laboratory: Test 06/26/24 16:40 06/26/24 03:21 06/24/24 19:37 Range/Units Whole Blood Glucose 242 H 70-110 MG/DL White Blood Count 13.1 H 4.8-10.8 K/uL Red Blood Count 3.23 L 4.50-6.20 MIL/uL Hemoglobin 9.7 L 14.0-18.0 g/dL Hematocrit 27.6 L 42-54 % Mean Corpuscular Volume 85.4 79-99 fL Mean Corpuscular Hemoglobin 30.0 27.0-33.0 pg Mean Corpuscular Hemoglobin Concent 35.1 32.0-36.0 g/dL Red Cell Distribution Width 14.9 11.0-15.5 % Platelet Count 190 # 130-400 K/uL Mean Platelet Volume 11.8 H 7.5-10.5 fL Immature Granulocyte % (Auto) 0.9 0-1 % Neutrophils (%) (Auto) 88.1 H 40.0-77.0 % Lymphocytes (%) (Auto) 4.9 L 21.0-51.0 % Monocytes (%) (Auto) 6.0 3.0-13.0 % Eosinophils (%) (Auto) 0.0 0.0-8.0 % Basophils (%) (Auto) 0.1 0.0-5.0 % Neutrophils # (Auto) 11.5 H 1.8-7.7 K/uL Lymphocytes # (Auto) 0.6 L 1.0-4.8 K/uL Monocytes # (Auto) 0.8 0.1-1.0 K/uL Eosinophils # (Auto) 0.00 0.00-0.70 K/uL Basophils # (Auto) 0.01 0.00-0.20 K/uL Absolute Immature Granulocyte (auto 0.12 0-1 K/uL Nucleated Red Blood Cells 0.2 H 0.0-0.19 % Sodium Level 139 136-145 mmol/L Potassium Level 3.6 3.5-5.1 mmol/L Chloride Level 98 L 101-111 mmol/L Carbon Dioxide Level 27 21-32 mmol/L Blood Urea Nitrogen 117 *H 7-18 mg/dL Creatinine 5.9 H 0.5-1.3 mg/dL Glomerular Filtration Rate Calc 10 >90 mL/min Random Glucose 181 H 70-105 mg/dL Total Calcium 7.8 L 8.5-10.1 mg/dL Phosphorus Level 6.6 H 2.5-4.9 mg/dL Magnesium Level 1.90 1.80-2.40 mg/dL Total Bilirubin 0.5 0.2-1.0 mg/dL Aspartate Amino Transf (AST/SGOT) 21 10-37 U/L Alanine Aminotransferase (ALT/SGPT) 16 12-78 U/L Alkaline Phosphatase 126 50-136 U/L Total Protein 5.9 L 6.0-8.3 g/dL Albumin 2.2 L 3.5-5.0 g/dL Bedside Glucose Comment Notified Nurse Current Medications Medications (Trade) Dose Ordered Sig/Roderick Route PRN Reason Start Time Stop Time Status Last Admin Dose Admin Albuterol Sulfate (Proventil 0.083% 2.5mg/3ml) 10 mg ONCE STAT IH 06/17/24 04:05 06/17/24 04:12 DC 06/17/24 04:31 10 MG Amiodarone HCl 360 mg/Dextrose 200 ml @ 0 mls/hr PROTOCOL IV 06/24/24 14:30 06/25/24 09:16 DC 06/24/24 15:51 33.33 MLS/HR Amiodarone HCl 540 mg/Dextrose 300 ml @ 0 mls/hr PROTOCOL IV 06/24/24 21:00 07/24/24 20:59 06/24/24 20:42 16.7 MLS/HR Amlodipine Besylate (NorvASC 5MG TAB) 5 mg BID PO 06/22/24 09:00 07/22/24 08:59 06/26/24 10:13 5 MG Apixaban (EliquIS) 5 mg BID PO 06/24/24 14:30 07/24/24 14:29 06/26/24 10:13 5 MG Calcium Carbonate (Tums 500 Mg Chew Tab) 500 tab ONCE PO 06/26/24 15:30 07/26/24 15:29 Cancel Calcium Gluconate (Calcium Gluc 1gm Vial) 1 gm AD STAT IV 06/17/24 04:05 06/17/24 04:12 DC 06/17/24 04:21 1 GM Cefepime HCl (MAXipime 1 GM vial) 0.25 gm Q24H IVPB 06/17/24 04:00 06/18/24 04:06 DC 06/17/24 04:58 0.25 GM Cefepime HCl (MAXipime 1 GM vial) 1 gm Q24H IVPB 06/20/24 05:00 06/22/24 16:09 DC 06/22/24 03:12 1 GM Cefepime HCl 0.25 gm/Sodium Chloride 50 ml @ 100 mls/hr Q24H IVPB 06/18/24 04:30 06/19/24 10:58 DC 06/19/24 05:26 100 MLS/HR Dextrose (D50w) 50 ml AD PRN IV HYPOGLYCEMIA PROTOCOL 06/17/24 01:00 06/17/24 01:01 DC Dextrose (D50w) 50 ml AD PRN IV HYPOGLYCEMIA PROTOCOL 06/17/24 01:00 07/17/24 00:59 Dextrose (D50w) 50 ml ONCE STAT IV 06/17/24 04:05 06/17/24 04:12 DC 06/17/24 04:21 50 ML Epoetin Rylan-epbx (Retacrit) 10,000 unit [id number] SQ 06/24/24 14:00 06/24/24 13:53 DC Epoetin Rylan-epbx (Retacrit) 10,000 unit QWEEK SQ 06/24/24 14:00 07/24/24 13:59 06/24/24 14:37 10,000 UNIT Famotidine (Pepcid 20mg Vial) 20 mg Q48H IV 06/17/24 01:00 07/17/24 00:59 06/25/24 00:55 20 MG Folic Acid (FOLic ACID 1 MG TABLET) 1 mg DAILY PO 06/25/24 09:00 07/25/24 08:59 06/26/24 10:13 1 MG Furosemide (LASix 40MG VIAL) 40 mg Q8H IV 06/19/24 18:30 06/20/24 18:31 DC 06/20/24 18:54 40 MG Glucagon (Glucagon 1mg Kit) 1 mg AD PRN IM HYPOGLYCEMIA PROTOCOL 06/17/24 01:00 06/17/24 01:01 DC Glucagon (Glucagon 1mg Kit) 1 mg AD PRN IM HYPOGLYCEMIA PROTOCOL 06/17/24 01:00 07/17/24 00:59 Hydralazine HCl ([id number] TAB) 25 mg TID PO 06/22/24 09:00 07/22/24 08:59 06/26/24 15:04 25 MG Hydrocortisone Sodium Succinate (Solu-corTEF 100MG) 50 mg ONCE@1930 IV 06/22/24 19:30 06/22/24 22:30 DC 06/22/24 19:59 50 MG Hydrocortisone Sodium Succinate (Solu-corTEF 100MG) 50 mg Q8H IV 06/18/24 11:30 06/22/24 15:46 DC 06/22/24 03:12 50 MG Hydrocortisone Sodium Succinate (Solu-corTEF 100MG) 50 mg Q8H6 IV 06/23/24 06:00 07/23/24 05:59 06/26/24 15:06 50 MG Hydromorphone HCl (DiLAUDid 0.5MG INJ) 0.5 mg Q4H PRN IVP SEVERE PAIN (7-10) 06/20/24 13:00 06/25/24 12:59 DC 06/21/24 23:50 0.5 MG Insulin Human Regular (humuLIN R 100 UNIT/ML 3ML) 10 unit ONCE STAT IV 06/17/24 04:05 06/17/24 04:12 DC 06/17/24 04:28 10 UNIT Insulin Human Regular (humuLIN R 100 UNIT/ML 3ML) INSULIN SLIDING SCAL... ACHS SQ 06/17/24 07:30 07/17/24 07:29 06/26/24 17:11 4 UNIT Lactated Ringer's 1,000 ml @ 130 mls/hr Q7H42M IV 06/21/24 09:30 07/21/24 09:29 06/26/24 05:15 130 MLS/HR Leptospermum Honey (Medihoney) 1 appl DAILY TP 06/19/24 09:00 07/19/24 08:59 06/26/24 10:14 1 APPL Magnesium Sulfate 50 ml @ 0 mls/hr PROTOCOL PRN IV MAGNESIUM PROTOCOL 06/23/24 11:30 07/23/24 11:29 06/24/24 05:57 25 MLS/HR Metoprolol Tartrate (loprESSOR) 25 mg BID PO 06/24/24 14:30 07/24/24 14:29 06/26/24 10:13 25 MG Metronidazole/ Sodium Chloride (flaGYL) 500 mg Q8H IV 06/17/24 05:00 06/27/24 04:59 06/26/24 15:05 500 MG Micafungin Sodium 100 ml @ 100 mls/hr Q24H IV 06/18/24 00:00 07/18/24 00:00 06/25/24 23:57 100 MLS/HR Norepinephrine 250 ml @ 0 mls/hr PROTOCOL IV 06/16/24 22:00 06/22/24 07:20 DC 06/17/24 05:33 24.5 MLS/HR Ondansetron HCl (zoFRAN 4MG INJ) 4 mg Q6H PRN IVP NAUSEA/VOMITING 06/23/24 20:30 07/23/24 20:29 06/23/24 20:10 4 MG Pharmacy Profile Note (Lace Assessment) 1 each AD MISC 06/19/24 15:30 06/20/24 12:49 DC Pharmacy Profile Note (Pharmacy Communication) 1 each ONCE MISC 06/17/24 23:00 06/19/24 07:13 DC 06/17/24 23:31 1 EACH Pharmacy Profile Note (Pharmacy Communication) 1 each ONCE MISC 06/22/24 16:30 06/23/24 07:22 DC Phenylephrine HCl 100 mg/Sodium Chloride 250 ml @ 0 mls/hr AD PRN IV TITRATE 06/17/24 10:30 06/22/24 07:20 DC 06/18/24 05:48 27 MLS/HR Piperacillin Sod/ Tazobactam Sod (Zosyn 3.375gm+NS 50ml) 3.375 gm Q12H IV 06/16/24 21:30 06/17/24 01:03 DC 06/16/24 21:42 3.375 GM Piperacillin Sod/ Tazobactam Sod (Zosyn 3.375gm+NS 50ml) 3.375 gm Q12H IVPB 06/17/24 01:00 06/17/24 04:00 DC 06/17/24 02:54 3.375 GM Potassium Chloride 100 ml @ 100 mls/hr AD PRN IV POTASSIUM PROTOCOL 06/21/24 08:00 07/21/24 07:59 06/24/24 05:57 100 MLS/HR Potassium Chloride 100 ml @ 100 mls/hr AD PRN IV POTASSIUM PROTOCOL 06/23/24 11:30 07/23/24 11:29 Potassium Chloride (K-Dur/Klor-Con 20meq) 20 meq AD PRN PO POTASSIUM PROTOCOL 06/23/24 11:30 07/23/24 11:29 Potassium Chloride (K-Dur/Klor-Con 20meq) 40 meq BID PO 06/22/24 09:00 06/22/24 21:01 DC 06/22/24 19:54 40 MEQ Potassium Chloride (K-Dur/Klor-Con 20meq) 40 meq BID PO 06/25/24 09:00 07/25/24 08:59 06/26/24 10:14 40 MEQ Potassium Chloride (KCl 10% Elixir 20meq/15ml) 20 meq AD PRN PO POTASSIUM PROTOCOL 06/23/24 11:30 07/23/24 11:29 Sodium Bicarbonate / Dextrose 1,000 ml @ 0 mls/hr Q0M IVP 06/17/24 05:00 06/17/24 04:58 DC Sodium Bicarbonate 150 meq/Dextrose 1,150 ml @ 50 mls/hr Q23H IVP 06/18/24 08:00 06/19/24 12:24 DC 06/18/24 20:23 100 MLS/HR Sodium Bicarbonate 150 meq/Dextrose 1,150 ml @ 100 mls/hr [id number] IVP 06/17/24 05:00 06/18/24 04:44 DC 06/17/24 21:00 100 MLS/HR Sodium Polystyrene Sulfonate (kayEXALate 15 GM/60 ML) 15 gm Q2H PO 06/16/24 21:30 06/16/24 23:31 DC 06/16/24 22:21 15 GM Sodium Chloride 1,000 ml @ 150 mls/hr Q6H40M IV 06/16/24 23:00 06/17/24 09:10 DC 06/17/24 05:15 150 MLS/HR Sodium Chloride (NS 50ml) 50 ml AD IV 06/17/24 01:00 06/17/24 01:05 DC Thiamine HCl (Vitamin B-1) 100 mg DAILY IVP 06/17/24 09:00 07/17/24 08:59 06/26/24 15:06 100 MG Tigecycline 100 mg/Sodium Chloride 100 ml @ 200 mls/hr ONCE IV 06/22/24 16:30 06/23/24 07:21 DC 06/22/24 18:51 200 MLS/HR Tigecycline 50 mg/ Sodium Chloride 100 ml @ 200 mls/hr BID@0600,1800 IV 06/23/24 06:00 06/30/24 05:59 06/26/24 05:14 200 MLS/HR Vancomycin HCl (Vancomycin 750mg) 750 mg Q96H IVPB 06/20/24 22:00 06/17/24 14:00 DC Vancomycin HCl (Vancomycin Protocol) 1 each AD IV 06/17/24 01:30 06/17/24 14:01 DC Vitamin B Complex/ Vit C/Folic Acid (Nephrovite Tablet) 1 cap DAILY PO 06/24/24 09:00 07/24/24 08:59 06/26/24 10:13 1 CAP DIAGNOSTICS / RADIOLOGY: [ ] ASSESSMENT: Severe metabolic acidosis, resolved POA Septic shock requiring vasopressor, resolved POA Paroxysmal afib with RVR Fungemia 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 Nephrology consulted, appreciate recommendations Start LR @ 130 cc/hr Start clear liquid diet Continue furosemide GI consulted, appreciate recommendations Hematology consulted, appreciate recommendations Anemia workup. Transfuse as needed. Hematology consultation requested per Follow critical care input and recommendation Disposition: Pending placement, antibiotics, transition to PO amiodarone AL CARDONA MD Jun 26, 2024 19:03
--- NOTE | 2024-06-26 20:09 | PN ---
[facility] CARDIOLOGY PROGRESS NOTE Date Patient Seen: Jun 26, 2024 Time of Visit: 15:08 Problem List: New onset AFL with RVR Interval History: Patient feels well HR well controlled Amiodarone gtt discontinued yesterday No acute issues per primary RN Physical Examination: GENERAL: [No acute distress.] HEAD: [Normal with no signs of head trauma.] LUNGS: [Clear breath sounds bilaterally. No wheezes, or rhonchi.] HEART: [Normal rate and rhythm. .] VASC: [Peripheral pulses +2 bilaterally.] EXT: [No clubbing, cyanosis or edema.] SKIN: [No rashes or lesions noted.] NEURO: [Awake, alert, and oriented x3. No focal sensory or strength deficits noted.] Laboratory: [ ] Hematology Labs: Test 06/26/24 03:21 Range/Units White Blood Count 13.1 H 4.8-10.8 K/uL Red Blood Count 3.23 L 4.50-6.20 MIL/uL Hemoglobin 9.7 L 14.0-18.0 g/dL Hematocrit 27.6 L 42-54 % Mean Corpuscular Volume 85.4 79-99 fL Mean Corpuscular Hemoglobin 30.0 27.0-33.0 pg Mean Corpuscular Hemoglobin Concent 35.1 32.0-36.0 g/dL Red Cell Distribution Width 14.9 11.0-15.5 % Platelet Count 190 # 130-400 K/uL Mean Platelet Volume 11.8 H 7.5-10.5 fL Immature Granulocyte % (Auto) 0.9 0-1 % Neutrophils (%) (Auto) 88.1 H 40.0-77.0 % Lymphocytes (%) (Auto) 4.9 L 21.0-51.0 % Monocytes (%) (Auto) 6.0 3.0-13.0 % Eosinophils (%) (Auto) 0.0 0.0-8.0 % Basophils (%) (Auto) 0.1 0.0-5.0 % Neutrophils # (Auto) 11.5 H 1.8-7.7 K/uL Lymphocytes # (Auto) 0.6 L 1.0-4.8 K/uL Monocytes # (Auto) 0.8 0.1-1.0 K/uL Eosinophils # (Auto) 0.00 0.00-0.70 K/uL Basophils # (Auto) 0.01 0.00-0.20 K/uL Absolute Immature Granulocyte (auto 0.12 0-1 K/uL Nucleated Red Blood Cells 0.2 H 0.0-0.19 % Chemistry Labs: Test 06/26/24 19:43 06/26/24 03:21 Range/Units Whole Blood Glucose 193 H 70-110 MG/DL Sodium Level 139 136-145 mmol/L Potassium Level 3.6 3.5-5.1 mmol/L Chloride Level 98 L 101-111 mmol/L Carbon Dioxide Level 27 21-32 mmol/L Blood Urea Nitrogen 117 *H 7-18 mg/dL Creatinine 5.9 H 0.5-1.3 mg/dL Glomerular Filtration Rate Calc 10 >90 mL/min Random Glucose 181 H 70-105 mg/dL Total Calcium 7.8 L 8.5-10.1 mg/dL Phosphorus Level 6.6 H 2.5-4.9 mg/dL Magnesium Level 1.90 1.80-2.40 mg/dL Total Bilirubin 0.5 0.2-1.0 mg/dL Aspartate Amino Transf (AST/SGOT) 21 10-37 U/L Alanine Aminotransferase (ALT/SGPT) 16 12-78 U/L Alkaline Phosphatase 126 50-136 U/L Total Protein 5.9 L 6.0-8.3 g/dL Albumin 2.2 L 3.5-5.0 g/dL Impression and Plan: New onset atrial fibrillation with RVR and atrial flutter, - [id number] Score of 3 - status post amiodarone bolus with infusion x24 hours. - started on low dose metoprolol and tolerating. Septic shock POA Severe lactic acidosis 9.1 POA Acute on chronic renal failure with admission creatinine of 9.9 and estimated GF R of 5 (prior GFR of 30 and creatinine of 2.3 on 05/05/2024) Thrombocytopenia Type 2 [place] with troponin rising to 581 in the setting of septic shock, severe lactic acidosis, and acute renal failure Normal LV systolic function with an LVEF of 60-65% and grade 2 diastolic dysfunction by 2D echocardiogram 06/17/2024 Osteomyelitis of the left 4th and 5th ray amputation during admission 05/05/2024 Peripheral artery disease Hypertension Hyperlipidemia Type 2 diabetes mellitus HR shows improved control with addition of low dose metoprolol Discontinued amiodarone infusion As HR well controlled on current medications, and tolerating therapeutic anticoagulation, cardiology to sign off at this time. Please contact if questions arise. GIFTY CONNER DO Jun 26, 2024 20:09
--- NOTE | 2024-06-26 20:48 | PN ---
NEPHROLOGY NOTE SUBJECTIVE: This patient has multiple problems including renal failure acute on chronic, thrombocytopenia, diabetes, hypertension, osteomyelitis, toe amputation, previous sepsis. No fevers, chills, or rigors, with no cough, expectoration, hemoptysis. No abdominal pain, no nausea, or vomiting. No chest pain, no orthopnea or PND. Other systemic review is unchanged. PHYSICAL EXAMINATION: GENERAL: Pale, no other distress. VITAL SIGNS: Blood pressure is 120/78, pulse 65, respiratory rate is 20. HEENT: Head is atraumatic, normocephalic. Pupils are round and reactive. Sclerae are anicteric. Conjunctivae not pale. Oral mucosa is not dry. NECK: Without masses or bruits. Thyroid is palpable. Neck has no bruits. CHEST: Shows equal thoracic percussion note being resonant in all areas. CARDIAC: Regular rhythm. No rub, no S3 or S4. No parasternal heave. Apical beat is not localized. ABDOMEN: With no guarding, tenderness. Bowel sounds are normoactive. No free fluid. EXTREMITIES: With no edema, cyanosis, or clubbing. BACK: No tenderness or back deformities. LABORATORY DATA: Labs have shown elevated BUN of 107, creatinine 5.9. Hemoglobin is low up to 9.7. IMAGING STUDIES: X-rays have been reviewed. Imaging studies personally reviewed. Old records reviewed. PROBLEMS: Advanced renal failure with acute on chronic sepsis, anemia, underlying electrolyte problem, diabetes. PLAN: Plan will be continued monitoring. No urgent need for dialysis. The patient's baseline creatinine was last month around 2. We will continue monitoring, see whether improvement happens. Meanwhile, nonsteroidal drug and nephrotoxics to be avoided. Dose of medicine to be adjusted and follow up on blood pressure, electrolyte, fluid status, and overall status. I have discussed with other team members, and labs and x-rays are personality reviewed. Thank you for this patient. TID: [id number] RECEIPT: [id number]
--- NOTE | 2024-06-26 23:39 | PN ---
INFECTIOUS DISEASE PROGRESS NOTE Date of Service: Jun 26, 2024 2 SUBJECTIVE: Patient was seen and examined at bedside in room 308. Patient is awake, alert and oriented. Patient is now on amiodarone p.o. WBC slightly elevated at 13.1 but no fever, temperature is 98.4�. Will continue on Tygacil IV, micafungin IV and metronidazole. We will continue to follow patient's care. PHYSICAL EXAM EYES: Anicteric. Pupils equal and reactive. HENT: No oral thrush seen, moist Oral mucosa. NECK: Supple, no JVD or thyromegaly. LUNGS: Good air entry. No rales, no rhonchi. CARDIOVASCULAR: S1, S2 regular. No murmur heard. ABDOMEN: Soft, non tender, bowel sounds present, no organomegaly. CENTRAL NERVOUS SYSTEM: Awake, alert, oriented x 2. SKIN: No rashes, no swelling. LYMPHATICS: No peripheral lymphadenopathy. MUSCULOSKELETAL: No joint swelling, erythema or tenderness. EXTREMITIES: No cyanosis or clubbing. 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 BACK: No deformity, no pressure ulcer. GENITOURINARY: No dysuria or hematuria. Vital Sign (Last 12 Hours) 06/26/24 06/26/24 06/26/24 12:00 16:00 19:00 Temp 97.9 98.6 98.1 Pulse 65 65 85 Resp 20 20 18 B/P (MAP) 120/78 122/65 118/72 Pulse Ox 97 97 96 O2 Delivery Nasal Cannula Nasal Cannula Nasal Cannula O2 Flow Rate 2.0 2.0 1.0 Intake & Output (last 24hrs) 06/25/24 06/25/24 06/26/24 15:00 23:00 07:00 Intake Total 100.0 ml 2100.0 ml Output Total 500 ml 600 ml Balance -400.0 ml 1500.0 ml LABS: Laboratory: Test 06/26/24 19:43 06/26/24 03:21 Range/Units Whole Blood Glucose 193 H 70-110 MG/DL White Blood Count 13.1 H 4.8-10.8 K/uL Red Blood Count 3.23 L 4.50-6.20 MIL/uL Hemoglobin 9.7 L 14.0-18.0 g/dL Hematocrit 27.6 L 42-54 % Mean Corpuscular Volume 85.4 79-99 fL Mean Corpuscular Hemoglobin 30.0 27.0-33.0 pg Mean Corpuscular Hemoglobin Concent 35.1 32.0-36.0 g/dL Red Cell Distribution Width 14.9 11.0-15.5 % Platelet Count 190 # 130-400 K/uL Mean Platelet Volume 11.8 H 7.5-10.5 fL Immature Granulocyte % (Auto) 0.9 0-1 % Neutrophils (%) (Auto) 88.1 H 40.0-77.0 % Lymphocytes (%) (Auto) 4.9 L 21.0-51.0 % Monocytes (%) (Auto) 6.0 3.0-13.0 % Eosinophils (%) (Auto) 0.0 0.0-8.0 % Basophils (%) (Auto) 0.1 0.0-5.0 % Neutrophils # (Auto) 11.5 H 1.8-7.7 K/uL Lymphocytes # (Auto) 0.6 L 1.0-4.8 K/uL Monocytes # (Auto) 0.8 0.1-1.0 K/uL Eosinophils # (Auto) 0.00 0.00-0.70 K/uL Basophils # (Auto) 0.01 0.00-0.20 K/uL Absolute Immature Granulocyte (auto 0.12 0-1 K/uL Nucleated Red Blood Cells 0.2 H 0.0-0.19 % Sodium Level 139 136-145 mmol/L Potassium Level 3.6 3.5-5.1 mmol/L Chloride Level 98 L 101-111 mmol/L Carbon Dioxide Level 27 21-32 mmol/L Blood Urea Nitrogen 117 *H 7-18 mg/dL Creatinine 5.9 H 0.5-1.3 mg/dL Glomerular Filtration Rate Calc 10 >90 mL/min Random Glucose 181 H 70-105 mg/dL Total Calcium 7.8 L 8.5-10.1 mg/dL Phosphorus Level 6.6 H 2.5-4.9 mg/dL Magnesium Level 1.90 1.80-2.40 mg/dL Total Bilirubin 0.5 0.2-1.0 mg/dL Aspartate Amino Transf (AST/SGOT) 21 10-37 U/L Alanine Aminotransferase (ALT/SGPT) 16 12-78 U/L Alkaline Phosphatase 126 50-136 U/L Total Protein 5.9 L 6.0-8.3 g/dL Albumin 2.2 L 3.5-5.0 g/dL ASSESSMENT: Fungemia. 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 Septic shock, resolving. Anemia requiring blood transfusion, status post EGD. Acute renal failure. Thrombocytopenia, resolving. PLAN: Continue tigecycline IV. Continue micafungin. Continue metronidazole. Continue wound care. [place] Worker following patient. Avoid nephrotoxic medications. Case management working on placement, patient will need 2-3 weeks of IV antibiotics. This case was reviewed and discussed with my supervising physician and the above assessment and plan was formulated and agreed upon. ATTESTATION BY PHYSICIAN I have seen and examined the patient. I reviewed the documentation, medical decision making, and treatment plan as noted by the mid-level provider above. I agree with the findings and plan of care. CECIL ROY MD, [facility] Jun 26, 2024 23:38
[2024-06-27] VITALS (7 sets, daily range): BP systolic 123–146; BP diastolic 64–83; PULSE 55–83; RESP 18–22; TEMP 97.7–98.2; O2SAT 96–97
[2024-06-27 03:58] LABS: BASOPHILS # (AUTO) 0.01 K/uL (0.00-0.20); BASOPHILS % (AUTO) 0.1 % (0.0-5.0); HEMATOCRIT 27.4 % (42-54); IMMATURE GRANULOCYTE ABSOLUTE 0.11 K/uL (0-1); LYMPHOCYTES # (AUTO) 0.4 K/uL (1.0-4.8); LYMPHOCYTES % (AUTO) 3.8 % (21.0-51.0); MEAN CORPUSCULAR HEMOGLOBIN 30.1 pg (27.0-33.0); MEAN CORPUSCULAR HGB CONC 35.4 g/dL (32.0-36.0); MEAN CORPUSCULAR VOLUME 85.1 fL (79-99); MONOCYTES # (AUTO) 0.8 K/uL (0.1-1.0); MONOCYTES % (AUTO) 7.8 % (3.0-13.0); NEUTROPHILS # (AUTO) 8.7 K/uL (1.8-7.7); NEUTROPHILS % (AUTO) 87.2 % (40.0-77.0); PLATELET COUNT (AUTO) 226 K/uL (130-400); RED BLOOD CELL COUNT(AUTO) 3.22 MIL/uL (4.50-6.20); RED CELL DISTRIBUTION WIDTH 15.2 % (11.0-15.5)
[2024-06-27 04:23] LABS: CREATININE 5.9 mg/dL (0.5-1.3); POTASSIUM 4.1 mmol/L (3.5-5.1)
--- NOTE | 2024-06-27 05:43 | NUR ---
pt refused to have blood glucose collected this morning.
--- NOTE | 2024-06-27 14:02 | PN ---
FOLLOWUP PROGRESS NOTE SUBJECTIVE: A 69-year-old male, who has had a prolonged hospital course. The patient has had acute on chronic renal dysfunction in the hospital. The patient with osteomyelitis of the foot, remains on the antibiotics. He has had elevated BUN and creatinine. Urine output has been adequate overnight and the patient is being seen as a followup visit for all of the above. REVIEW OF SYSTEMS: GENERAL: The patient is feeling weak and tired. HEENT: No change in vision. No change in hearing. No nasal discharge. No sore throat. CARDIOVASCULAR: There are no current chest pains or palpitations. PULMONARY: Denies any shortness of breath. GASTROINTESTINAL: He is tolerating a diet. MUSCULOSKELETAL: Complaints of weakness. PHYSICAL EXAMINATION: VITAL SIGNS: Blood pressure is 124/74, pulse in the 60. He is afebrile. GENERAL: He is a chronically old male, elderly lying in bed on medical floor. HEENT: Head is atraumatic. Pupils equal, roving to light. Oropharynx is without exudate. Nares clear. NECK: There is no JVP. There is no thyromegaly or mass. CARDIOVASCULAR: Regular. There is no S3 or S4 gallop. LUNGS: Coarse with equal thoracic movement. ABDOMEN: Soft, nondistended, nontender. EXTREMITIES: Reveal no clubbing or cyanosis. NEUROLOGICAL: He is awake. He is alert. LABORATORY DATA: Hemoglobin 9.7, hematocrit 27, white blood cell count is 10,000. BUN 18, creatinine is 5.9. IMPRESSION: * Acute on chronic renal failure. * Osteomyelitis. * Diabetes mellitus. * Hypertension. PLAN: The patient does have significant renal dysfunction. Creatinine has actually stabilized while in the hospital. Urine output has been adequate. There is no acute need for any form of renal replacement therapy at this time. We will continue to monitor the chemistries closely. The patient remains on the antibiotics. He is being seen by binder caser for final disposition. We will follow closely. TID: [id number] RECEIPT: [id number]
--- NOTE | 2024-06-27 14:46 | PN ---
[facility] PROGRESS NOTE Date Patient Seen: Jun 27, 2024 Time of Visit: 14:46 Supervising Physician: [ ] Supervising Physician: Dr. Evan Patel Primary Care Physician: [None-recently relocated from [place]] Outpatient Specialists: [ ] Inpatient Consults: [facility] team, nephro: Dr. Dowd, cardio: Dr. Bae] PROBLEM LIST: Septic shock, requiring pressor-POA Acute encephalopathy; likely multifactorial infectious, uremic and toxic metabolic-POA Severe metabolic acidosis-POA Acute renal failure, severe-POA Uremia-POA Severe hyperkalemia-POA Resolved Thrombocytopenia-POA Severe lactic acidosis-POA NSTEMI, rule-out demand ischemia vs true cardiac etiology-POA INTERVAL HISTORY: Patient is seen at bedside, he is on 1 L nasal cannula today, white count back within normal limits at 10.0. Patient's hemoglobin remained stable at 9.0. He is AAO x3, continues on Flagyl, tigecycline, micafungin. Patient pending placement at this time, disposition per primary. No nausea or vomiting, no overnight events reported. Patient only endorses continued general body weakness. Remains on O2 Very weak Severely deconditioned poor appetite no nausea or vomiting REVIEW OF SYSTEMS: Unable to perform 12 point ROS due to patient's encephalopathy. PHYSICAL EXAM: GENERAL: Awake, Alert. Generally weak HEENT: Normocephalic, atraumatic, dry mucosa NECK: Supple, no JVD, trachea midline LUNGS: Clear breath sounds bilaterally. No wheezes HEART: Regular rate and rhythm. Normal S1 and S2, positive murmurs , tachycardic ABD: Abdomen soft, nontender. Bowel sounds present EXT: No clubbing, cyanosis, or edema, bilateral feet wound with toe amputations with dressing CDI NEURO: Deferred Vital Signs (last 8hr) Date Time Temp Pulse Resp B/P (MAP) Pulse Ox O2 Delivery O2 Flow Rate FiO2 06/27/24 11:59 97.9 76 18 133/78 94 06/27/24 11:18 96 Nasal Cannula* 2 28 06/27/24 08:22 98.2 83 18 129/64 94 LABS: Hematology Labs: Test 06/27/24 03:47 Range/Units White Blood Count 10.0 4.8-10.8 K/uL Red Blood Count 3.22 L 4.50-6.20 MIL/uL Hemoglobin 9.7 L 14.0-18.0 g/dL Hematocrit 27.4 L 42-54 % Mean Corpuscular Volume 85.1 79-99 fL Mean Corpuscular Hemoglobin 30.1 27.0-33.0 pg Mean Corpuscular Hemoglobin Concent 35.4 32.0-36.0 g/dL Red Cell Distribution Width 15.2 11.0-15.5 % Platelet Count 226 130-400 K/uL Mean Platelet Volume 11.2 H 7.5-10.5 fL Immature Granulocyte % (Auto) 1.1 H 0-1 % Neutrophils (%) (Auto) 87.2 H 40.0-77.0 % Lymphocytes (%) (Auto) 3.8 L 21.0-51.0 % Monocytes (%) (Auto) 7.8 3.0-13.0 % Eosinophils (%) (Auto) 0.0 0.0-8.0 % Basophils (%) (Auto) 0.1 0.0-5.0 % Neutrophils # (Auto) 8.7 H 1.8-7.7 K/uL Lymphocytes # (Auto) 0.4 L 1.0-4.8 K/uL Monocytes # (Auto) 0.8 0.1-1.0 K/uL Eosinophils # (Auto) 0.00 0.00-0.70 K/uL Basophils # (Auto) 0.01 0.00-0.20 K/uL Absolute Immature Granulocyte (auto 0.11 0-1 K/uL Nucleated Red Blood Cells 0.0 0.0-0.19 % Chemistry Labs: Test 06/27/24 11:07 06/27/24 03:47 06/26/24 03:21 Range/Units Whole Blood Glucose 226 H 70-110 MG/DL Sodium Level 139 136-145 mmol/L Potassium Level 4.1 3.5-5.1 mmol/L Chloride Level 99 L 101-111 mmol/L Carbon Dioxide Level 24 21-32 mmol/L Blood Urea Nitrogen 118 *H 7-18 mg/dL Creatinine 5.9 H 0.5-1.3 mg/dL Glomerular Filtration Rate Calc 10 >90 mL/min Random Glucose 178 H 70-105 mg/dL Total Calcium 7.5 L 8.5-10.1 mg/dL Phosphorus Level 6.6 H 2.5-4.9 mg/dL Magnesium Level 1.90 1.80-2.40 mg/dL Total Bilirubin 0.5 0.2-1.0 mg/dL Aspartate Amino Transf (AST/SGOT) 21 10-37 U/L Alanine Aminotransferase (ALT/SGPT) 16 12-78 U/L Alkaline Phosphatase 126 50-136 U/L Total Protein 5.9 L 6.0-8.3 g/dL Albumin 2.2 L 3.5-5.0 g/dL DIAGNOSTICS / RADIOLOGY RESULTS: [ ] PLAN Disposition as per primary case management consult for disposition continue on supplemental oxygen aspiration precautions nutritional support NEURO: Minimize central acting medications as possible. Maintain fall precautions, adequate lighting during the day PULMONARY: Supplemental 02 as needed. Maintain aspiration precautions at all times CARDIOVASCULAR: Follow hemodynamics. Vital signs per facility protocol GI & NUTRITION: Continue with nutritional support. Continue stool softeners and laxatives as needed. KIDNEYS & ELECTROLYTES: Strict monitoring of intake, output and overall fluid balance. Avoid nephrotoxic medications to the extent possible. Medications to be dosed according to renal function. Monitor electrolytes and replace as needed ENDOCRINE: Maintain blood glucose between 100-180 at all times. Hypoglycemia protocol in place INFECTIOUS DISEASE: Trend temperature, WBC and procalcitonin level Follow cultures, deescalate antibiotics as soon as possible. Panculture if new onset fever ONCOLOGY/HEMATOLOGY/COAGULATION: Monitor for s/s of bleeding Monitor hemoglobin, coagulation studies as needed SKIN: Pressure ulcer prevention per facility protocol Specialty mattress ORTHO/REHAB: Continue PT/OT Prophylaxis: Continue GI and DVT prophylaxis Code Status: Full Resuscitation Disposition: as per PCP Total critical care time: 35 minutes. CAIO TRIVEDI Jun 27, 2024 14:46
--- NOTE | 2024-06-27 16:50 | PN ---
[facility] PROGRESS NOTE Date of Service: Jun 27, 2024 Time of Service: 16:20 SUBJECTIVE: Patient is seen and examined at bedside, case discussed with the RN, during my visit the patient resting comfortably in bed, following simple commands, he is on blood pressure support with Levophed, getting sodium bicarbonate IV. BP 108/57, heart rate of 116, saturating 99% on 2 L nasal cannula. Hemoglobin 8.4, hematocrit 27.0, WBC 14.2, platelet count of 28. Sodium 143, potassium 5.0, bicarb of five, BUN 107, creatinine 9.7. ABG with pH of 7.8, pCO2 less than 15, bicarb of 2.3. 06/18 patient has been seen and examined at bedside, case discussed with the RN, patient remains confused, still on pressor support with Levophed and Andrew- Synephrine, patient also on sodium bicarbonate drip. No family members at bedside during my visit. Blood pressure 112/44, heart rate of 91, saturating 93%. CBC with WBC of 16.4, hemoglobin 8.2, hematocrit 23.7, platelet count of 27. Sodium 145, potassium 3.7, BUN of 102, creatinine 10.2, sodium bicarb of 12. ABG with pH of 7.33, pCO2 31, PO2 64, bicarb of 16.1. Septic workup reviewed, blood cultures no growth after 24 hours. Patient getting broad- spectrum IV antibiotics during my visit. CT of the abdomen pelvis probable mild enterocolitis with mild to moderate small and large bowel liquid content, cholelithiasis, urinary wall thickening, more than expected for empty urinary bladder. Mild distal colonic diverticulosis. 06/19 patient is seen and examined at bedside, case discussed with the RN, no acute events overnight, patient is still confused, however less compared to time of admission. Following very simple commands. He is currently off vasopressors. Replace, output since this morning 500 cc. Blood pressure 111/78, afebrile, saturating 96-98% 2 L nasal cannula. WBC trending down at 11.2, hemoglobin 7.6, hematocrit 20.9, platelet count of 14. BUN 108, creatini ne 10.2. ABG shows a pH 7.41, pCO2 37, PO2 81.5, bicarb 23.1. Blood culture showing Alicia tropicalis. Patient has been started on micafungin. Continue antibiotics. Continue critical care input and recommendation, continue Nephrology input and recommendation in terms of renal replacement therapy, continue daily weight, monitor intake and output. Follow anemia workup, stool o ccult blood, serial CBC transfuse 1 unit of PRBC hemoglobin less than seven, we will request Hematology consultation as well. 06/20 patient seen at bedside, no acute events overnight. He is not requiring pressors he is afebrile, hemodynamically stable saturating well on 2 L nasal cannula. Hemoglobin was 6.1 and platelets low at night, we will be transfused with packed red blood cells and platelets per critical Care, we will follow up post transfusion. Potassium decreased from 3.4 down to 3.2, creatinine stable at 10.2, we will follow up with Nephrology for recommendations. Urine output is improving, he has been started on Lasix, we will follow up. Patient continues on micafungin. Pt reticulocyte count low at 0.18 suggesting decreased production of RBC, FOBT positive as well concerning for GI Bleed. Will consult hematology and GI and follow up 06/21 patient seen at bedside, no acute events overnight. He has been afebrile, hemodynamically stable saturating well on 2 L nasal cannula. He has been NPO h owever he has no history of volume overload, and his kidney function is decreased, we will perfuse his kidneys with some IV fluids and allow clear liquid diet. Creatinine stable at 9.9, same as yesterday, potassium decreased at 3.0, nephrology to manage potassium levels until renal function improves. Hemoglobin improved from 8.0 up to 8.7, remainder of his labs are relatively unr emarkable. 06/22 Pt seen at bedside, no acute events overnight. He has been downgraded from ICU. He has been afebrile, hemodynamically stable, saturating well on room air. Hgb stable at 8.6, similar to yesterday, platelets decreased from 102 down to 82, potassium low at 2.7, will be repleted according to protocol, creatinine improved from 9.9 down to 8.5, sodium improved from 150 down to 146, remainder of his labs are relatively unremarkable. Urine output adequate, approximately 2.3L output in the last 24 hours. On physical exam, no evidence of volume overflow, will continue with IV fluids to perfuse his kidneys. Left foot gr owing mullins-resistant organism, ID to adjust antibiotics 06/23 patient seen at bedside, no acute events overnight. He is pending EGD with GI today, we will follow up postprocedure. He has been afebrile, hemodynamically stable, mildly hypertensive with systolics in the 150s, saturating well on 3 L nasal cannula. Hemoglobin improved from 8.6 up to 9.0, platelets decreased from 82 down to 78, creatinine continues to improve from 8.5 down to 7.2 with adequate urine output. Potassium low at 3.1, we will be rep leted according to potassium protocol. Patient weak and feeble, we will likely need transitioned to correction facility, case management to assist with placement. He will continue daily physical therapy. 06/24 patient seen at bedside, no acute events overnight. EGD was done yesterday no evidence of bleed noted. Patient refusing colonoscopy. Hgb is uptrending from 9.0 up to 9.3 suggesting resolution of GI bleed, platelets improved from 78 up to 87, creatinine improved from 7.2 down to 6.4, potassium low at 3.4, will be repleted according to protocol. Patient will need placement for IV antibiotics 06/25 patient seen at bedside, no acute events overnight. Continues to refuse colonoscopy yesterday he went into AFib with RVR was started on IV amiodarone. He was rate controlled today, likely we will be transitioned to p.o. amiodarone. Now pending placement to continue IV antibiotic and antifungal therapy. We will follow up with case management and Cardiology. Creatinine improved from 6.4 down to 5.9, BUN still elevated at 112. Potassium low at 2.9 will be repleted according to protocol and will give an extra 80meq supplementation. 06/26 patient seen at bedside, no acute events overnight. He has been afebrile, hemodynamically stable saturating well on room air. WBC increased from 11.3 up to 13.1, hemoglobin stable at 9.7, same as yesterday, creatinine stable at 5.9, same as yesterday, BUN increased from 112 up to 117, remainder of his labs are relatively unremarkable. Proximally 1.1 L urine output in the last 24 hours. He is pending placement 06/27 Pt seen at bedside, no acute events overnight. He remains stable, vitals u nremarkable. Pending placement REVIEW OF SYSTEMS 12 point review of systems negative unless noted in HPI PHYSICAL EXAM GENERAL APPEARANCE: The patient remains confused. Withdrawing to painful stimulation. NEUROLOGICAL: Cranial nerves II-XII grossly intact. Motor is 5/5 in bilateral upper and lower extremities proximal to distal. No sensory deficits. HEENT: Face is symmetric. Pupils are equal and reactive. Extraocular movements are intact. NECK: Supple. No JVD. No thyromegaly. No submental, submandibular, pre- /postauricular, occipital or supraclavicular lymphadenopathy. CHEST: Normal chest expansion. No Telemetry. LUNGS: Absence of any rales, rhonchi or any wheezing. CARDIOVASCULAR: Regular. S1 and S2 normal. No appreciable rubs, murmurs or gallops. ABDOMEN: Soft, nontender, and nondistended. There is no rebound, voluntary guarding, or rigidity. : Deferred. No Gallagher. EXTREMITIES: Non-edematous and not cyanotic. No clubbing. Good capillary refill. SKIN: No skin breakdown. Vital Signs (last 8hr) Date Time Temp Pulse Resp B/P (MAP) Pulse Ox O2 Delivery O2 Flow Rate FiO2 06/27/24 11:59 97.9 76 18 133/78 94 06/27/24 11:18 96 Nasal Cannula* 2 28 06/27/24 08:22 98.2 83 18 129/64 94 LABS: Laboratory: Test 06/27/24 16:14 06/27/24 03:47 06/26/24 03:21 Range/Units Whole Blood Glucose 194 H 70-110 MG/DL White Blood Count 10.0 4.8-10.8 K/uL Red Blood Count 3.22 L 4.50-6.20 MIL/uL Hemoglobin 9.7 L 14.0-18.0 g/dL Hematocrit 27.4 L 42-54 % Mean Corpuscular Volume 85.1 79-99 fL Mean Corpuscular Hemoglobin 30.1 27.0-33.0 pg Mean Corpuscular Hemoglobin Concent 35.4 32.0-36.0 g/dL Red Cell Distribution Width 15.2 11.0-15.5 % Platelet Count 226 130-400 K/uL Mean Platelet Volume 11.2 H 7.5-10.5 fL Immature Granulocyte % (Auto) 1.1 H 0-1 % Neutrophils (%) (Auto) 87.2 H 40.0-77.0 % Lymphocytes (%) (Auto) 3.8 L 21.0-51.0 % Monocytes (%) (Auto) 7.8 3.0-13.0 % Eosinophils (%) (Auto) 0.0 0.0-8.0 % Basophils (%) (Auto) 0.1 0.0-5.0 % Neutrophils # (Auto) 8.7 H 1.8-7.7 K/uL Lymphocytes # (Auto) 0.4 L 1.0-4.8 K/uL Monocytes # (Auto) 0.8 0.1-1.0 K/uL Eosinophils # (Auto) 0.00 0.00-0.70 K/uL Basophils # (Auto) 0.01 0.00-0.20 K/uL Absolute Immature Granulocyte (auto 0.11 0-1 K/uL Nucleated Red Blood Cells 0.0 0.0-0.19 % Sodium Level 139 136-145 mmol/L Potassium Level 4.1 3.5-5.1 mmol/L Chloride Level 99 L 101-111 mmol/L Carbon Dioxide Level 24 21-32 mmol/L Blood Urea Nitrogen 118 *H 7-18 mg/dL Creatinine 5.9 H 0.5-1.3 mg/dL Glomerular Filtration Rate Calc 10 >90 mL/min Random Glucose 178 H 70-105 mg/dL Total Calcium 7.5 L 8.5-10.1 mg/dL Phosphorus Level 6.6 H 2.5-4.9 mg/dL Magnesium Level 1.90 1.80-2.40 mg/dL Total Bilirubin 0.5 0.2-1.0 mg/dL Aspartate Amino Transf (AST/SGOT) 21 10-37 U/L Alanine Aminotransferase (ALT/SGPT) 16 12-78 U/L Alkaline Phosphatase 126 50-136 U/L Total Protein 5.9 L 6.0-8.3 g/dL Albumin 2.2 L 3.5-5.0 g/dL Current Medications Medications (Trade) Dose Ordered Sig/Roderick Route PRN Reason Start Time Stop Time Status Last Admin Dose Admin Albuterol Sulfate (Proventil 0.083% 2.5mg/3ml) 10 mg ONCE STAT IH 06/17/24 04:05 06/17/24 04:12 DC 06/17/24 04:31 10 MG Amiodarone HCl 360 mg/Dextrose 200 ml @ 0 mls/hr PROTOCOL IV 06/24/24 14:30 06/25/24 09:16 DC 06/24/24 15:51 33.33 MLS/HR Amiodarone HCl 540 mg/Dextrose 300 ml @ 0 mls/hr PROTOCOL IV 06/24/24 21:00 07/24/24 20:59 06/24/24 20:42 16.7 MLS/HR Amlodipine Besylate (NorvASC 5MG TAB) 5 mg BID PO 06/22/24 09:00 07/22/24 08:59 06/27/24 09:23 5 MG Apixaban (EliquIS) 5 mg BID PO 06/24/24 14:30 07/24/24 14:29 06/27/24 09:23 5 MG Calcium Carbonate (Tums 500 Mg Chew Tab) 500 tab ONCE PO 06/26/24 15:30 07/26/24 15:29 Cancel Calcium Gluconate (Calcium Gluc 1gm Vial) 1 gm AD STAT IV 06/17/24 04:05 06/17/24 04:12 DC 06/17/24 04:21 1 GM Cefepime HCl (MAXipime 1 GM vial) 0.25 gm Q24H IVPB 06/17/24 04:00 06/18/24 04:06 DC 06/17/24 04:58 0.25 GM Cefepime HCl (MAXipime 1 GM vial) 1 gm Q24H IVPB 06/20/24 05:00 06/22/24 16:09 DC 06/22/24 03:12 1 GM Cefepime HCl 0.25 gm/Sodium Chloride 50 ml @ 100 mls/hr Q24H IVPB 06/18/24 04:30 06/19/24 10:58 DC 06/19/24 05:26 100 MLS/HR Dextrose (D50w) 50 ml AD PRN IV HYPOGLYCEMIA PROTOCOL 06/17/24 01:00 06/17/24 01:01 DC Dextrose (D50w) 50 ml AD PRN IV HYPOGLYCEMIA PROTOCOL 06/17/24 01:00 07/17/24 00:59 Dextrose (D50w) 50 ml ONCE STAT IV 06/17/24 04:05 06/17/24 04:12 DC 06/17/24 04:21 50 ML Epoetin Rylan-epbx (Retacrit) 10,000 unit [id number] SQ 06/24/24 14:00 06/24/24 13:53 DC Epoetin Rylan-epbx (Retacrit) 10,000 unit QWEEK SQ 06/24/24 14:00 07/24/24 13:59 06/24/24 14:37 10,000 UNIT Famotidine (Pepcid 20mg Vial) 20 mg Q48H IV 06/17/24 01:00 07/17/24 00:59 06/27/24 00:54 20 MG Folic Acid (FOLic ACID 1 MG TABLET) 1 mg DAILY PO 06/25/24 09:00 07/25/24 08:59 06/27/24 09:23 1 MG Furosemide (LASix 40MG VIAL) 40 mg Q8H IV 06/19/24 18:30 06/20/24 18:31 DC 06/20/24 18:54 40 MG Glucagon (Glucagon 1mg Kit) 1 mg AD PRN IM HYPOGLYCEMIA PROTOCOL 06/17/24 01:00 06/17/24 01:01 DC Glucagon (Glucagon 1mg Kit) 1 mg AD PRN IM HYPOGLYCEMIA PROTOCOL 06/17/24 01:00 07/17/24 00:59 Hydralazine HCl ([id number] TAB) 25 mg TID PO 06/22/24 09:00 07/22/24 08:59 06/27/24 14:36 25 MG Hydrocortisone Sodium Succinate (Solu-corTEF 100MG) 50 mg ONCE@1930 IV 06/22/24 19:30 06/22/24 22:30 DC 06/22/24 19:59 50 MG Hydrocortisone Sodium Succinate (Solu-corTEF 100MG) 50 mg Q8H IV 06/18/24 11:30 06/22/24 15:46 DC 06/22/24 03:12 50 MG Hydrocortisone Sodium Succinate (Solu-corTEF 100MG) 50 mg Q8H6 IV 06/23/24 06:00 07/23/24 05:59 06/27/24 14:37 50 MG Hydromorphone HCl (DiLAUDid 0.5MG INJ) 0.5 mg Q4H PRN IVP SEVERE PAIN (7-10) 06/20/24 13:00 06/25/24 12:59 DC 06/21/24 23:50 0.5 MG Insulin Human Regular (humuLIN R 100 UNIT/ML 3ML) 10 unit ONCE STAT IV 06/17/24 04:05 06/17/24 04:12 DC 06/17/24 04:28 10 UNIT Insulin Human Regular (humuLIN R 100 UNIT/ML 3ML) INSULIN SLIDING SCAL... ACHS SQ 06/17/24 07:30 07/17/24 07:29 06/27/24 12:11 4 UNIT Lactated Ringer's 1,000 ml @ 130 mls/hr Q7H42M IV 06/21/24 09:30 07/21/24 09:29 06/27/24 13:34 130 MLS/HR Leptospermum Honey (Medihoney) 1 appl DAILY TP 06/19/24 09:00 07/19/24 08:59 06/27/24 09:24 1 APPL Magnesium Sulfate 50 ml @ 0 mls/hr PROTOCOL PRN IV MAGNESIUM PROTOCOL 06/23/24 11:30 07/23/24 11:29 06/24/24 05:57 25 MLS/HR Metoprolol Tartrate (loprESSOR) 25 mg BID PO 06/24/24 14:30 07/24/24 14:29 06/27/24 09:23 25 MG Metronidazole/ Sodium Chloride (flaGYL) 500 mg Q8H IV 06/17/24 05:00 06/27/24 04:59 DC 06/26/24 21:48 500 MG Micafungin Sodium 100 ml @ 100 mls/hr Q24H IV 06/18/24 00:00 07/18/24 00:00 06/27/24 00:55 100 MLS/HR Norepinephrine 250 ml @ 0 mls/hr PROTOCOL IV 06/16/24 22:00 06/22/24 07:20 DC 06/17/24 05:33 24.5 MLS/HR Ondansetron HCl (zoFRAN 4MG INJ) 4 mg Q6H PRN IVP NAUSEA/VOMITING 06/23/24 20:30 07/23/24 20:29 06/23/24 20:10 4 MG Pharmacy Profile Note (Lace Assessment) 1 each AD MISC 4/18/25 15:30 06/20/24 12:49 DC Pharmacy Profile Note (Pharmacy Communication) 1 each ONCE MISC 06/17/24 23:00 06/19/24 07:13 DC 06/17/24 23:31 1 EACH Pharmacy Profile Note (Pharmacy Communication) 1 each ONCE MISC 06/22/24 16:30 06/23/24 07:22 DC Phenylephrine HCl 100 mg/Sodium Chloride 250 ml @ 0 mls/hr AD PRN IV TITRATE 06/17/24 10:30 06/22/24 07:20 DC 06/18/24 05:48 27 MLS/HR Piperacillin Sod/ Tazobactam Sod (Zosyn 3.375gm+NS 50ml) 3.375 gm Q12H IV 06/16/24 21:30 06/17/24 01:03 DC 06/16/24 21:42 3.375 GM Piperacillin Sod/ Tazobactam Sod (Zosyn 3.375gm+NS 50ml) 3.375 gm Q12H IVPB 06/17/24 01:00 06/17/24 04:00 DC 06/17/24 02:54 3.375 GM Potassium Chloride 100 ml @ 100 mls/hr AD PRN IV POTASSIUM PROTOCOL 06/21/24 08:00 07/21/24 07:59 06/24/24 05:57 100 MLS/HR Potassium Chloride 100 ml @ 100 mls/hr AD PRN IV POTASSIUM PROTOCOL 06/23/24 11:30 07/23/24 11:29 Potassium Chloride (K-Dur/Klor-Con 20meq) 20 meq AD PRN PO POTASSIUM PROTOCOL 06/23/24 11:30 07/23/24 11:29 Potassium Chloride (K-Dur/Klor-Con 20meq) 40 meq BID PO 06/22/24 09:00 06/22/24 21:01 DC 06/22/24 19:54 40 MEQ Potassium Chloride (K-Dur/Klor-Con 20meq) 40 meq BID PO 06/25/24 09:00 07/25/24 08:59 06/27/24 09:23 40 MEQ Potassium Chloride (KCl 10% Elixir 20meq/15ml) 20 meq AD PRN PO POTASSIUM PROTOCOL 06/23/24 11:30 07/23/24 11:29 Sodium Bicarbonate / Dextrose 1,000 ml @ 0 mls/hr Q0M IVP 06/17/24 05:00 06/17/24 04:58 DC Sodium Bicarbonate 150 meq/Dextrose 1,150 ml @ 50 mls/hr Q23H IVP 06/18/24 08:00 06/19/24 12:24 DC 06/18/24 20:23 100 MLS/HR Sodium Bicarbonate 150 meq/Dextrose 1,150 ml @ 100 mls/hr [id number] IVP 06/17/24 05:00 06/18/24 04:44 DC 06/17/24 21:00 100 MLS/HR Sodium Polystyrene Sulfonate (kayEXALate 15 GM/60 ML) 15 gm Q2H PO 06/16/24 21:30 06/16/24 23:31 DC 06/16/24 22:21 15 GM Sodium Chloride 1,000 ml @ 150 mls/hr Q6H40M IV 06/16/24 23:00 06/17/24 09:10 DC 06/17/24 05:15 150 MLS/HR Sodium Chloride (NS 50ml) 50 ml AD IV 06/17/24 01:00 06/17/24 01:05 DC Thiamine HCl (Vitamin B-1) 100 mg DAILY IVP 06/17/24 09:00 07/17/24 08:59 06/27/24 09:22 100 MG Tigecycline 100 mg/Sodium Chloride 100 ml @ 200 mls/hr ONCE IV 06/22/24 16:30 06/23/24 07:21 DC 06/22/24 18:51 200 MLS/HR Tigecycline 50 mg/ Sodium Chloride 100 ml @ 200 mls/hr BID@0600,1800 IV 06/23/24 06:00 06/30/24 05:59 06/27/24 05:45 200 MLS/HR Vancomycin HCl (Vancomycin 750mg) 750 mg Q96H IVPB 06/20/24 22:00 06/17/24 14:00 DC Vancomycin HCl (Vancomycin Protocol) 1 each AD IV 06/17/24 01:30 06/17/24 14:01 DC Vitamin B Complex/ Vit C/Folic Acid (Nephrovite Tablet) 1 cap DAILY PO 06/24/24 09:00 07/24/24 08:59 06/27/24 09:22 1 CAP DIAGNOSTICS / RADIOLOGY: [ ] ASSESSMENT: Severe metabolic acidosis, resolved POA Septic shock requiring vasopressor, resolved POA Paroxysmal afib with RVR Fungemia 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 Nephrology consulted, appreciate recommendations Start LR @ 130 cc/hr Start clear liquid diet Continue furosemide GI consulted, appreciate recommendations Hematology consulted, appreciate recommendations Anemia workup. Transfuse as needed. Hematology consultation requested per Follow critical care input and recommendation Disposition: Pending placement, antibiotics, transition to PO amiodarone AL CARDONA MD Jun 27, 2024 16:50
[2024-06-28] VITALS (8 sets, daily range): BP systolic 121–172; BP diastolic 56–82; PULSE 56–78; RESP 18–21; TEMP 97–97.9; O2SAT 96–97
[2024-06-28 05:58] LABS: HEMATOCRIT 26.8 % (42-54); IMMATURE GRANULOCYTE ABSOLUTE 0.08 K/uL (0-1); LYMPHOCYTES # (AUTO) 0.5 K/uL (1.0-4.8); LYMPHOCYTES % (AUTO) 5.4 % (21.0-51.0); MEAN CORPUSCULAR HEMOGLOBIN 30.4 pg (27.0-33.0); MEAN CORPUSCULAR HGB CONC 34.7 g/dL (32.0-36.0); MEAN CORPUSCULAR VOLUME 87.6 fL (79-99); MONOCYTES # (AUTO) 0.9 K/uL (0.1-1.0); MONOCYTES % (AUTO) 9.6 % (3.0-13.0); NEUTROPHILS # (AUTO) 7.8 K/uL (1.8-7.7); NEUTROPHILS % (AUTO) 84.1 % (40.0-77.0); PLATELET COUNT (AUTO) 266 K/uL (130-400); RED BLOOD CELL COUNT(AUTO) 3.06 MIL/uL (4.50-6.20); RED CELL DISTRIBUTION WIDTH 15.7 % (11.0-15.5); WHITE BLOOD COUNT (AUTO) 9.3 K/uL (4.8-10.8)
[2024-06-28 06:16] LABS: CREATININE 5.9 mg/dL (0.5-1.3); POTASSIUM 3.9 mmol/L (3.5-5.1)
--- NOTE | 2024-06-28 07:17 | PN ---
INFECTIOUS DISEASE FOLLOWUP NOTE DATE OF SERVICE: 06/27/2024 SUBJECTIVE: The patient is seen and examined at bedside today. The patient has no fever, no chills. No nausea, vomiting. No sore throat or rhinorrhea. No bleeding tendencies. No depression or suicidal ideation. No dysuria or hematuria. No neck pain or neck swelling. PHYSICAL EXAMINATION: VITAL SIGNS: Temperature 97.4. EYES: No icterus. Pupils are equal and reactive. HENT: No oral thrush seen. Moist oral mucosa. NECK: Supple. No JVD or thyromegaly. LUNGS: Good air entry. No rales. No rhonchi. CARDIOVASCULAR: S1 and S2 regular. No murmur heard. ABDOMEN: Obese, soft and nontender. Bowel sound is present. CENTRAL NERVOUS SYSTEM: Awake, alert, and oriented x 3. No focal deficits. SKIN: No rashes. No itchiness. LYMPHATIC: No peripheral lymphadenopathy. BACK: No deformity or pressure ulcer. ASSESSMENT: A 69-year-old male with multiple problems which include: * Septic shock. * Fungemia. * Urinary tract infection. * Anemia. * Atrial fibrillation. * Respiratory failure. * GI bleed. * Obesity. PLAN: * Continue micafungin. * Continue tigecycline. * Continue pain management. * Continue wound care. * Continue GI prophylaxis. * Monitor electrolytes. * The patient will be followed up closely. TID: [id number] RECEIPT: [id number]
[2024-06-28] MEDS: LACTOBACILLUS RHAMNOSUS GG 1 EACH CAP.SPRINK PO SCH (10:20)
[2024-06-28] MEDS: furoSEMIDE 40MG VIAL IV ONE (10:21)
--- NOTE | 2024-06-28 11:11 | PN ---
[facility] PROGRESS NOTE Date Patient Seen: Jun 28, 2024 Time of Visit: 11:07 Supervising Physician: Evan Patel MD Supervising Physician: Dr. Evan Patel Primary Care Physician: [None-recently relocated from [place]] Outpatient Specialists: [ ] Inpatient Consults: [facility] team, nephro: Dr. Dowd, cardio: Dr. Bae] PROBLEM LIST: Septic shock, requiring pressor-POA , resolved Acute encephalopathy; likely multifactorial infectious, uremic and toxic metabolic-POA, resolved Severe metabolic acidosis-POA , resolved Acute renal failure on CKD, severe-POA Uremia-POA Enterocolitis POA Cholelithiasis Mild Distal colonic Diverticulosis POA Severe hyperkalemia-POA Resolved Thrombocytopenia-POA. resolved Severe lactic acidosis-POA NSTEMI, rule-out demand ischemia vs true cardiac etiology-POA INTERVAL HISTORY: Patient reports feeling nauseated. Had one episode of emesis this morning. Zofran given with relief. WBCs 9.3 normalized today H&H 9.3/26.8 and platelet count is normal. Chemistry BUN is 123 creatinine 5.9 urine output has been marginal with a GFR of 10. Per Nephrology start Lasix 40 mg IV q.12 nurses function does not improve patient may require dialysis. Patient to continue tigecycline and micafungin per ID specialist recommendation. REVIEW OF SYSTEMS: Unable to perform 12 point ROS due to patient's encephalopathy. PHYSICAL EXAM: GENERAL: Awake, Alert. Generally weak HEENT: Normocephalic, atraumatic, dry mucosa NECK: Supple, no JVD, trachea midline LUNGS: Clear breath sounds bilaterally. No wheezes HEART: Regular rate and rhythm. Normal S1 and S2, positive murmurs , tachycardic ABD: Abdomen soft, nontender. Bowel sounds present EXT: No clubbing, cyanosis, or edema, bilateral feet wound with toe amputations with dressing CDI NEURO: Awake alert and oriented x 3 Vital Signs (last 8hr) Date Time Temp Pulse Resp B/P (MAP) Pulse Ox O2 Delivery O2 Flow Rate FiO2 06/28/24 07:22 97.9 71 18 123/76 94 Nasal Cannula 2.0 06/28/24 03:52 97.0 71 20 121/82 95 Nasal Cannula 2.0 LABS: Hematology Labs: Test 06/28/24 05:48 Range/Units White Blood Count 9.3 4.8-10.8 K/uL Red Blood Count 3.06 L 4.50-6.20 MIL/uL Hemoglobin 9.3 L 14.0-18.0 g/dL Hematocrit 26.8 L 42-54 % Mean Corpuscular Volume 87.6 79-99 fL Mean Corpuscular Hemoglobin 30.4 27.0-33.0 pg Mean Corpuscular Hemoglobin Concent 34.7 32.0-36.0 g/dL Red Cell Distribution Width 15.7 H 11.0-15.5 % Platelet Count 266 130-400 K/uL Mean Platelet Volume 11.4 H 7.5-10.5 fL Immature Granulocyte % (Auto) 0.9 0-1 % Neutrophils (%) (Auto) 84.1 H 40.0-77.0 % Lymphocytes (%) (Auto) 5.4 L 21.0-51.0 % Monocytes (%) (Auto) 9.6 3.0-13.0 % Eosinophils (%) (Auto) 0.0 0.0-8.0 % Basophils (%) (Auto) 0.0 0.0-5.0 % Neutrophils # (Auto) 7.8 H 1.8-7.7 K/uL Lymphocytes # (Auto) 0.5 L 1.0-4.8 K/uL Monocytes # (Auto) 0.9 0.1-1.0 K/uL Eosinophils # (Auto) 0.00 0.00-0.70 K/uL Basophils # (Auto) 0.00 0.00-0.20 K/uL Absolute Immature Granulocyte (auto 0.08 0-1 K/uL Nucleated Red Blood Cells 0.0 0.0-0.19 % Chemistry Labs: Test 06/28/24 05:48 06/28/24 05:22 Range/Units Sodium Level 141 136-145 mmol/L Potassium Level 3.9 3.5-5.1 mmol/L Chloride Level 104 101-111 mmol/L Carbon Dioxide Level 22 21-32 mmol/L Blood Urea Nitrogen 123 *H 7-18 mg/dL Creatinine 5.9 H 0.5-1.3 mg/dL Glomerular Filtration Rate Calc 10 >90 mL/min Random Glucose 115 H 70-105 mg/dL Total Calcium 7.4 L 8.5-10.1 mg/dL Whole Blood Glucose 119 H 70-110 MG/DL DIAGNOSTICS / RADIOLOGY RESULTS: PLAN Disposition as per primary Pending SNF continue on supplemental oxygen aspiration precautions nutritional support NEURO: Minimize central acting medications as possible. Maintain fall precautions, adequate lighting during the day PULMONARY: Supplemental 02 as needed. Maintain aspiration precautions at all times CARDIOVASCULAR: Follow hemodynamics. Vital signs per facility protocol GI & NUTRITION: Continue with nutritional support. Continue stool softeners and laxatives as needed. KIDNEYS & ELECTROLYTES: Strict monitoring of intake, output and overall fluid balance. Avoid nephrotoxic medications to the extent possible. Medications to be dosed according to renal function. Monitor electrolytes and replace as needed ENDOCRINE: Maintain blood glucose between 100-180 at all times. Hypoglycemia protocol in place INFECTIOUS DISEASE: Trend temperature, WBC and procalcitonin level Follow cultures, deescalate antibiotics as soon as possible. Panculture if new onset fever ONCOLOGY/HEMATOLOGY/COAGULATION: Monitor for s/s of bleeding Monitor hemoglobin, coagulation studies as needed SKIN: Pressure ulcer prevention per facility protocol Specialty mattress ORTHO/REHAB: Continue PT/OT Prophylaxis: Continue GI and DVT prophylaxis Code Status: Full Resuscitation Disposition: as per PCP Total critical care time: 35 minutes. ATTESTATION BY PHYSICIAN I attest that I reviewed and discussed the case with the Physician Director Of Digital Technology as well as agree with the Physician Director Of Digital Technology's findings, plans of care, and documentation above. Evan Hsieh MD, NELLY J ARNP Jun 28, 2024 11:11
[2024-06-28] MEDS: CALCIUM CARB 500MG CHEW TAB PO PRN (12:13)
[2024-06-28] MEDS: SUCRALFATE 1 GM TABLET PO SCH (12:44)
--- NOTE | 2024-06-28 12:56 | PN ---
[facility] PROGRESS NOTE Date of Service: Jun 28, 2024 Time of Service: 12:52 SUBJECTIVE: Patient is seen and examined at bedside, case discussed with the RN, during my visit the patient resting comfortably in bed, following simple commands, he is on blood pressure support with Levophed, getting sodium bicarbonate IV. BP 108/57, heart rate of 116, saturating 99% on 2 L nasal cannula. Hemoglobin 8.4, hematocrit 27.0, WBC 14.2, platelet count of 28. Sodium 143, potassium 5.0, bicarb of five, BUN 107, creatinine 9.7. ABG with pH of 7.8, pCO2 less than 15, bicarb of 2.3. 06/18 patient has been seen and examined at bedside, case discussed with the RN, patient remains confused, still on pressor support with Levophed and Andrew- Synephrine, patient also on sodium bicarbonate drip. No family members at bedside during my visit. Blood pressure 112/44, heart rate of 91, saturating 93%. CBC with WBC of 16.4, hemoglobin 8.2, hematocrit 23.7, platelet count of 27. Sodium 145, potassium 3.7, BUN of 102, creatinine 10.2, sodium bicarb of 12. ABG with pH of 7.33, pCO2 31, PO2 64, bicarb of 16.1. Septic workup reviewed, blood cultures no growth after 24 hours. Patient getting broad- spectrum IV antibiotics during my visit. CT of the abdomen pelvis probable mild enterocolitis with mild to moderate small and large bowel liquid content, cholelithiasis, urinary wall thickening, more than expected for empty urinary bladder. Mild distal colonic diverticulosis. 06/19 patient is seen and examined at bedside, case discussed with the RN, no acute events overnight, patient is still confused, however less compared to time of admission. Following very simple commands. He is currently off vasopressors. Replace, output since this morning 500 cc. Blood pressure 111/78, afebrile, saturating 96-98% 2 L nasal cannula. WBC trending down at 11.2, hemoglobin 7.6, hematocrit 20.9, platelet count of 14. BUN 108, creatini ne 10.2. ABG shows a pH 7.41, pCO2 37, PO2 81.5, bicarb 23.1. Blood culture showing Alicia tropicalis. Patient has been started on micafungin. Continue antibiotics. Continue critical care input and recommendation, continue Nephrology input and recommendation in terms of renal replacement therapy, continue daily weight, monitor intake and output. Follow anemia workup, stool o ccult blood, serial CBC transfuse 1 unit of PRBC hemoglobin less than seven, we will request Hematology consultation as well. 06/20 patient seen at bedside, no acute events overnight. He is not requiring pressors he is afebrile, hemodynamically stable saturating well on 2 L nasal cannula. Hemoglobin was 6.1 and platelets low at night, we will be transfused with packed red blood cells and platelets per critical Care, we will follow up post transfusion. Potassium decreased from 3.4 down to 3.2, creatinine stable at 10.2, we will follow up with Nephrology for recommendations. Urine output is improving, he has been started on Lasix, we will follow up. Patient continues on micafungin. Pt reticulocyte count low at 0.18 suggesting decreased production of RBC, FOBT positive as well concerning for GI Bleed. Will consult hematology and GI and follow up 06/21 patient seen at bedside, no acute events overnight. He has been afebrile, hemodynamically stable saturating well on 2 L nasal cannula. He has been NPO h owever he has no history of volume overload, and his kidney function is decreased, we will perfuse his kidneys with some IV fluids and allow clear liquid diet. Creatinine stable at 9.9, same as yesterday, potassium decreased at 3.0, nephrology to manage potassium levels until renal function improves. Hemoglobin improved from 8.0 up to 8.7, remainder of his labs are relatively unr emarkable. 06/22 Pt seen at bedside, no acute events overnight. He has been downgraded from ICU. He has been afebrile, hemodynamically stable, saturating well on room air. Hgb stable at 8.6, similar to yesterday, platelets decreased from 102 down to 82, potassium low at 2.7, will be repleted according to protocol, creatinine improved from 9.9 down to 8.5, sodium improved from 150 down to 146, remainder of his labs are relatively unremarkable. Urine output adequate, approximately 2.3L output in the last 24 hours. On physical exam, no evidence of volume overflow, will continue with IV fluids to perfuse his kidneys. Left foot gr owing mullins-resistant organism, ID to adjust antibiotics 06/23 patient seen at bedside, no acute events overnight. He is pending EGD with GI today, we will follow up postprocedure. He has been afebrile, hemodynamically stable, mildly hypertensive with systolics in the 150s, saturating well on 3 L nasal cannula. Hemoglobin improved from 8.6 up to 9.0, platelets decreased from 82 down to 78, creatinine continues to improve from 8.5 down to 7.2 with adequate urine output. Potassium low at 3.1, we will be rep leted according to potassium protocol. Patient weak and feeble, we will likely need transitioned to senior living facility, case management to assist with placement. He will continue daily physical therapy. 06/24 patient seen at bedside, no acute events overnight. EGD was done yesterday no evidence of bleed noted. Patient refusing colonoscopy. Hgb is uptrending from 9.0 up to 9.3 suggesting resolution of GI bleed, platelets improved from 78 up to 87, creatinine improved from 7.2 down to 6.4, potassium low at 3.4, will be repleted according to protocol. Patient will need placement for IV antibiotics 06/25 patient seen at bedside, no acute events overnight. Continues to refuse colonoscopy yesterday he went into AFib with RVR was started on IV amiodarone. He was rate controlled today, likely we will be transitioned to p.o. amiodarone. Now pending placement to continue IV antibiotic and antifungal therapy. We will follow up with case management and Cardiology. Creatinine improved from 6.4 down to 5.9, BUN still elevated at 112. Potassium low at 2.9 will be repleted according to protocol and will give an extra 80meq supplementation. 06/26 patient seen at bedside, no acute events overnight. He has been afebrile, hemodynamically stable saturating well on room air. WBC increased from 11.3 up to 13.1, hemoglobin stable at 9.7, same as yesterday, creatinine stable at 5.9, same as yesterday, BUN increased from 112 up to 117, remainder of his labs are relatively unremarkable. Proximally 1.1 L urine output in the last 24 hours. He is pending placement 06/27 Pt seen at bedside, no acute events overnight. He remains stable, vitals u nremarkable. Pending placement 06/28 patient seen at bedside, no acute events overnight. His urine output has been decreasing, his BUN is up trending and his creatinine stable at 5.9. Discuss with Nephrology and we will hold the IV fluids and start a short course of Lasix to see his response. If he does not improve he may end up needing renal replacement therapy. Remainder of his vitals and labs are unremarkable. REVIEW OF SYSTEMS 12 point review of systems negative unless noted in HPI PHYSICAL EXAM GENERAL APPEARANCE: The patient remains confused. Withdrawing to painful stimulation. NEUROLOGICAL: Cranial nerves II-XII grossly intact. Motor is 5/5 in bilateral upper and lower extremities proximal to distal. No sensory deficits. HEENT: Face is symmetric. Pupils are equal and reactive. Extraocular movements are intact. NECK: Supple. No JVD. No thyromegaly. No submental, submandibular, pre- /postauricular, occipital or supraclavicular lymphadenopathy. CHEST: Normal chest expansion. No Telemetry. LUNGS: Absence of any rales, rhonchi or any wheezing. CARDIOVASCULAR: Regular. S1 and S2 normal. No appreciable rubs, murmurs or gallops. ABDOMEN: Soft, nontender, and nondistended. There is no rebound, voluntary guarding, or rigidity. : Deferred. No Gallagher. EXTREMITIES: Non-edematous and not cyanotic. No clubbing. Good capillary refill. SKIN: No skin breakdown. Vital Signs (last 8hr) Date Time Temp Pulse Resp B/P (MAP) Pulse Ox O2 Delivery O2 Flow Rate FiO2 06/28/24 11:17 97.9 76 18 121/69 98 Nasal Cannula 2.0 06/28/24 07:22 97.9 71 18 123/76 94 Nasal Cannula 2.0 LABS: Laboratory: Test 06/28/24 11:21 06/28/24 05:48 Range/Units Whole Blood Glucose 160 H 70-110 MG/DL White Blood Count 9.3 4.8-10.8 K/uL Red Blood Count 3.06 L 4.50-6.20 MIL/uL Hemoglobin 9.3 L 14.0-18.0 g/dL Hematocrit 26.8 L 42-54 % Mean Corpuscular Volume 87.6 79-99 fL Mean Corpuscular Hemoglobin 30.4 27.0-33.0 pg Mean Corpuscular Hemoglobin Concent 34.7 32.0-36.0 g/dL Red Cell Distribution Width 15.7 H 11.0-15.5 % Platelet Count 266 130-400 K/uL Mean Platelet Volume 11.4 H 7.5-10.5 fL Immature Granulocyte % (Auto) 0.9 0-1 % Neutrophils (%) (Auto) 84.1 H 40.0-77.0 % Lymphocytes (%) (Auto) 5.4 L 21.0-51.0 % Monocytes (%) (Auto) 9.6 3.0-13.0 % Eosinophils (%) (Auto) 0.0 0.0-8.0 % Basophils (%) (Auto) 0.0 0.0-5.0 % Neutrophils # (Auto) 7.8 H 1.8-7.7 K/uL Lymphocytes # (Auto) 0.5 L 1.0-4.8 K/uL Monocytes # (Auto) 0.9 0.1-1.0 K/uL Eosinophils # (Auto) 0.00 0.00-0.70 K/uL Basophils # (Auto) 0.00 0.00-0.20 K/uL Absolute Immature Granulocyte (auto 0.08 0-1 K/uL Nucleated Red Blood Cells 0.0 0.0-0.19 % Sodium Level 141 136-145 mmol/L Potassium Level 3.9 3.5-5.1 mmol/L Chloride Level 104 101-111 mmol/L Carbon Dioxide Level 22 21-32 mmol/L Blood Urea Nitrogen 123 *H 7-18 mg/dL Creatinine 5.9 H 0.5-1.3 mg/dL Glomerular Filtration Rate Calc 10 >90 mL/min Random Glucose 115 H 70-105 mg/dL Total Calcium 7.4 L 8.5-10.1 mg/dL Current Medications Medications (Trade) Dose Ordered Sig/Roderick Route PRN Reason Start Time Stop Time Status Last Admin Dose Admin Albuterol Sulfate (Proventil 0.083% 2.5mg/3ml) 10 mg ONCE STAT IH 06/17/24 04:05 06/17/24 04:12 DC 06/17/24 04:31 10 MG Amiodarone HCl 360 mg/Dextrose 200 ml @ 0 mls/hr PROTOCOL IV 06/24/24 14:30 06/25/24 09:16 DC 06/24/24 15:51 33.33 MLS/HR Amiodarone HCl 540 mg/Dextrose 300 ml @ 0 mls/hr PROTOCOL IV 06/24/24 21:00 07/24/24 20:59 06/24/24 20:42 16.7 MLS/HR Amlodipine Besylate (NorvASC 5MG TAB) 5 mg BID PO 06/22/24 09:00 07/22/24 08:59 06/28/24 08:57 5 MG Apixaban (EliquIS) 5 mg BID PO 06/24/24 14:30 07/24/24 14:29 06/28/24 09:00 5 MG Calcium Carbonate (Tums 500 Mg Chew Tab) 500 tab ONCE PO 06/26/24 15:30 07/26/24 15:29 Cancel Calcium Carbonate (Tums 500 Mg Chew Tab) 500 tab Q6H6 PRN PO GI UPSET/UPSET STOMACH 06/28/24 12:00 07/28/24 11:59 06/28/24 12:13 1 TAB Calcium Gluconate (Calcium Gluc 1gm Vial) 1 gm AD STAT IV 06/17/24 04:05 06/17/24 04:12 DC 06/17/24 04:21 1 GM Cefepime HCl (MAXipime 1 GM vial) 0.25 gm Q24H IVPB 06/17/24 04:00 06/18/24 04:06 DC 06/17/24 04:58 0.25 GM Cefepime HCl (MAXipime 1 GM vial) 1 gm Q24H IVPB 06/20/24 05:00 06/22/24 16:09 DC 06/22/24 03:12 1 GM Cefepime HCl 0.25 gm/Sodium Chloride 50 ml @ 100 mls/hr Q24H IVPB 06/18/24 04:30 06/19/24 10:58 DC 06/19/24 05:26 100 MLS/HR Dextrose (D50w) 50 ml AD PRN IV HYPOGLYCEMIA PROTOCOL 06/17/24 01:00 06/17/24 01:01 DC Dextrose (D50w) 50 ml AD PRN IV HYPOGLYCEMIA PROTOCOL 06/17/24 01:00 07/17/24 00:59 Dextrose (D50w) 50 ml ONCE STAT IV 06/17/24 04:05 06/17/24 04:12 DC 06/17/24 04:21 50 ML Epoetin Rylan-epbx (Retacrit) 10,000 unit [id number] SQ 06/24/24 14:00 06/24/24 13:53 DC Epoetin Rylan-epbx (Retacrit) 10,000 unit QWEEK SQ 06/24/24 14:00 07/24/24 13:59 06/24/24 14:37 10,000 UNIT Famotidine (Pepcid 20mg Vial) 20 mg Q48H IV 06/17/24 01:00 07/17/24 00:59 06/27/24 00:54 20 MG Folic Acid (FOLic ACID 1 MG TABLET) 1 mg DAILY PO 06/25/24 09:00 07/25/24 08:59 06/28/24 08:57 1 MG Furosemide (LASix 40MG VIAL) 40 mg Q12H IV 06/28/24 21:00 07/28/24 20:59 Furosemide (LASix 40MG VIAL) 40 mg Q8H IV 06/19/24 18:30 06/20/24 18:31 DC 06/20/24 18:54 40 MG Glucagon (Glucagon 1mg Kit) 1 mg AD PRN IM HYPOGLYCEMIA PROTOCOL 06/17/24 01:00 06/17/24 01:01 DC Glucagon (Glucagon 1mg Kit) 1 mg AD PRN IM HYPOGLYCEMIA PROTOCOL 06/17/24 01:00 07/17/24 00:59 Hydralazine HCl ([id number] TAB) 25 mg TID PO 06/22/24 09:00 07/22/24 08:59 06/28/24 09:00 25 MG Hydrocortisone Sodium Succinate (Solu-corTEF 100MG) 50 mg ONCE@1930 IV 06/22/24 19:30 06/22/24 22:30 DC 06/22/24 19:59 50 MG Hydrocortisone Sodium Succinate (Solu-corTEF 100MG) 50 mg Q8H IV 06/18/24 11:30 06/22/24 15:46 DC 06/22/24 03:12 50 MG Hydrocortisone Sodium Succinate (Solu-corTEF 100MG) 50 mg Q8H6 IV 06/23/24 06:00 07/23/24 05:59 06/28/24 05:33 50 MG Hydromorphone HCl (DiLAUDid 0.5MG INJ) 0.5 mg Q4H PRN IVP SEVERE PAIN (7-10) 06/20/24 13:00 06/25/24 12:59 DC 06/21/24 23:50 0.5 MG Insulin Human Regular (humuLIN R 100 UNIT/ML 3ML) 10 unit ONCE STAT IV 06/17/24 04:05 06/17/24 04:12 DC 06/17/24 04:28 10 UNIT Insulin Human Regular (humuLIN R 100 UNIT/ML 3ML) INSULIN SLIDING SCAL... ACHS SQ 06/17/24 07:30 07/17/24 07:29 06/27/24 21:00 2 UNIT Lactated Ringer's 1,000 ml @ 130 mls/hr Q7H42M IV 06/21/24 09:30 06/28/24 09:51 DC 06/28/24 09:03 130 MLS/HR Lactobacillus Rhamnosus ([facility] [employer] [facility]) 1 each BID PO 06/28/24 10:00 07/28/24 09:59 06/28/24 10:20 1 EACH Leptospermum Honey ([facility]) 1 appl DAILY TP 06/19/24 09:00 07/19/24 08:59 06/28/24 09:01 1 APPL Magnesium Sulfate 50 ml @ 0 mls/hr PROTOCOL PRN IV MAGNESIUM PROTOCOL 06/23/24 11:30 07/23/24 11:29 06/24/24 05:57 25 MLS/HR Metoprolol Tartrate (loprESSOR) 25 mg BID PO 06/24/24 14:30 07/24/24 14:29 06/28/24 08:57 25 MG Metronidazole/ Sodium Chloride (flaGYL) 500 mg Q8H IV 06/17/24 05:00 06/27/24 04:59 DC 06/26/24 21:48 500 MG Micafungin Sodium 100 ml @ 100 mls/hr Q24H IV 06/18/24 00:00 07/18/24 00:00 06/27/24 23:16 100 MLS/HR Norepinephrine 250 ml @ 0 mls/hr PROTOCOL IV 06/16/24 22:00 06/22/24 07:20 DC 06/17/24 05:33 24.5 MLS/HR Ondansetron HCl (zoFRAN 4MG INJ) 4 mg Q6H PRN IVP NAUSEA/VOMITING 06/23/24 20:30 07/23/24 20:29 06/28/24 12:13 4 MG Pharmacy Profile Note (Lace Assessment) 1 each AD MISC 06/19/24 15:30 06/20/24 12:49 DC Pharmacy Profile Note (Pharmacy Communication) 1 each ONCE MISC 06/17/24 23:00 06/19/24 07:13 DC 06/17/24 23:31 1 EACH Pharmacy Profile Note (Pharmacy Communication) 1 each ONCE MISC 06/22/24 16:30 06/23/24 07:22 DC Phenylephrine HCl 100 mg/Sodium Chloride 250 ml @ 0 mls/hr AD PRN IV TITRATE 06/17/24 10:30 06/22/24 07:20 DC 06/18/24 05:48 27 MLS/HR Piperacillin Sod/ Tazobactam Sod (Zosyn 3.375gm+NS 50ml) 3.375 gm Q12H IV 06/16/24 21:30 06/17/24 01:03 DC 06/16/24 21:42 3.375 GM Piperacillin Sod/ Tazobactam Sod (Zosyn 3.375gm+NS 50ml) 3.375 gm Q12H IVPB 06/17/24 01:00 06/17/24 04:00 DC 06/17/24 02:54 3.375 GM Potassium Chloride 100 ml @ 100 mls/hr AD PRN IV POTASSIUM PROTOCOL 06/21/24 08:00 07/21/24 07:59 06/24/24 05:57 100 MLS/HR Potassium Chloride 100 ml @ 100 mls/hr AD PRN IV POTASSIUM PROTOCOL 06/23/24 11:30 07/23/24 11:29 Potassium Chloride (K-Dur/Klor-Con 20meq) 20 meq AD PRN PO POTASSIUM PROTOCOL 06/23/24 11:30 07/23/24 11:29 Potassium Chloride (K-Dur/Klor-Con 20meq) 40 meq BID PO 06/22/24 09:00 06/22/24 21:01 DC 06/22/24 19:54 40 MEQ Potassium Chloride (K-Dur/Klor-Con 20meq) 40 meq BID PO 06/25/24 09:00 06/28/24 09:51 DC 06/27/24 09:23 40 MEQ Potassium Chloride (KCl 10% Elixir 20meq/15ml) 20 meq AD PRN PO POTASSIUM PROTOCOL 06/23/24 11:30 07/23/24 11:29 Sodium Bicarbonate / Dextrose 1,000 ml @ 0 mls/hr Q0M IVP 06/17/24 05:00 06/17/24 04:58 DC Sodium Bicarbonate 150 meq/Dextrose 1,150 ml @ 50 mls/hr Q23H IVP 06/18/24 08:00 06/19/24 12:24 DC 06/18/24 20:23 100 MLS/HR Sodium Bicarbonate 150 meq/Dextrose 1,150 ml @ 100 mls/hr [id number] IVP 06/17/24 05:00 06/18/24 04:44 DC 06/17/24 21:00 100 MLS/HR Sodium Polystyrene Sulfonate (kayEXALate 15 GM/60 ML) 15 gm Q2H PO 06/16/24 21:30 06/16/24 23:31 DC 06/16/24 22:21 15 GM Sodium Chloride 1,000 ml @ 150 mls/hr Q6H40M IV 06/16/24 23:00 06/17/24 09:10 DC 06/17/24 05:15 150 MLS/HR Sodium Chloride (NS 50ml) 50 ml AD IV 06/17/24 01:00 06/17/24 01:05 DC Sucralfate (Carafate) 1 gm BID PO 06/28/24 12:30 07/28/24 12:29 06/28/24 12:44 1 GM Thiamine HCl (Vitamin B-1) 100 mg DAILY IVP 06/17/24 09:00 07/17/24 08:59 06/28/24 08:57 100 MG Tigecycline 100 mg/Sodium Chloride 100 ml @ 200 mls/hr ONCE IV 06/22/24 16:30 06/23/24 07:21 DC 06/22/24 18:51 200 MLS/HR Tigecycline 50 mg/ Sodium Chloride 100 ml @ 200 mls/hr BID@0600,1800 IV 06/23/24 06:00 06/30/24 05:59 06/28/24 05:34 200 MLS/HR Vancomycin HCl (Vancomycin 750mg) 750 mg Q96H IVPB 06/20/24 22:00 06/17/24 14:00 DC Vancomycin HCl (Vancomycin Protocol) 1 each AD IV 06/17/24 01:30 06/17/24 14:01 DC Vitamin B Complex/ Vit C/Folic Acid (Nephrovite Tablet) 1 cap DAILY PO 06/24/24 09:00 07/24/24 08:59 06/28/24 08:57 1 CAP Wound Care/ Dressing Products (Venelex Ointment) 1 APPL BID TP 06/28/24 21:00 07/28/24 20:59 DIAGNOSTICS / RADIOLOGY: [ ] ASSESSMENT: Severe metabolic acidosis, resolved POA Septic shock requiring vasopressor, resolved POA Paroxysmal afib with RVR Fungemia 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 Nephrology consulted, appreciate recommendations Stop LR @ 130 cc/hr Start furosemide 40mg IV BID Continue clear liquid diet, will advance tomorrow GI consulted, appreciate recommendations Hematology consulted, appreciate recommendations Anemia workup. Transfuse as needed. Hematology consultation requested per Follow critical care input and recommendation Disposition: Pending placement, improvement in renal function, nephrology recommendations AL CARDONA MD Jun 28, 2024 12:56
--- NOTE | 2024-06-28 13:16 | PN ---
FOLLOWUP PROGRESS NOTE SUBJECTIVE: A 69-year-old male has had a prolonged hospital course. He has had acute on chronic renal failure in the hospital. The patient with osteomyelitis of the foot and he remains on the antibiotics. The patient has had persistently elevated BUN and creatinine. Urine output has declined overnight. I did discuss the case in detail with the primary team and the patient is being seen as a followup visit for all of the above. REVIEW OF SYSTEMS: GENERAL: He is feeling weak and tired. HEENT: No change in vision. No change in hearing. CARDIOVASCULAR: No current chest pain or palpitations. PULMONARY: Complains of a shortness of breath. GASTROINTESTINAL: The patient is tolerating a diet. MUSCULOSKELETAL: Complains of weakness. PHYSICAL EXAMINATION: VITAL SIGNS: Blood pressure is 123/76, pulse in the 70. He is afebrile. GENERAL: He is a chronically ill male, elderly, lying in bed on the medical floor. HEENT: Head is atraumatic. Pupils are equal, roving to light. Oropharynx is without exudate. Nares clear. NECK: There is no JVP. There is no thyromegaly. No masses. CARDIOVASCULAR: Regular. There is no S3 or S4 gallop. LUNGS: Coarse with equal thoracic movement. ABDOMEN: Soft, nondistended, nontender. EXTREMITIES: He does have edema. NEUROLOGICAL: He is awake. He is alert. He is oriented. SKIN: Reveals no rashes or nodules. LABORATORY DATA: Hemoglobin 9.3, hematocrit 26, white blood cell count is 9000. Sodium 141, potassium 3.9, BUN 23, creatinine 5.9, glucose is 160. IMPRESSION: * Acute on chronic renal dysfunction. * Vascular disease. * Osteomyelitis. PLAN: The patient continues with significant renal dysfunction. The patient's urine output has been marginal overnight. The patient will be started on Lasix 40 mg IV b.i.d. and we will follow the patient closely. I did discuss with the patient if his renal function does not improve, he may ultimately require renal replacement therapy. All labs can be repeated in the morning. TID: [id number] RECEIPT: [id number]
[2024-06-28] MEDS: furoSEMIDE 40MG VIAL IV SCH (20:53)
[2024-06-28] MEDS: BALSAM PERU/CASTOR OIL 60 GM TUBE TP SCH (20:55)
--- NOTE | 2024-06-28 20:57 | PN ---
INFECTIOUS DISEASE FOLLOWUP NOTE DATE OF SERVICE: 06/28/2024. SUBJECTIVE: The patient is seen and examined at bedside today. No fever. No chills. No nausea or vomiting. No abdominal pain. Tolerating antibiotic and antifungal agent. No dysuria or hematuria. No slurred speech or limb weakness. PHYSICAL EXAMINATION: VITAL SIGNS: Temperature 98.6. EYES: No icterus. Pupils equal and reactive. HENT: No oral thrush seen. Moist oral mucosa. NECK: Supple. No JVD or thyromegaly. LUNGS: Good air entry. No rales. No rhonchi. CARDIOVASCULAR: S1, S2, regular. No murmur heard. ABDOMEN: Obese, soft, nontender. Bowel sound is present. CENTRAL NERVOUS SYSTEM: Awake, alert, and oriented x 3. No focal deficits. SKIN: No rashes. No itchiness. LYMPHATIC: No peripheral lymphadenopathy. BACK: No deformity. No pressure ulcer. ASSESSMENT: A 69-year-old male with multiple problems including: * Septic shock. * Fungemia. * Renal failure. * Anemia. * UTI. * Atrial fibrillation. * Respiratory failure. * GI bleed. * Obesity. PLAN: * Continue tigecycline. * Continue micafungin. * Continue pain management. * Continue nutritional support. * Continue antiarrhythmic agent. * Continue DVT prophylaxis. TID: [id number] RECEIPT: [id number]
[2024-06-29] VITALS (8 sets, daily range): BP systolic 106–134; BP diastolic 55–74; PULSE 67–84; RESP 16–22; TEMP 97.3–98.1; O2SAT 96
[2024-06-29 04:24] LABS: EOSINOPHILS # (AUTO) 0.01 K/uL (0.00-0.70); EOSINOPHILS % (AUTO) 0.1 % (0.0-8.0); HEMATOCRIT 27.2 % (42-54); IMMATURE GRANULOCYTE ABSOLUTE 0.05 K/uL (0-1); LYMPHOCYTES # (AUTO) 0.3 K/uL (1.0-4.8); LYMPHOCYTES % (AUTO) 3.1 % (21.0-51.0); MEAN CORPUSCULAR HGB CONC 34.9 g/dL (32.0-36.0); MEAN CORPUSCULAR VOLUME 85.8 fL (79-99); MONOCYTES # (AUTO) 0.7 K/uL (0.1-1.0); MONOCYTES % (AUTO) 7.4 % (3.0-13.0); NEUTROPHILS # (AUTO) 8.9 K/uL (1.8-7.7); NEUTROPHILS % (AUTO) 88.9 % (40.0-77.0); PLATELET COUNT (AUTO) 343 K/uL (130-400); RED BLOOD CELL COUNT(AUTO) 3.17 MIL/uL (4.50-6.20); RED CELL DISTRIBUTION WIDTH 15.8 % (11.0-15.5)
[2024-06-29 04:53] LABS: ALBUMIN 2.3 g/dL (3.5-5.0); BILIRUBIN,TOTAL 0.7 mg/dL (0.2-1.0); MAGNESIUM 1.7 mg/dL (1.80-2.40); PHOSPHORUS 8.3 mg/dL (2.5-4.9); POTASSIUM 3.6 mmol/L (3.5-5.1); TOTAL PROTEIN, SERUM 5.8 g/dL (6.0-8.3)
--- NOTE | 2024-06-29 09:41 | PN ---
GASTROENTEROLOGY PROGRESS NOTE Date of Visit: Jun 29, 2024 Time of Visit: 09:40 Events / Notes: No acute events overnight. Patient had EGD revealing mucosal changes suspicious for gastritis. Denies fever, chills, abdominal pain, N/V, hematemesis, bloating, constipation, diarrhea, melena or hematochezia. Review of Systems: CONSTITUTIONAL: No malaise or change in sensation of wellbeing. ENMT: No rhinorrhea, otorrhea, sinus pain, ear ache. CARDIOVASCULAR: No angina, palpitations, orthopnea or paroxysmal dyspnea. RESPIRATORY: No SOB. GASTROINTESTINAL: No abdominal pain, nausea, vomiting, diarrhea, hematemesis, melena or change in the patient's habitual bowel movements consistency/number. GENITOURINARY: No dysuria, hematuria or change in bladder continence. MUSCULOSKELETAL: No new muscle pain or decrease in muscular strength. No new joint swelling, redness or tenderness. SKIN: No new rash. Physical Exam: GEN: Awake, alert, oriented in person, time and place, and in no acute distress. HEENT: No sinus tenderness. Tympanic membranes were not examined. No rhinorrhea. Oral pharyngeal mucosa is pink, moist and within normal limits. Neck is supple with no cervical lymphadenopathy, thyromegaly or JVD. CHEST: Inspection, palpation and percussion of the chest were unremarkable. Lung auscultation revealed normal breath sounds bilaterally. CARDIAC: PMI is within normal limits. Heart sounds are regular. Normal S1, S2. No gallop or murmur. ABD: Soft, non-tender and not distended. No peritoneal signs on palpation. No organomegaly. Normal bowel sounds. EXT: No cyanosis or clubbing. No edema. SKIN: Intact. No rashes. JOINTS: No evidence of synovitis or acute arthritis. NEURO: Alert and oriented to name, place and person. Cranial nerve examination is unremarkable. No focal motor deficits. Normal speech. Gait is normal. Strength is normal. Vital Signs (last 8hr) Date Time Temp Pulse Resp B/P (MAP) Pulse Ox O2 Delivery O2 Flow Rate FiO2 06/29/24 07:49 97.3 74 18 106/55 94 Nasal Cannula 2.0 06/29/24 04:00 97.7 67 22 124/74 95 Nasal Cannula 2.0 Laboratory: [ ] Laboratory: Test 06/29/24 05:20 06/29/24 04:04 Range/Units Whole Blood Glucose 186 H 70-110 MG/DL White Blood Count 10.0 4.8-10.8 K/uL Red Blood Count 3.17 L 4.50-6.20 MIL/uL Hemoglobin 9.5 L 14.0-18.0 g/dL Hematocrit 27.2 L 42-54 % Mean Corpuscular Volume 85.8 79-99 fL Mean Corpuscular Hemoglobin 30.0 27.0-33.0 pg Mean Corpuscular Hemoglobin Concent 34.9 32.0-36.0 g/dL Red Cell Distribution Width 15.8 H 11.0-15.5 % Platelet Count 343 # 130-400 K/uL Mean Platelet Volume 11.4 H 7.5-10.5 fL Immature Granulocyte % (Auto) 0.5 0-1 % Neutrophils (%) (Auto) 88.9 H 40.0-77.0 % Lymphocytes (%) (Auto) 3.1 L 21.0-51.0 % Monocytes (%) (Auto) 7.4 3.0-13.0 % Eosinophils (%) (Auto) 0.1 0.0-8.0 % Basophils (%) (Auto) 0.0 0.0-5.0 % Neutrophils # (Auto) 8.9 H 1.8-7.7 K/uL Lymphocytes # (Auto) 0.3 L 1.0-4.8 K/uL Monocytes # (Auto) 0.7 0.1-1.0 K/uL Eosinophils # (Auto) 0.01 0.00-0.70 K/uL Basophils # (Auto) 0.00 0.00-0.20 K/uL Absolute Immature Granulocyte (auto 0.05 0-1 K/uL Nucleated Red Blood Cells 0.0 0.0-0.19 % Sodium Level 138 136-145 mmol/L Potassium Level 3.6 3.5-5.1 mmol/L Chloride Level 98 L 101-111 mmol/L Carbon Dioxide Level 21 21-32 mmol/L Blood Urea Nitrogen 131 *H 7-18 mg/dL Creatinine 6.0 H 0.5-1.3 mg/dL Glomerular Filtration Rate Calc 9 >90 mL/min Random Glucose 197 #H 70-105 mg/dL Lactic Acid Level 1.6 0.8-2.5 mmol/L Total Calcium 7.5 L 8.5-10.1 mg/dL Phosphorus Level 8.3 H 2.5-4.9 mg/dL Magnesium Level 1.70 L 1.80-2.40 mg/dL Total Bilirubin 0.7 0.2-1.0 mg/dL Aspartate Amino Transf (AST/SGOT) 22 10-37 U/L Alanine Aminotransferase (ALT/SGPT) 15 12-78 U/L Alkaline Phosphatase 139 H 50-136 U/L B-Type Natriuretic Peptide 3180 H 0-100 pg/mL Total Protein 5.8 L 6.0-8.3 g/dL Albumin 2.3 L 3.5-5.0 g/dL Procalcitonin 0.36 0.05-0.5 ng/mL Current Medications Medications (Trade) Dose Ordered Sig/Roderick Route PRN Reason Start Time Stop Time Status Last Admin Dose Admin Albuterol Sulfate (Proventil 0.083% 2.5mg/3ml) 10 mg ONCE STAT IH 06/17/24 04:05 06/17/24 04:12 DC 06/17/24 04:31 10 MG Amiodarone HCl 360 mg/Dextrose 200 ml @ 0 mls/hr PROTOCOL IV 06/24/24 14:30 06/25/24 09:16 DC 06/24/24 15:51 33.33 MLS/HR Amiodarone HCl 540 mg/Dextrose 300 ml @ 0 mls/hr PROTOCOL IV 06/24/24 21:00 07/24/24 20:59 06/24/24 20:42 16.7 MLS/HR Amlodipine Besylate (NorvASC 5MG TAB) 5 mg BID PO 06/22/24 09:00 07/22/24 08:59 06/28/24 20:55 5 MG Apixaban (EliquIS) 5 mg BID PO 06/24/24 14:30 07/24/24 14:29 06/28/24 20:57 5 MG Calcium Carbonate (Tums 500 Mg Chew Tab) 500 tab ONCE PO 06/26/24 15:30 07/26/24 15:29 Cancel Calcium Carbonate (Tums 500 Mg Chew Tab) 500 tab Q6H6 PRN PO GI UPSET/UPSET STOMACH 06/28/24 12:00 07/28/24 11:59 06/28/24 21:10 1 TAB Calcium Gluconate (Calcium Gluc 1gm Vial) 1 gm AD STAT IV 06/17/24 04:05 06/17/24 04:12 DC 06/17/24 04:21 1 GM Cefepime HCl (MAXipime 1 GM vial) 0.25 gm Q24H IVPB 06/17/24 04:00 06/18/24 04:06 DC 06/17/24 04:58 0.25 GM Cefepime HCl (MAXipime 1 GM vial) 1 gm Q24H IVPB 06/20/24 05:00 06/22/24 16:09 DC 06/22/24 03:12 1 GM Cefepime HCl 0.25 gm/Sodium Chloride 50 ml @ 100 mls/hr Q24H IVPB 06/18/24 04:30 06/19/24 10:58 DC 06/19/24 05:26 100 MLS/HR Dextrose (D50w) 50 ml AD PRN IV HYPOGLYCEMIA PROTOCOL 06/17/24 01:00 06/17/24 01:01 DC Dextrose (D50w) 50 ml AD PRN IV HYPOGLYCEMIA PROTOCOL 06/17/24 01:00 07/17/24 00:59 Dextrose (D50w) 50 ml ONCE STAT IV 06/17/24 04:05 06/17/24 04:12 DC 06/17/24 04:21 50 ML Epoetin Rylan-epbx (Retacrit) 10,000 unit [id number] SQ 06/24/24 14:00 06/24/24 13:53 DC Epoetin Rylan-epbx (Retacrit) 10,000 unit QWEEK SQ 06/24/24 14:00 07/24/24 13:59 06/24/24 14:37 10,000 UNIT Famotidine (Pepcid 20mg Vial) 20 mg Q48H IV 06/17/24 01:00 07/17/24 00:59 06/29/24 00:57 20 MG Folic Acid (FOLic ACID 1 MG TABLET) 1 mg DAILY PO 06/25/24 09:00 07/25/24 08:59 06/28/24 08:57 1 MG Furosemide (LASix 40MG VIAL) 40 mg Q12H IV 06/28/24 21:00 07/28/24 20:59 06/28/24 20:53 40 MG Furosemide (LASix 40MG VIAL) 40 mg Q8H IV 06/19/24 18:30 06/20/24 18:31 DC 06/20/24 18:54 40 MG Glucagon (Glucagon 1mg Kit) 1 mg AD PRN IM HYPOGLYCEMIA PROTOCOL 06/17/24 01:00 06/17/24 01:01 DC Glucagon (Glucagon 1mg Kit) 1 mg AD PRN IM HYPOGLYCEMIA PROTOCOL 06/17/24 01:00 07/17/24 00:59 Hydralazine HCl ([id number] TAB) 25 mg TID PO 06/22/24 09:00 07/22/24 08:59 06/28/24 20:56 25 MG Hydrocortisone Sodium Succinate (Solu-corTEF 100MG) 50 mg ONCE@1930 IV 06/22/24 19:30 06/22/24 22:30 DC 06/22/24 19:59 50 MG Hydrocortisone Sodium Succinate (Solu-corTEF 100MG) 50 mg Q8H IV 06/18/24 11:30 06/22/24 15:46 DC 06/22/24 03:12 50 MG Hydrocortisone Sodium Succinate (Solu-corTEF 100MG) 50 mg Q8H6 IV 06/23/24 06:00 07/23/24 05:59 06/29/24 05:52 50 MG Hydromorphone HCl (DiLAUDid 0.5MG INJ) 0.5 mg Q4H PRN IVP SEVERE PAIN (7-10) 06/20/24 13:00 06/25/24 12:59 DC 06/21/24 23:50 0.5 MG Insulin Human Regular (humuLIN R 100 UNIT/ML 3ML) 10 unit ONCE STAT IV 06/17/24 04:05 06/17/24 04:12 DC 06/17/24 04:28 10 UNIT Insulin Human Regular (humuLIN R 100 UNIT/ML 3ML) INSULIN SLIDING SCAL... ACHS SQ 06/17/24 07:30 07/17/24 07:29 06/29/24 05:51 2 UNIT Lactated Ringer's 1,000 ml @ 130 mls/hr Q7H42M IV 06/21/24 09:30 06/28/24 09:51 DC 06/28/24 09:03 130 MLS/HR Lactobacillus Rhamnosus ([facility] enGene & MedCenterDisplay) 1 each BID PO 06/28/24 10:00 07/28/24 09:59 06/28/24 20:55 1 EACH Leptospermum Honey (Medihoney) 1 appl DAILY TP 06/19/24 09:00 07/19/24 08:59 06/28/24 09:01 1 APPL Magnesium Sulfate 50 ml @ 0 mls/hr PROTOCOL PRN IV MAGNESIUM PROTOCOL 06/23/24 11:30 07/23/24 11:29 06/24/24 05:57 25 MLS/HR Metoprolol Tartrate (loprESSOR) 25 mg BID PO 06/24/24 14:30 07/24/24 14:29 06/28/24 20:57 25 MG Metronidazole/ Sodium Chloride (flaGYL) 500 mg Q8H IV 06/17/24 05:00 06/27/24 04:59 DC 06/26/24 21:48 500 MG Micafungin Sodium 100 ml @ 100 mls/hr Q24H IV 06/18/24 00:00 07/18/24 00:00 06/28/24 23:30 100 MLS/HR Morphine Sulfate (morPHINE 2MG SYG) 2 mg Q4H PRN IVP SEVERE PAIN (7-10) 06/29/24 00:30 07/06/24 00:29 Norepinephrine 250 ml @ 0 mls/hr PROTOCOL IV 06/16/24 22:00 06/22/24 07:20 DC 06/17/24 05:33 24.5 MLS/HR Ondansetron HCl (zoFRAN 4MG INJ) 4 mg Q6H PRN IVP NAUSEA/VOMITING 06/23/24 20:30 07/23/24 20:29 06/28/24 12:13 4 MG Pharmacy Profile Note (Lace Assessment) 1 each AD MISC 06/19/24 15:30 06/20/24 12:49 DC Pharmacy Profile Note (Pharmacy Communication) 1 each ONCE MISC 06/17/24 23:00 06/19/24 07:13 DC 06/17/24 23:31 1 EACH Pharmacy Profile Note (Pharmacy Communication) 1 each ONCE MISC 06/22/24 16:30 06/23/24 07:22 DC Phenylephrine HCl 100 mg/Sodium Chloride 250 ml @ 0 mls/hr AD PRN IV TITRATE 06/17/24 10:30 06/22/24 07:20 DC 06/18/24 05:48 27 MLS/HR Piperacillin Sod/ Tazobactam Sod (Zosyn 3.375gm+NS 50ml) 3.375 gm Q12H IV 06/16/24 21:30 06/17/24 01:03 DC 06/16/24 21:42 3.375 GM Piperacillin Sod/ Tazobactam Sod (Zosyn 3.375gm+NS 50ml) 3.375 gm Q12H IVPB 06/17/24 01:00 06/17/24 04:00 DC 06/17/24 02:54 3.375 GM Potassium Chloride 100 ml @ 100 mls/hr AD PRN IV POTASSIUM PROTOCOL 06/21/24 08:00 07/21/24 07:59 06/24/24 05:57 100 MLS/HR Potassium Chloride 100 ml @ 100 mls/hr AD PRN IV POTASSIUM PROTOCOL 06/23/24 11:30 07/23/24 11:29 Potassium Chloride (K-Dur/Klor-Con 20meq) 20 meq AD PRN PO POTASSIUM PROTOCOL 06/23/24 11:30 07/23/24 11:29 Potassium Chloride (K-Dur/Klor-Con 20meq) 40 meq BID PO 06/22/24 09:00 06/22/24 21:01 DC 06/22/24 19:54 40 MEQ Potassium Chloride (K-Dur/Klor-Con 20meq) 40 meq BID PO 06/25/24 09:00 06/28/24 09:51 DC 06/27/24 09:23 40 MEQ Potassium Chloride (KCl 10% Elixir 20meq/15ml) 20 meq AD PRN PO POTASSIUM PROTOCOL 06/23/24 11:30 07/23/24 11:29 Sodium Bicarbonate / Dextrose 1,000 ml @ 0 mls/hr Q0M IVP 06/17/24 05:00 06/17/24 04:58 DC Sodium Bicarbonate 150 meq/Dextrose 1,150 ml @ 50 mls/hr Q23H IVP 06/18/24 08:00 06/19/24 12:24 DC 06/18/24 20:23 100 MLS/HR Sodium Bicarbonate 150 meq/Dextrose 1,150 ml @ 100 mls/hr [id number] IVP 06/17/24 05:00 06/18/24 04:44 DC 06/17/24 21:00 100 MLS/HR Sodium Polystyrene Sulfonate (kayEXALate 15 GM/60 ML) 15 gm Q2H PO 06/16/24 21:30 06/16/24 23:31 DC 06/16/24 22:21 15 GM Sodium Chloride 1,000 ml @ 150 mls/hr Q6H40M IV 06/16/24 23:00 06/17/24 09:10 DC 06/17/24 05:15 150 MLS/HR Sodium Chloride (NS 50ml) 50 ml AD IV 06/17/24 01:00 06/17/24 01:05 DC Sucralfate (Carafate) 1 gm BID PO 06/28/24 12:30 06/28/24 22:30 DC 06/28/24 20:56 1 GM Thiamine HCl (Vitamin B-1) 100 mg DAILY IVP 06/17/24 09:00 07/17/24 08:59 06/28/24 08:57 100 MG Tigecycline 100 mg/Sodium Chloride 100 ml @ 200 mls/hr ONCE IV 06/22/24 16:30 06/23/24 07:21 DC 06/22/24 18:51 200 MLS/HR Tigecycline 50 mg/ Sodium Chloride 100 ml @ 200 mls/hr BID@0600,1800 IV 06/23/24 06:00 06/30/24 05:59 06/29/24 05:54 200 MLS/HR Vancomycin HCl (Vancomycin 750mg) 750 mg Q96H IVPB 06/20/24 22:00 06/17/24 14:00 DC Vancomycin HCl (Vancomycin Protocol) 1 each AD IV 06/17/24 01:30 06/17/24 14:01 DC Vitamin B Complex/ Vit C/Folic Acid (Nephrovite Tablet) 1 cap DAILY PO 06/24/24 09:00 07/24/24 08:59 06/28/24 08:57 1 CAP Wound Care/ Dressing Products (Venelex Ointment) 1 APPL BID TP 06/28/24 21:00 07/28/24 20:59 06/28/24 20:55 1 GM Diagnostics / Radiology: [COPY/PASTE HERE IF NO REPORTS PLEASE DELETE SECTION] Assessment: Gastritis Acute blood loss anemia HTN DM Plan: Patient defers Colonoscopy Continue GI prophylaxis Advance diet as tolerated Avoid NSAIDs Antireflux measures Monitor H&H and transfuse as needed Call with questions, concerns or change in clinical status Patient to follow-up at clinic post discharge Thank you for this consult ANGEL [facility] SPEC Jun 29, 2024 09:41
[2024-06-29] MEDS: PoTASSium chloRIDE 20MEQ ER 20 MEQ ERTAB PO PRN (09:47)
--- NOTE | 2024-06-29 11:37 | PN ---
[facility] PROGRESS NOTE Date Patient Seen: Jun 29, 2024 Time of Visit: 11:37 Supervising Physician: Evan Patel MD Supervising Physician: Dr. Evan Patel Primary Care Physician: [None-recently relocated from [place]] Outpatient Specialists: [ ] Inpatient Consults: BIS team, nephro: Dr. Dowd, cardio: Dr. Bae] PROBLEM LIST: NETO on CKD POA resolving Uremia-POA Enterocolitis POA Cholelithiasis Mild Distal colonic Diverticulosis POA Severe hyperkalemia-POA Resolved Thrombocytopenia-POA. resolved Severe lactic acidosis-POA, resolved NSTEM Type II from septic shock on arrival INTERVAL HISTORY: No major over night events. Pt is awake alert and oriented x 3 . no further episodes of nausea or vomiting, BNP 3180, He contiues on lasix 40mg IV q 12hrs per nephrology recs. Urine output 1.4 L. Ches XR with bilateral pulmonary vascular congestion. He is pending SNF per case management. currently on 2L. REVIEW OF SYSTEMS: Unable to perform 12 point ROS due to patient's encephalopathy. PHYSICAL EXAM: GENERAL: Awake, Alert. Generally weak HEENT: Normocephalic, atraumatic, dry mucosa NECK: Supple, no JVD, trachea midline LUNGS: Clear breath sounds bilaterally. No wheezes HEART: Regular rate and rhythm. Normal S1 and S2, positive murmurs , tachycardic ABD: Abdomen soft, nontender. Bowel sounds present EXT: No clubbing, cyanosis, or edema, bilateral feet wound with toe amputations with dressing CDI NEURO: Awake alert and oriented x 3 Vital Signs (last 8hr) Date Time Temp Pulse Resp B/P (MAP) Pulse Ox O2 Delivery O2 Flow Rate FiO2 06/29/24 09:46 84 113/61 06/29/24 07:49 97.3 74 18 106/55 94 Nasal Cannula 2.0 06/29/24 04:00 97.7 67 22 124/74 95 Nasal Cannula 2.0 LABS: Hematology Labs: Test 06/29/24 04:04 Range/Units White Blood Count 10.0 4.8-10.8 K/uL Red Blood Count 3.17 L 4.50-6.20 MIL/uL Hemoglobin 9.5 L 14.0-18.0 g/dL Hematocrit 27.2 L 42-54 % Mean Corpuscular Volume 85.8 79-99 fL Mean Corpuscular Hemoglobin 30.0 27.0-33.0 pg Mean Corpuscular Hemoglobin Concent 34.9 32.0-36.0 g/dL Red Cell Distribution Width 15.8 H 11.0-15.5 % Platelet Count 343 # 130-400 K/uL Mean Platelet Volume 11.4 H 7.5-10.5 fL Immature Granulocyte % (Auto) 0.5 0-1 % Neutrophils (%) (Auto) 88.9 H 40.0-77.0 % Lymphocytes (%) (Auto) 3.1 L 21.0-51.0 % Monocytes (%) (Auto) 7.4 3.0-13.0 % Eosinophils (%) (Auto) 0.1 0.0-8.0 % Basophils (%) (Auto) 0.0 0.0-5.0 % Neutrophils # (Auto) 8.9 H 1.8-7.7 K/uL Lymphocytes # (Auto) 0.3 L 1.0-4.8 K/uL Monocytes # (Auto) 0.7 0.1-1.0 K/uL Eosinophils # (Auto) 0.01 0.00-0.70 K/uL Basophils # (Auto) 0.00 0.00-0.20 K/uL Absolute Immature Granulocyte (auto 0.05 0-1 K/uL Nucleated Red Blood Cells 0.0 0.0-0.19 % Chemistry Labs: Test 06/29/24 11:32 06/29/24 04:04 Range/Units Whole Blood Glucose 112 H 70-110 MG/DL Sodium Level 138 136-145 mmol/L Potassium Level 3.6 3.5-5.1 mmol/L Chloride Level 98 L 101-111 mmol/L Carbon Dioxide Level 21 21-32 mmol/L Blood Urea Nitrogen 131 *H 7-18 mg/dL Creatinine 6.0 H 0.5-1.3 mg/dL Glomerular Filtration Rate Calc 9 >90 mL/min Random Glucose 197 #H 70-105 mg/dL Lactic Acid Level 1.6 0.8-2.5 mmol/L Total Calcium 7.5 L 8.5-10.1 mg/dL Phosphorus Level 8.3 H 2.5-4.9 mg/dL Magnesium Level 1.70 L 1.80-2.40 mg/dL Total Bilirubin 0.7 0.2-1.0 mg/dL Aspartate Amino Transf (AST/SGOT) 22 10-37 U/L Alanine Aminotransferase (ALT/SGPT) 15 12-78 U/L Alkaline Phosphatase 139 H 50-136 U/L B-Type Natriuretic Peptide 3180 H 0-100 pg/mL Total Protein 5.8 L 6.0-8.3 g/dL Albumin 2.3 L 3.5-5.0 g/dL Procalcitonin 0.36 0.05-0.5 ng/mL DIAGNOSTICS / RADIOLOGY RESULTS: IMAGING REPORT Signed PATIENT: SELENE HALL MR#: [id number] : 1955 SEX: M AGE: 69 LOCATION: [facility] ORDER 2300 STATUS: ADM IN REPORT#: [id number] SERVICE 0600 REASON: hypoxia resp failure ORDERING PHYSICIAN: SMITA BRICE PROCEDURE: CXR1VW - CHEST 1VW CHEST 1VW HISTORY: Hypoxia COMPARISON: 06/09/2024 FINDINGS: A frontal projection of the chest was obtained. There are bilateral pulmonary infiltrates suggestive of pulmonary vascular congestion with possible superimposed pneumonitis. The heart is borderline enlarged. Degenerative changes are seen. No evidence of aortic calcification is seen. IMPRESSION: 1. Bilateral pulmonary infiltrates are seen suggestive of pulmonary vascular congestion with possible superimposed pneumonitis. DICTATED BY: PEDRO VERDUGO MD DATE: 06/29/241244 ELECTRONICALLY SIGNED BY: PEDRO VERDUGO MD DATE: 06/29/241247 PLAN Disposition as per primary Pending SNF continue on supplemental oxygen aspiration precautions nutritional support NEURO: Minimize central acting medications as possible. Maintain fall precautions, adequate lighting during the day PULMONARY: Supplemental 02 as needed. Maintain aspiration precautions at all times CARDIOVASCULAR: Follow hemodynamics. Vital signs per facility protocol GI & NUTRITION: Continue with nutritional support. Continue stool softeners and laxatives as needed. KIDNEYS & ELECTROLYTES: Strict monitoring of intake, output and overall fluid balance. Avoid nephrotoxic medications to the extent possible. Medications to be dosed according to renal function. Monitor electrolytes and replace as needed ENDOCRINE: Maintain blood glucose between 100-180 at all times. Hypoglycemia protocol in place INFECTIOUS DISEASE: Trend temperature, WBC and procalcitonin level Follow cultures, deescalate antibiotics as soon as possible. Panculture if new onset fever ONCOLOGY/HEMATOLOGY/COAGULATION: Monitor for s/s of bleeding Monitor hemoglobin, coagulation studies as needed SKIN: Pressure ulcer prevention per facility protocol Specialty mattress ORTHO/REHAB: Continue PT/OT Prophylaxis: Continue GI and DVT prophylaxis Code Status: Full Resuscitation Disposition: as per PCP Total critical care time: 35 minutes. ATTESTATION BY PHYSICIAN I attest that I reviewed and discussed the case with the Physician Home Theater Experience Expert as well as agree with the Physician Home Theater Experience Expert's findings, plans of care, and documentation above. Evan Hsieh MD, [facility] Jun 29, 2024 11:37
--- NOTE | 2024-06-29 12:48 | HMCIMG ---
CHEST 1VW HISTORY: Hypoxia COMPARISON: 06/09/2024 FINDINGS: A frontal projection of the chest was obtained. There are bilateral pulmonary infiltrates suggestive of pulmonary vascular congestion with possible superimposed pneumonitis. The heart is borderline enlarged. Degenerative changes are seen. No evidence of aortic calcification is seen. IMPRESSION: 1. Bilateral pulmonary infiltrates are seen suggestive of pulmonary vascular congestion with possible superimposed pneumonitis.
--- NOTE | 2024-06-29 13:47 | NUR ---
Nutritional f/u Note: Chart, meds, and labs Reviewed. Diet has been advanced to GI soft diet. PO intake 0-50% of meals taken, mostly poor. Abnormal nutrition related labs: cl 98, bun 131, cre 6.0, gfr 9, mg 1.70, phos 8.3 Wt Status: current wt 96kg Recommend: -add Suplena 1 can PRN and/or if PO intake <50% -If Po intake continues poor consider appetite stimulant. -RD to provide further recommendations based on clinical progress. -Monitor feeding tolerance, %, wt, and labs -If No BM >3days consider bowel stimulant. - Please notify RD if additional nutrition concerns arise. Addendum: 06/29/24 at [address] Amended: Links added.
--- NOTE | 2024-06-29 14:19 | PN ---
[facility] PROGRESS NOTE Date of Service: Jun 29, 2024 Time of Service: 14:13 SUBJECTIVE: Patient is seen and examined at bedside, case discussed with the RN, during my visit the patient resting comfortably in bed, following simple commands, he is on blood pressure support with Levophed, getting sodium bicarbonate IV. BP 108/57, heart rate of 116, saturating 99% on 2 L nasal cannula. Hemoglobin 8.4, hematocrit 27.0, WBC 14.2, platelet count of 28. Sodium 143, potassium 5.0, bicarb of five, BUN 107, creatinine 9.7. ABG with pH of 7.8, pCO2 less than 15, bicarb of 2.3. 06/18 patient has been seen and examined at bedside, case discussed with the RN, patient remains confused, still on pressor support with Levophed and Andrew- Synephrine, patient also on sodium bicarbonate drip. No family members at bedside during my visit. Blood pressure 112/44, heart rate of 91, saturating 93%. CBC with WBC of 16.4, hemoglobin 8.2, hematocrit 23.7, platelet count of 27. Sodium 145, potassium 3.7, BUN of 102, creatinine 10.2, sodium bicarb of 12. ABG with pH of 7.33, pCO2 31, PO2 64, bicarb of 16.1. Septic workup reviewed, blood cultures no growth after 24 hours. Patient getting broad- spectrum IV antibiotics during my visit. CT of the abdomen pelvis probable mild enterocolitis with mild to moderate small and large bowel liquid content, cholelithiasis, urinary wall thickening, more than expected for empty urinary bladder. Mild distal colonic diverticulosis. 06/19 patient is seen and examined at bedside, case discussed with the RN, no acute events overnight, patient is still confused, however less compared to time of admission. Following very simple commands. He is currently off vasopressors. Replace, output since this morning 500 cc. Blood pressure 111/78, afebrile, saturating 96-98% 2 L nasal cannula. WBC trending down at 11.2, hemoglobin 7.6, hematocrit 20.9, platelet count of 14. BUN 108, creatini ne 10.2. ABG shows a pH 7.41, pCO2 37, PO2 81.5, bicarb 23.1. Blood culture showing Alicia tropicalis. Patient has been started on micafungin. Continue antibiotics. Continue critical care input and recommendation, continue Nephrology input and recommendation in terms of renal replacement therapy, continue daily weight, monitor intake and output. Follow anemia workup, stool o ccult blood, serial CBC transfuse 1 unit of PRBC hemoglobin less than seven, we will request Hematology consultation as well. 06/20 patient seen at bedside, no acute events overnight. He is not requiring pressors he is afebrile, hemodynamically stable saturating well on 2 L nasal cannula. Hemoglobin was 6.1 and platelets low at night, we will be transfused with packed red blood cells and platelets per critical Care, we will follow up post transfusion. Potassium decreased from 3.4 down to 3.2, creatinine stable at 10.2, we will follow up with Nephrology for recommendations. Urine output is improving, he has been started on Lasix, we will follow up. Patient continues on micafungin. Pt reticulocyte count low at 0.18 suggesting decreased production of RBC, FOBT positive as well concerning for GI Bleed. Will consult hematology and GI and follow up 06/21 patient seen at bedside, no acute events overnight. He has been afebrile, hemodynamically stable saturating well on 2 L nasal cannula. He has been NPO h owever he has no history of volume overload, and his kidney function is decreased, we will perfuse his kidneys with some IV fluids and allow clear liquid diet. Creatinine stable at 9.9, same as yesterday, potassium decreased at 3.0, nephrology to manage potassium levels until renal function improves. Hemoglobin improved from 8.0 up to 8.7, remainder of his labs are relatively unr emarkable. 06/22 Pt seen at bedside, no acute events overnight. He has been downgraded from ICU. He has been afebrile, hemodynamically stable, saturating well on room air. Hgb stable at 8.6, similar to yesterday, platelets decreased from 102 down to 82, potassium low at 2.7, will be repleted according to protocol, creatinine improved from 9.9 down to 8.5, sodium improved from 150 down to 146, remainder of his labs are relatively unremarkable. Urine output adequate, approximately 2.3L output in the last 24 hours. On physical exam, no evidence of volume overflow, will continue with IV fluids to perfuse his kidneys. Left foot gr owing mullins-resistant organism, ID to adjust antibiotics 06/23 patient seen at bedside, no acute events overnight. He is pending EGD with GI today, we will follow up postprocedure. He has been afebrile, hemodynamically stable, mildly hypertensive with systolics in the 150s, saturating well on 3 L nasal cannula. Hemoglobin improved from 8.6 up to 9.0, platelets decreased from 82 down to 78, creatinine continues to improve from 8.5 down to 7.2 with adequate urine output. Potassium low at 3.1, we will be rep leted according to potassium protocol. Patient weak and feeble, we will likely need transitioned to custodial facility, case management to assist with placement. He will continue daily physical therapy. 06/24 patient seen at bedside, no acute events overnight. EGD was done yesterday no evidence of bleed noted. Patient refusing colonoscopy. Hgb is uptrending from 9.0 up to 9.3 suggesting resolution of GI bleed, platelets improved from 78 up to 87, creatinine improved from 7.2 down to 6.4, potassium low at 3.4, will be repleted according to protocol. Patient will need placement for IV antibiotics 06/25 patient seen at bedside, no acute events overnight. Continues to refuse colonoscopy yesterday he went into AFib with RVR was started on IV amiodarone. He was rate controlled today, likely we will be transitioned to p.o. amiodarone. Now pending placement to continue IV antibiotic and antifungal therapy. We will follow up with case management and Cardiology. Creatinine improved from 6.4 down to 5.9, BUN still elevated at 112. Potassium low at 2.9 will be repleted according to protocol and will give an extra 80meq supplementation. 06/26 patient seen at bedside, no acute events overnight. He has been afebrile, hemodynamically stable saturating well on room air. WBC increased from 11.3 up to 13.1, hemoglobin stable at 9.7, same as yesterday, creatinine stable at 5.9, same as yesterday, BUN increased from 112 up to 117, remainder of his labs are relatively unremarkable. Proximally 1.1 L urine output in the last 24 hours. He is pending placement 06/27 Pt seen at bedside, no acute events overnight. He remains stable, vitals u nremarkable. Pending placement 06/28 patient seen at bedside, no acute events overnight. His urine output has been decreasing, his BUN is up trending and his creatinine stable at 5.9. Discuss with Nephrology and we will hold the IV fluids and start a short course of Lasix to see his response. If he does not improve he may end up needing renal replacement therapy. Remainder of his vitals and labs are unremarkable. 06/29 seen at bedside, no acute events overnight. He was started on Lasix yesterday, diuresed proximally 1.4 L and is -992 mL over the last 24 hours. He still appears fluid overloaded. BUN continues to uptrend, creatinine stable at 6.0, similar to yesterday. Continue to monitor renal function, if it continues to deteriorate or urine output decreases, he may need renal replacement therapy. REVIEW OF SYSTEMS 12 point review of systems negative unless noted in HPI PHYSICAL EXAM GENERAL APPEARANCE: The patient remains confused. Withdrawing to painful stimulation. NEUROLOGICAL: Cranial nerves II-XII grossly intact. Motor is 5/5 in bilateral upper and lower extremities proximal to distal. No sensory deficits. HEENT: Face is symmetric. Pupils are equal and reactive. Extraocular movements are intact. NECK: Supple. No JVD. No thyromegaly. No submental, submandibular, pre- /postauricular, occipital or supraclavicular lymphadenopathy. CHEST: Normal chest expansion. No Telemetry. LUNGS: Absence of any rales, rhonchi or any wheezing. CARDIOVASCULAR: Regular. S1 and S2 normal. No appreciable rubs, murmurs or gallops. ABDOMEN: Soft, nontender, and nondistended. There is no rebound, voluntary guarding, or rigidity. : Deferred. No Gallagher. EXTREMITIES: Non-edematous and not cyanotic. No clubbing. Good capillary refill. SKIN: No skin breakdown. Vital Signs (last 8hr) Date Time Temp Pulse Resp B/P (MAP) Pulse Ox O2 Delivery O2 Flow Rate FiO2 06/29/24 12:01 98.1 81 18 123/68 96 Nasal Cannula 2.0 06/29/24 09:46 84 113/61 06/29/24 08:00 96 Nasal Cannula* 2 28 06/29/24 07:49 97.3 74 18 106/55 94 Nasal Cannula 2.0 LABS: Laboratory: Test 06/29/24 11:32 06/29/24 04:04 Range/Units Whole Blood Glucose 112 H 70-110 MG/DL White Blood Count 10.0 4.8-10.8 K/uL Red Blood Count 3.17 L 4.50-6.20 MIL/uL Hemoglobin 9.5 L 14.0-18.0 g/dL Hematocrit 27.2 L 42-54 % Mean Corpuscular Volume 85.8 79-99 fL Mean Corpuscular Hemoglobin 30.0 27.0-33.0 pg Mean Corpuscular Hemoglobin Concent 34.9 32.0-36.0 g/dL Red Cell Distribution Width 15.8 H 11.0-15.5 % Platelet Count 343 # 130-400 K/uL Mean Platelet Volume 11.4 H 7.5-10.5 fL Immature Granulocyte % (Auto) 0.5 0-1 % Neutrophils (%) (Auto) 88.9 H 40.0-77.0 % Lymphocytes (%) (Auto) 3.1 L 21.0-51.0 % Monocytes (%) (Auto) 7.4 3.0-13.0 % Eosinophils (%) (Auto) 0.1 0.0-8.0 % Basophils (%) (Auto) 0.0 0.0-5.0 % Neutrophils # (Auto) 8.9 H 1.8-7.7 K/uL Lymphocytes # (Auto) 0.3 L 1.0-4.8 K/uL Monocytes # (Auto) 0.7 0.1-1.0 K/uL Eosinophils # (Auto) 0.01 0.00-0.70 K/uL Basophils # (Auto) 0.00 0.00-0.20 K/uL Absolute Immature Granulocyte (auto 0.05 0-1 K/uL Nucleated Red Blood Cells 0.0 0.0-0.19 % Sodium Level 138 136-145 mmol/L Potassium Level 3.6 3.5-5.1 mmol/L Chloride Level 98 L 101-111 mmol/L Carbon Dioxide Level 21 21-32 mmol/L Blood Urea Nitrogen 131 *H 7-18 mg/dL Creatinine 6.0 H 0.5-1.3 mg/dL Glomerular Filtration Rate Calc 9 >90 mL/min Random Glucose 197 #H 70-105 mg/dL Lactic Acid Level 1.6 0.8-2.5 mmol/L Total Calcium 7.5 L 8.5-10.1 mg/dL Phosphorus Level 8.3 H 2.5-4.9 mg/dL Magnesium Level 1.70 L 1.80-2.40 mg/dL Total Bilirubin 0.7 0.2-1.0 mg/dL Aspartate Amino Transf (AST/SGOT) 22 10-37 U/L Alanine Aminotransferase (ALT/SGPT) 15 12-78 U/L Alkaline Phosphatase 139 H 50-136 U/L B-Type Natriuretic Peptide 3180 H 0-100 pg/mL Total Protein 5.8 L 6.0-8.3 g/dL Albumin 2.3 L 3.5-5.0 g/dL Procalcitonin 0.36 0.05-0.5 ng/mL Current Medications Medications (Trade) Dose Ordered Sig/Roderick Route PRN Reason Start Time Stop Time Status Last Admin Dose Admin Albuterol Sulfate (Proventil 0.083% 2.5mg/3ml) 10 mg ONCE STAT IH 06/17/24 04:05 06/17/24 04:12 DC 06/17/24 04:31 10 MG Amiodarone HCl 360 mg/Dextrose 200 ml @ 0 mls/hr PROTOCOL IV 06/24/24 14:30 06/25/24 09:16 DC 06/24/24 15:51 33.33 MLS/HR Amiodarone HCl 540 mg/Dextrose 300 ml @ 0 mls/hr PROTOCOL IV 06/24/24 21:00 07/24/24 20:59 06/24/24 20:42 16.7 MLS/HR Amlodipine Besylate (NorvASC 5MG TAB) 5 mg BID PO 06/22/24 09:00 07/22/24 08:59 06/28/24 20:55 5 MG Apixaban (EliquIS) 5 mg BID PO 06/24/24 14:30 07/24/24 14:29 06/29/24 09:46 5 MG Calcium Carbonate (Tums 500 Mg Chew Tab) 500 tab ONCE PO 06/26/24 15:30 07/26/24 15:29 Cancel Calcium Carbonate (Tums 500 Mg Chew Tab) 500 tab Q6H6 PRN PO GI UPSET/UPSET STOMACH 06/28/24 12:00 07/28/24 11:59 06/28/24 21:10 1 TAB Calcium Gluconate (Calcium Gluc 1gm Vial) 1 gm AD STAT IV 06/17/24 04:05 06/17/24 04:12 DC 06/17/24 04:21 1 GM Cefepime HCl (MAXipime 1 GM vial) 0.25 gm Q24H IVPB 06/17/24 04:00 06/18/24 04:06 DC 06/17/24 04:58 0.25 GM Cefepime HCl (MAXipime 1 GM vial) 1 gm Q24H IVPB 06/20/24 05:00 06/22/24 16:09 DC 06/22/24 03:12 1 GM Cefepime HCl 0.25 gm/Sodium Chloride 50 ml @ 100 mls/hr Q24H IVPB 06/18/24 04:30 06/19/24 10:58 DC 06/19/24 05:26 100 MLS/HR Dextrose (D50w) 50 ml AD PRN IV HYPOGLYCEMIA PROTOCOL 06/17/24 01:00 06/17/24 01:01 DC Dextrose (D50w) 50 ml AD PRN IV HYPOGLYCEMIA PROTOCOL 06/17/24 01:00 07/17/24 00:59 Dextrose (D50w) 50 ml ONCE STAT IV 06/17/24 04:05 06/17/24 04:12 DC 06/17/24 04:21 50 ML Epoetin Rylan-epbx (Retacrit) 10,000 unit [id number] SQ 06/24/24 14:00 06/24/24 13:53 DC Epoetin Rylan-epbx (Retacrit) 10,000 unit QWEEK SQ 06/24/24 14:00 07/24/24 13:59 06/24/24 14:37 10,000 UNIT Famotidine (Pepcid 20mg Vial) 20 mg Q48H IV 06/17/24 01:00 07/17/24 00:59 06/29/24 00:57 20 MG Folic Acid (FOLic ACID 1 MG TABLET) 1 mg DAILY PO 06/25/24 09:00 07/25/24 08:59 06/29/24 09:46 1 MG Furosemide (LASix 40MG VIAL) 40 mg Q12H IV 06/28/24 21:00 07/28/24 20:59 06/29/24 09:49 40 MG Furosemide (LASix 40MG VIAL) 40 mg Q8H IV 06/19/24 18:30 06/20/24 18:31 DC 06/20/24 18:54 40 MG Glucagon (Glucagon 1mg Kit) 1 mg AD PRN IM HYPOGLYCEMIA PROTOCOL 06/17/24 01:00 06/17/24 01:01 DC Glucagon (Glucagon 1mg Kit) 1 mg AD PRN IM HYPOGLYCEMIA PROTOCOL 06/17/24 01:00 07/17/24 00:59 Hydralazine HCl ([id number] TAB) 25 mg TID PO 06/22/24 09:00 07/22/24 08:59 06/29/24 09:45 25 MG Hydrocortisone Sodium Succinate (Solu-corTEF 100MG) 50 mg ONCE@1930 IV 06/22/24 19:30 06/22/24 22:30 DC 06/22/24 19:59 50 MG Hydrocortisone Sodium Succinate (Solu-corTEF 100MG) 50 mg Q8H IV 06/18/24 11:30 06/22/24 15:46 DC 06/22/24 03:12 50 MG Hydrocortisone Sodium Succinate (Solu-corTEF 100MG) 50 mg Q8H6 IV 06/23/24 06:00 07/23/24 05:59 06/29/24 05:52 50 MG Hydromorphone HCl (DiLAUDid 0.5MG INJ) 0.5 mg Q4H PRN IVP SEVERE PAIN (7-10) 06/20/24 13:00 06/25/24 12:59 DC 06/21/24 23:50 0.5 MG Insulin Human Regular (humuLIN R 100 UNIT/ML 3ML) 10 unit ONCE STAT IV 06/17/24 04:05 06/17/24 04:12 DC 06/17/24 04:28 10 UNIT Insulin Human Regular (humuLIN R 100 UNIT/ML 3ML) INSULIN SLIDING SCAL... ACHS SQ 06/17/24 07:30 07/17/24 07:29 06/29/24 05:51 2 UNIT Lactated Ringer's 1,000 ml @ 130 mls/hr Q7H42M IV 06/21/24 09:30 06/28/24 09:51 DC 06/28/24 09:03 130 MLS/HR Lactobacillus Rhamnosus ([facility] [employer]) 1 each BID PO 06/28/24 10:00 07/28/24 09:59 06/29/24 09:41 1 EACH Leptospermum Honey (Medihoney) 1 appl DAILY TP 06/19/24 09:00 07/19/24 08:59 06/29/24 09:48 1 APPL Magnesium Sulfate 50 ml @ 0 mls/hr PROTOCOL PRN IV MAGNESIUM PROTOCOL 06/23/24 11:30 07/23/24 11:29 06/24/24 05:57 25 MLS/HR Metoprolol Tartrate (loprESSOR) 25 mg BID PO 06/24/24 14:30 07/24/24 14:29 06/29/24 09:46 25 MG Metronidazole/ Sodium Chloride (flaGYL) 500 mg Q8H IV 06/17/24 05:00 06/27/24 04:59 DC 06/26/24 21:48 500 MG Micafungin Sodium 100 ml @ 100 mls/hr Q24H IV 06/18/24 00:00 07/18/24 00:00 06/28/24 23:30 100 MLS/HR Morphine Sulfate (morPHINE 2MG SYG) 2 mg Q4H PRN IVP SEVERE PAIN (7-10) 06/29/24 00:30 07/06/24 00:29 Norepinephrine 250 ml @ 0 mls/hr PROTOCOL IV 06/16/24 22:00 06/22/24 07:20 DC 06/17/24 05:33 24.5 MLS/HR Ondansetron HCl (zoFRAN 4MG INJ) 4 mg Q6H PRN IVP NAUSEA/VOMITING 06/23/24 20:30 07/23/24 20:29 06/28/24 12:13 4 MG Pharmacy Profile Note (Lace Assessment) 1 each AD MISC 06/19/24 15:30 06/20/24 12:49 DC Pharmacy Profile Note (Pharmacy Communication) 1 each ONCE MISC 06/17/24 23:00 06/19/24 07:13 DC 06/17/24 23:31 1 EACH Pharmacy Profile Note (Pharmacy Communication) 1 each ONCE MISC 06/22/24 16:30 06/23/24 07:22 DC Phenylephrine HCl 100 mg/Sodium Chloride 250 ml @ 0 mls/hr AD PRN IV TITRATE 06/17/24 10:30 06/22/24 07:20 DC 06/18/24 05:48 27 MLS/HR Piperacillin Sod/ Tazobactam Sod (Zosyn 3.375gm+NS 50ml) 3.375 gm Q12H IV 06/16/24 21:30 06/17/24 01:03 DC 06/16/24 21:42 3.375 GM Piperacillin Sod/ Tazobactam Sod (Zosyn 3.375gm+NS 50ml) 3.375 gm Q12H IVPB 06/17/24 01:00 06/17/24 04:00 DC 06/17/24 02:54 3.375 GM Potassium Chloride 100 ml @ 100 mls/hr AD PRN IV POTASSIUM PROTOCOL 06/21/24 08:00 07/21/24 07:59 06/24/24 05:57 100 MLS/HR Potassium Chloride 100 ml @ 100 mls/hr AD PRN IV POTASSIUM PROTOCOL 06/23/24 11:30 07/23/24 11:29 Potassium Chloride (K-Dur/Klor-Con 20meq) 20 meq AD PRN PO POTASSIUM PROTOCOL 06/23/24 11:30 07/23/24 11:29 06/29/24 09:47 20 MEQ Potassium Chloride (K-Dur/Klor-Con 20meq) 40 meq BID PO 06/22/24 09:00 06/22/24 21:01 DC 06/22/24 19:54 40 MEQ Potassium Chloride (K-Dur/Klor-Con 20meq) 40 meq BID PO 06/25/24 09:00 06/28/24 09:51 DC 06/27/24 09:23 40 MEQ Potassium Chloride (KCl 10% Elixir 20meq/15ml) 20 meq AD PRN PO POTASSIUM PROTOCOL 06/23/24 11:30 07/23/24 11:29 Sodium Bicarbonate / Dextrose 1,000 ml @ 0 mls/hr Q0M IVP 06/17/24 05:00 06/17/24 04:58 DC Sodium Bicarbonate 150 meq/Dextrose 1,150 ml @ 50 mls/hr Q23H IVP 06/18/24 08:00 06/19/24 12:24 DC 06/18/24 20:23 100 MLS/HR Sodium Bicarbonate 150 meq/Dextrose 1,150 ml @ 100 mls/hr [id number] IVP 06/17/24 05:00 06/18/24 04:44 DC 06/17/24 21:00 100 MLS/HR Sodium Polystyrene Sulfonate (kayEXALate 15 GM/60 ML) 15 gm Q2H PO 06/16/24 21:30 06/16/24 23:31 DC 06/16/24 22:21 15 GM Sodium Chloride 1,000 ml @ 150 mls/hr Q6H40M IV 06/16/24 23:00 06/17/24 09:10 DC 06/17/24 05:15 150 MLS/HR Sodium Chloride (NS 50ml) 50 ml AD IV 06/17/24 01:00 06/17/24 01:05 DC Sucralfate (Carafate) 1 gm BID PO 06/28/24 12:30 06/28/24 22:30 DC 06/28/24 20:56 1 GM Thiamine HCl (Vitamin B-1) 100 mg DAILY IVP 06/17/24 09:00 07/17/24 08:59 06/29/24 09:49 100 MG Tigecycline 100 mg/Sodium Chloride 100 ml @ 200 mls/hr ONCE IV 06/22/24 16:30 06/23/24 07:21 DC 06/22/24 18:51 200 MLS/HR Tigecycline 50 mg/ Sodium Chloride 100 ml @ 200 mls/hr BID@0600,1800 IV 06/23/24 06:00 06/30/24 05:59 06/29/24 05:54 200 MLS/HR Vancomycin HCl (Vancomycin 750mg) 750 mg Q96H IVPB 06/20/24 22:00 06/17/24 14:00 DC Vancomycin HCl (Vancomycin Protocol) 1 each AD IV 06/17/24 01:30 06/17/24 14:01 DC Vitamin B Complex/ Vit C/Folic Acid (Nephrovite Tablet) 1 cap DAILY PO 06/24/24 09:00 07/24/24 08:59 06/29/24 09:40 1 CAP Wound Care/ Dressing Products (Venelex Ointment) 1 APPL BID TP 06/28/24 21:00 07/28/24 20:59 06/29/24 09:48 1 GM DIAGNOSTICS / RADIOLOGY: [ ] ASSESSMENT: Severe metabolic acidosis, resolved POA Septic shock requiring vasopressor, resolved POA Paroxysmal afib with RVR Fungemia 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 Nephrology consulted, appreciate recommendations Stop LR @ 130 cc/hr Start furosemide 40mg IV BID Continue clear liquid diet, will advance tomorrow GI consulted, appreciate recommendations Hematology consulted, appreciate recommendations Anemia workup. Transfuse as needed. Hematology consultation requested per Follow critical care input and recommendation Disposition: Pending placement, improvement in renal function, nephrology recommendations AL CARDONA MD Jun 29, 2024 14:19
[2024-06-29] MEDS: EPOETIN ALFA-EPBX (NON-ESRD) 10,000 UNIT/ML VIAL SQ SCH (15:21)
--- NOTE | 2024-06-29 16:04 | PN ---
NEPHROLOGY PROGRESS NOTE Date/Time Patient Seen: Jun 29, 2024 SUBJECTIVE: This is a 69-year-old male with a past medical history of peripheral artery disease with osteomyelitis S/p left 4th and 5th toe and right 3rd toe amputation, anemia, chronic pain, diabetes mellitus type 2, hypertension, hyperlipidemia, chronic kidney disease, recent COVID-19 infection. He presented to the emergency room via EMS from [facility] with complaints of low platelets, poor appetite and generalized weakness. Influenza and COVID swabs were negative CT of the abdomen showed mild enterocolitis with mild to moderate small and large bowel liquid contents. He was admitted to the ICU for further medical management of septic shock He continues to require vasopressors to maintain blood pressure. Continues with a severe lactic acidosis. Blood cultures were positive for Alicia tropicalis He continues on antibiotics In the emergency room he was noted to have elevated BUN/creatinine and hyperkalemia. Renal function remains elevated Electrolytes are stable. Urine output was noted Renal ultrasound was noted Hematology evaluation continues He was seen in the medical floor, in no acute distress Family at the bedside Condition remains critical and guarded REVIEW OF SYSTEMS: GENERAL: Negative for any nausea, vomiting, fevers, chills, or weight loss. NEUROLOGIC: Negative for any blurry vision, blind spots, double vision, facial asymmetry, dysphagia, dysarthria, hemiparesis, hemisensory deficits, vertigo, ataxia. HEENT: Negative for any head trauma, neck trauma, neck stiffness, photophobia, phonophobia, sinusitis, rhinitis. CARDIAC: Negative for any chest pain, dyspnea on exertion, paroxysmal nocturnal dyspnea, peripheral edema. PULMONARY: Negative for any shortness of breath, wheezing, COPD, or TB exposure. GASTROINTESTINAL: Negative for any abdominal pain, nausea, vomiting, bright red blood per rectum, melena. GENITOURINARY: Negative for any dysuria, hematuria, incontinence. INTEGUMENTARY: Negative for any rashes, cuts, insect bites. RHEUMATOLOGIC: Negative for any joint pains, photosensitive rashes, history of vasculitis or kidney problems. HEMATOLOGIC: Negative for any abnormal bruising, frequent infections or bleeding. PHYSICAL EXAM: GENERAL: Lethargic. No acute distress. Well-nourished. EYES: EOMI. Anicteric. HENT: Moist mucous membranes. No scleral icterus. No cervical lymphadenopathy. LUNGS: Clear to auscultation bilaterally. No accessory muscle use. CARDIOVASCULAR: Regular rate and rhythm. No murmur. No JVD. ABDOMEN: Soft, non-tender and non-distended. No palpable masses. EXTREMITIES: No edema. Non-tender. SKIN: No rashes or lesions. Warm. NEUROLOGIC: No focal neurological deficits. CN II-XII grossly intact, but not individually tested. PSYCHIATRIC: Cooperative. Appropriate mood and affect. LABORATORY: [ ] Hematology Labs: Test 06/29/24 04:04 Range/Units White Blood Count 10.0 4.8-10.8 K/uL Red Blood Count 3.17 L 4.50-6.20 MIL/uL Hemoglobin 9.5 L 14.0-18.0 g/dL Hematocrit 27.2 L 42-54 % Mean Corpuscular Volume 85.8 79-99 fL Mean Corpuscular Hemoglobin 30.0 27.0-33.0 pg Mean Corpuscular Hemoglobin Concent 34.9 32.0-36.0 g/dL Red Cell Distribution Width 15.8 H 11.0-15.5 % Platelet Count 343 # 130-400 K/uL Mean Platelet Volume 11.4 H 7.5-10.5 fL Immature Granulocyte % (Auto) 0.5 0-1 % Neutrophils (%) (Auto) 88.9 H 40.0-77.0 % Lymphocytes (%) (Auto) 3.1 L 21.0-51.0 % Monocytes (%) (Auto) 7.4 3.0-13.0 % Eosinophils (%) (Auto) 0.1 0.0-8.0 % Basophils (%) (Auto) 0.0 0.0-5.0 % Neutrophils # (Auto) 8.9 H 1.8-7.7 K/uL Lymphocytes # (Auto) 0.3 L 1.0-4.8 K/uL Monocytes # (Auto) 0.7 0.1-1.0 K/uL Eosinophils # (Auto) 0.01 0.00-0.70 K/uL Basophils # (Auto) 0.00 0.00-0.20 K/uL Absolute Immature Granulocyte (auto 0.05 0-1 K/uL Nucleated Red Blood Cells 0.0 0.0-0.19 % Chemistry Labs: Test 06/29/24 11:32 06/29/24 04:04 Range/Units Whole Blood Glucose 112 H 70-110 MG/DL Sodium Level 138 136-145 mmol/L Potassium Level 3.6 3.5-5.1 mmol/L Chloride Level 98 L 101-111 mmol/L Carbon Dioxide Level 21 21-32 mmol/L Blood Urea Nitrogen 131 *H 7-18 mg/dL Creatinine 6.0 H 0.5-1.3 mg/dL Glomerular Filtration Rate Calc 9 >90 mL/min Random Glucose 197 #H 70-105 mg/dL Lactic Acid Level 1.6 0.8-2.5 mmol/L Total Calcium 7.5 L 8.5-10.1 mg/dL Phosphorus Level 8.3 H 2.5-4.9 mg/dL Magnesium Level 1.70 L 1.80-2.40 mg/dL Total Bilirubin 0.7 0.2-1.0 mg/dL Aspartate Amino Transf (AST/SGOT) 22 10-37 U/L Alanine Aminotransferase (ALT/SGPT) 15 12-78 U/L Alkaline Phosphatase 139 H 50-136 U/L B-Type Natriuretic Peptide 3180 H 0-100 pg/mL Total Protein 5.8 L 6.0-8.3 g/dL Albumin 2.3 L 3.5-5.0 g/dL Procalcitonin 0.36 0.05-0.5 ng/mL DIAGNOSTICS / RADIOLOGY: REASON: SOB ORDERING PHYSICIAN: LALI BOLDEN NP PROCEDURE: CXR1VW - CHEST 1VW PORTABLE CHEST RADIOGRAPH INDICATION: SOB COMPARISON: 06/18/2024 FINDINGS: cloth carrier leads overlie the field of view. Tip of right PICC within the SVC. Heart remains enlarged. The pulmonary vascularity and mauricio appear normal. No abnormal pulmonary parenchymal opacity or consolidation identified. No significant pleural effusion noted. No pneumothorax detected. IMPRESSION: Stable cardiac megaly without radiographic evidence for any acute cardiopulmonary process. DICTATED BY: ROLANDO HAN MD DATE: 06/19/24 1011 REASON: SOB ORDERING PHYSICIAN: LALI BOLDEN NP PROCEDURE: CXR1VW - CHEST 1VW PORTABLE CHEST RADIOGRAPH INDICATION: SOB COMPARISON: 06/16/2024 FINDINGS: cloth carrier leads overlie the field of view. Patient positioning is not optimal, but the radiologic examination is still believed to be of reasonable diagnostic quality. Stable right PICC. Stable heart size. Mild calcific plaque is present along the aortic arch rosales. The pulmonary vascularity and mauricio appear normal. Suspect very small layering right and very small left pleural effusions with subjacent passive linear opacities. No evidence for consolidation. No pneumothorax detected. IMPRESSION: Suspect very small layering right and very small left pleural effusions with subjacent passive atelectasis. DICTATED BY: ROLANDO HAN MD DATE: 06/19/24 1021 REASON: sob ORDERING PHYSICIAN: LILIAM LACY PROCEDURE: ECHO CMP - ECHO 2-D COMPLETE APPROVED REPORT EXAM: Two-dimensional and M-mode echocardiogram with Doppler and color Doppler. INDICATION ICD: R06.02 Shortness of breath 2D Dimensions RVDd 5.0 cm LVEF(%) 68.3 (>50%) LVED Vol(simp.) 128.0 mL IVSd 1.4 (0.7-1.1cm) FS(%) 38 % LVES Vol(simp.) 51.0 mL LVDd 4.2 (3.8-5.6cm) LA (2D) 4.0 (1.6-4.0cm) LVEF(%, simp.) 60 % PWd 1.5 (0.7-1.1cm) Ao Root(2D) 4.0 (2.0-3.7cm) LA ESV INDEX (BP) 37.99 mL/m2 LVDs 2.6 (2.5-4.0cm) LVOT diam 2.3 (1.8-2.4cm) IVC diam 2.1 cm Deformation Strain Apical 4 -19.0 % Apical 2 -15.0 % Apical 3 -16.0 % Global Strain -17.0 % M-Mode Dimensions EPSS 1.1 cm LA (MM) 4.0 (1.6-4.0cm) Ao Root(MM) 3.0 (2.0-3.7cm) Aortic Valve AoV Vmax 2.5 m/s Ao Peak GR 24.7 mmHg LVOT Vmax 1.5 m/s AoV VTI 0.4 m Ao Mean GR 15.1 mmHg LVOT VTI 0.29 m DEBORA (VMAX) 2.9 cm2 DEBORA (VTI) 2.9 cm2 Mitral Valve MV E Vmax 144.9 cm/s DECEL Time 175 ms MV A Vmax 128.2 cm/s P 1/2 T 58 ms E/A ratio 1.1 MVA (PHT) 3.8 cm2 TDI E/E' Medial 16.1 E/E' Lateral 14.5 Medial E' Peak V 9.00 cm/s Lateral E' Peak V 10.00 cm/s Pulmonary Valve PV Vmax 1.3 m/s Tricuspid Valve TR Vmax 2.7 m/s RAP (EST) 3 mmHg RVSP 32.3 mmHg TR Peak GR 29.3 mmHg Left Ventricle The left ventricle is normal size. GS -17%. Hyoerdynamic LV with normal LV segmental wall motion. Moderate concentric left ventricular hypertrophy. LVEF is 60-65%. Grade 2 diastolic dysfunction. Right Ventricle The right ventricle is moderately dilated, measuring 5.0 cm. The right ventricular systolic function is normal. Atria The left atrium is mildly dilated with an LA ESV index of 38 mL/m�. The right atrium is moderately dilated. Aortic Valve Aortic valve is trileaflet, with mild sclerosis of the left coronary cusp. The aortic valve is seen to open near normally. No aortic regurgitation is present. There is no aortic valvular stenosis. Mitral Valve Mitral valve leaflets open well. Posterior annular and leaflet calcification noted. There is no mitral valve regurgitation noted. There is no mitral valve stenosis. Tricuspid Valve The tricuspid valve is normal in structure. There is trace of tricuspid valve regurgitation noted. Pulmonic Valve The pulmonary valve is normal in structure. There is no pulmonic valvular regurgitation. Great Vessels The aortic root is normal in size. The IVC is normal in size and collapses >50% with inspiration. Pericardium There is no pericardial effusion. Other Information Quality : Adequate Conclusion The left ventricle is normal size. Moderate concentric left ventricular hypertrophy. GS -17%. Hyoerdynamic LV with normal LV segmental wall motion. LVEF is 60-65%. Grade 2 diastolic dysfunction. Aortic valve is trileaflet, with mild sclerosis of the left coronary cusp. The aortic valve is seen to open near normally. There is no aortic valvular stenosis. Mitral valve leaflets open well. Posterior annular and leaflet calcification noted. There is no mitral valve stenosis. There is no mitral valve regurgitation noted. There is no pericardial effusion. DICTATED BY: KATJA LANDRY MD DATE: 06/17/24 0847 REASON: RENAL FAILURE ORDERING PHYSICIAN: EUSEBIO POWELL AGPCNP PROCEDURE: ABD PEL WO - CT ABDOMEN/PELVIS W/O CONTRAST CT ABDOMEN WITHOUT CONTRAST. CT PELVIS WITHOUT CONTRAST. INDICATION: Renal failure TECHNIQUE: Routine transaxial imaging using 5 mm slice thickness through the abdomen and pelvis without the administration of IV contrast. Thin slice reconstructions are also provided. Coronal and sagittal reformatted images acquired for interpretation. CT was performed with one or more of the following dose reduction techniques: Automated exposure control, adjustment of the mA and/or kV according to patient size, or use of iterative reconstruction technique. COMPARISON: None FINDINGS: Diagnostic sensitivity of this examination is limited by patient motion artifact. ON NONCONTRAST IMAGING: ABDOMEN: Heart size is normal. Mitral annular calcific plaque. Visible lung bases are clear. No abnormal renal calcifications, hydronephrosis, perinephric inflammation, or proximal hydroureter detected. The liver is normal in size and smooth in contour without biliary duct dilation. The spleen is normal in size and attenuation. Several miniscule calcifications within the gallbladder lumen. The pancreas appears normal without pancreatic duct dilation. The adrenal glands appear normal. No significant abdominal, retrocrural or retroperitoneal adenopathy noted. No evidence for intra-abdominal free air or organized fluid collection. Mild calcific plaque is noted along the abdominal aortic and iliac vessel rosales without aneurysmal dilation. PELVIS: Gallagher catheter within the nearly empty urinary bladder. Urinary bladder wall thickening is more than expected for empty urinary bladder. No evidence for free air or organized pelvic fluid collection. No significant pelvic adenopathy detected. Mild to moderate small and large bowel liquid contents. A few diverticula along the distal colon. Terminal ileum appears unremarkable. The appendix appears normal. Mild thoracolumbar spondylosis. IMPRESSION: 1. Probable mild enterocolitis with mild to moderate small and large bowel liquid contents. 2. Cholelithiasis. 3. Urinary bladder wall thickening, more than expected for empty urinary bladder. Correlation with urine studies is recommended. 4. Mild distal colonic diverticulosis. 5. Arteriosclerotic disease as described. DICTATED BY: ROLANDO HAN MD DATE: 06/17/24 1000 REASON: NETO ORDERING PHYSICIAN: BRENDA MAI MD PROCEDURE: RENAL - US RENAL SONOGRAM ULTRASOUND RENAL COMPLETE INDICATION: NETO TECHNIQUE: Routine ultrasound of the kidneys and urinary bladder with grayscale and color Doppler imaging was performed in real-time, and subsequently made available for review. COMPARISON: No prior studies available for comparison. FINDINGS: The right kidney measures 9.7 x 4.9 x 4.6 cm. No abnormal mass demonstrated. No evidence for hydronephrosis or shadowing stone. The left kidney measures 10.1 x 5.5 x 4.8 cm. No abnormal mass demonstrated. No evidence for hydronephrosis or shadowing stone. Urinary bladder wall thickness measures 4.0 mm, but exaggerated due to incomplete distention. No free fluid demonstrated. IMPRESSION: Normal sonographic appearance of the kidneys and urinary bladder. DICTATED BY: ROLANDO HAN MD DATE: 06/17/24 0949 REASON: cp ORDERING PHYSICIAN: MARY CARR MD PROCEDURE: CXR1VW - CHEST 1VW PORTABLE CHEST RADIOGRAPH INDICATION: cp COMPARISON: 05/06/2024 FINDINGS: cloth carrier leads overlie the field of view. Tip of right PICC within the SVC. Heart size is normal. Mild calcific plaque is present along the aortic arch rosales. The pulmonary vascularity and mauricio appear normal. No abnormal pulmonary parenchymal opacity or consolidation identified. No significant pleural effusion noted. No pneumothorax detected. IMPRESSION: No radiographic evidence for any acute cardiopulmonary process. DICTATED BY: ROLANDO HAN MD DATE: 06/16/24 3660 ASSESSMENT: Acute on chronic renal failure Severe Lactic acidosis Metabolic acidosis Hyperkalemia Septic shock, requiring vasopressor Acute encephalopathy Thrombocytopenia NSTEMI, rule-out demand ischemia vs true cardiac etiology Failure to thrive History of osteomyelitis with recent amputation Elevated troponin Elevated BNP Diabetes mellitus type 2 Hypertension Hyperlipidemia Peripheral artery disease PLAN: Labs, diagnostic, radiologic exams reviewed and interpreted by myself and supervising physician. We have reviewed external records in detail There is no need for emergent renal replacement therapy at this time. Discontinue morphine Continue with diuretics Require close monitoring of renal function and electrolytes Order CBC, CMP, and electrolytes in am Follow up culture results BiPAP as necessary, for respiratory distress Monitor blood pressure adjust medication doses as needed Avoid hypotensive episodes May use Dilaudid 0.5 mg IV every 6 hours as needed for severe pain Monitor blood sugars Strict intake, output, and daily weight should be monitored Please renally adjust medications Avoid nephrotoxic and nonsteroidal drugs Avoid contrast if possible Will continue to monitor renal function, anemia, electrolytes Treatment plan discussed with patient Questions were answered We have discussed with the other team physicians in detail about the care plan We will continue to monitor the patient closely ATTESTATION BY PHYSICIAN I have seen and examined the patient. I reviewed the documentation, medical decision making, and treatment plan as noted by the mid-level provider above. I agree with the findings and plan of care. BRENDA MAI MD, [facility] Jun 29, 2024 16:04
--- NOTE | 2024-06-29 18:17 | PN ---
69-year-old male with past medical history of diabetes mellitus type 2, hypertension, ESRD (baseline Cr ~2.3, now up to 7.2�9.9, GFR ~5�8), osteomyelitis with history of multiple toe amputations, recent septic shock (now off vasopressors), and ongoing broad-spectrum antibiotic therapy. Patient is a poor historian and resides in a nursing facility. Per family, he was doing relatively well until ~1 week ago when he had decreased oral intake and developed progressive lethargy. He had a recent COVID infection three weeks ago, now resolved. He presented with acute encephalopathy, hyperkalemia, metabolic acidosis, and severe thrombocytopenia (initially 32K, now improving to 78K). Notable labs include chronic normocytic anemia (Hgb trending 6.1�9.0), thrombocytopenia (platelets aren 28K, now 78K), and pancytopenia picture. Peripheral smear shows hypochromia, rouleaux formation, hypersegmented neutrophils, no schistocytes or helmet cells. Reticulocyte count is low (0.18%), immature reticulocytes elevated (2%). Iron saturation is high (79.7%), with low TIBC (94), suggesting anemia of chronic disease or myelodysplasia. Platelet count today is 343K PHYSICAL EXAM GENERAL: No acute respiratory distress. VITAL SIGNS: Reviewed and stable. HEENT: The sclerae are clear. The pupils are equal and reactive to light. The oropharyngeal cavity is within normal limits. NECK: Supple without lymphadenopathy. CHEST: Lung is clear bilaterally there is no wheezing or crackles. HEART: Sounds are regular and rhythmic. ABDOMEN: No guarding or rigidity. Bowel sounds positive. NEUROLOGICAL: The patient is alert and oriented. No focal deficits. Patient with generalized weakness. LYMPH NODES: There is no lymphadenopathy could be felt in the neck, supraclavicular, or axillary. IMPRESSION 1. Normocytic normochromic anemia. Hemoglobin level 9.5 g/deciliter 2. Acute on chronic renal failure with the patient did not start dialysis yet 3. Thrombocytopenia. Platelet count 343K 4. History of hypertension 5. Diabetes mellitus 6. Lower extremity osteomyelitis Plan 1. Peripheral blood smear showed rouleaux phenomena. SPEP and free light chain was ordered. If there is monoclonal protein we will do bone marrow biopsy. 2. Continue care as per nephrology. It seems there is no plan for hemodialysis at this time. 3. This patient could benefit from Procrit 10,000 units subcu for now maybe Saturday and Saturday and Saturday until hemoglobin is above 10. 4. Colonoscopy actually was done on this patient. Will follow-up with the result 5. If this patient discharged to follow-up with me in 2 weeks Vitals/Labs Vital Signs Date Time Temp Pulse Resp B/P (MAP) Pulse Ox O2 Delivery O2 Flow Rate FiO2 06/29/24 16:31 97.7 67 16 114/59 96 Nasal Cannula 2.0 06/29/24 08:00 28 Laboratory Tests 06/29/24 04:04 Medications Current Medications Sodium Chloride 1,000 ml @ 0 mls/hr ONCE ONCE IV Last administered on 06/16/24at 21:22; Start 06/16/24 at 21:30; Stop 06/16/24 at 21:31; Status DC Piperacillin Sod/ Tazobactam Sod 3.375 gm Q12H IV Last administered on 06/16/24at 21:42; Start 06/16/24 at 21:30; Stop 06/17/24 at 01:03; Status DC Vancomycin HCl 1 gm ONCE ONCE IV; Start 06/16/24 at 21:30; Stop 06/16/24 at 21:34; Status DC Enoxaparin Sodium 80 mg ONCE ONCE SQ Last administered on 06/16/24at 23:15; Start 06/16/24 at 21:30; Stop 06/16/24 at 21:46; Status DC Calcium Gluconate 1 gm/Sodium Chloride 110 ml @ 110 mls/hr ONCE ONCE IV Last administered on 06/16/24at 22:03; Start 06/16/24 at 21:30; Stop 06/16/24 at 22:29; Status DC Albuterol Sulfate 10 mg ONCE ONCE IH Last administered on 06/16/24at 21:53; Start 06/16/24 at 21:30; Stop 06/16/24 at 21:35; Status DC Sodium Polystyrene Sulfonate 15 gm Q2H PO Last administered on 06/16/24at 22:21; Start 06/16/24 at 21:30; Stop 06/16/24 at 23:31; Status DC Albuterol Sulfate 2.5 mg STK-MED ONCE IH; Start 06/16/24 at 21:34; Stop 06/16/24 at 21:34; Status DC Norepinephrine 250 ml @ 0 mls/hr PROTOCOL IV Last administered on 06/17/24at 05:33; Start 06/16/24 at 22:00; Stop 06/22/24 at 07:20; Status DC Vancomycin HCl 250 ml @ 125 mls/hr ONCE ONCE IV Last administered on 06/16/24at 22:21; Start 06/16/24 at 22:00; Stop 06/16/24 at 23:59; Status DC Sodium Zirconium Cyclosilicate 10 gm ONCE ONCE PO Last administered on 06/16/24at 23:13; Start 06/16/24 at 23:00; Stop 06/16/24 at 23:04; Status DC Sodium Chloride 1,000 ml @ 150 mls/hr Q6H40M IV Last administered on 06/17/24at 05:15; Start 06/16/24 at 23:00; Stop 06/17/24 at 09:10; Status DC Thiamine HCl 100 mg DAILY IVP Last administered on 06/29/24at 09:49; Start 06/17/24 at 09:00; Stop 07/17/24 at 08:59 Famotidine 20 mg Q48H IV Last administered on 06/29/24at 00:57; Start 06/17/24 at 01:00; Stop 07/17/24 at 00:59 Insulin Human Regular INSULIN SLIDING SCAL... ACHS SQ Last administered on 06/29/24at 05:51; Start 06/17/24 at 07:30; Stop 07/17/24 at 07:29 Dextrose 50 ml AD PRN IV; Start 06/17/24 at 01:00; Stop 07/17/24 at 00:59 Glucagon 1 mg AD PRN IM; Start 06/17/24 at 01:00; Stop 06/17/24 at 01:01; Status DC Piperacillin Sod/ Tazobactam Sod 3.375 gm Q12H IVPB Last administered on 06/17/24at 02:54; Start 06/17/24 at 01:00; Stop 06/17/24 at 04:00; Status DC Sodium Chloride 50 ml AD IV; Start 06/17/24 at 01:00; Stop 06/17/24 at 01:05; Status DC Vancomycin HCl 1.5 gm ONCE ONCE IV; Start 06/17/24 at 01:00; Stop 06/17/24 at 01:27; Status DC Dextrose 50 ml AD PRN IV; Start 06/17/24 at 01:00; Stop 06/17/24 at 01:01; Status DC Glucagon 1 mg AD PRN IM; Start 06/17/24 at 01:00; Stop 07/17/24 at 00:59 Vancomycin HCl 1 each AD IV; Start 06/17/24 at 01:30; Stop 06/17/24 at 14:01; Status DC Vancomycin HCl 750 mg Q96H IVPB; Start 06/20/24 at 22:00; Stop 06/17/24 at 14:00; Status DC Sodium Chloride 1,368 ml @ 456 mls/hr ONCE ONCE IV Last administered on 06/17/24at 02:55; Start 06/17/24 at 02:00; Stop 06/17/24 at 04:59; Status DC Sodium Bicarbonate 100 meq ONCE ONCE IV Last administered on 06/17/24at 02:54; Start 06/17/24 at 02:00; Stop 06/17/24 at 02:02; Status DC Cefepime HCl 0.25 gm Q24H IVPB Last administered on 06/17/24at 04:58; Start 06/17/24 at 04:00; Stop 06/18/24 at 04:06; Status DC Insulin Human Regular 10 unit ONCE STAT IV Last administered on 06/17/24at 04:28; Start 06/17/24 at 04:05; Stop 06/17/24 at 04:12; Status DC Dextrose 50 ml ONCE STAT IV Last administered on 06/17/24at 04:21; Start 06/17/24 at 04:05; Stop 06/17/24 at 04:12; Status DC Calcium Gluconate 1 gm AD STAT IV Last administered on 06/17/24at 04:21; Start 06/17/24 at 04:05; Stop 06/17/24 at 04:12; Status DC Albuterol Sulfate 10 mg ONCE STAT IH Last administered on 06/17/24at 04:31; Start 06/17/24 at 04:05; Stop 06/17/24 at 04:12; Status DC Metronidazole/ Sodium Chloride 500 mg Q8H IV Last administered on 06/26/24at 21:48; Start 06/17/24 at 05:00; Stop 06/27/24 at 04:59; Status DC Sodium Bicarbonate 50 meq ONCE ONCE IV Last administered on 06/17/24at 04:58; Start 06/17/24 at 05:00; Stop 06/17/24 at 05:01; Status DC Sodium Bicarbonate / Dextrose 1,000 ml @ 0 mls/hr Q0M IVP; Start 06/17/24 at 05:00; Stop 06/17/24 at 04:58; Status DC Sodium Bicarbonate 150 meq/Dextrose 1,150 ml @ 100 mls/hr [id number] IVP Last administered on 06/17/24at 21:00; Start 06/17/24 at 05:00; Stop 06/18/24 at 04:44; Status DC Sodium Bicarbonate 100 meq ONCE ONCE IV Last administered on 06/17/24at 10:19; Start 06/17/24 at 10:00; Stop 06/17/24 at 10:01; Status DC Phenylephrine HCl 100 mg/Sodium Chloride 250 ml @ 0 mls/hr AD PRN IV Last administered on 06/18/24at 05:48; Start 06/17/24 at 10:30; Stop 06/22/24 at 07:20; Status DC Magnesium Sulfate 50 ml @ As Directed STK-MED ONCE IV Last administered on 06/17/24at 16:03; Start 06/17/24 at 15:59; Stop 06/17/24 at 16:00; Status DC Pharmacy Profile Note 1 each ONCE MISC Last administered on 06/17/24at 23:31; Start 06/17/24 at 23:00; Stop 06/19/24 at 07:13; Status DC Micafungin Sodium 100 ml @ 100 mls/hr Q24H IV Last administered on 06/28/24at 23:30; Start 06/18/24 at 00:00; Stop 07/18/24 at 00:00 Cefepime HCl 0.25 gm/Sodium Chloride 50 ml @ 100 mls/hr Q24H IVPB Last administered on 06/19/24at 05:26; Start 06/18/24 at 04:30; Stop 06/19/24 at 10:58; Status DC Sodium Bicarbonate 150 meq/Dextrose 1,150 ml @ 50 mls/hr Q23H IVP Last administered on 06/18/24at 20:23; Start 06/18/24 at 08:00; Stop 06/19/24 at 12:24; Status DC Hydrocortisone Sodium Succinate 50 mg Q8H IV Last administered on 06/22/24at 03:12; Start 06/18/24 at 11:30; Stop 06/22/24 at 15:46; Status DC Leptospermum Honey 1 appl DAILY TP Last administered on 06/29/24at 09:48; Start 06/19/24 at 09:00; Stop 07/19/24 at 08:59 Furosemide 40 mg ONCE ONCE IV Last administered on 06/18/24at 21:50; Start 06/18/24 at 20:30; Stop 06/18/24 at 20:34; Status DC Cefepime HCl 1 gm Q24H IVPB Last administered on 06/22/24at 03:12; Start 06/20/24 at 05:00; Stop 06/22/24 at 16:09; Status DC Furosemide 60 mg ONCE ONCE IV Last administered on 06/19/24at 11:55; Start 06/19/24 at 11:30; Stop 06/19/24 at 11:31; Status DC Potassium Chloride 100 ml @ 50 mls/hr ONCE ONCE IV Last administered on 06/19/24at 13:56; Start 06/19/24 at 12:30; Stop 06/19/24 at 14:29; Status DC Epoetin Rylan-epbx 10,000 unit ONCE ONCE SQ Last administered on 06/19/24at 16:45; Start 06/19/24 at 16:00; Stop 06/19/24 at 16:01; Status DC Pharmacy Profile Note 1 each AD MISC; Start 06/19/24 at 15:30; Stop 06/20/24 at 12:49; Status DC Furosemide 40 mg Q8H IV Last administered on 06/20/24at 18:54; Start 06/19/24 at 18:30; Stop 06/20/24 at 18:31; Status DC Potassium Chloride 100 ml @ As Directed STK-MED ONCE IV Last administered on 06/20/24at 12:17; Start 06/20/24 at 12:11; Stop 06/20/24 at 12:11; Status DC Hydromorphone HCl 0.5 mg Q4H PRN IVP Last administered on 06/21/24at 23:50; Start 06/20/24 at 13:00; Stop 06/25/24 at 12:59; Status DC Hydromorphone HCl 0.5 mg STK-MED ONCE .ROUTE; Start 06/20/24 at 12:48; Stop 06/20/24 at 12:52; Status DC Potassium Chloride 100 ml @ 100 mls/hr AD PRN IV Last administered on 06/24/24at 05:57; Start 06/21/24 at 08:00; Stop 07/21/24 at 07:59 Lactated Ringer's 1,000 ml @ 130 mls/hr Q7H42M IV Last administered on 06/28/24at 09:03; Start 06/21/24 at 09:30; Stop 06/28/24 at 09:51; Status DC Amlodipine Besylate 5 mg BID PO Last administered on 06/28/24at 20:55; Start 06/22/24 at 09:00; Stop 07/22/24 at 08:59 Hydralazine HCl 25 mg TID PO Last administered on 06/29/24at 15:20; Start 06/22/24 at 09:00; Stop 07/22/24 at 08:59 Potassium Chloride 40 meq BID PO Last administered on 06/22/24at 19:54; Start 06/22/24 at 09:00; Stop 06/22/24 at 21:01; Status DC Hydrocortisone Sodium Succinate 50 mg Q8H6 IV Last administered on 06/29/24at 15:20; Start 06/23/24 at 06:00; Stop 07/23/24 at 05:59 Hydrocortisone Sodium Succinate 50 mg ONCE@1930 IV Last administered on 06/22/24at 19:59; Start 06/22/24 at 19:30; Stop 06/22/24 at 22:30; Status DC Pharmacy Profile Note 1 each ONCE MISC; Start 06/22/24 at 16:30; Stop 06/23/24 at 07:22; Status DC Tigecycline 100 mg/Sodium Chloride 100 ml @ 200 mls/hr ONCE IV Last administered on 06/22/24at 18:51; Start 06/22/24 at 16:30; Stop 06/23/24 at 07:21; Status DC Tigecycline 50 mg/ Sodium Chloride 100 ml @ 200 mls/hr BID@0600,1800 IV Last administered on 06/29/24at 17:57; Start 06/23/24 at 06:00; Stop 06/30/24 at 05:59 Propofol 200 mg STK-MED ONCE IV; Start 06/23/24 at 10:49; Stop 06/23/24 at 10:49; Status DC Propofol 200 mg STK-MED ONCE IV; Start 06/23/24 at 10:49; Stop 06/23/24 at 10:49; Status DC Magnesium Sulfate 50 ml @ 0 mls/hr PROTOCOL PRN IV Last administered on 06/29/24at 15:22; Start 06/23/24 at 11:30; Stop 07/23/24 at 11:29 Potassium Chloride 100 ml @ 100 mls/hr AD PRN IV; Start 06/23/24 at 11:30; Stop 07/23/24 at 11:29 Potassium Chloride 20 meq AD PRN PO; Start 06/23/24 at 11:30; Stop 07/23/24 at 11:29 Potassium Chloride 20 meq AD PRN PO Last administered on 06/29/24at 15:19; Start 06/23/24 at 11:30; Stop 07/23/24 at 11:29 Polyethylene Glycol/ Electrolytes 4,000 ml ONCE ONCE PO Last administered on 06/23/24at 12:55; Start 06/23/24 at 14:00; Stop 06/23/24 at 14:01; Status DC Vitamin B Complex/ Vit C/Folic Acid 1 cap DAILY PO Last administered on 06/29/24at 09:40; Start 06/24/24 at 09:00; Stop 07/24/24 at 08:59 Ondansetron HCl 4 mg Q6H PRN IVP Last administered on 06/28/24at 12:13; Start 06/23/24 at 20:30; Stop 07/23/24 at 20:29 Metoprolol Tartrate 5 mg ONCE ONCE IV Last administered on 06/24/24at 09:36; Start 06/24/24 at 09:30; Stop 06/24/24 at 09:31; Status DC Folic Acid 1 mg DAILY PO Last administered on 06/29/24at 09:46; Start 06/25/24 at 09:00; Stop 07/25/24 at 08:59 Epoetin Rylan-epbx 10,000 unit [id number] SQ; Start 06/24/24 at 14:00; Stop 06/24/24 at 13:53; Status DC Epoetin Rylan-epbx 10,000 unit QWEEK SQ Last administered on 06/24/24at 14:37; Start 06/24/24 at 14:00; Stop 06/29/24 at 14:23; Status DC Amiodarone HCl 360 mg/Dextrose 200 ml @ 0 mls/hr PROTOCOL IV Last administered on 06/24/24at 15:51; Start 06/24/24 at 14:30; Stop 06/25/24 at 09:16; Status DC Amiodarone HCl 540 mg/Dextrose 300 ml @ 0 mls/hr PROTOCOL IV Last administered on 06/24/24at 20:42; Start 06/24/24 at 21:00; Stop 07/24/24 at 20:59 Apixaban 5 mg BID PO Last administered on 06/29/24at 09:46; Start 06/24/24 at 14:30; Stop 07/24/24 at 14:29 Metoprolol Tartrate 25 mg BID PO Last administered on 06/29/24at 09:46; Start 06/24/24 at 14:30; Stop 07/24/24 at 14:29 Amiodarone HCL/ Dextrose 100 ml @ 0 mls/hr ONCE ONCE IV Last administered on 06/24/24at 15:34; Start 06/24/24 at 16:00; Stop 06/24/24 at 16:01; Status DC Potassium Chloride 40 meq BID PO Last administered on 06/27/24at 09:23; Start 06/25/24 at 09:00; Stop 06/28/24 at 09:51; Status DC Calcium Carbonate 500 tab ONCE PO; Start 06/26/24 at 15:30; Stop 07/26/24 at 15:29; Status Cancel Calcium Carbonate 1 tab ONCE ONCE PO; Start 06/26/24 at 16:00; Stop 06/26/24 at 16:01; Status Cancel Calcium Carbonate 1 tab ONCE ONCE PO Last administered on 06/26/24at 17:05; Start 06/26/24 at 16:00; Stop 06/26/24 at 16:01; Status DC Furosemide 40 mg ONCE ONCE IV Last administered on 06/28/24at 10:21; Start 06/28/24 at 10:00; Stop 06/28/24 at 10:15; Status DC Wound Care/ Dressing Products 1 APPL BID TP Last administered on 06/29/24at 09:48; Start 06/28/24 at 21:00; Stop 07/28/24 at 20:59 Lactobacillus Rhamnosus 1 each BID PO Last administered on 06/29/24at 09:41; Start 06/28/24 at 10:00; Stop 07/28/24 at 09:59 Furosemide 40 mg Q12H IV Last administered on 06/29/24at 09:49; Start 06/28/24 at 21:00; Stop 07/28/24 at 20:59 Calcium Carbonate 500 tab Q6H6 PRN PO Last administered on 06/28/24at 21:10; Start 06/28/24 at 12:00; Stop 07/28/24 at 11:59 Sucralfate 1 gm BID PO Last administered on 06/28/24at 20:56; Start 06/28/24 at 12:30; Stop 06/28/24 at 22:30; Status DC Morphine Sulfate 2 mg Q4H PRN IVP; Start 06/29/24 at 00:30; Stop 07/06/24 at 00:29 Epoetin Rylan-epbx 10,000 unit QMOWEFR@1600 SQ Last administered on 06/29/24at 15:21; Start 06/29/24 at 15:00; Stop 07/29/24 at 14:59 TOYA MANSFIELD MD Jun 29, 2024 18:17
--- NOTE | 2024-06-29 22:25 | PN ---
INFECTIOUS DISEASE PROGRESS NOTE Date of Service: Jun 29, 2024 SUBJECTIVE: Patient is awake, alert and oriented. Patient is afebrile this morning, temperature is 98.1� and a WBC of 10.0. Currently continues on Tygacil IV and micafungin IV. Per report patient has be en approved to [facility]. No other issues reported by nursing. PHYSICAL EXAM EYES: Anicteric. Pupils equal and reactive. HENT: No oral thrush seen, moist Oral mucosa. NECK: Supple, no JVD or thyromegaly. LUNGS: Good air entry. No rales, no rhonchi. CARDIOVASCULAR: S1, S2 regular. No murmur heard. ABDOMEN: Soft, non tender, bowel sounds present, no organomegaly. CENTRAL NERVOUS SYSTEM: Awake, alert, oriented x 2. SKIN: No rashes, no swelling. LYMPHATICS: No peripheral lymphadenopathy. MUSCULOSKELETAL: No joint swelling, erythema or tenderness. EXTREMITIES: No cyanosis or clubbing. 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 BACK: No deformity, no pressure ulcer. GENITOURINARY: No dysuria or hematuria. Vital Sign (Last 12 Hours) 06/29/24 06/29/24 06/29/24 12:01 16:31 19:40 Temp 98.1 97.7 98.1 Pulse 81 67 70 Resp 18 16 18 B/P (MAP) 123/68 114/59 134/65 Pulse Ox 96 96 96 O2 Delivery Nasal Cannula Nasal Cannula Nasal Cannula O2 Flow Rate 2.0 2.0 2.0 Intake & Output (last 24hrs) 06/28/24 06/28/24 06/29/24 15:00 23:00 07:00 Intake Total 458.0 ml Output Total 250 ml 1200 ml Balance 208.0 ml -1200 ml LABS: Laboratory: Test 06/29/24 20:11 06/29/24 04:04 Range/Units Whole Blood Glucose 159 H 70-110 MG/DL White Blood Count 10.0 4.8-10.8 K/uL Red Blood Count 3.17 L 4.50-6.20 MIL/uL Hemoglobin 9.5 L 14.0-18.0 g/dL Hematocrit 27.2 L 42-54 % Mean Corpuscular Volume 85.8 79-99 fL Mean Corpuscular Hemoglobin 30.0 27.0-33.0 pg Mean Corpuscular Hemoglobin Concent 34.9 32.0-36.0 g/dL Red Cell Distribution Width 15.8 H 11.0-15.5 % Platelet Count 343 # 130-400 K/uL Mean Platelet Volume 11.4 H 7.5-10.5 fL Immature Granulocyte % (Auto) 0.5 0-1 % Neutrophils (%) (Auto) 88.9 H 40.0-77.0 % Lymphocytes (%) (Auto) 3.1 L 21.0-51.0 % Monocytes (%) (Auto) 7.4 3.0-13.0 % Eosinophils (%) (Auto) 0.1 0.0-8.0 % Basophils (%) (Auto) 0.0 0.0-5.0 % Neutrophils # (Auto) 8.9 H 1.8-7.7 K/uL Lymphocytes # (Auto) 0.3 L 1.0-4.8 K/uL Monocytes # (Auto) 0.7 0.1-1.0 K/uL Eosinophils # (Auto) 0.01 0.00-0.70 K/uL Basophils # (Auto) 0.00 0.00-0.20 K/uL Absolute Immature Granulocyte (auto 0.05 0-1 K/uL Nucleated Red Blood Cells 0.0 0.0-0.19 % Sodium Level 138 136-145 mmol/L Potassium Level 3.6 3.5-5.1 mmol/L Chloride Level 98 L 101-111 mmol/L Carbon Dioxide Level 21 21-32 mmol/L Blood Urea Nitrogen 131 *H 7-18 mg/dL Creatinine 6.0 H 0.5-1.3 mg/dL Glomerular Filtration Rate Calc 9 >90 mL/min Random Glucose 197 #H 70-105 mg/dL Lactic Acid Level 1.6 0.8-2.5 mmol/L Total Calcium 7.5 L 8.5-10.1 mg/dL Phosphorus Level 8.3 H 2.5-4.9 mg/dL Magnesium Level 1.70 L 1.80-2.40 mg/dL Total Bilirubin 0.7 0.2-1.0 mg/dL Aspartate Amino Transf (AST/SGOT) 22 10-37 U/L Alanine Aminotransferase (ALT/SGPT) 15 12-78 U/L Alkaline Phosphatase 139 H 50-136 U/L B-Type Natriuretic Peptide 3180 H 0-100 pg/mL Total Protein 5.8 L 6.0-8.3 g/dL Albumin 2.3 L 3.5-5.0 g/dL Procalcitonin 0.36 0.05-0.5 ng/mL ASSESSMENT: Fungemia. 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 Septic shock, resolving. Anemia requiring blood transfusion, status post EGD. Acute renal failure. PLAN: Continue tigecycline IV. Continue micafungin. Continue wound care. Infrastructure Architect following patient. Avoid nephrotoxic medications. Patient was referred to [facility]ter and has been approved. This case was reviewed and discussed with my supervising physician and the above assessment and plan was formulated and agreed upon. ATTESTATION BY PHYSICIAN I have seen and examined the patient. I reviewed the documentation, medical decision making, and treatment plan as noted by the mid-level provider above. I agree with the findings and plan of care. CECIL ROY MD, MIRTA L [facility] Jun 29, 2024 22:25
[2024-06-30] VITALS (8 sets, daily range): BP systolic 107–133; BP diastolic 53–69; PULSE 62–89; RESP 16–20; TEMP 97.5–98.4; O2SAT 95–96
--- NOTE | 2024-06-30 00:31 | NUR ---
received call from pharmacist digna. stated micafungin is back ordered and not available. Will need to call
--- NOTE | 2024-06-30 00:41 | NUR ---
Call placed to hospitalist answering service to notify that micafungin is on back order at this time as per pharmacist. pending call back.
--- NOTE | 2024-06-30 04:29 | NUR ---
patient refused blood draw x3 times. stated he did not want any labs drawn at this time. Will ask patient later if laura to draw labs.
[2024-06-30 09:27] LABS: HEMATOCRIT 29.8 % (42-54); LYMPHOCYTES % (AUTO) 3.2 % (21.0-51.0); MEAN CORPUSCULAR HEMOGLOBIN 30.2 pg (27.0-33.0); MEAN CORPUSCULAR HGB CONC 34.6 g/dL (32.0-36.0); MEAN CORPUSCULAR VOLUME 87.4 fL (79-99); NEUTROPHILS % (AUTO) 91.7 % (40.0-77.0); PLATELET COUNT (AUTO) 399 K/uL (130-400); RED BLOOD CELL COUNT(AUTO) 3.41 MIL/uL (4.50-6.20); RED CELL DISTRIBUTION WIDTH 16.2 % (11.0-15.5); WHITE BLOOD COUNT (AUTO) 10.2 K/uL (4.8-10.8)
[2024-06-30 09:28] LABS: BASOPHILS # (AUTO) 0.01 K/uL (0.00-0.20); BASOPHILS % (AUTO) 0.1 % (0.0-5.0); IMMATURE GRANULOCYTE ABSOLUTE 0.04 K/uL (0-1); LYMPHOCYTES # (AUTO) 0.3 K/uL (1.0-4.8); MONOCYTES # (AUTO) 0.5 K/uL (0.1-1.0); MONOCYTES % (AUTO) 4.6 % (3.0-13.0); NEUTROPHILS # (AUTO) 9.3 K/uL (1.8-7.7)
[2024-06-30 09:36] LABS: CREATININE 6.4 mg/dL (0.5-1.3); POTASSIUM 3.4 mmol/L (3.5-5.1)
--- NOTE | 2024-06-30 11:30 | PN ---
NEPHROLOGY PROGRESS NOTE Date/Time Patient Seen: Jun 30, 2024 SUBJECTIVE: This is a 69-year-old male with a past medical history of peripheral artery disease with osteomyelitis S/p left 4th and 5th toe and right 3rd toe amputation, anemia, chronic pain, diabetes mellitus type 2, hypertension, hyperlipidemia, chronic kidney disease, recent COVID-19 infection. He presented to the emergency room via EMS from [facility] with complaints of low platelets, poor appetite and generalized weakness. Influenza and COVID swabs were negative CT of the abdomen showed mild enterocolitis with mild to moderate small and large bowel liquid contents. He was admitted to the ICU for further medical management of septic shock He continues to require vasopressors to maintain blood pressure. Continues with a severe lactic acidosis. Blood cultures were positive for Alicia tropicalis He continues on antibiotics In the emergency room he was noted to have elevated BUN/creatinine and hyperkalemia. Renal function continues to worsen Electrolytes are stable. Urine output was noted Renal ultrasound was noted Hematology evaluation continues He was seen in the medical floor, in no acute distress Family at the bedside Condition remains critical and guarded REVIEW OF SYSTEMS: GENERAL: Negative for any nausea, vomiting, fevers, chills, or weight loss. NEUROLOGIC: Negative for any blurry vision, blind spots, double vision, facial asymmetry, dysphagia, dysarthria, hemiparesis, hemisensory deficits, vertigo, ataxia. HEENT: Negative for any head trauma, neck trauma, neck stiffness, photophobia, phonophobia, sinusitis, rhinitis. CARDIAC: Negative for any chest pain, dyspnea on exertion, paroxysmal nocturnal dyspnea, peripheral edema. PULMONARY: Negative for any shortness of breath, wheezing, COPD, or TB exposure. GASTROINTESTINAL: Negative for any abdominal pain, nausea, vomiting, bright red blood per rectum, melena. GENITOURINARY: Negative for any dysuria, hematuria, incontinence. INTEGUMENTARY: Negative for any rashes, cuts, insect bites. RHEUMATOLOGIC: Negative for any joint pains, photosensitive rashes, history of vasculitis or kidney problems. HEMATOLOGIC: Negative for any abnormal bruising, frequent infections or bleeding. PHYSICAL EXAM: GENERAL: Lethargic. No acute distress. Well-nourished. EYES: EOMI. Anicteric. HENT: Moist mucous membranes. No scleral icterus. No cervical lymphadenopathy. LUNGS: Clear to auscultation bilaterally. No accessory muscle use. CARDIOVASCULAR: Regular rate and rhythm. No murmur. No JVD. ABDOMEN: Soft, non-tender and non-distended. No palpable masses. EXTREMITIES: No edema. Non-tender. SKIN: No rashes or lesions. Warm. NEUROLOGIC: No focal neurological deficits. CN II-XII grossly intact, but not individually tested. PSYCHIATRIC: Cooperative. Appropriate mood and affect. LABORATORY: [ ] Hematology Labs: Test 06/30/24 09:16 Range/Units White Blood Count 10.2 4.8-10.8 K/uL Red Blood Count 3.41 L 4.50-6.20 MIL/uL Hemoglobin 10.3 L 14.0-18.0 g/dL Hematocrit 29.8 L 42-54 % Mean Corpuscular Volume 87.4 79-99 fL Mean Corpuscular Hemoglobin 30.2 27.0-33.0 pg Mean Corpuscular Hemoglobin Concent 34.6 32.0-36.0 g/dL Red Cell Distribution Width 16.2 H 11.0-15.5 % Platelet Count 399 130-400 K/uL Mean Platelet Volume 11.4 H 7.5-10.5 fL Immature Granulocyte % (Auto) 0.4 0-1 % Neutrophils (%) (Auto) 91.7 H 40.0-77.0 % Lymphocytes (%) (Auto) 3.2 L 21.0-51.0 % Monocytes (%) (Auto) 4.6 3.0-13.0 % Eosinophils (%) (Auto) 0.0 0.0-8.0 % Basophils (%) (Auto) 0.1 0.0-5.0 % Neutrophils # (Auto) 9.3 H 1.8-7.7 K/uL Lymphocytes # (Auto) 0.3 L 1.0-4.8 K/uL Monocytes # (Auto) 0.5 0.1-1.0 K/uL Eosinophils # (Auto) 0.00 0.00-0.70 K/uL Basophils # (Auto) 0.01 0.00-0.20 K/uL Absolute Immature Granulocyte (auto 0.04 0-1 K/uL Nucleated Red Blood Cells 0.0 0.0-0.19 % Chemistry Labs: Test 06/30/24 09:16 06/30/24 06:24 06/29/24 04:04 Range/Units Sodium Level 135 L 136-145 mmol/L Potassium Level 3.4 L 3.5-5.1 mmol/L Chloride Level 95 L 101-111 mmol/L Carbon Dioxide Level 24 21-32 mmol/L Blood Urea Nitrogen 137 *H 7-18 mg/dL Creatinine 6.4 H 0.5-1.3 mg/dL Glomerular Filtration Rate Calc 9 >90 mL/min Random Glucose 192 H 70-105 mg/dL Total Calcium 7.4 L 8.5-10.1 mg/dL Whole Blood Glucose 184 H 70-110 MG/DL Lactic Acid Level 1.6 0.8-2.5 mmol/L Phosphorus Level 8.3 H 2.5-4.9 mg/dL Magnesium Level 1.70 L 1.80-2.40 mg/dL Total Bilirubin 0.7 0.2-1.0 mg/dL Aspartate Amino Transf (AST/SGOT) 22 10-37 U/L Alanine Aminotransferase (ALT/SGPT) 15 12-78 U/L Alkaline Phosphatase 139 H 50-136 U/L B-Type Natriuretic Peptide 3180 H 0-100 pg/mL Total Protein 5.8 L 6.0-8.3 g/dL Albumin 2.3 L 3.5-5.0 g/dL Procalcitonin 0.36 0.05-0.5 ng/mL DIAGNOSTICS / RADIOLOGY: REASON: hypoxia resp failure ORDERING PHYSICIAN: SMITA BRICE PROCEDURE: CXR1VW - CHEST 1VW CHEST 1VW HISTORY: Hypoxia COMPARISON: 06/09/2024 FINDINGS: A frontal projection of the chest was obtained. There are bilateral pulmonary infiltrates suggestive of pulmonary vascular congestion with possible superimposed pneumonitis. The heart is borderline enlarged. Degenerative changes are seen. No evidence of aortic calcification is seen. IMPRESSION: 1. Bilateral pulmonary infiltrates are seen suggestive of pulmonary vascular congestion with possible superimposed pneumonitis. DICTATED BY: PEDRO VERDUGO MD DATE: 06/29/24 1245 REASON: SOB ORDERING PHYSICIAN: LALI BOLDEN NP PROCEDURE: CXR1VW - CHEST 1VW PORTABLE CHEST RADIOGRAPH INDICATION: SOB COMPARISON: 06/18/2024 FINDINGS: surveillance system monitor leads overlie the field of view. Tip of right PICC within the SVC. Heart remains enlarged. The pulmonary vascularity and mauricio appear normal. No abnormal pulmonary parenchymal opacity or consolidation identified. No significant pleural effusion noted. No pneumothorax detected. IMPRESSION: Stable cardiac megaly without radiographic evidence for any acute cardiopulmonary process. DICTATED BY: ROLANDO HAN MD DATE: 06/19/24 1011 REASON: SOB ORDERING PHYSICIAN: LALI BOLDEN NP PROCEDURE: CXR1VW - CHEST 1VW PORTABLE CHEST RADIOGRAPH INDICATION: SOB COMPARISON: 06/16/2024 FINDINGS: surveillance system monitor leads overlie the field of view. Patient positioning is not optimal, but the radiologic examination is still believed to be of reasonable diagnostic quality. Stable right PICC. Stable heart size. Mild calcific plaque is present along the aortic arch rosales. The pulmonary vascularity and mauricio appear normal. Suspect very small layering right and very small left pleural effusions with subjacent passive linear opacities. No evidence for consolidation. No pneumothorax detected. IMPRESSION: Suspect very small layering right and very small left pleural effusions with subjacent passive atelectasis. DICTATED BY: ROLANDO HAN MD DATE: 06/19/24 1021 REASON: sob ORDERING PHYSICIAN: LILIAM LACY PROCEDURE: ECHO CMP - ECHO 2-D COMPLETE APPROVED REPORT EXAM: Two-dimensional and M-mode echocardiogram with Doppler and color Doppler. INDICATION ICD: R06.02 Shortness of breath 2D Dimensions RVDd 5.0 cm LVEF(%) 68.3 (>50%) LVED Vol(simp.) 128.0 mL IVSd 1.4 (0.7-1.1cm) FS(%) 38 % LVES Vol(simp.) 51.0 mL LVDd 4.2 (3.8-5.6cm) LA (2D) 4.0 (1.6-4.0cm) LVEF(%, simp.) 60 % PWd 1.5 (0.7-1.1cm) Ao Root(2D) 4.0 (2.0-3.7cm) LA ESV INDEX (BP) 37.99 mL/m2 LVDs 2.6 (2.5-4.0cm) LVOT diam 2.3 (1.8-2.4cm) IVC diam 2.1 cm Deformation Strain Apical 4 -19.0 % Apical 2 -15.0 % Apical 3 -16.0 % Global Strain -17.0 % M-Mode Dimensions EPSS 1.1 cm LA (MM) 4.0 (1.6-4.0cm) Ao Root(MM) 3.0 (2.0-3.7cm) Aortic Valve AoV Vmax 2.5 m/s Ao Peak GR 24.7 mmHg LVOT Vmax 1.5 m/s AoV VTI 0.4 m Ao Mean GR 15.1 mmHg LVOT VTI 0.29 m DEBORA (VMAX) 2.9 cm2 DEBORA (VTI) 2.9 cm2 Mitral Valve MV E Vmax 144.9 cm/s DECEL Time 175 ms MV A Vmax 128.2 cm/s P 1/2 T 58 ms E/A ratio 1.1 MVA (PHT) 3.8 cm2 TDI E/E' Medial 16.1 E/E' Lateral 14.5 Medial E' Peak V 9.00 cm/s Lateral E' Peak V 10.00 cm/s Pulmonary Valve PV Vmax 1.3 m/s Tricuspid Valve TR Vmax 2.7 m/s RAP (EST) 3 mmHg RVSP 32.3 mmHg TR Peak GR 29.3 mmHg Left Ventricle The left ventricle is normal size. GS -17%. Hyoerdynamic LV with normal LV segmental wall motion. Moderate concentric left ventricular hypertrophy. LVEF is 60-65%. Grade 2 diastolic dysfunction. Right Ventricle The right ventricle is moderately dilated, measuring 5.0 cm. The right ventricular systolic function is normal. Atria The left atrium is mildly dilated with an LA ESV index of 38 mL/m�. The right atrium is moderately dilated. Aortic Valve Aortic valve is trileaflet, with mild sclerosis of the left coronary cusp. The aortic valve is seen to open near normally. No aortic regurgitation is present. There is no aortic valvular stenosis. Mitral Valve Mitral valve leaflets open well. Posterior annular and leaflet calcification noted. There is no mitral valve regurgitation noted. There is no mitral valve stenosis. Tricuspid Valve The tricuspid valve is normal in structure. There is trace of tricuspid valve regurgitation noted. Pulmonic Valve The pulmonary valve is normal in structure. There is no pulmonic valvular regurgitation. Great Vessels The aortic root is normal in size. The IVC is normal in size and collapses >50% with inspiration. Pericardium There is no pericardial effusion. Other Information Quality : Adequate Conclusion The left ventricle is normal size. Moderate concentric left ventricular hypertrophy. GS -17%. Hyoerdynamic LV with normal LV segmental wall motion. LVEF is 60-65%. Grade 2 diastolic dysfunction. Aortic valve is trileaflet, with mild sclerosis of the left coronary cusp. The aortic valve is seen to open near normally. There is no aortic valvular stenosis. Mitral valve leaflets open well. Posterior annular and leaflet calcification noted. There is no mitral valve stenosis. There is no mitral valve regurgitation noted. There is no pericardial effusion. DICTATED BY: KATJA LANDRY MD DATE: 06/17/24 0847 REASON: RENAL FAILURE ORDERING PHYSICIAN: EUSEBIO POWELL PROCEDURE: ABD PEL WO - CT ABDOMEN/PELVIS W/O CONTRAST CT ABDOMEN WITHOUT CONTRAST. CT PELVIS WITHOUT CONTRAST. INDICATION: Renal failure TECHNIQUE: Routine transaxial imaging using 5 mm slice thickness through the abdomen and pelvis without the administration of IV contrast. Thin slice reconstructions are also provided. Coronal and sagittal reformatted images acquired for interpretation. CT was performed with one or more of the following dose reduction techniques: Automated exposure control, adjustment of the mA and/or kV according to patient size, or use of iterative reconstruction technique. COMPARISON: None FINDINGS: Diagnostic sensitivity of this examination is limited by patient motion artifact. ON NONCONTRAST IMAGING: ABDOMEN: Heart size is normal. Mitral annular calcific plaque. Visible lung bases are clear. No abnormal renal calcifications, hydronephrosis, perinephric inflammation, or proximal hydroureter detected. The liver is normal in size and smooth in contour without biliary duct dilation. The spleen is normal in size and attenuation. Several miniscule calcifications within the gallbladder lumen. The pancreas appears normal without pancreatic duct dilation. The adrenal glands appear normal. No significant abdominal, retrocrural or retroperitoneal adenopathy noted. No evidence for intra-abdominal free air or organized fluid collection. Mild calcific plaque is noted along the abdominal aortic and iliac vessel rosales without aneurysmal dilation. PELVIS: Gallagher catheter within the nearly empty urinary bladder. Urinary bladder wall thickening is more than expected for empty urinary bladder. No evidence for free air or organized pelvic fluid collection. No significant pelvic adenopathy detected. Mild to moderate small and large bowel liquid contents. A few diverticula along the distal colon. Terminal ileum appears unremarkable. The appendix appears normal. Mild thoracolumbar spondylosis. IMPRESSION: 1. Probable mild enterocolitis with mild to moderate small and large bowel liquid contents. 2. Cholelithiasis. 3. Urinary bladder wall thickening, more than expected for empty urinary bladder. Correlation with urine studies is recommended. 4. Mild distal colonic diverticulosis. 5. Arteriosclerotic disease as described. DICTATED BY: ROLANDO HAN MD DATE: 06/17/24 1000 REASON: NETO ORDERING PHYSICIAN: BRENDA MAI MD PROCEDURE: RENAL - US RENAL SONOGRAM ULTRASOUND RENAL COMPLETE INDICATION: NETO TECHNIQUE: Routine ultrasound of the kidneys and urinary bladder with grayscale and color Doppler imaging was performed in real-time, and subsequently made available for review. COMPARISON: No prior studies available for comparison. FINDINGS: The right kidney measures 9.7 x 4.9 x 4.6 cm. No abnormal mass demonstrated. No evidence for hydronephrosis or shadowing stone. The left kidney measures 10.1 x 5.5 x 4.8 cm. No abnormal mass demonstrated. No evidence for hydronephrosis or shadowing stone. Urinary bladder wall thickness measures 4.0 mm, but exaggerated due to incomplete distention. No free fluid demonstrated. IMPRESSION: Normal sonographic appearance of the kidneys and urinary bladder. DICTATED BY: ROLANDO HAN MD DATE: 06/17/24 0949 REASON: cp ORDERING PHYSICIAN: MARY CARR MD PROCEDURE: CXR1VW - CHEST 1VW PORTABLE CHEST RADIOGRAPH INDICATION: cp COMPARISON: 05/06/2024 FINDINGS: surveillance system monitor leads overlie the field of view. Tip of right PICC within the SVC. Heart size is normal. Mild calcific plaque is present along the aortic arch rosales. The pulmonary vascularity and mauricio appear normal. No abnormal pulmonary parenchymal opacity or consolidation identified. No significant pleural effusion noted. No pneumothorax detected. IMPRESSION: No radiographic evidence for any acute cardiopulmonary process. DICTATED BY: ROLANDO HAN MD DATE: 06/16/24 2154 ASSESSMENT: Acute on chronic renal failure Severe Lactic acidosis Metabolic acidosis Hyperkalemia Septic shock, requiring vasopressor Acute encephalopathy Thrombocytopenia NSTEMI, rule-out demand ischemia vs true cardiac etiology Failure to thrive History of osteomyelitis with recent amputation Elevated troponin Elevated BNP Diabetes mellitus type 2 Hypertension Hyperlipidemia Peripheral artery disease PLAN: Labs, diagnostic, radiologic exams reviewed and interpreted by myself and supervising physician. We have reviewed external records in detail From a renal standpoint, the function continues to decline and electrolytes remain unbalanced. The patient has remained hemodynamically stable and therefore we will recommend dialysis intervention to correct electrolytes as well as BUN and Creatinine. Risk and complications of renal replacement therapy, vascular access, and modalities were explained in great detail to the patient and family. If family and patient agree then we will proceed with hemodialysis PermCath replaced by IR tomorrow, dialysis to follow Require close monitoring of renal function and electrolytes Order CBC, CMP, and electrolytes in am Follow up culture results BiPAP as necessary, for respiratory distress Monitor blood pressure adjust medication doses as needed Avoid hypotensive episodes May use Dilaudid 0.5 mg IV every 6 hours as needed for severe pain Monitor blood sugars Strict intake, output, and daily weight should be monitored Please renally adjust medications Avoid nephrotoxic and nonsteroidal drugs Avoid contrast if possible Will continue to monitor renal function, anemia, electrolytes Treatment plan discussed with patient Questions were answered We have discussed with the other team physicians in detail about the care plan We will continue to monitor the patient closely ATTESTATION BY PHYSICIAN I have seen and examined the patient. I reviewed the documentation, medical decision making, and treatment plan as noted by the mid-level provider above. I agree with the findings and plan of care. BRENDA MAI MD, [facility] Jun 30, 2024 11:30
--- NOTE | 2024-06-30 11:57 | NUR ---
[facility] Follow-up: Patient re-assessed by wound healing team. Assessment and recommendations provided to primary nurse. Education provided. Wound care done. Addendum: 06/30/24 at 1423 by MATT PEREZ RN RN/ Amended: Links added.
--- NOTE | 2024-06-30 12:02 | PN ---
GASTROENTEROLOGY PROGRESS NOTE Date of Visit: Jun 30, 2024 Time of Visit: 12:02 Events / Notes: No acute events overnight. Patient had EGD revealing mucosal changes suspicious for gastritis. Denies fever, chills, abdominal pain, N/V, hematemesis, bloating, constipation, diarrhea, melena or hematochezia. Review of Systems: CONSTITUTIONAL: No malaise or change in sensation of wellbeing. ENMT: No rhinorrhea, otorrhea, sinus pain, ear ache. CARDIOVASCULAR: No angina, palpitations, orthopnea or paroxysmal dyspnea. RESPIRATORY: No SOB. GASTROINTESTINAL: No abdominal pain, nausea, vomiting, diarrhea, hematemesis, melena or change in the patient's habitual bowel movements consistency/number. GENITOURINARY: No dysuria, hematuria or change in bladder continence. MUSCULOSKELETAL: No new muscle pain or decrease in muscular strength. No new joint swelling, redness or tenderness. SKIN: No new rash. Physical Exam: GEN: Awake, alert, oriented in person, time and place, and in no acute distress. HEENT: No sinus tenderness. Tympanic membranes were not examined. No rhinorrhea. Oral pharyngeal mucosa is pink, moist and within normal limits. Neck is supple with no cervical lymphadenopathy, thyromegaly or JVD. CHEST: Inspection, palpation and percussion of the chest were unremarkable. Lung auscultation revealed normal breath sounds bilaterally. CARDIAC: PMI is within normal limits. Heart sounds are regular. Normal S1, S2. No gallop or murmur. ABD: Soft, non-tender and not distended. No peritoneal signs on palpation. No organomegaly. Normal bowel sounds. EXT: No cyanosis or clubbing. No edema. SKIN: Intact. No rashes. JOINTS: No evidence of synovitis or acute arthritis. NEURO: Alert and oriented to name, place and person. Cranial nerve examination is unremarkable. No focal motor deficits. Normal speech. Gait is normal. Strength is normal. Vital Signs (last 8hr) Date Time Temp Pulse Resp B/P (MAP) Pulse Ox O2 Delivery O2 Flow Rate FiO2 06/30/24 11:54 98.2 80 16 133/64 98 Nasal Cannula 2.0 06/30/24 07:32 98.4 77 16 112/53 97 Nasal Cannula 2.0 Laboratory: [ ] Laboratory: Test 06/30/24 11:35 06/30/24 09:16 06/29/24 04:04 Range/Units Whole Blood Glucose 145 H 70-110 MG/DL White Blood Count 10.2 4.8-10.8 K/uL Red Blood Count 3.41 L 4.50-6.20 MIL/uL Hemoglobin 10.3 L 14.0-18.0 g/dL Hematocrit 29.8 L 42-54 % Mean Corpuscular Volume 87.4 79-99 fL Mean Corpuscular Hemoglobin 30.2 27.0-33.0 pg Mean Corpuscular Hemoglobin Concent 34.6 32.0-36.0 g/dL Red Cell Distribution Width 16.2 H 11.0-15.5 % Platelet Count 399 130-400 K/uL Mean Platelet Volume 11.4 H 7.5-10.5 fL Immature Granulocyte % (Auto) 0.4 0-1 % Neutrophils (%) (Auto) 91.7 H 40.0-77.0 % Lymphocytes (%) (Auto) 3.2 L 21.0-51.0 % Monocytes (%) (Auto) 4.6 3.0-13.0 % Eosinophils (%) (Auto) 0.0 0.0-8.0 % Basophils (%) (Auto) 0.1 0.0-5.0 % Neutrophils # (Auto) 9.3 H 1.8-7.7 K/uL Lymphocytes # (Auto) 0.3 L 1.0-4.8 K/uL Monocytes # (Auto) 0.5 0.1-1.0 K/uL Eosinophils # (Auto) 0.00 0.00-0.70 K/uL Basophils # (Auto) 0.01 0.00-0.20 K/uL Absolute Immature Granulocyte (auto 0.04 0-1 K/uL Nucleated Red Blood Cells 0.0 0.0-0.19 % Sodium Level 135 L 136-145 mmol/L Potassium Level 3.4 L 3.5-5.1 mmol/L Chloride Level 95 L 101-111 mmol/L Carbon Dioxide Level 24 21-32 mmol/L Blood Urea Nitrogen 137 *H 7-18 mg/dL Creatinine 6.4 H 0.5-1.3 mg/dL Glomerular Filtration Rate Calc 9 >90 mL/min Random Glucose 192 H 70-105 mg/dL Total Calcium 7.4 L 8.5-10.1 mg/dL Lactic Acid Level 1.6 0.8-2.5 mmol/L Phosphorus Level 8.3 H 2.5-4.9 mg/dL Magnesium Level 1.70 L 1.80-2.40 mg/dL Total Bilirubin 0.7 0.2-1.0 mg/dL Aspartate Amino Transf (AST/SGOT) 22 10-37 U/L Alanine Aminotransferase (ALT/SGPT) 15 12-78 U/L Alkaline Phosphatase 139 H 50-136 U/L B-Type Natriuretic Peptide 3180 H 0-100 pg/mL Total Protein 5.8 L 6.0-8.3 g/dL Albumin 2.3 L 3.5-5.0 g/dL Procalcitonin 0.36 0.05-0.5 ng/mL Current Medications Medications (Trade) Dose Ordered Sig/Roderick Route PRN Reason Start Time Stop Time Status Last Admin Dose Admin Albuterol Sulfate (Proventil 0.083% 2.5mg/3ml) 10 mg ONCE STAT IH 06/17/24 04:05 06/17/24 04:12 DC 06/17/24 04:31 10 MG Amiodarone HCl 360 mg/Dextrose 200 ml @ 0 mls/hr PROTOCOL IV 06/24/24 14:30 06/25/24 09:16 DC 06/24/24 15:51 33.33 MLS/HR Amiodarone HCl 540 mg/Dextrose 300 ml @ 0 mls/hr PROTOCOL IV 06/24/24 21:00 07/24/24 20:59 06/24/24 20:42 16.7 MLS/HR Amlodipine Besylate (NorvASC 5MG TAB) 5 mg BID PO 06/22/24 09:00 07/22/24 08:59 06/30/24 11:10 5 MG Apixaban (EliquIS) 5 mg BID PO 06/24/24 14:30 07/24/24 14:29 06/30/24 11:10 5 MG Calcium Carbonate (Tums 500 Mg Chew Tab) 500 tab ONCE PO 06/26/24 15:30 07/26/24 15:29 Cancel Calcium Carbonate (Tums 500 Mg Chew Tab) 500 tab Q6H6 PRN PO GI UPSET/UPSET STOMACH 06/28/24 12:00 07/28/24 11:59 06/28/24 21:10 1 TAB Calcium Gluconate (Calcium Gluc 1gm Vial) 1 gm AD STAT IV 06/17/24 04:05 06/17/24 04:12 DC 06/17/24 04:21 1 GM Cefepime HCl (MAXipime 1 GM vial) 0.25 gm Q24H IVPB 06/17/24 04:00 06/18/24 04:06 DC 06/17/24 04:58 0.25 GM Cefepime HCl (MAXipime 1 GM vial) 1 gm Q24H IVPB 06/20/24 05:00 06/22/24 16:09 DC 06/22/24 03:12 1 GM Cefepime HCl 0.25 gm/Sodium Chloride 50 ml @ 100 mls/hr Q24H IVPB 06/18/24 04:30 06/19/24 10:58 DC 06/19/24 05:26 100 MLS/HR Dextrose (D50w) 50 ml AD PRN IV HYPOGLYCEMIA PROTOCOL 06/17/24 01:00 06/17/24 01:01 DC Dextrose (D50w) 50 ml AD PRN IV HYPOGLYCEMIA PROTOCOL 06/17/24 01:00 07/17/24 00:59 Dextrose (D50w) 50 ml ONCE STAT IV 06/17/24 04:05 06/17/24 04:12 DC 06/17/24 04:21 50 ML Epoetin Rylan-epbx (Retacrit) 10,000 unit [id number] SQ 06/24/24 14:00 06/24/24 13:53 DC Epoetin Rylan-epbx (Retacrit) 10,000 unit QMOWEFR@1600 SQ 06/29/24 15:00 07/29/24 14:59 06/29/24 15:21 10,000 UNIT Epoetin Rylan-epbx (Retacrit) 10,000 unit QWEEK SQ 06/24/24 14:00 06/29/24 14:23 DC 06/24/24 14:37 10,000 UNIT Famotidine (Pepcid 20mg Vial) 20 mg Q48H IV 06/17/24 01:00 07/17/24 00:59 06/29/24 00:57 20 MG Folic Acid (FOLic ACID 1 MG TABLET) 1 mg DAILY PO 06/25/24 09:00 07/25/24 08:59 06/30/24 11:08 1 MG Furosemide (LASix 40MG VIAL) 40 mg Q12H IV 06/28/24 21:00 07/28/24 20:59 06/30/24 11:09 40 MG Furosemide (LASix 40MG VIAL) 40 mg Q8H IV 06/19/24 18:30 06/20/24 18:31 DC 06/20/24 18:54 40 MG Glucagon (Glucagon 1mg Kit) 1 mg AD PRN IM HYPOGLYCEMIA PROTOCOL 06/17/24 01:00 06/17/24 01:01 DC Glucagon (Glucagon 1mg Kit) 1 mg AD PRN IM HYPOGLYCEMIA PROTOCOL 06/17/24 01:00 07/17/24 00:59 Hydralazine HCl ([id number] TAB) 25 mg TID PO 06/22/24 09:00 07/22/24 08:59 06/30/24 11:08 25 MG Hydrocortisone Sodium Succinate (Solu-corTEF 100MG) 50 mg ONCE@1930 IV 06/22/24 19:30 06/22/24 22:30 DC 06/22/24 19:59 50 MG Hydrocortisone Sodium Succinate (Solu-corTEF 100MG) 50 mg Q8H IV 06/18/24 11:30 06/22/24 15:46 DC 06/22/24 03:12 50 MG Hydrocortisone Sodium Succinate (Solu-corTEF 100MG) 50 mg Q8H6 IV 06/23/24 06:00 07/23/24 05:59 06/30/24 08:40 50 MG Hydromorphone HCl (DiLAUDid 0.5MG INJ) 0.5 mg Q4H PRN IVP SEVERE PAIN (7-10) 06/20/24 13:00 06/25/24 12:59 DC 06/21/24 23:50 0.5 MG Insulin Human Regular (humuLIN R 100 UNIT/ML 3ML) 10 unit ONCE STAT IV 06/17/24 04:05 06/17/24 04:12 DC 06/17/24 04:28 10 UNIT Insulin Human Regular (humuLIN R 100 UNIT/ML 3ML) INSULIN SLIDING SCAL... ACHS SQ 06/17/24 07:30 07/17/24 07:29 06/30/24 08:40 2 UNIT Lactated Ringer's 1,000 ml @ 130 mls/hr Q7H42M IV 06/21/24 09:30 06/28/24 09:51 DC 06/28/24 09:03 130 MLS/HR Lactobacillus Rhamnosus ([facility] Zocere & Plei) 1 each BID PO 06/28/24 10:00 07/28/24 09:59 06/30/24 11:09 1 EACH Leptospermum Honey (Medihoney) 1 appl DAILY TP 06/19/24 09:00 07/19/24 08:59 06/29/24 09:48 1 APPL Magnesium Sulfate 50 ml @ 0 mls/hr PROTOCOL PRN IV MAGNESIUM PROTOCOL 06/23/24 11:30 07/23/24 11:29 06/29/24 15:22 25 MLS/HR Metoprolol Tartrate (loprESSOR) 25 mg BID PO 06/24/24 14:30 07/24/24 14:29 06/30/24 11:10 25 MG Metronidazole/ Sodium Chloride (flaGYL) 500 mg Q8H IV 06/17/24 05:00 06/27/24 04:59 DC 06/26/24 21:48 500 MG Micafungin Sodium 100 ml @ 100 mls/hr Q24H IV 06/18/24 00:00 07/18/24 00:00 06/28/24 23:30 100 MLS/HR Morphine Sulfate (morPHINE 2MG SYG) 2 mg Q4H PRN IVP SEVERE PAIN (7-10) 06/29/24 00:30 07/06/24 00:29 Norepinephrine 250 ml @ 0 mls/hr PROTOCOL IV 06/16/24 22:00 06/22/24 07:20 DC 06/17/24 05:33 24.5 MLS/HR Ondansetron HCl (zoFRAN 4MG INJ) 4 mg Q6H PRN IVP NAUSEA/VOMITING 06/23/24 20:30 07/23/24 20:29 06/28/24 12:13 4 MG Pharmacy Profile Note (Lace Assessment) 1 each AD MISC 06/19/24 15:30 06/20/24 12:49 DC Pharmacy Profile Note (Pharmacy Communication) 1 each ONCE MISC 06/17/24 23:00 06/19/24 07:13 DC 06/17/24 23:31 1 EACH Pharmacy Profile Note (Pharmacy Communication) 1 each ONCE MISC 06/22/24 16:30 06/23/24 07:22 DC Phenylephrine HCl 100 mg/Sodium Chloride 250 ml @ 0 mls/hr AD PRN IV TITRATE 06/17/24 10:30 06/22/24 07:20 DC 06/18/24 05:48 27 MLS/HR Piperacillin Sod/ Tazobactam Sod (Zosyn 3.375gm+NS 50ml) 3.375 gm Q12H IV 06/16/24 21:30 06/17/24 01:03 DC 06/16/24 21:42 3.375 GM Piperacillin Sod/ Tazobactam Sod (Zosyn 3.375gm+NS 50ml) 3.375 gm Q12H IVPB 06/17/24 01:00 06/17/24 04:00 DC 06/17/24 02:54 3.375 GM Potassium Chloride 100 ml @ 100 mls/hr AD PRN IV POTASSIUM PROTOCOL 06/21/24 08:00 07/21/24 07:59 06/24/24 05:57 100 MLS/HR Potassium Chloride 100 ml @ 100 mls/hr AD PRN IV POTASSIUM PROTOCOL 06/23/24 11:30 07/23/24 11:29 Potassium Chloride (K-Dur/Klor-Con 20meq) 20 meq AD PRN PO POTASSIUM PROTOCOL 06/23/24 11:30 07/23/24 11:29 06/29/24 15:19 20 MEQ Potassium Chloride (K-Dur/Klor-Con 20meq) 40 meq BID PO 06/22/24 09:00 06/22/24 21:01 DC 06/22/24 19:54 40 MEQ Potassium Chloride (K-Dur/Klor-Con 20meq) 40 meq BID PO 06/25/24 09:00 06/28/24 09:51 DC 06/27/24 09:23 40 MEQ Potassium Chloride (KCl 10% Elixir 20meq/15ml) 20 meq AD PRN PO POTASSIUM PROTOCOL 06/23/24 11:30 07/23/24 11:29 Sodium Bicarbonate / Dextrose 1,000 ml @ 0 mls/hr Q0M IVP 06/17/24 05:00 4/16/25 04:58 DC Sodium Bicarbonate 150 meq/Dextrose 1,150 ml @ 50 mls/hr Q23H IVP 06/18/24 08:00 06/19/24 12:24 DC 06/18/24 20:23 100 MLS/HR Sodium Bicarbonate 150 meq/Dextrose 1,150 ml @ 100 mls/hr [id number] IVP 06/17/24 05:00 06/18/24 04:44 DC 06/17/24 21:00 100 MLS/HR Sodium Polystyrene Sulfonate (kayEXALate 15 GM/60 ML) 15 gm Q2H PO 06/16/24 21:30 06/16/24 23:31 DC 06/16/24 22:21 15 GM Sodium Chloride 1,000 ml @ 150 mls/hr Q6H40M IV 06/16/24 23:00 06/17/24 09:10 DC 06/17/24 05:15 150 MLS/HR Sodium Chloride (NS 50ml) 50 ml AD IV 06/17/24 01:00 06/17/24 01:05 DC Sucralfate (Carafate) 1 gm BID PO 06/28/24 12:30 06/28/24 22:30 DC 06/28/24 20:56 1 GM Thiamine HCl (Vitamin B-1) 100 mg DAILY IVP 06/17/24 09:00 07/17/24 08:59 06/30/24 11:09 100 MG Tigecycline 100 mg/Sodium Chloride 100 ml @ 200 mls/hr ONCE IV 06/22/24 16:30 06/23/24 07:21 DC 06/22/24 18:51 200 MLS/HR Tigecycline 50 mg/ Sodium Chloride 100 ml @ 200 mls/hr BID@0600,1800 IV 06/23/24 06:00 06/30/24 05:59 DC 06/29/24 17:57 200 MLS/HR Vancomycin HCl (Vancomycin 750mg) 750 mg Q96H IVPB 06/20/24 22:00 06/17/24 14:00 DC Vancomycin HCl (Vancomycin Protocol) 1 each AD IV 06/17/24 01:30 06/17/24 14:01 DC Vitamin B Complex/ Vit C/Folic Acid (Nephrovite Tablet) 1 cap DAILY PO 06/24/24 09:00 07/24/24 08:59 06/30/24 11:10 1 CAP Wound Care/ Dressing Products (Venelex Ointment) 1 APPL BID TP 06/28/24 21:00 07/28/24 20:59 06/29/24 23:14 1 GM Diagnostics / Radiology: [COPY/PASTE HERE IF NO REPORTS PLEASE DELETE SECTION] Assessment: Gastritis Acute blood loss anemia HTN DM Plan: Patient defers Colonoscopy Continue GI prophylaxis Advance diet as tolerated Avoid NSAIDs Antireflux measures Monitor H&H and transfuse as needed Call with questions, concerns or change in clinical status Patient to follow-up at clinic post discharge Thank you for this consult ANGEL BURDEN [employer] Jun 30, 2024 12:02
[2024-06-30] MEDS ORDERED: PHARMACY COMMUNICATION MISC SCH ×2 (12:30→14:30)
--- NOTE | 2024-06-30 13:47 | PN ---
69-year-old male with past medical history of diabetes mellitus type 2, hypertension, ESRD (baseline Cr ~2.3, now up to 7.2�9.9, GFR ~5�8), osteomyelitis with history of multiple toe amputations, recent septic shock (now off vasopressors), and ongoing broad-spectrum antibiotic therapy. Patient is a poor historian and resides in a nursing facility. Per family, he was doing relatively well until ~1 week ago when he had decreased oral intake and developed progressive lethargy. He had a recent COVID infection three weeks ago, now resolved. He presented with acute encephalopathy, hyperkalemia, metabolic acidosis, and severe thrombocytopenia (initially 32K, now improving to 78K). Notable labs include chronic normocytic anemia (Hgb trending 6.1�9.0), thrombocytopenia (platelets aren 28K, now 78K), and pancytopenia picture. Peripheral smear shows hypochromia, rouleaux formation, hypersegmented neutrophils, no schistocytes or helmet cells. Reticulocyte count is low (0.18%), immature reticulocytes elevated (2%). Iron saturation is high (79.7%), with low TIBC (94), suggesting anemia of chronic disease or myelodysplasia. Platelet count today is 399K PHYSICAL EXAM GENERAL: No acute respiratory distress. VITAL SIGNS: Reviewed and stable. HEENT: The sclerae are clear. The pupils are equal and reactive to light. The oropharyngeal cavity is within normal limits. NECK: Supple without lymphadenopathy. CHEST: Lung is clear bilaterally there is no wheezing or crackles. HEART: Sounds are regular and rhythmic. ABDOMEN: No guarding or rigidity. Bowel sounds positive. NEUROLOGICAL: The patient is alert and oriented. No focal deficits. Patient with generalized weakness. LYMPH NODES: There is no lymphadenopathy could be felt in the neck, supraclavicular, or axillary. IMPRESSION 1. Normocytic normochromic anemia. Hemoglobin level 9.5 g/deciliter 2. Acute on chronic renal failure. Patient was evaluated by nephrology and there is plan for hemodialysis to be done. 3. Thrombocytopenia. Platelet count 399K 4. History of hypertension 5. Diabetes mellitus 6. Lower extremity osteomyelitis Plan 1. Peripheral blood smear showed rouleaux phenomena. SPEP and free light chain was ordered. If there is monoclonal protein we will do bone marrow biopsy. 2. Continue care as per nephrology. It seems there is no plan for hemodialysis at this time. 3. No need for blood product transfusion 4. Colonoscopy actually was done on this patient. Will follow-up with the result 5. There is plan for hemodialysis to be done for this patient. So this patient could receive his appropriate and iron study during hemodialysis. Vitals/Labs Vital Signs Date Time Temp Pulse Resp B/P (MAP) Pulse Ox O2 Delivery O2 Flow Rate FiO2 06/30/24 11:54 98.2 80 16 133/64 98 Nasal Cannula 2.0 06/29/24 08:00 28 Laboratory Tests 06/30/24 09:16 Medications Current Medications Sodium Chloride 1,000 ml @ 0 mls/hr ONCE ONCE IV Last administered on 06/16/24at 21:22; Start 06/16/24 at 21:30; Stop 06/16/24 at 21:31; Status DC Piperacillin Sod/ Tazobactam Sod 3.375 gm Q12H IV Last administered on 06/16/24at 21:42; Start 06/16/24 at 21:30; Stop 06/17/24 at 01:03; Status DC Vancomycin HCl 1 gm ONCE ONCE IV; Start 06/16/24 at 21:30; Stop 06/16/24 at 21:34; Status DC Enoxaparin Sodium 80 mg ONCE ONCE SQ Last administered on 06/16/24at 23:15; Start 06/16/24 at 21:30; Stop 06/16/24 at 21:46; Status DC Calcium Gluconate 1 gm/Sodium Chloride 110 ml @ 110 mls/hr ONCE ONCE IV Last administered on 06/16/24at 22:03; Start 06/16/24 at 21:30; Stop 06/16/24 at 22:29; Status DC Albuterol Sulfate 10 mg ONCE ONCE IH Last administered on 06/16/24at 21:53; Start 06/16/24 at 21:30; Stop 06/16/24 at 21:35; Status DC Sodium Polystyrene Sulfonate 15 gm Q2H PO Last administered on 06/16/24at 22:21; Start 06/16/24 at 21:30; Stop 06/16/24 at 23:31; Status DC Albuterol Sulfate 2.5 mg STK-MED ONCE IH; Start 06/16/24 at 21:34; Stop 06/16/24 at 21:34; Status DC Norepinephrine 250 ml @ 0 mls/hr PROTOCOL IV Last administered on 06/17/24at 05:33; Start 06/16/24 at 22:00; Stop 06/22/24 at 07:20; Status DC Vancomycin HCl 250 ml @ 125 mls/hr ONCE ONCE IV Last administered on 06/16/24at 22:21; Start 06/16/24 at 22:00; Stop 06/16/24 at 23:59; Status DC Sodium Zirconium Cyclosilicate 10 gm ONCE ONCE PO Last administered on 06/16/24at 23:13; Start 06/16/24 at 23:00; Stop 06/16/24 at 23:04; Status DC Sodium Chloride 1,000 ml @ 150 mls/hr Q6H40M IV Last administered on 06/17/24at 05:15; Start 06/16/24 at 23:00; Stop 06/17/24 at 09:10; Status DC Thiamine HCl 100 mg DAILY IVP Last administered on 06/30/24at 11:09; Start 06/17/24 at 09:00; Stop 07/17/24 at 08:59 Famotidine 20 mg Q48H IV Last administered on 06/29/24at 00:57; Start 06/17/24 at 01:00; Stop 07/17/24 at 00:59 Insulin Human Regular INSULIN SLIDING SCAL... ACHS SQ Last administered on 06/30/24at 08:40; Start 06/17/24 at 07:30; Stop 07/17/24 at 07:29 Dextrose 50 ml AD PRN IV; Start 06/17/24 at 01:00; Stop 07/17/24 at 00:59 Glucagon 1 mg AD PRN IM; Start 06/17/24 at 01:00; Stop 06/17/24 at 01:01; Status DC Piperacillin Sod/ Tazobactam Sod 3.375 gm Q12H IVPB Last administered on 06/17/24at 02:54; Start 06/17/24 at 01:00; Stop 06/17/24 at 04:00; Status DC Sodium Chloride 50 ml AD IV; Start 06/17/24 at 01:00; Stop 06/17/24 at 01:05; Status DC Vancomycin HCl 1.5 gm ONCE ONCE IV; Start 06/17/24 at 01:00; Stop 06/17/24 at 01:27; Status DC Dextrose 50 ml AD PRN IV; Start 06/17/24 at 01:00; Stop 06/17/24 at 01:01; Status DC Glucagon 1 mg AD PRN IM; Start 06/17/24 at 01:00; Stop 07/17/24 at 00:59 Vancomycin HCl 1 each AD IV; Start 06/17/24 at 01:30; Stop 06/17/24 at 14:01; Status DC Vancomycin HCl 750 mg Q96H IVPB; Start 06/20/24 at 22:00; Stop 06/17/24 at 14:00; Status DC Sodium Chloride 1,368 ml @ 456 mls/hr ONCE ONCE IV Last administered on 06/17/24at 02:55; Start 06/17/24 at 02:00; Stop 06/17/24 at 04:59; Status DC Sodium Bicarbonate 100 meq ONCE ONCE IV Last administered on 06/17/24at 02:54; Start 06/17/24 at 02:00; Stop 06/17/24 at 02:02; Status DC Cefepime HCl 0.25 gm Q24H IVPB Last administered on 06/17/24at 04:58; Start 06/17/24 at 04:00; Stop 06/18/24 at 04:06; Status DC Insulin Human Regular 10 unit ONCE STAT IV Last administered on 06/17/24at 04:28; Start 06/17/24 at 04:05; Stop 06/17/24 at 04:12; Status DC Dextrose 50 ml ONCE STAT IV Last administered on 06/17/24at 04:21; Start 06/17/24 at 04:05; Stop 06/17/24 at 04:12; Status DC Calcium Gluconate 1 gm AD STAT IV Last administered on 06/17/24at 04:21; Start 06/17/24 at 04:05; Stop 06/17/24 at 04:12; Status DC Albuterol Sulfate 10 mg ONCE STAT IH Last administered on 06/17/24at 04:31; Start 06/17/24 at 04:05; Stop 06/17/24 at 04:12; Status DC Metronidazole/ Sodium Chloride 500 mg Q8H IV Last administered on 06/26/24at 21:48; Start 06/17/24 at 05:00; Stop 06/27/24 at 04:59; Status DC Sodium Bicarbonate 50 meq ONCE ONCE IV Last administered on 06/17/24at 04:58; Start 06/17/24 at 05:00; Stop 06/17/24 at 05:01; Status DC Sodium Bicarbonate / Dextrose 1,000 ml @ 0 mls/hr Q0M IVP; Start 06/17/24 at 05:00; Stop 06/17/24 at 04:58; Status DC Sodium Bicarbonate 150 meq/Dextrose 1,150 ml @ 100 mls/hr [id number] IVP Last administered on 06/17/24at 21:00; Start 06/17/24 at 05:00; Stop 06/18/24 at 04:44; Status DC Sodium Bicarbonate 100 meq ONCE ONCE IV Last administered on 06/17/24at 10:19; Start 06/17/24 at 10:00; Stop 06/17/24 at 10:01; Status DC Phenylephrine HCl 100 mg/Sodium Chloride 250 ml @ 0 mls/hr AD PRN IV Last administered on 06/18/24at 05:48; Start 06/17/24 at 10:30; Stop 06/22/24 at 07:20; Status DC Magnesium Sulfate 50 ml @ As Directed STK-MED ONCE IV Last administered on 06/17/24at 16:03; Start 06/17/24 at 15:59; Stop 06/17/24 at 16:00; Status DC Pharmacy Profile Note 1 each ONCE MISC Last administered on 06/17/24at 23:31; Start 06/17/24 at 23:00; Stop 06/19/24 at 07:13; Status DC Micafungin Sodium 100 ml @ 100 mls/hr Q24H IV Last administered on 06/28/24at 23:30; Start 06/18/24 at 00:00; Stop 07/18/24 at 00:00 Cefepime HCl 0.25 gm/Sodium Chloride 50 ml @ 100 mls/hr Q24H IVPB Last administered on 06/19/24at 05:26; Start 06/18/24 at 04:30; Stop 06/19/24 at 10:58; Status DC Sodium Bicarbonate 150 meq/Dextrose 1,150 ml @ 50 mls/hr Q23H IVP Last administered on 06/18/24at 20:23; Start 06/18/24 at 08:00; Stop 06/19/24 at 12:24; Status DC Hydrocortisone Sodium Succinate 50 mg Q8H IV Last administered on 06/22/24at 03:12; Start 06/18/24 at 11:30; Stop 06/22/24 at 15:46; Status DC Leptospermum Honey 1 appl DAILY TP Last administered on 06/29/24at 09:48; Start 06/19/24 at 09:00; Stop 07/19/24 at 08:59 Furosemide 40 mg ONCE ONCE IV Last administered on 06/18/24at 21:50; Start 06/18/24 at 20:30; Stop 06/18/24 at 20:34; Status DC Cefepime HCl 1 gm Q24H IVPB Last administered on 06/22/24at 03:12; Start 06/20/24 at 05:00; Stop 06/22/24 at 16:09; Status DC Furosemide 60 mg ONCE ONCE IV Last administered on 06/19/24at 11:55; Start 06/19/24 at 11:30; Stop 06/19/24 at 11:31; Status DC Potassium Chloride 100 ml @ 50 mls/hr ONCE ONCE IV Last administered on 06/19/24at 13:56; Start 06/19/24 at 12:30; Stop 06/19/24 at 14:29; Status DC Epoetin Rylan-epbx 10,000 unit ONCE ONCE SQ Last administered on 06/19/24at 16:45; Start 06/19/24 at 16:00; Stop 06/19/24 at 16:01; Status DC Pharmacy Profile Note 1 each AD MISC; Start 06/19/24 at 15:30; Stop 06/20/24 at 12:49; Status DC Furosemide 40 mg Q8H IV Last administered on 06/20/24at 18:54; Start 06/19/24 at 18:30; Stop 06/20/24 at 18:31; Status DC Potassium Chloride 100 ml @ As Directed STK-MED ONCE IV Last administered on 06/20/24at 12:17; Start 06/20/24 at 12:11; Stop 06/20/24 at 12:11; Status DC Hydromorphone HCl 0.5 mg Q4H PRN IVP Last administered on 06/21/24at 23:50; Start 06/20/24 at 13:00; Stop 06/25/24 at 12:59; Status DC Hydromorphone HCl 0.5 mg STK-MED ONCE .ROUTE; Start 06/20/24 at 12:48; Stop 06/20/24 at 12:52; Status DC Potassium Chloride 100 ml @ 100 mls/hr AD PRN IV Last administered on 06/24/24at 05:57; Start 06/21/24 at 08:00; Stop 07/21/24 at 07:59 Lactated Ringer's 1,000 ml @ 130 mls/hr Q7H42M IV Last administered on 06/28/24at 09:03; Start 06/21/24 at 09:30; Stop 06/28/24 at 09:51; Status DC Amlodipine Besylate 5 mg BID PO Last administered on 06/30/24at 11:10; Start 06/22/24 at 09:00; Stop 07/22/24 at 08:59 Hydralazine HCl 25 mg TID PO Last administered on 06/30/24at 11:08; Start 06/22/24 at 09:00; Stop 07/22/24 at 08:59 Potassium Chloride 40 meq BID PO Last administered on 06/22/24at 19:54; Start 06/22/24 at 09:00; Stop 06/22/24 at 21:01; Status DC Hydrocortisone Sodium Succinate 50 mg Q8H6 IV Last administered on 06/30/24at 08:40; Start 06/23/24 at 06:00; Stop 07/23/24 at 05:59 Hydrocortisone Sodium Succinate 50 mg ONCE@1930 IV Last administered on 06/22/24at 19:59; Start 06/22/24 at 19:30; Stop 06/22/24 at 22:30; Status DC Pharmacy Profile Note 1 each ONCE MISC; Start 06/22/24 at 16:30; Stop 06/23/24 at 07:22; Status DC Tigecycline 100 mg/Sodium Chloride 100 ml @ 200 mls/hr ONCE IV Last administered on 06/22/24at 18:51; Start 06/22/24 at 16:30; Stop 06/23/24 at 07:21; Status DC Tigecycline 50 mg/ Sodium Chloride 100 ml @ 200 mls/hr BID@0600,1800 IV Last administered on 06/29/24at 17:57; Start 06/23/24 at 06:00; Stop 06/30/24 at 05:59; Status DC Propofol 200 mg STK-MED ONCE IV; Start 06/23/24 at 10:49; Stop 06/23/24 at 10:49; Status DC Propofol 200 mg STK-MED ONCE IV; Start 06/23/24 at 10:49; Stop 06/23/24 at 10:49; Status DC Magnesium Sulfate 50 ml @ 0 mls/hr PROTOCOL PRN IV Last administered on 06/29/24at 15:22; Start 06/23/24 at 11:30; Stop 07/23/24 at 11:29 Potassium Chloride 100 ml @ 100 mls/hr AD PRN IV; Start 06/23/24 at 11:30; Stop 07/23/24 at 11:29 Potassium Chloride 20 meq AD PRN PO; Start 06/23/24 at 11:30; Stop 07/23/24 at 11:29 Potassium Chloride 20 meq AD PRN PO Last administered on 06/29/24at 15:19; Start 06/23/24 at 11:30; Stop 07/23/24 at 11:29 Polyethylene Glycol/ Electrolytes 4,000 ml ONCE ONCE PO Last administered on 06/23/24at 12:55; Start 06/23/24 at 14:00; Stop 06/23/24 at 14:01; Status DC Vitamin B Complex/ Vit C/Folic Acid 1 cap DAILY PO Last administered on 06/30/24at 11:10; Start 06/24/24 at 09:00; Stop 07/24/24 at 08:59 Ondansetron HCl 4 mg Q6H PRN IVP Last administered on 06/28/24at 12:13; Start 06/23/24 at 20:30; Stop 07/23/24 at 20:29 Metoprolol Tartrate 5 mg ONCE ONCE IV Last administered on 06/24/24at 09:36; Start 06/24/24 at 09:30; Stop 06/24/24 at 09:31; Status DC Folic Acid 1 mg DAILY PO Last administered on 06/30/24at 11:08; Start 06/25/24 at 09:00; Stop 07/25/24 at 08:59 Epoetin Rylan-epbx 10,000 unit [id number] SQ; Start 06/24/24 at 14:00; Stop 06/24/24 at 13:53; Status DC Epoetin Rylan-epbx 10,000 unit QWEEK SQ Last administered on 06/24/24at 14:37; Start 06/24/24 at 14:00; Stop 06/29/24 at 14:23; Status DC Amiodarone HCl 360 mg/Dextrose 200 ml @ 0 mls/hr PROTOCOL IV Last administered on 06/24/24at 15:51; Start 06/24/24 at 14:30; Stop 06/25/24 at 09:16; Status DC Amiodarone HCl 540 mg/Dextrose 300 ml @ 0 mls/hr PROTOCOL IV Last administered on 06/24/24at 20:42; Start 06/24/24 at 21:00; Stop 07/24/24 at 20:59 Apixaban 5 mg BID PO Last administered on 06/30/24at 11:10; Start 06/24/24 at 14:30; Stop 07/24/24 at 14:29 Metoprolol Tartrate 25 mg BID PO Last administered on 06/30/24at 11:10; Start 06/24/24 at 14:30; Stop 07/24/24 at 14:29 Amiodarone HCL/ Dextrose 100 ml @ 0 mls/hr ONCE ONCE IV Last administered on 06/24/24at 15:34; Start 06/24/24 at 16:00; Stop 06/24/24 at 16:01; Status DC Potassium Chloride 40 meq BID PO Last administered on 06/27/24at 09:23; Start 06/25/24 at 09:00; Stop 06/28/24 at 09:51; Status DC Calcium Carbonate 500 tab ONCE PO; Start 06/26/24 at 15:30; Stop 07/26/24 at 15:29; Status Cancel Calcium Carbonate 1 tab ONCE ONCE PO; Start 06/26/24 at 16:00; Stop 06/26/24 at 16:01; Status Cancel Calcium Carbonate 1 tab ONCE ONCE PO Last administered on 06/26/24at 17:05; Start 06/26/24 at 16:00; Stop 06/26/24 at 16:01; Status DC Furosemide 40 mg ONCE ONCE IV Last administered on 06/28/24at 10:21; Start 06/28/24 at 10:00; Stop 06/28/24 at 10:15; Status DC Wound Care/ Dressing Products 1 APPL BID TP Last administered on 06/29/24at 23:14; Start 06/28/24 at 21:00; Stop 07/28/24 at 20:59 Lactobacillus Rhamnosus 1 each BID PO Last administered on 06/30/24at 11:09; Start 06/28/24 at 10:00; Stop 07/28/24 at 09:59 Furosemide 40 mg Q12H IV Last administered on 06/30/24at 11:09; Start 06/28/24 at 21:00; Stop 07/28/24 at 20:59 Calcium Carbonate 500 tab Q6H6 PRN PO Last administered on 06/30/24at 12:32; Start 06/28/24 at 12:00; Stop 07/28/24 at 11:59 Sucralfate 1 gm BID PO Last administered on 06/28/24at 20:56; Start 06/28/24 at 12:30; Stop 06/28/24 at 22:30; Status DC Morphine Sulfate 2 mg Q4H PRN IVP; Start 06/29/24 at 00:30; Stop 07/06/24 at 00:29 Epoetin Rylan-epbx 10,000 unit QMOWEFR@1600 SQ Last administered on 06/29/24at 15:21; Start 06/29/24 at 15:00; Stop 07/29/24 at 14:59 Pharmacy Profile Note 1 each ONCE MISC; Start 06/30/24 at 12:30; Stop 06/30/24 at 12:08; Status DC Tigecycline 50 mg/ Sodium Chloride 100 ml @ 200 mls/hr BID@0600,1800 IV; Start 06/30/24 at 18:00; Stop 07/10/24 at 17:59 TOYA MANSFIELD MD Jun 30, 2024 13:47
[2024-06-30 15:51] LABS: HEMATOCRIT 28.2 % (42-54)
[2024-06-30 16:06] LABS: HEMOGLOBIN A1C 7.4 % (4.0-6.0)
[2024-06-30 16:25] LABS: % IRON SATURATION 42.6 % (30-44)
--- NOTE | 2024-06-30 16:32 | HMCIMG ---
CHEST 1VW HISTORY: Dialysis COMPARISON: 06/29/2024 FINDINGS: A frontal projection of the chest was obtained. Mild bilateral pulmonary infiltrates are seen may be related to mild pulmonary vascular congestion with possible superimposed pneumonitis. The heart is borderline enlarged. All the lines and tubes are again seen in place. No evidence of aortic calcification is seen. IMPRESSION: 1. Mild bilateral pulmonary infiltrates are seen may be related to mild pulmonary vascular congestion with possible superimposed pneumonitis.
[2024-06-30 16:36] LABS: ALBUMIN 2.3 g/dL (3.5-5.0); CREATININE 6.2 mg/dL (0.5-1.3)
--- NOTE | 2024-06-30 17:53 | PN ---
[facility] PROGRESS NOTE Date of Service: Jun 30, 2024 Time of Service: 17:49 SUBJECTIVE: Patient is seen and examined at bedside, case discussed with the RN, during my visit the patient resting comfortably in bed, following simple commands, he is on blood pressure support with Levophed, getting sodium bicarbonate IV. BP 108/57, heart rate of 116, saturating 99% on 2 L nasal cannula. Hemoglobin 8.4, hematocrit 27.0, WBC 14.2, platelet count of 28. Sodium 143, potassium 5.0, bicarb of five, BUN 107, creatinine 9.7. ABG with pH of 7.8, pCO2 less than 15, bicarb of 2.3. 06/18 patient has been seen and examined at bedside, case discussed with the RN, patient remains confused, still on pressor support with Levophed and Andrew- Synephrine, patient also on sodium bicarbonate drip. No family members at bedside during my visit. Blood pressure 112/44, heart rate of 91, saturating 93%. CBC with WBC of 16.4, hemoglobin 8.2, hematocrit 23.7, platelet count of 27. Sodium 145, potassium 3.7, BUN of 102, creatinine 10.2, sodium bicarb of 12. ABG with pH of 7.33, pCO2 31, PO2 64, bicarb of 16.1. Septic workup reviewed, blood cultures no growth after 24 hours. Patient getting broad- spectrum IV antibiotics during my visit. CT of the abdomen pelvis probable mild enterocolitis with mild to moderate small and large bowel liquid content, cholelithiasis, urinary wall thickening, more than expected for empty urinary bladder. Mild distal colonic diverticulosis. 06/19 patient is seen and examined at bedside, case discussed with the RN, no acute events overnight, patient is still confused, however less compared to time of admission. Following very simple commands. He is currently off vasopressors. Replace, output since this morning 500 cc. Blood pressure 111/78, afebrile, saturating 96-98% 2 L nasal cannula. WBC trending down at 11.2, hemoglobin 7.6, hematocrit 20.9, platelet count of 14. BUN 108, creatini ne 10.2. ABG shows a pH 7.41, pCO2 37, PO2 81.5, bicarb 23.1. Blood culture showing Alicia tropicalis. Patient has been started on micafungin. Continue antibiotics. Continue critical care input and recommendation, continue Nephrology input and recommendation in terms of renal replacement therapy, continue daily weight, monitor intake and output. Follow anemia workup, stool o ccult blood, serial CBC transfuse 1 unit of PRBC hemoglobin less than seven, we will request Hematology consultation as well. 06/20 patient seen at bedside, no acute events overnight. He is not requiring pressors he is afebrile, hemodynamically stable saturating well on 2 L nasal cannula. Hemoglobin was 6.1 and platelets low at night, we will be transfused with packed red blood cells and platelets per critical Care, we will follow up post transfusion. Potassium decreased from 3.4 down to 3.2, creatinine stable at 10.2, we will follow up with Nephrology for recommendations. Urine output is improving, he has been started on Lasix, we will follow up. Patient continues on micafungin. Pt reticulocyte count low at 0.18 suggesting decreased production of RBC, FOBT positive as well concerning for GI Bleed. Will consult hematology and GI and follow up 06/21 patient seen at bedside, no acute events overnight. He has been afebrile, hemodynamically stable saturating well on 2 L nasal cannula. He has been NPO h owever he has no history of volume overload, and his kidney function is decreased, we will perfuse his kidneys with some IV fluids and allow clear liquid diet. Creatinine stable at 9.9, same as yesterday, potassium decreased at 3.0, nephrology to manage potassium levels until renal function improves. Hemoglobin improved from 8.0 up to 8.7, remainder of his labs are relatively unr emarkable. 06/22 Pt seen at bedside, no acute events overnight. He has been downgraded from ICU. He has been afebrile, hemodynamically stable, saturating well on room air. Hgb stable at 8.6, similar to yesterday, platelets decreased from 102 down to 82, potassium low at 2.7, will be repleted according to protocol, creatinine improved from 9.9 down to 8.5, sodium improved from 150 down to 146, remainder of his labs are relatively unremarkable. Urine output adequate, approximately 2.3L output in the last 24 hours. On physical exam, no evidence of volume overflow, will continue with IV fluids to perfuse his kidneys. Left foot gr owing mullins-resistant organism, ID to adjust antibiotics 06/23 patient seen at bedside, no acute events overnight. He is pending EGD with GI today, we will follow up postprocedure. He has been afebrile, hemodynamically stable, mildly hypertensive with systolics in the 150s, saturating well on 3 L nasal cannula. Hemoglobin improved from 8.6 up to 9.0, platelets decreased from 82 down to 78, creatinine continues to improve from 8.5 down to 7.2 with adequate urine output. Potassium low at 3.1, we will be rep leted according to potassium protocol. Patient weak and feeble, we will likely need transitioned to snf facility, case management to assist with placement. He will continue daily physical therapy. 06/24 patient seen at bedside, no acute events overnight. EGD was done yesterday no evidence of bleed noted. Patient refusing colonoscopy. Hgb is uptrending from 9.0 up to 9.3 suggesting resolution of GI bleed, platelets improved from 78 up to 87, creatinine improved from 7.2 down to 6.4, potassium low at 3.4, will be repleted according to protocol. Patient will need placement for IV antibiotics 06/25 patient seen at bedside, no acute events overnight. Continues to refuse colonoscopy yesterday he went into AFib with RVR was started on IV amiodarone. He was rate controlled today, likely we will be transitioned to p.o. amiodarone. Now pending placement to continue IV antibiotic and antifungal therapy. We will follow up with case management and Cardiology. Creatinine improved from 6.4 down to 5.9, BUN still elevated at 112. Potassium low at 2.9 will be repleted according to protocol and will give an extra 80meq supplementation. 06/26 patient seen at bedside, no acute events overnight. He has been afebrile, hemodynamically stable saturating well on room air. WBC increased from 11.3 up to 13.1, hemoglobin stable at 9.7, same as yesterday, creatinine stable at 5.9, same as yesterday, BUN increased from 112 up to 117, remainder of his labs are relatively unremarkable. Proximally 1.1 L urine output in the last 24 hours. He is pending placement 06/27 Pt seen at bedside, no acute events overnight. He remains stable, vitals u nremarkable. Pending placement 06/28 patient seen at bedside, no acute events overnight. His urine output has been decreasing, his BUN is up trending and his creatinine stable at 5.9. Discuss with Nephrology and we will hold the IV fluids and start a short course of Lasix to see his response. If he does not improve he may end up needing renal replacement therapy. Remainder of his vitals and labs are unremarkable. 06/29 seen at bedside, no acute events overnight. He was started on Lasix yesterday, diuresed proximally 1.4 L and is -992 mL over the last 24 hours. He still appears fluid overloaded. BUN continues to uptrend, creatinine stable at 6.0, similar to yesterday. Continue to monitor renal function, if it continues to deteriorate or urine output decreases, he may need renal replacement therapy. 06/30 patient seen at bedside, no acute events overnight. Renal function cont inues to deteriorate, nephrology spoke with the patient about worsening renal function and the patient has agreed to transition to dialysis, will follow up with nephrology. REVIEW OF SYSTEMS 12 point review of systems negative unless noted in HPI PHYSICAL EXAM GENERAL APPEARANCE: The patient remains confused. Withdrawing to painful stimu lation. NEUROLOGICAL: Cranial nerves II-XII grossly intact. Motor is 5/5 in bilateral upper and lower extremities proximal to distal. No sensory deficits. HEENT: Face is symmetric. Pupils are equal and reactive. Extraocular movements are intact. NECK: Supple. No JVD. No thyromegaly. No submental, submandibular, pre- /postauricular, occipital or supraclavicular lymphadenopathy. CHEST: Normal chest expansion. No Telemetry. LUNGS: Absence of any rales, rhonchi or any wheezing. CARDIOVASCULAR: Regular. S1 and S2 normal. No appreciable rubs, murmurs or gallops. ABDOMEN: Soft, nontender, and nondistended. There is no rebound, voluntary guarding, or rigidity. : Deferred. No Gallagher. EXTREMITIES: Non-edematous and not cyanotic. No clubbing. Good capillary refill. SKIN: No skin breakdown. Vital Signs (last 8hr) Date Time Temp Pulse Resp B/P (MAP) Pulse Ox O2 Delivery O2 Flow Rate FiO2 06/30/24 16:00 97.9 79 16 127/69 100 Nasal Cannula 2.0 06/30/24 11:54 98.2 80 16 133/64 98 Nasal Cannula 2.0 LABS: Laboratory: Test 06/30/24 16:16 06/30/24 15:20 06/30/24 09:16 06/29/24 04:04 Range/Units Whole Blood Glucose 152 H 70-110 MG/DL Hemoglobin 9.8 L 14.0-18.0 g/dL Hematocrit 28.2 L 42-54 % Blood Urea Nitrogen 135 *H 7-18 mg/dL Creatinine 6.2 H 0.5-1.3 mg/dL Glomerular Filtration Rate Calc 9 >90 mL/min Hemoglobin A1c 7.4 H 4.0-6.0 % Estimated Average Glucose (eAG) 166 H 70-126 mg/dL Iron Level 32 #L 65-175 mcg/dL Total Iron Binding Capacity 75 L 250-450 mcg/dL Percent Iron Saturation 42.6 30-44 % Ferritin 424 H 30-400 ng/mL Albumin 2.3 L 3.5-5.0 g/dL Triglycerides Level 64 30-200 mg/dL Cholesterol Level 167 <200 mg/dL LDL Cholesterol 86 0-99 mg/dL HDL Cholesterol 33 29-71 mg/dL White Blood Count 10.2 4.8-10.8 K/uL Red Blood Count 3.41 L 4.50-6.20 MIL/uL Mean Corpuscular Volume 87.4 79-99 fL Mean Corpuscular Hemoglobin 30.2 27.0-33.0 pg Mean Corpuscular Hemoglobin Concent 34.6 32.0-36.0 g/dL Red Cell Distribution Width 16.2 H 11.0-15.5 % Platelet Count 399 130-400 K/uL Mean Platelet Volume 11.4 H 7.5-10.5 fL Immature Granulocyte % (Auto) 0.4 0-1 % Neutrophils (%) (Auto) 91.7 H 40.0-77.0 % Lymphocytes (%) (Auto) 3.2 L 21.0-51.0 % Monocytes (%) (Auto) 4.6 3.0-13.0 % Eosinophils (%) (Auto) 0.0 0.0-8.0 % Basophils (%) (Auto) 0.1 0.0-5.0 % Neutrophils # (Auto) 9.3 H 1.8-7.7 K/uL Lymphocytes # (Auto) 0.3 L 1.0-4.8 K/uL Monocytes # (Auto) 0.5 0.1-1.0 K/uL Eosinophils # (Auto) 0.00 0.00-0.70 K/uL Basophils # (Auto) 0.01 0.00-0.20 K/uL Absolute Immature Granulocyte (auto 0.04 0-1 K/uL Nucleated Red Blood Cells 0.0 0.0-0.19 % Sodium Level 135 L 136-145 mmol/L Potassium Level 3.4 L 3.5-5.1 mmol/L Chloride Level 95 L 101-111 mmol/L Carbon Dioxide Level 24 21-32 mmol/L Random Glucose 192 H 70-105 mg/dL Total Calcium 7.4 L 8.5-10.1 mg/dL Lactic Acid Level 1.6 0.8-2.5 mmol/L Phosphorus Level 8.3 H 2.5-4.9 mg/dL Magnesium Level 1.70 L 1.80-2.40 mg/dL Total Bilirubin 0.7 0.2-1.0 mg/dL Aspartate Amino Transf (AST/SGOT) 22 10-37 U/L Alanine Aminotransferase (ALT/SGPT) 15 12-78 U/L Alkaline Phosphatase 139 H 50-136 U/L B-Type Natriuretic Peptide 3180 H 0-100 pg/mL Total Protein 5.8 L 6.0-8.3 g/dL Procalcitonin 0.36 0.05-0.5 ng/mL Current Medications Medications (Trade) Dose Ordered Sig/Roderick Route PRN Reason Start Time Stop Time Status Last Admin Dose Admin Albuterol Sulfate (Proventil 0.083% 2.5mg/3ml) 10 mg ONCE STAT IH 06/17/24 04:05 06/17/24 04:12 DC 06/17/24 04:31 10 MG Amiodarone HCl 360 mg/Dextrose 200 ml @ 0 mls/hr PROTOCOL IV 06/24/24 14:30 06/25/24 09:16 DC 06/24/24 15:51 33.33 MLS/HR Amiodarone HCl 540 mg/Dextrose 300 ml @ 0 mls/hr PROTOCOL IV 06/24/24 21:00 07/24/24 20:59 06/24/24 20:42 16.7 MLS/HR Amlodipine Besylate (NorvASC 5MG TAB) 5 mg BID PO 06/22/24 09:00 07/22/24 08:59 06/30/24 11:10 5 MG Apixaban (EliquIS) 5 mg BID PO 06/24/24 14:30 07/24/24 14:29 Hold 06/30/24 11:10 5 MG Calcium Carbonate (Tums 500 Mg Chew Tab) 500 tab ONCE PO 06/26/24 15:30 07/26/24 15:29 Cancel Calcium Carbonate (Tums 500 Mg Chew Tab) 500 tab Q6H6 PRN PO GI UPSET/UPSET STOMACH 06/28/24 12:00 07/28/24 11:59 06/30/24 12:32 500 TAB Calcium Gluconate (Calcium Gluc 1gm Vial) 1 gm AD STAT IV 06/17/24 04:05 06/17/24 04:12 DC 06/17/24 04:21 1 GM Cefepime HCl (MAXipime 1 GM vial) 0.25 gm Q24H IVPB 06/17/24 04:00 06/18/24 04:06 DC 06/17/24 04:58 0.25 GM Cefepime HCl (MAXipime 1 GM vial) 1 gm Q24H IVPB 06/20/24 05:00 06/22/24 16:09 DC 06/22/24 03:12 1 GM Cefepime HCl 0.25 gm/Sodium Chloride 50 ml @ 100 mls/hr Q24H IVPB 06/18/24 04:30 06/19/24 10:58 DC 06/19/24 05:26 100 MLS/HR Dextrose (D50w) 50 ml AD PRN IV HYPOGLYCEMIA PROTOCOL 06/17/24 01:00 06/17/24 01:01 DC Dextrose (D50w) 50 ml AD PRN IV HYPOGLYCEMIA PROTOCOL 06/17/24 01:00 07/17/24 00:59 Dextrose (D50w) 50 ml ONCE STAT IV 06/17/24 04:05 06/17/24 04:12 DC 06/17/24 04:21 50 ML Epoetin Rylan-epbx (Retacrit) 10,000 unit [id number] SQ 06/24/24 14:00 06/24/24 13:53 DC Epoetin Rylan-epbx (Retacrit) 10,000 unit QMOWEFR@1600 SQ 06/29/24 15:00 07/29/24 14:59 06/29/24 15:21 10,000 UNIT Epoetin Rylan-epbx (Retacrit) 10,000 unit QWEEK SQ 06/24/24 14:00 06/29/24 14:23 DC 06/24/24 14:37 10,000 UNIT Famotidine (Pepcid 20mg Vial) 20 mg Q48H IV 06/17/24 01:00 07/17/24 00:59 06/29/24 00:57 20 MG Folic Acid (FOLic ACID 1 MG TABLET) 1 mg DAILY PO 06/25/24 09:00 07/25/24 08:59 06/30/24 11:08 1 MG Furosemide (LASix 40MG VIAL) 40 mg Q12H IV 06/28/24 21:00 07/28/24 20:59 06/30/24 11:09 40 MG Furosemide (LASix 40MG VIAL) 40 mg Q8H IV 06/19/24 18:30 06/20/24 18:31 DC 06/20/24 18:54 40 MG Glucagon (Glucagon 1mg Kit) 1 mg AD PRN IM HYPOGLYCEMIA PROTOCOL 06/17/24 01:00 06/17/24 01:01 DC Glucagon (Glucagon 1mg Kit) 1 mg AD PRN IM HYPOGLYCEMIA PROTOCOL 06/17/24 01:00 07/17/24 00:59 Hydralazine HCl ([id number] TAB) 25 mg TID PO 06/22/24 09:00 07/22/24 08:59 06/30/24 14:20 25 MG Hydrocortisone Sodium Succinate (Solu-corTEF 100MG) 50 mg ONCE@1930 IV 06/22/24 19:30 06/22/24 22:30 DC 06/22/24 19:59 50 MG Hydrocortisone Sodium Succinate (Solu-corTEF 100MG) 50 mg Q8H IV 06/18/24 11:30 06/22/24 15:46 DC 06/22/24 03:12 50 MG Hydrocortisone Sodium Succinate (Solu-corTEF 100MG) 50 mg Q8H6 IV 06/23/24 06:00 07/23/24 05:59 06/30/24 14:20 50 MG Hydromorphone HCl (DiLAUDid 0.5MG INJ) 0.5 mg Q4H PRN IVP SEVERE PAIN (7-10) 06/20/24 13:00 06/25/24 12:59 DC 06/21/24 23:50 0.5 MG Insulin Human Regular (humuLIN R 100 UNIT/ML 3ML) 10 unit ONCE STAT IV 06/17/24 04:05 06/17/24 04:12 DC 06/17/24 04:28 10 UNIT Insulin Human Regular (humuLIN R 100 UNIT/ML 3ML) INSULIN SLIDING SCAL... ACHS SQ 06/17/24 07:30 07/17/24 07:29 06/30/24 08:40 2 UNIT Lactated Ringer's 1,000 ml @ 130 mls/hr Q7H42M IV 06/21/24 09:30 06/28/24 09:51 DC 06/28/24 09:03 130 MLS/HR Lactobacillus Rhamnosus ([facility] Epiphyte & [employer]) 1 each BID PO 06/28/24 10:00 07/28/24 09:59 06/30/24 11:09 1 EACH Leptospermum Honey (Vizsafe) 1 appl DAILY TP 06/19/24 09:00 07/19/24 08:59 06/30/24 09:00 1 APPL Magnesium Sulfate 50 ml @ 0 mls/hr PROTOCOL PRN IV MAGNESIUM PROTOCOL 06/23/24 11:30 07/23/24 11:29 06/29/24 15:22 25 MLS/HR Metoprolol Tartrate (loprESSOR) 25 mg BID PO 06/24/24 14:30 07/24/24 14:29 06/30/24 11:10 25 MG Metronidazole/ Sodium Chloride (flaGYL) 500 mg Q8H IV 06/17/24 05:00 06/27/24 04:59 DC 06/26/24 21:48 500 MG Micafungin Sodium 100 ml @ 100 mls/hr Q24H IV 06/18/24 00:00 07/18/24 00:00 06/28/24 23:30 100 MLS/HR Morphine Sulfate (morPHINE 2MG SYG) 2 mg Q4H PRN IVP SEVERE PAIN (7-10) 06/29/24 00:30 07/06/24 00:29 Norepinephrine 250 ml @ 0 mls/hr PROTOCOL IV 06/16/24 22:00 06/22/24 07:20 DC 06/17/24 05:33 24.5 MLS/HR Ondansetron HCl (zoFRAN 4MG INJ) 4 mg Q6H PRN IVP NAUSEA/VOMITING 06/23/24 20:30 07/23/24 20:29 06/28/24 12:13 4 MG Pharmacy Profile Note (Lace Assessment) 1 each AD MISC 06/19/24 15:30 06/20/24 12:49 DC Pharmacy Profile Note (Pharmacy Communication) 1 each ONCE MISC 06/17/24 23:00 06/19/24 07:13 DC 06/17/24 23:31 1 EACH Pharmacy Profile Note (Pharmacy Communication) 1 each ONCE MISC 06/22/24 16:30 06/23/24 07:22 DC Pharmacy Profile Note (Pharmacy Communication) 1 each ONCE MISC 06/30/24 12:30 06/30/24 12:08 DC Pharmacy Profile Note (Pharmacy Communication) 1 each ONCE MISC 06/30/24 14:30 06/30/24 14:16 DC Phenylephrine HCl 100 mg/Sodium Chloride 250 ml @ 0 mls/hr AD PRN IV TITRATE 06/17/24 10:30 06/22/24 07:20 DC 06/18/24 05:48 27 MLS/HR Piperacillin Sod/ Tazobactam Sod (Zosyn 3.375gm+NS 50ml) 3.375 gm Q12H IV 06/16/24 21:30 06/17/24 01:03 DC 06/16/24 21:42 3.375 GM Piperacillin Sod/ Tazobactam Sod (Zosyn 3.375gm+NS 50ml) 3.375 gm Q12H IVPB 06/17/24 01:00 06/17/24 04:00 DC 06/17/24 02:54 3.375 GM Potassium Chloride 100 ml @ 100 mls/hr AD PRN IV POTASSIUM PROTOCOL 06/21/24 08:00 07/21/24 07:59 06/24/24 05:57 100 MLS/HR Potassium Chloride 100 ml @ 100 mls/hr AD PRN IV POTASSIUM PROTOCOL 06/23/24 11:30 5/22/25 11:29 Potassium Chloride (K-Dur/Klor-Con 20meq) 20 meq AD PRN PO POTASSIUM PROTOCOL 06/23/24 11:30 07/23/24 11:29 06/29/24 15:19 20 MEQ Potassium Chloride (K-Dur/Klor-Con 20meq) 40 meq BID PO 06/22/24 09:00 06/22/24 21:01 DC 06/22/24 19:54 40 MEQ Potassium Chloride (K-Dur/Klor-Con 20meq) 40 meq BID PO 06/25/24 09:00 06/28/24 09:51 DC 06/27/24 09:23 40 MEQ Potassium Chloride (KCl 10% Elixir 20meq/15ml) 20 meq AD PRN PO POTASSIUM PROTOCOL 06/23/24 11:30 07/23/24 11:29 Sodium Bicarbonate / Dextrose 1,000 ml @ 0 mls/hr Q0M IVP 06/17/24 05:00 06/17/24 04:58 DC Sodium Bicarbonate 150 meq/Dextrose 1,150 ml @ 50 mls/hr Q23H IVP 06/18/24 08:00 06/19/24 12:24 DC 06/18/24 20:23 100 MLS/HR Sodium Bicarbonate 150 meq/Dextrose 1,150 ml @ 100 mls/hr [id number] IVP 06/17/24 05:00 06/18/24 04:44 DC 06/17/24 21:00 100 MLS/HR Sodium Polystyrene Sulfonate (kayEXALate 15 GM/60 ML) 15 gm Q2H PO 06/16/24 21:30 06/16/24 23:31 DC 06/16/24 22:21 15 GM Sodium Chloride 1,000 ml @ 150 mls/hr Q6H40M IV 06/16/24 23:00 06/17/24 09:10 DC 06/17/24 05:15 150 MLS/HR Sodium Chloride (NS 50ml) 50 ml AD IV 06/17/24 01:00 06/17/24 01:05 DC Sucralfate (Carafate) 1 gm BID PO 06/28/24 12:30 06/28/24 22:30 DC 06/28/24 20:56 1 GM Thiamine HCl (Vitamin B-1) 100 mg DAILY IVP 06/17/24 09:00 07/17/24 08:59 06/30/24 11:09 100 MG Tigecycline 100 mg/Sodium Chloride 100 ml @ 200 mls/hr ONCE IV 06/22/24 16:30 06/23/24 07:21 DC 06/22/24 18:51 200 MLS/HR Tigecycline 50 mg/ Sodium Chloride 100 ml @ 200 mls/hr BID@0600,1800 IV 06/23/24 06:00 06/30/24 05:59 DC 06/29/24 17:57 200 MLS/HR Tigecycline 50 mg/ Sodium Chloride 100 ml @ 200 mls/hr BID@0600,1800 IV 06/30/24 18:00 07/10/24 17:59 Vancomycin HCl (Vancomycin 750mg) 750 mg Q96H IVPB 06/20/24 22:00 06/17/24 14:00 DC Vancomycin HCl (Vancomycin Protocol) 1 each AD IV 06/17/24 01:30 06/17/24 14:01 DC Vitamin B Complex/ Vit C/Folic Acid (Nephrovite Tablet) 1 cap DAILY PO 06/24/24 09:00 07/24/24 08:59 06/30/24 11:10 1 CAP Wound Care/ Dressing Products (Venelex Ointment) 1 APPL BID TP 06/28/24 21:00 07/28/24 20:59 06/30/24 09:00 60 GM DIAGNOSTICS / RADIOLOGY: [ ] ASSESSMENT: Severe metabolic acidosis, resolved POA Septic shock requiring vasopressor, resolved POA Paroxysmal afib with RVR Fungemia 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 Nephrology consulted, appreciate recommendations Stop LR @ 130 cc/hr Start furosemide 40mg IV BID Continue clear liquid diet, will advance tomorrow GI consulted, appreciate recommendations Hematology consulted, appreciate recommendations Anemia workup. Transfuse as needed. Hematology consultation requested per Follow critical care input and recommendation Disposition: Pending dialysis, AV fistula creation, placement AL CARDONA MD Jun 30, 2024 17:53
[2024-06-30] MEDS: TIGECYCLINE 50 MG in 0.9%NACL 100ML 100 ML IV SCH (19:50)
[2024-06-30 21:38] LABS: HIV 1&2 ANTIBODY Non-Reactive (Negative); HIV-1 p24 Antigen Non-Reactive (Negative)
--- NOTE | 2024-06-30 23:06 | PN ---
INFECTIOUS DISEASE PROGRESS NOTE Date of Service: Jun 30, 2024 SUBJECTIVE: Patient is awake, alert and oriented. Patient with edematous upper extremities. Patient is afebrile, temperature is 98.4�. Will continue on Tygacil IV and micafungin IV. No improvement on the renal function with a BUN of 137 and creatinine of 6.4 and patient has been scheduled for PermCath placement for tomorrow. No other issues reported by nursing. PHYSICAL EXAM EYES: Anicteric. Pupils equal and reactive. HENT: No oral thrush seen, moist Oral mucosa. NECK: Supple, no JVD or thyromegaly. LUNGS: Good air entry. No rales, no rhonchi. CARDIOVASCULAR: S1, S2 regular. No murmur heard. ABDOMEN: Soft, non tender, bowel sounds present, no organomegaly. CENTRAL NERVOUS SYSTEM: Awake, alert, oriented x 2. SKIN: No rashes, no swelling. LYMPHATICS: No peripheral lymphadenopathy. MUSCULOSKELETAL: No joint swelling, erythema or tenderness. EXTREMITIES: No cyanosis or clubbing. 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 BACK: No deformity, no pressure ulcer. GENITOURINARY: No dysuria or hematuria. Vital Sign (Last 12 Hours) 06/30/24 06/30/24 06/30/24 11:54 16:00 18:54 Temp 98.2 97.9 98.2 Pulse 80 79 89 Resp 16 16 18 B/P (MAP) 133/64 127/69 116/69 Pulse Ox 98 100 95 O2 Delivery Nasal Cannula Nasal Cannula Nasal Cannula O2 Flow Rate 2.0 2.0 2.0 Intake & Output (last 24hrs) 06/29/24 06/29/24 06/30/24 15:00 23:00 07:00 Intake Total 240 ml 168.0 ml Output Total 1500 ml 1850 ml Balance 240 ml -1332.0 ml -1850 ml LABS: Laboratory: Test 06/30/24 20:52 06/30/24 15:20 06/30/24 09:16 06/29/24 04:04 Range/Units Whole Blood Glucose 240 #H 70-110 MG/DL Bedside Glucose Comment Notified Nurse Hemoglobin 9.8 L 14.0-18.0 g/dL Hematocrit 28.2 L 42-54 % Blood Urea Nitrogen 135 *H 7-18 mg/dL Creatinine 6.2 H 0.5-1.3 mg/dL Glomerular Filtration Rate Calc 9 >90 mL/min Hemoglobin A1c 7.4 H 4.0-6.0 % Estimated Average Glucose (eAG) 166 H 70-126 mg/dL Iron Level 32 #L 65-175 mcg/dL Total Iron Binding Capacity 75 L 250-450 mcg/dL Percent Iron Saturation 42.6 30-44 % Ferritin 424 H 30-400 ng/mL Albumin 2.3 L 3.5-5.0 g/dL Triglycerides Level 64 30-200 mg/dL Cholesterol Level 167 <200 mg/dL LDL Cholesterol 86 0-99 mg/dL HDL Cholesterol 33 29-71 mg/dL HIV (1&2) Antibody Non-Reactive Negative HIV P24 Antigen, Qualitative Non-Reactive Negative White Blood Count 10.2 4.8-10.8 K/uL Red Blood Count 3.41 L 4.50-6.20 MIL/uL Mean Corpuscular Volume 87.4 79-99 fL Mean Corpuscular Hemoglobin 30.2 27.0-33.0 pg Mean Corpuscular Hemoglobin Concent 34.6 32.0-36.0 g/dL Red Cell Distribution Width 16.2 H 11.0-15.5 % Platelet Count 399 130-400 K/uL Mean Platelet Volume 11.4 H 7.5-10.5 fL Immature Granulocyte % (Auto) 0.4 0-1 % Neutrophils (%) (Auto) 91.7 H 40.0-77.0 % Lymphocytes (%) (Auto) 3.2 L 21.0-51.0 % Monocytes (%) (Auto) 4.6 3.0-13.0 % Eosinophils (%) (Auto) 0.0 0.0-8.0 % Basophils (%) (Auto) 0.1 0.0-5.0 % Neutrophils # (Auto) 9.3 H 1.8-7.7 K/uL Lymphocytes # (Auto) 0.3 L 1.0-4.8 K/uL Monocytes # (Auto) 0.5 0.1-1.0 K/uL Eosinophils # (Auto) 0.00 0.00-0.70 K/uL Basophils # (Auto) 0.01 0.00-0.20 K/uL Absolute Immature Granulocyte (auto 0.04 0-1 K/uL Nucleated Red Blood Cells 0.0 0.0-0.19 % Sodium Level 135 L 136-145 mmol/L Potassium Level 3.4 L 3.5-5.1 mmol/L Chloride Level 95 L 101-111 mmol/L Carbon Dioxide Level 24 21-32 mmol/L Random Glucose 192 H 70-105 mg/dL Total Calcium 7.4 L 8.5-10.1 mg/dL Lactic Acid Level 1.6 0.8-2.5 mmol/L Phosphorus Level 8.3 H 2.5-4.9 mg/dL Magnesium Level 1.70 L 1.80-2.40 mg/dL Total Bilirubin 0.7 0.2-1.0 mg/dL Aspartate Amino Transf (AST/SGOT) 22 10-37 U/L Alanine Aminotransferase (ALT/SGPT) 15 12-78 U/L Alkaline Phosphatase 139 H 50-136 U/L B-Type Natriuretic Peptide 3180 H 0-100 pg/mL Total Protein 5.8 L 6.0-8.3 g/dL Procalcitonin 0.36 0.05-0.5 ng/mL ASSESSMENT: Fungemia. 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 Septic shock, resolving. Anemia requiring blood transfusion, status post EGD. Acute renal failure. PLAN: Continue tigecycline IV. Continue micafungin. Continue wound care. [employer] Supervisor following patient. Avoid nephrotoxic medications. Patient was referred to [facility] and has been approved. Pending a PermCath placement for tomorrow to initiate dialysis. This case was reviewed and discussed with my supervising physician and the above assessment and plan was formulated and agreed upon. ATTESTATION BY PHYSICIAN I have seen and examined the patient. I reviewed the documentation, medical decision making, and treatment plan as noted by the mid-level provider above. I agree with the findings and plan of care. CECIL ROY MD, [facility] Jun 30, 2024 23:06
[2024-07-01] VITALS (24 sets, daily range): BP systolic 105–128; BP diastolic 55–66; PULSE 68–95; RESP 14–19; TEMP 97.7–98.6; O2SAT 96–98
[2024-07-01] MEDS: morPHINE 2 MG SYG IVP PRN (01:35)
[2024-07-01 04:11] LABS: HEMATOCRIT 27.4 % (42-54); MEAN CORPUSCULAR HEMOGLOBIN 29.7 pg (27.0-33.0); MEAN CORPUSCULAR VOLUME 84.8 fL (79-99); PLATELET COUNT (AUTO) 390 K/uL (130-400); RED BLOOD CELL COUNT(AUTO) 3.23 MIL/uL (4.50-6.20); RED CELL DISTRIBUTION WIDTH 15.8 % (11.0-15.5); WHITE BLOOD COUNT (AUTO) 11.7 K/uL (4.8-10.8)
[2024-07-01 04:24] LABS: INR 1.78 (0.85-1.15); PROTHROMBIN TIME 17.8 SEC (9.6-11.6)
[2024-07-01 04:25] LABS: PARTIAL THROMBOPLASTIN TIME 39.4 SEC (26.3-35.5)
[2024-07-01 04:28] LABS: ALBUMIN 2.3 g/dL (3.5-5.0); BILIRUBIN,TOTAL 0.7 mg/dL (0.2-1.0); CREATININE 6.2 mg/dL (0.5-1.3); MAGNESIUM 1.9 mg/dL (1.80-2.40); PHOSPHORUS 8.1 mg/dL (2.5-4.9); TOTAL PROTEIN, SERUM 5.7 g/dL (6.0-8.3)
[2024-07-01 04:43] LABS: LYMPHOCYTES % (MANUAL) 1 % (22-44); MONOCYTES % (MANUAL) 3 % (2-9); SEGMENTED NEUTROPHILS % 96 % (40-70); TOTAL CELLS COUNTED 100
[2024-07-01 04:45] LABS: MAN.DIFF COMMENT-IMPRESSION MANUAL DIFFERENTIAL
[2024-07-01 04:49] LABS: PLATELET MORPHOLOGY COMMENT ADEQUATE
[2024-07-01] MEDS: TIGECYCLINE 50 MG in 0.9%NACL 100ML 100 ML IV SCH (08:00)
--- NOTE | 2024-07-01 08:10 | EKG ---
[facility] Test Date: 2024-07-01 Test Time: 04:08:47 Pat Name: SELENE HALL Department: [facility] Room: 224 1 Gender: M Welfare Officer: [id number] : 1955 Requested By: BRENDA MAI Order Number: [id number] Reading MD: Alida Sawyer Measurements Intervals [place] Rate: 63 P: 0 CT: 0 QRS: -29 QRSD: 105 T: 148 QT: 499 QTc: 510 Interpretive Statements Atrial fibrillation Ventricular premature complex Probable LVH with secondary repol abnrm Prolonged QT interval Compared to ECG 06/24/2024 08:10:44 Ventricular premature complex(es) now present Prolonged QT interval now present Left-axis deviation no longer present ST (T wave) deviation no longer present Possible ischemia no longer present Electronically Signed On 07-02-2024 13:19:00 CDT by Alida Sawyer Please click the below link to view image of tracing.
--- NOTE | 2024-07-01 08:12 | NUR ---
NOTIFIED DAVIAN TEJEDA RN WITH DR. CHAPMAN ABOUT VEIN MAPPING CONSULT. Addendum: 07/01/24 at 0817 by CAROL DEWEY RN RN STATED PER , TO ORDER VEIN MAPPING TO BILATERAL UPPER EXTREMITY
[2024-07-01] MEDS ORDERED: LIDOCAINE HCL 400MG/20ML VIAL ONE (08:43)
[2024-07-01] MEDS ORDERED: HEParin 1,000 UNIT VIAL ONE (08:44)
[2024-07-01] MEDS ORDERED: HEParin-NS 1,000 UNIT/500 ML 500 ML IV ONE (08:44)
[2024-07-01] MEDS ORDERED: MIDAZOLAM HCL 1 MG/ML 2ML VIAL ONE (09:14)
[2024-07-01] MEDS ORDERED: FENTanyl CITRate PF 50 MCG/1 ML 2ML VIAL ONE (09:14)
--- NOTE | 2024-07-01 09:38 | PRN ---
SAMPLE SUPERVISOR PROCEDURE REQUEST INDICATION: ESRD, hemodialysis. MANAGER SOCIAL: Dr Jackson PROCEDURE DETAILS: Informed consent was obtained after discussion of the risks, benefits and alternatives to treatment. Sterile Prep: All elements of maximal sterile barrier technique, including hand hygiene and cutaneous antisepsis were used. A time-out was performed prior to the procedure. Anesthesia type: 14 mL of 1% lidocaine subcutaneous. Patient also received 1 mg Versed intravenous, 25 mcg fentanyl intravenous. Vital signs monitored and observed by catheter lab nursing staff. Contrast: None Estimated blood loss: Less than 5 cc. TECHNIQUE: Imaging guidance: Ultrasound demonstrates right internal jugular vein to be patent. Access: Right internal jugular vein Venous access device: 28 cm Duramax Bioflow catheter Fluoroscopy time: 0.2 minutes Intraprocedural or immediate post-procedural complications: None FINDINGS: Sonographic evaluation of the access vein: The length of the target vessel was evaluated for internal echoes, stenosis and patency. The access vessel is patent. Catheter tip location: Right atrium Additional observations: Both ports were flushed and heparin packed. Both ports were clamped and capped. Sterile dressing applied. No observed complications. IMPRESSION: Insertion of right internal jugular vein tunneled hemodialysis catheter. The catheter may be used immediately. APOLONIA JACKSON DO Jul 01, 2024 09:38
--- NOTE | 2024-07-01 09:41 | HMCIMG ---
PARK AIDE PROCEDURE REQUEST INDICATION: ESRD, hemodialysis. PRINTING PRESS MACHINIST: Dr Jackson PROCEDURE DETAILS: Informed consent was obtained after discussion of the risks, benefits and alternatives to treatment. Sterile Prep: All elements of maximal sterile barrier technique, including hand hygiene and cutaneous antisepsis were used. A time-out was performed prior to the procedure. Anesthesia type: 14 mL of 1% lidocaine subcutaneous. Patient also received 1 mg Versed intravenous, 25 mcg fentanyl intravenous. Vital signs monitored and observed by catheter lab nursing staff. Contrast: None Estimated blood loss: Less than 5 cc. TECHNIQUE: Imaging guidance: Ultrasound demonstrates right internal jugular vein to be patent. Access: Right internal jugular vein Venous access device: 28 cm Duramax Bioflow catheter Fluoroscopy time: 0.2 minutes Intraprocedural or immediate post-procedural complications: None FINDINGS: Sonographic evaluation of the access vein: The length of the target vessel was evaluated for internal echoes, stenosis and patency. The access vessel is patent. Catheter tip location: Right atrium Additional observations: Both ports were flushed and heparin packed. Both ports were clamped and capped. Sterile dressing applied. No observed complications. IMPRESSION: Insertion of right internal jugular vein tunneled hemodialysis catheter. The catheter may be used immediately.
--- NOTE | 2024-07-01 12:03 | PN ---
GASTROENTEROLOGY PROGRESS NOTE Date of Visit: Jul 01, 2024 Time of Visit: 12:03 Events / Notes: No acute events overnight. Patient had EGD revealing mucosal changes suspicious for gastritis. Denies fever, chills, abdominal pain, N/V, hematemesis, bloating, constipation, diarrhea, melena or hematochezia. Review of Systems: CONSTITUTIONAL: No malaise or change in sensation of wellbeing. ENMT: No rhinorrhea, otorrhea, sinus pain, ear ache. CARDIOVASCULAR: No angina, palpitations, orthopnea or paroxysmal dyspnea. RESPIRATORY: No SOB. GASTROINTESTINAL: No abdominal pain, nausea, vomiting, diarrhea, hematemesis, melena or change in the patient's habitual bowel movements consistency/number. GENITOURINARY: No dysuria, hematuria or change in bladder continence. MUSCULOSKELETAL: No new muscle pain or decrease in muscular strength. No new joint swelling, redness or tenderness. SKIN: No new rash. Physical Exam: GEN: Awake, alert, oriented in person, time and place, and in no acute distress. HEENT: No sinus tenderness. Tympanic membranes were not examined. No rhinorrhea. Oral pharyngeal mucosa is pink, moist and within normal limits. Neck is supple with no cervical lymphadenopathy, thyromegaly or JVD. CHEST: Inspection, palpation and percussion of the chest were unremarkable. Lung auscultation revealed normal breath sounds bilaterally. CARDIAC: PMI is within normal limits. Heart sounds are regular. Normal S1, S2. No gallop or murmur. ABD: Soft, non-tender and not distended. No peritoneal signs on palpation. No organomegaly. Normal bowel sounds. EXT: No cyanosis or clubbing. No edema. SKIN: Intact. No rashes. JOINTS: No evidence of synovitis or acute arthritis. NEURO: Alert and oriented to name, place and person. Cranial nerve examination is unremarkable. No focal motor deficits. Normal speech. Gait is normal. Strength is normal. Vital Signs (last 8hr) Date Time Temp Pulse Resp B/P (MAP) Pulse Ox O2 Delivery O2 Flow Rate FiO2 07/01/24 08:00 Nasal Cannula 2.0 07/01/24 07:00 96 Nasal Cannula* 2 28 Laboratory: [ ] Laboratory: Test 07/01/24 11:49 07/01/24 04:03 06/30/24 20:52 06/30/24 15:20 Range/Units Whole Blood Glucose 139 #H 70-110 MG/DL White Blood Count 11.7 H 4.8-10.8 K/uL Red Blood Count 3.23 L 4.50-6.20 MIL/uL Hemoglobin 9.6 L 14.0-18.0 g/dL Hematocrit 27.4 L 42-54 % Mean Corpuscular Volume 84.8 79-99 fL Mean Corpuscular Hemoglobin 29.7 27.0-33.0 pg Mean Corpuscular Hemoglobin Concent 35.0 32.0-36.0 g/dL Red Cell Distribution Width 15.8 H 11.0-15.5 % Platelet Count 390 130-400 K/uL Mean Platelet Volume 11.6 H 7.5-10.5 fL Segmented Neutrophils % 96 H 40-70 % Lymphocytes % (Manual) 1 L 22-44 % Monocytes % (Manual) 3 2-9 % Nucleated Red Blood Cells 0.0 0.0-0.19 % Differential Comment MANUAL DIFFERENTIAL White Cell Morphology Comment See comments Platelet Morphology Comment ADEQUATE Red Blood Cell Morphology See comments Prothrombin Time 17.8 H 9.6-11.6 SEC Prothromb Time International Ratio 1.78 H 0.85-1.15 Activated Partial Thromboplast Time 39.4 H 26.3-35.5 SEC Sodium Level 134 L 136-145 mmol/L Potassium Level 3.0 *L 3.5-5.1 mmol/L Chloride Level 94 L 101-111 mmol/L Carbon Dioxide Level 24 21-32 mmol/L Blood Urea Nitrogen 138 *H 7-18 mg/dL Creatinine 6.2 H 0.5-1.3 mg/dL Glomerular Filtration Rate Calc 9 >90 mL/min Random Glucose 90 # 70-105 mg/dL Total Calcium 7.3 L 8.5-10.1 mg/dL Phosphorus Level 8.1 H 2.5-4.9 mg/dL Magnesium Level 1.90 1.80-2.40 mg/dL Total Bilirubin 0.7 0.2-1.0 mg/dL Aspartate Amino Transf (AST/SGOT) 23 10-37 U/L Alanine Aminotransferase (ALT/SGPT) 18 12-78 U/L Alkaline Phosphatase 154 H 50-136 U/L Total Protein 5.7 L 6.0-8.3 g/dL Albumin 2.3 L 3.5-5.0 g/dL Bedside Glucose Comment Notified Nurse Hemoglobin A1c 7.4 H 4.0-6.0 % Estimated Average Glucose (eAG) 166 H 70-126 mg/dL Iron Level 32 #L 65-175 mcg/dL Total Iron Binding Capacity 75 L 250-450 mcg/dL Percent Iron Saturation 42.6 30-44 % Ferritin 424 H 30-400 ng/mL Triglycerides Level 64 30-200 mg/dL Cholesterol Level 167 <200 mg/dL LDL Cholesterol 86 0-99 mg/dL HDL Cholesterol 33 29-71 mg/dL HIV (1&2) Antibody Non-Reactive Negative HIV P24 Antigen, Qualitative Non-Reactive Negative Test 06/30/24 09:16 Range/Units Immature Granulocyte % (Auto) 0.4 0-1 % Neutrophils (%) (Auto) 91.7 H 40.0-77.0 % Lymphocytes (%) (Auto) 3.2 L 21.0-51.0 % Monocytes (%) (Auto) 4.6 3.0-13.0 % Eosinophils (%) (Auto) 0.0 0.0-8.0 % Basophils (%) (Auto) 0.1 0.0-5.0 % Neutrophils # (Auto) 9.3 H 1.8-7.7 K/uL Lymphocytes # (Auto) 0.3 L 1.0-4.8 K/uL Monocytes # (Auto) 0.5 0.1-1.0 K/uL Eosinophils # (Auto) 0.00 0.00-0.70 K/uL Basophils # (Auto) 0.01 0.00-0.20 K/uL Absolute Immature Granulocyte (auto 0.04 0-1 K/uL Current Medications Medications (Trade) Dose Ordered Sig/Roderick Route PRN Reason Start Time Stop Time Status Last Admin Dose Admin Albuterol Sulfate (Proventil 0.083% 2.5mg/3ml) 10 mg ONCE STAT IH 06/17/24 04:05 06/17/24 04:12 DC 06/17/24 04:31 10 MG Amiodarone HCl 360 mg/Dextrose 200 ml @ 0 mls/hr PROTOCOL IV 06/24/24 14:30 06/25/24 09:16 DC 06/24/24 15:51 33.33 MLS/HR Amiodarone HCl 540 mg/Dextrose 300 ml @ 0 mls/hr PROTOCOL IV 06/24/24 21:00 07/24/24 20:59 06/24/24 20:42 16.7 MLS/HR Amlodipine Besylate (NorvASC 5MG TAB) 5 mg BID PO 06/22/24 09:00 07/22/24 08:59 06/30/24 21:37 5 MG Apixaban (EliquIS) 5 mg BID PO 06/24/24 14:30 06/30/24 19:54 DC 06/30/24 11:10 5 MG Calcium Carbonate (Tums 500 Mg Chew Tab) 500 tab ONCE PO 06/26/24 15:30 07/26/24 15:29 Cancel Calcium Carbonate (Tums 500 Mg Chew Tab) 500 tab Q6H6 PRN PO GI UPSET/UPSET STOMACH 06/28/24 12:00 07/28/24 11:59 06/30/24 21:37 1 TAB Calcium Gluconate (Calcium Gluc 1gm Vial) 1 gm AD STAT IV 06/17/24 04:05 06/17/24 04:12 DC 06/17/24 04:21 1 GM Cefepime HCl (MAXipime 1 GM vial) 0.25 gm Q24H IVPB 06/17/24 04:00 06/18/24 04:06 DC 06/17/24 04:58 0.25 GM Cefepime HCl (MAXipime 1 GM vial) 1 gm Q24H IVPB 06/20/24 05:00 06/22/24 16:09 DC 06/22/24 03:12 1 GM Cefepime HCl 0.25 gm/Sodium Chloride 50 ml @ 100 mls/hr Q24H IVPB 06/18/24 04:30 06/19/24 10:58 DC 06/19/24 05:26 100 MLS/HR Dextrose (D50w) 50 ml AD PRN IV HYPOGLYCEMIA PROTOCOL 06/17/24 01:00 06/17/24 01:01 DC Dextrose (D50w) 50 ml AD PRN IV HYPOGLYCEMIA PROTOCOL 06/17/24 01:00 07/17/24 00:59 Dextrose (D50w) 50 ml ONCE STAT IV 06/17/24 04:05 06/17/24 04:12 DC 06/17/24 04:21 50 ML Epoetin Rylan-epbx (Retacrit) 10,000 unit [id number] SQ 06/24/24 14:00 06/24/24 13:53 DC Epoetin Rylan-epbx (Retacrit) 10,000 unit QMOWEFR@1600 SQ 06/29/24 15:00 07/29/24 14:59 06/29/24 15:21 10,000 UNIT Epoetin Rylan-epbx (Retacrit) 10,000 unit QWEEK SQ 06/24/24 14:00 06/29/24 14:23 DC 06/24/24 14:37 10,000 UNIT Famotidine (Pepcid 20mg Vial) 20 mg Q48H IV 06/17/24 01:00 07/17/24 00:59 07/01/24 01:35 20 MG Folic Acid (FOLic ACID 1 MG TABLET) 1 mg DAILY PO 06/25/24 09:00 07/25/24 08:59 06/30/24 11:08 1 MG Furosemide (LASix 40MG VIAL) 40 mg Q12H IV 06/28/24 21:00 07/28/24 20:59 06/30/24 21:37 40 MG Furosemide (LASix 40MG VIAL) 40 mg Q8H IV 06/19/24 18:30 06/20/24 18:31 DC 06/20/24 18:54 40 MG Glucagon (Glucagon 1mg Kit) 1 mg AD PRN IM HYPOGLYCEMIA PROTOCOL 06/17/24 01:00 06/17/24 01:01 DC Glucagon (Glucagon 1mg Kit) 1 mg AD PRN IM HYPOGLYCEMIA PROTOCOL 06/17/24 01:00 07/17/24 00:59 Hydralazine HCl ([id number] TAB) 25 mg TID PO 06/22/24 09:00 07/22/24 08:59 06/30/24 21:37 25 MG Hydrocortisone Sodium Succinate (Solu-corTEF 100MG) 50 mg ONCE@1930 IV 06/22/24 19:30 06/22/24 22:30 DC 06/22/24 19:59 50 MG Hydrocortisone Sodium Succinate (Solu-corTEF 100MG) 50 mg Q8H IV 06/18/24 11:30 06/22/24 15:46 DC 06/22/24 03:12 50 MG Hydrocortisone Sodium Succinate (Solu-corTEF 100MG) 50 mg Q8H6 IV 06/23/24 06:00 07/23/24 05:59 07/01/24 06:27 50 MG Hydromorphone HCl (DiLAUDid 0.5MG INJ) 0.5 mg Q4H PRN IVP SEVERE PAIN (7-10) 06/20/24 13:00 06/25/24 12:59 DC 06/21/24 23:50 0.5 MG Insulin Human Regular (humuLIN R 100 UNIT/ML 3ML) 10 unit ONCE STAT IV 06/17/24 04:05 06/17/24 04:12 DC 06/17/24 04:28 10 UNIT Insulin Human Regular (humuLIN R 100 UNIT/ML 3ML) INSULIN SLIDING SCAL... ACHS SQ 06/17/24 07:30 07/17/24 07:29 06/30/24 21:56 4 UNIT Lactated Ringer's 1,000 ml @ 130 mls/hr Q7H42M IV 06/21/24 09:30 06/28/24 09:51 DC 06/28/24 09:03 130 MLS/HR Lactobacillus Rhamnosus ([facility] [employer]) 1 each BID PO 06/28/24 10:00 07/28/24 09:59 06/30/24 21:37 1 EACH Leptospermum Honey (Medihoney) 1 appl DAILY TP 06/19/24 09:00 07/19/24 08:59 06/30/24 09:00 1 APPL Magnesium Sulfate 50 ml @ 0 mls/hr PROTOCOL PRN IV MAGNESIUM PROTOCOL 06/23/24 11:30 07/23/24 11:29 06/29/24 15:22 25 MLS/HR Metoprolol Tartrate (loprESSOR) 25 mg BID PO 06/24/24 14:30 07/24/24 14:29 06/30/24 21:37 25 MG Metronidazole/ Sodium Chloride (flaGYL) 500 mg Q8H IV 06/17/24 05:00 06/27/24 04:59 DC 06/26/24 21:48 500 MG Micafungin Sodium 100 ml @ 100 mls/hr Q24H IV 06/18/24 00:00 07/18/24 00:00 07/01/24 01:35 100 MLS/HR Morphine Sulfate (morPHINE 2MG SYG) 2 mg Q4H PRN IVP SEVERE PAIN (7-10) 06/29/24 00:30 07/06/24 00:29 07/01/24 01:35 2 MG Norepinephrine 250 ml @ 0 mls/hr PROTOCOL IV 06/16/24 22:00 06/22/24 07:20 DC 06/17/24 05:33 24.5 MLS/HR Ondansetron HCl (zoFRAN 4MG INJ) 4 mg Q6H PRN IVP NAUSEA/VOMITING 06/23/24 20:30 07/23/24 20:29 06/30/24 21:38 4 MG Pharmacy Profile Note (Lace Assessment) 1 each AD MISC 06/19/24 15:30 06/20/24 12:49 DC Pharmacy Profile Note (Pharmacy Communication) 1 each ONCE MISC 06/17/24 23:00 06/19/24 07:13 DC 06/17/24 23:31 1 EACH Pharmacy Profile Note (Pharmacy Communication) 1 each ONCE MISC 06/22/24 16:30 06/23/24 07:22 DC Pharmacy Profile Note (Pharmacy Communication) 1 each ONCE MISC 06/30/24 12:30 06/30/24 12:08 DC Pharmacy Profile Note (Pharmacy Communication) 1 each ONCE MISC 06/30/24 14:30 06/30/24 14:16 DC Phenylephrine HCl 100 mg/Sodium Chloride 250 ml @ 0 mls/hr AD PRN IV TITRATE 06/17/24 10:30 06/22/24 07:20 DC 06/18/24 05:48 27 MLS/HR Piperacillin Sod/ Tazobactam Sod (Zosyn 3.375gm+NS 50ml) 3.375 gm Q12H IV 06/16/24 21:30 06/17/24 01:03 DC 06/16/24 21:42 3.375 GM Piperacillin Sod/ Tazobactam Sod (Zosyn 3.375gm+NS 50ml) 3.375 gm Q12H IVPB 06/17/24 01:00 06/17/24 04:00 DC 06/17/24 02:54 3.375 GM Potassium Chloride 100 ml @ 100 mls/hr AD PRN IV POTASSIUM PROTOCOL 06/21/24 08:00 07/21/24 07:59 07/01/24 05:21 100 MLS/HR Potassium Chloride 100 ml @ 100 mls/hr AD PRN IV POTASSIUM PROTOCOL 06/23/24 11:30 07/23/24 11:29 Potassium Chloride (K-Dur/Klor-Con 20meq) 20 meq AD PRN PO POTASSIUM PROTOCOL 06/23/24 11:30 07/23/24 11:29 06/29/24 15:19 20 MEQ Potassium Chloride (K-Dur/Klor-Con 20meq) 40 meq BID PO 06/22/24 09:00 06/22/24 21:01 DC 06/22/24 19:54 40 MEQ Potassium Chloride (K-Dur/Klor-Con 20meq) 40 meq BID PO 06/25/24 09:00 06/28/24 09:51 DC 06/27/24 09:23 40 MEQ Potassium Chloride (KCl 10% Elixir 20meq/15ml) 20 meq AD PRN PO POTASSIUM PROTOCOL 06/23/24 11:30 07/23/24 11:29 Sodium Bicarbonate / Dextrose 1,000 ml @ 0 mls/hr Q0M IVP 06/17/24 05:00 06/17/24 04:58 DC Sodium Bicarbonate 150 meq/Dextrose 1,150 ml @ 50 mls/hr Q23H IVP 06/18/24 08:00 06/19/24 12:24 DC 06/18/24 20:23 100 MLS/HR Sodium Bicarbonate 150 meq/Dextrose 1,150 ml @ 100 mls/hr [id number] IVP 06/17/24 05:00 06/18/24 04:44 DC 06/17/24 21:00 100 MLS/HR Sodium Polystyrene Sulfonate (kayEXALate 15 GM/60 ML) 15 gm Q2H PO 06/16/24 21:30 06/16/24 23:31 DC 06/16/24 22:21 15 GM Sodium Chloride 1,000 ml @ 150 mls/hr Q6H40M IV 06/16/24 23:00 06/17/24 09:10 DC 06/17/24 05:15 150 MLS/HR Sodium Chloride (NS 50ml) 50 ml AD IV 06/17/24 01:00 06/17/24 01:05 DC Sucralfate (Carafate) 1 gm BID PO 06/28/24 12:30 06/28/24 22:30 DC 06/28/24 20:56 1 GM Thiamine HCl (Vitamin B-1) 100 mg DAILY IVP 06/17/24 09:00 07/17/24 08:59 06/30/24 11:09 100 MG Tigecycline 100 mg/Sodium Chloride 100 ml @ 200 mls/hr ONCE IV 06/22/24 16:30 06/23/24 07:21 DC 06/22/24 18:51 200 MLS/HR Tigecycline 50 mg/ Sodium Chloride 100 ml @ 200 mls/hr BID@0600,1800 IV 06/23/24 06:00 06/30/24 05:59 DC 06/29/24 17:57 200 MLS/HR Tigecycline 50 mg/ Sodium Chloride 100 ml @ 200 mls/hr BID@0600,1800 IV 06/30/24 18:00 06/30/24 19:53 DC 06/30/24 19:50 200 MLS/HR Tigecycline 50 mg/ Sodium Chloride 100 ml @ 200 mls/hr BID@0800,2000 IV 07/01/24 08:00 07/10/24 07:59 Vancomycin HCl (Vancomycin 750mg) 750 mg Q96H IVPB 06/20/24 22:00 06/17/24 14:00 DC Vancomycin HCl (Vancomycin Protocol) 1 each AD IV 06/17/24 01:30 06/17/24 14:01 DC Vitamin B Complex/ Vit C/Folic Acid (Nephrovite Tablet) 1 cap DAILY PO 06/24/24 09:00 07/24/24 08:59 06/30/24 11:10 1 CAP Wound Care/ Dressing Products (Venelex Ointment) 1 APPL BID TP 06/28/24 21:00 07/28/24 20:59 06/30/24 21:38 1 GM Diagnostics / Radiology: [COPY/PASTE HERE IF NO REPORTS PLEASE DELETE SECTION] Assessment: Gastritis Acute blood loss anemia HTN DM Plan: Patient defers Colonoscopy Continue GI prophylaxis Advance diet as tolerated Avoid NSAIDs Antireflux measures Monitor H&H and transfuse as needed Call with questions, concerns or change in clinical status Patient to follow-up at clinic post discharge Thank you for this consult ANGEL BURDEN [facility] Jul 01, 2024 12:03
[2024-07-01 12:33] LABS: HEPATITIS B CORE AB TOTAL Non-Reactive (Nonreactive); HEPATITIS B SURFACE ANTIBODY Negative (Reactive); HEPATITIS B SURFACE ANTIGEN Non-Reactive (Nonreactive); HEPATITIS C ANTIBODY Non-Reactive (Nonreactive)
--- NOTE | 2024-07-01 13:57 | PN ---
[facility] PROGRESS NOTE This is a late documentation for services provided on 06/30/2024 at 11:32 a.m. Date Patient Seen: Jun 30, 2024 Time of Visit: 13:57 Supervising Physician: Dr. Archer Supervising Physician: Dr. Evan Patel Primary Care Physician: [None-recently relocated from [place]] Outpatient Specialists: [ ] Inpatient Consults: BIS team, nephro: Dr. Dowd, cardio: Dr. Bae] PROBLEM LIST: NETO on CKD POA resolving Uremia-POA Enterocolitis POA Cholelithiasis Mild Distal colonic Diverticulosis POA Severe hyperkalemia-POA Resolved Thrombocytopenia-POA. resolved Severe lactic acidosis-POA, resolved NSTEM Type II from septic shock on arrival INTERVAL HISTORY: No major over night events. Pt is awake alert and oriented x 3 . no further episodes of nausea or vomiting, BNP 3180, He contiues on lasix 40mg IV q 12hrs per nephrology recs. Urine output 1.4 L. Ches XR with bilateral pulmonary vas cular congestion. He is pending SNF per case management. currently on 2L. 06/30/2024: At the time of my evaluation, the patient was lying in. The staff nurse reports acute events overnight. The patient remains on cannula and on the monitor he is hemodynamically stable. Laboratory data was notable for a sodium count of 135, potassium of 3.4, chloride of 95, CO2 of 24, BUN of 137, creatinine of 6.4. Chest x-ray today was unremarkable. No other complaint REVIEW OF SYSTEMS: Unable to perform 12 point ROS due to patient's encephalopathy. PHYSICAL EXAM: GENERAL: Awake, Alert. Generally weak HEENT: Normocephalic, atraumatic, dry mucosa NECK: Supple, no JVD, trachea midline LUNGS: Clear breath sounds bilaterally. No wheezes HEART: Regular rate and rhythm. Normal S1 and S2, positive murmurs , tachycardic ABD: Abdomen soft, nontender. Bowel sounds present EXT: No clubbing, cyanosis, or edema, bilateral feet wound with toe amputations with dressing CDI NEURO: Awake alert and oriented x 3 Vital Signs (last 8hr) Date Time Temp Pulse Resp B/P (MAP) Pulse Ox O2 Delivery O2 Flow Rate FiO2 07/01/24 13:00 85 19 122/59 96 Nasal Cannula 2.0 07/01/24 12:00 95 19 122/66 96 Nasal Cannula 2.0 07/01/24 11:30 80 19 112/61 98 Nasal Cannula 2.0 07/01/24 11:00 79 19 115/65 97 Nasal Cannula 2.0 07/01/24 10:45 80 19 105/63 98 Nasal Cannula 2.0 07/01/24 10:30 71 19 108/59 97 Nasal Cannula 2.0 07/01/24 10:15 79 19 105/60 97 Nasal Cannula 2.0 07/01/24 10:00 74 19 114/65 96 Nasal Cannula 2.0 07/01/24 08:00 Nasal Cannula 2.0 07/01/24 07:00 96 Nasal Cannula* 2 28 LABS: Hematology Labs: Test 07/01/24 04:03 06/30/24 09:16 Range/Units White Blood Count 11.7 H 4.8-10.8 K/uL Red Blood Count 3.23 L 4.50-6.20 MIL/uL Hemoglobin 9.6 L 14.0-18.0 g/dL Hematocrit 27.4 L 42-54 % Mean Corpuscular Volume 84.8 79-99 fL Mean Corpuscular Hemoglobin 29.7 27.0-33.0 pg Mean Corpuscular Hemoglobin Concent 35.0 32.0-36.0 g/dL Red Cell Distribution Width 15.8 H 11.0-15.5 % Platelet Count 390 130-400 K/uL Mean Platelet Volume 11.6 H 7.5-10.5 fL Segmented Neutrophils % 96 H 40-70 % Lymphocytes % (Manual) 1 L 22-44 % Monocytes % (Manual) 3 2-9 % Nucleated Red Blood Cells 0.0 0.0-0.19 % Differential Comment MANUAL DIFFERENTIAL White Cell Morphology Comment See comments Platelet Morphology Comment ADEQUATE Red Blood Cell Morphology See comments Immature Granulocyte % (Auto) 0.4 0-1 % Neutrophils (%) (Auto) 91.7 H 40.0-77.0 % Lymphocytes (%) (Auto) 3.2 L 21.0-51.0 % Monocytes (%) (Auto) 4.6 3.0-13.0 % Eosinophils (%) (Auto) 0.0 0.0-8.0 % Basophils (%) (Auto) 0.1 0.0-5.0 % Neutrophils # (Auto) 9.3 H 1.8-7.7 K/uL Lymphocytes # (Auto) 0.3 L 1.0-4.8 K/uL Monocytes # (Auto) 0.5 0.1-1.0 K/uL Eosinophils # (Auto) 0.00 0.00-0.70 K/uL Basophils # (Auto) 0.01 0.00-0.20 K/uL Absolute Immature Granulocyte (auto 0.04 0-1 K/uL Chemistry Labs: Test 07/01/24 11:49 07/01/24 04:03 06/30/24 20:52 06/30/24 15:20 Range/Units Whole Blood Glucose 139 #H 70-110 MG/DL Sodium Level 134 L 136-145 mmol/L Potassium Level 3.0 *L 3.5-5.1 mmol/L Chloride Level 94 L 101-111 mmol/L Carbon Dioxide Level 24 21-32 mmol/L Blood Urea Nitrogen 138 *H 7-18 mg/dL Creatinine 6.2 H 0.5-1.3 mg/dL Glomerular Filtration Rate Calc 9 >90 mL/min Random Glucose 90 # 70-105 mg/dL Total Calcium 7.3 L 8.5-10.1 mg/dL Phosphorus Level 8.1 H 2.5-4.9 mg/dL Magnesium Level 1.90 1.80-2.40 mg/dL Total Bilirubin 0.7 0.2-1.0 mg/dL Aspartate Amino Transf (AST/SGOT) 23 10-37 U/L Alanine Aminotransferase (ALT/SGPT) 18 12-78 U/L Alkaline Phosphatase 154 H 50-136 U/L Total Protein 5.7 L 6.0-8.3 g/dL Albumin 2.3 L 3.5-5.0 g/dL Bedside Glucose Comment Notified Nurse Hemoglobin A1c 7.4 H 4.0-6.0 % Estimated Average Glucose (eAG) 166 H 70-126 mg/dL Iron Level 32 #L 65-175 mcg/dL Total Iron Binding Capacity 75 L 250-450 mcg/dL Percent Iron Saturation 42.6 30-44 % Ferritin 424 H 30-400 ng/mL Triglycerides Level 64 30-200 mg/dL Cholesterol Level 167 <200 mg/dL LDL Cholesterol 86 0-99 mg/dL HDL Cholesterol 33 29-71 mg/dL Coagulation Labs: Test 07/01/24 04:03 Range/Units Prothrombin Time 17.8 H 9.6-11.6 SEC Prothromb Time International Ratio 1.78 H 0.85-1.15 Activated Partial Thromboplast Time 39.4 H 26.3-35.5 SEC DIAGNOSTICS / RADIOLOGY RESULTS: [ ] PLAN Disposition as per primary Pending SNF continue on supplemental oxygen aspiration precautions nutritional support 06/30/2024: For now, going to continue current management for the patient. He is going to continue on oxygen supplementation as ordered. Nephrology discussed with the patient regarding the need for renal replacement therapy to which the patient has agreed. We will continue antibiotic/antifungal therapy as ordered. We will follow the recommendation of the treating specialist. We will monitor the patient's progress and response to management. Further orders per attending MD and hospital course. NEURO: Minimize central acting medications as possible. Maintain fall precautions, adequate lighting during the day PULMONARY: Supplemental 02 as needed. Maintain aspiration precautions at all times CARDIOVASCULAR: Follow hemodynamics. Vital signs per facility protocol GI & NUTRITION: Continue with nutritional support. Continue stool softeners and laxatives as needed. KIDNEYS & ELECTROLYTES: Strict monitoring of intake, output and overall fluid balance. Avoid nephrotoxic medications to the extent possible. Medications to be dosed according to renal function. Monitor electrolytes and replace as needed ENDOCRINE: Maintain blood glucose between 100-180 at all times. Hypoglycemia protocol in place INFECTIOUS DISEASE: Trend temperature, WBC and procalcitonin level Follow cultures, deescalate antibiotics as soon as possible. Panculture if new onset fever ONCOLOGY/HEMATOLOGY/COAGULATION: Monitor for s/s of bleeding Monitor hemoglobin, coagulation studies as needed SKIN: Pressure ulcer prevention per facility protocol Specialty mattress ORTHO/REHAB: Continue PT/OT Prophylaxis: Continue GI and DVT prophylaxis Code Status: Full Resuscitation Disposition: PCCU LALI BOLDEN NP Jul 01, 2024 13:57
--- NOTE | 2024-07-01 13:57 | PN ---
[facility] PROGRESS NOTE Date Patient Seen: Jul 01, 2024 Time of Visit: 13:57 Supervising Physician: Dr. Archer Supervising Physician: Dr. Archer Primary Care Physician: [None-recently relocated from [place]] Outpatient Specialists: [ ] Inpatient Consults: BIS team, nephro: Dr. Dowd, cardio: Dr. Bae] PROBLEM LIST: NETO on CKD POA resolving Uremia-POA Enterocolitis POA Cholelithiasis Mild Distal colonic Diverticulosis POA Severe hyperkalemia-POA Resolved Thrombocytopenia-POA. resolved Severe lactic acidosis-POA, resolved NSTEM Type II from septic shock on arrival INTERVAL HISTORY: No major over night events. Pt is awake alert and oriented x 3 . no further episodes of nausea or vomiting, BNP 3180, He contiues on lasix 40mg IV q 12hrs per nephrology recs. Urine output 1.4 L. Ches XR with bilateral pulmonary vascular congestion. He is pending SNF per case management. currently on 2L. 07/01/2024: At the time of my evaluation, the patient was lying in. The staff nurse reports acute events overnight. The patient remains on cannula and on the monitor he is hemodynamically stable. Laboratory data was notable for a s interval increase of WBC to 11.7, sodium of 134, potassium of 3.0, chloride 94, CO2 24, BUN of 138, creatinine of 6.2 and a GFR of 9. odium count of 135, po tassium of 3.4, chloride of 95, CO2 of 24, BUN of 137, creatinine of 6.4. No new imaging for review. No other complaint. REVIEW OF SYSTEMS: Unable to perform 12 point ROS due to patient's encephalopathy. PHYSICAL EXAM: GENERAL: Awake, Alert. Generally weak HEENT: Normocephalic, atraumatic, dry mucosa NECK: Supple, no JVD, trachea midline LUNGS: Clear breath sounds bilaterally. No wheezes HEART: Regular rate and rhythm. Normal S1 and S2, positive murmurs , tachycardic ABD: Abdomen soft, nontender. Bowel sounds present EXT: No clubbing, cyanosis, or edema, bilateral feet wound with toe amputations with dressing CDI NEURO: Awake alert and oriented x 3 Vital Signs (last 8hr) Date Time Temp Pulse Resp B/P (MAP) Pulse Ox O2 Delivery O2 Flow Rate FiO2 4/30/25 13:00 85 19 122/59 96 Nasal Cannula 2.0 07/01/24 12:00 95 19 122/66 96 Nasal Cannula 2.0 07/01/24 11:30 80 19 112/61 98 Nasal Cannula 2.0 07/01/24 11:00 79 19 115/65 97 Nasal Cannula 2.0 07/01/24 10:45 80 19 105/63 98 Nasal Cannula 2.0 07/01/24 10:30 71 19 108/59 97 Nasal Cannula 2.0 07/01/24 10:15 79 19 105/60 97 Nasal Cannula 2.0 07/01/24 10:00 74 19 114/65 96 Nasal Cannula 2.0 07/01/24 08:00 Nasal Cannula 2.0 07/01/24 07:00 96 Nasal Cannula* 2 28 LABS: Hematology Labs: Test 07/01/24 04:03 06/30/24 09:16 Range/Units White Blood Count 11.7 H 4.8-10.8 K/uL Red Blood Count 3.23 L 4.50-6.20 MIL/uL Hemoglobin 9.6 L 14.0-18.0 g/dL Hematocrit 27.4 L 42-54 % Mean Corpuscular Volume 84.8 79-99 fL Mean Corpuscular Hemoglobin 29.7 27.0-33.0 pg Mean Corpuscular Hemoglobin Concent 35.0 32.0-36.0 g/dL Red Cell Distribution Width 15.8 H 11.0-15.5 % Platelet Count 390 130-400 K/uL Mean Platelet Volume 11.6 H 7.5-10.5 fL Segmented Neutrophils % 96 H 40-70 % Lymphocytes % (Manual) 1 L 22-44 % Monocytes % (Manual) 3 2-9 % Nucleated Red Blood Cells 0.0 0.0-0.19 % Differential Comment MANUAL DIFFERENTIAL White Cell Morphology Comment See comments Platelet Morphology Comment ADEQUATE Red Blood Cell Morphology See comments Immature Granulocyte % (Auto) 0.4 0-1 % Neutrophils (%) (Auto) 91.7 H 40.0-77.0 % Lymphocytes (%) (Auto) 3.2 L 21.0-51.0 % Monocytes (%) (Auto) 4.6 3.0-13.0 % Eosinophils (%) (Auto) 0.0 0.0-8.0 % Basophils (%) (Auto) 0.1 0.0-5.0 % Neutrophils # (Auto) 9.3 H 1.8-7.7 K/uL Lymphocytes # (Auto) 0.3 L 1.0-4.8 K/uL Monocytes # (Auto) 0.5 0.1-1.0 K/uL Eosinophils # (Auto) 0.00 0.00-0.70 K/uL Basophils # (Auto) 0.01 0.00-0.20 K/uL Absolute Immature Granulocyte (auto 0.04 0-1 K/uL Chemistry Labs: Test 07/01/24 11:49 07/01/24 04:03 06/30/24 20:52 06/30/24 15:20 Range/Units Whole Blood Glucose 139 #H 70-110 MG/DL Sodium Level 134 L 136-145 mmol/L Potassium Level 3.0 *L 3.5-5.1 mmol/L Chloride Level 94 L 101-111 mmol/L Carbon Dioxide Level 24 21-32 mmol/L Blood Urea Nitrogen 138 *H 7-18 mg/dL Creatinine 6.2 H 0.5-1.3 mg/dL Glomerular Filtration Rate Calc 9 >90 mL/min Random Glucose 90 # 70-105 mg/dL Total Calcium 7.3 L 8.5-10.1 mg/dL Phosphorus Level 8.1 H 2.5-4.9 mg/dL Magnesium Level 1.90 1.80-2.40 mg/dL Total Bilirubin 0.7 0.2-1.0 mg/dL Aspartate Amino Transf (AST/SGOT) 23 10-37 U/L Alanine Aminotransferase (ALT/SGPT) 18 12-78 U/L Alkaline Phosphatase 154 H 50-136 U/L Total Protein 5.7 L 6.0-8.3 g/dL Albumin 2.3 L 3.5-5.0 g/dL Bedside Glucose Comment Notified Nurse Hemoglobin A1c 7.4 H 4.0-6.0 % Estimated Average Glucose (eAG) 166 H 70-126 mg/dL Iron Level 32 #L 65-175 mcg/dL Total Iron Binding Capacity 75 L 250-450 mcg/dL Percent Iron Saturation 42.6 30-44 % Ferritin 424 H 30-400 ng/mL Triglycerides Level 64 30-200 mg/dL Cholesterol Level 167 <200 mg/dL LDL Cholesterol 86 0-99 mg/dL HDL Cholesterol 33 29-71 mg/dL Coagulation Labs: Test 07/01/24 04:03 Range/Units Prothrombin Time 17.8 H 9.6-11.6 SEC Prothromb Time International Ratio 1.78 H 0.85-1.15 Activated Partial Thromboplast Time 39.4 H 26.3-35.5 SEC DIAGNOSTICS / RADIOLOGY RESULTS: [ ] PLAN Disposition as per primary Pending SNF continue on supplemental oxygen aspiration precautions nutritional support 07/01/2024: For now, going to continue current management for the patient. He is going to continue on oxygen supplementation as ordered. Nephrology discussed with the patient regarding the need for renal replacement therapy to which the patient has agreed and today he underwent a right IJ tunneled hemodialysis catheter placement. Plans are to start hemodialysis later today. We will continue antibiotic/antifungal therapy as ordered. We will follow the recommendation of the treating specialist. We will monitor the patient's progress and response to management. Further orders per attending MD and hospital course. NEURO: Minimize central acting medications as possible. Maintain fall precautions, adequate lighting during the day PULMONARY: Supplemental 02 as needed. Maintain aspiration precautions at all times CARDIOVASCULAR: Follow hemodynamics. Vital signs per facility protocol GI & NUTRITION: Continue with nutritional support. Continue stool softeners and laxatives as needed. KIDNEYS & ELECTROLYTES: Strict monitoring of intake, output and overall fluid balance. Avoid nephrotoxic medications to the extent possible. Medications to be dosed according to renal function. Monitor electrolytes and replace as needed ENDOCRINE: Maintain blood glucose between 100-180 at all times. Hypoglycemia protocol in place INFECTIOUS DISEASE: Trend temperature, WBC and procalcitonin level Follow cultures, deescalate antibiotics as soon as possible. Panculture if new onset fever ONCOLOGY/HEMATOLOGY/COAGULATION: Monitor for s/s of bleeding Monitor hemoglobin, coagulation studies as needed SKIN: Pressure ulcer prevention per facility protocol Specialty mattress ORTHO/REHAB: Continue PT/OT Prophylaxis: Continue GI and DVT prophylaxis Code Status: Full Resuscitation Disposition: PCCU LALI BOLDEN NP Jul 01, 2024 13:57
--- NOTE | 2024-07-01 14:47 | PN ---
INFECTIOUS DISEASE PROGRESS NOTE Date of Service: Jul 01, 2024 SUBJECTIVE: Patient is awake, alert and oriented. Patient is status post hemodialysis catheter placement this morning and first dialysis treatment in process. No fever, temperature is 97.7� and the WBC is slightly elevated at 11.7. Continues on Tygacil IV and micafungin IV. No other issues reported by nursing. PHYSICAL EXAM EYES: Anicteric. Pupils equal and reactive. HENT: No oral thrush seen, moist Oral mucosa. NECK: Supple, no JVD or thyromegaly. LUNGS: Good air entry. No rales, no rhonchi. CARDIOVASCULAR: S1, S2 regular. No murmur heard. ABDOMEN: Soft, non tender, bowel sounds present, no organomegaly. CENTRAL NERVOUS SYSTEM: Awake, alert, oriented x 2. SKIN: No rashes, no swelling. LYMPHATICS: No peripheral lymphadenopathy. MUSCULOSKELETAL: No joint swelling, erythema or tenderness. EXTREMITIES: No cyanosis or clubbing. 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 BACK: No deformity, no pressure ulcer. GENITOURINARY: No dysuria or hematuria. Vital Sign (Last 12 Hours) 07/01/24 07/01/24 07/01/24 07/01/24 03:37 07:00 08:00 10:00 Temp 97.7 Pulse 75 74 Resp 18 19 B/P (MAP) 115/64 114/65 Pulse Ox 95 96 96 O2 Delivery Nasal Cannula Nasal Cannula* Nasal Cannula Nasal Cannula O2 Flow Rate 2.0 2 2.0 2.0 FiO2 28 07/01/24 07/01/24 07/01/24 07/01/24 10:15 10:30 10:45 11:00 Pulse 79 71 80 79 Resp 19 19 19 19 B/P (MAP) 105/60 108/59 105/63 115/65 Pulse Ox 97 97 98 97 O2 Delivery Nasal Cannula Nasal Cannula Nasal Cannula Nasal Cannula O2 Flow Rate 2.0 2.0 2.0 2.0 07/01/24 07/01/24 07/01/24 07/01/24 11:30 12:00 12:40 13:00 Temp 97.9 Pulse 80 95 74 85 Resp 19 19 14 19 B/P (MAP) 112/61 122/66 119/61 122/59 Pulse Ox 98 96 96 O2 Delivery Nasal Cannula Nasal Cannula Room Air Nasal Cannula O2 Flow Rate 2.0 2.0 2.0 Intake & Output (last 24hrs) 06/30/24 06/30/24 07/01/24 15:00 23:00 07:00 Intake Total 100.0 ml 200.0 ml Output Total 450 ml 1400 ml 1600 ml Balance -450 ml -1300.0 ml -1400.0 ml LABS: Laboratory: Test 07/01/24 11:49 07/01/24 04:03 06/30/24 20:52 06/30/24 15:20 Range/Units Whole Blood Glucose 139 #H 70-110 MG/DL White Blood Count 11.7 H 4.8-10.8 K/uL Red Blood Count 3.23 L 4.50-6.20 MIL/uL Hemoglobin 9.6 L 14.0-18.0 g/dL Hematocrit 27.4 L 42-54 % Mean Corpuscular Volume 84.8 79-99 fL Mean Corpuscular Hemoglobin 29.7 27.0-33.0 pg Mean Corpuscular Hemoglobin Concent 35.0 32.0-36.0 g/dL Red Cell Distribution Width 15.8 H 11.0-15.5 % Platelet Count 390 130-400 K/uL Mean Platelet Volume 11.6 H 7.5-10.5 fL Segmented Neutrophils % 96 H 40-70 % Lymphocytes % (Manual) 1 L 22-44 % Monocytes % (Manual) 3 2-9 % Nucleated Red Blood Cells 0.0 0.0-0.19 % Differential Comment MANUAL DIFFERENTIAL White Cell Morphology Comment See comments Platelet Morphology Comment ADEQUATE Red Blood Cell Morphology See comments Prothrombin Time 17.8 H 9.6-11.6 SEC Prothromb Time International Ratio 1.78 H 0.85-1.15 Activated Partial Thromboplast Time 39.4 H 26.3-35.5 SEC Sodium Level 134 L 136-145 mmol/L Potassium Level 3.0 *L 3.5-5.1 mmol/L Chloride Level 94 L 101-111 mmol/L Carbon Dioxide Level 24 21-32 mmol/L Blood Urea Nitrogen 138 *H 7-18 mg/dL Creatinine 6.2 H 0.5-1.3 mg/dL Glomerular Filtration Rate Calc 9 >90 mL/min Random Glucose 90 # 70-105 mg/dL Total Calcium 7.3 L 8.5-10.1 mg/dL Phosphorus Level 8.1 H 2.5-4.9 mg/dL Magnesium Level 1.90 1.80-2.40 mg/dL Total Bilirubin 0.7 0.2-1.0 mg/dL Aspartate Amino Transf (AST/SGOT) 23 10-37 U/L Alanine Aminotransferase (ALT/SGPT) 18 12-78 U/L Alkaline Phosphatase 154 H 50-136 U/L Total Protein 5.7 L 6.0-8.3 g/dL Albumin 2.3 L 3.5-5.0 g/dL Bedside Glucose Comment Notified Nurse Hemoglobin A1c 7.4 H 4.0-6.0 % Estimated Average Glucose (eAG) 166 H 70-126 mg/dL Iron Level 32 #L 65-175 mcg/dL Total Iron Binding Capacity 75 L 250-450 mcg/dL Percent Iron Saturation 42.6 30-44 % Ferritin 424 H 30-400 ng/mL Triglycerides Level 64 30-200 mg/dL Cholesterol Level 167 <200 mg/dL LDL Cholesterol 86 0-99 mg/dL HDL Cholesterol 33 29-71 mg/dL Hepatitis B Surface Antigen. Non-Reactive Nonreactive Hepatitis B Surface Antibody. Negative L Reactive Hepatitis B Core Total Antibody. Non-Reactive Nonreactive Hepatitis C Antibody Non-Reactive Nonreactive HIV (1&2) Antibody Non-Reactive Negative HIV P24 Antigen, Qualitative Non-Reactive Negative Test 06/30/24 09:16 Range/Units Immature Granulocyte % (Auto) 0.4 0-1 % Neutrophils (%) (Auto) 91.7 H 40.0-77.0 % Lymphocytes (%) (Auto) 3.2 L 21.0-51.0 % Monocytes (%) (Auto) 4.6 3.0-13.0 % Eosinophils (%) (Auto) 0.0 0.0-8.0 % Basophils (%) (Auto) 0.1 0.0-5.0 % Neutrophils # (Auto) 9.3 H 1.8-7.7 K/uL Lymphocytes # (Auto) 0.3 L 1.0-4.8 K/uL Monocytes # (Auto) 0.5 0.1-1.0 K/uL Eosinophils # (Auto) 0.00 0.00-0.70 K/uL Basophils # (Auto) 0.01 0.00-0.20 K/uL Absolute Immature Granulocyte (auto 0.04 0-1 K/uL ASSESSMENT: Fungemia. 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 Septic shock, resolving. Anemia requiring blood transfusion, status post EGD. Acute renal failure, new onset dialysis. PLAN: Continue tigecycline IV. Continue micafungin. Continue wound care. Service Dismantler following patient. Avoid nephrotoxic medications. Patient was referred to [facility] and has been approved. This case was reviewed and discussed with my supervising physician and the above assessment and plan was formulated and agreed upon. ATTESTATION BY PHYSICIAN I have seen and examined the patient. I reviewed the documentation, medical decision making, and treatment plan as noted by the mid-level provider above. I agree with the findings and plan of care. CECIL ROY MD, [facility] Jul 01, 2024 14:47
[2024-07-01] MEDS: 0.9%NACL 1000ML 1,000 ML IV SCH (15:15)
--- NOTE | 2024-07-01 15:23 | PN ---
[facility] PROGRESS NOTE Date of Service: Jul 01, 2024 Time of Service: 15:19 SUBJECTIVE: Patient is seen and examined at bedside, case discussed with the RN, during my visit the patient resting comfortably in bed, following simple commands, he is on blood pressure support with Levophed, getting sodium bicarbonate IV. BP 108/57, heart rate of 116, saturating 99% on 2 L nasal cannula. Hemoglobin 8.4, hematocrit 27.0, WBC 14.2, platelet count of 28. Sodium 143, potassium 5.0, bicarb of five, BUN 107, creatinine 9.7. ABG with pH of 7.8, pCO2 less than 15, bicarb of 2.3. 06/18 patient has been seen and examined at bedside, case discussed with the RN, patient remains confused, still on pressor support with Levophed and Andrew- Synephrine, patient also on sodium bicarbonate drip. No family members at bedside during my visit. Blood pressure 112/44, heart rate of 91, saturating 93%. CBC with WBC of 16.4, hemoglobin 8.2, hematocrit 23.7, platelet count of 27. Sodium 145, potassium 3.7, BUN of 102, creatinine 10.2, sodium bicarb of 12. ABG with pH of 7.33, pCO2 31, PO2 64, bicarb of 16.1. Septic workup reviewed, blood cultures no growth after 24 hours. Patient getting broad- spectrum IV antibiotics during my visit. CT of the abdomen pelvis probable mild enterocolitis with mild to moderate small and large bowel liquid content, cholelithiasis, urinary wall thickening, more than expected for empty urinary bladder. Mild distal colonic diverticulosis. 06/19 patient is seen and examined at bedside, case discussed with the RN, no acute events overnight, patient is still confused, however less compared to time of admission. Following very simple commands. He is currently off vasopressors. Replace, output since this morning 500 cc. Blood pressure 111/78, afebrile, saturating 96-98% 2 L nasal cannula. WBC trending down at 11.2, hemoglobin 7.6, hematocrit 20.9, platelet count of 14. BUN 108, creatini ne 10.2. ABG shows a pH 7.41, pCO2 37, PO2 81.5, bicarb 23.1. Blood culture showing Alicia tropicalis. Patient has been started on micafungin. Continue antibiotics. Continue critical care input and recommendation, continue Nephrology input and recommendation in terms of renal replacement therapy, continue daily weight, monitor intake and output. Follow anemia workup, stool o ccult blood, serial CBC transfuse 1 unit of PRBC hemoglobin less than seven, we will request Hematology consultation as well. 06/20 patient seen at bedside, no acute events overnight. He is not requiring pressors he is afebrile, hemodynamically stable saturating well on 2 L nasal cannula. Hemoglobin was 6.1 and platelets low at night, we will be transfused with packed red blood cells and platelets per critical Care, we will follow up post transfusion. Potassium decreased from 3.4 down to 3.2, creatinine stable at 10.2, we will follow up with Nephrology for recommendations. Urine output is improving, he has been started on Lasix, we will follow up. Patient continues on micafungin. Pt reticulocyte count low at 0.18 suggesting decreased production of RBC, FOBT positive as well concerning for GI Bleed. Will consult hematology and GI and follow up 06/21 patient seen at bedside, no acute events overnight. He has been afebrile, hemodynamically stable saturating well on 2 L nasal cannula. He has been NPO h owever he has no history of volume overload, and his kidney function is decreased, we will perfuse his kidneys with some IV fluids and allow clear liquid diet. Creatinine stable at 9.9, same as yesterday, potassium decreased at 3.0, nephrology to manage potassium levels until renal function improves. Hemoglobin improved from 8.0 up to 8.7, remainder of his labs are relatively unr emarkable. 06/22 Pt seen at bedside, no acute events overnight. He has been downgraded from ICU. He has been afebrile, hemodynamically stable, saturating well on room air. Hgb stable at 8.6, similar to yesterday, platelets decreased from 102 down to 82, potassium low at 2.7, will be repleted according to protocol, creatinine improved from 9.9 down to 8.5, sodium improved from 150 down to 146, remainder of his labs are relatively unremarkable. Urine output adequate, approximately 2.3L output in the last 24 hours. On physical exam, no evidence of volume overflow, will continue with IV fluids to perfuse his kidneys. Left foot gr owing mullins-resistant organism, ID to adjust antibiotics 06/23 patient seen at bedside, no acute events overnight. He is pending EGD with GI today, we will follow up postprocedure. He has been afebrile, hemodynamically stable, mildly hypertensive with systolics in the 150s, saturating well on 3 L nasal cannula. Hemoglobin improved from 8.6 up to 9.0, platelets decreased from 82 down to 78, creatinine continues to improve from 8.5 down to 7.2 with adequate urine output. Potassium low at 3.1, we will be rep leted according to potassium protocol. Patient weak and feeble, we will likely need transitioned to residential facility, case management to assist with placement. He will continue daily physical therapy. 06/24 patient seen at bedside, no acute events overnight. EGD was done yesterday no evidence of bleed noted. Patient refusing colonoscopy. Hgb is uptrending from 9.0 up to 9.3 suggesting resolution of GI bleed, platelets improved from 78 up to 87, creatinine improved from 7.2 down to 6.4, potassium low at 3.4, will be repleted according to protocol. Patient will need placement for IV antibiotics 06/25 patient seen at bedside, no acute events overnight. Continues to refuse colonoscopy yesterday he went into AFib with RVR was started on IV amiodarone. He was rate controlled today, likely we will be transitioned to p.o. amiodarone. Now pending placement to continue IV antibiotic and antifungal therapy. We will follow up with case management and Cardiology. Creatinine improved from 6.4 down to 5.9, BUN still elevated at 112. Potassium low at 2.9 will be repleted according to protocol and will give an extra 80meq supplementation. 06/26 patient seen at bedside, no acute events overnight. He has been afebrile, hemodynamically stable saturating well on room air. WBC increased from 11.3 up to 13.1, hemoglobin stable at 9.7, same as yesterday, creatinine stable at 5.9, same as yesterday, BUN increased from 112 up to 117, remainder of his labs are relatively unremarkable. Proximally 1.1 L urine output in the last 24 hours. He is pending placement 06/27 Pt seen at bedside, no acute events overnight. He remains stable, vitals u nremarkable. Pending placement 06/28 patient seen at bedside, no acute events overnight. His urine output has been decreasing, his BUN is up trending and his creatinine stable at 5.9. Discuss with Nephrology and we will hold the IV fluids and start a short course of Lasix to see his response. If he does not improve he may end up needing renal replacement therapy. Remainder of his vitals and labs are unremarkable. 06/29 seen at bedside, no acute events overnight. He was started on Lasix yesterday, diuresed proximally 1.4 L and is -992 mL over the last 24 hours. He still appears fluid overloaded. BUN continues to uptrend, creatinine stable at 6.0, similar to yesterday. Continue to monitor renal function, if it continues to deteriorate or urine output decreases, he may need renal replacement therapy. 06/30 patient seen at bedside, no acute events overnight. Renal function cont inues to deteriorate, nephrology spoke with the patient about worsening renal function and the patient has agreed to transition to dialysis, will follow up with nephrology. 07/01 patient seen at bedside, no acute events overnight. He was in agreement to begin dialysis he will be taken for PermCath placement today and start his 1st session, venous mapping we will be done and CV surgery has been consulted for AV fistula occlusion. Patient's potassium low at 3.0, we will hold off on repletion due to renal dysfunction and defer to Nephrology for management of the electrolytes. Creatinine stable at 6.2, same as yesterday. WBC increased from 10.2 up to 11.7, hemoglobin decreased from 10.8 down to 9.6, remainder of his labs are relatively unremarkable. REVIEW OF SYSTEMS 12 point review of systems negative unless noted in HPI PHYSICAL EXAM GENERAL APPEARANCE: The patient remains confused. Withdrawing to painful stimulation. NEUROLOGICAL: Cranial nerves II-XII grossly intact. Motor is 5/5 in bilateral upper and lower extremities proximal to distal. No sensory deficits. HEENT: Face is symmetric. Pupils are equal and reactive. Extraocular movements are intact. NECK: Supple. No JVD. No thyromegaly. No submental, submandibular, pre- /postauricular, occipital or supraclavicular lymphadenopathy. CHEST: Normal chest expansion. No Telemetry. LUNGS: Absence of any rales, rhonchi or any wheezing. CARDIOVASCULAR: Regular. S1 and S2 normal. No appreciable rubs, murmurs or gallops. ABDOMEN: Soft, nontender, and nondistended. There is no rebound, voluntary guarding, or rigidity. : Deferred. No Gallagher. EXTREMITIES: Non-edematous and not cyanotic. No clubbing. Good capillary refill. SKIN: No skin breakdown. Vital Signs (last 8hr) Date Time Temp Pulse Resp B/P (MAP) Pulse Ox O2 Delivery O2 Flow Rate FiO2 07/01/24 13:00 85 19 122/59 96 Nasal Cannula 2.0 07/01/24 12:40 97.9 74 14 119/61 Room Air 07/01/24 12:00 95 19 122/66 96 Nasal Cannula 2.0 07/01/24 11:30 80 19 112/61 98 Nasal Cannula 2.0 07/01/24 11:00 79 19 115/65 97 Nasal Cannula 2.0 07/01/24 10:45 80 19 105/63 98 Nasal Cannula 2.0 07/01/24 10:30 71 19 108/59 97 Nasal Cannula 2.0 07/01/24 10:15 79 19 105/60 97 Nasal Cannula 2.0 07/01/24 10:00 74 19 114/65 96 Nasal Cannula 2.0 07/01/24 08:00 Nasal Cannula 2.0 LABS: Laboratory: Test 07/01/24 11:49 07/01/24 04:03 06/30/24 20:52 06/30/24 15:20 Range/Units Whole Blood Glucose 139 #H 70-110 MG/DL White Blood Count 11.7 H 4.8-10.8 K/uL Red Blood Count 3.23 L 4.50-6.20 MIL/uL Hemoglobin 9.6 L 14.0-18.0 g/dL Hematocrit 27.4 L 42-54 % Mean Corpuscular Volume 84.8 79-99 fL Mean Corpuscular Hemoglobin 29.7 27.0-33.0 pg Mean Corpuscular Hemoglobin Concent 35.0 32.0-36.0 g/dL Red Cell Distribution Width 15.8 H 11.0-15.5 % Platelet Count 390 130-400 K/uL Mean Platelet Volume 11.6 H 7.5-10.5 fL Segmented Neutrophils % 96 H 40-70 % Lymphocytes % (Manual) 1 L 22-44 % Monocytes % (Manual) 3 2-9 % Nucleated Red Blood Cells 0.0 0.0-0.19 % Differential Comment MANUAL DIFFERENTIAL White Cell Morphology Comment See comments Platelet Morphology Comment ADEQUATE Red Blood Cell Morphology See comments Prothrombin Time 17.8 H 9.6-11.6 SEC Prothromb Time International Ratio 1.78 H 0.85-1.15 Activated Partial Thromboplast Time 39.4 H 26.3-35.5 SEC Sodium Level 134 L 136-145 mmol/L Potassium Level 3.0 *L 3.5-5.1 mmol/L Chloride Level 94 L 101-111 mmol/L Carbon Dioxide Level 24 21-32 mmol/L Blood Urea Nitrogen 138 *H 7-18 mg/dL Creatinine 6.2 H 0.5-1.3 mg/dL Glomerular Filtration Rate Calc 9 >90 mL/min Random Glucose 90 # 70-105 mg/dL Total Calcium 7.3 L 8.5-10.1 mg/dL Phosphorus Level 8.1 H 2.5-4.9 mg/dL Magnesium Level 1.90 1.80-2.40 mg/dL Total Bilirubin 0.7 0.2-1.0 mg/dL Aspartate Amino Transf (AST/SGOT) 23 10-37 U/L Alanine Aminotransferase (ALT/SGPT) 18 12-78 U/L Alkaline Phosphatase 154 H 50-136 U/L Total Protein 5.7 L 6.0-8.3 g/dL Albumin 2.3 L 3.5-5.0 g/dL Bedside Glucose Comment Notified Nurse Hemoglobin A1c 7.4 H 4.0-6.0 % Estimated Average Glucose (eAG) 166 H 70-126 mg/dL Iron Level 32 #L 65-175 mcg/dL Total Iron Binding Capacity 75 L 250-450 mcg/dL Percent Iron Saturation 42.6 30-44 % Ferritin 424 H 30-400 ng/mL Triglycerides Level 64 30-200 mg/dL Cholesterol Level 167 <200 mg/dL LDL Cholesterol 86 0-99 mg/dL HDL Cholesterol 33 29-71 mg/dL Hepatitis B Surface Antigen. Non-Reactive Nonreactive Hepatitis B Surface Antibody. Negative L Reactive Hepatitis B Core Total Antibody. Non-Reactive Nonreactive Hepatitis C Antibody Non-Reactive Nonreactive HIV (1&2) Antibody Non-Reactive Negative HIV P24 Antigen, Qualitative Non-Reactive Negative Test 06/30/24 09:16 Range/Units Immature Granulocyte % (Auto) 0.4 0-1 % Neutrophils (%) (Auto) 91.7 H 40.0-77.0 % Lymphocytes (%) (Auto) 3.2 L 21.0-51.0 % Monocytes (%) (Auto) 4.6 3.0-13.0 % Eosinophils (%) (Auto) 0.0 0.0-8.0 % Basophils (%) (Auto) 0.1 0.0-5.0 % Neutrophils # (Auto) 9.3 H 1.8-7.7 K/uL Lymphocytes # (Auto) 0.3 L 1.0-4.8 K/uL Monocytes # (Auto) 0.5 0.1-1.0 K/uL Eosinophils # (Auto) 0.00 0.00-0.70 K/uL Basophils # (Auto) 0.01 0.00-0.20 K/uL Absolute Immature Granulocyte (auto 0.04 0-1 K/uL Current Medications Medications (Trade) Dose Ordered Sig/Roderick Route PRN Reason Start Time Stop Time Status Last Admin Dose Admin Albuterol Sulfate (Proventil 0.083% 2.5mg/3ml) 10 mg ONCE STAT IH 06/17/24 04:05 06/17/24 04:12 DC 06/17/24 04:31 10 MG Amiodarone HCl 360 mg/Dextrose 200 ml @ 0 mls/hr PROTOCOL IV 06/24/24 14:30 06/25/24 09:16 DC 06/24/24 15:51 33.33 MLS/HR Amiodarone HCl 540 mg/Dextrose 300 ml @ 0 mls/hr PROTOCOL IV 06/24/24 21:00 07/24/24 20:59 06/24/24 20:42 16.7 MLS/HR Amlodipine Besylate (NorvASC 5MG TAB) 5 mg BID PO 06/22/24 09:00 07/22/24 08:59 06/30/24 21:37 5 MG Apixaban (EliquIS) 5 mg BID PO 06/24/24 14:30 06/30/24 19:54 DC 06/30/24 11:10 5 MG Calcium Carbonate (Tums 500 Mg Chew Tab) 500 tab ONCE PO 06/26/24 15:30 07/26/24 15:29 Cancel Calcium Carbonate (Tums 500 Mg Chew Tab) 500 tab Q6H6 PRN PO GI UPSET/UPSET STOMACH 06/28/24 12:00 07/28/24 11:59 06/30/24 21:37 1 TAB Calcium Gluconate (Calcium Gluc 1gm Vial) 1 gm AD STAT IV 06/17/24 04:05 06/17/24 04:12 DC 06/17/24 04:21 1 GM Cefepime HCl (MAXipime 1 GM vial) 0.25 gm Q24H IVPB 06/17/24 04:00 06/18/24 04:06 DC 06/17/24 04:58 0.25 GM Cefepime HCl (MAXipime 1 GM vial) 1 gm Q24H IVPB 06/20/24 05:00 06/22/24 16:09 DC 06/22/24 03:12 1 GM Cefepime HCl 0.25 gm/Sodium Chloride 50 ml @ 100 mls/hr Q24H IVPB 06/18/24 04:30 06/19/24 10:58 DC 06/19/24 05:26 100 MLS/HR Dextrose (D50w) 50 ml AD PRN IV HYPOGLYCEMIA PROTOCOL 06/17/24 01:00 06/17/24 01:01 DC Dextrose (D50w) 50 ml AD PRN IV HYPOGLYCEMIA PROTOCOL 06/17/24 01:00 07/17/24 00:59 Dextrose (D50w) 50 ml ONCE STAT IV 06/17/24 04:05 06/17/24 04:12 DC 06/17/24 04:21 50 ML Epoetin Rylan-epbx (Retacrit) 10,000 unit [id number] SQ 06/24/24 14:00 06/24/24 13:53 DC Epoetin Rylan-epbx (Retacrit) 10,000 unit QMOWEFR@1600 SQ 06/29/24 15:00 07/29/24 14:59 06/29/24 15:21 10,000 UNIT Epoetin Rylan-epbx (Retacrit) 10,000 unit QWEEK SQ 06/24/24 14:00 06/29/24 14:23 DC 06/24/24 14:37 10,000 UNIT Famotidine (Pepcid 20mg Vial) 20 mg Q48H IV 06/17/24 01:00 07/17/24 00:59 07/01/24 01:35 20 MG Folic Acid (FOLic ACID 1 MG TABLET) 1 mg DAILY PO 06/25/24 09:00 07/25/24 08:59 06/30/24 11:08 1 MG Furosemide (LASix 40MG VIAL) 40 mg Q12H IV 06/28/24 21:00 07/28/24 20:59 06/30/24 21:37 40 MG Furosemide (LASix 40MG VIAL) 40 mg Q8H IV 06/19/24 18:30 06/20/24 18:31 DC 06/20/24 18:54 40 MG Glucagon (Glucagon 1mg Kit) 1 mg AD PRN IM HYPOGLYCEMIA PROTOCOL 06/17/24 01:00 06/17/24 01:01 DC Glucagon (Glucagon 1mg Kit) 1 mg AD PRN IM HYPOGLYCEMIA PROTOCOL 06/17/24 01:00 07/17/24 00:59 Heparin Sodium (Porcine) (HEParin 5,000 UNIT VIAL) 10,000 unit AD IRRIG 07/01/24 14:00 07/31/24 13:59 Hydralazine HCl (BTMTGSOdbz24OH TAB) 25 mg TID PO 06/22/24 09:00 07/22/24 08:59 06/30/24 21:37 25 MG Hydrocortisone Sodium Succinate (Solu-corTEF 100MG) 50 mg ONCE@1930 IV 06/22/24 19:30 06/22/24 22:30 DC 06/22/24 19:59 50 MG Hydrocortisone Sodium Succinate (Solu-corTEF 100MG) 50 mg Q8H IV 06/18/24 11:30 06/22/24 15:46 DC 06/22/24 03:12 50 MG Hydrocortisone Sodium Succinate (Solu-corTEF 100MG) 50 mg Q8H6 IV 06/23/24 06:00 07/23/24 05:59 07/01/24 06:27 50 MG Hydromorphone HCl (DiLAUDid 0.5MG INJ) 0.5 mg Q4H PRN IVP SEVERE PAIN (7-10) 06/20/24 13:00 06/25/24 12:59 DC 06/21/24 23:50 0.5 MG Insulin Human Regular (humuLIN R 100 UNIT/ML 3ML) 10 unit ONCE STAT IV 06/17/24 04:05 06/17/24 04:12 DC 06/17/24 04:28 10 UNIT Insulin Human Regular (humuLIN R 100 UNIT/ML 3ML) INSULIN SLIDING SCAL... ACHS SQ 06/17/24 07:30 07/17/24 07:29 06/30/24 21:56 4 UNIT Lactated Ringer's 1,000 ml @ 130 mls/hr Q7H42M IV 06/21/24 09:30 06/28/24 09:51 DC 06/28/24 09:03 130 MLS/HR Lactobacillus Rhamnosus ([facility] [employer]) 1 each BID PO 06/28/24 10:00 07/28/24 09:59 06/30/24 21:37 1 EACH Leptospermum Honey (Medihoney) 1 appl DAILY TP 06/19/24 09:00 07/19/24 08:59 06/30/24 09:00 1 APPL Magnesium Sulfate 50 ml @ 0 mls/hr PROTOCOL PRN IV MAGNESIUM PROTOCOL 06/23/24 11:30 07/23/24 11:29 06/29/24 15:22 25 MLS/HR Metoprolol Tartrate (loprESSOR) 25 mg BID PO 06/24/24 14:30 07/24/24 14:29 06/30/24 21:37 25 MG Metronidazole/ Sodium Chloride (flaGYL) 500 mg Q8H IV 06/17/24 05:00 06/27/24 04:59 DC 06/26/24 21:48 500 MG Micafungin Sodium 100 ml @ 100 mls/hr Q24H IV 06/18/24 00:00 07/18/24 00:00 07/01/24 01:35 100 MLS/HR Morphine Sulfate (morPHINE 2MG SYG) 2 mg Q4H PRN IVP SEVERE PAIN (7-10) 06/29/24 00:30 07/06/24 00:29 07/01/24 01:35 2 MG Norepinephrine 250 ml @ 0 mls/hr PROTOCOL IV 06/16/24 22:00 06/22/24 07:20 DC 06/17/24 05:33 24.5 MLS/HR Ondansetron HCl (zoFRAN 4MG INJ) 4 mg Q6H PRN IVP NAUSEA/VOMITING 06/23/24 20:30 07/23/24 20:29 06/30/24 21:38 4 MG Pharmacy Profile Note (Lace Assessment) 1 each AD MISC 06/19/24 15:30 06/20/24 12:49 DC Pharmacy Profile Note (Pharmacy Communication) 1 each ONCE MISC 06/17/24 23:00 06/19/24 07:13 DC 06/17/24 23:31 1 EACH Pharmacy Profile Note (Pharmacy Communication) 1 each ONCE MISC 06/22/24 16:30 06/23/24 07:22 DC Pharmacy Profile Note (Pharmacy Communication) 1 each ONCE MISC 06/30/24 12:30 06/30/24 12:08 DC Pharmacy Profile Note (Pharmacy Communication) 1 each ONCE MISC 06/30/24 14:30 06/30/24 14:16 DC Phenylephrine HCl 100 mg/Sodium Chloride 250 ml @ 0 mls/hr AD PRN IV TITRATE 06/17/24 10:30 06/22/24 07:20 DC 06/18/24 05:48 27 MLS/HR Piperacillin Sod/ Tazobactam Sod (Zosyn 3.375gm+NS 50ml) 3.375 gm Q12H IV 06/16/24 21:30 06/17/24 01:03 DC 06/16/24 21:42 3.375 GM Piperacillin Sod/ Tazobactam Sod (Zosyn 3.375gm+NS 50ml) 3.375 gm Q12H IVPB 06/17/24 01:00 06/17/24 04:00 DC 06/17/24 02:54 3.375 GM Potassium Chloride 100 ml @ 100 mls/hr AD PRN IV POTASSIUM PROTOCOL 06/21/24 08:00 07/21/24 07:59 07/01/24 05:21 100 MLS/HR Potassium Chloride 100 ml @ 100 mls/hr AD PRN IV POTASSIUM PROTOCOL 06/23/24 11:30 07/23/24 11:29 Potassium Chloride (K-Dur/Klor-Con 20meq) 20 meq AD PRN PO POTASSIUM PROTOCOL 06/23/24 11:30 07/23/24 11:29 06/29/24 15:19 20 MEQ Potassium Chloride (K-Dur/Klor-Con 20meq) 40 meq BID PO 06/22/24 09:00 06/22/24 21:01 DC 06/22/24 19:54 40 MEQ Potassium Chloride (K-Dur/Klor-Con 20meq) 40 meq BID PO 06/25/24 09:00 06/28/24 09:51 DC 06/27/24 09:23 40 MEQ Potassium Chloride (KCl 10% Elixir 20meq/15ml) 20 meq AD PRN PO POTASSIUM PROTOCOL 06/23/24 11:30 07/23/24 11:29 Sodium Bicarbonate / Dextrose 1,000 ml @ 0 mls/hr Q0M IVP 06/17/24 05:00 06/17/24 04:58 DC Sodium Bicarbonate 150 meq/Dextrose 1,150 ml @ 50 mls/hr Q23H IVP 06/18/24 08:00 06/19/24 12:24 DC 06/18/24 20:23 100 MLS/HR Sodium Bicarbonate 150 meq/Dextrose 1,150 ml @ 100 mls/hr [id number] IVP 06/17/24 05:00 06/18/24 04:44 DC 06/17/24 21:00 100 MLS/HR Sodium Polystyrene Sulfonate (kayEXALate 15 GM/60 ML) 15 gm Q2H PO 06/16/24 21:30 06/16/24 23:31 DC 06/16/24 22:21 15 GM Sodium Chloride 1,000 ml @ 0 mls/hr ONCE IV 07/01/24 14:00 07/31/24 13:59 07/01/24 15:15 100 MLS/HR Sodium Chloride 1,000 ml @ 150 mls/hr Q6H40M IV 06/16/24 23:00 06/17/24 09:10 DC 06/17/24 05:15 150 MLS/HR Sodium Chloride (NS 50ml) 50 ml AD IV 06/17/24 01:00 06/17/24 01:05 DC Sucralfate (Carafate) 1 gm BID PO 06/28/24 12:30 06/28/24 22:30 DC 06/28/24 20:56 1 GM Thiamine HCl (Vitamin B-1) 100 mg DAILY IVP 06/17/24 09:00 07/17/24 08:59 06/30/24 11:09 100 MG Tigecycline 100 mg/Sodium Chloride 100 ml @ 200 mls/hr ONCE IV 06/22/24 16:30 06/23/24 07:21 DC 06/22/24 18:51 200 MLS/HR Tigecycline 50 mg/ Sodium Chloride 100 ml @ 200 mls/hr BID@0600,1800 IV 06/23/24 06:00 06/30/24 05:59 DC 06/29/24 17:57 200 MLS/HR Tigecycline 50 mg/ Sodium Chloride 100 ml @ 200 mls/hr BID@0600,1800 IV 06/30/24 18:00 06/30/24 19:53 DC 06/30/24 19:50 200 MLS/HR Tigecycline 50 mg/ Sodium Chloride 100 ml @ 200 mls/hr BID@0800,2000 IV 07/01/24 08:00 07/10/24 07:59 Vancomycin HCl (Vancomycin 750mg) 750 mg Q96H IVPB 06/20/24 22:00 06/17/24 14:00 DC Vancomycin HCl (Vancomycin Protocol) 1 each AD IV 06/17/24 01:30 06/17/24 14:01 DC Vitamin B Complex/ Vit C/Folic Acid (Nephrovite Tablet) 1 cap DAILY PO 06/24/24 09:00 07/24/24 08:59 06/30/24 11:10 1 CAP Wound Care/ Dressing Products (Venelex Ointment) 1 APPL BID TP 06/28/24 21:00 07/28/24 20:59 06/30/24 21:38 1 GM DIAGNOSTICS / RADIOLOGY: [ ] ASSESSMENT: Severe metabolic acidosis, resolved POA Septic shock requiring vasopressor, resolved POA Paroxysmal afib with RVR, rate controlled Fungemia 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, POA Acute on chronic renal failure, progressing to ESRD POA New onset ESRD needing dialysis Hyperkalemia POA Chronic anemia POA Acute thrombocytopenia POA Failure to thrive POA Acute encephalopathy, improving DM2 last A1c 7.3 Dyslipidemia Peripheral artery disease Osteomyelitis with recent 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 Nephrology consulted, appreciate recommendations Stop LR @ 130 cc/hr Start furosemide 40mg IV BID Continue clear liquid diet, will advance tomorrow GI consulted, appreciate recommendations Hematology consulted, appreciate recommendations Anemia workup. Transfuse as needed. Hematology consultation requested per Follow critical care input and recommendation Disposition: Pending dialysis, AV fistula creation, placement AL CARDONA MD Jul 01, 2024 15:23
--- NOTE | 2024-07-01 19:41 | HMCIMG ---
US VEIN MAPPING UNI/LTD HISTORY: Preop COMPARISON: None TECHNIQUE: Ultrasound upper extremity venous mapping study was performed for hemodialysis access. FINDINGS: Left cephalic vein High upper arm: 12 x 2 millimeter Mid upper arm: 9 x 2 millimeter Low upper arm: 4 x 2 millimeter High forearm: 7 x 1 millimeter Mid forearm: 8 x 2 millimeter Low forearm: 2 x 2 millimeter Left basilic vein Upper arm: 15 x 3 millimeter Lower arm: 14 x 2 millimeter Antecubital fossa: 7 x 2 millimeter IMPRESSION: 1. Ultrasound upper extremity venous mapping study as described above.
--- NOTE | 2024-07-01 22:14 | PN ---
SUBJECTIVE: The patient has been evaluated, seen for dialysis and seen multiple times. First-time dialysis is being done. The patient has significant anemia, uremia, and electrolyte problem. He continues with some mental status changes. The patient has no fevers, chills, or rigors. PHYSICAL EXAMINATION: VITAL SIGNS: Blood pressure is 128/59, pulse 77, respiratory rate is 14. HEENT: Head is atraumatic. Pupils are round and reactive. Sclerae are anicteric. Conjunctivae not pale. Oral mucosa is not dry. NECK: Supple. No masses or bruits. Thyroid is palpable. Neck has no bruits. CHEST: Shows equal thoracic percussion note being resonant in all areas. CARDIAC: Regular rhythm. No rub, no S3 or S4, no parasternal heave. LABORATORY DATA: We have reviewed the labs in detail with low potassium of 3, elevated BUN of 130, creatinine 6.2. PROBLEMS: Renal failure, anemia, diabetes, and anasarca. PLAN: We have initiated dialysis, seen for dialysis several times. Condition remained guarded. The patient has been on broad-spectrum antibiotic, Epogen as needed. Diuretics can be soon stopped. He has anasarca. He has atrial fibrillation also, will need followup on that. The patient has been on antifungal treatment with micafungin also. TID: [id number] RECEIPT: [id number]
--- NOTE | 2024-07-01 22:16 | PN ---
NEPHROLOGY NOTE SUBJECTIVE: The patient has been evaluated and seen several times on dialysis. The patient is critically ill. No other associated findings. No other aggravating or relieving factors. PHYSICAL EXAMINATION GENERAL: Pale, no other distress or deformities, lying in bed. VITAL SIGNS: Blood pressure is 118/70, respiratory rate is 18. Afebrile. HEENT: Head is atraumatic. Pupils are round and reactive. Sclerae are anicteric. Conjunctivae not pale. Oral mucosa is not dry. NECK: Supple. No masses or bruits. Thyroid is palpable. LABORATORY DATA: Labs have been reviewed. The patient remains confused. PROBLEMS: Renal failure, anemia, encephalopathy. PLAN: Dialysis to continue. Monitoring of renal function and electrolyte. The patient was evaluated and seen for dialysis multiple times. I have discussed with other team physicians and we will follow up closely. Condition remained guarded. Thank you for this patient. TID: [id number] RECEIPT: [id number]
--- NOTE | 2024-07-01 22:33 | PN ---
69-year-old male with past medical history of diabetes mellitus type 2, hypertension, ESRD (baseline Cr ~2.3, now up to 7.2�9.9, GFR ~5�8), osteomyelitis with history of multiple toe amputations, recent septic shock (now off vasopressors), and ongoing broad-spectrum antibiotic therapy. Patient is a poor historian and resides in a nursing facility. Per family, he was doing relatively well until ~1 week ago when he had decreased oral intake and developed progressive lethargy. He had a recent COVID infection three weeks ago, now resolved. He presented with acute encephalopathy, hyperkalemia, metabolic acidosis, and severe thrombocytopenia (initially 32K, now improving to 78K). Notable labs include chronic normocytic anemia (Hgb trending 6.1�9.0), thrombocytopenia (platelets aren 28K, now 78K), and pancytopenia picture. Peripheral smear shows hypochromia, rouleaux formation, hypersegmented neutrophils, no schistocytes or helmet cells. Reticulocyte count is low (0.18%), immature reticulocytes elevated (2%). Iron saturation is high (79.7%), with low TIBC (94), suggesting anemia of chronic disease or myelodysplasia. Platelet count today is 399K PHYSICAL EXAM GENERAL: No acute respiratory distress. VITAL SIGNS: Reviewed and stable. HEENT: The sclerae are clear. The pupils are equal and reactive to light. The oropharyngeal cavity is within normal limits. NECK: Supple without lymphadenopathy. CHEST: Lung is clear bilaterally there is no wheezing or crackles. HEART: Sounds are regular and rhythmic. ABDOMEN: No guarding or rigidity. Bowel sounds positive. NEUROLOGICAL: The patient is alert and oriented. No focal deficits. Patient with generalized weakness. LYMPH NODES: There is no lymphadenopathy could be felt in the neck, supraclavicular, or axillary. IMPRESSION 1. Normocytic normochromic anemia. Hemoglobin level 9.5 g/deciliter 2. Acute on chronic renal failure. Patient was evaluated by nephrology and there is plan for hemodialysis to be done. 3. Thrombocytopenia. Platelet count 399K 4. History of hypertension 5. Diabetes mellitus 6. Lower extremity osteomyelitis Plan 1. Peripheral blood smear showed rouleaux phenomena. SPEP and free light chain was ordered. If there is monoclonal protein we will do bone marrow biopsy. 2. Continue care as per nephrology. It seems there is no plan for hemodialysis at this time. 3. No need for blood product transfusion 4. Colonoscopy actually was done on this patient. Will follow-up with the result 5. There is plan for hemodialysis to be done for this patient. So this patient could receive his appropriate and iron study during hemodialysis. Vitals/Labs Vital Signs Date Time Temp Pulse Resp B/P (MAP) Pulse Ox O2 Delivery O2 Flow Rate FiO2 07/01/24 19:19 97.9 68 18 106/60 93 Room Air 07/01/24 16:00 2.0 07/01/24 07:00 28 Laboratory Tests 07/01/24 04:03 Medications Current Medications Sodium Chloride 1,000 ml @ 0 mls/hr ONCE ONCE IV Last administered on 06/16/24at 21:22; Start 06/16/24 at 21:30; Stop 06/16/24 at 21:31; Status DC Piperacillin Sod/ Tazobactam Sod 3.375 gm Q12H IV Last administered on 06/16/24at 21:42; Start 06/16/24 at 21:30; Stop 06/17/24 at 01:03; Status DC Vancomycin HCl 1 gm ONCE ONCE IV; Start 06/16/24 at 21:30; Stop 06/16/24 at 21:34; Status DC Enoxaparin Sodium 80 mg ONCE ONCE SQ Last administered on 06/16/24at 23:15; Start 06/16/24 at 21:30; Stop 06/16/24 at 21:46; Status DC Calcium Gluconate 1 gm/Sodium Chloride 110 ml @ 110 mls/hr ONCE ONCE IV Last administered on 06/16/24at 22:03; Start 06/16/24 at 21:30; Stop 06/16/24 at 22:29; Status DC Albuterol Sulfate 10 mg ONCE ONCE IH Last administered on 06/16/24at 21:53; Start 06/16/24 at 21:30; Stop 06/16/24 at 21:35; Status DC Sodium Polystyrene Sulfonate 15 gm Q2H PO Last administered on 06/16/24at 22:21; Start 06/16/24 at 21:30; Stop 06/16/24 at 23:31; Status DC Albuterol Sulfate 2.5 mg STK-MED ONCE IH; Start 06/16/24 at 21:34; Stop 06/16/24 at 21:34; Status DC Norepinephrine 250 ml @ 0 mls/hr PROTOCOL IV Last administered on 06/17/24at 05:33; Start 06/16/24 at 22:00; Stop 06/22/24 at 07:20; Status DC Vancomycin HCl 250 ml @ 125 mls/hr ONCE ONCE IV Last administered on 06/16/24at 22:21; Start 06/16/24 at 22:00; Stop 06/16/24 at 23:59; Status DC Sodium Zirconium Cyclosilicate 10 gm ONCE ONCE PO Last administered on 06/16/24at 23:13; Start 06/16/24 at 23:00; Stop 06/16/24 at 23:04; Status DC Sodium Chloride 1,000 ml @ 150 mls/hr Q6H40M IV Last administered on 06/17/24at 05:15; Start 06/16/24 at 23:00; Stop 06/17/24 at 09:10; Status DC Thiamine HCl 100 mg DAILY IVP Last administered on 06/30/24at 11:09; Start 06/17/24 at 09:00; Stop 07/17/24 at 08:59 Famotidine 20 mg Q48H IV Last administered on 07/01/24at 01:35; Start 06/17/24 at 01:00; Stop 07/17/24 at 00:59 Insulin Human Regular INSULIN SLIDING SCAL... ACHS SQ Last administered on 07/01/24at 20:14; Start 06/17/24 at 07:30; Stop 07/17/24 at 07:29 Dextrose 50 ml AD PRN IV; Start 06/17/24 at 01:00; Stop 07/17/24 at 00:59 Glucagon 1 mg AD PRN IM; Start 06/17/24 at 01:00; Stop 06/17/24 at 01:01; Status DC Piperacillin Sod/ Tazobactam Sod 3.375 gm Q12H IVPB Last administered on 06/17/24at 02:54; Start 06/17/24 at 01:00; Stop 06/17/24 at 04:00; Status DC Sodium Chloride 50 ml AD IV; Start 06/17/24 at 01:00; Stop 06/17/24 at 01:05; Status DC Vancomycin HCl 1.5 gm ONCE ONCE IV; Start 06/17/24 at 01:00; Stop 06/17/24 at 01:27; Status DC Dextrose 50 ml AD PRN IV; Start 06/17/24 at 01:00; Stop 06/17/24 at 01:01; Status DC Glucagon 1 mg AD PRN IM; Start 06/17/24 at 01:00; Stop 07/17/24 at 00:59 Vancomycin HCl 1 each AD IV; Start 06/17/24 at 01:30; Stop 06/17/24 at 14:01; Status DC Vancomycin HCl 750 mg Q96H IVPB; Start 06/20/24 at 22:00; Stop 06/17/24 at 14:00; Status DC Sodium Chloride 1,368 ml @ 456 mls/hr ONCE ONCE IV Last administered on 06/17/24at 02:55; Start 06/17/24 at 02:00; Stop 06/17/24 at 04:59; Status DC Sodium Bicarbonate 100 meq ONCE ONCE IV Last administered on 06/17/24at 02:54; Start 06/17/24 at 02:00; Stop 06/17/24 at 02:02; Status DC Cefepime HCl 0.25 gm Q24H IVPB Last administered on 06/17/24at 04:58; Start 06/17/24 at 04:00; Stop 06/18/24 at 04:06; Status DC Insulin Human Regular 10 unit ONCE STAT IV Last administered on 06/17/24at 04:28; Start 06/17/24 at 04:05; Stop 06/17/24 at 04:12; Status DC Dextrose 50 ml ONCE STAT IV Last administered on 06/17/24at 04:21; Start 06/17/24 at 04:05; Stop 06/17/24 at 04:12; Status DC Calcium Gluconate 1 gm AD STAT IV Last administered on 06/17/24at 04:21; Start 06/17/24 at 04:05; Stop 06/17/24 at 04:12; Status DC Albuterol Sulfate 10 mg ONCE STAT IH Last administered on 06/17/24at 04:31; Start 06/17/24 at 04:05; Stop 06/17/24 at 04:12; Status DC Metronidazole/ Sodium Chloride 500 mg Q8H IV Last administered on 06/26/24at 21:48; Start 06/17/24 at 05:00; Stop 06/27/24 at 04:59; Status DC Sodium Bicarbonate 50 meq ONCE ONCE IV Last administered on 06/17/24at 04:58; Start 06/17/24 at 05:00; Stop 06/17/24 at 05:01; Status DC Sodium Bicarbonate / Dextrose 1,000 ml @ 0 mls/hr Q0M IVP; Start 06/17/24 at 05:00; Stop 06/17/24 at 04:58; Status DC Sodium Bicarbonate 150 meq/Dextrose 1,150 ml @ 100 mls/hr [id number] IVP Last administered on 06/17/24at 21:00; Start 06/17/24 at 05:00; Stop 06/18/24 at 04:44; Status DC Sodium Bicarbonate 100 meq ONCE ONCE IV Last administered on 06/17/24at 10:19; Start 06/17/24 at 10:00; Stop 06/17/24 at 10:01; Status DC Phenylephrine HCl 100 mg/Sodium Chloride 250 ml @ 0 mls/hr AD PRN IV Last administered on 06/18/24at 05:48; Start 06/17/24 at 10:30; Stop 06/22/24 at 07:20; Status DC Magnesium Sulfate 50 ml @ As Directed STK-MED ONCE IV Last administered on 06/17/24at 16:03; Start 06/17/24 at 15:59; Stop 06/17/24 at 16:00; Status DC Pharmacy Profile Note 1 each ONCE MISC Last administered on 06/17/24at 23:31; Start 06/17/24 at 23:00; Stop 06/19/24 at 07:13; Status DC Micafungin Sodium 100 ml @ 100 mls/hr Q24H IV Last administered on 07/01/24at 01:35; Start 06/18/24 at 00:00; Stop 07/18/24 at 00:00 Cefepime HCl 0.25 gm/Sodium Chloride 50 ml @ 100 mls/hr Q24H IVPB Last administered on 06/19/24at 05:26; Start 06/18/24 at 04:30; Stop 06/19/24 at 10:58; Status DC Sodium Bicarbonate 150 meq/Dextrose 1,150 ml @ 50 mls/hr Q23H IVP Last administered on 06/18/24at 20:23; Start 06/18/24 at 08:00; Stop 06/19/24 at 12:24; Status DC Hydrocortisone Sodium Succinate 50 mg Q8H IV Last administered on 06/22/24at 03:12; Start 06/18/24 at 11:30; Stop 06/22/24 at 15:46; Status DC Leptospermum Honey 1 appl DAILY TP Last administered on 06/30/24at 09:00; Start 06/19/24 at 09:00; Stop 07/19/24 at 08:59 Furosemide 40 mg ONCE ONCE IV Last administered on 06/18/24at 21:50; Start 06/18/24 at 20:30; Stop 06/18/24 at 20:34; Status DC Cefepime HCl 1 gm Q24H IVPB Last administered on 06/22/24at 03:12; Start 06/20/24 at 05:00; Stop 06/22/24 at 16:09; Status DC Furosemide 60 mg ONCE ONCE IV Last administered on 06/19/24at 11:55; Start 06/19/24 at 11:30; Stop 06/19/24 at 11:31; Status DC Potassium Chloride 100 ml @ 50 mls/hr ONCE ONCE IV Last administered on 06/19/24at 13:56; Start 06/19/24 at 12:30; Stop 06/19/24 at 14:29; Status DC Epoetin Rylan-epbx 10,000 unit ONCE ONCE SQ Last administered on 06/19/24at 16:45; Start 06/19/24 at 16:00; Stop 06/19/24 at 16:01; Status DC Pharmacy Profile Note 1 each AD MISC; Start 06/19/24 at 15:30; Stop 06/20/24 at 12:49; Status DC Furosemide 40 mg Q8H IV Last administered on 06/20/24at 18:54; Start 06/19/24 at 18:30; Stop 06/20/24 at 18:31; Status DC Potassium Chloride 100 ml @ As Directed STK-MED ONCE IV Last administered on 06/20/24at 12:17; Start 06/20/24 at 12:11; Stop 06/20/24 at 12:11; Status DC Hydromorphone HCl 0.5 mg Q4H PRN IVP Last administered on 06/21/24at 23:50; Start 06/20/24 at 13:00; Stop 06/25/24 at 12:59; Status DC Hydromorphone HCl 0.5 mg STK-MED ONCE .ROUTE; Start 06/20/24 at 12:48; Stop 06/20/24 at 12:52; Status DC Potassium Chloride 100 ml @ 100 mls/hr AD PRN IV Last administered on 07/01/24at 05:21; Start 06/21/24 at 08:00; Stop 07/21/24 at 07:59 Lactated Ringer's 1,000 ml @ 130 mls/hr Q7H42M IV Last administered on 06/28/24at 09:03; Start 06/21/24 at 09:30; Stop 06/28/24 at 09:51; Status DC Amlodipine Besylate 5 mg BID PO Last administered on 06/30/24at 21:37; Start 06/22/24 at 09:00; Stop 07/22/24 at 08:59 Hydralazine HCl 25 mg TID PO Last administered on 07/01/24at 20:11; Start 06/22/24 at 09:00; Stop 07/22/24 at 08:59 Potassium Chloride 40 meq BID PO Last administered on 06/22/24at 19:54; Start 06/22/24 at 09:00; Stop 06/22/24 at 21:01; Status DC Hydrocortisone Sodium Succinate 50 mg Q8H6 IV Last administered on 07/01/24at 21:38; Start 06/23/24 at 06:00; Stop 07/23/24 at 05:59 Hydrocortisone Sodium Succinate 50 mg ONCE@1930 IV Last administered on 06/22/24at 19:59; Start 06/22/24 at 19:30; Stop 06/22/24 at 22:30; Status DC Pharmacy Profile Note 1 each ONCE MISC; Start 06/22/24 at 16:30; Stop 06/23/24 at 07:22; Status DC Tigecycline 100 mg/Sodium Chloride 100 ml @ 200 mls/hr ONCE IV Last administered on 06/22/24at 18:51; Start 06/22/24 at 16:30; Stop 06/23/24 at 07:21; Status DC Tigecycline 50 mg/ Sodium Chloride 100 ml @ 200 mls/hr BID@0600,1800 IV Last administered on 06/29/24at 17:57; Start 06/23/24 at 06:00; Stop 06/30/24 at 05:59; Status DC Propofol 200 mg STK-MED ONCE IV; Start 06/23/24 at 10:49; Stop 06/23/24 at 10:49; Status DC Propofol 200 mg STK-MED ONCE IV; Start 06/23/24 at 10:49; Stop 06/23/24 at 10:49; Status DC Magnesium Sulfate 50 ml @ 0 mls/hr PROTOCOL PRN IV Last administered on 06/29/24at 15:22; Start 06/23/24 at 11:30; Stop 07/23/24 at 11:29 Potassium Chloride 100 ml @ 100 mls/hr AD PRN IV; Start 06/23/24 at 11:30; Stop 07/23/24 at 11:29 Potassium Chloride 20 meq AD PRN PO; Start 06/23/24 at 11:30; Stop 07/23/24 at 11:29 Potassium Chloride 20 meq AD PRN PO Last administered on 06/29/24at 15:19; Start 06/23/24 at 11:30; Stop 07/23/24 at 11:29 Polyethylene Glycol/ Electrolytes 4,000 ml ONCE ONCE PO Last administered on 06/23/24at 12:55; Start 06/23/24 at 14:00; Stop 06/23/24 at 14:01; Status DC Vitamin B Complex/ Vit C/Folic Acid 1 cap DAILY PO Last administered on 06/30/24at 11:10; Start 06/24/24 at 09:00; Stop 07/24/24 at 08:59 Ondansetron HCl 4 mg Q6H PRN IVP Last administered on 06/30/24at 21:38; Start 06/23/24 at 20:30; Stop 07/23/24 at 20:29 Metoprolol Tartrate 5 mg ONCE ONCE IV Last administered on 06/24/24at 09:36; Start 06/24/24 at 09:30; Stop 06/24/24 at 09:31; Status DC Folic Acid 1 mg DAILY PO Last administered on 06/30/24at 11:08; Start 06/25/24 at 09:00; Stop 07/25/24 at 08:59 Epoetin Rylan-epbx 10,000 unit [id number] SQ; Start 06/24/24 at 14:00; Stop 06/24/24 at 13:53; Status DC Epoetin Rylan-epbx 10,000 unit QWEEK SQ Last administered on 06/24/24at 14:37; Start 06/24/24 at 14:00; Stop 06/29/24 at 14:23; Status DC Amiodarone HCl 360 mg/Dextrose 200 ml @ 0 mls/hr PROTOCOL IV Last administered on 06/24/24at 15:51; Start 06/24/24 at 14:30; Stop 06/25/24 at 09:16; Status DC Amiodarone HCl 540 mg/Dextrose 300 ml @ 0 mls/hr PROTOCOL IV Last administered on 06/24/24at 20:42; Start 06/24/24 at 21:00; Stop 07/24/24 at 20:59 Apixaban 5 mg BID PO Last administered on 06/30/24at 11:10; Start 06/24/24 at 14:30; Stop 06/30/24 at 19:54; Status DC Metoprolol Tartrate 25 mg BID PO Last administered on 06/30/24at 21:37; Start 06/24/24 at 14:30; Stop 07/24/24 at 14:29 Amiodarone HCL/ Dextrose 100 ml @ 0 mls/hr ONCE ONCE IV Last administered on 06/24/24at 15:34; Start 06/24/24 at 16:00; Stop 06/24/24 at 16:01; Status DC Potassium Chloride 40 meq BID PO Last administered on 06/27/24at 09:23; Start 06/25/24 at 09:00; Stop 06/28/24 at 09:51; Status DC Calcium Carbonate 500 tab ONCE PO; Start 06/26/24 at 15:30; Stop 07/26/24 at 15:29; Status Cancel Calcium Carbonate 1 tab ONCE ONCE PO; Start 06/26/24 at 16:00; Stop 06/26/24 at 16:01; Status Cancel Calcium Carbonate 1 tab ONCE ONCE PO Last administered on 06/26/24at 17:05; Start 06/26/24 at 16:00; Stop 06/26/24 at 16:01; Status DC Furosemide 40 mg ONCE ONCE IV Last administered on 06/28/24at 10:21; Start 06/28/24 at 10:00; Stop 06/28/24 at 10:15; Status DC Wound Care/ Dressing Products 1 APPL BID TP Last administered on 07/01/24at 21:39; Start 06/28/24 at 21:00; Stop 07/28/24 at 20:59 Lactobacillus Rhamnosus 1 each BID PO Last administered on 07/01/24at 20:11; Start 06/28/24 at 10:00; Stop 07/28/24 at 09:59 Furosemide 40 mg Q12H IV Last administered on 07/01/24at 20:16; Start 06/28/24 at 21:00; Stop 07/28/24 at 20:59 Calcium Carbonate 500 tab Q6H6 PRN PO Last administered on 07/01/24at 20:11; Start 06/28/24 at 12:00; Stop 07/28/24 at 11:59 Sucralfate 1 gm BID PO Last administered on 06/28/24at 20:56; Start 06/28/24 at 12:30; Stop 06/28/24 at 22:30; Status DC Morphine Sulfate 2 mg Q4H PRN IVP Last administered on 07/01/24at 01:35; Start 06/29/24 at 00:30; Stop 07/01/24 at 16:10; Status DC Epoetin Rylan-epbx 10,000 unit QMOWEFR@1600 SQ Last administered on 07/01/24at 17:01; Start 06/29/24 at 15:00; Stop 07/29/24 at 14:59 Pharmacy Profile Note 1 each ONCE MISC; Start 06/30/24 at 12:30; Stop 06/30/24 at 12:08; Status DC Tigecycline 50 mg/ Sodium Chloride 100 ml @ 200 mls/hr BID@0600,1800 IV Last administered on 06/30/24at 19:50; Start 06/30/24 at 18:00; Stop 06/30/24 at 19:53; Status DC Pharmacy Profile Note 1 each ONCE MISC; Start 06/30/24 at 14:30; Stop 06/30/24 at 14:16; Status DC Tigecycline 50 mg/ Sodium Chloride 100 ml @ 200 mls/hr BID@0800,2000 IV Last administered on 07/01/24at 20:09; Start 07/01/24 at 08:00; Stop 07/10/24 at 07:59 Lidocaine HCl 20 ml STK-MED ONCE .ROUTE; Start 07/01/24 at 08:43; Stop 07/01/24 at 08:44; Status DC Heparin Sodium (Porcine) 1,000 unit STK-MED ONCE .ROUTE; Start 07/01/24 at 08:44; Stop 07/01/24 at 08:44; Status DC Heparin Sodium/ Sodium Chloride 500 ml @ As Directed STK-MED ONCE IV; Start 07/01/24 at 08:44; Stop 07/01/24 at 08:44; Status DC Fentanyl Citrate 100 mcg STK-MED ONCE .ROUTE; Start 07/01/24 at 09:14; Stop 07/01/24 at 09:15; Status DC Midazolam HCl 2 mg STK-MED ONCE .ROUTE; Start 07/01/24 at 09:14; Stop 07/01/24 at 09:15; Status DC Sodium Chloride 1,000 ml @ 0 mls/hr ONCE IV Last administered on 07/01/24at 15:15; Start 07/01/24 at 14:00; Stop 07/31/24 at 13:59 Heparin Sodium (Porcine) 10,000 unit AD IRRIG; Start 07/01/24 at 14:00; Stop 07/31/24 at 13:59 TOYA MANSFIELD MD Jul 01, 2024 22:32
--- NOTE | 2024-07-01 23:22 | PN ---
SUBJECTIVE: The patient is a 69-year-old male with hypertension and diabetes mellitus who has end-stage renal disease with new-onset hemodialysis. The patient is currently receiving hemodialysis via a right Perma catheter exiting in the supraclavicular region. The patient had his first round of dialysis today. Cardiovascular surgery was consulted for long-term hemodialysis access. OBJECTIVE: HEENT: Normocephalic, atraumatic. Extraocular muscles intact. HEART: S1 and S2 and regular. LUNGS: Revealed mild rhonchi bilaterally. He is laying flat in bed and is on room air. ABDOMEN: Reveals mild to moderate obesity. EXTREMITIES: The patient is right-handed. His left arm is edematous with scattered bruises. I do not see any identifiable veins. ASSESSMENT AND PLAN: End-stage renal disease and need for long-term hemodialysis access. We will plan a left upper extremity AV fistula and AV graft. Vein mapping has already been ordered. TID: [id number] RECEIPT: [id number]
[2024-07-02] VITALS (20 sets, daily range): BP systolic 110–150; BP diastolic 59–98; PULSE 72–84; RESP 14–20; TEMP 97.5–98.9; O2SAT 97–98
[2024-07-02 04:38] LABS: ALBUMIN 2.2 g/dL (3.5-5.0); BILIRUBIN,TOTAL 0.6 mg/dL (0.2-1.0); CREATININE 5.1 mg/dL (0.5-1.3); MAGNESIUM 1.7 mg/dL (1.80-2.40); TOTAL PROTEIN, SERUM 5.5 g/dL (6.0-8.3)
[2024-07-02 04:41] LABS: HEMATOCRIT 29.1 % (42-54); IMMATURE GRANULOCYTE ABSOLUTE 0.05 K/uL (0-1); LYMPHOCYTES # (AUTO) 0.4 K/uL (1.0-4.8); LYMPHOCYTES % (AUTO) 3.4 % (21.0-51.0); MEAN CORPUSCULAR HEMOGLOBIN 29.8 pg (27.0-33.0); MEAN CORPUSCULAR HGB CONC 34.4 g/dL (32.0-36.0); MEAN CORPUSCULAR VOLUME 86.6 fL (79-99); MONOCYTES % (AUTO) 9.6 % (3.0-13.0); NEUTROPHILS # (AUTO) 9.1 K/uL (1.8-7.7); NEUTROPHILS % (AUTO) 86.5 % (40.0-77.0); PLATELET COUNT (AUTO) 339 K/uL (130-400); RED BLOOD CELL COUNT(AUTO) 3.36 MIL/uL (4.50-6.20); WHITE BLOOD COUNT (AUTO) 10.6 K/uL (4.8-10.8)
[2024-07-02 05:01] LABS: POTASSIUM 2.8 mmol/L (3.5-5.1)
--- NOTE | 2024-07-02 09:44 | HMCIMG ---
CHEST 1VW HISTORY: [facility] COMPARISON: 06/30/2024 FINDINGS: A frontal projection of the chest was obtained. Mild bilateral pulmonary infiltrates are seen may be related to mild pulmonary vascular congestion with possible superimposed pneumonitis. Right venous catheter is seen with distal tip in the plane of the atriocaval junction. PICC line is also seen entering from the right with distal tip in plane of the superior vena cava. There is 20% right pneumothorax. The heart is borderline enlarged. All the lines and tubes are again seen in place. No evidence of aortic calcification is seen. IMPRESSION: 1. Mild bilateral pulmonary infiltrates are seen may be related to mild pulmonary vascular congestion with possible superimposed pneumonitis. 20% right pneumothorax. Report was given to the critical care team.
--- NOTE | 2024-07-02 10:31 | PN ---
GASTROENTEROLOGY PROGRESS NOTE Date of Visit: July 02, 2024 Time of Visit: 10:31 Events / Notes: [ ] Review of Systems: CONSTITUTIONAL: No malaise or change in sensation of wellbeing. ENMT: No rhinorrhea, otorrhea, sinus pain, ear ache. CARDIOVASCULAR: No angina, palpitations, orthopnea or paroxysmal dyspnea. RESPIRATORY: No SOB. GASTROINTESTINAL: No abdominal pain, nausea, vomiting, diarrhea, hematemesis, melena or change in the patient's habitual bowel movements consistency/number. GENITOURINARY: No dysuria, hematuria or change in bladder continence. MUSCULOSKELETAL: No new muscle pain or decrease in muscular strength. No new joint swelling, redness or tenderness. SKIN: No new rash. Physical Exam: GEN: Awake, alert, oriented in person, time and place, and in no acute distress. HEENT: No sinus tenderness. Tympanic membranes were not examined. No rhinorrhea. Oral pharyngeal mucosa is pink, moist and within normal limits. Neck is supple with no cervical lymphadenopathy, thyromegaly or JVD. CHEST: Inspection, palpation and percussion of the chest were unremarkable. Lung auscultation revealed normal breath sounds bilaterally. CARDIAC: PMI is within normal limits. Heart sounds are regular. Normal S1, S2. No gallop or murmur. ABD: Soft, non-tender and not distended. No peritoneal signs on palpation. No organomegaly. Normal bowel sounds. EXT: No cyanosis or clubbing. No edema. SKIN: Intact. No rashes. JOINTS: No evidence of synovitis or acute arthritis. NEURO: Alert and oriented to name, place and person. Cranial nerve examination is unremarkable. No focal motor deficits. Normal speech. Gait is normal. Strength is normal. Laboratory: [ ] Laboratory: Test 07/02/24 05:50 07/02/24 03:07 07/01/24 04:03 06/30/24 20:52 Range/Units Whole Blood Glucose 89 # 70-110 MG/DL White Blood Count 10.6 4.8-10.8 K/uL Red Blood Count 3.36 L 4.50-6.20 MIL/uL Hemoglobin 10.0 L 14.0-18.0 g/dL Hematocrit 29.1 L 42-54 % Mean Corpuscular Volume 86.6 79-99 fL Mean Corpuscular Hemoglobin 29.8 27.0-33.0 pg Mean Corpuscular Hemoglobin Concent 34.4 32.0-36.0 g/dL Red Cell Distribution Width 16.0 H 11.0-15.5 % Platelet Count 339 130-400 K/uL Mean Platelet Volume 11.3 H 7.5-10.5 fL Immature Granulocyte % (Auto) 0.5 0-1 % Neutrophils (%) (Auto) 86.5 H 40.0-77.0 % Lymphocytes (%) (Auto) 3.4 L 21.0-51.0 % Monocytes (%) (Auto) 9.6 3.0-13.0 % Eosinophils (%) (Auto) 0.0 0.0-8.0 % Basophils (%) (Auto) 0.0 0.0-5.0 % Neutrophils # (Auto) 9.1 H 1.8-7.7 K/uL Lymphocytes # (Auto) 0.4 L 1.0-4.8 K/uL Monocytes # (Auto) 1.0 0.1-1.0 K/uL Eosinophils # (Auto) 0.00 0.00-0.70 K/uL Basophils # (Auto) 0.00 0.00-0.20 K/uL Absolute Immature Granulocyte (auto 0.05 0-1 K/uL Nucleated Red Blood Cells 0.0 0.0-0.19 % Sodium Level 141 136-145 mmol/L Potassium Level 2.8 *L 3.5-5.1 mmol/L Chloride Level 99 L 101-111 mmol/L Carbon Dioxide Level 30 21-32 mmol/L Blood Urea Nitrogen 104 #*H 7-18 mg/dL Creatinine 5.1 H 0.5-1.3 mg/dL Glomerular Filtration Rate Calc 11 >90 mL/min Random Glucose 69 L 70-105 mg/dL Total Calcium 7.1 L 8.5-10.1 mg/dL Magnesium Level 1.70 L 1.80-2.40 mg/dL Total Bilirubin 0.6 0.2-1.0 mg/dL Aspartate Amino Transf (AST/SGOT) 30 10-37 U/L Alanine Aminotransferase (ALT/SGPT) 23 # 12-78 U/L Alkaline Phosphatase 193 #H 50-136 U/L Total Protein 5.5 L 6.0-8.3 g/dL Albumin 2.2 L 3.5-5.0 g/dL Segmented Neutrophils % 96 H 40-70 % Lymphocytes % (Manual) 1 L 22-44 % Monocytes % (Manual) 3 2-9 % Differential Comment MANUAL DIFFERENTIAL White Cell Morphology Comment See comments Platelet Morphology Comment ADEQUATE Red Blood Cell Morphology See comments Prothrombin Time 17.8 H 9.6-11.6 SEC Prothromb Time International Ratio 1.78 H 0.85-1.15 Activated Partial Thromboplast Time 39.4 H 26.3-35.5 SEC Phosphorus Level 8.1 H 2.5-4.9 mg/dL Bedside Glucose Comment Notified Nurse Test 06/30/24 15:20 Range/Units Hemoglobin A1c 7.4 H 4.0-6.0 % Estimated Average Glucose (eAG) 166 H 70-126 mg/dL Iron Level 32 #L 65-175 mcg/dL Total Iron Binding Capacity 75 L 250-450 mcg/dL Percent Iron Saturation 42.6 30-44 % Ferritin 424 H 30-400 ng/mL Triglycerides Level 64 30-200 mg/dL Cholesterol Level 167 <200 mg/dL LDL Cholesterol 86 0-99 mg/dL HDL Cholesterol 33 29-71 mg/dL Hepatitis B Surface Antigen. Non-Reactive Nonreactive Hepatitis B Surface Antibody. Negative L Reactive Hepatitis B Core Total Antibody. Non-Reactive Nonreactive Hepatitis C Antibody Non-Reactive Nonreactive HIV (1&2) Antibody Non-Reactive Negative HIV P24 Antigen, Qualitative Non-Reactive Negative Current Medications Medications (Trade) Dose Ordered Sig/Roderick Route PRN Reason Start Time Stop Time Status Last Admin Dose Admin Albuterol Sulfate (Proventil 0.083% 2.5mg/3ml) 10 mg ONCE STAT IH 06/17/24 04:05 06/17/24 04:12 DC 06/17/24 04:31 10 MG Amiodarone HCl 360 mg/Dextrose 200 ml @ 0 mls/hr PROTOCOL IV 06/24/24 14:30 06/25/24 09:16 DC 06/24/24 15:51 33.33 MLS/HR Amiodarone HCl 540 mg/Dextrose 300 ml @ 0 mls/hr PROTOCOL IV 06/24/24 21:00 07/24/24 20:59 06/24/24 20:42 16.7 MLS/HR Amlodipine Besylate (NorvASC 5MG TAB) 5 mg BID PO 06/22/24 09:00 07/22/24 08:59 07/02/24 09:06 5 MG Apixaban (EliquIS) 5 mg BID PO 06/24/24 14:30 06/30/24 19:54 DC 06/30/24 11:10 5 MG Calcium Carbonate (Tums 500 Mg Chew Tab) 500 tab ONCE PO 06/26/24 15:30 07/26/24 15:29 Cancel Calcium Carbonate (Tums 500 Mg Chew Tab) 500 tab Q6H6 PRN PO GI UPSET/UPSET STOMACH 06/28/24 12:00 07/28/24 11:59 07/02/24 03:14 1 TAB Calcium Gluconate (Calcium Gluc 1gm Vial) 1 gm AD STAT IV 06/17/24 04:05 06/17/24 04:12 DC 06/17/24 04:21 1 GM Cefepime HCl (MAXipime 1 GM vial) 0.25 gm Q24H IVPB 06/17/24 04:00 06/18/24 04:06 DC 06/17/24 04:58 0.25 GM Cefepime HCl (MAXipime 1 GM vial) 1 gm Q24H IVPB 06/20/24 05:00 06/22/24 16:09 DC 06/22/24 03:12 1 GM Cefepime HCl 0.25 gm/Sodium Chloride 50 ml @ 100 mls/hr Q24H IVPB 06/18/24 04:30 06/19/24 10:58 DC 06/19/24 05:26 100 MLS/HR Dextrose (D50w) 50 ml AD PRN IV HYPOGLYCEMIA PROTOCOL 06/17/24 01:00 06/17/24 01:01 DC Dextrose (D50w) 50 ml AD PRN IV HYPOGLYCEMIA PROTOCOL 06/17/24 01:00 07/17/24 00:59 Dextrose (D50w) 50 ml ONCE STAT IV 06/17/24 04:05 06/17/24 04:12 DC 06/17/24 04:21 50 ML Epoetin Rylan-epbx (Retacrit) 10,000 unit [id number] SQ 06/24/24 14:00 06/24/24 13:53 DC Epoetin Rylan-epbx (Retacrit) 10,000 unit QMOWEFR@1600 SQ 06/29/24 15:00 07/29/24 14:59 07/01/24 17:01 10,000 UNIT Epoetin Rylan-epbx (Retacrit) 10,000 unit QWEEK SQ 06/24/24 14:00 06/29/24 14:23 DC 06/24/24 14:37 10,000 UNIT Famotidine (Pepcid 20mg Vial) 20 mg Q48H IV 06/17/24 01:00 07/17/24 00:59 07/01/24 01:35 20 MG Folic Acid (FOLic ACID 1 MG TABLET) 1 mg DAILY PO 06/25/24 09:00 07/25/24 08:59 07/02/24 09:07 1 MG Furosemide (LASix 40MG VIAL) 40 mg Q12H IV 06/28/24 21:00 07/28/24 20:59 07/02/24 09:05 40 MG Furosemide (LASix 40MG VIAL) 40 mg Q8H IV 06/19/24 18:30 06/20/24 18:31 DC 06/20/24 18:54 40 MG Glucagon (Glucagon 1mg Kit) 1 mg AD PRN IM HYPOGLYCEMIA PROTOCOL 06/17/24 01:00 06/17/24 01:01 DC Glucagon (Glucagon 1mg Kit) 1 mg AD PRN IM HYPOGLYCEMIA PROTOCOL 06/17/24 01:00 07/17/24 00:59 Heparin Sodium (Porcine) (HEParin 5,000 UNIT VIAL) 10,000 unit AD IRRIG 07/01/24 14:00 07/31/24 13:59 Hydralazine HCl ([id number] TAB) 25 mg TID PO 06/22/24 09:00 07/22/24 08:59 07/02/24 09:05 25 MG Hydrocortisone Sodium Succinate (Solu-corTEF 100MG) 50 mg ONCE@1930 IV 06/22/24 19:30 06/22/24 22:30 DC 06/22/24 19:59 50 MG Hydrocortisone Sodium Succinate (Solu-corTEF 100MG) 50 mg Q8H IV 06/18/24 11:30 06/22/24 15:46 DC 06/22/24 03:12 50 MG Hydrocortisone Sodium Succinate (Solu-corTEF 100MG) 50 mg Q8H6 IV 06/23/24 06:00 07/23/24 05:59 07/01/24 21:38 50 MG Hydromorphone HCl (DiLAUDid 0.5MG INJ) 0.5 mg Q4H PRN IVP SEVERE PAIN (7-10) 06/20/24 13:00 06/25/24 12:59 DC 06/21/24 23:50 0.5 MG Insulin Human Regular (humuLIN R 100 UNIT/ML 3ML) 10 unit ONCE STAT IV 06/17/24 04:05 06/17/24 04:12 DC 06/17/24 04:28 10 UNIT Insulin Human Regular (humuLIN R 100 UNIT/ML 3ML) INSULIN SLIDING SCAL... ACHS SQ 06/17/24 07:30 07/17/24 07:29 07/01/24 20:14 4 UNIT Lactated Ringer's 1,000 ml @ 130 mls/hr Q7H42M IV 06/21/24 09:30 06/28/24 09:51 DC 06/28/24 09:03 130 MLS/HR Lactobacillus Rhamnosus ([facility] [employer] invi) 1 each BID PO 06/28/24 10:00 07/28/24 09:59 07/02/24 09:05 1 EACH Leptospermum Honey (Keegoney) 1 appl DAILY TP 06/19/24 09:00 07/19/24 08:59 07/02/24 09:07 1 APPL Magnesium Sulfate 50 ml @ 0 mls/hr PROTOCOL PRN IV MAGNESIUM PROTOCOL 06/23/24 11:30 07/23/24 11:29 06/29/24 15:22 25 MLS/HR Metoprolol Tartrate (loprESSOR) 25 mg BID PO 06/24/24 14:30 07/24/24 14:29 07/02/24 09:06 25 MG Metronidazole/ Sodium Chloride (flaGYL) 500 mg Q8H IV 06/17/24 05:00 06/27/24 04:59 DC 06/26/24 21:48 500 MG Micafungin Sodium 100 ml @ 100 mls/hr Q24H IV 06/18/24 00:00 07/18/24 00:00 07/02/24 00:23 100 MLS/HR Morphine Sulfate (morPHINE 2MG SYG) 2 mg Q4H PRN IVP SEVERE PAIN (7-10) 06/29/24 00:30 07/01/24 16:10 DC 07/01/24 01:35 2 MG Norepinephrine 250 ml @ 0 mls/hr PROTOCOL IV 06/16/24 22:00 06/22/24 07:20 DC 06/17/24 05:33 24.5 MLS/HR Ondansetron HCl (zoFRAN 4MG INJ) 4 mg Q6H PRN IVP NAUSEA/VOMITING 06/23/24 20:30 07/23/24 20:29 06/30/24 21:38 4 MG Pharmacy Profile Note (Lace Assessment) 1 each AD MISC 06/19/24 15:30 06/20/24 12:49 DC Pharmacy Profile Note (Pharmacy Communication) 1 each ONCE MISC 06/17/24 23:00 06/19/24 07:13 DC 06/17/24 23:31 1 EACH Pharmacy Profile Note (Pharmacy Communication) 1 each ONCE MISC 06/22/24 16:30 06/23/24 07:22 DC Pharmacy Profile Note (Pharmacy Communication) 1 each ONCE MISC 06/30/24 12:30 06/30/24 12:08 DC Pharmacy Profile Note (Pharmacy Communication) 1 each ONCE MISC 06/30/24 14:30 06/30/24 14:16 DC Phenylephrine HCl 100 mg/Sodium Chloride 250 ml @ 0 mls/hr AD PRN IV TITRATE 06/17/24 10:30 06/22/24 07:20 DC 06/18/24 05:48 27 MLS/HR Piperacillin Sod/ Tazobactam Sod (Zosyn 3.375gm+NS 50ml) 3.375 gm Q12H IV 06/16/24 21:30 06/17/24 01:03 DC 06/16/24 21:42 3.375 GM Piperacillin Sod/ Tazobactam Sod (Zosyn 3.375gm+NS 50ml) 3.375 gm Q12H IVPB 06/17/24 01:00 06/17/24 04:00 DC 06/17/24 02:54 3.375 GM Potassium Chloride 100 ml @ 100 mls/hr AD PRN IV POTASSIUM PROTOCOL 06/21/24 08:00 07/21/24 07:59 07/01/24 05:21 100 MLS/HR Potassium Chloride 100 ml @ 100 mls/hr AD PRN IV POTASSIUM PROTOCOL 06/23/24 11:30 07/23/24 11:29 Potassium Chloride (K-Dur/Klor-Con 20meq) 20 meq AD PRN PO POTASSIUM PROTOCOL 06/23/24 11:30 07/23/24 11:29 07/02/24 09:36 20 MEQ Potassium Chloride (K-Dur/Klor-Con 20meq) 40 meq BID PO 06/22/24 09:00 06/22/24 21:01 DC 06/22/24 19:54 40 MEQ Potassium Chloride (K-Dur/Klor-Con 20meq) 40 meq BID PO 06/25/24 09:00 06/28/24 09:51 DC 06/27/24 09:23 40 MEQ Potassium Chloride (KCl 10% Elixir 20meq/15ml) 20 meq AD PRN PO POTASSIUM PROTOCOL 06/23/24 11:30 07/23/24 11:29 Sodium Bicarbonate / Dextrose 1,000 ml @ 0 mls/hr Q0M IVP 06/17/24 05:00 06/17/24 04:58 DC Sodium Bicarbonate 150 meq/Dextrose 1,150 ml @ 50 mls/hr Q23H IVP 06/18/24 08:00 06/19/24 12:24 DC 06/18/24 20:23 100 MLS/HR Sodium Bicarbonate 150 meq/Dextrose 1,150 ml @ 100 mls/hr [id number] IVP 06/17/24 05:00 06/18/24 04:44 DC 06/17/24 21:00 100 MLS/HR Sodium Polystyrene Sulfonate (kayEXALate 15 GM/60 ML) 15 gm Q2H PO 06/16/24 21:30 06/16/24 23:31 DC 06/16/24 22:21 15 GM Sodium Chloride 1,000 ml @ 0 mls/hr ONCE IV 07/01/24 14:00 07/31/24 13:59 07/01/24 15:15 100 MLS/HR Sodium Chloride 1,000 ml @ 150 mls/hr Q6H40M IV 06/16/24 23:00 06/17/24 09:10 DC 06/17/24 05:15 150 MLS/HR Sodium Chloride (NS 50ml) 50 ml AD IV 06/17/24 01:00 06/17/24 01:05 DC Sucralfate (Carafate) 1 gm BID PO 06/28/24 12:30 06/28/24 22:30 DC 06/28/24 20:56 1 GM Thiamine HCl (Vitamin B-1) 100 mg DAILY IVP 06/17/24 09:00 07/17/24 08:59 07/02/24 09:06 100 MG Tigecycline 100 mg/Sodium Chloride 100 ml @ 200 mls/hr ONCE IV 06/22/24 16:30 06/23/24 07:21 DC 06/22/24 18:51 200 MLS/HR Tigecycline 50 mg/ Sodium Chloride 100 ml @ 200 mls/hr BID@0600,1800 IV 06/23/24 06:00 06/30/24 05:59 DC 06/29/24 17:57 200 MLS/HR Tigecycline 50 mg/ Sodium Chloride 100 ml @ 200 mls/hr BID@0600,1800 IV 06/30/24 18:00 06/30/24 19:53 DC 06/30/24 19:50 200 MLS/HR Tigecycline 50 mg/ Sodium Chloride 100 ml @ 200 mls/hr BID@0800,2000 IV 07/01/24 08:00 07/10/24 07:59 07/02/24 09:06 200 MLS/HR Vancomycin HCl (Vancomycin 750mg) 750 mg Q96H IVPB 06/20/24 22:00 06/17/24 14:00 DC Vancomycin HCl (Vancomycin Protocol) 1 each AD IV 06/17/24 01:30 06/17/24 14:01 DC Vitamin B Complex/ Vit C/Folic Acid (Nephrovite Tablet) 1 cap DAILY PO 06/24/24 09:00 07/24/24 08:59 07/02/24 09:05 1 CAP Wound Care/ Dressing Products (Venelex Ointment) 1 APPL BID TP 06/28/24 21:00 07/28/24 20:59 07/02/24 09:07 1 GM Diagnostics / Radiology: [COPY/PASTE HERE IF NO REPORTS PLEASE DELETE SECTION] Assessment: Positive FOBT Acute blood loss anemia HTN DM Plan: Patient defers Colonoscopy Continue GI prophylaxis Advance diet as tolerated Avoid NSAIDs Antireflux measures Monitor H&H and transfuse as needed Call with questions, concerns or change in clinical status Patient to follow-up at clinic post discharge Thank you for this consult ANGEL [employer]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
--- NOTE | 2024-07-02 11:34 | PN ---
INFECTIOUS DISEASE PROGRESS NOTE Date of Service: July 02, 2024 SUBJECTIVE: Patient is awake, alert and oriented. Patient will undergo a 2nd dialysis treatment today. Low potassium level of 2.8 being replaced. Patient is pending a vein mapping for a planned AV fistula placement. Patient remains afebrile, temperature is 97.9� and a WBC of of 10.6. Continues on Tygacil IV and micafungin IV and no reports of nausea or vomiting. PHYSICAL EXAM EYES: Anicteric. Pupils equal and reactive. HENT: No oral thrush seen, moist Oral mucosa. NECK: Supple, no JVD or thyromegaly. LUNGS: Good air entry. No rales, no rhonchi. CARDIOVASCULAR: S1, S2 regular. No murmur heard. ABDOMEN: Soft, non tender, bowel sounds present, no organomegaly. CENTRAL NERVOUS SYSTEM: Awake, alert, oriented x 2. SKIN: No rashes, no swelling. LYMPHATICS: No peripheral lymphadenopathy. MUSCULOSKELETAL: No joint swelling, erythema or tenderness. EXTREMITIES: No cyanosis or clubbing. 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 BACK: No deformity, no pressure ulcer. GENITOURINARY: No dysuria or hematuria. Vital Sign (Last 12 Hours) 07/02/24 07/02/24 07/02/24 07/02/24 00:38 09:30 10:25 10:38 Temp 97.5 97.9 Pulse 78 80 76 Resp 18 18 14 B/P (MAP) 110/59 116/69 139/75 Pulse Ox 95 94 98 O2 Delivery Room Air Room Air Room Air Nasal Cannula* O2 Flow Rate 2 FiO2 28 Intake & Output (last 24hrs) 07/01/24 07/01/24 07/02/24 14:59 22:59 06:59 Intake Total 200.0 ml 100.0 ml Output Total 2700 ml Balance -2500.0 ml 100.0 ml LABS: Laboratory: Test 07/02/24 05:50 07/02/24 03:07 07/01/24 04:03 06/30/24 20:52 Range/Units Whole Blood Glucose 89 # 70-110 MG/DL White Blood Count 10.6 4.8-10.8 K/uL Red Blood Count 3.36 L 4.50-6.20 MIL/uL Hemoglobin 10.0 L 14.0-18.0 g/dL Hematocrit 29.1 L 42-54 % Mean Corpuscular Volume 86.6 79-99 fL Mean Corpuscular Hemoglobin 29.8 27.0-33.0 pg Mean Corpuscular Hemoglobin Concent 34.4 32.0-36.0 g/dL Red Cell Distribution Width 16.0 H 11.0-15.5 % Platelet Count 339 130-400 K/uL Mean Platelet Volume 11.3 H 7.5-10.5 fL Immature Granulocyte % (Auto) 0.5 0-1 % Neutrophils (%) (Auto) 86.5 H 40.0-77.0 % Lymphocytes (%) (Auto) 3.4 L 21.0-51.0 % Monocytes (%) (Auto) 9.6 3.0-13.0 % Eosinophils (%) (Auto) 0.0 0.0-8.0 % Basophils (%) (Auto) 0.0 0.0-5.0 % Neutrophils # (Auto) 9.1 H 1.8-7.7 K/uL Lymphocytes # (Auto) 0.4 L 1.0-4.8 K/uL Monocytes # (Auto) 1.0 0.1-1.0 K/uL Eosinophils # (Auto) 0.00 0.00-0.70 K/uL Basophils # (Auto) 0.00 0.00-0.20 K/uL Absolute Immature Granulocyte (auto 0.05 0-1 K/uL Nucleated Red Blood Cells 0.0 0.0-0.19 % Sodium Level 141 136-145 mmol/L Potassium Level 2.8 *L 3.5-5.1 mmol/L Chloride Level 99 L 101-111 mmol/L Carbon Dioxide Level 30 21-32 mmol/L Blood Urea Nitrogen 104 #*H 7-18 mg/dL Creatinine 5.1 H 0.5-1.3 mg/dL Glomerular Filtration Rate Calc 11 >90 mL/min Random Glucose 69 L 70-105 mg/dL Total Calcium 7.1 L 8.5-10.1 mg/dL Magnesium Level 1.70 L 1.80-2.40 mg/dL Total Bilirubin 0.6 0.2-1.0 mg/dL Aspartate Amino Transf (AST/SGOT) 30 10-37 U/L Alanine Aminotransferase (ALT/SGPT) 23 # 12-78 U/L Alkaline Phosphatase 193 #H 50-136 U/L Total Protein 5.5 L 6.0-8.3 g/dL Albumin 2.2 L 3.5-5.0 g/dL Segmented Neutrophils % 96 H 40-70 % Lymphocytes % (Manual) 1 L 22-44 % Monocytes % (Manual) 3 2-9 % Differential Comment MANUAL DIFFERENTIAL White Cell Morphology Comment See comments Platelet Morphology Comment ADEQUATE Red Blood Cell Morphology See comments Prothrombin Time 17.8 H 9.6-11.6 SEC Prothromb Time International Ratio 1.78 H 0.85-1.15 Activated Partial Thromboplast Time 39.4 H 26.3-35.5 SEC Phosphorus Level 8.1 H 2.5-4.9 mg/dL Bedside Glucose Comment Notified Nurse Test 06/30/24 15:20 Range/Units Hemoglobin A1c 7.4 H 4.0-6.0 % Estimated Average Glucose (eAG) 166 H 70-126 mg/dL Iron Level 32 #L 65-175 mcg/dL Total Iron Binding Capacity 75 L 250-450 mcg/dL Percent Iron Saturation 42.6 30-44 % Ferritin 424 H 30-400 ng/mL Triglycerides Level 64 30-200 mg/dL Cholesterol Level 167 <200 mg/dL LDL Cholesterol 86 0-99 mg/dL HDL Cholesterol 33 29-71 mg/dL Hepatitis B Surface Antigen. Non-Reactive Nonreactive Hepatitis B Surface Antibody. Negative L Reactive Hepatitis B Core Total Antibody. Non-Reactive Nonreactive Hepatitis C Antibody Non-Reactive Nonreactive HIV (1&2) Antibody Non-Reactive Negative HIV P24 Antigen, Qualitative Non-Reactive Negative ASSESSMENT: Fungemia. 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 Septic shock, resolving. Anemia requiring blood transfusion, status post EGD. Acute renal failure, new onset dialysis. PLAN: Continue tigecycline IV. Continue micafungin. Continue wound care. Continue dialysis as recommended by [employer]. Avoid nephrotoxic medications. Patient was referred to [facility] and has been approved. This case was reviewed and discussed with my supervising physician and the above assessment and plan was formulated and agreed upon. ATTESTATION BY PHYSICIAN I have seen and examined the patient. I reviewed the documentation, medical decision making, and treatment plan as noted by the mid-level provider above. I agree with the findings and plan of care. CECIL ROY MD, MIRTA L [facility] July 02, 2024 11:34
--- NOTE | 2024-07-02 14:23 | PN ---
[facility] PROGRESS NOTE Date of Service: July 02, 2024 Time of Service: 14:21 SUBJECTIVE: Patient is seen and examined at bedside, case discussed with the RN, during my visit the patient resting comfortably in bed, following simple commands, he is on blood pressure support with Levophed, getting sodium bicarbonate IV. BP 108/57, heart rate of 116, saturating 99% on 2 L nasal cannula. Hemoglobin 8.4, hematocrit 27.0, WBC 14.2, platelet count of 28. Sodium 143, potassium 5.0, bicarb of five, BUN 107, creatinine 9.7. ABG with pH of 7.8, pCO2 less than 15, bicarb of 2.3. 06/18 patient has been seen and examined at bedside, case discussed with the RN, patient remains confused, still on pressor support with Levophed and Andrew- Synephrine, patient also on sodium bicarbonate drip. No family members at bedside during my visit. Blood pressure 112/44, heart rate of 91, saturating 93%. CBC with WBC of 16.4, hemoglobin 8.2, hematocrit 23.7, platelet count of 27. Sodium 145, potassium 3.7, BUN of 102, creatinine 10.2, sodium bicarb of 12. ABG with pH of 7.33, pCO2 31, PO2 64, bicarb of 16.1. Septic workup reviewed, blood cultures no growth after 24 hours. Patient getting broad- spectrum IV antibiotics during my visit. CT of the abdomen pelvis probable mild enterocolitis with mild to moderate small and large bowel liquid content, cholelithiasis, urinary wall thickening, more than expected for empty urinary bladder. Mild distal colonic diverticulosis. 06/19 patient is seen and examined at bedside, case discussed with the RN, no acute events overnight, patient is still confused, however less compared to time of admission. Following very simple commands. He is currently off vasopressors. Replace, output since this morning 500 cc. Blood pressure 111/78, afebrile, saturating 96-98% 2 L nasal cannula. WBC trending down at 11.2, hemoglobin 7.6, hematocrit 20.9, platelet count of 14. BUN 108, creatinin e 10.2. ABG shows a pH 7.41, pCO2 37, PO2 81.5, bicarb 23.1. Blood culture showing Alicia tropicalis. Patient has been started on micafungin. Continue antibiotics. Continue critical care input and recommendation, continue Nephrology input and recommendation in terms of renal replacement therapy, continue daily weight, monitor intake and output. Follow anemia workup, stool occult blood, serial CBC transfuse 1 unit of PRBC hemoglobin less than seven, we will request Hematology consultation as well. 06/20 patient seen at bedside, no acute events overnight. He is not requiring pressors he is afebrile, hemodynamically stable saturating well on 2 L nasal cannula. Hemoglobin was 6.1 and platelets low at night, we will be transfused with packed red blood cells and platelets per critical Care, we will follow up post transfusion. Potassium decreased from 3.4 down to 3.2, creatinine stable at 10.2, we will follow up with Nephrology for recommendations. Urine output is improving, he has been started on Lasix, we will follow up. Patient continues on micafungin. Pt reticulocyte count low at 0.18 suggesting decreased production of RBC, FOBT positive as well concerning for GI Bleed. Will consult hematology and GI and follow up 06/21 patient seen at bedside, no acute events overnight. He has been afebrile, hemodynamically stable saturating well on 2 L nasal cannula. He has been NPO ho wever he has no history of volume overload, and his kidney function is decreased, we will perfuse his kidneys with some IV fluids and allow clear liquid diet. Creatinine stable at 9.9, same as yesterday, potassium decreased at 3.0, nephrology to manage potassium levels until renal function improves. Hemoglobin improved from 8.0 up to 8.7, remainder of his labs are relatively unremarkable. 06/22 Pt seen at bedside, no acute events overnight. He has been downgraded from ICU. He has been afebrile, hemodynamically stable, saturating well on room air. Hgb stable at 8.6, similar to yesterday, platelets decreased from 102 down to 82, potassium low at 2.7, will be repleted according to protocol, creatinine improved from 9.9 down to 8.5, sodium improved from 150 down to 146, remainder of his labs are relatively unremarkable. Urine output adequate, approximately 2.3L output in the last 24 hours. On physical exam, no evidence of volume overflow, will continue with IV fluids to perfuse his kidneys. Left foot sunita wing mullins-resistant organism, ID to adjust antibiotics 06/23 patient seen at bedside, no acute events overnight. He is pending EGD with GI today, we will follow up postprocedure. He has been afebrile, hemodynamically stable, mildly hypertensive with systolics in the 150s, saturating well on 3 L nasal cannula. Hemoglobin improved from 8.6 up to 9.0, platelets decreased from 82 down to 78, creatinine continues to improve from 8.5 down to 7.2 with adequate urine output. Potassium low at 3.1, we will be repl eted according to potassium protocol. Patient weak and feeble, we will likely need transitioned to [facility] facility, case management to assist with placement. He will continue daily physical therapy. 06/24 patient seen at bedside, no acute events overnight. EGD was done yesterday no evidence of bleed noted. Patient refusing colonoscopy. Hgb is uptrending from 9.0 up to 9.3 suggesting resolution of GI bleed, platelets improved from 78 up to 87, creatinine improved from 7.2 down to 6.4, potassium low at 3.4, will be repleted according to protocol. Patient will need placement for IV antibiotics 06/25 patient seen at bedside, no acute events overnight. Continues to refuse colonoscopy yesterday he went into AFib with RVR was started on IV amiodarone. He was rate controlled today, likely we will be transitioned to p.o. amiodarone. Now pending placement to continue IV antibiotic and antifungal therapy. We will follow up with case management and Cardiology. Creatinine improved from 6.4 down to 5.9, BUN still elevated at 112. Potassium low at 2.9 will be repleted according to protocol and will give an extra 80meq supplementation. 06/26 patient seen at bedside, no acute events overnight. He has been afebrile, hemodynamically stable saturating well on room air. WBC increased from 11.3 up to 13.1, hemoglobin stable at 9.7, same as yesterday, creatinine stable at 5.9, same as yesterday, BUN increased from 112 up to 117, remainder of his labs are relatively unremarkable. Proximally 1.1 L urine output in the last 24 hours. He is pending placement 06/27 Pt seen at bedside, no acute events overnight. He remains stable, vitals unremarkable. Pending placement 06/28 patient seen at bedside, no acute events overnight. His urine output has been decreasing, his BUN is up trending and his creatinine stable at 5.9. Discuss with Nephrology and we will hold the IV fluids and start a short course of Lasix to see his response. If he does not improve he may end up needing renal replacement therapy. Remainder of his vitals and labs are unremarkable. 06/29 seen at bedside, no acute events overnight. He was started on Lasix yesterday, diuresed proximally 1.4 L and is -992 mL over the last 24 hours. He still appears fluid overloaded. BUN continues to uptrend, creatinine stable at 6.0, similar to yesterday. Continue to monitor renal function, if it continues to deteriorate or urine output decreases, he may need renal replacement therapy. 06/30 patient seen at bedside, no acute events overnight. Renal function lulu nues to deteriorate, nephrology spoke with the patient about worsening renal function and the patient has agreed to transition to dialysis, will follow up with nephrology. 07/01 patient seen at bedside, no acute events overnight. He was in agreement to begin dialysis he will be taken for PermCath placement today and start his 1st session, venous mapping we will be done and CV surgery has been consulted for AV fistula occlusion. Patient's potassium low at 3.0, we will hold off on repletion due to renal dysfunction and defer to Nephrology for management of the electrolytes. Creatinine stable at 6.2, same as yesterday. WBC increased from 10.2 up to 11.7, hemoglobin decreased from 10.8 down to 9.6, remainder of his labs are relatively unremarkable. 07/02 patient seen at bedside, his dialysis catheter was placed yesterday. This morning on chest x-ray there appears to be a 20% pneumothorax, pulmonology has been updated with these findings, we will order a repeat chest x-ray at 1:00 p.m. and follow up. If there is progression of the pneumothorax he may need a chest tube. Patient has had venogram done, he is pending AV fistula creation with CV surgery. Once the CV surgery has been completed and pneumothorax resolves, patient will be good candidate to transitioned to penitentiary. At bedside he is in no acute distress, has no complaints although he does seem tearful about having to be on dialysis and he is currently undergoing a dialysis session. REVIEW OF SYSTEMS 12 point review of systems negative unless noted in HPI PHYSICAL EXAM GENERAL APPEARANCE: The patient remains confused. Withdrawing to painful stimulation. NEUROLOGICAL: Cranial nerves II-XII grossly intact. Motor is 5/5 in bilateral upper and lower extremities proximal to distal. No sensory deficits. HEENT: Face is symmetric. Pupils are equal and reactive. Extraocular movements are intact. NECK: Supple. No JVD. No thyromegaly. No submental, submandibular, pre- /postauricular, occipital or supraclavicular lymphadenopathy. CHEST: Normal chest expansion. No Telemetry. LUNGS: Absence of any rales, rhonchi or any wheezing. CARDIOVASCULAR: Regular. S1 and S2 normal. No appreciable rubs, murmurs or gallops. ABDOMEN: Soft, nontender, and nondistended. There is no rebound, voluntary guarding, or rigidity. : Deferred. No Gallagher. EXTREMITIES: Non-edematous and not cyanotic. No clubbing. Good capillary refill. SKIN: No skin breakdown. Vital Signs (last 8hr) Date Time Temp Pulse Resp B/P (MAP) Pulse Ox O2 Delivery O2 Flow Rate FiO2 07/02/24 13:25 97.5 75 14 141/71 Room Air 07/02/24 13:15 73 14 113/68 Room Air 07/02/24 13:00 80 14 119/66 Room Air 07/02/24 12:45 78 14 128/68 Room Air 07/02/24 12:30 77 14 140/76 Room Air 07/02/24 12:15 75 14 128/69 Room Air 07/02/24 12:06 98.4 72 20 150/76 97 Room Air 07/02/24 12:00 75 14 135/72 Room Air 07/02/24 11:45 74 14 141/75 Room Air 07/02/24 11:30 77 14 145/98 Room Air 07/02/24 11:15 72 14 150/76 Room Air 07/02/24 11:00 76 14 144/76 Room Air 07/02/24 10:45 97.9 84 14 117/79 Room Air 07/02/24 10:38 98 Nasal Cannula* 2 28 07/02/24 10:25 97.9 76 14 139/75 Room Air 07/02/24 09:30 80 18 116/69 94 Room Air 07/02/24 08:00 Nasal Cannula 2.0 LABS: Laboratory: Test 07/02/24 11:31 07/02/24 03:07 07/01/24 04:03 06/30/24 20:52 Range/Units Whole Blood Glucose 174 #H 70-110 MG/DL White Blood Count 10.6 4.8-10.8 K/uL Red Blood Count 3.36 L 4.50-6.20 MIL/uL Hemoglobin 10.0 L 14.0-18.0 g/dL Hematocrit 29.1 L 42-54 % Mean Corpuscular Volume 86.6 79-99 fL Mean Corpuscular Hemoglobin 29.8 27.0-33.0 pg Mean Corpuscular Hemoglobin Concent 34.4 32.0-36.0 g/dL Red Cell Distribution Width 16.0 H 11.0-15.5 % Platelet Count 339 130-400 K/uL Mean Platelet Volume 11.3 H 7.5-10.5 fL Immature Granulocyte % (Auto) 0.5 0-1 % Neutrophils (%) (Auto) 86.5 H 40.0-77.0 % Lymphocytes (%) (Auto) 3.4 L 21.0-51.0 % Monocytes (%) (Auto) 9.6 3.0-13.0 % Eosinophils (%) (Auto) 0.0 0.0-8.0 % Basophils (%) (Auto) 0.0 0.0-5.0 % Neutrophils # (Auto) 9.1 H 1.8-7.7 K/uL Lymphocytes # (Auto) 0.4 L 1.0-4.8 K/uL Monocytes # (Auto) 1.0 0.1-1.0 K/uL Eosinophils # (Auto) 0.00 0.00-0.70 K/uL Basophils # (Auto) 0.00 0.00-0.20 K/uL Absolute Immature Granulocyte (auto 0.05 0-1 K/uL Nucleated Red Blood Cells 0.0 0.0-0.19 % Sodium Level 141 136-145 mmol/L Potassium Level 2.8 *L 3.5-5.1 mmol/L Chloride Level 99 L 101-111 mmol/L Carbon Dioxide Level 30 21-32 mmol/L Blood Urea Nitrogen 104 #*H 7-18 mg/dL Creatinine 5.1 H 0.5-1.3 mg/dL Glomerular Filtration Rate Calc 11 >90 mL/min Random Glucose 69 L 70-105 mg/dL Total Calcium 7.1 L 8.5-10.1 mg/dL Magnesium Level 1.70 L 1.80-2.40 mg/dL Total Bilirubin 0.6 0.2-1.0 mg/dL Aspartate Amino Transf (AST/SGOT) 30 10-37 U/L Alanine Aminotransferase (ALT/SGPT) 23 # 12-78 U/L Alkaline Phosphatase 193 #H 50-136 U/L Total Protein 5.5 L 6.0-8.3 g/dL Albumin 2.2 L 3.5-5.0 g/dL Segmented Neutrophils % 96 H 40-70 % Lymphocytes % (Manual) 1 L 22-44 % Monocytes % (Manual) 3 2-9 % Differential Comment MANUAL DIFFERENTIAL White Cell Morphology Comment See comments Platelet Morphology Comment ADEQUATE Red Blood Cell Morphology See comments Prothrombin Time 17.8 H 9.6-11.6 SEC Prothromb Time International Ratio 1.78 H 0.85-1.15 Activated Partial Thromboplast Time 39.4 H 26.3-35.5 SEC Phosphorus Level 8.1 H 2.5-4.9 mg/dL Bedside Glucose Comment Notified Nurse Test 06/30/24 15:20 Range/Units Hemoglobin A1c 7.4 H 4.0-6.0 % Estimated Average Glucose (eAG) 166 H 70-126 mg/dL Iron Level 32 #L 65-175 mcg/dL Total Iron Binding Capacity 75 L 250-450 mcg/dL Percent Iron Saturation 42.6 30-44 % Ferritin 424 H 30-400 ng/mL Triglycerides Level 64 30-200 mg/dL Cholesterol Level 167 <200 mg/dL LDL Cholesterol 86 0-99 mg/dL HDL Cholesterol 33 29-71 mg/dL Hepatitis B Surface Antigen. Non-Reactive Nonreactive Hepatitis B Surface Antibody. Negative L Reactive Hepatitis B Core Total Antibody. Non-Reactive Nonreactive Hepatitis C Antibody Non-Reactive Nonreactive HIV (1&2) Antibody Non-Reactive Negative HIV P24 Antigen, Qualitative Non-Reactive Negative Current Medications Medications (Trade) Dose Ordered Sig/Roderick Route PRN Reason Start Time Stop Time Status Last Admin Dose Admin Albuterol Sulfate (Proventil 0.083% 2.5mg/3ml) 10 mg ONCE STAT IH 06/17/24 04:05 06/17/24 04:12 DC 06/17/24 04:31 10 MG Amiodarone HCl 360 mg/Dextrose 200 ml @ 0 mls/hr PROTOCOL IV 06/24/24 14:30 06/25/24 09:16 DC 06/24/24 15:51 33.33 MLS/HR Amiodarone HCl 540 mg/Dextrose 300 ml @ 0 mls/hr PROTOCOL IV 06/24/24 21:00 07/24/24 20:59 06/24/24 20:42 16.7 MLS/HR Amlodipine Besylate (NorvASC 5MG TAB) 5 mg BID PO 06/22/24 09:00 07/22/24 08:59 07/02/24 09:06 5 MG Apixaban (EliquIS) 5 mg BID PO 06/24/24 14:30 06/30/24 19:54 DC 06/30/24 11:10 5 MG Calcium Carbonate (Tums 500 Mg Chew Tab) 500 tab ONCE PO 06/26/24 15:30 07/26/24 15:29 Cancel Calcium Carbonate (Tums 500 Mg Chew Tab) 500 tab Q6H6 PRN PO GI UPSET/UPSET STOMACH 06/28/24 12:00 07/28/24 11:59 07/02/24 13:29 1 TAB Calcium Gluconate (Calcium Gluc 1gm Vial) 1 gm AD STAT IV 06/17/24 04:05 06/17/24 04:12 DC 06/17/24 04:21 1 GM Cefepime HCl (MAXipime 1 GM vial) 0.25 gm Q24H IVPB 06/17/24 04:00 06/18/24 04:06 DC 06/17/24 04:58 0.25 GM Cefepime HCl (MAXipime 1 GM vial) 1 gm Q24H IVPB 06/20/24 05:00 06/22/24 16:09 DC 06/22/24 03:12 1 GM Cefepime HCl 0.25 gm/Sodium Chloride 50 ml @ 100 mls/hr Q24H IVPB 06/18/24 04:30 06/19/24 10:58 DC 06/19/24 05:26 100 MLS/HR Dextrose (D50w) 50 ml AD PRN IV HYPOGLYCEMIA PROTOCOL 06/17/24 01:00 06/17/24 01:01 DC Dextrose (D50w) 50 ml AD PRN IV HYPOGLYCEMIA PROTOCOL 06/17/24 01:00 07/17/24 00:59 Dextrose (D50w) 50 ml ONCE STAT IV 06/17/24 04:05 06/17/24 04:12 DC 06/17/24 04:21 50 ML Epoetin Rylan-epbx (Retacrit) 10,000 unit [id number] SQ 06/24/24 14:00 06/24/24 13:53 DC Epoetin Rylan-epbx (Retacrit) 10,000 unit QMOWEFR@1600 SQ 06/29/24 15:00 07/29/24 14:59 07/01/24 17:01 10,000 UNIT Epoetin Rylan-epbx (Retacrit) 10,000 unit QWEEK SQ 06/24/24 14:00 06/29/24 14:23 DC 06/24/24 14:37 10,000 UNIT Famotidine (Pepcid 20mg Vial) 20 mg Q48H IV 06/17/24 01:00 07/17/24 00:59 07/01/24 01:35 20 MG Folic Acid (FOLic ACID 1 MG TABLET) 1 mg DAILY PO 06/25/24 09:00 07/25/24 08:59 07/02/24 09:07 1 MG Furosemide (LASix 40MG VIAL) 40 mg Q12H IV 06/28/24 21:00 07/02/24 10:34 DC 07/02/24 09:05 40 MG Furosemide (LASix 40MG VIAL) 40 mg Q8H IV 06/19/24 18:30 06/20/24 18:31 DC 06/20/24 18:54 40 MG Glucagon (Glucagon 1mg Kit) 1 mg AD PRN IM HYPOGLYCEMIA PROTOCOL 06/17/24 01:00 06/17/24 01:01 DC Glucagon (Glucagon 1mg Kit) 1 mg AD PRN IM HYPOGLYCEMIA PROTOCOL 06/17/24 01:00 07/17/24 00:59 Heparin Sodium (Porcine) (HEParin 5,000 UNIT VIAL) 10,000 unit AD IRRIG 07/01/24 14:00 07/31/24 13:59 Hydralazine HCl ([id number] TAB) 25 mg TID PO 06/22/24 09:00 07/22/24 08:59 07/02/24 09:05 25 MG Hydrocortisone Sodium Succinate (Solu-corTEF 100MG) 50 mg ONCE@1930 IV 06/22/24 19:30 06/22/24 22:30 DC 06/22/24 19:59 50 MG Hydrocortisone Sodium Succinate (Solu-corTEF 100MG) 50 mg Q8H IV 06/18/24 11:30 06/22/24 15:46 DC 06/22/24 03:12 50 MG Hydrocortisone Sodium Succinate (Solu-corTEF 100MG) 50 mg Q8H6 IV 06/23/24 06:00 07/23/24 05:59 07/01/24 21:38 50 MG Hydromorphone HCl (DiLAUDid 0.5MG INJ) 0.5 mg Q4H PRN IVP SEVERE PAIN (7-10) 06/20/24 13:00 06/25/24 12:59 DC 06/21/24 23:50 0.5 MG Insulin Human Regular (humuLIN R 100 UNIT/ML 3ML) 10 unit ONCE STAT IV 06/17/24 04:05 06/17/24 04:12 DC 06/17/24 04:28 10 UNIT Insulin Human Regular (humuLIN R 100 UNIT/ML 3ML) INSULIN SLIDING SCAL... ACHS SQ 06/17/24 07:30 07/17/24 07:29 07/01/24 20:14 4 UNIT Lactated Ringer's 1,000 ml @ 130 mls/hr Q7H42M IV 06/21/24 09:30 06/28/24 09:51 DC 06/28/24 09:03 130 MLS/HR Lactobacillus Rhamnosus ([facility]) 1 each BID PO 06/28/24 10:00 07/28/24 09:59 07/02/24 09:05 1 EACH Leptospermum Honey ([facility]) 1 appl DAILY TP 06/19/24 09:00 07/19/24 08:59 07/02/24 09:07 1 APPL Magnesium Sulfate 50 ml @ 0 mls/hr PROTOCOL PRN IV MAGNESIUM PROTOCOL 06/23/24 11:30 07/23/24 11:29 06/29/24 15:22 25 MLS/HR Metoprolol Tartrate (loprESSOR) 25 mg BID PO 06/24/24 14:30 07/24/24 14:29 07/02/24 09:06 25 MG Metronidazole/ Sodium Chloride (flaGYL) 500 mg Q8H IV 06/17/24 05:00 06/27/24 04:59 DC 06/26/24 21:48 500 MG Micafungin Sodium 100 ml @ 100 mls/hr Q24H IV 06/18/24 00:00 07/18/24 00:00 07/02/24 00:23 100 MLS/HR Morphine Sulfate (morPHINE 2MG SYG) 2 mg Q4H PRN IVP SEVERE PAIN (7-10) 06/29/24 00:30 07/01/24 16:10 DC 07/01/24 01:35 2 MG Norepinephrine 250 ml @ 0 mls/hr PROTOCOL IV 06/16/24 22:00 06/22/24 07:20 DC 06/17/24 05:33 24.5 MLS/HR Ondansetron HCl (zoFRAN 4MG INJ) 4 mg Q6H PRN IVP NAUSEA/VOMITING 06/23/24 20:30 07/23/24 20:29 06/30/24 21:38 4 MG Pharmacy Profile Note (Lace Assessment) 1 each AD MISC 06/19/24 15:30 06/20/24 12:49 DC Pharmacy Profile Note (Pharmacy Communication) 1 each ONCE MISC 06/17/24 23:00 06/19/24 07:13 DC 06/17/24 23:31 1 EACH Pharmacy Profile Note (Pharmacy Communication) 1 each ONCE MISC 06/22/24 16:30 06/23/24 07:22 DC Pharmacy Profile Note (Pharmacy Communication) 1 each ONCE MISC 06/30/24 12:30 06/30/24 12:08 DC Pharmacy Profile Note (Pharmacy Communication) 1 each ONCE MISC 06/30/24 14:30 06/30/24 14:16 DC Phenylephrine HCl 100 mg/Sodium Chloride 250 ml @ 0 mls/hr AD PRN IV TITRATE 06/17/24 10:30 06/22/24 07:20 DC 06/18/24 05:48 27 MLS/HR Piperacillin Sod/ Tazobactam Sod (Zosyn 3.375gm+NS 50ml) 3.375 gm Q12H IV 06/16/24 21:30 06/17/24 01:03 DC 06/16/24 21:42 3.375 GM Piperacillin Sod/ Tazobactam Sod (Zosyn 3.375gm+NS 50ml) 3.375 gm Q12H IVPB 06/17/24 01:00 06/17/24 04:00 DC 06/17/24 02:54 3.375 GM Potassium Chloride 100 ml @ 100 mls/hr AD PRN IV POTASSIUM PROTOCOL 06/21/24 08:00 07/21/24 07:59 07/01/24 05:21 100 MLS/HR Potassium Chloride 100 ml @ 100 mls/hr AD PRN IV POTASSIUM PROTOCOL 06/23/24 11:30 07/23/24 11:29 Potassium Chloride (K-Dur/Klor-Con 20meq) 20 meq AD PRN PO POTASSIUM PROTOCOL 06/23/24 11:30 07/23/24 11:29 07/02/24 09:36 20 MEQ Potassium Chloride (K-Dur/Klor-Con 20meq) 40 meq BID PO 06/22/24 09:00 06/22/24 21:01 DC 06/22/24 19:54 40 MEQ Potassium Chloride (K-Dur/Klor-Con 20meq) 40 meq BID PO 06/25/24 09:00 06/28/24 09:51 DC 06/27/24 09:23 40 MEQ Potassium Chloride (KCl 10% Elixir 20meq/15ml) 20 meq AD PRN PO POTASSIUM PROTOCOL 06/23/24 11:30 07/23/24 11:29 Sodium Bicarbonate / Dextrose 1,000 ml @ 0 mls/hr Q0M IVP 06/17/24 05:00 06/17/24 04:58 DC Sodium Bicarbonate 150 meq/Dextrose 1,150 ml @ 50 mls/hr Q23H IVP 06/18/24 08:00 06/19/24 12:24 DC 06/18/24 20:23 100 MLS/HR Sodium Bicarbonate 150 meq/Dextrose 1,150 ml @ 100 mls/hr [id number] IVP 06/17/24 05:00 06/18/24 04:44 DC 06/17/24 21:00 100 MLS/HR Sodium Polystyrene Sulfonate (kayEXALate 15 GM/60 ML) 15 gm Q2H PO 06/16/24 21:30 06/16/24 23:31 DC 06/16/24 22:21 15 GM Sodium Chloride 1,000 ml @ 0 mls/hr ONCE IV 07/01/24 14:00 07/31/24 13:59 07/02/24 10:51 100 MLS/HR Sodium Chloride 1,000 ml @ 150 mls/hr Q6H40M IV 06/16/24 23:00 06/17/24 09:10 DC 06/17/24 05:15 150 MLS/HR Sodium Chloride (NS 50ml) 50 ml AD IV 06/17/24 01:00 06/17/24 01:05 DC Sucralfate (Carafate) 1 gm BID PO 06/28/24 12:30 06/28/24 22:30 DC 06/28/24 20:56 1 GM Thiamine HCl (Vitamin B-1) 100 mg DAILY IVP 06/17/24 09:00 07/17/24 08:59 07/02/24 09:06 100 MG Tigecycline 100 mg/Sodium Chloride 100 ml @ 200 mls/hr ONCE IV 06/22/24 16:30 06/23/24 07:21 DC 06/22/24 18:51 200 MLS/HR Tigecycline 50 mg/ Sodium Chloride 100 ml @ 200 mls/hr BID@0600,1800 IV 06/23/24 06:00 06/30/24 05:59 DC 06/29/24 17:57 200 MLS/HR Tigecycline 50 mg/ Sodium Chloride 100 ml @ 200 mls/hr BID@0600,1800 IV 06/30/24 18:00 06/30/24 19:53 DC 06/30/24 19:50 200 MLS/HR Tigecycline 50 mg/ Sodium Chloride 100 ml @ 200 mls/hr BID@0800,2000 IV 07/01/24 08:00 07/10/24 07:59 07/02/24 09:06 200 MLS/HR Vancomycin HCl (Vancomycin 750mg) 750 mg Q96H IVPB 06/20/24 22:00 06/17/24 14:00 DC Vancomycin HCl (Vancomycin Protocol) 1 each AD IV 06/17/24 01:30 06/17/24 14:01 DC Vitamin B Complex/ Vit C/Folic Acid (Nephrovite Tablet) 1 cap DAILY PO 06/24/24 09:00 07/24/24 08:59 07/02/24 09:05 1 CAP Wound Care/ Dressing Products (Venelex Ointment) 1 APPL BID TP 06/28/24 21:00 07/28/24 20:59 07/02/24 09:07 1 GM DIAGNOSTICS / RADIOLOGY: [ ] ASSESSMENT: Severe metabolic acidosis, resolved POA Septic shock requiring vasopressor, resolved POA Paroxysmal afib with RVR, rate controlled Fungemia 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, POA Acute on chronic renal failure, progressing to ESRD POA New onset ESRD on dialysis Hyperkalemia, resolved Hypokalemia Chronic anemia POA Acute thrombocytopenia POA Failure to thrive POA Acute encephalopathy, improving DM2 last A1c 7.3 Dyslipidemia Peripheral artery disease Osteomyelitis with recent 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 Nephrology consulted, appreciate recommendations Stop LR @ 130 cc/hr Start furosemide 40mg IV BID Continue clear liquid diet, will advance tomorrow GI consulted, appreciate recommendations Hematology consulted, appreciate recommendations Anemia workup. Transfuse as needed. Hematology consultation requested per Follow critical care input and recommendation Disposition: Pending dialysis, AV fistula creation, placement AL CARDONA MD July 02, 2024 14:23
--- NOTE | 2024-07-02 16:17 | HMCIMG ---
CHEST 1VW HISTORY: Pneumothorax COMPARISON: None FINDINGS: A frontal projection of the chest was obtained. Bilateral lower lung pulmonary infiltrates are seen. The heart is borderline enlarged. Degenerative changes are seen. No evidence of aortic calcification is seen. IMPRESSION: 1. Bilateral lower lung pulmonary infiltrates.
[2024-07-02] MEDS: MAG/ALUM/SIMETH 30 ML UDCUP PO ONE (16:33)
--- NOTE | 2024-07-02 17:45 | PN ---
[facility] PROGRESS NOTE Date Patient Seen: July 02, 2024 Time of Visit: 17:44 Supervising Physician: Dr. Arpit Stanford Supervising Physician: Dr. Archer Primary Care Physician: [None-recently relocated from [place]] Outpatient Specialists: [ ] Inpatient Consults: BIS team, nephro: Dr. Dowd, cardio: Dr. Bae] PROBLEM LIST: NETO on CKD POA resolving Uremia-POA Enterocolitis POA Cholelithiasis Mild Distal colonic Diverticulosis POA Severe hyperkalemia-POA Resolved Thrombocytopenia-POA. resolved Severe lactic acidosis-POA, resolved NSTEM Type II from septic shock on arrival INTERVAL HISTORY: No major over night events. Pt is awake alert and oriented x 3 . no further episodes of nausea or vomiting, BNP 3180, He contiues on lasix 40mg IV q 12hrs per nephrology recs. Urine output 1.4 L. Ches XR with bilateral pulmonary vascular congestion. He is pending SNF per case management. currently on 2L. 07/01/2024: At the time of my evaluation, the patient was lying in. The staff nurse reports acute events overnight. The patient remains on cannula and on the monitor he is hemodynamically stable. Laboratory data was notable for a s interval increase of WBC to 11.7, sodium of 134, potassium of 3.0, chloride 94, CO2 24, BUN of 138, creatinine of 6.2 and a GFR of 9. odium count of 135, potassium of 3.4, chloride of 95, CO2 of 24, BUN of 137, creatinine of 6.4. No new imaging for review. No other complaint. 07/02/2024: At the time of my evaluation, the patient is lying in bed. He warts feeling better today. The patient underwent hemodialysis today 2nd consecutive hemodialysis. On the monitor, the patient is hemodynamically stable and is currently on room air. Laboratory data today showed resolved leukocytosis. H and H and platelet count is stable. Chemistry panel did show a sodium count of 141, a potassium of 2.8, chloride of 99, BUN of 104, creatinine of 5.1 and a GFR of 11. Total calcium of 7.1, magnesium of 1.7. Total protein of 5.5 and a albumin of 2.2. Chest imaging today, showed concern for small pneumothorax per the radiologist's report. The patient continues on antibiotic therapy with Tygacil and micafungin. No complaint. REVIEW OF SYSTEMS: Unable to perform 12 point ROS due to patient's encephalopathy. PHYSICAL EXAM: GENERAL: Awake, Alert. Generally weak HEENT: Normocephalic, atraumatic, dry mucosa NECK: Supple, no JVD, trachea midline LUNGS: Clear breath sounds bilaterally. No wheezes HEART: Regular rate and rhythm. Normal S1 and S2, positive murmurs , tachycardic ABD: Abdomen soft, nontender. Bowel sounds present EXT: No clubbing, cyanosis, or edema, bilateral feet wound with toe amputations with dressing CDI NEURO: Awake alert and oriented x 3 Vital Signs (last 8hr) Date Time Temp Pulse Resp B/P (MAP) Pulse Ox O2 Delivery O2 Flow Rate FiO2 07/02/24 13:25 97.5 75 14 141/71 Room Air 07/02/24 13:15 73 14 113/68 Room Air 07/02/24 13:00 80 14 119/66 Room Air 07/02/24 12:45 78 14 128/68 Room Air 07/02/24 12:30 77 14 140/76 Room Air 07/02/24 12:15 75 14 128/69 Room Air 07/02/24 12:06 98.4 72 20 150/76 97 Room Air 07/02/24 12:00 75 14 135/72 Room Air 07/02/24 11:45 74 14 141/75 Room Air 07/02/24 11:30 77 14 145/98 Room Air 07/02/24 11:15 72 14 150/76 Room Air 07/02/24 11:00 76 14 144/76 Room Air 07/02/24 10:45 97.9 84 14 117/79 Room Air 07/02/24 10:38 98 Nasal Cannula* 2 28 07/02/24 10:25 97.9 76 14 139/75 Room Air LABS: Hematology Labs: Test 07/02/24 03:07 07/01/24 04:03 Range/Units White Blood Count 10.6 4.8-10.8 K/uL Red Blood Count 3.36 L 4.50-6.20 MIL/uL Hemoglobin 10.0 L 14.0-18.0 g/dL Hematocrit 29.1 L 42-54 % Mean Corpuscular Volume 86.6 79-99 fL Mean Corpuscular Hemoglobin 29.8 27.0-33.0 pg Mean Corpuscular Hemoglobin Concent 34.4 32.0-36.0 g/dL Red Cell Distribution Width 16.0 H 11.0-15.5 % Platelet Count 339 130-400 K/uL Mean Platelet Volume 11.3 H 7.5-10.5 fL Immature Granulocyte % (Auto) 0.5 0-1 % Neutrophils (%) (Auto) 86.5 H 40.0-77.0 % Lymphocytes (%) (Auto) 3.4 L 21.0-51.0 % Monocytes (%) (Auto) 9.6 3.0-13.0 % Eosinophils (%) (Auto) 0.0 0.0-8.0 % Basophils (%) (Auto) 0.0 0.0-5.0 % Neutrophils # (Auto) 9.1 H 1.8-7.7 K/uL Lymphocytes # (Auto) 0.4 L 1.0-4.8 K/uL Monocytes # (Auto) 1.0 0.1-1.0 K/uL Eosinophils # (Auto) 0.00 0.00-0.70 K/uL Basophils # (Auto) 0.00 0.00-0.20 K/uL Absolute Immature Granulocyte (auto 0.05 0-1 K/uL Nucleated Red Blood Cells 0.0 0.0-0.19 % Segmented Neutrophils % 96 H 40-70 % Lymphocytes % (Manual) 1 L 22-44 % Monocytes % (Manual) 3 2-9 % Differential Comment MANUAL DIFFERENTIAL White Cell Morphology Comment See comments Platelet Morphology Comment ADEQUATE Red Blood Cell Morphology See comments Chemistry Labs: Test 07/02/24 16:36 07/02/24 03:07 07/01/24 04:03 06/30/24 20:52 Range/Units Whole Blood Glucose 173 H 70-110 MG/DL Sodium Level 141 136-145 mmol/L Potassium Level 2.8 *L 3.5-5.1 mmol/L Chloride Level 99 L 101-111 mmol/L Carbon Dioxide Level 30 21-32 mmol/L Blood Urea Nitrogen 104 #*H 7-18 mg/dL Creatinine 5.1 H 0.5-1.3 mg/dL Glomerular Filtration Rate Calc 11 >90 mL/min Random Glucose 69 L 70-105 mg/dL Total Calcium 7.1 L 8.5-10.1 mg/dL Magnesium Level 1.70 L 1.80-2.40 mg/dL Total Bilirubin 0.6 0.2-1.0 mg/dL Aspartate Amino Transf (AST/SGOT) 30 10-37 U/L Alanine Aminotransferase (ALT/SGPT) 23 # 12-78 U/L Alkaline Phosphatase 193 #H 50-136 U/L Total Protein 5.5 L 6.0-8.3 g/dL Albumin 2.2 L 3.5-5.0 g/dL Phosphorus Level 8.1 H 2.5-4.9 mg/dL Bedside Glucose Comment Notified Nurse Coagulation Labs: Test 07/01/24 04:03 Range/Units Prothrombin Time 17.8 H 9.6-11.6 SEC Prothromb Time International Ratio 1.78 H 0.85-1.15 Activated Partial Thromboplast Time 39.4 H 26.3-35.5 SEC DIAGNOSTICS / RADIOLOGY RESULTS: [ ] PLAN Disposition as per primary Pending SNF continue on supplemental oxygen aspiration precautions nutritional support 07/01/2024: For now, going to continue current management for the patient. He is going to continue on oxygen supplementation as ordered. Nephrology discussed with the patient regarding the need for renal replacement therapy to which the patient has agreed and today he underwent a right IJ tunneled hemodialysis catheter placement. Plans are to start hemodialysis later today. We will con tinue antibiotic/antifungal therapy as ordered. We will follow the recommendation of the treating specialist. We will monitor the patient's progress and response to management. Further orders per attending MD and hospital course. 07/02/2024: For now, we will continue current management for the patient. We will continue antibiotic therapy as ordered. Per the speech communication instructor, we will hold dialysis tomorrow. I am going to repeat a potassium and magnesium level now to ensure adequate correction. If needs be, we will continue to replace electrolytes as necessary. We will follow the recommendation of the treating specialist. We will continue to provide general supportive care, GI and DVT prophylaxis. Further orders per attending MD and hospital course. NEURO: Minimize central acting medications as possible. Maintain fall precautions, adequate lighting during the day PULMONARY: Supplemental 02 as needed. Maintain aspiration precautions at all times CARDIOVASCULAR: Follow hemodynamics. Vital signs per facility protocol GI & NUTRITION: Continue with nutritional support. Continue stool softeners and laxatives as needed. KIDNEYS & ELECTROLYTES: Strict monitoring of intake, output and overall fluid balance. Avoid nephrotoxic medications to the extent possible. Medications to be dosed according to renal function. Monitor electrolytes and replace as needed ENDOCRINE: Maintain blood glucose between 100-180 at all times. Hypoglycemia protocol in place INFECTIOUS DISEASE: Trend temperature, WBC and procalcitonin level Follow cultures, deescalate antibiotics as soon as possible. Panculture if new onset fever ONCOLOGY/HEMATOLOGY/COAGULATION: Monitor for s/s of bleeding Monitor hemoglobin, coagulation studies as needed SKIN: Pressure ulcer prevention per facility protocol Specialty mattress ORTHO/REHAB: Continue PT/OT Prophylaxis: Continue GI and DVT prophylaxis Code Status: Full Resuscitation Disposition: PCCU LALI BOLDEN NP July 02, 2024 17:45
[2024-07-02 18:16] LABS: MAGNESIUM 1.6 mg/dL (1.80-2.40)
[2024-07-02 18:20] LABS: POTASSIUM 2.9 mmol/L (3.5-5.1)
--- NOTE | 2024-07-02 20:20 | PN ---
NEPHROLOGY NOTE SUBJECTIVE: The patient has been evaluated and seen for dialysis and seen several times. The patient is critically ill at this time. No other associated findings. No other aggravating or relieving factor. PHYSICAL EXAMINATION: GENERAL: Pale, no other distress. VITAL SIGNS: Blood pressure is 147/66, pulse 83, respiratory rate 20, afebrile. HEENT: Head is atraumatic. Pupils are round and reactive. Sclerae anicteric. Conjunctiva not pale. Oral mucosa is not dry. NECK: Supple. No masses or bruits. Thyroid is palpable. Neck has no bruits. LABORATORY DATA: We have reviewed the labs in detail and old records reviewed. IMAGING STUDIES: Personally reviewed. PROBLEMS: Renal failure, anemia, electrolyte problems. PLAN: Continue monitoring. Discontinue Lasix. Continue dialysis support and high potassium bath. The patient was seen for dialysis and seen multiple times today. Overall condition has been poor. The patient has been treated for sepsis. TID: [id number] RECEIPT: [id number]
--- NOTE | 2024-07-02 20:35 | PN ---
NEPHROLOGY NOTE SUBJECTIVE: This patient has multiple problems, renal failure, anemia. The patient has underlying hypertension, electrolyte problems, renal failure has probably reached end stage. We will need outpatient dialysis. The patient has no other associated findings. PHYSICAL EXAMINATION: GENERAL: Critically ill, lying in bed. VITAL SIGNS: Blood pressure is 147/66, pulse 83, respiratory rate is 20, afebrile. HEENT: Head is atraumatic, normocephalic. Pupils are round and reactive. Sclerae anicteric. Conjunctivae not pale. Oral mucosa is not dry. NECK: Without masses or bruits. Thyroid is palpable. Neck has no bruits. LABORATORY DATA: Have been reviewed. The patient has very low potassium, low hemoglobin. PROBLEMS: Renal failure, anemia, multiple other comorbidities PLAN: Continue dialysis support. Adjust potassium. Seen several times. The patient's condition remained guarded. The patient is treated for sepsis. Condition is critical and guarded. TID: [id number] RECEIPT: [id number]
[2024-07-03] VITALS (9 sets, daily range): BP systolic 115–144; BP diastolic 66–82; PULSE 63–79; RESP 17–22; TEMP 97.6–98.3; O2SAT 96–97
[2024-07-03 05:34] LABS: HEMATOCRIT 30.5 % (42-54); MEAN CORPUSCULAR HEMOGLOBIN 29.9 pg (27.0-33.0); MEAN CORPUSCULAR HGB CONC 34.8 g/dL (32.0-36.0); MEAN CORPUSCULAR VOLUME 85.9 fL (79-99); PLATELET COUNT (AUTO) 267 K/uL (130-400); RED BLOOD CELL COUNT(AUTO) 3.55 MIL/uL (4.50-6.20); RED CELL DISTRIBUTION WIDTH 16.2 % (11.0-15.5); WHITE BLOOD COUNT (AUTO) 13.3 K/uL (4.8-10.8)
[2024-07-03 05:46] LABS: ALBUMIN 2.3 g/dL (3.5-5.0); BILIRUBIN,TOTAL 0.8 mg/dL (0.2-1.0); CREATININE 3.9 mg/dL (0.5-1.3); PHOSPHORUS 5.5 mg/dL (2.5-4.9); TOTAL PROTEIN, SERUM 5.7 g/dL (6.0-8.3)
[2024-07-03 06:23] LABS: BASOPHILS # (AUTO) 0.01 K/uL (0.00-0.20); BASOPHILS % (AUTO) 0.1 % (0.0-5.0); EOSINOPHILS # (AUTO) 0.01 K/uL (0.00-0.70); EOSINOPHILS % (AUTO) 0.1 % (0.0-8.0); IMMATURE GRANULOCYTE ABSOLUTE 0.08 K/uL (0-1); LYMPHOCYTES # (AUTO) 0.4 K/uL (1.0-4.8); LYMPHOCYTES % (AUTO) 2.6 % (21.0-51.0); MONOCYTES # (AUTO) 0.9 K/uL (0.1-1.0); NEUTROPHILS # (AUTO) 11.9 K/uL (1.8-7.7); NEUTROPHILS % (AUTO) 89.6 % (40.0-77.0)
--- NOTE | 2024-07-03 08:44 | PN ---
[facility] PROGRESS NOTE Date of Visit: July 03, 2024 Time of Visit: 08:44 Events / Notes: [ ] Review of Systems: CONSTITUTIONAL: No malaise or change in sensation of wellbeing. ENMT: No rhinorrhea, otorrhea, sinus pain, ear ache. CARDIOVASCULAR: No angina, palpitations, orthopnea or paroxysmal dyspnea. RESPIRATORY: No SOB. GASTROINTESTINAL: No abdominal pain, nausea, vomiting, diarrhea, hematemesis, melena or change in the patient's habitual bowel movements consistency/number. GENITOURINARY: No dysuria, hematuria or change in bladder continence. MUSCULOSKELETAL: No new muscle pain or decrease in muscular strength. No new joint swelling, redness or tenderness. SKIN: No new rash. Physical Exam: GEN: Awake, alert, oriented in person, time and place, and in no acute distress. HEENT: No sinus tenderness. Tympanic membranes were not examined. No rhinorrhea. Oral pharyngeal mucosa is pink, moist and within normal limits. Neck is supple with no cervical lymphadenopathy, thyromegaly or JVD. CHEST: Inspection, palpation and percussion of the chest were unremarkable. Lung auscultation revealed normal breath sounds bilaterally. CARDIAC: PMI is within normal limits. Heart sounds are regular. Normal S1, S2. No gallop or murmur. ABD: Soft, non-tender and not distended. No peritoneal signs on palpation. No organomegaly. Normal bowel sounds. EXT: No cyanosis or clubbing. No edema. SKIN: Intact. No rashes. JOINTS: No evidence of synovitis or acute arthritis. NEURO: Alert and oriented to name, place and person. Cranial nerve examination is unremarkable. No focal motor deficits. Normal speech. Gait is normal. Strength is normal. Vital Signs (last 8hr) Date Time Temp Pulse Resp B/P (MAP) Pulse Ox O2 Delivery O2 Flow Rate FiO2 07/03/24 04:00 97.9 70 20 141/68 93 Nasal Cannula 2.0 Laboratory: [ ] Laboratory: Test 07/03/24 05:28 07/03/24 05:27 Range/Units White Blood Count 13.3 H 4.8-10.8 K/uL Red Blood Count 3.55 L 4.50-6.20 MIL/uL Hemoglobin 10.6 L 14.0-18.0 g/dL Hematocrit 30.5 L 42-54 % Mean Corpuscular Volume 85.9 79-99 fL Mean Corpuscular Hemoglobin 29.9 27.0-33.0 pg Mean Corpuscular Hemoglobin Concent 34.8 32.0-36.0 g/dL Red Cell Distribution Width 16.2 H 11.0-15.5 % Platelet Count 267 130-400 K/uL Mean Platelet Volume 11.2 H 7.5-10.5 fL Immature Granulocyte % (Auto) 0.6 0-1 % Neutrophils (%) (Auto) 89.6 H 40.0-77.0 % Lymphocytes (%) (Auto) 2.6 L 21.0-51.0 % Monocytes (%) (Auto) 7.0 3.0-13.0 % Eosinophils (%) (Auto) 0.1 0.0-8.0 % Basophils (%) (Auto) 0.1 0.0-5.0 % Neutrophils # (Auto) 11.9 H 1.8-7.7 K/uL Lymphocytes # (Auto) 0.4 L 1.0-4.8 K/uL Monocytes # (Auto) 0.9 0.1-1.0 K/uL Eosinophils # (Auto) 0.01 0.00-0.70 K/uL Basophils # (Auto) 0.01 0.00-0.20 K/uL Absolute Immature Granulocyte (auto 0.08 0-1 K/uL Nucleated Red Blood Cells 0.0 0.0-0.19 % Sodium Level 137 136-145 mmol/L Potassium Level 3.0 *L 3.5-5.1 mmol/L Chloride Level 97 L 101-111 mmol/L Carbon Dioxide Level 28 21-32 mmol/L Blood Urea Nitrogen 74 H 7-18 mg/dL Creatinine 3.9 H 0.5-1.3 mg/dL Glomerular Filtration Rate Calc 16 >90 mL/min Random Glucose 226 H 70-105 mg/dL Total Calcium 7.5 L 8.5-10.1 mg/dL Phosphorus Level 5.5 H 2.5-4.9 mg/dL Magnesium Level 2.20 1.80-2.40 mg/dL Total Bilirubin 0.8 0.2-1.0 mg/dL Aspartate Amino Transf (AST/SGOT) 30 10-37 U/L Alanine Aminotransferase (ALT/SGPT) 25 12-78 U/L Alkaline Phosphatase 215 H 50-136 U/L Total Protein 5.7 L 6.0-8.3 g/dL Albumin 2.3 L 3.5-5.0 g/dL Whole Blood Glucose 205 H 70-110 MG/DL Current Medications Medications (Trade) Dose Ordered Sig/Roderick Route PRN Reason Start Time Stop Time Status Last Admin Dose Admin Albuterol Sulfate (Proventil 0.083% 2.5mg/3ml) 10 mg ONCE STAT IH 06/17/24 04:05 06/17/24 04:12 DC 06/17/24 04:31 10 MG Amiodarone HCl 360 mg/Dextrose 200 ml @ 0 mls/hr PROTOCOL IV 06/24/24 14:30 06/25/24 09:16 DC 06/24/24 15:51 33.33 MLS/HR Amiodarone HCl 540 mg/Dextrose 300 ml @ 0 mls/hr PROTOCOL IV 06/24/24 21:00 07/24/24 20:59 06/24/24 20:42 16.7 MLS/HR Amlodipine Besylate (NorvASC 5MG TAB) 5 mg BID PO 06/22/24 09:00 07/22/24 08:59 07/02/24 20:57 5 MG Apixaban (EliquIS) 5 mg BID PO 06/24/24 14:30 06/30/24 19:54 DC 06/30/24 11:10 5 MG Calcium Carbonate (Tums 500 Mg Chew Tab) 500 tab ONCE PO 06/26/24 15:30 07/26/24 15:29 Cancel Calcium Carbonate (Tums 500 Mg Chew Tab) 500 tab Q6H6 PRN PO GI UPSET/UPSET STOMACH 06/28/24 12:00 07/28/24 11:59 07/02/24 20:57 500 TAB Calcium Gluconate (Calcium Gluc 1gm Vial) 1 gm AD STAT IV 06/17/24 04:05 06/17/24 04:12 DC 06/17/24 04:21 1 GM Cefepime HCl (MAXipime 1 GM vial) 0.25 gm Q24H IVPB 06/17/24 04:00 06/18/24 04:06 DC 06/17/24 04:58 0.25 GM Cefepime HCl (MAXipime 1 GM vial) 1 gm Q24H IVPB 06/20/24 05:00 06/22/24 16:09 DC 06/22/24 03:12 1 GM Cefepime HCl 0.25 gm/Sodium Chloride 50 ml @ 100 mls/hr Q24H IVPB 06/18/24 04:30 06/19/24 10:58 DC 06/19/24 05:26 100 MLS/HR Dextrose (D50w) 50 ml AD PRN IV HYPOGLYCEMIA PROTOCOL 06/17/24 01:00 06/17/24 01:01 DC Dextrose (D50w) 50 ml AD PRN IV HYPOGLYCEMIA PROTOCOL 06/17/24 01:00 07/17/24 00:59 Dextrose (D50w) 50 ml ONCE STAT IV 06/17/24 04:05 06/17/24 04:12 DC 06/17/24 04:21 50 ML Epoetin Rylan-epbx (Retacrit) 10,000 unit [id number] SQ 06/24/24 14:00 06/24/24 13:53 DC Epoetin Rylan-epbx (Retacrit) 10,000 unit QMOWEFR@1600 SQ 06/29/24 15:00 07/29/24 14:59 07/01/24 17:01 10,000 UNIT Epoetin Rylan-epbx (Retacrit) 10,000 unit QWEEK SQ 06/24/24 14:00 06/29/24 14:23 DC 06/24/24 14:37 10,000 UNIT Famotidine (Pepcid 20mg Vial) 20 mg Q48H IV 06/17/24 01:00 07/17/24 00:59 07/03/24 00:42 20 MG Folic Acid (FOLic ACID 1 MG TABLET) 1 mg DAILY PO 06/25/24 09:00 07/25/24 08:59 07/02/24 09:07 1 MG Furosemide (LASix 40MG VIAL) 40 mg Q12H IV 06/28/24 21:00 07/02/24 10:34 DC 07/02/24 09:05 40 MG Furosemide (LASix 40MG VIAL) 40 mg Q8H IV 06/19/24 18:30 06/20/24 18:31 DC 06/20/24 18:54 40 MG Glucagon (Glucagon 1mg Kit) 1 mg AD PRN IM HYPOGLYCEMIA PROTOCOL 06/17/24 01:00 06/17/24 01:01 DC Glucagon (Glucagon 1mg Kit) 1 mg AD PRN IM HYPOGLYCEMIA PROTOCOL 06/17/24 01:00 07/17/24 00:59 Heparin Sodium (Porcine) (HEParin 5,000 UNIT VIAL) 10,000 unit AD IRRIG 07/01/24 14:00 07/31/24 13:59 Hydralazine HCl ([id number] TAB) 25 mg TID PO 06/22/24 09:00 07/22/24 08:59 07/02/24 21:00 25 MG Hydrocortisone Sodium Succinate (Solu-corTEF 100MG) 50 mg ONCE@1930 IV 06/22/24 19:30 06/22/24 22:30 DC 06/22/24 19:59 50 MG Hydrocortisone Sodium Succinate (Solu-corTEF 100MG) 50 mg Q8H IV 06/18/24 11:30 06/22/24 15:46 DC 06/22/24 03:12 50 MG Hydrocortisone Sodium Succinate (Solu-corTEF 100MG) 50 mg Q8H6 IV 06/23/24 06:00 07/23/24 05:59 07/03/24 06:41 50 MG Hydromorphone HCl (DiLAUDid 0.5MG INJ) 0.5 mg Q4H PRN IVP SEVERE PAIN (7-10) 06/20/24 13:00 06/25/24 12:59 DC 06/21/24 23:50 0.5 MG Insulin Human Regular (humuLIN R 100 UNIT/ML 3ML) 10 unit ONCE STAT IV 06/17/24 04:05 06/17/24 04:12 DC 06/17/24 04:28 10 UNIT Insulin Human Regular (humuLIN R 100 UNIT/ML 3ML) INSULIN SLIDING SCAL... ACHS SQ 06/17/24 07:30 07/17/24 07:29 07/01/24 20:14 4 UNIT Lactated Ringer's 1,000 ml @ 130 mls/hr Q7H42M IV 06/21/24 09:30 06/28/24 09:51 DC 06/28/24 09:03 130 MLS/HR Lactobacillus Rhamnosus ([facility] [employer]) 1 each BID PO 06/28/24 10:00 07/28/24 09:59 07/02/24 20:57 1 EACH Leptospermum Honey (Medihoney) 1 appl DAILY TP 06/19/24 09:00 07/19/24 08:59 07/02/24 09:07 1 APPL Magnesium Sulfate 50 ml @ 0 mls/hr PROTOCOL PRN IV MAGNESIUM PROTOCOL 06/23/24 11:30 07/23/24 11:29 07/02/24 18:32 25 MLS/HR Metoprolol Tartrate (loprESSOR) 25 mg BID PO 06/24/24 14:30 07/24/24 14:29 07/02/24 20:57 25 MG Metronidazole/ Sodium Chloride (flaGYL) 500 mg Q8H IV 06/17/24 05:00 06/27/24 04:59 DC 06/26/24 21:48 500 MG Micafungin Sodium 100 ml @ 100 mls/hr Q24H IV 06/18/24 00:00 07/18/24 00:00 07/03/24 00:42 100 MLS/HR Morphine Sulfate (morPHINE 2MG SYG) 2 mg Q4H PRN IVP SEVERE PAIN (7-10) 06/29/24 00:30 07/01/24 16:10 DC 07/01/24 01:35 2 MG Norepinephrine 250 ml @ 0 mls/hr PROTOCOL IV 06/16/24 22:00 06/22/24 07:20 DC 06/17/24 05:33 24.5 MLS/HR Ondansetron HCl (zoFRAN 4MG INJ) 4 mg Q6H PRN IVP NAUSEA/VOMITING 06/23/24 20:30 07/23/24 20:29 07/02/24 16:33 4 MG Pharmacy Profile Note (Lace Assessment) 1 each AD MISC 06/19/24 15:30 06/20/24 12:49 DC Pharmacy Profile Note (Pharmacy Communication) 1 each ONCE MISC 06/17/24 23:00 06/19/24 07:13 DC 06/17/24 23:31 1 EACH Pharmacy Profile Note (Pharmacy Communication) 1 each ONCE MISC 06/22/24 16:30 06/23/24 07:22 DC Pharmacy Profile Note (Pharmacy Communication) 1 each ONCE MISC 06/30/24 12:30 06/30/24 12:08 DC Pharmacy Profile Note (Pharmacy Communication) 1 each ONCE MISC 06/30/24 14:30 06/30/24 14:16 DC Phenylephrine HCl 100 mg/Sodium Chloride 250 ml @ 0 mls/hr AD PRN IV TITRATE 06/17/24 10:30 06/22/24 07:20 DC 06/18/24 05:48 27 MLS/HR Piperacillin Sod/ Tazobactam Sod (Zosyn 3.375gm+NS 50ml) 3.375 gm Q12H IV 06/16/24 21:30 06/17/24 01:03 DC 06/16/24 21:42 3.375 GM Piperacillin Sod/ Tazobactam Sod (Zosyn 3.375gm+NS 50ml) 3.375 gm Q12H IVPB 06/17/24 01:00 06/17/24 04:00 DC 06/17/24 02:54 3.375 GM Potassium Chloride 100 ml @ 100 mls/hr AD PRN IV POTASSIUM PROTOCOL 06/21/24 08:00 07/21/24 07:59 07/01/24 05:21 100 MLS/HR Potassium Chloride 100 ml @ 100 mls/hr AD PRN IV POTASSIUM PROTOCOL 06/23/24 11:30 07/23/24 11:29 Potassium Chloride (K-Dur/Klor-Con 20meq) 20 meq AD PRN PO POTASSIUM PROTOCOL 06/23/24 11:30 07/23/24 11:29 07/02/24 18:32 20 MEQ Potassium Chloride (K-Dur/Klor-Con 20meq) 40 meq BID PO 06/22/24 09:00 06/22/24 21:01 DC 06/22/24 19:54 40 MEQ Potassium Chloride (K-Dur/Klor-Con 20meq) 40 meq BID PO 06/25/24 09:00 06/28/24 09:51 DC 06/27/24 09:23 40 MEQ Potassium Chloride (KCl 10% Elixir 20meq/15ml) 20 meq AD PRN PO POTASSIUM PROTOCOL 06/23/24 11:30 07/23/24 11:29 Sodium Bicarbonate / Dextrose 1,000 ml @ 0 mls/hr Q0M IVP 06/17/24 05:00 06/17/24 04:58 DC Sodium Bicarbonate 150 meq/Dextrose 1,150 ml @ 50 mls/hr Q23H IVP 06/18/24 08:00 06/19/24 12:24 DC 06/18/24 20:23 100 MLS/HR Sodium Bicarbonate 150 meq/Dextrose 1,150 ml @ 100 mls/hr [id number] IVP 06/17/24 05:00 06/18/24 04:44 DC 06/17/24 21:00 100 MLS/HR Sodium Polystyrene Sulfonate (kayEXALate 15 GM/60 ML) 15 gm Q2H PO 06/16/24 21:30 06/16/24 23:31 DC 06/16/24 22:21 15 GM Sodium Chloride 1,000 ml @ 0 mls/hr ONCE IV 07/01/24 14:00 07/31/24 13:59 07/02/24 10:51 100 MLS/HR Sodium Chloride 1,000 ml @ 150 mls/hr Q6H40M IV 06/16/24 23:00 06/17/24 09:10 DC 06/17/24 05:15 150 MLS/HR Sodium Chloride (NS 50ml) 50 ml AD IV 06/17/24 01:00 06/17/24 01:05 DC Sucralfate (Carafate) 1 gm BID PO 06/28/24 12:30 06/28/24 22:30 DC 06/28/24 20:56 1 GM Thiamine HCl (Vitamin B-1) 100 mg DAILY IVP 06/17/24 09:00 07/17/24 08:59 07/02/24 09:06 100 MG Tigecycline 100 mg/Sodium Chloride 100 ml @ 200 mls/hr ONCE IV 06/22/24 16:30 06/23/24 07:21 DC 06/22/24 18:51 200 MLS/HR Tigecycline 50 mg/ Sodium Chloride 100 ml @ 200 mls/hr BID@0600,1800 IV 06/23/24 06:00 06/30/24 05:59 DC 06/29/24 17:57 200 MLS/HR Tigecycline 50 mg/ Sodium Chloride 100 ml @ 200 mls/hr BID@0600,1800 IV 06/30/24 18:00 06/30/24 19:53 DC 06/30/24 19:50 200 MLS/HR Tigecycline 50 mg/ Sodium Chloride 100 ml @ 200 mls/hr BID@0800,2000 IV 07/01/24 08:00 07/10/24 07:59 07/02/24 20:56 200 MLS/HR Vancomycin HCl (Vancomycin 750mg) 750 mg Q96H IVPB 06/20/24 22:00 06/17/24 14:00 DC Vancomycin HCl (Vancomycin Protocol) 1 each AD IV 06/17/24 01:30 06/17/24 14:01 DC Vitamin B Complex/ Vit C/Folic Acid (Nephrovite Tablet) 1 cap DAILY PO 06/24/24 09:00 07/24/24 08:59 07/02/24 09:05 1 CAP Wound Care/ Dressing Products (Venelex Ointment) 1 APPL BID TP 06/28/24 21:00 07/28/24 20:59 07/02/24 20:57 1 GM Diagnostics / Radiology: [COPY/PASTE HERE IF NO REPORTS PLEASE DELETE SECTION] Assessment: Positive FOBT Acute blood loss anemia HTN DM Plan: Patient defers Colonoscopy Continue GI prophylaxis Advance diet as tolerated Avoid NSAIDs Antireflux measures Monitor H&H and transfuse as needed Call with questions, concerns or change in clinical status Patient to follow-up at clinic post discharge Thank you for this consult ANGEL BURDEN [employer]IM[employer] TRAINER July 03, 2024 08:44
[2024-07-03] MEDS: SUCRALFATE 1 GM TABLET PO SCH (09:22)
--- NOTE | 2024-07-03 11:26 | NUR ---
[facility] Follow-up: Patient re-assessed by wound healing team. Wound to left foot healed. See wound assessment. Assessment and recommendations provided to primary nurse. Education provided. Addendum: 07/03/24 at 1242 by MATT PEREZ RN RN/ Amended: Links added.
--- NOTE | 2024-07-03 11:54 | PN ---
INFECTIOUS DISEASE PROGRESS NOTE Date of Service: July 03, 2024 SUBJECTIVE: This 69 year old male patient is being seen today at bedside. Awake, alert and oriented x3. Denies chest pain, palpitation or shortness of breath. Patient is calm in no respiratory distress at this time. Continues on antibiotics tolerating well. He remains afebrile. Patient will continue with dialysis tomorrow and possible AV graft as outpatient as per nurse. We will continue to follow patient. PHYSICAL EXAM EYES: Anicteric. Pupils equal and reactive. HENT: No oral thrush seen, moist Oral mucosa. NECK: Supple, no JVD or thyromegaly. LUNGS: Good air entry. No rales, no rhonchi. CARDIOVASCULAR: S1, S2 regular. No murmur heard. ABDOMEN: Soft, non tender, bowel sounds present, no organomegaly. CENTRAL NERVOUS SYSTEM: Awake, alert, oriented x 2. SKIN: No rashes, no swelling. LYMPHATICS: No peripheral lymphadenopathy. MUSCULOSKELETAL: No joint swelling, erythema or tenderness. EXTREMITIES: No cyanosis or clubbing. 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 BACK: No deformity, no pressure ulcer. GENITOURINARY: No dysuria or hematuria. Vital Sign (Last 12 Hours) 07/03/24 07/03/24 07/03/24 00:23 04:00 07:00 Temp 98.1 97.9 98.2 Pulse 79 70 78 Resp 18 20 17 B/P (MAP) 124/72 141/68 134/79 Pulse Ox 95 93 97 O2 Delivery Room Air Nasal Cannula Nasal Cannula O2 Flow Rate 2.0 2.0 Intake & Output (last 24hrs) 07/02/24 07/02/24 07/03/24 15:00 23:00 07:00 Intake Total 100.0 ml 780.0 ml 100.0 ml Output Total 3100 ml 550 ml 1300 ml Balance -3000.0 ml 230.0 ml -1200.0 ml LABS: Laboratory: Test 07/03/24 11:26 07/03/24 05:28 Range/Units Whole Blood Glucose 208 H 70-110 MG/DL White Blood Count 13.3 H 4.8-10.8 K/uL Red Blood Count 3.55 L 4.50-6.20 MIL/uL Hemoglobin 10.6 L 14.0-18.0 g/dL Hematocrit 30.5 L 42-54 % Mean Corpuscular Volume 85.9 79-99 fL Mean Corpuscular Hemoglobin 29.9 27.0-33.0 pg Mean Corpuscular Hemoglobin Concent 34.8 32.0-36.0 g/dL Red Cell Distribution Width 16.2 H 11.0-15.5 % Platelet Count 267 130-400 K/uL Mean Platelet Volume 11.2 H 7.5-10.5 fL Immature Granulocyte % (Auto) 0.6 0-1 % Neutrophils (%) (Auto) 89.6 H 40.0-77.0 % Lymphocytes (%) (Auto) 2.6 L 21.0-51.0 % Monocytes (%) (Auto) 7.0 3.0-13.0 % Eosinophils (%) (Auto) 0.1 0.0-8.0 % Basophils (%) (Auto) 0.1 0.0-5.0 % Neutrophils # (Auto) 11.9 H 1.8-7.7 K/uL Lymphocytes # (Auto) 0.4 L 1.0-4.8 K/uL Monocytes # (Auto) 0.9 0.1-1.0 K/uL Eosinophils # (Auto) 0.01 0.00-0.70 K/uL Basophils # (Auto) 0.01 0.00-0.20 K/uL Absolute Immature Granulocyte (auto 0.08 0-1 K/uL Nucleated Red Blood Cells 0.0 0.0-0.19 % Sodium Level 137 136-145 mmol/L Potassium Level 3.0 *L 3.5-5.1 mmol/L Chloride Level 97 L 101-111 mmol/L Carbon Dioxide Level 28 21-32 mmol/L Blood Urea Nitrogen 74 H 7-18 mg/dL Creatinine 3.9 H 0.5-1.3 mg/dL Glomerular Filtration Rate Calc 16 >90 mL/min Random Glucose 226 H 70-105 mg/dL Total Calcium 7.5 L 8.5-10.1 mg/dL Phosphorus Level 5.5 H 2.5-4.9 mg/dL Magnesium Level 2.20 1.80-2.40 mg/dL Total Bilirubin 0.8 0.2-1.0 mg/dL Aspartate Amino Transf (AST/SGOT) 30 10-37 U/L Alanine Aminotransferase (ALT/SGPT) 25 12-78 U/L Alkaline Phosphatase 215 H 50-136 U/L Total Protein 5.7 L 6.0-8.3 g/dL Albumin 2.3 L 3.5-5.0 g/dL ASSESSMENT: Fungemia. 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 Septic shock, resolving. Anemia requiring blood transfusion, status post EGD. Acute renal failure, new onset dialysis. PLAN: Continue tigecycline IV. Continue micafungin. Continue wound care. Continue dialysis as recommended by [employer]. Avoid nephrotoxic medications. This case was reviewed and discussed with my supervising physician and the above assessment and plan was formulated and agreed upon. RYANN TRAVIS July 03, 2024 11:54
--- NOTE | 2024-07-03 14:09 | NUR ---
Nutritional f/u Note: Chart, meds, and labs Reviewed. Current PO intake inadequate. Pt currently on GI soft Heart healthy diet. RD dietary notification received for PO supplement. Pt receiving HD. Abnormal nutrition related labs: Phos 5.5mg/dl Recommend: -Kamranro w/[place] -Encourage PO supplement intake -Phosphate binder -Consider appetite stimulant if PO intake continues <50% of meals taken -RD to provide further recommendations based on clinical progress. -Monitor feeding tolerance, %, wt, and labs -If No BM >3days consider bowel stimulant. - Please notify RD if additional nutrition concerns arise. Addendum: 07/03/24 at [address] Amended: Links added.
--- NOTE | 2024-07-03 14:56 | PN ---
[facility] PROGRESS NOTE Date of Service: July 03, 2024 Time of Service: 14:53 SUBJECTIVE: Patient is seen and examined at bedside, case discussed with the RN, during my visit the patient resting comfortably in bed, following simple commands, he is on blood pressure support with Levophed, getting sodium bicarbonate IV. BP 108/57, heart rate of 116, saturating 99% on 2 L nasal cannula. Hemoglobin 8.4, hematocrit 27.0, WBC 14.2, platelet count of 28. Sodium 143, potassium 5.0, bicarb of five, BUN 107, creatinine 9.7. ABG with pH of 7.8, pCO2 less than 15, bicarb of 2.3. 06/18 patient has been seen and examined at bedside, case discussed with the RN, patient remains confused, still on pressor support with Levophed and Andrew- Synephrine, patient also on sodium bicarbonate drip. No family members at bedside during my visit. Blood pressure 112/44, heart rate of 91, saturating 93%. CBC with WBC of 16.4, hemoglobin 8.2, hematocrit 23.7, platelet count of 27. Sodium 145, potassium 3.7, BUN of 102, creatinine 10.2, sodium bicarb of 12. ABG with pH of 7.33, pCO2 31, PO2 64, bicarb of 16.1. Septic workup reviewed, blood cultures no growth after 24 hours. Patient getting broad- spectrum IV antibiotics during my visit. CT of the abdomen pelvis probable mild enterocolitis with mild to moderate small and large bowel liquid content, cholelithiasis, urinary wall thickening, more than expected for empty urinary bladder. Mild distal colonic diverticulosis. 06/19 patient is seen and examined at bedside, case discussed with the RN, no acute events overnight, patient is still confused, however less compared to time of admission. Following very simple commands. He is currently off vasopressors. Replace, output since this morning 500 cc. Blood pressure 111/78, afebrile, saturating 96-98% 2 L nasal cannula. WBC trending down at 11.2, hemoglobin 7.6, hematocrit 20.9, platelet count of 14. BUN 108, creatinin e 10.2. ABG shows a pH 7.41, pCO2 37, PO2 81.5, bicarb 23.1. Blood culture showing Alicia tropicalis. Patient has been started on micafungin. Continue antibiotics. Continue critical care input and recommendation, continue Nephrology input and recommendation in terms of renal replacement therapy, continue daily weight, monitor intake and output. Follow anemia workup, stool occult blood, serial CBC transfuse 1 unit of PRBC hemoglobin less than seven, we will request Hematology consultation as well. 06/20 patient seen at bedside, no acute events overnight. He is not requiring pressors he is afebrile, hemodynamically stable saturating well on 2 L nasal cannula. Hemoglobin was 6.1 and platelets low at night, we will be transfused with packed red blood cells and platelets per critical Care, we will follow up post transfusion. Potassium decreased from 3.4 down to 3.2, creatinine stable at 10.2, we will follow up with Nephrology for recommendations. Urine output is improving, he has been started on Lasix, we will follow up. Patient continues on micafungin. Pt reticulocyte count low at 0.18 suggesting decreased production of RBC, FOBT positive as well concerning for GI Bleed. Will consult hematology and GI and follow up 06/21 patient seen at bedside, no acute events overnight. He has been afebrile, hemodynamically stable saturating well on 2 L nasal cannula. He has been NPO ho wever he has no history of volume overload, and his kidney function is decreased, we will perfuse his kidneys with some IV fluids and allow clear liquid diet. Creatinine stable at 9.9, same as yesterday, potassium decreased at 3.0, nephrology to manage potassium levels until renal function improves. Hemoglobin improved from 8.0 up to 8.7, remainder of his labs are relatively unremarkable. 06/22 Pt seen at bedside, no acute events overnight. He has been downgraded from ICU. He has been afebrile, hemodynamically stable, saturating well on room air. Hgb stable at 8.6, similar to yesterday, platelets decreased from 102 down to 82, potassium low at 2.7, will be repleted according to protocol, creatinine improved from 9.9 down to 8.5, sodium improved from 150 down to 146, remainder of his labs are relatively unremarkable. Urine output adequate, approximately 2.3L output in the last 24 hours. On physical exam, no evidence of volume overflow, will continue with IV fluids to perfuse his kidneys. Left foot sunita wing mullins-resistant organism, ID to adjust antibiotics 06/23 patient seen at bedside, no acute events overnight. He is pending EGD with GI today, we will follow up postprocedure. He has been afebrile, hemodynamically stable, mildly hypertensive with systolics in the 150s, saturating well on 3 L nasal cannula. Hemoglobin improved from 8.6 up to 9.0, platelets decreased from 82 down to 78, creatinine continues to improve from 8.5 down to 7.2 with adequate urine output. Potassium low at 3.1, we will be repl eted according to potassium protocol. Patient weak and feeble, we will likely need transitioned to senior care facility, case management to assist with placement. He will continue daily physical therapy. 06/24 patient seen at bedside, no acute events overnight. EGD was done yesterday no evidence of bleed noted. Patient refusing colonoscopy. Hgb is uptrending from 9.0 up to 9.3 suggesting resolution of GI bleed, platelets improved from 78 up to 87, creatinine improved from 7.2 down to 6.4, potassium low at 3.4, will be repleted according to protocol. Patient will need placement for IV antibiotics 06/25 patient seen at bedside, no acute events overnight. Continues to refuse colonoscopy yesterday he went into AFib with RVR was started on IV amiodarone. He was rate controlled today, likely we will be transitioned to p.o. amiodarone. Now pending placement to continue IV antibiotic and antifungal therapy. We will follow up with case management and Cardiology. Creatinine improved from 6.4 down to 5.9, BUN still elevated at 112. Potassium low at 2.9 will be repleted according to protocol and will give an extra 80meq supplementation. 06/26 patient seen at bedside, no acute events overnight. He has been afebrile, hemodynamically stable saturating well on room air. WBC increased from 11.3 up to 13.1, hemoglobin stable at 9.7, same as yesterday, creatinine stable at 5.9, same as yesterday, BUN increased from 112 up to 117, remainder of his labs are relatively unremarkable. Proximally 1.1 L urine output in the last 24 hours. He is pending placement 06/27 Pt seen at bedside, no acute events overnight. He remains stable, vitals unremarkable. Pending placement 06/28 patient seen at bedside, no acute events overnight. His urine output has been decreasing, his BUN is up trending and his creatinine stable at 5.9. Discuss with Nephrology and we will hold the IV fluids and start a short course of Lasix to see his response. If he does not improve he may end up needing renal replacement therapy. Remainder of his vitals and labs are unremarkable. 06/29 seen at bedside, no acute events overnight. He was started on Lasix yesterday, diuresed proximally 1.4 L and is -992 mL over the last 24 hours. He still appears fluid overloaded. BUN continues to uptrend, creatinine stable at 6.0, similar to yesterday. Continue to monitor renal function, if it continues to deteriorate or urine output decreases, he may need renal replacement therapy. 06/30 patient seen at bedside, no acute events overnight. Renal function lulu nues to deteriorate, nephrology spoke with the patient about worsening renal function and the patient has agreed to transition to dialysis, will follow up with nephrology. 07/01 patient seen at bedside, no acute events overnight. He was in agreement to begin dialysis he will be taken for PermCath placement today and start his 1st session, venous mapping we will be done and CV surgery has been consulted for AV fistula occlusion. Patient's potassium low at 3.0, we will hold off on repletion due to renal dysfunction and defer to Nephrology for management of the electrolytes. Creatinine stable at 6.2, same as yesterday. WBC increased from 10.2 up to 11.7, hemoglobin decreased from 10.8 down to 9.6, remainder of his labs are relatively unremarkable. 07/02 patient seen at bedside, his dialysis catheter was placed yesterday. This morning on chest x-ray there appears to be a 20% pneumothorax, pulmonology has been updated with these findings, we will order a repeat chest x-ray at 1:00 p.m. and follow up. If there is progression of the pneumothorax he may need a chest tube. Patient has had venogram done, he is pending AV fistula creation with CV surgery. Once the CV surgery has been completed and pneumothorax resolves, patient will be good candidate to transitioned to senior care. At bedside he is in no acute distress, has no complaints although he does seem tearful about having to be on dialysis and he is currently undergoing a dialysis session. 07/03 patient seen at bedside, no acute events overnight he continues with dialysis, tolerating well. Nephrology and CV surgery are coordinating the AV fistula procedure, we will follow up with their recommendations. He was hemodynamically stable, labs are appropriately arranged for ESRD, potassium low at 3.0 we will defer to Nephrology for repletion. Patient we will need placement once AV fistula has been completed. REVIEW OF SYSTEMS 12 point review of systems negative unless noted in HPI PHYSICAL EXAM GENERAL APPEARANCE: The patient remains confused. Withdrawing to painful stimulation. NEUROLOGICAL: Cranial nerves II-XII grossly intact. Motor is 5/5 in bilateral upper and lower extremities proximal to distal. No sensory deficits. HEENT: Face is symmetric. Pupils are equal and reactive. Extraocular movements are intact. NECK: Supple. No JVD. No thyromegaly. No submental, submandibular, pre-/postauricular, occipital or supraclavicular lymphadenopathy. CHEST: Normal chest expansion. No Telemetry. LUNGS: Absence of any rales, rhonchi or any wheezing. CARDIOVASCULAR: Regular. S1 and S2 normal. No appreciable rubs, murmurs or gallops. ABDOMEN: Soft, nontender, and nondistended. There is no rebound, voluntary guarding, or rigidity. : Deferred. No Gallagher. EXTREMITIES: Non-edematous and not cyanotic. No clubbing. Good capillary refill. SKIN: No skin breakdown. Vital Signs (last 8hr) Date Time Temp Pulse Resp B/P (MAP) Pulse Ox O2 Delivery O2 Flow Rate FiO2 07/03/24 11:05 97 Room Air* 0 21 07/03/24 11:00 97.7 70 18 144/66 98 Nasal Cannula 2.0 07/03/24 07:00 98.2 78 17 134/79 97 Nasal Cannula 2.0 LABS: Laboratory: Test 07/03/24 11:26 07/03/24 05:28 Range/Units Whole Blood Glucose 208 H 70-110 MG/DL White Blood Count 13.3 H 4.8-10.8 K/uL Red Blood Count 3.55 L 4.50-6.20 MIL/uL Hemoglobin 10.6 L 14.0-18.0 g/dL Hematocrit 30.5 L 42-54 % Mean Corpuscular Volume 85.9 79-99 fL Mean Corpuscular Hemoglobin 29.9 27.0-33.0 pg Mean Corpuscular Hemoglobin Concent 34.8 32.0-36.0 g/dL Red Cell Distribution Width 16.2 H 11.0-15.5 % Platelet Count 267 130-400 K/uL Mean Platelet Volume 11.2 H 7.5-10.5 fL Immature Granulocyte % (Auto) 0.6 0-1 % Neutrophils (%) (Auto) 89.6 H 40.0-77.0 % Lymphocytes (%) (Auto) 2.6 L 21.0-51.0 % Monocytes (%) (Auto) 7.0 3.0-13.0 % Eosinophils (%) (Auto) 0.1 0.0-8.0 % Basophils (%) (Auto) 0.1 0.0-5.0 % Neutrophils # (Auto) 11.9 H 1.8-7.7 K/uL Lymphocytes # (Auto) 0.4 L 1.0-4.8 K/uL Monocytes # (Auto) 0.9 0.1-1.0 K/uL Eosinophils # (Auto) 0.01 0.00-0.70 K/uL Basophils # (Auto) 0.01 0.00-0.20 K/uL Absolute Immature Granulocyte (auto 0.08 0-1 K/uL Nucleated Red Blood Cells 0.0 0.0-0.19 % Sodium Level 137 136-145 mmol/L Potassium Level 3.0 *L 3.5-5.1 mmol/L Chloride Level 97 L 101-111 mmol/L Carbon Dioxide Level 28 21-32 mmol/L Blood Urea Nitrogen 74 H 7-18 mg/dL Creatinine 3.9 H 0.5-1.3 mg/dL Glomerular Filtration Rate Calc 16 >90 mL/min Random Glucose 226 H 70-105 mg/dL Total Calcium 7.5 L 8.5-10.1 mg/dL Phosphorus Level 5.5 H 2.5-4.9 mg/dL Magnesium Level 2.20 1.80-2.40 mg/dL Total Bilirubin 0.8 0.2-1.0 mg/dL Aspartate Amino Transf (AST/SGOT) 30 10-37 U/L Alanine Aminotransferase (ALT/SGPT) 25 12-78 U/L Alkaline Phosphatase 215 H 50-136 U/L Total Protein 5.7 L 6.0-8.3 g/dL Albumin 2.3 L 3.5-5.0 g/dL Current Medications Medications (Trade) Dose Ordered Sig/Roderick Route PRN Reason Start Time Stop Time Status Last Admin Dose Admin Albuterol Sulfate (Proventil 0.083% 2.5mg/3ml) 10 mg ONCE STAT IH 06/17/24 04:05 06/17/24 04:12 DC 06/17/24 04:31 10 MG Amiodarone HCl 360 mg/Dextrose 200 ml @ 0 mls/hr PROTOCOL IV 06/24/24 14:30 06/25/24 09:16 DC 06/24/24 15:51 33.33 MLS/HR Amiodarone HCl 540 mg/Dextrose 300 ml @ 0 mls/hr PROTOCOL IV 06/24/24 21:00 07/24/24 20:59 06/24/24 20:42 16.7 MLS/HR Amlodipine Besylate (NorvASC 5MG TAB) 5 mg BID PO 06/22/24 09:00 07/22/24 08:59 07/03/24 08:39 5 MG Apixaban (EliquIS) 5 mg BID PO 06/24/24 14:30 06/30/24 19:54 DC 06/30/24 11:10 5 MG Calcium Carbonate (Tums 500 Mg Chew Tab) 500 tab ONCE PO 06/26/24 15:30 07/26/24 15:29 Cancel Calcium Carbonate (Tums 500 Mg Chew Tab) 500 tab Q6H6 PRN PO GI UPSET/UPSET STOMACH 06/28/24 12:00 07/28/24 11:59 07/02/24 20:57 500 TAB Calcium Gluconate (Calcium Gluc 1gm Vial) 1 gm AD STAT IV 06/17/24 04:05 06/17/24 04:12 DC 06/17/24 04:21 1 GM Cefepime HCl (MAXipime 1 GM vial) 0.25 gm Q24H IVPB 06/17/24 04:00 06/18/24 04:06 DC 06/17/24 04:58 0.25 GM Cefepime HCl (MAXipime 1 GM vial) 1 gm Q24H IVPB 06/20/24 05:00 06/22/24 16:09 DC 06/22/24 03:12 1 GM Cefepime HCl 0.25 gm/Sodium Chloride 50 ml @ 100 mls/hr Q24H IVPB 06/18/24 04:30 06/19/24 10:58 DC 06/19/24 05:26 100 MLS/HR Dextrose (D50w) 50 ml AD PRN IV HYPOGLYCEMIA PROTOCOL 06/17/24 01:00 06/17/24 01:01 DC Dextrose (D50w) 50 ml AD PRN IV HYPOGLYCEMIA PROTOCOL 06/17/24 01:00 07/17/24 00:59 Dextrose (D50w) 50 ml ONCE STAT IV 06/17/24 04:05 06/17/24 04:12 DC 06/17/24 04:21 50 ML Epoetin Rylan-epbx (Retacrit) 10,000 unit [id number] SQ 06/24/24 14:00 06/24/24 13:53 DC Epoetin Rylan-epbx (Retacrit) 10,000 unit QMOWEFR@1600 SQ 06/29/24 15:00 07/29/24 14:59 07/01/24 17:01 10,000 UNIT Epoetin Rylan-epbx (Retacrit) 10,000 unit QWEEK SQ 06/24/24 14:00 06/29/24 14:23 DC 06/24/24 14:37 10,000 UNIT Famotidine (Pepcid 20mg Vial) 20 mg Q48H IV 06/17/24 01:00 07/17/24 00:59 07/03/24 00:42 20 MG Folic Acid (FOLic ACID 1 MG TABLET) 1 mg DAILY PO 06/25/24 09:00 07/25/24 08:59 07/03/24 08:39 1 MG Furosemide (LASix 40MG VIAL) 40 mg Q12H IV 06/28/24 21:00 07/02/24 10:34 DC 07/02/24 09:05 40 MG Furosemide (LASix 40MG VIAL) 40 mg Q8H IV 06/19/24 18:30 06/20/24 18:31 DC 06/20/24 18:54 40 MG Glucagon (Glucagon 1mg Kit) 1 mg AD PRN IM HYPOGLYCEMIA PROTOCOL 06/17/24 01:00 06/17/24 01:01 DC Glucagon (Glucagon 1mg Kit) 1 mg AD PRN IM HYPOGLYCEMIA PROTOCOL 06/17/24 01:00 07/17/24 00:59 Heparin Sodium (Porcine) (HEParin 5,000 UNIT VIAL) 10,000 unit AD IRRIG 07/01/24 14:00 07/31/24 13:59 Hydralazine HCl ([id number] TAB) 25 mg TID PO 06/22/24 09:00 07/22/24 08:59 07/03/24 14:12 25 MG Hydrocortisone Sodium Succinate (Solu-corTEF 100MG) 50 mg ONCE@1930 IV 06/22/24 19:30 06/22/24 22:30 DC 06/22/24 19:59 50 MG Hydrocortisone Sodium Succinate (Solu-corTEF 100MG) 50 mg Q8H IV 06/18/24 11:30 06/22/24 15:46 DC 06/22/24 03:12 50 MG Hydrocortisone Sodium Succinate (Solu-corTEF 100MG) 50 mg Q8H6 IV 06/23/24 06:00 07/23/24 05:59 07/03/24 14:12 50 MG Hydromorphone HCl (DiLAUDid 0.5MG INJ) 0.5 mg Q4H PRN IVP SEVERE PAIN (7-10) 06/20/24 13:00 06/25/24 12:59 DC 06/21/24 23:50 0.5 MG Insulin Human Regular (humuLIN R 100 UNIT/ML 3ML) 10 unit ONCE STAT IV 06/17/24 04:05 06/17/24 04:12 DC 06/17/24 04:28 10 UNIT Insulin Human Regular (humuLIN R 100 UNIT/ML 3ML) INSULIN SLIDING SCAL... ACHS SQ 06/17/24 07:30 07/17/24 07:29 07/03/24 12:03 3 UNIT Lactated Ringer's 1,000 ml @ 130 mls/hr Q7H42M IV 06/21/24 09:30 06/28/24 09:51 DC 06/28/24 09:03 130 MLS/HR Lactobacillus Rhamnosus ([facility]) 1 each BID PO 06/28/24 10:00 07/28/24 09:59 07/03/24 08:39 1 EACH Leptospermum Honey (Medihoney) 1 appl DAILY TP 06/19/24 09:00 07/19/24 08:59 07/03/24 08:57 1 APPL Magnesium Sulfate 50 ml @ 0 mls/hr PROTOCOL PRN IV MAGNESIUM PROTOCOL 06/23/24 11:30 07/23/24 11:29 07/02/24 18:32 25 MLS/HR Metoprolol Tartrate (loprESSOR) 25 mg BID PO 06/24/24 14:30 07/24/24 14:29 07/03/24 08:39 25 MG Metronidazole/ Sodium Chloride (flaGYL) 500 mg Q8H IV 06/17/24 05:00 06/27/24 04:59 DC 06/26/24 21:48 500 MG Micafungin Sodium 100 ml @ 100 mls/hr Q24H IV 06/18/24 00:00 07/18/24 00:00 07/03/24 00:42 100 MLS/HR Morphine Sulfate (morPHINE 2MG SYG) 2 mg Q4H PRN IVP SEVERE PAIN (7-10) 06/29/24 00:30 07/01/24 16:10 DC 07/01/24 01:35 2 MG Norepinephrine 250 ml @ 0 mls/hr PROTOCOL IV 06/16/24 22:00 06/22/24 07:20 DC 06/17/24 05:33 24.5 MLS/HR Ondansetron HCl (zoFRAN 4MG INJ) 4 mg Q6H PRN IVP NAUSEA/VOMITING 06/23/24 20:30 07/23/24 20:29 07/02/24 16:33 4 MG Pharmacy Profile Note (Lace Assessment) 1 each AD MISC 06/19/24 15:30 06/20/24 12:49 DC Pharmacy Profile Note (Pharmacy Communication) 1 each ONCE MISC 06/17/24 23:00 06/19/24 07:13 DC 06/17/24 23:31 1 EACH Pharmacy Profile Note (Pharmacy Communication) 1 each ONCE MISC 06/22/24 16:30 06/23/24 07:22 DC Pharmacy Profile Note (Pharmacy Communication) 1 each ONCE MISC 06/30/24 12:30 06/30/24 12:08 DC Pharmacy Profile Note (Pharmacy Communication) 1 each ONCE MISC 06/30/24 14:30 06/30/24 14:16 DC Phenylephrine HCl 100 mg/Sodium Chloride 250 ml @ 0 mls/hr AD PRN IV TITRATE 06/17/24 10:30 06/22/24 07:20 DC 06/18/24 05:48 27 MLS/HR Piperacillin Sod/ Tazobactam Sod (Zosyn 3.375gm+NS 50ml) 3.375 gm Q12H IV 06/16/24 21:30 06/17/24 01:03 DC 06/16/24 21:42 3.375 GM Piperacillin Sod/ Tazobactam Sod (Zosyn 3.375gm+NS 50ml) 3.375 gm Q12H IVPB 06/17/24 01:00 06/17/24 04:00 DC 06/17/24 02:54 3.375 GM Potassium Chloride 100 ml @ 100 mls/hr AD PRN IV POTASSIUM PROTOCOL 06/21/24 08:00 07/21/24 07:59 07/01/24 05:21 100 MLS/HR Potassium Chloride 100 ml @ 100 mls/hr AD PRN IV POTASSIUM PROTOCOL 06/23/24 11:30 07/23/24 11:29 Potassium Chloride (K-Dur/Klor-Con 20meq) 20 meq AD PRN PO POTASSIUM PROTOCOL 06/23/24 11:30 07/23/24 11:29 07/02/24 18:32 20 MEQ Potassium Chloride (K-Dur/Klor-Con 20meq) 40 meq BID PO 06/22/24 09:00 06/22/24 21:01 DC 06/22/24 19:54 40 MEQ Potassium Chloride (K-Dur/Klor-Con 20meq) 40 meq BID PO 06/25/24 09:00 06/28/24 09:51 DC 06/27/24 09:23 40 MEQ Potassium Chloride (KCl 10% Elixir 20meq/15ml) 20 meq AD PRN PO POTASSIUM PROTOCOL 06/23/24 11:30 07/23/24 11:29 Sodium Bicarbonate / Dextrose 1,000 ml @ 0 mls/hr Q0M IVP 06/17/24 05:00 06/17/24 04:58 DC Sodium Bicarbonate 150 meq/Dextrose 1,150 ml @ 50 mls/hr Q23H IVP 06/18/24 08:00 06/19/24 12:24 DC 06/18/24 20:23 100 MLS/HR Sodium Bicarbonate 150 meq/Dextrose 1,150 ml @ 100 mls/hr [id number] IVP 06/17/24 05:00 06/18/24 04:44 DC 06/17/24 21:00 100 MLS/HR Sodium Polystyrene Sulfonate (kayEXALate 15 GM/60 ML) 15 gm Q2H PO 06/16/24 21:30 06/16/24 23:31 DC 06/16/24 22:21 15 GM Sodium Chloride 1,000 ml @ 0 mls/hr ONCE IV 07/01/24 14:00 07/31/24 13:59 07/02/24 10:51 100 MLS/HR Sodium Chloride 1,000 ml @ 150 mls/hr Q6H40M IV 06/16/24 23:00 06/17/24 09:10 DC 06/17/24 05:15 150 MLS/HR Sodium Chloride (NS 50ml) 50 ml AD IV 06/17/24 01:00 06/17/24 01:05 DC Sucralfate (Carafate) 1 gm BID PO 06/28/24 12:30 06/28/24 22:30 DC 06/28/24 20:56 1 GM Sucralfate (Carafate) 1 gm BID PO 07/03/24 09:00 08/02/24 08:59 07/03/24 09:22 1 GM Thiamine HCl (Vitamin B-1) 100 mg DAILY IVP 06/17/24 09:00 07/17/24 08:59 07/03/24 08:39 100 MG Tigecycline 100 mg/Sodium Chloride 100 ml @ 200 mls/hr ONCE IV 06/22/24 16:30 06/23/24 07:21 DC 06/22/24 18:51 200 MLS/HR Tigecycline 50 mg/ Sodium Chloride 100 ml @ 200 mls/hr BID@0600,1800 IV 06/23/24 06:00 06/30/24 05:59 DC 06/29/24 17:57 200 MLS/HR Tigecycline 50 mg/ Sodium Chloride 100 ml @ 200 mls/hr BID@0600,1800 IV 06/30/24 18:00 06/30/24 19:53 DC 06/30/24 19:50 200 MLS/HR Tigecycline 50 mg/ Sodium Chloride 100 ml @ 200 mls/hr BID@0800,2000 IV 07/01/24 08:00 07/10/24 07:59 07/03/24 08:41 200 MLS/HR Vancomycin HCl (Vancomycin 750mg) 750 mg Q96H IVPB 06/20/24 22:00 06/17/24 14:00 DC Vancomycin HCl (Vancomycin Protocol) 1 each AD IV 06/17/24 01:30 06/17/24 14:01 DC Vitamin B Complex/ Vit C/Folic Acid (Nephrovite Tablet) 1 cap DAILY PO 06/24/24 09:00 07/24/24 08:59 07/03/24 08:39 1 CAP Wound Care/ Dressing Products (Venelex Ointment) 1 APPL BID TP 06/28/24 21:00 07/28/24 20:59 07/03/24 09:01 60 GM DIAGNOSTICS / RADIOLOGY: [ ] ASSESSMENT: Severe metabolic acidosis, resolved POA Septic shock requiring vasopressor, resolved POA Paroxysmal afib with RVR, rate controlled Fungemia 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 Nephrology consulted, appreciate recommendations Stop LR @ 130 cc/hr Start furosemide 40mg IV BID Continue clear liquid diet, will advance tomorrow GI consulted, appreciate recommendations Hematology consulted, appreciate recommendations Anemia workup. Transfuse as needed. Hematology consultation requested per Follow critical care input and recommendation Disposition: Pending dialysis, AV fistula creation, placement AL CARDONA MD July 03, 2024 14:56
--- NOTE | 2024-07-03 15:15 | PN ---
NEPHROLOGY PROGRESS NOTE Date/Time Patient Seen: July 03, 2024 SUBJECTIVE: This is a 69-year-old male with a past medical history of peripheral artery disease with osteomyelitis S/p left 4th and 5th toe and right 3rd toe amputation, anemia, chronic pain, diabetes mellitus type 2, hypertension, hyperlipidemia, chronic kidney disease, recent COVID-19 infection. He presented to the emergency room via EMS from [facility] with complaints of low platelets, poor appetite and generalized weakness. Influenza and COVID swabs were negative CT of the abdomen showed mild enterocolitis with mild to moderate small and large bowel liquid contents. He was admitted to the ICU for further medical management of septic shock He continues to require vasopressors to maintain blood pressure. Continues with a severe lactic acidosis. Blood cultures were positive for Alicia tropicalis He continues on antibiotics In the emergency room he was noted to have elevated BUN/creatinine and hyperkalemia. Renal function continued to worsen He has been started on renal replacement therapy Tolerated dialysis without difficulty. He was seen in the medical floor, in no acute distress Family at the bedside Condition remains critical and guarded REVIEW OF SYSTEMS: GENERAL: Negative for any nausea, vomiting, fevers, chills, or weight loss. NEUROLOGIC: Negative for any blurry vision, blind spots, double vision, facial asymmetry, dysphagia, dysarthria, hemiparesis, hemisensory deficits, vertigo, ataxia. HEENT: Negative for any head trauma, neck trauma, neck stiffness, photophobia, phonophobia, sinusitis, rhinitis. CARDIAC: Negative for any chest pain, dyspnea on exertion, paroxysmal nocturnal dyspnea, peripheral edema. PULMONARY: Negative for any shortness of breath, wheezing, COPD, or TB exposure. GASTROINTESTINAL: Negative for any abdominal pain, nausea, vomiting, bright red blood per rectum, melena. GENITOURINARY: Negative for any dysuria, hematuria, incontinence. INTEGUMENTARY: Negative for any rashes, cuts, insect bites. RHEUMATOLOGIC: Negative for any joint pains, photosensitive rashes, history of vasculitis or kidney problems. HEMATOLOGIC: Negative for any abnormal bruising, frequent infections or bleeding. PHYSICAL EXAM: GENERAL: Lethargic. No acute distress. Well-nourished. EYES: EOMI. Anicteric. HENT: Moist mucous membranes. No scleral icterus. No cervical lymphadenopathy. LUNGS: Clear to auscultation bilaterally. No accessory muscle use. CARDIOVASCULAR: Regular rate and rhythm. No murmur. No JVD. ABDOMEN: Soft, non-tender and non-distended. No palpable masses. EXTREMITIES: No edema. Non-tender. SKIN: No rashes or lesions. Warm. NEUROLOGIC: No focal neurological deficits. CN II-XII grossly intact, but not individually tested. PSYCHIATRIC: Cooperative. Appropriate mood and affect. LABORATORY: [ ] Hematology Labs: Test 07/03/24 05:28 Range/Units White Blood Count 13.3 H 4.8-10.8 K/uL Red Blood Count 3.55 L 4.50-6.20 MIL/uL Hemoglobin 10.6 L 14.0-18.0 g/dL Hematocrit 30.5 L 42-54 % Mean Corpuscular Volume 85.9 79-99 fL Mean Corpuscular Hemoglobin 29.9 27.0-33.0 pg Mean Corpuscular Hemoglobin Concent 34.8 32.0-36.0 g/dL Red Cell Distribution Width 16.2 H 11.0-15.5 % Platelet Count 267 130-400 K/uL Mean Platelet Volume 11.2 H 7.5-10.5 fL Immature Granulocyte % (Auto) 0.6 0-1 % Neutrophils (%) (Auto) 89.6 H 40.0-77.0 % Lymphocytes (%) (Auto) 2.6 L 21.0-51.0 % Monocytes (%) (Auto) 7.0 3.0-13.0 % Eosinophils (%) (Auto) 0.1 0.0-8.0 % Basophils (%) (Auto) 0.1 0.0-5.0 % Neutrophils # (Auto) 11.9 H 1.8-7.7 K/uL Lymphocytes # (Auto) 0.4 L 1.0-4.8 K/uL Monocytes # (Auto) 0.9 0.1-1.0 K/uL Eosinophils # (Auto) 0.01 0.00-0.70 K/uL Basophils # (Auto) 0.01 0.00-0.20 K/uL Absolute Immature Granulocyte (auto 0.08 0-1 K/uL Nucleated Red Blood Cells 0.0 0.0-0.19 % Chemistry Labs: Test 07/03/24 11:26 07/03/24 05:28 Range/Units Whole Blood Glucose 208 H 70-110 MG/DL Sodium Level 137 136-145 mmol/L Potassium Level 3.0 *L 3.5-5.1 mmol/L Chloride Level 97 L 101-111 mmol/L Carbon Dioxide Level 28 21-32 mmol/L Blood Urea Nitrogen 74 H 7-18 mg/dL Creatinine 3.9 H 0.5-1.3 mg/dL Glomerular Filtration Rate Calc 16 >90 mL/min Random Glucose 226 H 70-105 mg/dL Total Calcium 7.5 L 8.5-10.1 mg/dL Phosphorus Level 5.5 H 2.5-4.9 mg/dL Magnesium Level 2.20 1.80-2.40 mg/dL Total Bilirubin 0.8 0.2-1.0 mg/dL Aspartate Amino Transf (AST/SGOT) 30 10-37 U/L Alanine Aminotransferase (ALT/SGPT) 25 12-78 U/L Alkaline Phosphatase 215 H 50-136 U/L Total Protein 5.7 L 6.0-8.3 g/dL Albumin 2.3 L 3.5-5.0 g/dL DIAGNOSTICS / RADIOLOGY: REASON: monitor pneumothorax for progression ORDERING PHYSICIAN: AL CARDONA MD PROCEDURE: CXR1VW - CHEST 1VW CHEST 1VW HISTORY: Pneumothorax COMPARISON: None FINDINGS: A frontal projection of the chest was obtained. Bilateral lower lung pulmonary infiltrates are seen. The heart is borderline enlarged. Degenerative changes are seen. No evidence of aortic calcification is seen. IMPRESSION: 1. Bilateral lower lung pulmonary infiltrates. DICTATED BY: PEDRO VERDUGO MD DATE: 07/02/24 1614 REASON: FVO ORDERING PHYSICIAN: LALI BOLDEN NP PROCEDURE: CXR1VW - CHEST 1VW CHEST 1VW HISTORY: [facility] COMPARISON: 06/30/2024 FINDINGS: A frontal projection of the chest was obtained. Mild bilateral pulmonary infiltrates are seen may be related to mild pulmonary vascular congestion with possible superimposed pneumonitis. Right venous catheter is seen with distal tip in the plane of the atriocaval junction. PICC line is also seen entering from the right with distal tip in plane of the superior vena cava. There is 20% right pneumothorax. The heart is borderline enlarged. All the lines and tubes are again seen in place. No evidence of aortic calcification is seen. IMPRESSION: 1. Mild bilateral pulmonary infiltrates are seen may be related to mild pulmonary vascular congestion with possible superimposed pneumonitis. 20% right pneumothorax. Report was given to the critical care team. DICTATED BY: PEDRO VERDUGO MD DATE: 07/02/24938 REASON: ORDERING PHYSICIAN: BRENDA MAI MD PROCEDURE: CATH PROC - PREPARED FOODS SERVICE TEAM MEMBER PROCEDURE REQUEST PREPARED FOODS SERVICE TEAM MEMBER PROCEDURE REQUEST INDICATION: ESRD, hemodialysis. E MARKETING SPECIALIST: Dr Jackson PROCEDURE DETAILS: Informed consent was obtained after discussion of the risks, benefits and alternatives to treatment. Sterile Prep: All elements of maximal sterile barrier technique, including hand hygiene and cutaneous antisepsis were used. A time-out was performed prior to the procedure. Anesthesia type: 14 mL of 1% lidocaine subcutaneous. Patient also received 1 mg Versed intravenous, 25 mcg fentanyl intravenous. Vital signs monitored and observed by catheter lab nursing staff. Contrast: None Estimated blood loss: Less than 5 cc. TECHNIQUE: Imaging guidance: Ultrasound demonstrates right internal jugular vein to be patent. Access: Right internal jugular vein Venous access device: 28 cm Duramax Bioflow catheter Fluoroscopy time: 0.2 minutes Intraprocedural or immediate post-procedural complications: None FINDINGS: Sonographic evaluation of the access vein: The length of the target vessel was evaluated for internal echoes, stenosis and patency. The access vessel is patent. Catheter tip location: Right atrium Additional observations: Both ports were flushed and heparin packed. Both ports were clamped and capped. Sterile dressing applied. No observed complications. IMPRESSION: Insertion of right internal jugular vein tunneled hemodialysis catheter. The catheter may be used immediately. DICTATED BY: APOLONIA JACKSON DO DATE: 07/01/2434 REASON: VEIN MAPPING ORDERING PHYSICIAN: RUSTY TIERNEY MD PROCEDURE: VEIN M UNI - US VEIN MAPPING UNI/LTD US VEIN MAPPING UNI/LTD HISTORY: Preop COMPARISON: None TECHNIQUE: Ultrasound upper extremity venous mapping study was performed for hemodialysis access. FINDINGS: Left cephalic vein High upper arm: 12 x 2 millimeter Mid upper arm: 9 x 2 millimeter Low upper arm: 4 x 2 millimeter High forearm: 7 x 1 millimeter Mid forearm: 8 x 2 millimeter Low forearm: 2 x 2 millimeter Left basilic vein Upper arm: 15 x 3 millimeter Lower arm: 14 x 2 millimeter Antecubital fossa: 7 x 2 millimeter IMPRESSION: 1. Ultrasound upper extremity venous mapping study as described above. DICTATED BY: PEDRO VERDUGO MD DATE: 07/01/24 193 REASON: new start dialysis pt ORDERING PHYSICIAN: BRENDA MAI MD PROCEDURE: CXR1VW - CHEST 1VW CHEST 1VW HISTORY: Dialysis COMPARISON: 06/29/2024 FINDINGS: A frontal projection of the chest was obtained. Mild bilateral pulmonary infiltrates are seen may be related to mild pulmonary vascular congestion with possible superimposed pneumonitis. The heart is borderline enlarged. All the lines and tubes are again seen in place. No evidence of aortic calcification is seen. IMPRESSION: 1. Mild bilateral pulmonary infiltrates are seen may be related to mild pulmonary vascular congestion with possible superimposed pneumonitis. DICTATED BY: PEDRO VERDUGO MD DATE: 06/30/24 1627 REASON: hypoxia resp failure ORDERING PHYSICIAN: SMITA BRICE PROCEDURE: CXR1VW - CHEST 1VW CHEST 1VW HISTORY: Hypoxia COMPARISON: 06/09/2024 FINDINGS: A frontal projection of the chest was obtained. There are bilateral pulmonary infiltrates suggestive of pulmonary vascular congestion with possible superimposed pneumonitis. The heart is borderline enlarged. Degenerative changes are seen. No evidence of aortic calcification is seen. IMPRESSION: 1. Bilateral pulmonary infiltrates are seen suggestive of pulmonary vascular congestion with possible superimposed pneumonitis. DICTATED BY: PEDRO VERDUGO MD DATE: 06/29/24 1245 REASON: SOB ORDERING PHYSICIAN: LALI BOLDEN NP PROCEDURE: CXR1VW - CHEST 1VW PORTABLE CHEST RADIOGRAPH INDICATION: SOB COMPARISON: 06/18/2024 FINDINGS: classroom monitor leads overlie the field of view. Tip of right PICC within the SVC. Heart remains enlarged. The pulmonary vascularity and mauricio appear normal. No abnormal pulmonary parenchymal opacity or consolidation identified. No significant pleural effusion noted. No pneumothorax detected. IMPRESSION: Stable cardiac megaly without radiographic evidence for any acute cardiopulmonary process. DICTATED BY: ROLANDO HAN MD DATE: 06/19/24 1011 REASON: SOB ORDERING PHYSICIAN: LALI BOLDEN NP PROCEDURE: CXR1VW - CHEST 1VW PORTABLE CHEST RADIOGRAPH INDICATION: SOB COMPARISON: 06/16/2024 FINDINGS: classroom monitor leads overlie the field of view. Patient positioning is not optimal, but the radiologic examination is still believed to be of reasonable diagnostic quality. Stable right PICC. Stable heart size. Mild calcific plaque is present along the aortic arch rosales. The pulmonary vascularity and mauricio appear normal. Suspect very small layering right and very small left pleural effusions with subjacent passive linear opacities. No evidence for consolidation. No pneumothorax detected. IMPRESSION: Suspect very small layering right and very small left pleural effusions with subjacent passive atelectasis. DICTATED BY: ROLANDO HAN MD DATE: 06/19/24 1021 REASON: sob ORDERING PHYSICIAN: LILIAM LACY PROCEDURE: ECHO CMP - ECHO 2-D COMPLETE APPROVED REPORT EXAM: Two-dimensional and M-mode echocardiogram with Doppler and color Doppler. INDICATION ICD: R06.02 Shortness of breath 2D Dimensions RVDd 5.0 cm LVEF(%) 68.3 (>50%) LVED Vol(simp.) 128.0 mL IVSd 1.4 (0.7-1.1cm) FS(%) 38 % LVES Vol(simp.) 51.0 mL LVDd 4.2 (3.8-5.6cm) LA (2D) 4.0 (1.6-4.0cm) LVEF(%, simp.) 60 % PWd 1.5 (0.7-1.1cm) Ao Root(2D) 4.0 (2.0-3.7cm) LA ESV INDEX (BP) 37.99 mL/m2 LVDs 2.6 (2.5-4.0cm) LVOT diam 2.3 (1.8-2.4cm) IVC diam 2.1 cm Deformation Strain Apical 4 -19.0 % Apical 2 -15.0 % Apical 3 -16.0 % Global Strain -17.0 % M-Mode Dimensions EPSS 1.1 cm LA (MM) 4.0 (1.6-4.0cm) Ao Root(MM) 3.0 (2.0-3.7cm) Aortic Valve AoV Vmax 2.5 m/s Ao Peak GR 24.7 mmHg LVOT Vmax 1.5 m/s AoV VTI 0.4 m Ao Mean GR 15.1 mmHg LVOT VTI 0.29 m DEBORA (VMAX) 2.9 cm2 DEBORA (VTI) 2.9 cm2 Mitral Valve MV E Vmax 144.9 cm/s DECEL Time 175 ms MV A Vmax 128.2 cm/s P 1/2 T 58 ms E/A ratio 1.1 MVA (PHT) 3.8 cm2 TDI E/E' Medial 16.1 E/E' Lateral 14.5 Medial E' Peak V 9.00 cm/s Lateral E' Peak V 10.00 cm/s Pulmonary Valve PV Vmax 1.3 m/s Tricuspid Valve TR Vmax 2.7 m/s RAP (EST) 3 mmHg RVSP 32.3 mmHg TR Peak GR 29.3 mmHg Left Ventricle The left ventricle is normal size. GS -17%. Hyoerdynamic LV with normal LV segmental wall motion. Moderate concentric left ventricular hypertrophy. LVEF is 60-65%. Grade 2 diastolic dysfunction. Right Ventricle The right ventricle is moderately dilated, measuring 5.0 cm. The right ventricular systolic function is normal. Atria The left atrium is mildly dilated with an LA ESV index of 38 mL/m�. The right atrium is moderately dilated. Aortic Valve Aortic valve is trileaflet, with mild sclerosis of the left coronary cusp. The aortic valve is seen to open near normally. No aortic regurgitation is present. There is no aortic valvular stenosis. Mitral Valve Mitral valve leaflets open well. Posterior annular and leaflet calcification noted. There is no mitral valve regurgitation noted. There is no mitral valve stenosis. Tricuspid Valve The tricuspid valve is normal in structure. There is trace of tricuspid valve regurgitation noted. Pulmonic Valve The pulmonary valve is normal in structure. There is no pulmonic valvular regurg itation. Great Vessels The aortic root is normal in size. The IVC is normal in size and collapses >50% with inspiration. Pericardium There is no pericardial effusion. Other Information Quality : Adequate Conclusion The left ventricle is normal size. Moderate concentric left ventricular hypertrophy. GS -17%. Hyoerdynamic LV with normal LV segmental wall motion. LVEF is 60-65%. Grade 2 diastolic dysfunction. Aortic valve is trileaflet, with mild sclerosis of the left coronary cusp. The aortic valve is seen to open near normally. There is no aortic valvular stenosis. Mitral valve leaflets open well. Posterior annular and leaflet calcification noted. There is no mitral valve stenosis. There is no mitral valve regurgitation noted. There is no pericardial effusion. DICTATED BY: KATJA LANDRY MD DATE: 06/17/24 0847 REASON: RENAL FAILURE ORDERING PHYSICIAN: EUSEBIO POWELLPCNP PROCEDURE: ABD PEL WO - CT ABDOMEN/PELVIS W/O CONTRAST CT ABDOMEN WITHOUT CONTRAST. CT PELVIS WITHOUT CONTRAST. INDICATION: Renal failure TECHNIQUE: Routine transaxial imaging using 5 mm slice thickness through the abdomen and pelvis without the administration of IV contrast. Thin slice reconstructions are also provided. Coronal and sagittal reformatted images acquired for interpretation. CT was performed with one or more of the following dose reduction techniques: Automated exposure control, adjustment of the mA and/or kV according to patient size, or use of iterative reconstruction technique. COMPARISON: None FINDINGS: Diagnostic sensitivity of this examination is limited by patient motion artifact. ON NONCONTRAST IMAGING: ABDOMEN: Heart size is normal. Mitral annular calcific plaque. Visible lung bases are clear. No abnormal renal calcifications, hydronephrosis, perinephric inflammation, or proximal hydroureter detected. The liver is normal in size and smooth in contour without biliary duct dilation. The spleen is normal in size and attenuation. Several miniscule calcifications within the gallbladder lumen. The pancreas appears normal without pancreatic duct dilation. The adrenal glands appear normal. No significant abdominal, retrocrural or retroperitoneal adenopathy noted. No evidence for intra-abdominal free air or organized fluid collection. Mild calcific plaque is noted along the abdominal aortic and iliac vessel rosales without aneurysmal dilation. PELVIS: Gallagher catheter within the nearly empty urinary bladder. Urinary bladder wall thickening is more than expected for empty urinary bladder. No evidence for free air or organized pelvic fluid collection. No significant pelvic adenopathy detected. Mild to moderate small and large bowel liquid contents. A few diverticula along the distal colon. Terminal ileum appears unremarkable. The appendix appears normal. Mild thoracolumbar spondylosis. IMPRESSION: 1. Probable mild enterocolitis with mild to moderate small and large bowel liquid contents. 2. Cholelithiasis. 3. Urinary bladder wall thickening, more than expected for empty urinary bladder. Correlation with urine studies is recommended. 4. Mild distal colonic diverticulosis. 5. Arteriosclerotic disease as described. DICTATED BY: ROLANDO HAN MD DATE: 06/17/24 1000 REASON: NETO ORDERING PHYSICIAN: BRENDA MAI MD PROCEDURE: RENAL - US RENAL SONOGRAM ULTRASOUND RENAL COMPLETE INDICATION: NETO TECHNIQUE: Routine ultrasound of the kidneys and urinary bladder with grayscale and color Doppler imaging was performed in real-time, and subsequently made available for review. COMPARISON: No prior studies available for comparison. FINDINGS: The right kidney measures 9.7 x 4.9 x 4.6 cm. No abnormal mass demonstrated. No evidence for hydronephrosis or shadowing stone. The left kidney measures 10.1 x 5.5 x 4.8 cm. No abnormal mass demonstrated. No evidence for hydronephrosis or shadowing stone. Urinary bladder wall thickness measures 4.0 mm, but exaggerated due to incomplete distention. No free fluid demonstrated. IMPRESSION: Normal sonographic appearance of the kidneys and urinary bladder. DICTATED BY: ROLANDO HAN MD DATE: 06/17/24 0949 REASON: cp ORDERING PHYSICIAN: MARY CARR MD PROCEDURE: CXR1VW - CHEST 1VW PORTABLE CHEST RADIOGRAPH INDICATION: cp COMPARISON: 05/06/2024 FINDINGS: classroom monitor leads overlie the field of view. Tip of right PICC within the SVC. Heart size is normal. Mild calcific plaque is present along the aortic arch rosales. The pulmonary vascularity and mauricio appear normal. No abnormal pulmonary parenchymal opacity or consolidation identified. No significant pleural effusion noted. No pneumothorax detected. IMPRESSION: No radiographic evidence for any acute cardiopulmonary process. DICTATED BY: ROLANDO HAN MD DATE: 06/16/24 5412 ASSESSMENT: Acute on chronic renal failure Severe Lactic acidosis Metabolic acidosis Hyperkalemia Septic shock, requiring vasopressor Acute encephalopathy Thrombocytopenia NSTEMI, rule-out demand ischemia vs true cardiac etiology Failure to thrive History of osteomyelitis with recent amputation Elevated troponin Elevated BNP Diabetes mellitus type 2 Hypertension Hyperlipidemia Peripheral artery disease PLAN: Labs, diagnostic, radiologic exams reviewed and interpreted by myself and supervising physician. We have reviewed external records in detail Dialysis planned for tomorrow. Start Nepro one can b.i.d. for nutritional support Order CBC, CMP, and electrolytes in am Follow up culture results BiPAP as necessary, for respiratory distress Monitor blood pressure adjust medication doses as needed Avoid hypotensive episodes May use Dilaudid 0.5 mg IV every 6 hours as needed for severe pain Monitor blood sugars Strict intake, output, and daily weight should be monitored Please renally adjust medications Avoid nephrotoxic and nonsteroidal drugs Avoid contrast if possible Will continue to monitor renal function, anemia, electrolytes Treatment plan discussed with patient Questions were answered We have discussed with the other team physicians in detail about the care plan We will continue to monitor the patient closely ATTESTATION BY PHYSICIAN I have seen and examined the patient. I reviewed the documentation, medical decision making, and treatment plan as noted by the mid-level provider above. I agree with the findings and plan of care. BRENDA MAI MD, [facility] July 03, 2024 15:15
--- NOTE | 2024-07-03 20:53 | PN ---
[facility] PROGRESS NOTE Date Patient Seen: July 03, 2024 Time of Visit: 20:50 Supervising Physician: Dr. Patel Supervising Physician: Dr. Archer Primary Care Physician: [None-recently relocated from [place]] Outpatient Specialists: [ ] Inpatient Consults: [facility] team, nephro: Dr. Dowd, cardio: Dr. Bae] PROBLEM LIST: NETO on CKD POA resolving Uremia-POA Enterocolitis POA Cholelithiasis Mild Distal colonic Diverticulosis POA Severe hyperkalemia-POA Resolved Thrombocytopenia-POA. resolved Severe lactic acidosis-POA, resolved NSTEM Type II from septic shock on arrival INTERVAL HISTORY: No major over night events. Pt is awake alert and oriented x 3 . no further episodes of nausea or vomiting, BNP 3180, He contiues on lasix 40mg IV q 12hrs per nephrology recs. Urine output 1.4 L. Ches XR with bilateral pulmonary vascular congestion. He is pending SNF per case management. currently on 2L. 07/01/2024: At the time of my evaluation, the patient was lying in. The staff nurse reports acute events overnight. The patient remains on cannula and on the monitor he is hemodynamically stable. Laboratory data was notable for a s interval increase of WBC to 11.7, sodium of 134, potassium of 3.0, chloride 94, CO2 24, BUN of 138, creatinine of 6.2 and a GFR of 9. odium count of 135, pot assium of 3.4, chloride of 95, CO2 of 24, BUN of 137, creatinine of 6.4. No new imaging for review. No other complaint. 07/02/2024: At the time of my evaluation, the patient is lying in bed. He warts feeling better today. The patient underwent hemodialysis today 2nd consecutive hemodialysis. On the monitor, the patient is hemodynamically stable and is currently on room air. Laboratory data today showed resolved leukocytosis. H and H and platelet count is stable. Chemistry panel did show a sodium count of 141, a potassium of 2.8, chloride of 99, BUN of 104, creatinine of 5.1 and a GFR of 11. Total calcium of 7.1, magnesium of 1.7. Total protein of 5.5 and a albumin of 2.2. Chest imaging today, showed concern for small pneumothorax per the radiologist's report. The patient continues on antibiotic therapy with Tygacil and micafungin. No complaint. 07/03/2024: At the evaluation, the patient was lying in bed. The staff nurse reports no acute events overnight. Vital signs today are hemodynamically stable and the patient is currently on room air. Laboratory data obtained today showed an interval increase of WBCs to 18.3. H and H and platelet count remained stable. Chemistry panel today was notable for a potassium of 3.0, chloride 97, BUN of 74, creatinine of 3.9 and a GFR of 16. Total calcium of 7.5 and a phosphorus of 5.5. No new imaging for review today. Patient did not undergo dialysis today per the staff nurse he is scheduled for another hemodialysis tomorrow. Currently, the patient remains on antibiotic coverage with micafungin and Tygacil. No other complaint. REVIEW OF SYSTEMS: Unable to perform 12 point ROS due to patient's encephalopathy. PHYSICAL EXAM: GENERAL: Awake, Alert. Generally weak HEENT: Normocephalic, atraumatic, dry mucosa NECK: Supple, no JVD, trachea midline LUNGS: Clear breath sounds bilaterally. No wheezes HEART: Regular rate and rhythm. Normal S1 and S2, positive murmurs , tachycardic ABD: Abdomen soft, nontender. Bowel sounds present EXT: No clubbing, cyanosis, or edema, bilateral feet wound with toe amputations with dressing CDI NEURO: Awake alert and oriented x 3 Vital Signs (last 8hr) Date Time Temp Pulse Resp B/P (MAP) Pulse Ox O2 Delivery O2 Flow Rate FiO2 07/03/24 19:33 97.5 73 18 128/66 96 Room Air 07/03/24 19:30 96 Room Air* 0 21 07/03/24 15:30 97.5 68 17 115/82 99 Nasal Cannula 2.0 LABS: Hematology Labs: Test 07/03/24 05:28 Range/Units White Blood Count 13.3 H 4.8-10.8 K/uL Red Blood Count 3.55 L 4.50-6.20 MIL/uL Hemoglobin 10.6 L 14.0-18.0 g/dL Hematocrit 30.5 L 42-54 % Mean Corpuscular Volume 85.9 79-99 fL Mean Corpuscular Hemoglobin 29.9 27.0-33.0 pg Mean Corpuscular Hemoglobin Concent 34.8 32.0-36.0 g/dL Red Cell Distribution Width 16.2 H 11.0-15.5 % Platelet Count 267 130-400 K/uL Mean Platelet Volume 11.2 H 7.5-10.5 fL Immature Granulocyte % (Auto) 0.6 0-1 % Neutrophils (%) (Auto) 89.6 H 40.0-77.0 % Lymphocytes (%) (Auto) 2.6 L 21.0-51.0 % Monocytes (%) (Auto) 7.0 3.0-13.0 % Eosinophils (%) (Auto) 0.1 0.0-8.0 % Basophils (%) (Auto) 0.1 0.0-5.0 % Neutrophils # (Auto) 11.9 H 1.8-7.7 K/uL Lymphocytes # (Auto) 0.4 L 1.0-4.8 K/uL Monocytes # (Auto) 0.9 0.1-1.0 K/uL Eosinophils # (Auto) 0.01 0.00-0.70 K/uL Basophils # (Auto) 0.01 0.00-0.20 K/uL Absolute Immature Granulocyte (auto 0.08 0-1 K/uL Nucleated Red Blood Cells 0.0 0.0-0.19 % Chemistry Labs: Test 07/03/24 19:39 07/03/24 16:09 07/03/24 05:28 Range/Units Whole Blood Glucose 180 H 70-110 MG/DL Bedside Glucose Comment Notified Nurse Sodium Level 137 136-145 mmol/L Potassium Level 3.0 *L 3.5-5.1 mmol/L Chloride Level 97 L 101-111 mmol/L Carbon Dioxide Level 28 21-32 mmol/L Blood Urea Nitrogen 74 H 7-18 mg/dL Creatinine 3.9 H 0.5-1.3 mg/dL Glomerular Filtration Rate Calc 16 >90 mL/min Random Glucose 226 H 70-105 mg/dL Total Calcium 7.5 L 8.5-10.1 mg/dL Phosphorus Level 5.5 H 2.5-4.9 mg/dL Magnesium Level 2.20 1.80-2.40 mg/dL Total Bilirubin 0.8 0.2-1.0 mg/dL Aspartate Amino Transf (AST/SGOT) 30 10-37 U/L Alanine Aminotransferase (ALT/SGPT) 25 12-78 U/L Alkaline Phosphatase 215 H 50-136 U/L Total Protein 5.7 L 6.0-8.3 g/dL Albumin 2.3 L 3.5-5.0 g/dL DIAGNOSTICS / RADIOLOGY RESULTS: [ ] PLAN Disposition as per primary Pending SNF continue on supplemental oxygen aspiration precautions nutritional support 07/01/2024: For now, going to continue current management for the patient. He is going to continue on oxygen supplementation as ordered. Nephrology discussed with the patient regarding the need for renal replacement therapy to which the patient has agreed and today he underwent a right IJ tunneled hemodialysis catheter placement. Plans are to start hemodialysis later today. We will continue antibiotic/antifungal therapy as ordered. We will follow the recommendation of the treating specialist. We will monitor the patient's progress and response to management. Further orders per attending MD and hospital course. 07/02/2024: For now, we will continue current management for the patient. We will continue antibiotic therapy as ordered. Per the phys asst, we will hold dialysis tomorrow. I am going to repeat a potassium and magnesium level now to ensure adequate correction. If needs be, we will continue to replace electrolytes as necessary. We will follow the recommendation of the treating specialist. We will continue to provide general supportive care, GI and DVT prophylaxis. Further orders per attending MD and hospital course. 07/03/2024: For now, going to continue current management for the patient. We are going to continue antibiotic therapy as ordered and follow the recommendation of the Infectious Disease specialist. Patient will resume his hemodialysis session tomorrow. Patient has been receiving Solu-Cortef Q 8 hours deescalate hours and we will attempt to discontinue. We will repeat surveill ance labs in the morning. We will monitor the patient's progress and response to management we will continue to provide general supportive care, GI and DVT prophylaxis. Further orders per attending MD and hospital course. NEURO: Minimize central acting medications as possible. Maintain fall precautions, adequate lighting during the day PULMONARY: Supplemental 02 as needed. Maintain aspiration precautions at all times CARDIOVASCULAR: Follow hemodynamics. Vital signs per facility protocol GI & NUTRITION: Continue with nutritional support. Continue stool softeners and laxatives as needed. KIDNEYS & ELECTROLYTES: Strict monitoring of intake, output and overall fluid balance. Avoid nephrotoxic medications to the extent possible. Medications to be dosed according to renal function. Monitor electrolytes and replace as needed ENDOCRINE: Maintain blood glucose between 100-180 at all times. Hypoglycemia protocol in place INFECTIOUS DISEASE: Trend temperature, WBC and procalcitonin level Follow cultures, deescalate antibiotics as soon as possible. Panculture if new onset fever ONCOLOGY/HEMATOLOGY/COAGULATION: Monitor for s/s of bleeding Monitor hemoglobin, coagulation studies as needed SKIN: Pressure ulcer prevention per facility protocol Specialty mattress ORTHO/REHAB: Continue PT/OT Prophylaxis: Continue GI and DVT prophylaxis Code Status: Full Resuscitation Disposition: PCCU LALI BOLDEN NP July 03, 2024 20:53
[2024-07-03] MEDS: hydroCORTisone SOD SUCCINATE 100 MG/2 ML VIAL IV SCH (21:02)
[2024-07-04] VITALS (24 sets, daily range): BP systolic 102–173; BP diastolic 63–77; PULSE 62–78; RESP 14–21; TEMP 97.3–98.7; O2SAT 97
[2024-07-04] MEDS: acetaMINOPHEN 325 MG TAB PO PRN (00:58)
--- NOTE | 2024-07-04 01:00 | NUR ---
REPORT REC'D REPORT FROM JOJO OSPINA, PT IN BED, NO ACUTE DISTRESS NOTED
--- NOTE | 2024-07-04 09:03 | NUR ---
Patient to be dialyzed today, no BP medications given as per nursing judgement.
[2024-07-04 09:27] LABS: HEMATOCRIT 28.9 % (42-54); MEAN CORPUSCULAR HEMOGLOBIN 30.5 pg (27.0-33.0); MEAN CORPUSCULAR HGB CONC 34.6 g/dL (32.0-36.0); MEAN CORPUSCULAR VOLUME 88.1 fL (79-99); RED BLOOD CELL COUNT(AUTO) 3.28 MIL/uL (4.50-6.20); RED CELL DISTRIBUTION WIDTH 16.5 % (11.0-15.5); WHITE BLOOD COUNT (AUTO) 11.7 K/uL (4.8-10.8)
--- NOTE | 2024-07-04 10:26 | PN ---
INFECTIOUS DISEASE PROGRESS NOTE Date of Service: July 04, 2024 SUBJECTIVE: This is a 69 year old male patient who was seen and examined at bedside in room 224. Patient is undergoing the 3rd dialysis treatment today. Patient stated he is feeling a lot better. Patient is now on room air and saturating 95%. Upper and lower extremities are less edematous. No fever, temperature is 97.7�. No episodes of emesis reported. We will continue on tigecycline IV and micafungin. PHYSICAL EXAM EYES: Anicteric. Pupils equal and reactive. HENT: No oral thrush seen, moist Oral mucosa. NECK: Supple, no JVD or thyromegaly. LUNGS: Good air entry. No rales, no rhonchi. CARDIOVASCULAR: S1, S2 regular. No murmur heard. ABDOMEN: Soft, non tender, bowel sounds present, no organomegaly. CENTRAL NERVOUS SYSTEM: Awake, alert, oriented x 2. SKIN: No rashes, no swelling. LYMPHATICS: No peripheral lymphadenopathy. MUSCULOSKELETAL: No joint swelling, erythema or tenderness. EXTREMITIES: No cyanosis or clubbing. 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 BACK: No deformity, no pressure ulcer. GENITOURINARY: No dysuria or hematuria. Vital Sign (Last 12 Hours) 07/03/24 07/04/24 07/04/24 07/04/24 23:49 03:57 04:03 07:22 Temp 97.5 98.1 98.8 97.9 Pulse 63 69 78 69 Resp 22 21 21 18 B/P (MAP) 125/72 124/65 173/69 111/63 Pulse Ox 97 98 98 95 O2 Delivery Nasal Cannula Nasal Cannula Nasal Cannula Room Air O2 Flow Rate 2.0 2.0 3.0 07/04/24 07/04/24 07/04/24 07/04/24 09:00 09:15 09:30 09:45 Temp 97.7 97.7 Pulse 72 75 69 72 Resp 14 16 14 14 B/P (MAP) 132/72 107/70 140/73 133/72 O2 Delivery Room Air Room Air Room Air Room Air 07/04/24 07/04/24 10:00 10:15 Pulse 68 74 Resp 14 14 B/P (MAP) 142/75 127/71 O2 Delivery Room Air Room Air Intake & Output (last 24hrs) 07/03/24 07/03/24 07/04/24 14:59 22:59 06:59 Intake Total 100.0 ml Output Total 600 ml 1500 ml Balance -500.0 ml -1500 ml LABS: Laboratory: Test 07/04/24 09:15 07/04/24 05:40 07/03/24 16:09 07/03/24 05:28 Range/Units White Blood Count 11.7 H 4.8-10.8 K/uL Red Blood Count 3.28 L 4.50-6.20 MIL/uL Hemoglobin 10.0 L 14.0-18.0 g/dL Hematocrit 28.9 L 42-54 % Mean Corpuscular Volume 88.1 79-99 fL Mean Corpuscular Hemoglobin 30.5 27.0-33.0 pg Mean Corpuscular Hemoglobin Concent 34.6 32.0-36.0 g/dL Red Cell Distribution Width 16.5 H 11.0-15.5 % Platelet Count 229 130-400 K/uL Mean Platelet Volume 10.9 H 7.5-10.5 fL Nucleated Red Blood Cells 0.0 0.0-0.19 % Whole Blood Glucose 191 H 70-110 MG/DL Bedside Glucose Comment Notified Nurse Immature Granulocyte % (Auto) 0.6 0-1 % Neutrophils (%) (Auto) 89.6 H 40.0-77.0 % Lymphocytes (%) (Auto) 2.6 L 21.0-51.0 % Monocytes (%) (Auto) 7.0 3.0-13.0 % Eosinophils (%) (Auto) 0.1 0.0-8.0 % Basophils (%) (Auto) 0.1 0.0-5.0 % Neutrophils # (Auto) 11.9 H 1.8-7.7 K/uL Lymphocytes # (Auto) 0.4 L 1.0-4.8 K/uL Monocytes # (Auto) 0.9 0.1-1.0 K/uL Eosinophils # (Auto) 0.01 0.00-0.70 K/uL Basophils # (Auto) 0.01 0.00-0.20 K/uL Absolute Immature Granulocyte (auto 0.08 0-1 K/uL Sodium Level 137 136-145 mmol/L Potassium Level 3.0 *L 3.5-5.1 mmol/L Chloride Level 97 L 101-111 mmol/L Carbon Dioxide Level 28 21-32 mmol/L Blood Urea Nitrogen 74 H 7-18 mg/dL Creatinine 3.9 H 0.5-1.3 mg/dL Glomerular Filtration Rate Calc 16 >90 mL/min Random Glucose 226 H 70-105 mg/dL Total Calcium 7.5 L 8.5-10.1 mg/dL Phosphorus Level 5.5 H 2.5-4.9 mg/dL Magnesium Level 2.20 1.80-2.40 mg/dL Total Bilirubin 0.8 0.2-1.0 mg/dL Aspartate Amino Transf (AST/SGOT) 30 10-37 U/L Alanine Aminotransferase (ALT/SGPT) 25 12-78 U/L Alkaline Phosphatase 215 H 50-136 U/L Total Protein 5.7 L 6.0-8.3 g/dL Albumin 2.3 L 3.5-5.0 g/dL ASSESSMENT: Fungemia. 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 Septic shock, resolving. Anemia requiring blood transfusion, status post EGD. Acute renal failure, new onset dialysis. PLAN: Continue tigecycline IV. Continue micafungin. Continue wound care. Continue pain management. Continue dialysis as recommended by [facility]. Avoid nephrotoxic medications. This case was reviewed and discussed with my supervising physician and the above assessment and plan was formulated and agreed upon. ATTESTATION BY PHYSICIAN I have seen and examined the patient. I reviewed the documentation, medical decision making, and treatment plan as noted by the mid-level provider above. I agree with the findings and plan of care. CECIL ROY MD, MIRTA L DIRECTOR OF BUSINESS SYSTEMS July 04, 2024 10:26
[2024-07-04] MEDS: HEParin 5,000 UNIT VIAL IRRIG SCH (11:10)
[2024-07-04 12:40] LABS: ALBUMIN 2.6 g/dL (3.5-5.0); BILIRUBIN,TOTAL 1.1 mg/dL (0.2-1.0); CREATININE 2.3 mg/dL (0.5-1.3); POTASSIUM 3.4 mmol/L (3.5-5.1); TOTAL PROTEIN, SERUM 6.2 g/dL (6.0-8.3)
[2024-07-04] MEDS: CALCIUM CARB 500MG CHEW TAB PO SCH (13:00)
--- NOTE | 2024-07-04 15:53 | PN ---
[facility] PROGRESS NOTE Date of Service: July 04, 2024 Time of Service: 15:52 SUBJECTIVE: Patient is seen and examined at bedside, case discussed with the RN, during my visit the patient resting comfortably in bed, following simple commands, he is on blood pressure support with Levophed, getting sodium bicarbonate IV. BP 108/57, heart rate of 116, saturating 99% on 2 L nasal cannula. Hemoglobin 8.4, hematocrit 27.0, WBC 14.2, platelet count of 28. Sodium 143, potassium 5.0, bicarb of five, BUN 107, creatinine 9.7. ABG with pH of 7.8, pCO2 less than 15, bicarb of 2.3. 06/18 patient has been seen and examined at bedside, case discussed with the RN, patient remains confused, still on pressor support with Levophed and Andrew- Synephrine, patient also on sodium bicarbonate drip. No family members at bedside during my visit. Blood pressure 112/44, heart rate of 91, saturating 93%. CBC with WBC of 16.4, hemoglobin 8.2, hematocrit 23.7, platelet count of 27. Sodium 145, potassium 3.7, BUN of 102, creatinine 10.2, sodium bicarb of 12. ABG with pH of 7.33, pCO2 31, PO2 64, bicarb of 16.1. Septic workup reviewed, blood cultures no growth after 24 hours. Patient getting broad- spectrum IV antibiotics during my visit. CT of the abdomen pelvis probable mild enterocolitis with mild to moderate small and large bowel liquid content, cholelithiasis, urinary wall thickening, more than expected for empty urinary bladder. Mild distal colonic diverticulosis. 06/19 patient is seen and examined at bedside, case discussed with the RN, no acute events overnight, patient is still confused, however less compared to time of admission. Following very simple commands. He is currently off vasopressors. Replace, output since this morning 500 cc. Blood pressure 111/78, afebrile, saturating 96-98% 2 L nasal cannula. WBC trending down at 11.2, hemoglobin 7.6, hematocrit 20.9, platelet count of 14. BUN 108, creatinin e 10.2. ABG shows a pH 7.41, pCO2 37, PO2 81.5, bicarb 23.1. Blood culture showing Alicia tropicalis. Patient has been started on micafungin. Continue antibiotics. Continue critical care input and recommendation, continue Nephrology input and recommendation in terms of renal replacement therapy, continue daily weight, monitor intake and output. Follow anemia workup, stool occult blood, serial CBC transfuse 1 unit of PRBC hemoglobin less than seven, we will request Hematology consultation as well. 06/20 patient seen at bedside, no acute events overnight. He is not requiring pressors he is afebrile, hemodynamically stable saturating well on 2 L nasal cannula. Hemoglobin was 6.1 and platelets low at night, we will be transfused with packed red blood cells and platelets per critical Care, we will follow up post transfusion. Potassium decreased from 3.4 down to 3.2, creatinine stable at 10.2, we will follow up with Nephrology for recommendations. Urine output is improving, he has been started on Lasix, we will follow up. Patient continues on micafungin. Pt reticulocyte count low at 0.18 suggesting decreased production of RBC, FOBT positive as well concerning for GI Bleed. Will consult hematology and GI and follow up 06/21 patient seen at bedside, no acute events overnight. He has been afebrile, hemodynamically stable saturating well on 2 L nasal cannula. He has been NPO ho wever he has no history of volume overload, and his kidney function is decreased, we will perfuse his kidneys with some IV fluids and allow clear liquid diet. Creatinine stable at 9.9, same as yesterday, potassium decreased at 3.0, nephrology to manage potassium levels until renal function improves. Hemoglobin improved from 8.0 up to 8.7, remainder of his labs are relatively unremarkable. 06/22 Pt seen at bedside, no acute events overnight. He has been downgraded from ICU. He has been afebrile, hemodynamically stable, saturating well on room air. Hgb stable at 8.6, similar to yesterday, platelets decreased from 102 down to 82, potassium low at 2.7, will be repleted according to protocol, creatinine improved from 9.9 down to 8.5, sodium improved from 150 down to 146, remainder of his labs are relatively unremarkable. Urine output adequate, approximately 2.3L output in the last 24 hours. On physical exam, no evidence of volume overflow, will continue with IV fluids to perfuse his kidneys. Left foot sunita wing mullins-resistant organism, ID to adjust antibiotics 06/23 patient seen at bedside, no acute events overnight. He is pending EGD with GI today, we will follow up postprocedure. He has been afebrile, hemodynamically stable, mildly hypertensive with systolics in the 150s, saturating well on 3 L nasal cannula. Hemoglobin improved from 8.6 up to 9.0, platelets decreased from 82 down to 78, creatinine continues to improve from 8.5 down to 7.2 with adequate urine output. Potassium low at 3.1, we will be repl eted according to potassium protocol. Patient weak and feeble, we will likely need transitioned to intermediate facility, case management to assist with placement. He will continue daily physical therapy. 06/24 patient seen at bedside, no acute events overnight. EGD was done yesterday no evidence of bleed noted. Patient refusing colonoscopy. Hgb is uptrending from 9.0 up to 9.3 suggesting resolution of GI bleed, platelets improved from 78 up to 87, creatinine improved from 7.2 down to 6.4, potassium low at 3.4, will be repleted according to protocol. Patient will need placement for IV antibiotics 06/25 patient seen at bedside, no acute events overnight. Continues to refuse colonoscopy yesterday he went into AFib with RVR was started on IV amiodarone. He was rate controlled today, likely we will be transitioned to p.o. amiodarone. Now pending placement to continue IV antibiotic and antifungal therapy. We will follow up with case management and Cardiology. Creatinine improved from 6.4 down to 5.9, BUN still elevated at 112. Potassium low at 2.9 will be repleted according to protocol and will give an extra 80meq supplementation. 06/26 patient seen at bedside, no acute events overnight. He has been afebrile, hemodynamically stable saturating well on room air. WBC increased from 11.3 up to 13.1, hemoglobin stable at 9.7, same as yesterday, creatinine stable at 5.9, same as yesterday, BUN increased from 112 up to 117, remainder of his labs are relatively unremarkable. Proximally 1.1 L urine output in the last 24 hours. He is pending placement 06/27 Pt seen at bedside, no acute events overnight. He remains stable, vitals unremarkable. Pending placement 06/28 patient seen at bedside, no acute events overnight. His urine output has been decreasing, his BUN is up trending and his creatinine stable at 5.9. Discuss with Nephrology and we will hold the IV fluids and start a short course of Lasix to see his response. If he does not improve he may end up needing renal replacement therapy. Remainder of his vitals and labs are unremarkable. 06/29 seen at bedside, no acute events overnight. He was started on Lasix yesterday, diuresed proximally 1.4 L and is -992 mL over the last 24 hours. He still appears fluid overloaded. BUN continues to uptrend, creatinine stable at 6.0, similar to yesterday. Continue to monitor renal function, if it continues to deteriorate or urine output decreases, he may need renal replacement therapy. 06/30 patient seen at bedside, no acute events overnight. Renal function lulu nues to deteriorate, nephrology spoke with the patient about worsening renal function and the patient has agreed to transition to dialysis, will follow up with nephrology. 07/01 patient seen at bedside, no acute events overnight. He was in agreement to begin dialysis he will be taken for PermCath placement today and start his 1st session, venous mapping we will be done and CV surgery has been consulted for AV fistula occlusion. Patient's potassium low at 3.0, we will hold off on repletion due to renal dysfunction and defer to Nephrology for management of the electrolytes. Creatinine stable at 6.2, same as yesterday. WBC increased from 10.2 up to 11.7, hemoglobin decreased from 10.8 down to 9.6, remainder of his labs are relatively unremarkable. 07/02 patient seen at bedside, his dialysis catheter was placed yesterday. This morning on chest x-ray there appears to be a 20% pneumothorax, pulmonology has been updated with these findings, we will order a repeat chest x-ray at 1:00 p.m. and follow up. If there is progression of the pneumothorax he may need a chest tube. Patient has had venogram done, he is pending AV fistula creation with CV surgery. Once the CV surgery has been completed and pneumothorax resolves, patient will be good candidate to transitioned to intermediate. At bedside he is in no acute distress, has no complaints although he does seem tearful about having to be on dialysis and he is currently undergoing a dialysis session. 5/ patient seen at bedside, no acute events overnight he continues with dialysis, tolerating well. Nephrology and CV surgery are coordinating the AV fistula procedure, we will follow up with their recommendations. He was hemodynamically stable, labs are appropriately arranged for ESRD, potassium low at 3.0 we will defer to Nephrology for repletion. Patient we will need placement once AV fistula has been completed. 07/04 patient seen at bedside, no acute events overnight he continues with dialysis, tolerating well. Nephrology and CV surgery are coordinating the AV fistula procedure, we will follow up with their recommendations. He IS hemodynamically stable, labs are appropriately arranged for ESRD, potassium improved to 3.4 we will defer to Nephrology for repletion. Patient we will need placement once AV fistula has been completed. REVIEW OF SYSTEMS 12 point review of systems negative unless noted in HPI PHYSICAL EXAM GENERAL APPEARANCE: The patient remains confused. Withdrawing to painful stimulation. NEUROLOGICAL: Cranial nerves II-XII grossly intact. Motor is 5/5 in bilateral upper and lower extremities proximal to distal. No sensory deficits. HEENT: Face is symmetric. Pupils are equal and reactive. Extraocular movements are intact. NECK: Supple. No JVD. No thyromegaly. No submental, submandibular, pre- /postauricular, occipital or supraclavicular lymphadenopathy. CHEST: Normal chest expansion. No Telemetry. LUNGS: Absence of any rales, rhonchi or any wheezing. CARDIOVASCULAR: Regular. S1 and S2 normal. No appreciable rubs, murmurs or gallops. ABDOMEN: Soft, nontender, and nondistended. There is no rebound, voluntary guarding, or rigidity. : Deferred. No Gallagher. EXTREMITIES: Non-edematous and not cyanotic. No clubbing. Good capillary refill. SKIN: No skin breakdown. Vital Signs (last 8hr) Date Time Temp Pulse Resp B/P (MAP) Pulse Ox O2 Delivery O2 Flow Rate FiO2 07/04/24 12:30 97.3 70 16 125/72 Room Air 07/04/24 12:15 97.3 73 16 115/65 Room Air 07/04/24 12:00 66 14 132/69 Room Air 07/04/24 11:45 74 14 130/71 Room Air 07/04/24 11:34 97.3 75 18 113/69 97 Room Air 07/04/24 11:30 71 14 113/69 Room Air 07/04/24 11:15 70 14 154/70 Room Air 07/04/24 11:00 62 14 147/69 Room Air 07/04/24 10:45 68 14 139/74 Room Air 07/04/24 10:30 69 14 129/77 Room Air 07/04/24 10:15 74 14 127/71 Room Air 07/04/24 10:00 68 14 142/75 Room Air 07/04/24 09:45 72 14 133/72 Room Air 07/04/24 09:30 69 14 140/73 Room Air 07/04/24 09:15 97.7 75 16 107/70 Room Air 07/04/24 09:00 97.7 72 14 132/72 Room Air 07/04/24 08:38 97 Room Air* 0 21 LABS: Laboratory: Test 07/04/24 12:18 07/04/24 11:38 07/04/24 09:15 07/03/24 16:09 Range/Units Sodium Level 138 136-145 mmol/L Potassium Level 3.4 L 3.5-5.1 mmol/L Chloride Level 98 L 101-111 mmol/L Carbon Dioxide Level 31 21-32 mmol/L Blood Urea Nitrogen 41 H 7-18 mg/dL Creatinine 2.3 H 0.5-1.3 mg/dL Glomerular Filtration Rate Calc 30 >90 mL/min Random Glucose 161 H 70-105 mg/dL Total Calcium 7.6 L 8.5-10.1 mg/dL Total Bilirubin 1.1 H 0.2-1.0 mg/dL Aspartate Amino Transf (AST/SGOT) 29 10-37 U/L Alanine Aminotransferase (ALT/SGPT) 26 12-78 U/L Alkaline Phosphatase 233 H 50-136 U/L Total Protein 6.2 6.0-8.3 g/dL Albumin 2.6 L 3.5-5.0 g/dL Whole Blood Glucose 121 H 70-110 MG/DL White Blood Count 11.7 H 4.8-10.8 K/uL Red Blood Count 3.28 L 4.50-6.20 MIL/uL Hemoglobin 10.0 L 14.0-18.0 g/dL Hematocrit 28.9 L 42-54 % Mean Corpuscular Volume 88.1 79-99 fL Mean Corpuscular Hemoglobin 30.5 27.0-33.0 pg Mean Corpuscular Hemoglobin Concent 34.6 32.0-36.0 g/dL Red Cell Distribution Width 16.5 H 11.0-15.5 % Platelet Count 229 130-400 K/uL Mean Platelet Volume 10.9 H 7.5-10.5 fL Nucleated Red Blood Cells 0.0 0.0-0.19 % Bedside Glucose Comment Notified Nurse Test 07/03/24 05:28 Range/Units Immature Granulocyte % (Auto) 0.6 0-1 % Neutrophils (%) (Auto) 89.6 H 40.0-77.0 % Lymphocytes (%) (Auto) 2.6 L 21.0-51.0 % Monocytes (%) (Auto) 7.0 3.0-13.0 % Eosinophils (%) (Auto) 0.1 0.0-8.0 % Basophils (%) (Auto) 0.1 0.0-5.0 % Neutrophils # (Auto) 11.9 H 1.8-7.7 K/uL Lymphocytes # (Auto) 0.4 L 1.0-4.8 K/uL Monocytes # (Auto) 0.9 0.1-1.0 K/uL Eosinophils # (Auto) 0.01 0.00-0.70 K/uL Basophils # (Auto) 0.01 0.00-0.20 K/uL Absolute Immature Granulocyte (auto 0.08 0-1 K/uL Phosphorus Level 5.5 H 2.5-4.9 mg/dL Magnesium Level 2.20 1.80-2.40 mg/dL Current Medications Medications (Trade) Dose Ordered Sig/Roderick Route PRN Reason Start Time Stop Time Status Last Admin Dose Admin Acetaminophen (TYLenol 325MG TAB) 650 mg Q6H PRN PO MILD PAIN (1-3) 07/04/24 01:00 08/03/24 00:59 07/04/24 00:58 650 MG Albuterol Sulfate (Proventil 0.083% 2.5mg/3ml) 10 mg ONCE STAT IH 06/17/24 04:05 06/17/24 04:12 DC 06/17/24 04:31 10 MG Amiodarone HCl 360 mg/Dextrose 200 ml @ 0 mls/hr PROTOCOL IV 4/23/25 14:30 06/25/24 09:16 DC 06/24/24 15:51 33.33 MLS/HR Amiodarone HCl 540 mg/Dextrose 300 ml @ 0 mls/hr PROTOCOL IV 06/24/24 21:00 07/24/24 20:59 06/24/24 20:42 16.7 MLS/HR Amlodipine Besylate (NorvASC 5MG TAB) 5 mg BID PO 06/22/24 09:00 07/22/24 08:59 07/03/24 21:02 5 MG Apixaban (EliquIS) 5 mg BID PO 06/24/24 14:30 06/30/24 19:54 DC 06/30/24 11:10 5 MG Calcium Carbonate (Tums 500 Mg Chew Tab) 500 tab ONCE PO 06/26/24 15:30 07/26/24 15:29 Cancel Calcium Carbonate (Tums 500 Mg Chew Tab) 500 tab ONCE PO 07/04/24 13:00 08/03/24 12:59 Calcium Carbonate (Tums 500 Mg Chew Tab) 500 tab Q6H6 PRN PO GI UPSET/UPSET STOMACH 06/28/24 12:00 07/28/24 11:59 07/04/24 13:08 500 TAB Calcium Gluconate (Calcium Gluc 1gm Vial) 1 gm AD STAT IV 06/17/24 04:05 06/17/24 04:12 DC 06/17/24 04:21 1 GM Cefepime HCl (MAXipime 1 GM vial) 0.25 gm Q24H IVPB 06/17/24 04:00 06/18/24 04:06 DC 06/17/24 04:58 0.25 GM Cefepime HCl (MAXipime 1 GM vial) 1 gm Q24H IVPB 06/20/24 05:00 06/22/24 16:09 DC 06/22/24 03:12 1 GM Cefepime HCl 0.25 gm/Sodium Chloride 50 ml @ 100 mls/hr Q24H IVPB 06/18/24 04:30 06/19/24 10:58 DC 06/19/24 05:26 100 MLS/HR Dextrose (D50w) 50 ml AD PRN IV HYPOGLYCEMIA PROTOCOL 06/17/24 01:00 06/17/24 01:01 DC Dextrose (D50w) 50 ml AD PRN IV HYPOGLYCEMIA PROTOCOL 06/17/24 01:00 07/17/24 00:59 Dextrose (D50w) 50 ml ONCE STAT IV 06/17/24 04:05 06/17/24 04:12 DC 06/17/24 04:21 50 ML Epoetin Rylan-epbx (Retacrit) 10,000 unit [id number] SQ 06/24/24 14:00 06/24/24 13:53 DC Epoetin Rylan-epbx (Retacrit) 10,000 unit QMOWEFR@1600 SQ 06/29/24 15:00 07/29/24 14:59 07/03/24 16:14 10,000 UNIT Epoetin Rylan-epbx (Retacrit) 10,000 unit QWEEK SQ 06/24/24 14:00 06/29/24 14:23 DC 06/24/24 14:37 10,000 UNIT Famotidine (Pepcid 20mg Vial) 20 mg Q48H IV 06/17/24 01:00 07/17/24 00:59 07/03/24 00:42 20 MG Folic Acid (FOLic ACID 1 MG TABLET) 1 mg DAILY PO 06/25/24 09:00 07/25/24 08:59 07/04/24 08:03 1 MG Furosemide (LASix 40MG VIAL) 40 mg Q12H IV 06/28/24 21:00 07/02/24 10:34 DC 07/02/24 09:05 40 MG Furosemide (LASix 40MG VIAL) 40 mg Q8H IV 06/19/24 18:30 06/20/24 18:31 DC 06/20/24 18:54 40 MG Glucagon (Glucagon 1mg Kit) 1 mg AD PRN IM HYPOGLYCEMIA PROTOCOL 06/17/24 01:00 06/17/24 01:01 DC Glucagon (Glucagon 1mg Kit) 1 mg AD PRN IM HYPOGLYCEMIA PROTOCOL 06/17/24 01:00 07/17/24 00:59 Heparin Sodium (Porcine) (HEParin 5,000 UNIT VIAL) 10,000 unit AD IRRIG 07/01/24 14:00 07/31/24 13:59 07/04/24 11:10 10,000 UNIT Hydralazine HCl ([id number] TAB) 25 mg TID PO 06/22/24 09:00 07/22/24 08:59 07/03/24 21:02 25 MG Hydrocortisone Sodium Succinate (Solu-corTEF 100MG) 50 mg ONCE@1930 IV 06/22/24 19:30 06/22/24 22:30 DC 06/22/24 19:59 50 MG Hydrocortisone Sodium Succinate (Solu-corTEF 100MG) 50 mg Q12H IV 07/03/24 21:00 07/23/24 05:59 07/04/24 08:03 50 MG Hydrocortisone Sodium Succinate (Solu-corTEF 100MG) 50 mg Q8H IV 06/18/24 11:30 06/22/24 15:46 DC 06/22/24 03:12 50 MG Hydrocortisone Sodium Succinate (Solu-corTEF 100MG) 50 mg Q8H6 IV 06/23/24 06:00 07/03/24 20:49 DC 07/03/24 14:12 50 MG Hydromorphone HCl (DiLAUDid 0.5MG INJ) 0.5 mg Q4H PRN IVP SEVERE PAIN (7-10) 06/20/24 13:00 06/25/24 12:59 DC 06/21/24 23:50 0.5 MG Insulin Human Regular (humuLIN R 100 UNIT/ML 3ML) 10 unit ONCE STAT IV 06/17/24 04:05 06/17/24 04:12 DC 06/17/24 04:28 10 UNIT Insulin Human Regular (humuLIN R 100 UNIT/ML 3ML) INSULIN SLIDING SCAL... ACHS SQ 06/17/24 07:30 07/17/24 07:29 07/03/24 21:04 2 UNIT Lactated Ringer's 1,000 ml @ 130 mls/hr Q7H42M IV 06/21/24 09:30 06/28/24 09:51 DC 06/28/24 09:03 130 MLS/HR Lactobacillus Rhamnosus ([facility]) 1 each BID PO 06/28/24 10:00 07/28/24 09:59 07/04/24 08:03 1 EACH Leptospermum Honey ([facility]) 1 appl DAILY TP 06/19/24 09:00 07/19/24 08:59 07/04/24 08:04 1 APPL Magnesium Sulfate 50 ml @ 0 mls/hr PROTOCOL PRN IV MAGNESIUM PROTOCOL 06/23/24 11:30 07/23/24 11:29 07/02/24 18:32 25 MLS/HR Metoprolol Tartrate (loprESSOR) 25 mg BID PO 06/24/24 14:30 07/24/24 14:29 07/04/24 08:03 25 MG Metronidazole/ Sodium Chloride (flaGYL) 500 mg Q8H IV 06/17/24 05:00 06/27/24 04:59 DC 06/26/24 21:48 500 MG Micafungin Sodium 100 ml @ 100 mls/hr Q24H IV 06/18/24 00:00 07/18/24 00:00 07/03/24 23:50 100 MLS/HR Morphine Sulfate (morPHINE 2MG SYG) 2 mg Q4H PRN IVP SEVERE PAIN (7-10) 06/29/24 00:30 07/01/24 16:10 DC 07/01/24 01:35 2 MG Norepinephrine 250 ml @ 0 mls/hr PROTOCOL IV 06/16/24 22:00 06/22/24 07:20 DC 06/17/24 05:33 24.5 MLS/HR Ondansetron HCl (zoFRAN 4MG INJ) 4 mg Q6H PRN IVP NAUSEA/VOMITING 06/23/24 20:30 07/23/24 20:29 07/02/24 16:33 4 MG Pharmacy Profile Note (Lace Assessment) 1 each AD MISC 06/19/24 15:30 06/20/24 12:49 DC Pharmacy Profile Note (Pharmacy Communication) 1 each ONCE MISC 06/17/24 23:00 06/19/24 07:13 DC 06/17/24 23:31 1 EACH Pharmacy Profile Note (Pharmacy Communication) 1 each ONCE MISC 06/22/24 16:30 06/23/24 07:22 DC Pharmacy Profile Note (Pharmacy Communication) 1 each ONCE MISC 06/30/24 12:30 06/30/24 12:08 DC Pharmacy Profile Note (Pharmacy Communication) 1 each ONCE MISC 06/30/24 14:30 06/30/24 14:16 DC Phenylephrine HCl 100 mg/Sodium Chloride 250 ml @ 0 mls/hr AD PRN IV TITRATE 06/17/24 10:30 06/22/24 07:20 DC 06/18/24 05:48 27 MLS/HR Piperacillin Sod/ Tazobactam Sod (Zosyn 3.375gm+NS 50ml) 3.375 gm Q12H IV 06/16/24 21:30 06/17/24 01:03 DC 06/16/24 21:42 3.375 GM Piperacillin Sod/ Tazobactam Sod (Zosyn 3.375gm+NS 50ml) 3.375 gm Q12H IVPB 06/17/24 01:00 06/17/24 04:00 DC 06/17/24 02:54 3.375 GM Potassium Chloride 100 ml @ 100 mls/hr AD PRN IV POTASSIUM PROTOCOL 06/21/24 08:00 07/21/24 07:59 07/01/24 05:21 100 MLS/HR Potassium Chloride 100 ml @ 100 mls/hr AD PRN IV POTASSIUM PROTOCOL 06/23/24 11:30 07/23/24 11:29 Potassium Chloride (K-Dur/Klor-Con 20meq) 20 meq AD PRN PO POTASSIUM PROTOCOL 06/23/24 11:30 07/23/24 11:29 07/02/24 18:32 20 MEQ Potassium Chloride (K-Dur/Klor-Con 20meq) 40 meq BID PO 06/22/24 09:00 06/22/24 21:01 DC 06/22/24 19:54 40 MEQ Potassium Chloride (K-Dur/Klor-Con 20meq) 40 meq BID PO 06/25/24 09:00 06/28/24 09:51 DC 06/27/24 09:23 40 MEQ Potassium Chloride (KCl 10% Elixir 20meq/15ml) 20 meq AD PRN PO POTASSIUM PROTOCOL 06/23/24 11:30 07/23/24 11:29 Sodium Bicarbonate / Dextrose 1,000 ml @ 0 mls/hr Q0M IVP 06/17/24 05:00 06/17/24 04:58 DC Sodium Bicarbonate 150 meq/Dextrose 1,150 ml @ 50 mls/hr Q23H IVP 06/18/24 08:00 06/19/24 12:24 DC 06/18/24 20:23 100 MLS/HR Sodium Bicarbonate 150 meq/Dextrose 1,150 ml @ 100 mls/hr [id number] IVP 06/17/24 05:00 06/18/24 04:44 DC 06/17/24 21:00 100 MLS/HR Sodium Polystyrene Sulfonate (kayEXALate 15 GM/60 ML) 15 gm Q2H PO 06/16/24 21:30 06/16/24 23:31 DC 06/16/24 22:21 15 GM Sodium Chloride 1,000 ml @ 0 mls/hr ONCE IV 07/01/24 14:00 07/31/24 13:59 07/04/24 11:09 100 MLS/HR Sodium Chloride 1,000 ml @ 150 mls/hr Q6H40M IV 06/16/24 23:00 06/17/24 09:10 DC 06/17/24 05:15 150 MLS/HR Sodium Chloride (NS 50ml) 50 ml AD IV 06/17/24 01:00 06/17/24 01:05 DC Sucralfate (Carafate) 1 gm BID PO 06/28/24 12:30 06/28/24 22:30 DC 06/28/24 20:56 1 GM Sucralfate (Carafate) 1 gm BID PO 07/03/24 09:00 08/02/24 08:59 07/04/24 08:03 1 GM Thiamine HCl (Vitamin B-1) 100 mg DAILY IVP 06/17/24 09:00 07/17/24 08:59 07/04/24 08:04 100 MG Tigecycline 100 mg/Sodium Chloride 100 ml @ 200 mls/hr ONCE IV 06/22/24 16:30 06/23/24 07:21 DC 06/22/24 18:51 200 MLS/HR Tigecycline 50 mg/ Sodium Chloride 100 ml @ 200 mls/hr BID@0600,1800 IV 06/23/24 06:00 06/30/24 05:59 DC 06/29/24 17:57 200 MLS/HR Tigecycline 50 mg/ Sodium Chloride 100 ml @ 200 mls/hr BID@0600,1800 IV 06/30/24 18:00 06/30/24 19:53 DC 06/30/24 19:50 200 MLS/HR Tigecycline 50 mg/ Sodium Chloride 100 ml @ 200 mls/hr BID@0800,2000 IV 07/01/24 08:00 07/10/24 07:59 07/04/24 08:03 200 MLS/HR Vancomycin HCl (Vancomycin 750mg) 750 mg Q96H IVPB 06/20/24 22:00 06/17/24 14:00 DC Vancomycin HCl (Vancomycin Protocol) 1 each AD IV 06/17/24 01:30 06/17/24 14:01 DC Vitamin B Complex/ Vit C/Folic Acid (Nephrovite Tablet) 1 cap DAILY PO 06/24/24 09:00 07/24/24 08:59 07/04/24 08:03 1 CAP Wound Care/ Dressing Products (Venelex Ointment) 1 APPL BID TP 06/28/24 21:00 07/28/24 20:59 07/04/24 08:04 1 GM DIAGNOSTICS / RADIOLOGY: [ ] ASSESSMENT: Severe metabolic acidosis, resolved POA Septic shock requiring vasopressor, resolved POA Paroxysmal afib with RVR, rate controlled Fungemia 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, POA Acute on chronic renal failure, progressing to ESRD POA New onset ESRD on dialysis Hyperkalemia, resolved Hypokalemia Chronic anemia POA Acute thrombocytopenia POA Failure to thrive POA Acute encephalopathy, improving DM2 last A1c 7.3 Dyslipidemia Peripheral artery disease Osteomyelitis with recent amputation to both feet POA Hypertension PLAN: Continue PCCU Continue manager monitoring Continue metoprolol 25mg BID Continue apixaban 5mg BID Continue dialysis per nephrology CV surgery consulted for AV fistula placement Continue the patient on broad-spectrum IV antibiotics, continue micafungin. Nephrology consulted, appreciate recommendations Stop LR @ 130 cc/hr Start furosemide 40mg IV BID Continue clear liquid diet, will advance tomorrow GI consulted, appreciate recommendations Hematology consulted, appreciate recommendations Anemia workup. Transfuse as needed. Hematology consultation requested per Follow critical care input and recommendation Disposition: Pending dialysis, AV fistula creation, placement AL CARDONA MD July 04, 2024 15:53
--- NOTE | 2024-07-04 18:21 | PN ---
NEPHROLOGY NOTE SUBJECTIVE: This patient has been evaluated and seen for dialysis, seen several times. This patient has renal failure, anemia, hypotension, multiple other comorbidities. No other associated findings. No other aggravating or relieving factors. The systemic review is unchanged. The patient has no other associated findings. PHYSICAL EXAMINATION: VITAL SIGNS: Blood pressure is 125/72, pulse 70, respiratory rate is 16. HEENT: Head is atraumatic, normocephalic. Pupils are round and reactive to light. Sclerae are anicteric. Conjunctivae not pale. Oral mucosa is not dry. NECK: Without masses or bruits. Thyroid is palpable. Neck has no bruits. CHEST: Shows equal thoracic percussion note being resonant in all areas. CARDIAC: Regular rhythm. No rub, no S3 or S4, no parasternal heave. ABDOMEN: No guarding, tenderness. Bowel sounds are normoactive. No free fluid. EXTREMITIES: With no edema. LABORATORY DATA: We have reviewed available labs in detail. Old records revealed hemoglobin ____. White cell count is 11.7. PROBLEMS: * Advance renal failure * Diabetic nephropathy. * Hypertension * Gastroesophageal reflux disease. * Other comorbidities PLAN: Continued monitoring. The patient is requesting Tums, can be carefully used. Continued followup on renal function, electrolytes. Steroids will be tapered. The patient remains on broad spectrum antibiotics. Intake, output, weight will be monitored. Has atrial fibrillation, I have discussed with as a team physician. Blood pressure medicine will be modified as needed. Condition is guarded. Seen several times today. I thank you for this patient. The patient was seen for dialysis and seen multiple times. TID: [id number] RECEIPT: [id number]
--- NOTE | 2024-07-04 18:48 | PN ---
NEPHROLOGY NOTE SUBJECTIVE: The patient has been evaluated and seen for dialysis. Seen several times. The patient is critically ill. The patient has no other fevers, chills, rigors. No cough, expectoration of hemoptysis. No abdominal pain, nausea, vomiting. No chest pain. No orthopnea, PND. Other systemic review is unchanged. PHYSICAL EXAMINATION: GENERAL: The patient is in no other distress or deformities, lying in bed. VITAL SIGNS: Blood pressure is 143/70. Respiratory rate is 18. NECK: Supple. No masses or bruits. Thyroid is palpable. CHEST: Equal thoracic percussion note being resonant in all areas. CARDIAC: Regular rhythm. No rub, no S3 or S4, no parasternal heave. ABDOMEN: No guarding or tenderness. Bowel sounds are normoactive. No free fluid. BACK: No tenderness or back deformities. LABORATORY DATA: Reviewed and old records reviewed. IMAGING STUDIES: Personally reviewed. PROBLEMS: * Renal failure. * Anemia. * Multiple other comorbidities * Mental status changes before. * The patient has been treated for hypertension. * Renal failure is now end stage. * Previous hyperkalemia. PLAN: Dialysis continuous. Follow up on renal function and electrolyte. Intake, output, weight will be monitored. Nonsteroidal drugs will be avoided. Dose of medicine will be adjusted and we will be following up closely. Condition remains guarded. The patient was seen and seen for dialysis and seen multiple times. TID: [id number] RECEIPT: [id number]
--- NOTE | 2024-07-04 21:34 | PN ---
[facility] PROGRESS NOTE Date Patient Seen: July 04, 2024 Time of Visit: 21:32 Supervising Physician: Dr. Patel Supervising Physician: Dr. Archer Primary Care Physician: [None-recently relocated from [place]] Outpatient Specialists: [ ] Inpatient Consults: [facility] team, nephro: Dr. Dowd, cardio: Dr. Bae] PROBLEM LIST: NETO on CKD POA resolving Uremia-POA Enterocolitis POA Cholelithiasis Mild Distal colonic Diverticulosis POA Severe hyperkalemia-POA Resolved Thrombocytopenia-POA. resolved Severe lactic acidosis-POA, resolved NSTEM Type II from septic shock on arrival INTERVAL HISTORY: No major over night events. Pt is awake alert and oriented x 3 . no further episodes of nausea or vomiting, BNP 3180, He contiues on lasix 40mg IV q 12hrs per nephrology recs. Urine output 1.4 L. Ches XR with bilateral pulmonary vascular congestion. He is pending SNF per case management. currently on 2L. 07/01/2024: At the time of my evaluation, the patient was lying in. The staff nurse reports acute events overnight. The patient remains on cannula and on the monitor he is hemodynamically stable. Laboratory data was notable for a s interval increase of WBC to 11.7, sodium of 134, potassium of 3.0, chloride 94, CO2 24, BUN of 138, creatinine of 6.2 and a GFR of 9. odium count of 135, pot assium of 3.4, chloride of 95, CO2 of 24, BUN of 137, creatinine of 6.4. No new imaging for review. No other complaint. 07/02/2024: At the time of my evaluation, the patient is lying in bed. He warts feeling better today. The patient underwent hemodialysis today 2nd consecutive hemodialysis. On the monitor, the patient is hemodynamically stable and is currently on room air. Laboratory data today showed resolved leukocytosis. H and H and platelet count is stable. Chemistry panel did show a sodium count of 141, a potassium of 2.8, chloride of 99, BUN of 104, creatinine of 5.1 and a GFR of 11. Total calcium of 7.1, magnesium of 1.7. Total protein of 5.5 and a albumin of 2.2. Chest imaging today, showed concern for small pneumothorax per the radiologist's report. The patient continues on antibiotic therapy with Tygacil and micafungin. No complaint. 07/03/2024: At the evaluation, the patient was lying in bed. The staff nurse reports no acute events overnight. Vital signs today are hemodynamically stable and the patient is currently on room air. Laboratory data obtained today showed an interval increase of WBCs to 18.3. H and H and platelet count remained stable. Chemistry panel today was notable for a potassium of 3.0, chloride 97, BUN of 74, creatinine of 3.9 and a GFR of 16. Total calcium of 7.5 and a phosphorus of 5.5. No new imaging for review today. Patient did not undergo dialysis today per the staff nurse he is scheduled for another hemodialysis tomorrow. Currently, the patient remains on antibiotic coverage with micafungin and Tygacil. No other complaint. 07/04/2024: At the time of my evaluation, the patient lying in bed. He was undergoing hemodialysis. Per the hemodialysis nurse, the patient had a interval hypotensive events which later corrected. The patient remains on room air and no respiratory events is noted. Laboratory data showed improved WBC count now to 11.7 H&H and platelet count are stable. Chemistry panel today was notable for a potassium of 3.4, BUN 41, creatinine of 2.2 and a GFR of 30. Total bilirubin of 1.1 with of transaminitis and alkaline phosphatase of 233. No new imaging for review today no other concern. REVIEW OF SYSTEMS: A 12 point system review was carried out, pertinent positives of documented above otherwise negative PHYSICAL EXAM: GENERAL: Awake, Alert. Generally weak HEENT: Normocephalic, atraumatic, dry mucosa NECK: Supple, no JVD, trachea midline LUNGS: Clear breath sounds bilaterally. No wheezes HEART: Regular rate and rhythm. Normal S1 and S2, positive murmurs , tachycardic ABD: Abdomen soft, nontender. Bowel sounds present EXT: No clubbing, cyanosis, or edema, bilateral feet wound with toe amputations with dressing CDI NEURO: Awake alert and oriented x 3 Vital Signs (last 8hr) Date Time Temp Pulse Resp B/P (MAP) Pulse Ox O2 Delivery O2 Flow Rate FiO2 07/04/24 19:00 98.1 66 18 146/71 97 Room Air 07/04/24 16:31 97.9 62 18 122/76 94 Room Air LABS: Hematology Labs: Test 07/04/24 09:15 07/03/24 05:28 Range/Units White Blood Count 11.7 H 4.8-10.8 K/uL Red Blood Count 3.28 L 4.50-6.20 MIL/uL Hemoglobin 10.0 L 14.0-18.0 g/dL Hematocrit 28.9 L 42-54 % Mean Corpuscular Volume 88.1 79-99 fL Mean Corpuscular Hemoglobin 30.5 27.0-33.0 pg Mean Corpuscular Hemoglobin Concent 34.6 32.0-36.0 g/dL Red Cell Distribution Width 16.5 H 11.0-15.5 % Platelet Count 229 130-400 K/uL Mean Platelet Volume 10.9 H 7.5-10.5 fL Nucleated Red Blood Cells 0.0 0.0-0.19 % Immature Granulocyte % (Auto) 0.6 0-1 % Neutrophils (%) (Auto) 89.6 H 40.0-77.0 % Lymphocytes (%) (Auto) 2.6 L 21.0-51.0 % Monocytes (%) (Auto) 7.0 3.0-13.0 % Eosinophils (%) (Auto) 0.1 0.0-8.0 % Basophils (%) (Auto) 0.1 0.0-5.0 % Neutrophils # (Auto) 11.9 H 1.8-7.7 K/uL Lymphocytes # (Auto) 0.4 L 1.0-4.8 K/uL Monocytes # (Auto) 0.9 0.1-1.0 K/uL Eosinophils # (Auto) 0.01 0.00-0.70 K/uL Basophils # (Auto) 0.01 0.00-0.20 K/uL Absolute Immature Granulocyte (auto 0.08 0-1 K/uL Chemistry Labs: Test 07/04/24 19:36 07/04/24 12:18 07/03/24 16:09 07/03/24 05:28 Range/Units Whole Blood Glucose 192 H 70-110 MG/DL Sodium Level 138 136-145 mmol/L Potassium Level 3.4 L 3.5-5.1 mmol/L Chloride Level 98 L 101-111 mmol/L Carbon Dioxide Level 31 21-32 mmol/L Blood Urea Nitrogen 41 H 7-18 mg/dL Creatinine 2.3 H 0.5-1.3 mg/dL Glomerular Filtration Rate Calc 30 >90 mL/min Random Glucose 161 H 70-105 mg/dL Total Calcium 7.6 L 8.5-10.1 mg/dL Total Bilirubin 1.1 H 0.2-1.0 mg/dL Aspartate Amino Transf (AST/SGOT) 29 10-37 U/L Alanine Aminotransferase (ALT/SGPT) 26 12-78 U/L Alkaline Phosphatase 233 H 50-136 U/L Total Protein 6.2 6.0-8.3 g/dL Albumin 2.6 L 3.5-5.0 g/dL Bedside Glucose Comment Notified Nurse Phosphorus Level 5.5 H 2.5-4.9 mg/dL Magnesium Level 2.20 1.80-2.40 mg/dL DIAGNOSTICS / RADIOLOGY RESULTS: [ ] PLAN Disposition as per primary Pending SNF continue on supplemental oxygen aspiration precautions nutritional support 07/01/2024: For now, going to continue current management for the patient. He is going to continue on oxygen supplementation as ordered. Nephrology discussed with the patient regarding the need for renal replacement therapy to which the patient has agreed and today he underwent a right IJ tunneled hemodialysis catheter placement. Plans are to start hemodialysis later today. We will continue antibiotic/antifungal therapy as ordered. We will follow the recommendation of the treating specialist. We will monitor the patient's progress and response to management. Further orders per attending MD and hospital course. 07/02/2024: For now, we will continue current management for the patient. We will continue antibiotic therapy as ordered. Per the manager net, we will hold dialysis tomorrow. I am going to repeat a potassium and magnesium level now to ensure adequate correction. If needs be, we will continue to replace electrolytes as necessary. We will follow the recommendation of the treating specialist. We will continue to provide general supportive care, GI and DVT prophylaxis. Further orders per attending MD and hospital course. 07/03/2024: For now, going to continue current management for the patient. We are going to continue antibiotic therapy as ordered and follow the recommendation of the Infectious Disease specialist. Patient will resume his hemodialysis session tomorrow. Patient has been receiving Solu-Cortef Q 8 hours deescalate hours and we will attempt to discontinue. We will repeat surveillance labs in the morning. We will monitor the patient's progress and response to management we will continue to provide general supportive care, GI and DVT prophylaxis. Further orders per attending MD and hospital course. 07/04/2024: For now, we are going to continue current management for the patient. We are going to follow recommendation of the treating specialist. The patient we will continue hemodialysis as scheduled and we will await plans for long-term hemodialysis access. Patient will continue on antibiotic therapy as ordered. I discussed the findings and plan for further management with the patient. We will monitor the patient's progress and response to management. We will continue to provide general supportive care, GI and DVT prophylaxis. Further orders per attending MD and hospital course. NEURO: Minimize central acting medications as possible. Maintain fall precautions, adequate lighting during the day PULMONARY: Supplemental 02 as needed. Maintain aspiration precautions at all times CARDIOVASCULAR: Follow hemodynamics. Vital signs per facility protocol GI & NUTRITION: Continue with nutritional support. Continue stool softeners and laxatives as needed. KIDNEYS & ELECTROLYTES: Strict monitoring of intake, output and overall fluid balance. Avoid nephrotoxic medications to the extent possible. Medications to be dosed according to renal function. Monitor electrolytes and replace as needed ENDOCRINE: Maintain blood glucose between 100-180 at all times. Hypoglycemia protocol in place INFECTIOUS DISEASE: Trend temperature, WBC and procalcitonin level Follow cultures, deescalate antibiotics as soon as possible. Panculture if new onset fever ONCOLOGY/HEMATOLOGY/COAGULATION: Monitor for s/s of bleeding Monitor hemoglobin, coagulation studies as needed SKIN: Pressure ulcer prevention per facility protocol Specialty mattress ORTHO/REHAB: Continue PT/OT Prophylaxis: Continue GI and DVT prophylaxis Code Status: Full Resuscitation Disposition: PCCU ALLI BOLDEN NP July 04, 2024 21:34
[2024-07-05] VITALS (7 sets, daily range): BP systolic 107–133; BP diastolic 52–70; PULSE 62–67; RESP 18–19; TEMP 97.6–98.4; O2SAT 99
[2024-07-05 03:39] LABS: BASOPHILS # (AUTO) 0.01 K/uL (0.00-0.20); BASOPHILS % (AUTO) 0.1 % (0.0-5.0); EOSINOPHILS # (AUTO) 0.01 K/uL (0.00-0.70); EOSINOPHILS % (AUTO) 0.1 % (0.0-8.0); HEMATOCRIT 30.8 % (42-54); LYMPHOCYTES # (AUTO) 0.6 K/uL (1.0-4.8); LYMPHOCYTES % (AUTO) 3.9 % (21.0-51.0); MEAN CORPUSCULAR HEMOGLOBIN 30.4 pg (27.0-33.0); MEAN CORPUSCULAR HGB CONC 35.4 g/dL (32.0-36.0); MONOCYTES % (AUTO) 6.9 % (3.0-13.0); NEUTROPHILS % (AUTO) 88.3 % (40.0-77.0); PLATELET COUNT (AUTO) 193 K/uL (130-400); RED BLOOD CELL COUNT(AUTO) 3.58 MIL/uL (4.50-6.20); RED CELL DISTRIBUTION WIDTH 16.3 % (11.0-15.5); WHITE BLOOD COUNT (AUTO) 14.7 K/uL (4.8-10.8)
[2024-07-05 03:55] LABS: CREATININE 3.1 mg/dL (0.5-1.3); MAGNESIUM 1.7 mg/dL (1.80-2.40); PHOSPHORUS 3.9 mg/dL (2.5-4.9); POTASSIUM 3.1 mmol/L (3.5-5.1)
--- NOTE | 2024-07-05 10:11 | PN ---
NEPHROLOGY PROGRESS NOTE Date/Time Patient Seen: July 05, 2024 SUBJECTIVE: This is a 69-year-old male with a past medical history of peripheral artery disease with osteomyelitis S/p left 4th and 5th toe and right 3rd toe amputation, anemia, chronic pain, diabetes mellitus type 2, hypertension, hyperlipidemia, chronic kidney disease, recent COVID-19 infection. He presented to the emergency room via EMS from [facility] with complaints of low platelets, poor appetite and generalized weakness. Influenza and COVID swabs were negative CT of the abdomen showed mild enterocolitis with mild to moderate small and large bowel liquid contents. He was admitted to the ICU for further medical management of septic shock He continues to require vasopressors to maintain blood pressure. Blood cultures were positive for Alicia tropicalis He continues on antibiotics In the emergency room he was noted to have elevated BUN/creatinine and hyperkalemia. Renal function continued to worsen He has been started on renal replacement therapy Tolerated dialysis without difficulty. He was seen in the medical floor, in no acute distress Family at the bedside Condition remains critical and guarded REVIEW OF SYSTEMS: GENERAL: Negative for any nausea, vomiting, fevers, chills, or weight loss. NEUROLOGIC: Negative for any blurry vision, blind spots, double vision, facial asymmetry, dysphagia, dysarthria, hemiparesis, hemisensory deficits, vertigo, ataxia. HEENT: Negative for any head trauma, neck trauma, neck stiffness, photophobia, phonophobia, sinusitis, rhinitis. CARDIAC: Negative for any chest pain, dyspnea on exertion, paroxysmal nocturnal dyspnea, peripheral edema. PULMONARY: Negative for any shortness of breath, wheezing, COPD, or TB exposure. GASTROINTESTINAL: Negative for any abdominal pain, nausea, vomiting, bright red blood per rectum, melena. GENITOURINARY: Negative for any dysuria, hematuria, incontinence. INTEGUMENTARY: Negative for any rashes, cuts, insect bites. RHEUMATOLOGIC: Negative for any joint pains, photosensitive rashes, history of vasculitis or kidney problems. HEMATOLOGIC: Negative for any abnormal bruising, frequent infections or bleeding. PHYSICAL EXAM: GENERAL: Lethargic. No acute distress. Well-nourished. EYES: EOMI. Anicteric. HENT: Moist mucous membranes. No scleral icterus. No cervical lymphadenopathy. LUNGS: Clear to auscultation bilaterally. No accessory muscle use. CARDIOVASCULAR: Regular rate and rhythm. No murmur. No JVD. ABDOMEN: Soft, non-tender and non-distended. No palpable masses. EXTREMITIES: No edema. Non-tender. SKIN: No rashes or lesions. Warm. NEUROLOGIC: No focal neurological deficits. CN II-XII grossly intact, but not individually tested. PSYCHIATRIC: Cooperative. Appropriate mood and affect. LABORATORY: [ ] Hematology Labs: Test 07/05/24 03:08 Range/Units White Blood Count 14.7 #H 4.8-10.8 K/uL Red Blood Count 3.58 L 4.50-6.20 MIL/uL Hemoglobin 10.9 L 14.0-18.0 g/dL Hematocrit 30.8 L 42-54 % Mean Corpuscular Volume 86.0 79-99 fL Mean Corpuscular Hemoglobin 30.4 27.0-33.0 pg Mean Corpuscular Hemoglobin Concent 35.4 32.0-36.0 g/dL Red Cell Distribution Width 16.3 H 11.0-15.5 % Platelet Count 193 130-400 K/uL Mean Platelet Volume 11.2 H 7.5-10.5 fL Immature Granulocyte % (Auto) 0.7 0-1 % Neutrophils (%) (Auto) 88.3 H 40.0-77.0 % Lymphocytes (%) (Auto) 3.9 L 21.0-51.0 % Monocytes (%) (Auto) 6.9 3.0-13.0 % Eosinophils (%) (Auto) 0.1 0.0-8.0 % Basophils (%) (Auto) 0.1 0.0-5.0 % Neutrophils # (Auto) 13.0 H 1.8-7.7 K/uL Lymphocytes # (Auto) 0.6 L 1.0-4.8 K/uL Monocytes # (Auto) 1.0 0.1-1.0 K/uL Eosinophils # (Auto) 0.01 0.00-0.70 K/uL Basophils # (Auto) 0.01 0.00-0.20 K/uL Absolute Immature Granulocyte (auto 0.10 0-1 K/uL Nucleated Red Blood Cells 0.0 0.0-0.19 % Chemistry Labs: Test 07/05/24 06:02 07/05/24 03:08 07/04/24 12:18 07/03/24 16:09 Range/Units Whole Blood Glucose 98 70-110 MG/DL Sodium Level 136 136-145 mmol/L Potassium Level 3.1 L 3.5-5.1 mmol/L Chloride Level 99 L 101-111 mmol/L Carbon Dioxide Level 31 21-32 mmol/L Blood Urea Nitrogen 60 H 7-18 mg/dL Creatinine 3.1 H 0.5-1.3 mg/dL Glomerular Filtration Rate Calc 21 >90 mL/min Random Glucose 77 # 70-105 mg/dL Total Calcium 7.4 L 8.5-10.1 mg/dL Phosphorus Level 3.9 2.5-4.9 mg/dL Magnesium Level 1.70 L 1.80-2.40 mg/dL Total Bilirubin 1.1 H 0.2-1.0 mg/dL Aspartate Amino Transf (AST/SGOT) 29 10-37 U/L Alanine Aminotransferase (ALT/SGPT) 26 12-78 U/L Alkaline Phosphatase 233 H 50-136 U/L Total Protein 6.2 6.0-8.3 g/dL Albumin 2.6 L 3.5-5.0 g/dL Bedside Glucose Comment Notified Nurse DIAGNOSTICS / RADIOLOGY: REASON: monitor pneumothorax for progression ORDERING PHYSICIAN: AL CARDONA MD PROCEDURE: CXR1VW - CHEST 1VW CHEST 1VW HISTORY: Pneumothorax COMPARISON: None FINDINGS: A frontal projection of the chest was obtained. Bilateral lower lung pulmonary infiltrates are seen. The heart is borderline enlarged. Degenerative changes are seen. No evidence of aortic calcification is seen. IMPRESSION: 1. Bilateral lower lung pulmonary infiltrates. DICTATED BY: PEDRO VERDUGO MD DATE: 07/02/24 1614 REASON: FVO ORDERING PHYSICIAN: LALI BOLDEN NP PROCEDURE: CXR1VW - CHEST 1VW CHEST 1VW HISTORY: [facility] COMPARISON: 06/30/2024 FINDINGS: A frontal projection of the chest was obtained. Mild bilateral pulmonary infiltrates are seen may be related to mild pulmonary vascular congestion with possible superimposed pneumonitis. Right venous catheter is seen with distal tip in the plane of the atriocaval junction. PICC line is also seen entering from the right with distal tip in plane of the superior vena cava. There is 20% right pneumothorax. The heart is borderline enlarged. All the lines and tubes are again seen in place. No evidence of aortic calcification is seen. IMPRESSION: 1. Mild bilateral pulmonary infiltrates are seen may be related to mild pulmonary vascular congestion with possible superimposed pneumonitis. 20% right pneumothorax. Report was given to the critical care team. DICTATED BY: PEDRO VERDUGO MD DATE: 07/02/24938 REASON: ORDERING PHYSICIAN: BRENDA MAI MD PROCEDURE: CATH PROC - LEGAL FINANCIAL SPECIALIST PROCEDURE REQUEST LEGAL FINANCIAL SPECIALIST PROCEDURE REQUEST INDICATION: ESRD, hemodialysis. DRUM TENDER: Dr Jackson PROCEDURE DETAILS: Informed consent was obtained after discussion of the risks, benefits and alternatives to treatment. Sterile Prep: All elements of maximal sterile barrier technique, including hand hygiene and cutaneous antisepsis were used. A time-out was performed prior to the procedure. Anesthesia type: 14 mL of 1% lidocaine subcutaneous. Patient also received 1 mg Versed intravenous, 25 mcg fentanyl intravenous. Vital signs monitored and observed by catheter lab nursing staff. Contrast: None Estimated blood loss: Less than 5 cc. TECHNIQUE: Imaging guidance: Ultrasound demonstrates right internal jugular vein to be patent. Access: Right internal jugular vein Venous access device: 28 cm Duramax Bioflow catheter Fluoroscopy time: 0.2 minutes Intraprocedural or immediate post-procedural complications: None FINDINGS: Sonographic evaluation of the access vein: The length of the target vessel was evaluated for internal echoes, stenosis and patency. The access vessel is patent. Catheter tip location: Right atrium Additional observations: Both ports were flushed and heparin packed. Both ports were clamped and capped. Sterile dressing applied. No observed complications. IMPRESSION: Insertion of right internal jugular vein tunneled hemodialysis catheter. The catheter may be used immediately. DICTATED BY: APOLONIA JACKSON DO DATE: 07/01/2434 REASON: VEIN MAPPING ORDERING PHYSICIAN: RUSTY TIERNEY MD PROCEDURE: VEIN M UNI - US VEIN MAPPING UNI/LTD US VEIN MAPPING UNI/LTD HISTORY: Preop COMPARISON: None TECHNIQUE: Ultrasound upper extremity venous mapping study was performed for hemodialysis access. FINDINGS: Left cephalic vein High upper arm: 12 x 2 millimeter Mid upper arm: 9 x 2 millimeter Low upper arm: 4 x 2 millimeter High forearm: 7 x 1 millimeter Mid forearm: 8 x 2 millimeter Low forearm: 2 x 2 millimeter Left basilic vein Upper arm: 15 x 3 millimeter Lower arm: 14 x 2 millimeter Antecubital fossa: 7 x 2 millimeter IMPRESSION: 1. Ultrasound upper extremity venous mapping study as described above. DICTATED BY: PEDRO VERDUGO MD DATE: 07/01/24 1937 REASON: new start dialysis pt ORDERING PHYSICIAN: BRENDA MAI MD PROCEDURE: CXR1VW - CHEST 1VW CHEST 1VW HISTORY: Dialysis COMPARISON: 06/29/2024 FINDINGS: A frontal projection of the chest was obtained. Mild bilateral pulmonary infiltrates are seen may be related to mild pulmonary vascular congestion with possible superimposed pneumonitis. The heart is borderline enlarged. All the lines and tubes are again seen in place. No evidence of aortic calcification is seen. IMPRESSION: 1. Mild bilateral pulmonary infiltrates are seen may be related to mild pulmonary vascular congestion with possible superimposed pneumonitis. DICTATED BY: PEDRO VERDUGO MD DATE: 06/30/24 1627 REASON: hypoxia resp failure ORDERING PHYSICIAN: SMITA BRICE PROCEDURE: CXR1VW - CHEST 1VW CHEST 1VW HISTORY: Hypoxia COMPARISON: 06/09/2024 FINDINGS: A frontal projection of the chest was obtained. There are bilateral pulmonary infiltrates suggestive of pulmonary vascular congestion with possible superimposed pneumonitis. The heart is borderline enlarged. Degenerative changes are seen. No evidence of aortic calcification is seen. IMPRESSION: 1. Bilateral pulmonary infiltrates are seen suggestive of pulmonary vascular congestion with possible superimposed pneumonitis. DICTATED BY: PEDRO VERDUGO MD DATE: 06/29/24 1245 REASON: SOB ORDERING PHYSICIAN: LALI BOLDEN NP PROCEDURE: CXR1VW - CHEST 1VW PORTABLE CHEST RADIOGRAPH INDICATION: SOB COMPARISON: 06/18/2024 FINDINGS: yard labor supervisor leads overlie the field of view. Tip of right PICC within the SVC. Heart remains enlarged. The pulmonary vascularity and mauricio appear normal. No abnormal pulmonary parenchymal opacity or consolidation identified. No significant pleural effusion noted. No pneumothorax detected. IMPRESSION: Stable cardiac megaly without radiographic evidence for any acute cardiopulmonary process. DICTATED BY: ROLANDO HAN MD DATE: 06/19/24 1011 REASON: SOB ORDERING PHYSICIAN: LALI BOLDEN NP PROCEDURE: CXR1VW - CHEST 1VW PORTABLE CHEST RADIOGRAPH INDICATION: SOB COMPARISON: 06/16/2024 FINDINGS: yard labor supervisor leads overlie the field of view. Patient positioning is not optimal, but the radiologic examination is still believed to be of reasonable diagnostic quality. Stable right PICC. Stable heart size. Mild calcific plaque is present along the aortic arch rosales. The pulmonary vascularity and mauricio appear normal. Suspect very small layering right and very small left pleural effusions with subjacent passive linear opacities. No evidence for consolidation. No pneumothorax detected. IMPRESSION: Suspect very small layering right and very small left pleural effusions with subjacent passive atelectasis. DICTATED BY: ROLANDO HAN MD DATE: 06/19/24 1021 REASON: sob ORDERING PHYSICIAN: LILIAM LACY PROCEDURE: ECHO [facility] - ECHO 2-D COMPLETE APPROVED REPORT EXAM: Two-dimensional and M-mode echocardiogram with Doppler and color Doppler. INDICATION ICD: R06.02 Shortness of breath 2D Dimensions RVDd 5.0 cm LVEF(%) 68.3 (>50%) LVED Vol(simp.) 128.0 mL IVSd 1.4 (0.7-1.1cm) FS(%) 38 % LVES Vol(simp.) 51.0 mL LVDd 4.2 (3.8-5.6cm) LA (2D) 4.0 (1.6-4.0cm) LVEF(%, simp.) 60 % PWd 1.5 (0.7-1.1cm) Ao Root(2D) 4.0 (2.0-3.7cm) LA ESV INDEX (BP) 37.99 mL/m2 LVDs 2.6 (2.5-4.0cm) LVOT diam 2.3 (1.8-2.4cm) IVC diam 2.1 cm Deformation Strain Apical 4 -19.0 % Apical 2 -15.0 % Apical 3 -16.0 % Global Strain -17.0 % M-Mode Dimensions EPSS 1.1 cm LA (MM) 4.0 (1.6-4.0cm) Ao Root(MM) 3.0 (2.0-3.7cm) Aortic Valve AoV Vmax 2.5 m/s Ao Peak GR 24.7 mmHg LVOT Vmax 1.5 m/s AoV VTI 0.4 m Ao Mean GR 15.1 mmHg LVOT VTI 0.29 m DEBORA (VMAX) 2.9 cm2 DEBORA (VTI) 2.9 cm2 Mitral Valve MV E Vmax 144.9 cm/s DECEL Time 175 ms MV A Vmax 128.2 cm/s P 1/2 T 58 ms E/A ratio 1.1 MVA (PHT) 3.8 cm2 TDI E/E' Medial 16.1 E/E' Lateral 14.5 Medial E' Peak V 9.00 cm/s Lateral E' Peak V 10.00 cm/s Pulmonary Valve PV Vmax 1.3 m/s Tricuspid Valve TR Vmax 2.7 m/s RAP (EST) 3 mmHg RVSP 32.3 mmHg TR Peak GR 29.3 mmHg Left Ventricle The left ventricle is normal size. GS -17%. Hyoerdynamic LV with normal LV segmental wall motion. Moderate concentric left ventricular hypertrophy. LVEF is 60-65%. Grade 2 diastolic dysfunction. Right Ventricle The right ventricle is moderately dilated, measuring 5.0 cm. The right ventricular systolic function is normal. Atria The left atrium is mildly dilated with an LA ESV index of 38 mL/m�. The right atrium is moderately dilated. Aortic Valve Aortic valve is trileaflet, with mild sclerosis of the left coronary cusp. The aortic valve is seen to open near normally. No aortic regurgitation is present. There is no aortic valvular stenosis. Mitral Valve Mitral valve leaflets open well. Posterior annular and leaflet calcification noted. There is no mitral valve regurgitation noted. There is no mitral valve stenosis. Tricuspid Valve The tricuspid valve is normal in structure. There is trace of tricuspid valve regurgitation noted. Pulmonic Valve The pulmonary valve is normal in structure. There is no pulmonic valvular regurgitation. Great Vessels The aortic root is normal in size. The IVC is normal in size and collapses >50% with inspiration. Pericardium There is no pericardial effusion. Other Information Quality : Adequate Conclusion The left ventricle is normal size. Moderate concentric left ventricular hypertrophy. GS -17%. Hyoerdynamic LV with normal LV segmental wall motion. LVEF is 60-65%. Grade 2 diastolic dysfunction. Aortic valve is trileaflet, with mild sclerosis of the left coronary cusp. The aortic valve is seen to open near normally. There is no aortic valvular stenosis. Mitral valve leaflets open well. Posterior annular and leaflet calcification noted. There is no mitral valve stenosis. There is no mitral valve regurgitation noted. There is no pericardial effusion. DICTATED BY: KATJA LANDRY MD DATE: 06/17/24 0847 REASON: RENAL FAILURE ORDERING PHYSICIAN: EUSEBIO POWELL PROCEDURE: ABD PEL WO - CT ABDOMEN/PELVIS W/O CONTRAST CT ABDOMEN WITHOUT CONTRAST. CT PELVIS WITHOUT CONTRAST. INDICATION: Renal failure TECHNIQUE: Routine transaxial imaging using 5 mm slice thickness through the abdomen and pelvis without the administration of IV contrast. Thin slice reconstructions are also provided. Coronal and sagittal reformatted images acquired for interpretation. CT was performed with one or more of the following dose reduction techniques: Automated exposure control, adjustment of the mA and/or kV according to patient size, or use of iterative reconstruction technique. COMPARISON: None FINDINGS: Diagnostic sensitivity of this examination is limited by patient motion artifact. ON NONCONTRAST IMAGING: ABDOMEN: Heart size is normal. Mitral annular calcific plaque. Visible lung bases are clear. No abnormal renal calcifications, hydronephrosis, perinephric inflammation, or proximal hydroureter detected. The liver is normal in size and smooth in contour without biliary duct dilation. The spleen is normal in size and attenuation. Several miniscule calcifications within the gallbladder lumen. The pancreas appears normal without pancreatic duct dilation. The adrenal glands appear normal. No significant abdominal, retrocrural or retroperitoneal adenopathy noted. No evidence for intra-abdominal free air or organized fluid collection. Mild calcific plaque is noted along the abdominal aortic and iliac vessel rosales without aneurysmal dilation. PELVIS: Gallagher catheter within the nearly empty urinary bladder. Urinary bladder wall thickening is more than expected for empty urinary bladder. No evidence for free air or organized pelvic fluid collection. No significant pelvic adenopathy detected. Mild to moderate small and large bowel liquid contents. A few diverticula along the distal colon. Terminal ileum appears unremarkable. The appendix appears normal. Mild thoracolumbar spondylosis. IMPRESSION: 1. Probable mild enterocolitis with mild to moderate small and large bowel liquid contents. 2. Cholelithiasis. 3. Urinary bladder wall thickening, more than expected for empty urinary bladder. Correlation with urine studies is recommended. 4. Mild distal colonic diverticulosis. 5. Arteriosclerotic disease as described. DICTATED BY: ROLANDO HAN MD DATE: 06/17/24 1000 REASON: NETO ORDERING PHYSICIAN: BRENDA MAI MD PROCEDURE: RENAL - US RENAL SONOGRAM ULTRASOUND RENAL COMPLETE INDICATION: NETO TECHNIQUE: Routine ultrasound of the kidneys and urinary bladder with grayscale and color Doppler imaging was performed in real-time, and subsequently made available for review. COMPARISON: No prior studies available for comparison. FINDINGS: The right kidney measures 9.7 x 4.9 x 4.6 cm. No abnormal mass demonstrated. No evidence for hydronephrosis or shadowing stone. The left kidney measures 10.1 x 5.5 x 4.8 cm. No abnormal mass demonstrated. No evidence for hydronephrosis or shadowing stone. Urinary bladder wall thickness measures 4.0 mm, but exaggerated due to incomplete distention. No free fluid demonstrated. IMPRESSION: Normal sonographic appearance of the kidneys and urinary bladder. DICTATED BY: ROLANDO HAN MD DATE: 06/17/2449 REASON: cp ORDERING PHYSICIAN: MARY CARR MD PROCEDURE: CXR1VW - CHEST 1VW PORTABLE CHEST RADIOGRAPH INDICATION: cp COMPARISON: 05/06/2024 FINDINGS: yard labor supervisor leads overlie the field of view. Tip of right PICC within the SVC. Heart size is normal. Mild calcific plaque is present along the aortic arch rosales. The pulmonary vascularity and mauricio appear normal. No abnormal pulmonary parenchymal opacity or consolidation identified. No significant pleural effusion noted. No pneumothorax detected. IMPRESSION: No radiographic evidence for any acute cardiopulmonary process. DICTATED BY: ROLANDO HAN MD DATE: 06/16/24 3978 ASSESSMENT: Acute on chronic renal failure Severe Lactic acidosis Metabolic acidosis Hyperkalemia Septic shock, requiring vasopressor Acute encephalopathy Thrombocytopenia NSTEMI, rule-out demand ischemia vs true cardiac etiology Failure to thrive History of osteomyelitis with recent amputation Elevated troponin Elevated BNP Diabetes mellitus type 2 Hypertension Hyperlipidemia Peripheral artery disease PLAN: Labs, diagnostic, radiologic exams reviewed and interpreted by myself and supervising physician. We have reviewed external records in detail Continue dialysis schedule Order CBC, CMP, and electrolytes in am Follow up culture results BiPAP as necessary, for respiratory distress Monitor blood pressure adjust medication doses as needed Avoid hypotensive episodes May use Dilaudid 0.5 mg IV every 6 hours as needed for severe pain Monitor blood sugars Strict intake, output, and daily weight should be monitored Please renally adjust medications Avoid nephrotoxic and nonsteroidal drugs Avoid contrast if possible Will continue to monitor renal function, anemia, electrolytes Treatment plan discussed with patient Questions were answered We have discussed with the other team physicians in detail about the care plan We will continue to monitor the patient closely ATTESTATION BY PHYSICIAN I have seen and examined the patient. I reviewed the documentation, medical decision making, and treatment plan as noted by the mid-level provider above. I agree with the findings and plan of care. BRENDA MAI MD, [facility] July 05, 2024 10:11
--- NOTE | 2024-07-05 14:37 | PN ---
[facility] PROGRESS NOTE Date of Service: July 05, 2024 Time of Service: 14:36 SUBJECTIVE: Patient is seen and examined at bedside, case discussed with the RN, during my visit the patient resting comfortably in bed, following simple commands, he is on blood pressure support with Levophed, getting sodium bicarbonate IV. BP 108/57, heart rate of 116, saturating 99% on 2 L nasal cannula. Hemoglobin 8.4, hematocrit 27.0, WBC 14.2, platelet count of 28. Sodium 143, potassium 5.0, bicarb of five, BUN 107, creatinine 9.7. ABG with pH of 7.8, pCO2 less than 15, bicarb of 2.3. 06/18 patient has been seen and examined at bedside, case discussed with the RN, patient remains confused, still on pressor support with Levophed and Andrew- Synephrine, patient also on sodium bicarbonate drip. No family members at bedside during my visit. Blood pressure 112/44, heart rate of 91, saturating 93%. CBC with WBC of 16.4, hemoglobin 8.2, hematocrit 23.7, platelet count of 27. Sodium 145, potassium 3.7, BUN of 102, creatinine 10.2, sodium bicarb of 12. ABG with pH of 7.33, pCO2 31, PO2 64, bicarb of 16.1. Septic workup reviewed, blood cultures no growth after 24 hours. Patient getting broad- spectrum IV antibiotics during my visit. CT of the abdomen pelvis probable mild enterocolitis with mild to moderate small and large bowel liquid content, cholelithiasis, urinary wall thickening, more than expected for empty urinary bladder. Mild distal colonic diverticulosis. 06/19 patient is seen and examined at bedside, case discussed with the RN, no acute events overnight, patient is still confused, however less compared to time of admission. Following very simple commands. He is currently off vasopressors. Replace, output since this morning 500 cc. Blood pressure 111/78, afebrile, saturating 96-98% 2 L nasal cannula. WBC trending down at 11.2, hemoglobin 7.6, hematocrit 20.9, platelet count of 14. BUN 108, creatinin e 10.2. ABG shows a pH 7.41, pCO2 37, PO2 81.5, bicarb 23.1. Blood culture showing Alicia tropicalis. Patient has been started on micafungin. Continue antibiotics. Continue critical care input and recommendation, continue Nephrology input and recommendation in terms of renal replacement therapy, continue daily weight, monitor intake and output. Follow anemia workup, stool occult blood, serial CBC transfuse 1 unit of PRBC hemoglobin less than seven, we will request Hematology consultation as well. 06/20 patient seen at bedside, no acute events overnight. He is not requiring pressors he is afebrile, hemodynamically stable saturating well on 2 L nasal cannula. Hemoglobin was 6.1 and platelets low at night, we will be transfused with packed red blood cells and platelets per critical Care, we will follow up post transfusion. Potassium decreased from 3.4 down to 3.2, creatinine stable at 10.2, we will follow up with Nephrology for recommendations. Urine output is improving, he has been started on Lasix, we will follow up. Patient continues on micafungin. Pt reticulocyte count low at 0.18 suggesting decreased production of RBC, FOBT positive as well concerning for GI Bleed. Will consult hematology and GI and follow up 06/21 patient seen at bedside, no acute events overnight. He has been afebrile, hemodynamically stable saturating well on 2 L nasal cannula. He has been NPO ho wever he has no history of volume overload, and his kidney function is decreased, we will perfuse his kidneys with some IV fluids and allow clear liquid diet. Creatinine stable at 9.9, same as yesterday, potassium decreased at 3.0, nephrology to manage potassium levels until renal function improves. Hemoglobin improved from 8.0 up to 8.7, remainder of his labs are relatively unremarkable. 06/22 Pt seen at bedside, no acute events overnight. He has been downgraded from ICU. He has been afebrile, hemodynamically stable, saturating well on room air. Hgb stable at 8.6, similar to yesterday, platelets decreased from 102 down to 82, potassium low at 2.7, will be repleted according to protocol, creatinine improved from 9.9 down to 8.5, sodium improved from 150 down to 146, remainder of his labs are relatively unremarkable. Urine output adequate, approximately 2.3L output in the last 24 hours. On physical exam, no evidence of volume overflow, will continue with IV fluids to perfuse his kidneys. Left foot sunita wing mullins-resistant organism, ID to adjust antibiotics 06/23 patient seen at bedside, no acute events overnight. He is pending EGD with GI today, we will follow up postprocedure. He has been afebrile, hemodynamically stable, mildly hypertensive with systolics in the 150s, saturating well on 3 L nasal cannula. Hemoglobin improved from 8.6 up to 9.0, platelets decreased from 82 down to 78, creatinine continues to improve from 8.5 down to 7.2 with adequate urine output. Potassium low at 3.1, we will be repl eted according to potassium protocol. Patient weak and feeble, we will likely need transitioned to [facility] facility, case management to assist with placement. He will continue daily physical therapy. 06/24 patient seen at bedside, no acute events overnight. EGD was done yesterday no evidence of bleed noted. Patient refusing colonoscopy. Hgb is uptrending from 9.0 up to 9.3 suggesting resolution of GI bleed, platelets improved from 78 up to 87, creatinine improved from 7.2 down to 6.4, potassium low at 3.4, will be repleted according to protocol. Patient will need placement for IV antibiotics 06/25 patient seen at bedside, no acute events overnight. Continues to refuse colonoscopy yesterday he went into AFib with RVR was started on IV amiodarone. He was rate controlled today, likely we will be transitioned to p.o. amiodarone. Now pending placement to continue IV antibiotic and antifungal therapy. We will follow up with case management and Cardiology. Creatinine improved from 6.4 down to 5.9, BUN still elevated at 112. Potassium low at 2.9 will be repleted according to protocol and will give an extra 80meq supplementation. 06/26 patient seen at bedside, no acute events overnight. He has been afebrile, hemodynamically stable saturating well on room air. WBC increased from 11.3 up to 13.1, hemoglobin stable at 9.7, same as yesterday, creatinine stable at 5.9, same as yesterday, BUN increased from 112 up to 117, remainder of his labs are relatively unremarkable. Proximally 1.1 L urine output in the last 24 hours. He is pending placement 06/27 Pt seen at bedside, no acute events overnight. He remains stable, vitals unremarkable. Pending placement 06/28 patient seen at bedside, no acute events overnight. His urine output has been decreasing, his BUN is up trending and his creatinine stable at 5.9. Discuss with Nephrology and we will hold the IV fluids and start a short course of Lasix to see his response. If he does not improve he may end up needing renal replacement therapy. Remainder of his vitals and labs are unremarkable. 06/29 seen at bedside, no acute events overnight. He was started on Lasix yesterday, diuresed proximally 1.4 L and is -992 mL over the last 24 hours. He still appears fluid overloaded. BUN continues to uptrend, creatinine stable at 6.0, similar to yesterday. Continue to monitor renal function, if it continues to deteriorate or urine output decreases, he may need renal replacement therapy. 06/30 patient seen at bedside, no acute events overnight. Renal function lulu nues to deteriorate, nephrology spoke with the patient about worsening renal function and the patient has agreed to transition to dialysis, will follow up with nephrology. 07/01 patient seen at bedside, no acute events overnight. He was in agreement to begin dialysis he will be taken for PermCath placement today and start his 1st session, venous mapping we will be done and CV surgery has been consulted for AV fistula occlusion. Patient's potassium low at 3.0, we will hold off on repletion due to renal dysfunction and defer to Nephrology for management of the electrolytes. Creatinine stable at 6.2, same as yesterday. WBC increased from 10.2 up to 11.7, hemoglobin decreased from 10.8 down to 9.6, remainder of his labs are relatively unremarkable. 07/02 patient seen at bedside, his dialysis catheter was placed yesterday. This morning on chest x-ray there appears to be a 20% pneumothorax, pulmonology has been updated with these findings, we will order a repeat chest x-ray at 1:00 p.m. and follow up. If there is progression of the pneumothorax he may need a chest tube. Patient has had venogram done, he is pending AV fistula creation with CV surgery. Once the CV surgery has been completed and pneumothorax resolves, patient will be good candidate to transitioned to [facility]. At bedside he is in no acute distress, has no complaints although he does seem tearful about having to be on dialysis and he is currently undergoing a dialysis session. 5/2 patient seen at bedside, no acute events overnight he continues with dialysis, tolerating well. Nephrology and CV surgery are coordinating the AV fistula procedure, we will follow up with their recommendations. He was hemodynamically stable, labs are appropriately arranged for ESRD, potassium low at 3.0 we will defer to Nephrology for repletion. Patient we will need placement once AV fistula has been completed. 5/3 patient seen at bedside, no acute events overnight he continues with dialysis, tolerating well. Nephrology and CV surgery are coordinating the AV fistula procedure, we will follow up with their recommendations. He IS hemodynamically stable, labs are appropriately arranged for ESRD, potassium improved to 3.4 we will defer to Nephrology for repletion. Patient we will need placement once AV fistula has been completed. 5/4 patient seen at bedside, no acute events overnight he continues with dialysis, tolerating well. Nephrology and CV surgery are coordinating the AV fistula procedure, we will follow up with their recommendations. He IS hemodynamically stable, labs are appropriately arranged for ESRD, potassium low at 3.1 we will defer to Nephrology for repletion. Patient will need placement once AV fistula has been completed. REVIEW OF SYSTEMS 12 point review of systems negative unless noted in HPI PHYSICAL EXAM GENERAL APPEARANCE: The patient remains confused. Withdrawing to painful stimulation. NEUROLOGICAL: Cranial nerves II-XII grossly intact. Motor is 5/5 in bilateral upper and lower extremities proximal to distal. No sensory deficits. HEENT: Face is symmetric. Pupils are equal and reactive. Extraocular movements are intact. NECK: Supple. No JVD. No thyromegaly. No submental, submandibular, pre- /postauricular, occipital or supraclavicular lymphadenopathy. CHEST: Normal chest expansion. No Telemetry. LUNGS: Absence of any rales, rhonchi or any wheezing. CARDIOVASCULAR: Regular. S1 and S2 normal. No appreciable rubs, murmurs or gallops. ABDOMEN: Soft, nontender, and nondistended. There is no rebound, voluntary guarding, or rigidity. : Deferred. No Gallagher. EXTREMITIES: Non-edematous and not cyanotic. No clubbing. Good capillary refill. SKIN: No skin breakdown. Vital Signs (last 8hr) Date Time Temp Pulse Resp B/P (MAP) Pulse Ox O2 Delivery O2 Flow Rate FiO2 5/4/25 12:00 97.5 65 19 127/62 97 Room Air 07/05/24 09:30 98.2 65 18 131/70 99 Room Air 0.0 07/05/24 08:00 99 Room Air* 0 21 LABS: Laboratory: Test 07/05/24 11:31 07/05/24 03:08 07/04/24 12:18 07/03/24 16:09 Range/Units Whole Blood Glucose 100 70-110 MG/DL White Blood Count 14.7 #H 4.8-10.8 K/uL Red Blood Count 3.58 L 4.50-6.20 MIL/uL Hemoglobin 10.9 L 14.0-18.0 g/dL Hematocrit 30.8 L 42-54 % Mean Corpuscular Volume 86.0 79-99 fL Mean Corpuscular Hemoglobin 30.4 27.0-33.0 pg Mean Corpuscular Hemoglobin Concent 35.4 32.0-36.0 g/dL Red Cell Distribution Width 16.3 H 11.0-15.5 % Platelet Count 193 130-400 K/uL Mean Platelet Volume 11.2 H 7.5-10.5 fL Immature Granulocyte % (Auto) 0.7 0-1 % Neutrophils (%) (Auto) 88.3 H 40.0-77.0 % Lymphocytes (%) (Auto) 3.9 L 21.0-51.0 % Monocytes (%) (Auto) 6.9 3.0-13.0 % Eosinophils (%) (Auto) 0.1 0.0-8.0 % Basophils (%) (Auto) 0.1 0.0-5.0 % Neutrophils # (Auto) 13.0 H 1.8-7.7 K/uL Lymphocytes # (Auto) 0.6 L 1.0-4.8 K/uL Monocytes # (Auto) 1.0 0.1-1.0 K/uL Eosinophils # (Auto) 0.01 0.00-0.70 K/uL Basophils # (Auto) 0.01 0.00-0.20 K/uL Absolute Immature Granulocyte (auto 0.10 0-1 K/uL Nucleated Red Blood Cells 0.0 0.0-0.19 % Sodium Level 136 136-145 mmol/L Potassium Level 3.1 L 3.5-5.1 mmol/L Chloride Level 99 L 101-111 mmol/L Carbon Dioxide Level 31 21-32 mmol/L Blood Urea Nitrogen 60 H 7-18 mg/dL Creatinine 3.1 H 0.5-1.3 mg/dL Glomerular Filtration Rate Calc 21 >90 mL/min Random Glucose 77 # 70-105 mg/dL Total Calcium 7.4 L 8.5-10.1 mg/dL Phosphorus Level 3.9 2.5-4.9 mg/dL Magnesium Level 1.70 L 1.80-2.40 mg/dL Total Bilirubin 1.1 H 0.2-1.0 mg/dL Aspartate Amino Transf (AST/SGOT) 29 10-37 U/L Alanine Aminotransferase (ALT/SGPT) 26 12-78 U/L Alkaline Phosphatase 233 H 50-136 U/L Total Protein 6.2 6.0-8.3 g/dL Albumin 2.6 L 3.5-5.0 g/dL Bedside Glucose Comment Notified Nurse Current Medications Medications (Trade) Dose Ordered Sig/Roderick Route PRN Reason Start Time Stop Time Status Last Admin Dose Admin Acetaminophen (TYLenol 325MG TAB) 650 mg Q6H PRN PO MILD PAIN (1-3) 07/04/24 01:00 08/03/24 00:59 07/04/24 00:58 650 MG Albuterol Sulfate (Proventil 0.083% 2.5mg/3ml) 10 mg ONCE STAT IH 06/17/24 04:05 06/17/24 04:12 DC 06/17/24 04:31 10 MG Amiodarone HCl 360 mg/Dextrose 200 ml @ 0 mls/hr PROTOCOL IV 06/24/24 14:30 06/25/24 09:16 DC 06/24/24 15:51 33.33 MLS/HR Amiodarone HCl 540 mg/Dextrose 300 ml @ 0 mls/hr PROTOCOL IV 06/24/24 21:00 07/24/24 20:59 06/24/24 20:42 16.7 MLS/HR Amlodipine Besylate (NorvASC 5MG TAB) 5 mg BID PO 06/22/24 09:00 07/22/24 08:59 07/05/24 09:45 5 MG Apixaban (EliquIS) 5 mg BID PO 06/24/24 14:30 06/30/24 19:54 DC 06/30/24 11:10 5 MG Calcium Carbonate (Tums 500 Mg Chew Tab) 500 tab ONCE PO 06/26/24 15:30 07/26/24 15:29 Cancel Calcium Carbonate (Tums 500 Mg Chew Tab) 500 tab ONCE PO 07/04/24 13:00 07/05/24 13:10 DC Calcium Carbonate (Tums 500 Mg Chew Tab) 500 tab Q6H6 PRN PO GI UPSET/UPSET STOMACH 06/28/24 12:00 07/28/24 11:59 07/04/24 13:08 500 TAB Calcium Gluconate (Calcium Gluc 1gm Vial) 1 gm AD STAT IV 06/17/24 04:05 06/17/24 04:12 DC 06/17/24 04:21 1 GM Cefepime HCl (MAXipime 1 GM vial) 0.25 gm Q24H IVPB 06/17/24 04:00 06/18/24 04:06 DC 06/17/24 04:58 0.25 GM Cefepime HCl (MAXipime 1 GM vial) 1 gm Q24H IVPB 06/20/24 05:00 06/22/24 16:09 DC 06/22/24 03:12 1 GM Cefepime HCl 0.25 gm/Sodium Chloride 50 ml @ 100 mls/hr Q24H IVPB 06/18/24 04:30 06/19/24 10:58 DC 06/19/24 05:26 100 MLS/HR Dextrose (D50w) 50 ml AD PRN IV HYPOGLYCEMIA PROTOCOL 06/17/24 01:00 06/17/24 01:01 DC Dextrose (D50w) 50 ml AD PRN IV HYPOGLYCEMIA PROTOCOL 06/17/24 01:00 07/17/24 00:59 Dextrose (D50w) 50 ml ONCE STAT IV 06/17/24 04:05 06/17/24 04:12 DC 06/17/24 04:21 50 ML Epoetin Rylan-epbx (Retacrit) 10,000 unit [id number] SQ 06/24/24 14:00 06/24/24 13:53 DC Epoetin Rylan-epbx (Retacrit) 10,000 unit QMOWEFR@1600 SQ 06/29/24 15:00 07/29/24 14:59 07/03/24 16:14 10,000 UNIT Epoetin Rylan-epbx (Retacrit) 10,000 unit QWEEK SQ 06/24/24 14:00 06/29/24 14:23 DC 06/24/24 14:37 10,000 UNIT Famotidine (Pepcid 20mg Vial) 20 mg Q48H IV 06/17/24 01:00 07/17/24 00:59 07/05/24 00:01 20 MG Folic Acid (FOLic ACID 1 MG TABLET) 1 mg DAILY PO 06/25/24 09:00 07/25/24 08:59 07/05/24 09:46 1 MG Furosemide (LASix 40MG VIAL) 40 mg Q12H IV 06/28/24 21:00 07/02/24 10:34 DC 07/02/24 09:05 40 MG Furosemide (LASix 40MG VIAL) 40 mg Q8H IV 06/19/24 18:30 06/20/24 18:31 DC 06/20/24 18:54 40 MG Glucagon (Glucagon 1mg Kit) 1 mg AD PRN IM HYPOGLYCEMIA PROTOCOL 06/17/24 01:00 06/17/24 01:01 DC Glucagon (Glucagon 1mg Kit) 1 mg AD PRN IM HYPOGLYCEMIA PROTOCOL 06/17/24 01:00 07/17/24 00:59 Heparin Sodium (Porcine) (HEParin 5,000 UNIT VIAL) 10,000 unit AD IRRIG 07/01/24 14:00 07/31/24 13:59 07/04/24 11:10 10,000 UNIT Hydralazine HCl ([id number] TAB) 25 mg TID PO 06/22/24 09:00 07/22/24 08:59 07/05/24 09:45 25 MG Hydrocortisone Sodium Succinate (Solu-corTEF 100MG) 50 mg ONCE@1930 IV 06/22/24 19:30 06/22/24 22:30 DC 06/22/24 19:59 50 MG Hydrocortisone Sodium Succinate (Solu-corTEF 100MG) 50 mg Q12H IV 07/03/24 21:00 07/23/24 05:59 07/05/24 09:43 50 MG Hydrocortisone Sodium Succinate (Solu-corTEF 100MG) 50 mg Q8H IV 06/18/24 11:30 06/22/24 15:46 DC 06/22/24 03:12 50 MG Hydrocortisone Sodium Succinate (Solu-corTEF 100MG) 50 mg Q8H6 IV 06/23/24 06:00 07/03/24 20:49 DC 07/03/24 14:12 50 MG Hydromorphone HCl (DiLAUDid 0.5MG INJ) 0.5 mg Q4H PRN IVP SEVERE PAIN (7-10) 06/20/24 13:00 06/25/24 12:59 DC 06/21/24 23:50 0.5 MG Insulin Human Regular (humuLIN R 100 UNIT/ML 3ML) 10 unit ONCE STAT IV 06/17/24 04:05 06/17/24 04:12 DC 06/17/24 04:28 10 UNIT Insulin Human Regular (humuLIN R 100 UNIT/ML 3ML) INSULIN SLIDING SCAL... ACHS SQ 06/17/24 07:30 07/17/24 07:29 07/04/24 20:44 2 UNIT Lactated Ringer's 1,000 ml @ 130 mls/hr Q7H42M IV 06/21/24 09:30 06/28/24 09:51 DC 06/28/24 09:03 130 MLS/HR Lactobacillus Rhamnosus ([facility]) 1 each BID PO 06/28/24 10:00 07/28/24 09:59 07/05/24 09:45 1 EACH Leptospermum Honey ([facility]) 1 appl DAILY TP 06/19/24 09:00 07/19/24 08:59 07/05/24 09:47 1 APPL Magnesium Sulfate 50 ml @ 0 mls/hr PROTOCOL PRN IV MAGNESIUM PROTOCOL 06/23/24 11:30 07/23/24 11:29 07/05/24 05:23 25 MLS/HR Metoprolol Tartrate (loprESSOR) 25 mg BID PO 06/24/24 14:30 07/24/24 14:29 07/05/24 09:45 25 MG Metronidazole/ Sodium Chloride (flaGYL) 500 mg Q8H IV 06/17/24 05:00 06/27/24 04:59 DC 06/26/24 21:48 500 MG Micafungin Sodium 100 ml @ 100 mls/hr Q24H IV 06/18/24 00:00 07/18/24 00:00 07/05/24 00:01 100 MLS/HR Morphine Sulfate (morPHINE 2MG SYG) 2 mg Q4H PRN IVP SEVERE PAIN (7-10) 06/29/24 00:30 07/01/24 16:10 DC 07/01/24 01:35 2 MG Norepinephrine 250 ml @ 0 mls/hr PROTOCOL IV 06/16/24 22:00 06/22/24 07:20 DC 06/17/24 05:33 24.5 MLS/HR Ondansetron HCl (zoFRAN 4MG INJ) 4 mg Q6H PRN IVP NAUSEA/VOMITING 06/23/24 20:30 07/23/24 20:29 07/02/24 16:33 4 MG Pharmacy Profile Note (Lace Assessment) 1 each AD MISC 06/19/24 15:30 06/20/24 12:49 DC Pharmacy Profile Note (Pharmacy Communication) 1 each ONCE MISC 06/17/24 23:00 06/19/24 07:13 DC 06/17/24 23:31 1 EACH Pharmacy Profile Note (Pharmacy Communication) 1 each ONCE MISC 06/22/24 16:30 06/23/24 07:22 DC Pharmacy Profile Note (Pharmacy Communication) 1 each ONCE MISC 06/30/24 12:30 06/30/24 12:08 DC Pharmacy Profile Note (Pharmacy Communication) 1 each ONCE MISC 06/30/24 14:30 06/30/24 14:16 DC Phenylephrine HCl 100 mg/Sodium Chloride 250 ml @ 0 mls/hr AD PRN IV TITRATE 06/17/24 10:30 06/22/24 07:20 DC 06/18/24 05:48 27 MLS/HR Piperacillin Sod/ Tazobactam Sod (Zosyn 3.375gm+NS 50ml) 3.375 gm Q12H IV 06/16/24 21:30 06/17/24 01:03 DC 06/16/24 21:42 3.375 GM Piperacillin Sod/ Tazobactam Sod (Zosyn 3.375gm+NS 50ml) 3.375 gm Q12H IVPB 06/17/24 01:00 06/17/24 04:00 DC 06/17/24 02:54 3.375 GM Potassium Chloride 100 ml @ 100 mls/hr AD PRN IV POTASSIUM PROTOCOL 06/21/24 08:00 07/21/24 07:59 07/01/24 05:21 100 MLS/HR Potassium Chloride 100 ml @ 100 mls/hr AD PRN IV POTASSIUM PROTOCOL 06/23/24 11:30 07/23/24 11:29 Potassium Chloride (K-Dur/Klor-Con 20meq) 20 meq AD PRN PO POTASSIUM PROTOCOL 06/23/24 11:30 07/23/24 11:29 07/05/24 05:23 20 MEQ Potassium Chloride (K-Dur/Klor-Con 20meq) 40 meq BID PO 06/22/24 09:00 06/22/24 21:01 DC 06/22/24 19:54 40 MEQ Potassium Chloride (K-Dur/Klor-Con 20meq) 40 meq BID PO 06/25/24 09:00 06/28/24 09:51 DC 06/27/24 09:23 40 MEQ Potassium Chloride (KCl 10% Elixir 20meq/15ml) 20 meq AD PRN PO POTASSIUM PROTOCOL 06/23/24 11:30 07/23/24 11:29 Sodium Bicarbonate / Dextrose 1,000 ml @ 0 mls/hr Q0M IVP 06/17/24 05:00 06/17/24 04:58 DC Sodium Bicarbonate 150 meq/Dextrose 1,150 ml @ 50 mls/hr Q23H IVP 06/18/24 08:00 06/19/24 12:24 DC 06/18/24 20:23 100 MLS/HR Sodium Bicarbonate 150 meq/Dextrose 1,150 ml @ 100 mls/hr [id number] IVP 06/17/24 05:00 06/18/24 04:44 DC 06/17/24 21:00 100 MLS/HR Sodium Polystyrene Sulfonate (kayEXALate 15 GM/60 ML) 15 gm Q2H PO 06/16/24 21:30 06/16/24 23:31 DC 06/16/24 22:21 15 GM Sodium Chloride 1,000 ml @ 0 mls/hr ONCE IV 07/01/24 14:00 07/31/24 13:59 07/04/24 11:09 100 MLS/HR Sodium Chloride 1,000 ml @ 150 mls/hr Q6H40M IV 06/16/24 23:00 06/17/24 09:10 DC 06/17/24 05:15 150 MLS/HR Sodium Chloride (NS 50ml) 50 ml AD IV 06/17/24 01:00 06/17/24 01:05 DC Sucralfate (Carafate) 1 gm BID PO 06/28/24 12:30 06/28/24 22:30 DC 06/28/24 20:56 1 GM Sucralfate (Carafate) 1 gm BID PO 07/03/24 09:00 08/02/24 08:59 07/05/24 09:45 1 GM Thiamine HCl (Vitamin B-1) 100 mg DAILY IVP 06/17/24 09:00 07/17/24 08:59 07/05/24 09:46 100 MG Tigecycline 100 mg/Sodium Chloride 100 ml @ 200 mls/hr ONCE IV 06/22/24 16:30 06/23/24 07:21 DC 06/22/24 18:51 200 MLS/HR Tigecycline 50 mg/ Sodium Chloride 100 ml @ 200 mls/hr BID@0600,1800 IV 06/23/24 06:00 06/30/24 05:59 DC 06/29/24 17:57 200 MLS/HR Tigecycline 50 mg/ Sodium Chloride 100 ml @ 200 mls/hr BID@0600,1800 IV 06/30/24 18:00 06/30/24 19:53 DC 06/30/24 19:50 200 MLS/HR Tigecycline 50 mg/ Sodium Chloride 100 ml @ 200 mls/hr BID@0800,2000 IV 07/01/24 08:00 07/10/24 07:59 07/05/24 09:43 200 MLS/HR Vancomycin HCl (Vancomycin 750mg) 750 mg Q96H IVPB 06/20/24 22:00 06/17/24 14:00 DC Vancomycin HCl (Vancomycin Protocol) 1 each AD IV 06/17/24 01:30 06/17/24 14:01 DC Vitamin B Complex/ Vit C/Folic Acid (Nephrovite Tablet) 1 cap DAILY PO 06/24/24 09:00 07/24/24 08:59 07/05/24 09:45 1 CAP Wound Care/ Dressing Products (Venelex Ointment) 1 APPL BID TP 06/28/24 21:00 07/28/24 20:59 07/05/24 09:46 1 GM DIAGNOSTICS / RADIOLOGY: [ ] ASSESSMENT: Severe metabolic acidosis, resolved POA Septic shock requiring vasopressor, resolved POA Paroxysmal afib with RVR, rate controlled Fungemia 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, POA Acute on chronic renal failure, progressing to ESRD POA New onset ESRD on dialysis Hyperkalemia, resolved Hypokalemia Chronic anemia POA Acute thrombocytopenia POA Failure to thrive POA Acute encephalopathy, improving DM2 last A1c 7.3 Dyslipidemia Peripheral artery disease Osteomyelitis with recent amputation to both feet POA Hypertension PLAN: Continue PCCU Continue monitoring and evaluation advisor Continue metoprolol 25mg BID Continue apixaban 5mg BID Continue dialysis per nephrology CV surgery consulted for AV fistula placement Continue the patient on broad-spectrum IV antibiotics, continue micafungin. Nephrology consulted, appreciate recommendations Stop LR @ 130 cc/hr Start furosemide 40mg IV BID Continue clear liquid diet, will advance tomorrow GI consulted, appreciate recommendations Hematology consulted, appreciate recommendations Anemia workup. Transfuse as needed. Hematology consultation requested per Follow critical care input and recommendation Disposition: Pending dialysis, AV fistula creation, placement AL CARDONA MD July 05, 2024 14:37
--- NOTE | 2024-07-05 16:22 | PN ---
[facility] PROGRESS NOTE Date Patient Seen: July 05, 2024 Time of Visit: 16:21 Supervising Physician: Dr. Patel Supervising Physician: Dr. Archer Primary Care Physician: [None-recently relocated from [place]] Outpatient Specialists: [ ] Inpatient Consults: BIS team, nephro: Dr. Dowd, cardio: Dr. Bae] PROBLEM LIST: NETO on CKD POA resolving Uremia-POA Enterocolitis POA Cholelithiasis Mild Distal colonic Diverticulosis POA Severe hyperkalemia-POA Resolved Thrombocytopenia-POA. resolved Severe lactic acidosis-POA, resolved NSTEM Type II from septic shock on arrival INTERVAL HISTORY: No major over night events. Pt is awake alert and oriented x 3 . no further episodes of nausea or vomiting, BNP 3180, He contiues on lasix 40mg IV q 12hrs per nephrology recs. Urine output 1.4 L. Ches XR with bilateral pulmonary vascular congestion. He is pending SNF per case management. currently on 2L. 07/01/2024: At the time of my evaluation, the patient was lying in. The staff nurse reports acute events overnight. The patient remains on cannula and on the monitor he is hemodynamically stable. Laboratory data was notable for a s interval increase of WBC to 11.7, sodium of 134, potassium of 3.0, chloride 94, CO2 24, BUN of 138, creatinine of 6.2 and a GFR of 9. odium count of 135, pot assium of 3.4, chloride of 95, CO2 of 24, BUN of 137, creatinine of 6.4. No new imaging for review. No other complaint. 07/02/2024: At the time of my evaluation, the patient is lying in bed. He warts feeling better today. The patient underwent hemodialysis today 2nd consecutive hemodialysis. On the monitor, the patient is hemodynamically stable and is currently on room air. Laboratory data today showed resolved leukocytosis. H and H and platelet count is stable. Chemistry panel did show a sodium count of 141, a potassium of 2.8, chloride of 99, BUN of 104, creatinine of 5.1 and a GFR of 11. Total calcium of 7.1, magnesium of 1.7. Total protein of 5.5 and a albumin of 2.2. Chest imaging today, showed concern for small pneumothorax per the radiologist's report. The patient continues on antibiotic therapy with Tygacil and micafungin. No complaint. 07/03/2024: At the evaluation, the patient was lying in bed. The staff nurse reports no acute events overnight. Vital signs today are hemodynamically stable and the patient is currently on room air. Laboratory data obtained today showed an interval increase of WBCs to 18.3. H and H and platelet count remained stable. Chemistry panel today was notable for a potassium of 3.0, chloride 97, BUN of 74, creatinine of 3.9 and a GFR of 16. Total calcium of 7.5 and a phosphorus of 5.5. No new imaging for review today. Patient did not undergo dialysis today per the staff nurse he is scheduled for another hemodialysis tomorrow. Currently, the patient remains on antibiotic coverage with micafungin and Tygacil. No other complaint. 07/04/2024: At the time of my evaluation, the patient lying in bed. He was undergoing hemodialysis. Per the hemodialysis nurse, the patient had a interval hypotensive events which later corrected. The patient remains on room air and no respiratory events is noted. Laboratory data showed improved WBC count now to 11.7 H&H and platelet count are stable. Chemistry panel today was notable for a potassium of 3.4, BUN 41, creatinine of 2.2 and a GFR of 30. Total bilirubin of 1.1 with of transaminitis and alkaline phosphatase of 233. No new imaging for review today no other concern. 07/05/2024: At the time of my evaluation, the patient is lying in bed. He reports feeling much better today. No new complaint. The patient remains on room air and is otherwise hemodynamically stable. Laboratory data today showed a interval increase of WBCs to 14.7. H and H and platelet count is otherwise stable. Chemistry panel showed a interval drop of potassium to 3.1 and a magnesium to 1.7. No new imaging for review today. The patient's last hemodialysis session was yesterday. He continues on micafungin and tigecycline. No other complaint. REVIEW OF SYSTEMS: A 12 point system review was carried out, pertinent positives of documented above otherwise negative PHYSICAL EXAM: GENERAL: Awake, Alert. Generally weak HEENT: Normocephalic, atraumatic, dry mucosa NECK: Supple, no JVD, trachea midline LUNGS: Clear breath sounds bilaterally. No wheezes HEART: Regular rate and rhythm. Normal S1 and S2, positive murmurs , tachycardic ABD: Abdomen soft, nontender. Bowel sounds present EXT: No clubbing, cyanosis, or edema, bilateral feet wound with toe amputations with dressing CDI NEURO: Awake alert and oriented x 3 Vital Signs (last 8hr) Date Time Temp Pulse Resp B/P (MAP) Pulse Ox O2 Delivery O2 Flow Rate FiO2 07/05/24 12:00 97.5 65 19 127/62 97 Room Air 07/05/24 09:30 98.2 65 18 131/70 99 Room Air 0.0 LABS: Hematology Labs: Test 07/05/24 03:08 Range/Units White Blood Count 14.7 #H 4.8-10.8 K/uL Red Blood Count 3.58 L 4.50-6.20 MIL/uL Hemoglobin 10.9 L 14.0-18.0 g/dL Hematocrit 30.8 L 42-54 % Mean Corpuscular Volume 86.0 79-99 fL Mean Corpuscular Hemoglobin 30.4 27.0-33.0 pg Mean Corpuscular Hemoglobin Concent 35.4 32.0-36.0 g/dL Red Cell Distribution Width 16.3 H 11.0-15.5 % Platelet Count 193 130-400 K/uL Mean Platelet Volume 11.2 H 7.5-10.5 fL Immature Granulocyte % (Auto) 0.7 0-1 % Neutrophils (%) (Auto) 88.3 H 40.0-77.0 % Lymphocytes (%) (Auto) 3.9 L 21.0-51.0 % Monocytes (%) (Auto) 6.9 3.0-13.0 % Eosinophils (%) (Auto) 0.1 0.0-8.0 % Basophils (%) (Auto) 0.1 0.0-5.0 % Neutrophils # (Auto) 13.0 H 1.8-7.7 K/uL Lymphocytes # (Auto) 0.6 L 1.0-4.8 K/uL Monocytes # (Auto) 1.0 0.1-1.0 K/uL Eosinophils # (Auto) 0.01 0.00-0.70 K/uL Basophils # (Auto) 0.01 0.00-0.20 K/uL Absolute Immature Granulocyte (auto 0.10 0-1 K/uL Nucleated Red Blood Cells 0.0 0.0-0.19 % Chemistry Labs: Test 07/05/24 11:31 07/05/24 03:08 07/04/24 12:18 Range/Units Whole Blood Glucose 100 70-110 MG/DL Sodium Level 136 136-145 mmol/L Potassium Level 3.1 L 3.5-5.1 mmol/L Chloride Level 99 L 101-111 mmol/L Carbon Dioxide Level 31 21-32 mmol/L Blood Urea Nitrogen 60 H 7-18 mg/dL Creatinine 3.1 H 0.5-1.3 mg/dL Glomerular Filtration Rate Calc 21 >90 mL/min Random Glucose 77 # 70-105 mg/dL Total Calcium 7.4 L 8.5-10.1 mg/dL Phosphorus Level 3.9 2.5-4.9 mg/dL Magnesium Level 1.70 L 1.80-2.40 mg/dL Total Bilirubin 1.1 H 0.2-1.0 mg/dL Aspartate Amino Transf (AST/SGOT) 29 10-37 U/L Alanine Aminotransferase (ALT/SGPT) 26 12-78 U/L Alkaline Phosphatase 233 H 50-136 U/L Total Protein 6.2 6.0-8.3 g/dL Albumin 2.6 L 3.5-5.0 g/dL DIAGNOSTICS / RADIOLOGY RESULTS: [ ] PLAN Disposition as per primary Pending SNF continue on supplemental oxygen aspiration precautions nutritional support 07/01/2024: For now, going to continue current management for the patient. He is going to continue on oxygen supplementation as ordered. Nephrology discussed with the patient regarding the need for renal replacement therapy to which the patient has agreed and today he underwent a right IJ tunneled hemodialysis catheter placement. Plans are to start hemodialysis later today. We will continue antibiotic/antifungal therapy as ordered. We will follow the recommendation of the treating specialist. We will monitor the patient's progress and response to management. Further orders per attending MD and hospital course. 07/02/2024: For now, we will continue current management for the patient. We will continue antibiotic therapy as ordered. Per the dry wall finisher, we will hold dialysis tomorrow. I am going to repeat a potassium and magnesium level now to ensure adequate correction. If needs be, we will continue to replace electrolytes as necessary. We will follow the recommendation of the treating specialist. We will continue to provide general supportive care, GI and DVT prophylaxis. Further orders per attending MD and hospital course. 07/03/2024: For now, going to continue current management for the patient. We are going to continue antibiotic therapy as ordered and follow the recommendation of the Infectious Disease specialist. Patient will resume his hemodialysis session tomorrow. Patient has been receiving Solu-Cortef Q 8 hours deescalate hours and we will attempt to discontinue. We will repeat surveillance labs in the morning. We will monitor the patient's progress and response to management we will continue to provide general supportive care, GI and DVT prophylaxis. Further orders per attending MD and hospital course. 07/04/2024: For now, we are going to continue current management for the patient. We are going to follow recommendation of the treating specialist. The patient we will continue hemodialysis as scheduled and we will await plans for long-term hemodialysis access. Patient will continue on antibiotic therapy as ordered. I discussed the findings and plan for further management with the patient. We will monitor the patient's progress and response to management. We will continue to provide general supportive care, GI and DVT prophylaxis. Further orders per attending MD and hospital course. 07/05/2024: For now, going to continue current management for the patient. He is going to continue antibiotic therapy as ordered. We will follow the recommendation of the Infectious Disease specialist. Also, the patient is going to continue hemodialysis as guided by the dry wall finisher through the [facility]. He is currently awaiting a fistula creation. I discussed the findings and plan for further management with the patient. We will monitor the patient's progress and response to management. We will continue to provide general supportive care, GI and DVT prophylaxis. Further orders per attending MD and hospital course. Di spo per primary. NEURO: Minimize central acting medications as possible. Maintain fall precautions, adequate lighting during the day PULMONARY: Supplemental 02 as needed. Maintain aspiration precautions at all times CARDIOVASCULAR: Follow hemodynamics. Vital signs per facility protocol GI & NUTRITION: Continue with nutritional support. Continue stool softeners and laxatives as needed. KIDNEYS & ELECTROLYTES: Strict monitoring of intake, output and overall fluid balance. Avoid nephrotoxic medications to the extent possible. Medications to be dosed according to renal function. Monitor electrolytes and replace as needed ENDOCRINE: Maintain blood glucose between 100-180 at all times. Hypoglycemia protocol in place INFECTIOUS DISEASE: Trend temperature, WBC and procalcitonin level Follow cultures, deescalate antibiotics as soon as possible. Panculture if new onset fever ONCOLOGY/HEMATOLOGY/COAGULATION: Monitor for s/s of bleeding Monitor hemoglobin, coagulation studies as needed SKIN: Pressure ulcer prevention per facility protocol Specialty mattress ORTHO/REHAB: Continue PT/OT Prophylaxis: Continue GI and DVT prophylaxis Code Status: Full Resuscitation Disposition: PCCU Patient was seen and case was discussed with roundjose alberto CALDWELL. Plan of care was discussed and agreed upon. LALI BOLDEN TURBINE ATTENDANT July 05, 2024 16:22
--- NOTE | 2024-07-06 01:00 | NUR ---
patient refused vital signs check and turn
[2024-07-06 03:40] LABS: HEMATOCRIT 30.7 % (42-54); LYMPHOCYTES # (AUTO) 0.4 K/uL (1.0-4.8); LYMPHOCYTES % (AUTO) 3.1 % (21.0-51.0); MEAN CORPUSCULAR HEMOGLOBIN 30.1 pg (27.0-33.0); MEAN CORPUSCULAR HGB CONC 34.5 g/dL (32.0-36.0); MEAN CORPUSCULAR VOLUME 87.2 fL (79-99); MONOCYTES # (AUTO) 0.5 K/uL (0.1-1.0); MONOCYTES % (AUTO) 4.2 % (3.0-13.0); NEUTROPHILS # (AUTO) 10.9 K/uL (1.8-7.7); NEUTROPHILS % (AUTO) 91.9 % (40.0-77.0); PLATELET COUNT (AUTO) 182 K/uL (130-400); RED BLOOD CELL COUNT(AUTO) 3.52 MIL/uL (4.50-6.20); RED CELL DISTRIBUTION WIDTH 16.7 % (11.0-15.5); WHITE BLOOD COUNT (AUTO) 11.8 K/uL (4.8-10.8)
[2024-07-06 03:56] LABS: CREATININE 3.3 mg/dL (0.5-1.3)
--- NOTE | 2024-07-06 06:00 | NUR ---
patient refused vitals sign check and turning educated on importance of allowing to be cleaned and turned, patient continues to refuse, states "later"
[2024-07-06] MEDS: PoTASSium chloRIDE 20MEQ/100ML 100 ML IV PRN (06:38)
[2024-07-06 07:30] VITALS: O2SAT 99
[2024-07-06 07:55] VITALS: BP 103/64; PULSE 63; RESP 18; TEMP 98
--- NOTE | 2024-07-06 08:18 | PN ---
GASTROENTEROLOGY PROGRESS NOTE Date of Visit: July 06, 2024 Time of Visit: 08:18 Events / Notes: No acute events overnight. Patient had EGD revealing mucosal changes suspicious for gastritis. Denies fever, chills, abdominal pain, N/V, hematemesis, bloating, constipation, diarrhea, melena or hematochezia. Review of Systems: CONSTITUTIONAL: No malaise or change in sensation of wellbeing. ENMT: No rhinorrhea, otorrhea, sinus pain, ear ache. CARDIOVASCULAR: No angina, palpitations, orthopnea or paroxysmal dyspnea. RESPIRATORY: No SOB. GASTROINTESTINAL: No abdominal pain, nausea, vomiting, diarrhea, hematemesis, melena or change in the patient's habitual bowel movements consistency/number. GENITOURINARY: No dysuria, hematuria or change in bladder continence. MUSCULOSKELETAL: No new muscle pain or decrease in muscular strength. No new joint swelling, redness or tenderness. SKIN: No new rash. Physical Exam: GEN: Awake, alert, oriented in person, time and place, and in no acute distress. HEENT: No sinus tenderness. Tympanic membranes were not examined. No rhinorrhea. Oral pharyngeal mucosa is pink, moist and within normal limits. Neck is supple with no cervical lymphadenopathy, thyromegaly or JVD. CHEST: Inspection, palpation and percussion of the chest were unremarkable. Lung auscultation revealed normal breath sounds bilaterally. CARDIAC: PMI is within normal limits. Heart sounds are regular. Normal S1, S2. No gallop or murmur. ABD: Soft, non-tender and not distended. No peritoneal signs on palpation. No organomegaly. Normal bowel sounds. EXT: No cyanosis or clubbing. No edema. SKIN: Intact. No rashes. JOINTS: No evidence of synovitis or acute arthritis. NEURO: Alert and oriented to name, place and person. Cranial nerve examination is unremarkable. No focal motor deficits. Normal speech. Gait is normal. Strength is normal. Vital Signs (last 8hr) Date Time Temp Pulse Resp B/P (MAP) Pulse Ox O2 Delivery O2 Flow Rate FiO2 07/06/24 07:55 98.1 63 18 103/64 98 Room Air Laboratory: [ ] Laboratory: Test 07/06/24 03:08 07/05/24 16:22 07/05/24 03:08 07/04/24 12:18 Range/Units White Blood Count 11.8 H 4.8-10.8 K/uL Red Blood Count 3.52 L 4.50-6.20 MIL/uL Hemoglobin 10.6 L 14.0-18.0 g/dL Hematocrit 30.7 L 42-54 % Mean Corpuscular Volume 87.2 79-99 fL Mean Corpuscular Hemoglobin 30.1 27.0-33.0 pg Mean Corpuscular Hemoglobin Concent 34.5 32.0-36.0 g/dL Red Cell Distribution Width 16.7 H 11.0-15.5 % Platelet Count 182 130-400 K/uL Mean Platelet Volume 11.4 H 7.5-10.5 fL Immature Granulocyte % (Auto) 0.8 0-1 % Neutrophils (%) (Auto) 91.9 H 40.0-77.0 % Lymphocytes (%) (Auto) 3.1 L 21.0-51.0 % Monocytes (%) (Auto) 4.2 3.0-13.0 % Eosinophils (%) (Auto) 0.0 0.0-8.0 % Basophils (%) (Auto) 0.0 0.0-5.0 % Neutrophils # (Auto) 10.9 H 1.8-7.7 K/uL Lymphocytes # (Auto) 0.4 L 1.0-4.8 K/uL Monocytes # (Auto) 0.5 0.1-1.0 K/uL Eosinophils # (Auto) 0.00 0.00-0.70 K/uL Basophils # (Auto) 0.00 0.00-0.20 K/uL Absolute Immature Granulocyte (auto 0.10 0-1 K/uL Nucleated Red Blood Cells 0.0 0.0-0.19 % Sodium Level 134 L 136-145 mmol/L Potassium Level 3.0 *L 3.5-5.1 mmol/L Chloride Level 97 L 101-111 mmol/L Carbon Dioxide Level 26 21-32 mmol/L Blood Urea Nitrogen 67 H 7-18 mg/dL Creatinine 3.3 H 0.5-1.3 mg/dL Glomerular Filtration Rate Calc 19 >90 mL/min Random Glucose 185 #H 70-105 mg/dL Total Calcium 7.4 L 8.5-10.1 mg/dL Whole Blood Glucose 129 H 70-110 MG/DL Phosphorus Level 3.9 2.5-4.9 mg/dL Magnesium Level 1.70 L 1.80-2.40 mg/dL Total Bilirubin 1.1 H 0.2-1.0 mg/dL Aspartate Amino Transf (AST/SGOT) 29 10-37 U/L Alanine Aminotransferase (ALT/SGPT) 26 12-78 U/L Alkaline Phosphatase 233 H 50-136 U/L Total Protein 6.2 6.0-8.3 g/dL Albumin 2.6 L 3.5-5.0 g/dL Current Medications Medications (Trade) Dose Ordered Sig/Roderick Route PRN Reason Start Time Stop Time Status Last Admin Dose Admin Acetaminophen (TYLenol 325MG TAB) 650 mg Q6H PRN PO MILD PAIN (1-3) 07/04/24 01:00 08/03/24 00:59 07/05/24 22:33 650 MG Albuterol Sulfate (Proventil 0.083% 2.5mg/3ml) 10 mg ONCE STAT IH 06/17/24 04:05 06/17/24 04:12 DC 06/17/24 04:31 10 MG Amiodarone HCl 360 mg/Dextrose 200 ml @ 0 mls/hr PROTOCOL IV 06/24/24 14:30 06/25/24 09:16 DC 06/24/24 15:51 33.33 MLS/HR Amiodarone HCl 540 mg/Dextrose 300 ml @ 0 mls/hr PROTOCOL IV 06/24/24 21:00 07/24/24 20:59 06/24/24 20:42 16.7 MLS/HR Amlodipine Besylate (NorvASC 5MG TAB) 5 mg BID PO 06/22/24 09:00 07/22/24 08:59 07/05/24 22:08 5 MG Apixaban (EliquIS) 5 mg BID PO 06/24/24 14:30 06/30/24 19:54 DC 06/30/24 11:10 5 MG Calcium Carbonate (Tums 500 Mg Chew Tab) 500 tab ONCE PO 06/26/24 15:30 07/26/24 15:29 Cancel Calcium Carbonate (Tums 500 Mg Chew Tab) 500 tab ONCE PO 07/04/24 13:00 07/05/24 13:10 DC Calcium Carbonate (Tums 500 Mg Chew Tab) 500 tab Q6H6 PRN PO GI UPSET/UPSET STOMACH 06/28/24 12:00 07/28/24 11:59 07/05/24 22:33 1 TAB Calcium Gluconate (Calcium Gluc 1gm Vial) 1 gm AD STAT IV 06/17/24 04:05 06/17/24 04:12 DC 06/17/24 04:21 1 GM Cefepime HCl (MAXipime 1 GM vial) 0.25 gm Q24H IVPB 06/17/24 04:00 06/18/24 04:06 DC 06/17/24 04:58 0.25 GM Cefepime HCl (MAXipime 1 GM vial) 1 gm Q24H IVPB 06/20/24 05:00 06/22/24 16:09 DC 06/22/24 03:12 1 GM Cefepime HCl 0.25 gm/Sodium Chloride 50 ml @ 100 mls/hr Q24H IVPB 06/18/24 04:30 06/19/24 10:58 DC 06/19/24 05:26 100 MLS/HR Dextrose (D50w) 50 ml AD PRN IV HYPOGLYCEMIA PROTOCOL 06/17/24 01:00 06/17/24 01:01 DC Dextrose (D50w) 50 ml AD PRN IV HYPOGLYCEMIA PROTOCOL 06/17/24 01:00 07/17/24 00:59 Dextrose (D50w) 50 ml ONCE STAT IV 06/17/24 04:05 06/17/24 04:12 DC 06/17/24 04:21 50 ML Epoetin Rylan-epbx (Retacrit) 10,000 unit [id number] SQ 06/24/24 14:00 06/24/24 13:53 DC Epoetin Rylan-epbx (Retacrit) 10,000 unit QMOWEFR@1600 SQ 06/29/24 15:00 07/29/24 14:59 07/03/24 16:14 10,000 UNIT Epoetin Rylan-epbx (Retacrit) 10,000 unit QWEEK SQ 06/24/24 14:00 06/29/24 14:23 DC 06/24/24 14:37 10,000 UNIT Famotidine (Pepcid 20mg Vial) 20 mg Q48H IV 06/17/24 01:00 07/17/24 00:59 07/05/24 00:01 20 MG Folic Acid (FOLic ACID 1 MG TABLET) 1 mg DAILY PO 06/25/24 09:00 07/25/24 08:59 07/05/24 09:46 1 MG Furosemide (LASix 40MG VIAL) 40 mg Q12H IV 06/28/24 21:00 07/02/24 10:34 DC 07/02/24 09:05 40 MG Furosemide (LASix 40MG VIAL) 40 mg Q8H IV 06/19/24 18:30 06/20/24 18:31 DC 06/20/24 18:54 40 MG Glucagon (Glucagon 1mg Kit) 1 mg AD PRN IM HYPOGLYCEMIA PROTOCOL 06/17/24 01:00 06/17/24 01:01 DC Glucagon (Glucagon 1mg Kit) 1 mg AD PRN IM HYPOGLYCEMIA PROTOCOL 06/17/24 01:00 07/17/24 00:59 Heparin Sodium (Porcine) (HEParin 5,000 UNIT VIAL) 10,000 unit AD IRRIG 07/01/24 14:00 07/31/24 13:59 07/04/24 11:10 10,000 UNIT Hydralazine HCl ([id number] TAB) 25 mg TID PO 06/22/24 09:00 07/22/24 08:59 07/05/24 22:34 25 MG Hydrocortisone Sodium Succinate (Solu-corTEF 100MG) 50 mg ONCE@1930 IV 06/22/24 19:30 06/22/24 22:30 DC 06/22/24 19:59 50 MG Hydrocortisone Sodium Succinate (Solu-corTEF 100MG) 50 mg Q12H IV 07/03/24 21:00 07/23/24 05:59 07/05/24 22:09 50 MG Hydrocortisone Sodium Succinate (Solu-corTEF 100MG) 50 mg Q8H IV 06/18/24 11:30 06/22/24 15:46 DC 06/22/24 03:12 50 MG Hydrocortisone Sodium Succinate (Solu-corTEF 100MG) 50 mg Q8H6 IV 06/23/24 06:00 07/03/24 20:49 DC 07/03/24 14:12 50 MG Hydromorphone HCl (DiLAUDid 0.5MG INJ) 0.5 mg Q4H PRN IVP SEVERE PAIN (7-10) 06/20/24 13:00 06/25/24 12:59 DC 06/21/24 23:50 0.5 MG Insulin Human Regular (humuLIN R 100 UNIT/ML 3ML) 10 unit ONCE STAT IV 06/17/24 04:05 06/17/24 04:12 DC 06/17/24 04:28 10 UNIT Insulin Human Regular (humuLIN R 100 UNIT/ML 3ML) INSULIN SLIDING SCAL... ACHS SQ 06/17/24 07:30 07/17/24 07:29 07/06/24 06:43 2 UNIT Lactated Ringer's 1,000 ml @ 130 mls/hr Q7H42M IV 06/21/24 09:30 06/28/24 09:51 DC 06/28/24 09:03 130 MLS/HR Lactobacillus Rhamnosus ([facility] Complete [employer]) 1 each BID PO 06/28/24 10:00 07/28/24 09:59 07/05/24 22:09 1 EACH Leptospermum Honey (InforSensewapato) 1 appl DAILY TP 06/19/24 09:00 07/19/24 08:59 07/05/24 09:47 1 APPL Magnesium Sulfate 50 ml @ 0 mls/hr PROTOCOL PRN IV MAGNESIUM PROTOCOL 06/23/24 11:30 07/23/24 11:29 07/05/24 05:23 25 MLS/HR Metoprolol Tartrate (loprESSOR) 25 mg BID PO 06/24/24 14:30 07/24/24 14:29 07/05/24 22:09 25 MG Metronidazole/ Sodium Chloride (flaGYL) 500 mg Q8H IV 06/17/24 05:00 06/27/24 04:59 DC 06/26/24 21:48 500 MG Micafungin Sodium 100 ml @ 100 mls/hr Q24H IV 06/18/24 00:00 07/18/24 00:00 07/06/24 01:58 100 MLS/HR Morphine Sulfate (morPHINE 2MG SYG) 2 mg Q4H PRN IVP SEVERE PAIN (7-10) 06/29/24 00:30 07/01/24 16:10 DC 07/01/24 01:35 2 MG Norepinephrine 250 ml @ 0 mls/hr PROTOCOL IV 06/16/24 22:00 06/22/24 07:20 DC 06/17/24 05:33 24.5 MLS/HR Ondansetron HCl (zoFRAN 4MG INJ) 4 mg Q6H PRN IVP NAUSEA/VOMITING 06/23/24 20:30 07/23/24 20:29 07/02/24 16:33 4 MG Pharmacy Profile Note (Lace Assessment) 1 each AD MISC 06/19/24 15:30 06/20/24 12:49 DC Pharmacy Profile Note (Pharmacy Communication) 1 each ONCE MISC 06/17/24 23:00 06/19/24 07:13 DC 06/17/24 23:31 1 EACH Pharmacy Profile Note (Pharmacy Communication) 1 each ONCE MISC 06/22/24 16:30 06/23/24 07:22 DC Pharmacy Profile Note (Pharmacy Communication) 1 each ONCE MISC 06/30/24 12:30 06/30/24 12:08 DC Pharmacy Profile Note (Pharmacy Communication) 1 each ONCE MISC 06/30/24 14:30 06/30/24 14:16 DC Phenylephrine HCl 100 mg/Sodium Chloride 250 ml @ 0 mls/hr AD PRN IV TITRATE 06/17/24 10:30 06/22/24 07:20 DC 06/18/24 05:48 27 MLS/HR Piperacillin Sod/ Tazobactam Sod (Zosyn 3.375gm+NS 50ml) 3.375 gm Q12H IV 06/16/24 21:30 06/17/24 01:03 DC 06/16/24 21:42 3.375 GM Piperacillin Sod/ Tazobactam Sod (Zosyn 3.375gm+NS 50ml) 3.375 gm Q12H IVPB 06/17/24 01:00 06/17/24 04:00 DC 06/17/24 02:54 3.375 GM Potassium Chloride 100 ml @ 100 mls/hr AD PRN IV POTASSIUM PROTOCOL 06/21/24 08:00 07/21/24 07:59 07/01/24 05:21 100 MLS/HR Potassium Chloride 100 ml @ 100 mls/hr AD PRN IV POTASSIUM PROTOCOL 06/23/24 11:30 07/23/24 11:29 07/06/24 06:38 100 MLS/HR Potassium Chloride (K-Dur/Klor-Con 20meq) 20 meq AD PRN PO POTASSIUM PROTOCOL 06/23/24 11:30 07/23/24 11:29 07/05/24 05:23 20 MEQ Potassium Chloride (K-Dur/Klor-Con 20meq) 40 meq BID PO 06/22/24 09:00 06/22/24 21:01 DC 06/22/24 19:54 40 MEQ Potassium Chloride (K-Dur/Klor-Con 20meq) 40 meq BID PO 06/25/24 09:00 06/28/24 09:51 DC 06/27/24 09:23 40 MEQ Potassium Chloride (KCl 10% Elixir 20meq/15ml) 20 meq AD PRN PO POTASSIUM PROTOCOL 06/23/24 11:30 07/23/24 11:29 Sodium Bicarbonate / Dextrose 1,000 ml @ 0 mls/hr Q0M IVP 06/17/24 05:00 06/17/24 04:58 DC Sodium Bicarbonate 150 meq/Dextrose 1,150 ml @ 50 mls/hr Q23H IVP 06/18/24 08:00 06/19/24 12:24 DC 06/18/24 20:23 100 MLS/HR Sodium Bicarbonate 150 meq/Dextrose 1,150 ml @ 100 mls/hr [id number] IVP 06/17/24 05:00 06/18/24 04:44 DC 06/17/24 21:00 100 MLS/HR Sodium Polystyrene Sulfonate (kayEXALate 15 GM/60 ML) 15 gm Q2H PO 06/16/24 21:30 06/16/24 23:31 DC 06/16/24 22:21 15 GM Sodium Chloride 1,000 ml @ 0 mls/hr ONCE IV 07/01/24 14:00 07/31/24 13:59 07/04/24 11:09 100 MLS/HR Sodium Chloride 1,000 ml @ 150 mls/hr Q6H40M IV 06/16/24 23:00 06/17/24 09:10 DC 06/17/24 05:15 150 MLS/HR Sodium Chloride (NS 50ml) 50 ml AD IV 06/17/24 01:00 06/17/24 01:05 DC Sucralfate (Carafate) 1 gm BID PO 06/28/24 12:30 06/28/24 22:30 DC 06/28/24 20:56 1 GM Sucralfate (Carafate) 1 gm BID PO 07/03/24 09:00 08/02/24 08:59 07/05/24 22:08 1 GM Thiamine HCl (Vitamin B-1) 100 mg DAILY IVP 06/17/24 09:00 07/17/24 08:59 07/05/24 09:46 100 MG Tigecycline 100 mg/Sodium Chloride 100 ml @ 200 mls/hr ONCE IV 06/22/24 16:30 06/23/24 07:21 DC 06/22/24 18:51 200 MLS/HR Tigecycline 50 mg/ Sodium Chloride 100 ml @ 200 mls/hr BID@0600,1800 IV 06/23/24 06:00 06/30/24 05:59 DC 06/29/24 17:57 200 MLS/HR Tigecycline 50 mg/ Sodium Chloride 100 ml @ 200 mls/hr BID@0600,1800 IV 06/30/24 18:00 06/30/24 19:53 DC 06/30/24 19:50 200 MLS/HR Tigecycline 50 mg/ Sodium Chloride 100 ml @ 200 mls/hr BID@0800,2000 IV 07/01/24 08:00 07/10/24 07:59 07/05/24 22:25 200 MLS/HR Vancomycin HCl (Vancomycin 750mg) 750 mg Q96H IVPB 06/20/24 22:00 06/17/24 14:00 DC Vancomycin HCl (Vancomycin Protocol) 1 each AD IV 06/17/24 01:30 06/17/24 14:01 DC Vitamin B Complex/ Vit C/Folic Acid (Nephrovite Tablet) 1 cap DAILY PO 06/24/24 09:00 07/24/24 08:59 07/05/24 09:45 1 CAP Wound Care/ Dressing Products (Venelex Ointment) 1 APPL BID TP 06/28/24 21:00 07/28/24 20:59 07/05/24 22:25 4 GM Diagnostics / Radiology: [COPY/PASTE HERE IF NO REPORTS PLEASE DELETE SECTION] Assessment: Gastritis Acute blood loss anemia HTN DM Plan: Patient defers Colonoscopy Continue GI prophylaxis Advance diet as tolerated Avoid NSAIDs Antireflux measures Monitor H&H and transfuse as needed Call with questions, concerns or change in clinical status Patient to follow-up at clinic post discharge Thank you for this consult ANGEL BURDEN CRUSHER FEEDER July 06, 2024 08:18
--- NOTE | 2024-07-06 09:37 | PN ---
[facility] PROGRESS NOTE Date of Service: July 06, 2024 Time of Service: 09:36 SUBJECTIVE: Patient is seen and examined at bedside, case discussed with the RN, during my visit the patient resting comfortably in bed, following simple commands, he is on blood pressure support with Levophed, getting sodium bicarbonate IV. BP 108/57, heart rate of 116, saturating 99% on 2 L nasal cannula. Hemoglobin 8.4, hematocrit 27.0, WBC 14.2, platelet count of 28. Sodium 143, potassium 5.0, bicarb of five, BUN 107, creatinine 9.7. ABG with pH of 7.8, pCO2 less than 15, bicarb of 2.3. 06/18 patient has been seen and examined at bedside, case discussed with the RN, patient remains confused, still on pressor support with Levophed and Andrew- Synephrine, patient also on sodium bicarbonate drip. No family members at bedside during my visit. Blood pressure 112/44, heart rate of 91, saturating 93%. CBC with WBC of 16.4, hemoglobin 8.2, hematocrit 23.7, platelet count of 27. Sodium 145, potassium 3.7, BUN of 102, creatinine 10.2, sodium bicarb of 12. ABG with pH of 7.33, pCO2 31, PO2 64, bicarb of 16.1. Septic workup reviewed, blood cultures no growth after 24 hours. Patient getting broad- spectrum IV antibiotics during my visit. CT of the abdomen pelvis probable mild enterocolitis with mild to moderate small and large bowel liquid content, cholelithiasis, urinary wall thickening, more than expected for empty urinary bladder. Mild distal colonic diverticulosis. 06/19 patient is seen and examined at bedside, case discussed with the RN, no acute events overnight, patient is still confused, however less compared to time of admission. Following very simple commands. He is currently off vasopressors. Replace, output since this morning 500 cc. Blood pressure 111/78, afebrile, saturating 96-98% 2 L nasal cannula. WBC trending down at 11.2, hemoglobin 7.6, hematocrit 20.9, platelet count of 14. BUN 108, creatinin e 10.2. ABG shows a pH 7.41, pCO2 37, PO2 81.5, bicarb 23.1. Blood culture showing Alicia tropicalis. Patient has been started on micafungin. Continue antibiotics. Continue critical care input and recommendation, continue Nephrology input and recommendation in terms of renal replacement therapy, continue daily weight, monitor intake and output. Follow anemia workup, stool occult blood, serial CBC transfuse 1 unit of PRBC hemoglobin less than seven, we will request Hematology consultation as well. 06/20 patient seen at bedside, no acute events overnight. He is not requiring pressors he is afebrile, hemodynamically stable saturating well on 2 L nasal cannula. Hemoglobin was 6.1 and platelets low at night, we will be transfused with packed red blood cells and platelets per critical Care, we will follow up post transfusion. Potassium decreased from 3.4 down to 3.2, creatinine stable at 10.2, we will follow up with Nephrology for recommendations. Urine output is improving, he has been started on Lasix, we will follow up. Patient continues on micafungin. Pt reticulocyte count low at 0.18 suggesting decreased production of RBC, FOBT positive as well concerning for GI Bleed. Will consult hematology and GI and follow up 06/21 patient seen at bedside, no acute events overnight. He has been afebrile, hemodynamically stable saturating well on 2 L nasal cannula. He has been NPO ho wever he has no history of volume overload, and his kidney function is decreased, we will perfuse his kidneys with some IV fluids and allow clear liquid diet. Creatinine stable at 9.9, same as yesterday, potassium decreased at 3.0, nephrology to manage potassium levels until renal function improves. Hemoglobin improved from 8.0 up to 8.7, remainder of his labs are relatively unremarkable. 06/22 Pt seen at bedside, no acute events overnight. He has been downgraded from ICU. He has been afebrile, hemodynamically stable, saturating well on room air. Hgb stable at 8.6, similar to yesterday, platelets decreased from 102 down to 82, potassium low at 2.7, will be repleted according to protocol, creatinine improved from 9.9 down to 8.5, sodium improved from 150 down to 146, remainder of his labs are relatively unremarkable. Urine output adequate, approximately 2.3L output in the last 24 hours. On physical exam, no evidence of volume overflow, will continue with IV fluids to perfuse his kidneys. Left foot sunita wing mullins-resistant organism, ID to adjust antibiotics 06/23 patient seen at bedside, no acute events overnight. He is pending EGD with GI today, we will follow up postprocedure. He has been afebrile, hemodynamically stable, mildly hypertensive with systolics in the 150s, saturating well on 3 L nasal cannula. Hemoglobin improved from 8.6 up to 9.0, platelets decreased from 82 down to 78, creatinine continues to improve from 8.5 down to 7.2 with adequate urine output. Potassium low at 3.1, we will be repl eted according to potassium protocol. Patient weak and feeble, we will likely need transitioned to nursing home facility, case management to assist with placement. He will continue daily physical therapy. 06/24 patient seen at bedside, no acute events overnight. EGD was done yesterday no evidence of bleed noted. Patient refusing colonoscopy. Hgb is uptrending from 9.0 up to 9.3 suggesting resolution of GI bleed, platelets improved from 78 up to 87, creatinine improved from 7.2 down to 6.4, potassium low at 3.4, will be repleted according to protocol. Patient will need placement for IV antibiotics 06/25 patient seen at bedside, no acute events overnight. Continues to refuse colonoscopy yesterday he went into AFib with RVR was started on IV amiodarone. He was rate controlled today, likely we will be transitioned to p.o. amiodarone. Now pending placement to continue IV antibiotic and antifungal therapy. We will follow up with case management and Cardiology. Creatinine improved from 6.4 down to 5.9, BUN still elevated at 112. Potassium low at 2.9 will be repleted according to protocol and will give an extra 80meq supplementation. 06/26 patient seen at bedside, no acute events overnight. He has been afebrile, hemodynamically stable saturating well on room air. WBC increased from 11.3 up to 13.1, hemoglobin stable at 9.7, same as yesterday, creatinine stable at 5.9, same as yesterday, BUN increased from 112 up to 117, remainder of his labs are relatively unremarkable. Proximally 1.1 L urine output in the last 24 hours. He is pending placement 06/27 Pt seen at bedside, no acute events overnight. He remains stable, vitals unremarkable. Pending placement 06/28 patient seen at bedside, no acute events overnight. His urine output has been decreasing, his BUN is up trending and his creatinine stable at 5.9. Discuss with Nephrology and we will hold the IV fluids and start a short course of Lasix to see his response. If he does not improve he may end up needing renal replacement therapy. Remainder of his vitals and labs are unremarkable. 06/29 seen at bedside, no acute events overnight. He was started on Lasix yesterday, diuresed proximally 1.4 L and is -992 mL over the last 24 hours. He still appears fluid overloaded. BUN continues to uptrend, creatinine stable at 6.0, similar to yesterday. Continue to monitor renal function, if it continues to deteriorate or urine output decreases, he may need renal replacement therapy. 06/30 patient seen at bedside, no acute events overnight. Renal function lulu nues to deteriorate, nephrology spoke with the patient about worsening renal function and the patient has agreed to transition to dialysis, will follow up with nephrology. 07/01 patient seen at bedside, no acute events overnight. He was in agreement to begin dialysis he will be taken for PermCath placement today and start his 1st session, venous mapping we will be done and CV surgery has been consulted for AV fistula occlusion. Patient's potassium low at 3.0, we will hold off on repletion due to renal dysfunction and defer to Nephrology for management of the electrolytes. Creatinine stable at 6.2, same as yesterday. WBC increased from 10.2 up to 11.7, hemoglobin decreased from 10.8 down to 9.6, remainder of his labs are relatively unremarkable. 07/02 patient seen at bedside, his dialysis catheter was placed yesterday. This morning on chest x-ray there appears to be a 20% pneumothorax, pulmonology has been updated with these findings, we will order a repeat chest x-ray at 1:00 p.m. and follow up. If there is progression of the pneumothorax he may need a chest tube. Patient has had venogram done, he is pending AV fistula creation with CV surgery. Once the CV surgery has been completed and pneumothorax resolves, patient will be good candidate to transitioned to nursing home. At bedside he is in no acute distress, has no complaints although he does seem tearful about having to be on dialysis and he is currently undergoing a dialysis session. 07/03 patient seen at bedside, no acute events overnight he continues with dialysis, tolerating well. Nephrology and CV surgery are coordinating the AV fistula procedure, we will follow up with their recommendations. He was hemodynamically stable, labs are appropriately arranged for ESRD, potassium low at 3.0 we will defer to Nephrology for repletion. Patient we will need placement once AV fistula has been completed. 07/04 patient seen at bedside, no acute events overnight he continues with dialysis, tolerating well. Nephrology and CV surgery are coordinating the AV fistula procedure, we will follow up with their recommendations. He IS hemodynamically stable, labs are appropriately arranged for ESRD, potassium improved to 3.4 we will defer to Nephrology for repletion. Patient we will need placement once AV fistula has been completed. 07/05 patient seen at bedside, no acute events overnight he continues with dialysis, tolerating well. Nephrology and CV surgery are coordinating the AV fistula procedure, we will follow up with their recommendations. He IS hemodynamically stable, labs are appropriately arranged for ESRD, potassium low at 3.1 we will defer to Nephrology for repletion. Patient will need placement once AV fistula has been completed. 07/06 patient is seen and examined at bedside, case discussed with the RN, no acute events overnight, patient already had vein mapping, he is currently on hemodialysis per Nephrology recommendation, pending AV fistula, discussed with cardiovascular today. Patient will need placement once AV fistula has been completed. REVIEW OF SYSTEMS 12 point review of systems negative unless noted in HPI PHYSICAL EXAM GENERAL APPEARANCE: The patient remains confused. Withdrawing to painful stimulation. NEUROLOGICAL: Cranial nerves II-XII grossly intact. Motor is 5/5 in bilateral upper and lower extremities proximal to distal. No sensory deficits. HEENT: Face is symmetric. Pupils are equal and reactive. Extraocular movements are intact. NECK: Supple. No JVD. No thyromegaly. No submental, submandibular, pre- /postauricular, occipital or supraclavicular lymphadenopathy. CHEST: Normal chest expansion. No Telemetry. LUNGS: Absence of any rales, rhonchi or any wheezing. CARDIOVASCULAR: Regular. S1 and S2 normal. No appreciable rubs, murmurs or gallops. ABDOMEN: Soft, nontender, and nondistended. There is no rebound, voluntary guarding, or rigidity. : Deferred. No Gallagher. EXTREMITIES: Non-edematous and not cyanotic. No clubbing. Good capillary refill. SKIN: No skin breakdown. Vital Signs (last 8hr) Date Time Temp Pulse Resp B/P (MAP) Pulse Ox O2 Delivery O2 Flow Rate FiO2 07/06/24 07:55 98.1 63 18 103/64 98 Room Air LABS: Laboratory: Test 07/06/24 03:08 07/05/24 16:22 07/05/24 03:08 07/04/24 12:18 Range/Units White Blood Count 11.8 H 4.8-10.8 K/uL Red Blood Count 3.52 L 4.50-6.20 MIL/uL Hemoglobin 10.6 L 14.0-18.0 g/dL Hematocrit 30.7 L 42-54 % Mean Corpuscular Volume 87.2 79-99 fL Mean Corpuscular Hemoglobin 30.1 27.0-33.0 pg Mean Corpuscular Hemoglobin Concent 34.5 32.0-36.0 g/dL Red Cell Distribution Width 16.7 H 11.0-15.5 % Platelet Count 182 130-400 K/uL Mean Platelet Volume 11.4 H 7.5-10.5 fL Immature Granulocyte % (Auto) 0.8 0-1 % Neutrophils (%) (Auto) 91.9 H 40.0-77.0 % Lymphocytes (%) (Auto) 3.1 L 21.0-51.0 % Monocytes (%) (Auto) 4.2 3.0-13.0 % Eosinophils (%) (Auto) 0.0 0.0-8.0 % Basophils (%) (Auto) 0.0 0.0-5.0 % Neutrophils # (Auto) 10.9 H 1.8-7.7 K/uL Lymphocytes # (Auto) 0.4 L 1.0-4.8 K/uL Monocytes # (Auto) 0.5 0.1-1.0 K/uL Eosinophils # (Auto) 0.00 0.00-0.70 K/uL Basophils # (Auto) 0.00 0.00-0.20 K/uL Absolute Immature Granulocyte (auto 0.10 0-1 K/uL Nucleated Red Blood Cells 0.0 0.0-0.19 % Sodium Level 134 L 136-145 mmol/L Potassium Level 3.0 *L 3.5-5.1 mmol/L Chloride Level 97 L 101-111 mmol/L Carbon Dioxide Level 26 21-32 mmol/L Blood Urea Nitrogen 67 H 7-18 mg/dL Creatinine 3.3 H 0.5-1.3 mg/dL Glomerular Filtration Rate Calc 19 >90 mL/min Random Glucose 185 #H 70-105 mg/dL Total Calcium 7.4 L 8.5-10.1 mg/dL Whole Blood Glucose 129 H 70-110 MG/DL Phosphorus Level 3.9 2.5-4.9 mg/dL Magnesium Level 1.70 L 1.80-2.40 mg/dL Total Bilirubin 1.1 H 0.2-1.0 mg/dL Aspartate Amino Transf (AST/SGOT) 29 10-37 U/L Alanine Aminotransferase (ALT/SGPT) 26 12-78 U/L Alkaline Phosphatase 233 H 50-136 U/L Total Protein 6.2 6.0-8.3 g/dL Albumin 2.6 L 3.5-5.0 g/dL Current Medications Medications (Trade) Dose Ordered Sig/Roderick Route PRN Reason Start Time Stop Time Status Last Admin Dose Admin Acetaminophen (TYLenol 325MG TAB) 650 mg Q6H PRN PO MILD PAIN (1-3) 07/04/24 01:00 08/03/24 00:59 07/05/24 22:33 650 MG Albuterol Sulfate (Proventil 0.083% 2.5mg/3ml) 10 mg ONCE STAT IH 06/17/24 04:05 06/17/24 04:12 DC 06/17/24 04:31 10 MG Amiodarone HCl 360 mg/Dextrose 200 ml @ 0 mls/hr PROTOCOL IV 06/24/24 14:30 06/25/24 09:16 DC 06/24/24 15:51 33.33 MLS/HR Amiodarone HCl 540 mg/Dextrose 300 ml @ 0 mls/hr PROTOCOL IV 06/24/24 21:00 07/06/24 08:55 DC 06/24/24 20:42 16.7 MLS/HR Amlodipine Besylate (NorvASC 5MG TAB) 5 mg BID PO 06/22/24 09:00 07/22/24 08:59 07/06/24 08:19 5 MG Apixaban (EliquIS) 5 mg BID PO 06/24/24 14:30 06/30/24 19:54 DC 06/30/24 11:10 5 MG Calcium Carbonate (Tums 500 Mg Chew Tab) 500 tab ONCE PO 06/26/24 15:30 07/26/24 15:29 Cancel Calcium Carbonate (Tums 500 Mg Chew Tab) 500 tab ONCE PO 07/04/24 13:00 07/05/24 13:10 DC Calcium Carbonate (Tums 500 Mg Chew Tab) 500 tab Q6H6 PRN PO GI UPSET/UPSET STOMACH 06/28/24 12:00 07/28/24 11:59 07/06/24 08:18 500 TAB Calcium Gluconate (Calcium Gluc 1gm Vial) 1 gm AD STAT IV 06/17/24 04:05 06/17/24 04:12 DC 06/17/24 04:21 1 GM Cefepime HCl (MAXipime 1 GM vial) 0.25 gm Q24H IVPB 06/17/24 04:00 06/18/24 04:06 DC 06/17/24 04:58 0.25 GM Cefepime HCl (MAXipime 1 GM vial) 1 gm Q24H IVPB 06/20/24 05:00 06/22/24 16:09 DC 06/22/24 03:12 1 GM Cefepime HCl 0.25 gm/Sodium Chloride 50 ml @ 100 mls/hr Q24H IVPB 06/18/24 04:30 06/19/24 10:58 DC 06/19/24 05:26 100 MLS/HR Dextrose (D50w) 50 ml AD PRN IV HYPOGLYCEMIA PROTOCOL 06/17/24 01:00 06/17/24 01:01 DC Dextrose (D50w) 50 ml AD PRN IV HYPOGLYCEMIA PROTOCOL 06/17/24 01:00 07/17/24 00:59 Dextrose (D50w) 50 ml ONCE STAT IV 06/17/24 04:05 06/17/24 04:12 DC 06/17/24 04:21 50 ML Epoetin Rylan-epbx (Retacrit) 10,000 unit [id number] SQ 06/24/24 14:00 06/24/24 13:53 DC Epoetin Rylan-epbx (Retacrit) 10,000 unit QMOWEFR@1600 SQ 06/29/24 15:00 07/29/24 14:59 07/03/24 16:14 10,000 UNIT Epoetin Rylan-epbx (Retacrit) 10,000 unit QWEEK SQ 06/24/24 14:00 06/29/24 14:23 DC 06/24/24 14:37 10,000 UNIT Famotidine (Pepcid 20mg Vial) 20 mg Q48H IV 06/17/24 01:00 07/17/24 00:59 07/05/24 00:01 20 MG Folic Acid (FOLic ACID 1 MG TABLET) 1 mg DAILY PO 06/25/24 09:00 07/25/24 08:59 07/06/24 08:20 1 MG Furosemide (LASix 40MG VIAL) 40 mg Q12H IV 06/28/24 21:00 07/02/24 10:34 DC 07/02/24 09:05 40 MG Furosemide (LASix 40MG VIAL) 40 mg Q8H IV 06/19/24 18:30 06/20/24 18:31 DC 06/20/24 18:54 40 MG Glucagon (Glucagon 1mg Kit) 1 mg AD PRN IM HYPOGLYCEMIA PROTOCOL 06/17/24 01:00 06/17/24 01:01 DC Glucagon (Glucagon 1mg Kit) 1 mg AD PRN IM HYPOGLYCEMIA PROTOCOL 06/17/24 01:00 07/17/24 00:59 Heparin Sodium (Porcine) (HEParin 5,000 UNIT VIAL) 10,000 unit AD IRRIG 07/01/24 14:00 07/31/24 13:59 07/04/24 11:10 10,000 UNIT Hydralazine HCl ([id number] TAB) 25 mg TID PO 06/22/24 09:00 07/22/24 08:59 07/06/24 08:19 25 MG Hydrocortisone Sodium Succinate (Solu-corTEF 100MG) 50 mg ONCE@1930 IV 06/22/24 19:30 06/22/24 22:30 DC 06/22/24 19:59 50 MG Hydrocortisone Sodium Succinate (Solu-corTEF 100MG) 50 mg Q12H IV 07/03/24 21:00 07/23/24 05:59 07/06/24 08:19 50 MG Hydrocortisone Sodium Succinate (Solu-corTEF 100MG) 50 mg Q8H IV 06/18/24 11:30 06/22/24 15:46 DC 06/22/24 03:12 50 MG Hydrocortisone Sodium Succinate (Solu-corTEF 100MG) 50 mg Q8H6 IV 06/23/24 06:00 07/03/24 20:49 DC 07/03/24 14:12 50 MG Hydromorphone HCl (DiLAUDid 0.5MG INJ) 0.5 mg Q4H PRN IVP SEVERE PAIN (7-10) 06/20/24 13:00 06/25/24 12:59 DC 06/21/24 23:50 0.5 MG Insulin Human Regular (humuLIN R 100 UNIT/ML 3ML) 10 unit ONCE STAT IV 06/17/24 04:05 06/17/24 04:12 DC 06/17/24 04:28 10 UNIT Insulin Human Regular (humuLIN R 100 UNIT/ML 3ML) INSULIN SLIDING SCAL... ACHS SQ 06/17/24 07:30 07/17/24 07:29 07/06/24 06:43 2 UNIT Lactated Ringer's 1,000 ml @ 130 mls/hr Q7H42M IV 06/21/24 09:30 06/28/24 09:51 DC 06/28/24 09:03 130 MLS/HR Lactobacillus Rhamnosus ([facility]) 1 each BID PO 06/28/24 10:00 07/28/24 09:59 07/05/24 22:09 1 EACH Leptospermum Honey ([facility]) 1 appl DAILY TP 06/19/24 09:00 07/19/24 08:59 07/05/24 09:47 1 APPL Magnesium Sulfate 50 ml @ 0 mls/hr PROTOCOL PRN IV MAGNESIUM PROTOCOL 06/23/24 11:30 07/23/24 11:29 07/05/24 05:23 25 MLS/HR Metoprolol Tartrate (loprESSOR) 25 mg BID PO 06/24/24 14:30 07/24/24 14:29 07/06/24 08:19 25 MG Metronidazole/ Sodium Chloride (flaGYL) 500 mg Q8H IV 06/17/24 05:00 06/27/24 04:59 DC 06/26/24 21:48 500 MG Micafungin Sodium 100 ml @ 100 mls/hr Q24H IV 06/18/24 00:00 07/18/24 00:00 07/06/24 01:58 100 MLS/HR Morphine Sulfate (morPHINE 2MG SYG) 2 mg Q4H PRN IVP SEVERE PAIN (7-10) 06/29/24 00:30 07/01/24 16:10 DC 07/01/24 01:35 2 MG Norepinephrine 250 ml @ 0 mls/hr PROTOCOL IV 06/16/24 22:00 06/22/24 07:20 DC 06/17/24 05:33 24.5 MLS/HR Ondansetron HCl (zoFRAN 4MG INJ) 4 mg Q6H PRN IVP NAUSEA/VOMITING 06/23/24 20:30 07/23/24 20:29 07/02/24 16:33 4 MG Pharmacy Profile Note (Lace Assessment) 1 each AD MISC 06/19/24 15:30 06/20/24 12:49 DC Pharmacy Profile Note (Pharmacy Communication) 1 each ONCE MISC 06/17/24 23:00 06/19/24 07:13 DC 06/17/24 23:31 1 EACH Pharmacy Profile Note (Pharmacy Communication) 1 each ONCE MISC 06/22/24 16:30 06/23/24 07:22 DC Pharmacy Profile Note (Pharmacy Communication) 1 each ONCE MISC 06/30/24 12:30 06/30/24 12:08 DC Pharmacy Profile Note (Pharmacy Communication) 1 each ONCE MISC 06/30/24 14:30 06/30/24 14:16 DC Phenylephrine HCl 100 mg/Sodium Chloride 250 ml @ 0 mls/hr AD PRN IV TITRATE 06/17/24 10:30 06/22/24 07:20 DC 06/18/24 05:48 27 MLS/HR Piperacillin Sod/ Tazobactam Sod (Zosyn 3.375gm+NS 50ml) 3.375 gm Q12H IV 06/16/24 21:30 06/17/24 01:03 DC 06/16/24 21:42 3.375 GM Piperacillin Sod/ Tazobactam Sod (Zosyn 3.375gm+NS 50ml) 3.375 gm Q12H IVPB 06/17/24 01:00 06/17/24 04:00 DC 06/17/24 02:54 3.375 GM Potassium Chloride 100 ml @ 100 mls/hr AD PRN IV POTASSIUM PROTOCOL 06/21/24 08:00 07/21/24 07:59 07/01/24 05:21 100 MLS/HR Potassium Chloride 100 ml @ 100 mls/hr AD PRN IV POTASSIUM PROTOCOL 06/23/24 11:30 07/23/24 11:29 07/06/24 06:38 100 MLS/HR Potassium Chloride (K-Dur/Klor-Con 20meq) 20 meq AD PRN PO POTASSIUM PROTOCOL 06/23/24 11:30 07/23/24 11:29 07/05/24 05:23 20 MEQ Potassium Chloride (K-Dur/Klor-Con 20meq) 40 meq BID PO 06/22/24 09:00 06/22/24 21:01 DC 06/22/24 19:54 40 MEQ Potassium Chloride (K-Dur/Klor-Con 20meq) 40 meq BID PO 06/25/24 09:00 06/28/24 09:51 DC 06/27/24 09:23 40 MEQ Potassium Chloride (KCl 10% Elixir 20meq/15ml) 20 meq AD PRN PO POTASSIUM PROTOCOL 06/23/24 11:30 07/23/24 11:29 Sodium Bicarbonate / Dextrose 1,000 ml @ 0 mls/hr Q0M IVP 06/17/24 05:00 06/17/24 04:58 DC Sodium Bicarbonate 150 meq/Dextrose 1,150 ml @ 50 mls/hr Q23H IVP 06/18/24 08:00 06/19/24 12:24 DC 06/18/24 20:23 100 MLS/HR Sodium Bicarbonate 150 meq/Dextrose 1,150 ml @ 100 mls/hr [id number] IVP 06/17/24 05:00 06/18/24 04:44 DC 06/17/24 21:00 100 MLS/HR Sodium Polystyrene Sulfonate (kayEXALate 15 GM/60 ML) 15 gm Q2H PO 06/16/24 21:30 06/16/24 23:31 DC 06/16/24 22:21 15 GM Sodium Chloride 1,000 ml @ 0 mls/hr ONCE IV 07/01/24 14:00 07/31/24 13:59 07/04/24 11:09 100 MLS/HR Sodium Chloride 1,000 ml @ 150 mls/hr Q6H40M IV 06/16/24 23:00 06/17/24 09:10 DC 06/17/24 05:15 150 MLS/HR Sodium Chloride (NS 50ml) 50 ml AD IV 06/17/24 01:00 06/17/24 01:05 DC Sucralfate (Carafate) 1 gm BID PO 06/28/24 12:30 06/28/24 22:30 DC 06/28/24 20:56 1 GM Sucralfate (Carafate) 1 gm BID PO 07/03/24 09:00 08/02/24 08:59 07/06/24 08:20 1 GM Thiamine HCl (Vitamin B-1) 100 mg DAILY IVP 06/17/24 09:00 07/17/24 08:59 07/06/24 08:20 100 MG Tigecycline 100 mg/Sodium Chloride 100 ml @ 200 mls/hr ONCE IV 06/22/24 16:30 06/23/24 07:21 DC 06/22/24 18:51 200 MLS/HR Tigecycline 50 mg/ Sodium Chloride 100 ml @ 200 mls/hr BID@0600,1800 IV 06/23/24 06:00 06/30/24 05:59 DC 06/29/24 17:57 200 MLS/HR Tigecycline 50 mg/ Sodium Chloride 100 ml @ 200 mls/hr BID@0600,1800 IV 06/30/24 18:00 06/30/24 19:53 DC 06/30/24 19:50 200 MLS/HR Tigecycline 50 mg/ Sodium Chloride 100 ml @ 200 mls/hr BID@0800,2000 IV 07/01/24 08:00 07/10/24 07:59 07/06/24 08:25 200 MLS/HR Vancomycin HCl (Vancomycin 750mg) 750 mg Q96H IVPB 06/20/24 22:00 06/17/24 14:00 DC Vancomycin HCl (Vancomycin Protocol) 1 each AD IV 06/17/24 01:30 06/17/24 14:01 DC Vitamin B Complex/ Vit C/Folic Acid (Nephrovite Tablet) 1 cap DAILY PO 06/24/24 09:00 07/24/24 08:59 07/06/24 08:19 1 CAP Wound Care/ Dressing Products (Venelex Ointment) 1 APPL BID TP 06/28/24 21:00 07/28/24 20:59 07/05/24 22:25 4 GM DIAGNOSTICS / RADIOLOGY: [ ] ASSESSMENT: Severe metabolic acidosis, resolved POA Septic shock requiring vasopressor, resolved POA Paroxysmal afib with RVR, rate controlled Fungemia 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 Nephrology consulted, appreciate recommendations Stop LR @ 130 cc/hr Start furosemide 40mg IV BID Continue clear liquid diet, will advance tomorrow GI consulted, appreciate recommendations Hematology consulted, appreciate recommendations Anemia workup. Transfuse as needed. Hematology consultation requested per Follow critical care input and recommendation Disposition: Pending AV fistula creation, placement CHRIS MARKS MD July 06, 2024 09:36
--- NOTE | 2024-07-06 10:15 | NUR ---
AVG/AVF PENDING Left message with Dr. Coon and Kandy regarding need for AVG/AVF for discharge. Pending response.
[2024-07-06 13:02] VITALS: BP 119/63; PULSE 64; RESP 18; TEMP 97.9
--- NOTE | 2024-07-06 13:20 | PN ---
NEPHROLOGY PROGRESS NOTE Date/Time Patient Seen: July 06, 2024 SUBJECTIVE: This is a 69-year-old male with a past medical history of peripheral artery disease with osteomyelitis S/p left 4th and 5th toe and right 3rd toe amputation, anemia, chronic pain, diabetes mellitus type 2, hypertension, hyperlipidemia, chronic kidney disease, recent COVID-19 infection. He presented to the emergency room via EMS from [facility] with complaints of low platelets, poor appetite and generalized weakness. Influenza and COVID swabs were negative CT of the abdomen showed mild enterocolitis with mild to moderate small and large bowel liquid contents. He was admitted to the ICU for further medical management of septic shock He continues to require vasopressors to maintain blood pressure. In the emergency room he was noted to have elevated BUN/creatinine and hyperkalemia. Renal function continued to worsen He has been started on renal replacement therapy Tolerated dialysis without difficulty. Pending AV access creation by CV surgeon Case management coordinating outpatient dialysis chair [facility] He was seen in the medical floor, in no acute distress Family at the bedside Condition remains critical and guarded REVIEW OF SYSTEMS: GENERAL: Negative for any nausea, vomiting, fevers, chills, or weight loss. NEUROLOGIC: Negative for any blurry vision, blind spots, double vision, facial asymmetry, dysphagia, dysarthria, hemiparesis, hemisensory deficits, vertigo, ataxia. HEENT: Negative for any head trauma, neck trauma, neck stiffness, photophobia, phonophobia, sinusitis, rhinitis. CARDIAC: Negative for any chest pain, dyspnea on exertion, paroxysmal nocturnal dyspnea, peripheral edema. PULMONARY: Negative for any shortness of breath, wheezing, COPD, or TB exposure. GASTROINTESTINAL: Negative for any abdominal pain, nausea, vomiting, bright red blood per rectum, melena. GENITOURINARY: Negative for any dysuria, hematuria, incontinence. INTEGUMENTARY: Negative for any rashes, cuts, insect bites. RHEUMATOLOGIC: Negative for any joint pains, photosensitive rashes, history of vasculitis or kidney problems. HEMATOLOGIC: Negative for any abnormal bruising, frequent infections or bleeding. PHYSICAL EXAM: GENERAL: Lethargic. No acute distress. Well-nourished. EYES: EOMI. Anicteric. HENT: Moist mucous membranes. No scleral icterus. No cervical lymphadenopathy. LUNGS: Clear to auscultation bilaterally. No accessory muscle use. CARDIOVASCULAR: Regular rate and rhythm. No murmur. No JVD. ABDOMEN: Soft, non-tender and non-distended. No palpable masses. EXTREMITIES: No edema. Non-tender. SKIN: No rashes or lesions. Warm. NEUROLOGIC: No focal neurological deficits. CN II-XII grossly intact, but not individually tested. PSYCHIATRIC: Cooperative. Appropriate mood and affect. LABORATORY: [ ] Hematology Labs: Test 07/06/24 03:08 Range/Units White Blood Count 11.8 H 4.8-10.8 K/uL Red Blood Count 3.52 L 4.50-6.20 MIL/uL Hemoglobin 10.6 L 14.0-18.0 g/dL Hematocrit 30.7 L 42-54 % Mean Corpuscular Volume 87.2 79-99 fL Mean Corpuscular Hemoglobin 30.1 27.0-33.0 pg Mean Corpuscular Hemoglobin Concent 34.5 32.0-36.0 g/dL Red Cell Distribution Width 16.7 H 11.0-15.5 % Platelet Count 182 130-400 K/uL Mean Platelet Volume 11.4 H 7.5-10.5 fL Immature Granulocyte % (Auto) 0.8 0-1 % Neutrophils (%) (Auto) 91.9 H 40.0-77.0 % Lymphocytes (%) (Auto) 3.1 L 21.0-51.0 % Monocytes (%) (Auto) 4.2 3.0-13.0 % Eosinophils (%) (Auto) 0.0 0.0-8.0 % Basophils (%) (Auto) 0.0 0.0-5.0 % Neutrophils # (Auto) 10.9 H 1.8-7.7 K/uL Lymphocytes # (Auto) 0.4 L 1.0-4.8 K/uL Monocytes # (Auto) 0.5 0.1-1.0 K/uL Eosinophils # (Auto) 0.00 0.00-0.70 K/uL Basophils # (Auto) 0.00 0.00-0.20 K/uL Absolute Immature Granulocyte (auto 0.10 0-1 K/uL Nucleated Red Blood Cells 0.0 0.0-0.19 % Chemistry Labs: Test 07/06/24 12:38 07/06/24 03:08 07/05/24 03:08 Range/Units Whole Blood Glucose 182 H 70-110 MG/DL Sodium Level 134 L 136-145 mmol/L Potassium Level 3.0 *L 3.5-5.1 mmol/L Chloride Level 97 L 101-111 mmol/L Carbon Dioxide Level 26 21-32 mmol/L Blood Urea Nitrogen 67 H 7-18 mg/dL Creatinine 3.3 H 0.5-1.3 mg/dL Glomerular Filtration Rate Calc 19 >90 mL/min Random Glucose 185 #H 70-105 mg/dL Total Calcium 7.4 L 8.5-10.1 mg/dL Magnesium Level 1.90 1.80-2.40 mg/dL Phosphorus Level 3.9 2.5-4.9 mg/dL DIAGNOSTICS / RADIOLOGY: REASON: monitor pneumothorax for progression ORDERING PHYSICIAN: AL CARDONA MD PROCEDURE: CXR1VW - CHEST 1VW CHEST 1VW HISTORY: Pneumothorax COMPARISON: None FINDINGS: A frontal projection of the chest was obtained. Bilateral lower lung pulmonary infiltrates are seen. The heart is borderline enlarged. Degenerative changes are seen. No evidence of aortic calcification is seen. IMPRESSION: 1. Bilateral lower lung pulmonary infiltrates. DICTATED BY: PEDRO VERDUGO MD DATE: 07/02/24 1614 REASON: FVO ORDERING PHYSICIAN: LALI BOLDEN NP PROCEDURE: CXR1VW - CHEST 1VW CHEST 1VW HISTORY: [facility] COMPARISON: 06/30/2024 FINDINGS: A frontal projection of the chest was obtained. Mild bilateral pulmonary infiltrates are seen may be related to mild pulmonary vascular congestion with possible superimposed pneumonitis. Right venous catheter is seen with distal tip in the plane of the atriocaval junction. PICC line is also seen entering from the right with distal tip in plane of the superior vena cava. There is 20% right pneumothorax. The heart is borderline enlarged. All the lines and tubes are again seen in place. No evidence of aortic calcification is seen. IMPRESSION: 1. Mild bilateral pulmonary infiltrates are seen may be related to mild pulmonary vascular congestion with possible superimposed pneumonitis. 20% right pneumothorax. Report was given to the critical care team. DICTATED BY: PEDRO VERDUGO MD DATE: 07/02/24 0964 REASON: ORDERING PHYSICIAN: BRENDA MAI MD PROCEDURE: CATH PROC - NODULIZER PROCEDURE REQUEST NODULIZER PROCEDURE REQUEST INDICATION: ESRD, hemodialysis. CASUALTY CLAIM ADJUSTER: Dr Jackson PROCEDURE DETAILS: Informed consent was obtained after discussion of the risks, benefits and alternatives to treatment. Sterile Prep: All elements of maximal sterile barrier technique, including hand hygiene and cutaneous antisepsis were used. A time-out was performed prior to the procedure. Anesthesia type: 14 mL of 1% lidocaine subcutaneous. Patient also received 1 mg Versed intravenous, 25 mcg fentanyl intravenous. Vital signs monitored and observed by catheter lab nursing staff. Contrast: None Estimated blood loss: Less than 5 cc. TECHNIQUE: Imaging guidance: Ultrasound demonstrates right internal jugular vein to be patent. Access: Right internal jugular vein Venous access device: 28 cm Duramax Bioflow catheter Fluoroscopy time: 0.2 minutes Intraprocedural or immediate post-procedural complications: None FINDINGS: Sonographic evaluation of the access vein: The length of the target vessel was evaluated for internal echoes, stenosis and patency. The access vessel is patent. Catheter tip location: Right atrium Additional observations: Both ports were flushed and heparin packed. Both ports were clamped and capped. Sterile dressing applied. No observed complications. IMPRESSION: Insertion of right internal jugular vein tunneled hemodialysis catheter. The catheter may be used immediately. DICTATED BY: APOLONIA JACKSON DO DATE: 07/01/24933 REASON: VEIN MAPPING ORDERING PHYSICIAN: RUSTY TIERNEY MD PROCEDURE: VEIN M UNI - US VEIN MAPPING UNI/LTD US VEIN MAPPING UNI/LTD HISTORY: Preop COMPARISON: None TECHNIQUE: Ultrasound upper extremity venous mapping study was performed for hemodialysis access. FINDINGS: Left cephalic vein High upper arm: 12 x 2 millimeter Mid upper arm: 9 x 2 millimeter Low upper arm: 4 x 2 millimeter High forearm: 7 x 1 millimeter Mid forearm: 8 x 2 millimeter Low forearm: 2 x 2 millimeter Left basilic vein Upper arm: 15 x 3 millimeter Lower arm: 14 x 2 millimeter Antecubital fossa: 7 x 2 millimeter IMPRESSION: 1. Ultrasound upper extremity venous mapping study as described above. DICTATED BY: PEDRO VERDUGO MD DATE: 07/01/241936 REASON: new start dialysis pt ORDERING PHYSICIAN: BRENDA MAI MD PROCEDURE: CXR1VW - CHEST 1VW CHEST 1VW HISTORY: Dialysis COMPARISON: 06/29/2024 FINDINGS: A frontal projection of the chest was obtained. Mild bilateral pulmonary infiltrates are seen may be related to mild pulmonary vascular congestion with possible superimposed pneumonitis. The heart is borderline enlarged. All the lines and tubes are again seen in place. No evidence of aortic calcification is seen. IMPRESSION: 1. Mild bilateral pulmonary infiltrates are seen may be related to mild pulmonary vascular congestion with possible superimposed pneumonitis. DICTATED BY: PEDRO VERDUGO MD DATE: 06/30/24 1627 REASON: hypoxia resp failure ORDERING PHYSICIAN: SMITA BRICE PROCEDURE: CXR1VW - CHEST 1VW CHEST 1VW HISTORY: Hypoxia COMPARISON: 06/09/2024 FINDINGS: A frontal projection of the chest was obtained. There are bilateral pulmonary infiltrates suggestive of pulmonary vascular congestion with possible superimposed pneumonitis. The heart is borderline enlarged. Degenerative changes are seen. No evidence of aortic calcification is seen. IMPRESSION: 1. Bilateral pulmonary infiltrates are seen suggestive of pulmonary vascular congestion with possible superimposed pneumonitis. DICTATED BY: PEDRO VERDUGO MD DATE: 06/29/24 1245 REASON: SOB ORDERING PHYSICIAN: LALI BOLDEN NP PROCEDURE: CXR1VW - CHEST 1VW PORTABLE CHEST RADIOGRAPH INDICATION: SOB COMPARISON: 06/18/2024 FINDINGS: site monitor leads overlie the field of view. Tip of right PICC within the SVC. Heart remains enlarged. The pulmonary vascularity and mauricio appear normal. No abnormal pulmonary parenchymal opacity or consolidation identified. No significant pleural effusion noted. No pneumothorax detected. IMPRESSION: Stable cardiac megaly without radiographic evidence for any acute cardiopulmonary process. DICTATED BY: ROLANDO HAN MD DATE: 06/19/24 1011 REASON: SOB ORDERING PHYSICIAN: LALI BOLDEN NP PROCEDURE: CXR1VW - CHEST 1VW PORTABLE CHEST RADIOGRAPH INDICATION: SOB COMPARISON: 06/16/2024 FINDINGS: site monitor leads overlie the field of view. Patient positioning is not optimal, but the radiologic examination is still believed to be of reasonable diagnostic quality. Stable right PICC. Stable heart size. Mild calcific plaque is present along the aortic arch rosales. The pulmonary vascularity and mauricio appear normal. Suspect very small layering right and very small left pleural effusions with subjacent passive linear opacities. No evidence for consolidation. No pneumothorax detected. IMPRESSION: Suspect very small layering right and very small left pleural effusions with subjacent passive atelectasis. DICTATED BY: ROLANDO HAN MD DATE: 06/19/24 1021 REASON: sob ORDERING PHYSICIAN: LILIAM LACY PROCEDURE: ECHO CMP - ECHO 2-D COMPLETE APPROVED REPORT EXAM: Two-dimensional and M-mode echocardiogram with Doppler and color Doppler. INDICATION ICD: R06.02 Shortness of breath 2D Dimensions RVDd 5.0 cm LVEF(%) 68.3 (>50%) LVED Vol(simp.) 128.0 mL IVSd 1.4 (0.7-1.1cm) FS(%) 38 % LVES Vol(simp.) 51.0 mL LVDd 4.2 (3.8-5.6cm) LA (2D) 4.0 (1.6-4.0cm) LVEF(%, simp.) 60 % PWd 1.5 (0.7-1.1cm) Ao Root(2D) 4.0 (2.0-3.7cm) LA ESV INDEX (BP) 37.99 mL/m2 LVDs 2.6 (2.5-4.0cm) LVOT diam 2.3 (1.8-2.4cm) IVC diam 2.1 cm Deformation Strain Apical 4 -19.0 % Apical 2 -15.0 % Apical 3 -16.0 % Global Strain -17.0 % M-Mode Dimensions EPSS 1.1 cm LA (MM) 4.0 (1.6-4.0cm) Ao Root(MM) 3.0 (2.0-3.7cm) Aortic Valve AoV Vmax 2.5 m/s Ao Peak GR 24.7 mmHg LVOT Vmax 1.5 m/s AoV VTI 0.4 m Ao Mean GR 15.1 mmHg LVOT VTI 0.29 m DEBORA (VMAX) 2.9 cm2 DEBORA (VTI) 2.9 cm2 Mitral Valve MV E Vmax 144.9 cm/s DECEL Time 175 ms MV A Vmax 128.2 cm/s P 1/2 T 58 ms E/A ratio 1.1 MVA (PHT) 3.8 cm2 TDI E/E' Medial 16.1 E/E' Lateral 14.5 Medial E' Peak V 9.00 cm/s Lateral E' Peak V 10.00 cm/s Pulmonary Valve PV Vmax 1.3 m/s Tricuspid Valve TR Vmax 2.7 m/s RAP (EST) 3 mmHg RVSP 32.3 mmHg TR Peak GR 29.3 mmHg Left Ventricle The left ventricle is normal size. GS -17%. Hyoerdynamic LV with normal LV segmental wall motion. Moderate concentric left ventricular hypertrophy. LVEF is 60-65%. Grade 2 diastolic dysfunction. Right Ventricle The right ventricle is moderately dilated, measuring 5.0 cm. The right ventricular systolic function is normal. Atria The left atrium is mildly dilated with an LA ESV index of 38 mL/m�. The right atrium is moderately dilated. Aortic Valve Aortic valve is trileaflet, with mild sclerosis of the left coronary cusp. The aortic valve is seen to open near normally. No aortic regurgitation is present. There is no aortic valvular stenosis. Mitral Valve Mitral valve leaflets open well. Posterior annular and leaflet calcification noted. There is no mitral valve regurgitation noted. There is no mitral valve stenosis. Tricuspid Valve The tricuspid valve is normal in structure. There is trace of tricuspid valve regurgitation noted. Pulmonic Valve The pulmonary valve is normal in structure. There is no pulmonic valvular regurgitation. Great Vessels The aortic root is normal in size. The IVC is normal in size and collapses >50% with inspiration. Pericardium There is no pericardial effusion. Other Information Quality : Adequate Conclusion The left ventricle is normal size. Moderate concentric left ventricular hypertrophy. GS -17%. Hyoerdynamic LV with normal LV segmental wall motion. LVEF is 60-65%. Grade 2 diastolic dysfunction. Aortic valve is trileaflet, with mild sclerosis of the left coronary cusp. The aortic valve is seen to open near normally. There is no aortic valvular stenosis. Mitral valve leaflets open well. Posterior annular and leaflet calcification noted. There is no mitral valve stenosis. There is no mitral valve regurgitation noted. There is no pericardial effusion. DICTATED BY: KATJA LANDRY MD DATE: 06/17/24 0847 REASON: RENAL FAILURE ORDERING PHYSICIAN: EUSEBIO POWELL PROCEDURE: ABD PEL WO - CT ABDOMEN/PELVIS W/O CONTRAST CT ABDOMEN WITHOUT CONTRAST. CT PELVIS WITHOUT CONTRAST. INDICATION: Renal failure TECHNIQUE: Routine transaxial imaging using 5 mm slice thickness through the abdomen and pelvis without the administration of IV contrast. Thin slice reconstructions are also provided. Coronal and sagittal reformatted images acquired for interpretation. CT was performed with one or more of the following dose reduction techniques: Automated exposure control, adjustment of the mA and/or kV according to patient size, or use of iterative reconstruction technique. COMPARISON: None FINDINGS: Diagnostic sensitivity of this examination is limited by patient motion artifact. ON NONCONTRAST IMAGING: ABDOMEN: Heart size is normal. Mitral annular calcific plaque. Visible lung bases are clear. No abnormal renal calcifications, hydronephrosis, perinephric inflammation, or proximal hydroureter detected. The liver is normal in size and smooth in contour without biliary duct dilation. The spleen is normal in size and attenuation. Several miniscule calcifications within the gallbladder lumen. The pancreas appears normal without pancreatic duct dilation. The adrenal glands appear normal. No significant abdominal, retrocrural or retroperitoneal adenopathy noted. No evidence for intra-abdominal free air or organized fluid collection. Mild calcific plaque is noted along the abdominal aortic and iliac vessel rosales without aneurysmal dilation. PELVIS: Gallagher catheter within the nearly empty urinary bladder. Urinary bladder wall thickening is more than expected for empty urinary bladder. No evidence for free air or organized pelvic fluid collection. No significant pelvic adenopathy detected. Mild to moderate small and large bowel liquid contents. A few diverticula along the distal colon. Terminal ileum appears unremarkable. The appendix appears normal. Mild thoracolumbar spondylosis. IMPRESSION: 1. Probable mild enterocolitis with mild to moderate small and large bowel liquid contents. 2. Cholelithiasis. 3. Urinary bladder wall thickening, more than expected for empty urinary bladder. Correlation with urine studies is recommended. 4. Mild distal colonic diverticulosis. 5. Arteriosclerotic disease as described. DICTATED BY: ROLANDO HAN MD DATE: 06/17/24 1000 REASON: NETO ORDERING PHYSICIAN: BRENDA MAI MD PROCEDURE: RENAL - US RENAL SONOGRAM ULTRASOUND RENAL COMPLETE INDICATION: NETO TECHNIQUE: Routine ultrasound of the kidneys and urinary bladder with grayscale and color Doppler imaging was performed in real-time, and subsequently made available for review. COMPARISON: No prior studies available for comparison. FINDINGS: The right kidney measures 9.7 x 4.9 x 4.6 cm. No abnormal mass demonstrated. No evidence for hydronephrosis or shadowing stone. The left kidney measures 10.1 x 5.5 x 4.8 cm. No abnormal mass demonstrated. No evidence for hydronephrosis or shadowing stone. Urinary bladder wall thickness measures 4.0 mm, but exaggerated due to incomplete distention. No free fluid demonstrated. IMPRESSION: Normal sonographic appearance of the kidneys and urinary bladder. DICTATED BY: ROLANDO HAN MD DATE: 06/17/24 0949 REASON: cp ORDERING PHYSICIAN: MARY CARR MD PROCEDURE: CXR1VW - CHEST 1VW PORTABLE CHEST RADIOGRAPH INDICATION: cp COMPARISON: 05/06/2024 FINDINGS: site monitor leads overlie the field of view. Tip of right PICC within the SVC. Heart size is normal. Mild calcific plaque is present along the aortic arch rosales. The pulmonary vascularity and mauricio appear normal. No abnormal pulmonary parenchymal opacity or consolidation identified. No significant pleural effusion noted. No pneumothorax detected. IMPRESSION: No radiographic evidence for any acute cardiopulmonary process. DICTATED BY: ROLANDO HAN MD DATE: 06/16/24 8270 ASSESSMENT: Acute on chronic renal failure Severe Lactic acidosis Metabolic acidosis Hyperkalemia Septic shock, requiring vasopressor Acute encephalopathy Thrombocytopenia NSTEMI, rule-out demand ischemia vs true cardiac etiology Failure to thrive History of osteomyelitis with recent amputation Elevated troponin Elevated BNP Diabetes mellitus type 2 Hypertension Hyperlipidemia Peripheral artery disease PLAN: Labs, diagnostic, radiologic exams reviewed and interpreted by myself and supervising physician. We have reviewed external records in detail Continue dialysis schedule Saturday Case management coordinating outpatient dialysis chair [facility] Pending AV access creation Order CBC, CMP, and electrolytes in am Follow up culture results BiPAP as necessary, for respiratory distress Monitor blood pressure adjust medication doses as needed Avoid hypotensive episodes May use Dilaudid 0.5 mg IV every 6 hours as needed for severe pain Monitor blood sugars Strict intake, output, and daily weight should be monitored Please renally adjust medications Avoid nephrotoxic and nonsteroidal drugs Avoid contrast if possible Will continue to monitor renal function, anemia, electrolytes Treatment plan discussed with patient Questions were answered We have discussed with the other team physicians in detail about the care plan We will continue to monitor the patient closely ATTESTATION BY PHYSICIAN I have seen and examined the patient. I reviewed the documentation, medical de cision making, and treatment plan as noted by the mid-level provider above. I agree with the findings and plan of care. BRENDA MAI MD, ELIZABETH FNP July 06, 2024 13:20
[2024-07-06] MEDS: PoTASSium chloRIDE 20MEQ ER 20 MEQ ERTAB PO ONE (14:07)
[2024-07-06 16:21] VITALS: BP 134/62; PULSE 66; RESP 18; TEMP 98.2
--- NOTE | 2024-07-06 17:35 | PN ---
[facility] PROGRESS NOTE Date Patient Seen: July 06, 2024 Time of Visit: 17:35 Supervising Physician: Dr. Patel Supervising Physician: Dr. Archer Primary Care Physician: [None-recently relocated from [place]] Outpatient Specialists: [ ] Inpatient Consults: [facility] team, nephro: Dr. Dowd, cardio: Dr. Bae] PROBLEM LIST: Fungemia Acute on chronic renal failure, progressing to ESRD POA New onset ESRD on dialysis Uremia-POA resolved Enterocolitis POA Cholelithiasis Mild Distal colonic Diverticulosis POA Severe hyperkalemia-POA Resolved Thrombocytopenia-POA. 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 Pt is awake alert and oriented x 3 . no further episodes of nausea or vomiting, BNP 3180, He contiues on lasix 40mg IV q 12hrs per nephrology recs. Urine output 1.4 L. Ches XR with bilateral pulmonary vascular congestion. He is pending SNF per case management. currently on 2L. 07/01/2024: At the time of my evaluation, the patient was lying in. The staff nurse reports acute events overnight. The patient remains on cannula and on the monitor he is hemodynamically stable. Laboratory data was notable for a s interval increase of WBC to 11.7, sodium of 134, potassium of 3.0, chloride 94, CO2 24, BUN of 138, creatinine of 6.2 and a GFR of 9. odium count of 135, potassium of 3.4, chloride of 95, CO2 of 24, BUN of 137, creatinine of 6.4. No new imaging for review. No other complaint. 07/02/2024: At the time of my evaluation, the patient is lying in bed. He warts feeling better today. The patient underwent hemodialysis today 2nd consecutive hemodialysis. On the monitor, the patient is hemodynamically stable and is currently on room air. Laboratory data today showed resolved leukocytosis. H and H and platelet count is stable. Chemistry panel did show a sodium count of 141, a potassium of 2.8, chloride of 99, BUN of 104, creatinine of 5.1 and a GFR of 11. Total calcium of 7.1, magnesium of 1.7. Total protein of 5.5 and a albumin of 2.2. Chest imaging today, showed concern for small pneumothorax per the radiologist's report. The patient continues on antibiotic therapy with Tygacil and micafungin. No complaint. 07/03/2024: At the evaluation, the patient was lying in bed. The staff nurse reports no acute events overnight. Vital signs today are hemodynamically stable and the patient is currently on room air. Laboratory data obtained today showed an interval increase of WBCs to 18.3. H and H and platelet count remained stable. Chemistry panel today was notable for a potassium of 3.0, chloride 97, BUN of 74, creatinine of 3.9 and a GFR of 16. Total calcium of 7.5 and a phosphorus of 5.5. No new imaging for review today. Patient did not undergo dialysis today per the staff nurse he is scheduled for another hemodialysis tomorrow. Currently, the patient remains on antibiotic coverage with micafungin and Tygacil. No other complaint. 07/04/2024: At the time of my evaluation, the patient lying in bed. He was undergoing hemodialysis. Per the hemodialysis nurse, the patient had a interval hypotensive events which later corrected. The patient remains on room air and no respiratory events is noted. Laboratory data showed improved WBC count now to 11.7 H&H and platelet count are stable. Chemistry panel today was notable for a potassium of 3.4, BUN 41, creatinine of 2.2 and a GFR of 30. Total bili solomon of 1.1 with of transaminitis and alkaline phosphatase of 233. No new imaging for review today no other concern. 07/05/2024: At the time of my evaluation, the patient is lying in bed. He reports feeling much better today. No new complaint. The patient remains on room air and is otherwise hemodynamically stable. Laboratory data today showed a interval increase of WBCs to 14.7. H and H and platelet count is otherwise stable. Chemistry panel showed a interval drop of potassium to 3.1 and a magn esium to 1.7. No new imaging for review today. The patient's last hemodialysis session was yesterday. He continues on micafungin and tigecycline. No other complaint. 07/06/2024: At the time of my evaluation, the patient is lying in bed. The staff nurse reports no acute events overnight. On the monitor, the patient is hemodynamically stable. Laboratory data today showed an improved WBC count down to 11.8. H and H and platelet count are stable. Chemistry panel today did show a low potassium of 3.0. Sodium 134, chloride 97, CO2 26, BUN 67, creatinine of 3.3 and a GFR of 19 magnesium of 1.9. No new complaint. REVIEW OF SYSTEMS: A 12 point system review was carried out, pertinent positives of documented above otherwise negative PHYSICAL EXAM: GENERAL: Awake, Alert. Generally weak HEENT: Normocephalic, atraumatic, dry mucosa NECK: Supple, no JVD, trachea midline LUNGS: Clear breath sounds bilaterally. No wheezes HEART: Regular rate and rhythm. Normal S1 and S2, positive murmurs , tachycardic ABD: Abdomen soft, nontender. Bowel sounds present EXT: No clubbing, cyanosis, or edema, bilateral feet wound with toe amputations with dressing CDI NEURO: Awake alert and oriented x 3 Vital Signs (last 8hr) Date Time Temp Pulse Resp B/P (MAP) Pulse Ox O2 Delivery O2 Flow Rate FiO2 07/06/24 16:21 98.2 66 18 134/62 95 Room Air 07/06/24 13:02 97.9 64 18 119/63 96 Room Air LABS: Hematology Labs: Test 07/06/24 03:08 Range/Units White Blood Count 11.8 H 4.8-10.8 K/uL Red Blood Count 3.52 L 4.50-6.20 MIL/uL Hemoglobin 10.6 L 14.0-18.0 g/dL Hematocrit 30.7 L 42-54 % Mean Corpuscular Volume 87.2 79-99 fL Mean Corpuscular Hemoglobin 30.1 27.0-33.0 pg Mean Corpuscular Hemoglobin Concent 34.5 32.0-36.0 g/dL Red Cell Distribution Width 16.7 H 11.0-15.5 % Platelet Count 182 130-400 K/uL Mean Platelet Volume 11.4 H 7.5-10.5 fL Immature Granulocyte % (Auto) 0.8 0-1 % Neutrophils (%) (Auto) 91.9 H 40.0-77.0 % Lymphocytes (%) (Auto) 3.1 L 21.0-51.0 % Monocytes (%) (Auto) 4.2 3.0-13.0 % Eosinophils (%) (Auto) 0.0 0.0-8.0 % Basophils (%) (Auto) 0.0 0.0-5.0 % Neutrophils # (Auto) 10.9 H 1.8-7.7 K/uL Lymphocytes # (Auto) 0.4 L 1.0-4.8 K/uL Monocytes # (Auto) 0.5 0.1-1.0 K/uL Eosinophils # (Auto) 0.00 0.00-0.70 K/uL Basophils # (Auto) 0.00 0.00-0.20 K/uL Absolute Immature Granulocyte (auto 0.10 0-1 K/uL Nucleated Red Blood Cells 0.0 0.0-0.19 % Chemistry Labs: Test 07/06/24 12:38 07/06/24 03:08 07/05/24 03:08 Range/Units Whole Blood Glucose 182 H 70-110 MG/DL Sodium Level 134 L 136-145 mmol/L Potassium Level 3.0 *L 3.5-5.1 mmol/L Chloride Level 97 L 101-111 mmol/L Carbon Dioxide Level 26 21-32 mmol/L Blood Urea Nitrogen 67 H 7-18 mg/dL Creatinine 3.3 H 0.5-1.3 mg/dL Glomerular Filtration Rate Calc 19 >90 mL/min Random Glucose 185 #H 70-105 mg/dL Total Calcium 7.4 L 8.5-10.1 mg/dL Magnesium Level 1.90 1.80-2.40 mg/dL Phosphorus Level 3.9 2.5-4.9 mg/dL DIAGNOSTICS / RADIOLOGY RESULTS: [ ] PLAN Disposition as per primary Pending SNF continue on supplemental oxygen aspiration precautions nutritional support 07/01/2024: For now, going to continue current management for the patient. He is going to continue on oxygen supplementation as ordered. Nephrology discussed with the patient regarding the need for renal replacement therapy to which the patient has agreed and today he underwent a right IJ tunneled hemodialysis catheter placement. Plans are to start hemodialysis later today. We will continue antibiotic/antifungal therapy as ordered. We will follow the recommendation of the treating specialist. We will monitor the patient's progress and response to management. Further orders per attending MD and hospital course. 07/02/2024: For now, we will continue current management for the patient. We will continue antibiotic therapy as ordered. Per the manager basketball, we will hold dialysis tomorrow. I am going to repeat a potassium and magnesium level now to ensure adequate correction. If needs be, we will continue to replace electrolytes as necessary. We will follow the recommendation of the treating specialist. We will continue to provide general supportive care, GI and DVT prophylaxis. Further orders per attending MD and hospital course. 07/03/2024: For now, going to continue current management for the patient. We are going to continue antibiotic therapy as ordered and follow the recomm endation of the Infectious Disease specialist. Patient will resume his hemodialysis session tomorrow. Patient has been receiving Solu-Cortef Q 8 hours deescalate hours and we will attempt to discontinue. We will repeat surveillance labs in the morning. We will monitor the patient's progress and response to management we will continue to provide general supportive care, GI and DVT prophylaxis. Further orders per attending MD and hospital course. 07/04/2024: For now, we are going to continue current management for the patient. We are going to follow recommendation of the treating specialist. The patient we will continue hemodialysis as scheduled and we will await plans for long-term hemodialysis access. Patient will continue on antibiotic therapy as o rdered. I discussed the findings and plan for further management with the patient. We will monitor the patient's progress and response to management. We will continue to provide general supportive care, GI and DVT prophylaxis. Further orders per attending MD and hospital course. 07/05/2024: For now, going to continue current management for the patient. He is going to continue antibiotic therapy as ordered. We will follow the recommendation of the Infectious Disease specialist. Also, the patient is going to continue hemodialysis as guided by the manager basketball through the [facility]. He is currently awaiting a fistula creation. I discussed the findings and plan for further management with the patient. We will monitor the patient's progress and response to management. We will continue to provide general supportive care, GI and DVT prophylaxis. Further orders per attending MD and hospital course. Dispo per primary. 07/06/2024: For now, going to continue current management for the patient. We are going to continue on fungal treatment guided by the Infectious Disease specialist. We will decrease Solu-Cortef dose frequency to daily starting tomorrow. We are awaiting the [facility] for hemodialysis fistula creation. Per the staff nurse, the plan is possibly for tomorrow. We will continue hemodialysis per the manager basketball. I discussed the findings and plan for further management with the patient. We will monitor the patient's progress and response to management. We will continue to provide general supportive care, GI and DVT prophylaxis. Further orders per attending MD and hospital course. Dispo per primary. NEURO: Minimize central acting medications as possible. Maintain fall precautions, adequate lighting during the day PULMONARY: Supplemental 02 as needed. Maintain aspiration precautions at all times CARDIOVASCULAR: Follow hemodynamics. Vital signs per facility protocol GI & NUTRITION: Continue with nutritional support. Continue stool softeners and laxatives as needed. KIDNEYS & ELECTROLYTES: Strict monitoring of intake, output and overall fluid balance. Avoid nephrotoxic medications to the extent possible. Medications to be dosed according to renal function. Monitor electrolytes and replace as needed ENDOCRINE: Maintain blood glucose between 100-180 at all times. Hypoglycemia protocol in place INFECTIOUS DISEASE: Trend temperature, WBC and procalcitonin level Follow cultures, deescalate antibiotics as soon as possible. Panculture if new onset fever ONCOLOGY/HEMATOLOGY/COAGULATION: Monitor for s/s of bleeding Monitor hemoglobin, coagulation studies as needed SKIN: Pressure ulcer prevention per facility protocol Specialty mattress ORTHO/REHAB: Continue PT/OT Prophylaxis: Continue GI and DVT prophylaxis Code Status: Full Resuscitation Disposition: PCCU Patient was seen and case was discussed with bob CALDWELL. Plan of care was discussed and agreed upon. LALI BOLDEN NP July 06, 2024 17:35
[2024-07-06] MEDS: DEXTROSE 50%-WATER 50 ML DISP.SYRIN IV PRN (18:01)
[2024-07-06 19:30] VITALS: BP 113/53; PULSE 58; RESP 20; TEMP 97.8
--- NOTE | 2024-07-06 20:53 | PN ---
INFECTIOUS DISEASE PROGRESS NOTE Date of Service: July 06, 2024 SUBJECTIVE: This is a 69 year old male patient who was seen and examined at bedside in room 224. No fever reported, temperature is 97.9� and slight improvement on the WBC to 11.8. We will continue on tigecycline IV and micafungin. Patient has received three dialysis treatments and pending an AV fistula versus AV graft placement. PHYSICAL EXAM EYES: Anicteric. Pupils equal and reactive. HENT: No oral thrush seen, moist Oral mucosa. NECK: Supple, no JVD or thyromegaly. LUNGS: Good air entry. No rales, no rhonchi. CARDIOVASCULAR: S1, S2 regular. No murmur heard. ABDOMEN: Soft, non tender, bowel sounds present, no organomegaly. CENTRAL NERVOUS SYSTEM: Awake, alert, oriented x 2. SKIN: No rashes, no swelling. LYMPHATICS: No peripheral lymphadenopathy. MUSCULOSKELETAL: No joint swelling, erythema or tenderness. EXTREMITIES: No cyanosis or clubbing. 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 BACK: No deformity, no pressure ulcer. GENITOURINARY: No dysuria or hematuria. Vital Sign (Last 12 Hours) 07/06/24 07/06/24 13:02 16:21 Temp 97.9 98.2 Pulse 64 66 Resp 18 18 B/P (MAP) 119/63 134/62 Pulse Ox 96 95 O2 Delivery Room Air Room Air Intake & Output (last 24hrs) 07/05/24 07/05/24 07/06/24 15:00 23:00 07:00 Output Total 500 ml 500 ml Balance -500 ml -500 ml LABS: Laboratory: Test 07/06/24 17:50 07/06/24 03:08 07/05/24 03:08 Range/Units Whole Blood Glucose 57 #L 70-110 MG/DL White Blood Count 11.8 H 4.8-10.8 K/uL Red Blood Count 3.52 L 4.50-6.20 MIL/uL Hemoglobin 10.6 L 14.0-18.0 g/dL Hematocrit 30.7 L 42-54 % Mean Corpuscular Volume 87.2 79-99 fL Mean Corpuscular Hemoglobin 30.1 27.0-33.0 pg Mean Corpuscular Hemoglobin Concent 34.5 32.0-36.0 g/dL Red Cell Distribution Width 16.7 H 11.0-15.5 % Platelet Count 182 130-400 K/uL Mean Platelet Volume 11.4 H 7.5-10.5 fL Immature Granulocyte % (Auto) 0.8 0-1 % Neutrophils (%) (Auto) 91.9 H 40.0-77.0 % Lymphocytes (%) (Auto) 3.1 L 21.0-51.0 % Monocytes (%) (Auto) 4.2 3.0-13.0 % Eosinophils (%) (Auto) 0.0 0.0-8.0 % Basophils (%) (Auto) 0.0 0.0-5.0 % Neutrophils # (Auto) 10.9 H 1.8-7.7 K/uL Lymphocytes # (Auto) 0.4 L 1.0-4.8 K/uL Monocytes # (Auto) 0.5 0.1-1.0 K/uL Eosinophils # (Auto) 0.00 0.00-0.70 K/uL Basophils # (Auto) 0.00 0.00-0.20 K/uL Absolute Immature Granulocyte (auto 0.10 0-1 K/uL Nucleated Red Blood Cells 0.0 0.0-0.19 % Sodium Level 134 L 136-145 mmol/L Potassium Level 3.0 *L 3.5-5.1 mmol/L Chloride Level 97 L 101-111 mmol/L Carbon Dioxide Level 26 21-32 mmol/L Blood Urea Nitrogen 67 H 7-18 mg/dL Creatinine 3.3 H 0.5-1.3 mg/dL Glomerular Filtration Rate Calc 19 >90 mL/min Random Glucose 185 #H 70-105 mg/dL Total Calcium 7.4 L 8.5-10.1 mg/dL Magnesium Level 1.90 1.80-2.40 mg/dL Phosphorus Level 3.9 2.5-4.9 mg/dL ASSESSMENT: Fungemia. 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 Septic shock, resolving. Anemia requiring blood transfusion, status post EGD. Acute renal failure, new onset dialysis. PLAN: Continue tigecycline IV. Continue micafungin. Continue wound care. Continue pain management. Continue dialysis as recommended by Residential Support Specialist. Pending AV fistula versus AV graft placement. This case was reviewed and discussed with my supervising physician and the above assessment and plan was formulated and agreed upon. ATTESTATION BY PHYSICIAN I have seen and examined the patient. I reviewed the documentation, medical decision making, and treatment plan as noted by the mid-level provider above. I agree with the findings and plan of care. CECIL ROY MD, [facility]TA [facility] July 06, 2024 20:53
[2024-07-06 21:20] VITALS: O2SAT 95
[2024-07-07] VITALS (41 sets, daily range): BP systolic 98–152; BP diastolic 53–73; PULSE 55–80; RESP 14–20; TEMP 97.2–98; O2SAT 95–97
--- NOTE | 2024-07-07 05:38 | NUR ---
Lab refusal Pt has been wanting to hold off on signing consent for AVG/AVF until AM. Pt signed consent at this time. Pt however is refusing labs. Educated pt on need for labs, especially as he is going for a procedure today. Pt states "I don't want to be poked again. So there." Addendum: 07/07/24 at 0644 by ENMA NERI LVN LVN Pt PICC line attempted again (at time of lab collection, blood return was unsuccessful - per pt, this has been ongoing and thus he's been having to be poked for labs). After repeat attempt to flush/collect, blood return successful and labs collected and sent. OR made aware.
[2024-07-07 06:46] LABS: BASOPHILS # (AUTO) 0.01 K/uL (0.00-0.20); BASOPHILS % (AUTO) 0.1 % (0.0-5.0); EOSINOPHILS # (AUTO) 0.02 K/uL (0.00-0.70); EOSINOPHILS % (AUTO) 0.2 % (0.0-8.0); HEMATOCRIT 31.8 % (42-54); IMMATURE GRANULOCYTE ABSOLUTE 0.08 K/uL (0-1); LYMPHOCYTES # (AUTO) 0.8 K/uL (1.0-4.8); LYMPHOCYTES % (AUTO) 7.1 % (21.0-51.0); MEAN CORPUSCULAR HEMOGLOBIN 30.4 pg (27.0-33.0); MEAN CORPUSCULAR HGB CONC 34.3 g/dL (32.0-36.0); MEAN CORPUSCULAR VOLUME 88.8 fL (79-99); MONOCYTES # (AUTO) 0.9 K/uL (0.1-1.0); MONOCYTES % (AUTO) 7.7 % (3.0-13.0); NEUTROPHILS # (AUTO) 9.9 K/uL (1.8-7.7); NEUTROPHILS % (AUTO) 84.2 % (40.0-77.0); PLATELET COUNT (AUTO) 187 K/uL (130-400); RED BLOOD CELL COUNT(AUTO) 3.58 MIL/uL (4.50-6.20); RED CELL DISTRIBUTION WIDTH 17.6 % (11.0-15.5); WHITE BLOOD COUNT (AUTO) 11.8 K/uL (4.8-10.8)
[2024-07-07 06:56] LABS: INR 1.55 (0.85-1.15); PROTHROMBIN TIME 15.7 SEC (9.6-11.6)
[2024-07-07 06:58] LABS: PARTIAL THROMBOPLASTIN TIME 38.6 SEC (26.3-35.5)
[2024-07-07 07:02] LABS: ALBUMIN 2.1 g/dL (3.5-5.0); BILIRUBIN,TOTAL 1.1 mg/dL (0.2-1.0); CREATININE 3.6 mg/dL (0.5-1.3); MAGNESIUM 2.2 mg/dL (1.80-2.40); POTASSIUM 3.3 mmol/L (3.5-5.1); TOTAL PROTEIN, SERUM 5.2 g/dL (6.0-8.3)
[2024-07-07] MEDS ORDERED: HEParin-NS 1,000 UNIT/500 ML 500 ML IV ONE (07:07)
[2024-07-07] MEDS ORDERED: proPOFol 10 MG/ML 20ML VIAL IV ONE (07:34)
[2024-07-07] MEDS ORDERED: LIDOCAINE PF 100MG/5ML (2%) SYRINGE 5ML ONE (07:34)
[2024-07-07] MEDS ORDERED: dexaMETHasone SOD PHOSPHATE 4 MG/ML 1ML VIAL ONE (07:34)
[2024-07-07] MEDS ORDERED: MIDAZOLAM HCL 1 MG/ML 2ML VIAL ONE (07:34)
[2024-07-07] MEDS ORDERED: rocuRONium bROMide 10MG/1ML 5ML VL ONE (07:34)
[2024-07-07] MEDS ORDERED: FENTanyl CITRate PF 50 MCG/1 ML 2ML VIAL ONE (07:34)
[2024-07-07] MEDS ORDERED: NEOSTIGMINE METHYLSULFATE 1MG/ML IV ONE (07:37)
[2024-07-07] MEDS ORDERED: GLYCOPYRROLATE 0.2 MG/ML 5 ML VIAL ONE (07:37)
[2024-07-07] MEDS ORDERED: phenylEPHRINE HCL 10 MG/ML 1ML VIAL IV ONE (07:37)
[2024-07-07] MEDS ORDERED: ondanSETRON 4MG INJ ONE (07:37)
[2024-07-07] MEDS: ceFAZolin SODIUM 1 GM VIAL ONE (08:25)
[2024-07-07] MEDS ORDERED: ceFAZolin SODIUM 1 GM VIAL ONE (08:38)
[2024-07-07] MEDS: ceFAZolin SODIUM 2 GM VIAL IVPB ONE (08:39)
[2024-07-07] MEDS: hydroCORTisone SOD SUCCINATE 100 MG/2 ML VIAL IV SCH (09:00)
[2024-07-07] MEDS ORDERED: traMADol HCL 50 MG TABLET PO PRN ×2 (09:00)
--- NOTE | 2024-07-07 09:59 | PN ---
[facility] PROGRESS NOTE Date Patient Seen: July 07, 2024 Time of Visit: 09:58 Supervising Physician: Evan Patel MD Supervising Physician: Dr. Archer Primary Care Physician: [None-recently relocated from [place]] Outpatient Specialists: [ ] Inpatient Consults: [facility] team, nephro: Dr. Dowd, cardio: Dr. Bae] PROBLEM LIST: Fungemia Acute on chronic renal failure, progressing to ESRD POA New onset ESRD on dialysis Uremia-POA resolved Enterocolitis POA Cholelithiasis Mild Distal colonic Diverticulosis POA Severe hyperkalemia-POA Resolved Thrombocytopenia-POA. 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 Pt is awake alert and oriented x 3 . This morning pt has av fistula operative procedures planned by DR Coon. Otherwise lab similar to yesterday, Disposition per primary team. From pulmonary standpoint patient is stable at this time. We will sign off. Patient will need to follow-up with pulmonary service of choice 2 weeks postdischarge. Please reach to us should the need arise. On behalf of [facility] we are thankful for your team to let us participate in the care of this patient. We will be available if assistance in pulmonary critical care needed. REVIEW OF SYSTEMS: A 12 point system review was carried out, pertinent positives of documented above otherwise negative PHYSICAL EXAM: GENERAL: Awake, Alert. Generally weak HEENT: Normocephalic, atraumatic, dry mucosa NECK: Supple, no JVD, trachea midline LUNGS: Clear breath sounds bilaterally. No wheezes HEART: Regular rate and rhythm. Normal S1 and S2, positive murmurs , tachycardic ABD: Abdomen soft, nontender. Bowel sounds present EXT: No clubbing, cyanosis, or edema, bilateral feet wound with toe amputations with dressing CDI NEURO: Awake alert and oriented x 3 Vital Signs (last 8hr) Date Time Temp Pulse Resp B/P (MAP) Pulse Ox O2 Delivery O2 Flow Rate FiO2 07/07/24 03:30 97.7 55 20 132/53 99 Room Air LABS: Hematology Labs: Test 07/07/24 06:39 Range/Units White Blood Count 11.8 H 4.8-10.8 K/uL Red Blood Count 3.58 L 4.50-6.20 MIL/uL Hemoglobin 10.9 L 14.0-18.0 g/dL Hematocrit 31.8 L 42-54 % Mean Corpuscular Volume 88.8 79-99 fL Mean Corpuscular Hemoglobin 30.4 27.0-33.0 pg Mean Corpuscular Hemoglobin Concent 34.3 32.0-36.0 g/dL Red Cell Distribution Width 17.6 H 11.0-15.5 % Platelet Count 187 130-400 K/uL Mean Platelet Volume 10.9 H 7.5-10.5 fL Immature Granulocyte % (Auto) 0.7 0-1 % Neutrophils (%) (Auto) 84.2 H 40.0-77.0 % Lymphocytes (%) (Auto) 7.1 L 21.0-51.0 % Monocytes (%) (Auto) 7.7 3.0-13.0 % Eosinophils (%) (Auto) 0.2 0.0-8.0 % Basophils (%) (Auto) 0.1 0.0-5.0 % Neutrophils # (Auto) 9.9 H 1.8-7.7 K/uL Lymphocytes # (Auto) 0.8 L 1.0-4.8 K/uL Monocytes # (Auto) 0.9 0.1-1.0 K/uL Eosinophils # (Auto) 0.02 0.00-0.70 K/uL Basophils # (Auto) 0.01 0.00-0.20 K/uL Absolute Immature Granulocyte (auto 0.08 0-1 K/uL Nucleated Red Blood Cells 0.0 0.0-0.19 % Chemistry Labs: Test 07/07/24 07:40 07/07/24 06:39 Range/Units Whole Blood Glucose 138 H 70-110 MG/DL Sodium Level 135 L 136-145 mmol/L Potassium Level 3.3 L 3.5-5.1 mmol/L Chloride Level 98 L 101-111 mmol/L Carbon Dioxide Level 29 21-32 mmol/L Blood Urea Nitrogen 73 H 7-18 mg/dL Creatinine 3.6 H 0.5-1.3 mg/dL Glomerular Filtration Rate Calc 17 >90 mL/min Random Glucose 146 H 70-105 mg/dL Total Calcium 7.4 L 8.5-10.1 mg/dL Phosphorus Level 4.0 2.5-4.9 mg/dL Magnesium Level 2.20 1.80-2.40 mg/dL Total Bilirubin 1.1 H 0.2-1.0 mg/dL Aspartate Amino Transf (AST/SGOT) 29 10-37 U/L Alanine Aminotransferase (ALT/SGPT) 25 12-78 U/L Alkaline Phosphatase 230 H 50-136 U/L Total Protein 5.2 L 6.0-8.3 g/dL Albumin 2.1 L 3.5-5.0 g/dL Coagulation Labs: Test 07/07/24 06:39 Range/Units Prothrombin Time 15.7 H 9.6-11.6 SEC Prothromb Time International Ratio 1.55 H 0.85-1.15 Activated Partial Thromboplast Time 38.6 H 26.3-35.5 SEC DIAGNOSTICS / RADIOLOGY RESULTS: [ ] PLAN Disposition as per primary Pending SNF continue on supplemental oxygen aspiration precautions nutritional support 07/01/2024: For now, going to continue current management for the patient. He is going to continue on oxygen supplementation as ordered. Nephrology discussed with the patient regarding the need for renal replacement therapy to which the patient has agreed and today he underwent a right IJ tunneled hemodialysis catheter placement. Plans are to start hemodialysis later today. We will continue antibiotic/antifungal therapy as ordered. We will follow the recommendation of the treating specialist. We will monitor the patient's progress and response to management. Further orders per attending MD and hospital course. 07/02/2024: For now, we will continue current management for the patient. We will continue antibiotic therapy as ordered. Per the lifestyle director, we will hold dialysis tomorrow. I am going to repeat a potassium and magnesium level now to ensure adequate correction. If needs be, we will continue to replace electrolytes as necessary. We will follow the recommendation of the treating specialist. We will continue to provide general supportive care, GI and DVT prophylaxis. Further orders per attending MD and hospital course. 07/03/2024: For now, going to continue current management for the patient. We are going to continue antibiotic therapy as ordered and follow the recommendation of the Infectious Disease specialist. Patient will resume his h emodialysis session tomorrow. Patient has been receiving Solu-Cortef Q 8 hours deescalate hours and we will attempt to discontinue. We will repeat surveillance labs in the morning. We will monitor the patient's progress and response to management we will continue to provide general supportive care, GI and DVT prophylaxis. Further orders per attending MD and hospital course. 07/04/2024: For now, we are going to continue current management for the patient. We are going to follow recommendation of the treating specialist. The patient we will continue hemodialysis as scheduled and we will await plans for long-term hemodialysis access. Patient will continue on antibiotic therapy as ordered. I discussed the findings and plan for further management with the patient. We will monitor the patient's progress and response to management. We will continue to provide general supportive care, GI and DVT prophylaxis. Further orders per attending MD and hospital course. 07/05/2024: For now, going to continue current management for the patient. He is going to continue antibiotic therapy as ordered. We will follow the recommendation of the Infectious Disease specialist. Also, the patient is going to continue hemodialysis as guided by the lifestyle director through the [facility]. He is currently awaiting a fistula creation. I discussed the findings and plan for further management with the patient. We will monitor the patient's progress and response to management. We will continue to provide general supportive care, GI and DVT prophylaxis. Further orders per attending MD and hospital course. Dispo per primary. 07/06/2024: For now, going to continue current management for the patient. We are going to continue on fungal treatment guided by the Infectious Disease aubree watson. We will decrease Solu-Cortef dose frequency to daily starting tomorrow. We are awaiting the [facility] for hemodialysis fistula creation. Per the staff nurse, the plan is possibly for tomorrow. We will continue hemodialysis per the lifestyle director. I discussed the findings and plan for further management with the patient. We will monitor the patient's progress and response to management. We will continue to provide general supportive care, GI and DVT prophylaxis. Further orders per attending MD and hospital course. Dispo per primary. NEURO: Minimize central acting medications as possible. Maintain fall precautions, adequate lighting during the day PULMONARY: Supplemental 02 as needed. Maintain aspiration precautions at all times CARDIOVASCULAR: Follow hemodynamics. Vital signs per facility protocol GI & NUTRITION: Continue with nutritional support. Continue stool softeners and laxatives as needed. KIDNEYS & ELECTROLYTES: Strict monitoring of intake, output and overall fluid balance. Avoid nephrotoxic medications to the extent possible. Medications to be dosed according to renal function. Monitor electrolytes and replace as needed ENDOCRINE: Maintain blood glucose between 100-180 at all times. Hypoglycemia protocol in place INFECTIOUS DISEASE: Trend temperature, WBC and procalcitonin level Follow cultures, deescalate antibiotics as soon as possible. Panculture if new onset fever ONCOLOGY/HEMATOLOGY/COAGULATION: Monitor for s/s of bleeding Monitor hemoglobin, coagulation studies as needed SKIN: Pressure ulcer prevention per facility protocol Specialty mattress ORTHO/REHAB: Continue PT/OT Prophylaxis: Continue GI and DVT prophylaxis Code Status: Full Resuscitation Disposition: PCCU Patient was seen and case was discussed with bob CALDWELL. Plan of care was discussed and agreed upon. ATTESTATION BY PHYSICIAN I attest that I reviewed and discussed the case with the Physician Rn Testing as well as agree with the Physician Rn Testing's findings, plans of care, and documentation above. Evan Hsieh MD, [facility] July 07, 2024 09:59
--- NOTE | 2024-07-07 10:21 | OP ---
DATE OF PROCEDURE: 07/07/2024 PREOPERATIVE DIAGNOSIS: End-stage renal failure, hemodialysis access need. POSTOPERATIVE DIAGNOSIS: End-stage renal failure, hemodialysis access need. PROCEDURE PERFORMED: Brachiocephalic-basilic AV fistula. SURGEON: Hernandez Coon MD FRANCHISE CONSULTANT: Gerardo. ANESTHESIA: COATING OPERATOR. DISPOSITION: Stable. COMPLICATIONS: None. INDICATIONS: This is a patient whom I had the opportunity to see preoperatively, discuss with him the different modes of options for dialysis. He and the logistics operations director decided to proceed with hemodialysis. The patient underwent a temporary dialysis catheter and now we have been consulted for a permanent dialysis access port. His veins on the left side are a little bit small, about 2 mm. The cephalic vein was connected to the brachial artery with minimal distention from the proximal arm up; therefore, I connected the basilic vein as well to the brachiocephalic fistula in order to develop the cephalic vein if possible and then translocate it. At the end of the procedure, we had a minimal thrill. Both veins were a little bit of the small size and I am not sure if either one is going to develop. Follow with ultrasounds, and we will decide if any of these veins develop. Hopefully, if they do, we can use the proximal cephalic as access, and if not, we can translocate the basilic. If none of them develop, then we will have to look for a different site. DESCRIPTION OF PROCEDURE IN DETAIL: With the patient in the supine position after adequate induction of general endotracheal anesthesia, preoperative intravenous antibiotics, percutaneous arterial and venous lines, surgeon-directed timeout and utilizing 2 patient identifiers followed by a transverse incision in the elbow crease. Dissection of the brachial artery, which was placed under control with vessel loops. Dissection of the cephalic vein, which was fully mobilized. The patient was heparinized and the cephalic vein distended. It distended nicely on the elbow crease, but about 5 cm upwards became quite small. End-to-side anastomosis between the brachial artery and the cephalic vein. Poor thrill. Decision was then to airplane flight attendant supervisor the basilic vein, which had been previously and anastomosed to the proximal cephalic vein. Both anastomoses were performed with running suture of 6-0 Prolene. Hemostasis and closure with 2-0 Vicryl and 3-0 Monocryl. The patient was transferred to the recovery room in stable condition. TID: [id number] RECEIPT: [id number]
--- NOTE | 2024-07-07 10:29 | PN ---
[facility] PROGRESS NOTE Date of Service: July 07, 2024 Time of Service: 10:24 SUBJECTIVE: Patient is seen and examined at bedside, case discussed with the RN, during my visit the patient resting comfortably in bed, following simple commands, he is on blood pressure support with Levophed, getting sodium bicarbonate IV. BP 108/57, heart rate of 116, saturating 99% on 2 L nasal cannula. Hemoglobin 8.4, hematocrit 27.0, WBC 14.2, platelet count of 28. Sodium 143, potassium 5.0, bicarb of five, BUN 107, creatinine 9.7. ABG with pH of 7.8, pCO2 less than 15, bicarb of 2.3. 06/18 patient has been seen and examined at bedside, case discussed with the RN, patient remains confused, still on pressor support with Levophed and Andrew- Synephrine, patient also on sodium bicarbonate drip. No family members at bedside during my visit. Blood pressure 112/44, heart rate of 91, saturating 93%. CBC with WBC of 16.4, hemoglobin 8.2, hematocrit 23.7, platelet count of 27. Sodium 145, potassium 3.7, BUN of 102, creatinine 10.2, sodium bicarb of 12. ABG with pH of 7.33, pCO2 31, PO2 64, bicarb of 16.1. Septic workup reviewed, blood cultures no growth after 24 hours. Patient getting broad- spectrum IV antibiotics during my visit. CT of the abdomen pelvis probable mild enterocolitis with mild to moderate small and large bowel liquid content, cholelithiasis, urinary wall thickening, more than expected for empty urinary bladder. Mild distal colonic diverticulosis. 06/19 patient is seen and examined at bedside, case discussed with the RN, no acute events overnight, patient is still confused, however less compared to time of admission. Following very simple commands. He is currently off vasopressors. Replace, output since this morning 500 cc. Blood pressure 111/78, afebrile, saturating 96-98% 2 L nasal cannula. WBC trending down at 11.2, hemoglobin 7.6, hematocrit 20.9, platelet count of 14. BUN 108, creatinin e 10.2. ABG shows a pH 7.41, pCO2 37, PO2 81.5, bicarb 23.1. Blood culture showing Alicia tropicalis. Patient has been started on micafungin. Continue antibiotics. Continue critical care input and recommendation, continue Nephrology input and recommendation in terms of renal replacement therapy, continue daily weight, monitor intake and output. Follow anemia workup, stool occult blood, serial CBC transfuse 1 unit of PRBC hemoglobin less than seven, we will request Hematology consultation as well. 06/20 patient seen at bedside, no acute events overnight. He is not requiring pressors he is afebrile, hemodynamically stable saturating well on 2 L nasal cannula. Hemoglobin was 6.1 and platelets low at night, we will be transfused with packed red blood cells and platelets per critical Care, we will follow up post transfusion. Potassium decreased from 3.4 down to 3.2, creatinine stable at 10.2, we will follow up with Nephrology for recommendations. Urine output is improving, he has been started on Lasix, we will follow up. Patient continues on micafungin. Pt reticulocyte count low at 0.18 suggesting decreased production of RBC, FOBT positive as well concerning for GI Bleed. Will consult hematology and GI and follow up 06/21 patient seen at bedside, no acute events overnight. He has been afebrile, hemodynamically stable saturating well on 2 L nasal cannula. He has been NPO ho wever he has no history of volume overload, and his kidney function is decreased, we will perfuse his kidneys with some IV fluids and allow clear liquid diet. Creatinine stable at 9.9, same as yesterday, potassium decreased at 3.0, nephrology to manage potassium levels until renal function improves. Hemoglobin improved from 8.0 up to 8.7, remainder of his labs are relatively unremarkable. 06/22 Pt seen at bedside, no acute events overnight. He has been downgraded from ICU. He has been afebrile, hemodynamically stable, saturating well on room air. Hgb stable at 8.6, similar to yesterday, platelets decreased from 102 down to 82, potassium low at 2.7, will be repleted according to protocol, creatinine improved from 9.9 down to 8.5, sodium improved from 150 down to 146, remainder of his labs are relatively unremarkable. Urine output adequate, approximately 2.3L output in the last 24 hours. On physical exam, no evidence of volume overflow, will continue with IV fluids to perfuse his kidneys. Left foot sunita wing mullins-resistant organism, ID to adjust antibiotics 06/23 patient seen at bedside, no acute events overnight. He is pending EGD with GI today, we will follow up postprocedure. He has been afebrile, hemodynamically stable, mildly hypertensive with systolics in the 150s, saturating well on 3 L nasal cannula. Hemoglobin improved from 8.6 up to 9.0, platelets decreased from 82 down to 78, creatinine continues to improve from 8.5 down to 7.2 with adequate urine output. Potassium low at 3.1, we will be repl eted according to potassium protocol. Patient weak and feeble, we will likely need transitioned to [facility] facility, case management to assist with placement. He will continue daily physical therapy. 06/24 patient seen at bedside, no acute events overnight. EGD was done yesterday no evidence of bleed noted. Patient refusing colonoscopy. Hgb is uptrending from 9.0 up to 9.3 suggesting resolution of GI bleed, platelets improved from 78 up to 87, creatinine improved from 7.2 down to 6.4, potassium low at 3.4, will be repleted according to protocol. Patient will need placement for IV antibiotics 06/25 patient seen at bedside, no acute events overnight. Continues to refuse colonoscopy yesterday he went into AFib with RVR was started on IV amiodarone. He was rate controlled today, likely we will be transitioned to p.o. amiodarone. Now pending placement to continue IV antibiotic and antifungal therapy. We will follow up with case management and Cardiology. Creatinine improved from 6.4 down to 5.9, BUN still elevated at 112. Potassium low at 2.9 will be repleted according to protocol and will give an extra 80meq supplementation. 06/26 patient seen at bedside, no acute events overnight. He has been afebrile, hemodynamically stable saturating well on room air. WBC increased from 11.3 up to 13.1, hemoglobin stable at 9.7, same as yesterday, creatinine stable at 5.9, same as yesterday, BUN increased from 112 up to 117, remainder of his labs are relatively unremarkable. Proximally 1.1 L urine output in the last 24 hours. He is pending placement 06/27 Pt seen at bedside, no acute events overnight. He remains stable, vitals unremarkable. Pending placement 06/28 patient seen at bedside, no acute events overnight. His urine output has been decreasing, his BUN is up trending and his creatinine stable at 5.9. Discuss with Nephrology and we will hold the IV fluids and start a short course of Lasix to see his response. If he does not improve he may end up needing renal replacement therapy. Remainder of his vitals and labs are unremarkable. 06/29 seen at bedside, no acute events overnight. He was started on Lasix yesterday, diuresed proximally 1.4 L and is -992 mL over the last 24 hours. He still appears fluid overloaded. BUN continues to uptrend, creatinine stable at 6.0, similar to yesterday. Continue to monitor renal function, if it continues to deteriorate or urine output decreases, he may need renal replacement therapy. 06/30 patient seen at bedside, no acute events overnight. Renal function lulu nues to deteriorate, nephrology spoke with the patient about worsening renal function and the patient has agreed to transition to dialysis, will follow up with nephrology. 07/01 patient seen at bedside, no acute events overnight. He was in agreement to begin dialysis he will be taken for PermCath placement today and start his 1st session, venous mapping we will be done and CV surgery has been consulted for AV fistula occlusion. Patient's potassium low at 3.0, we will hold off on repletion due to renal dysfunction and defer to Nephrology for management of the electrolytes. Creatinine stable at 6.2, same as yesterday. WBC increased from 10.2 up to 11.7, hemoglobin decreased from 10.8 down to 9.6, remainder of his labs are relatively unremarkable. 07/02 patient seen at bedside, his dialysis catheter was placed yesterday. This morning on chest x-ray there appears to be a 20% pneumothorax, pulmonology has been updated with these findings, we will order a repeat chest x-ray at 1:00 p.m. and follow up. If there is progression of the pneumothorax he may need a chest tube. Patient has had venogram done, he is pending AV fistula creation with CV surgery. Once the CV surgery has been completed and pneumothorax resolves, patient will be good candidate to transitioned to [facility]. At bedside he is in no acute distress, has no complaints although he does seem tearful about having to be on dialysis and he is currently undergoing a dialysis session. 07/03 patient seen at bedside, no acute events overnight he continues with dialysis, tolerating well. Nephrology and CV surgery are coordinating the AV fistula procedure, we will follow up with their recommendations. He was hemodynamically stable, labs are appropriately arranged for ESRD, potassium low at 3.0 we will defer to Nephrology for repletion. Patient we will need placement once AV fistula has been completed. 07/04 patient seen at bedside, no acute events overnight he continues with dialysis, tolerating well. Nephrology and CV surgery are coordinating the AV fistula procedure, we will follow up with their recommendations. He IS hemodynamically stable, labs are appropriately arranged for ESRD, potassium improved to 3.4 we will defer to Nephrology for repletion. Patient we will need placement once AV fistula has been completed. 07/05 patient seen at bedside, no acute events overnight he continues with dialysis, tolerating well. Nephrology and CV surgery are coordinating the AV fistula procedure, we will follow up with their recommendations. He IS hemodynamically stable, labs are appropriately arranged for ESRD, potassium low at 3.1 we will defer to Nephrology for repletion. Patient will need placement once AV fistula has been completed. 07/06 patient is seen and examined at bedside, case discussed with the RN, no acute events overnight, patient already had vein mapping, he is currently on hemodialysis per Nephrology recommendation, pending AV fistula, discussed with cardiovascular today. Patient will need placement once AV fistula has been completed. 07/07 power chart reviewed, case discussed with the RN, no acute events overnight, patient remains hemodynamically stable, evaluated by vascular surgeon, patient is scheduled for AV fistula/graft to the left upper extremity in the OR today. REVIEW OF SYSTEMS 12 point review of systems negative unless noted in HPI PHYSICAL EXAM GENERAL APPEARANCE: The patient remains confused. Withdrawing to painful stimulation. NEUROLOGICAL: Cranial nerves II-XII grossly intact. Motor is 5/5 in bilateral upper and lower extremities proximal to distal. No sensory deficits. HEENT: Face is symmetric. Pupils are equal and reactive. Extraocular movements are intact. NECK: Supple. No JVD. No thyromegaly. No submental, submandibular, pre-/postauricular, occipital or supraclavicular lymphadenopathy. CHEST: Normal chest expansion. No Telemetry. LUNGS: Absence of any rales, rhonchi or any wheezing. CARDIOVASCULAR: Regular. S1 and S2 normal. No appreciable rubs, murmurs or gallops. ABDOMEN: Soft, nontender, and nondistended. There is no rebound, voluntary guarding, or rigidity. : Deferred. No Gallagher. EXTREMITIES: Non-edematous and not cyanotic. No clubbing. Good capillary refill. SKIN: No skin breakdown. Vital Signs (last 8hr) Date Time Temp Pulse Resp B/P (MAP) Pulse Ox O2 Delivery O2 Flow Rate FiO2 07/07/24 09:53 97.5 67 14 136/69 98 Nonrebreathing Mask 10.0 07/07/24 03:30 97.7 55 20 132/53 99 Room Air LABS: Laboratory: Test 07/07/24 07:40 07/07/24 06:39 Range/Units Whole Blood Glucose 138 H 70-110 MG/DL White Blood Count 11.8 H 4.8-10.8 K/uL Red Blood Count 3.58 L 4.50-6.20 MIL/uL Hemoglobin 10.9 L 14.0-18.0 g/dL Hematocrit 31.8 L 42-54 % Mean Corpuscular Volume 88.8 79-99 fL Mean Corpuscular Hemoglobin 30.4 27.0-33.0 pg Mean Corpuscular Hemoglobin Concent 34.3 32.0-36.0 g/dL Red Cell Distribution Width 17.6 H 11.0-15.5 % Platelet Count 187 130-400 K/uL Mean Platelet Volume 10.9 H 7.5-10.5 fL Immature Granulocyte % (Auto) 0.7 0-1 % Neutrophils (%) (Auto) 84.2 H 40.0-77.0 % Lymphocytes (%) (Auto) 7.1 L 21.0-51.0 % Monocytes (%) (Auto) 7.7 3.0-13.0 % Eosinophils (%) (Auto) 0.2 0.0-8.0 % Basophils (%) (Auto) 0.1 0.0-5.0 % Neutrophils # (Auto) 9.9 H 1.8-7.7 K/uL Lymphocytes # (Auto) 0.8 L 1.0-4.8 K/uL Monocytes # (Auto) 0.9 0.1-1.0 K/uL Eosinophils # (Auto) 0.02 0.00-0.70 K/uL Basophils # (Auto) 0.01 0.00-0.20 K/uL Absolute Immature Granulocyte (auto 0.08 0-1 K/uL Nucleated Red Blood Cells 0.0 0.0-0.19 % Prothrombin Time 15.7 H 9.6-11.6 SEC Prothromb Time International Ratio 1.55 H 0.85-1.15 Activated Partial Thromboplast Time 38.6 H 26.3-35.5 SEC Sodium Level 135 L 136-145 mmol/L Potassium Level 3.3 L 3.5-5.1 mmol/L Chloride Level 98 L 101-111 mmol/L Carbon Dioxide Level 29 21-32 mmol/L Blood Urea Nitrogen 73 H 7-18 mg/dL Creatinine 3.6 H 0.5-1.3 mg/dL Glomerular Filtration Rate Calc 17 >90 mL/min Random Glucose 146 H 70-105 mg/dL Total Calcium 7.4 L 8.5-10.1 mg/dL Phosphorus Level 4.0 2.5-4.9 mg/dL Magnesium Level 2.20 1.80-2.40 mg/dL Total Bilirubin 1.1 H 0.2-1.0 mg/dL Aspartate Amino Transf (AST/SGOT) 29 10-37 U/L Alanine Aminotransferase (ALT/SGPT) 25 12-78 U/L Alkaline Phosphatase 230 H 50-136 U/L Total Protein 5.2 L 6.0-8.3 g/dL Albumin 2.1 L 3.5-5.0 g/dL Current Medications Medications (Trade) Dose Ordered Sig/Roderick Route PRN Reason Start Time Stop Time Status Last Admin Dose Admin Acetaminophen (TYLenol 325MG TAB) 650 mg Q6H PRN PO MILD PAIN (1-3) 07/04/24 01:00 07/07/24 08:34 DC 07/05/24 22:33 650 MG Acetaminophen (TYLenol 325MG TAB) 650 mg Q6H PRN PO MILD PAIN (1-3) 07/07/24 09:00 08/06/24 08:59 Albuterol Sulfate (Proventil 0.083% 2.5mg/3ml) 10 mg ONCE STAT IH 06/17/24 04:05 06/17/24 04:12 DC 06/17/24 04:31 10 MG Amiodarone HCl 360 mg/Dextrose 200 ml @ 0 mls/hr PROTOCOL IV 06/24/24 14:30 06/25/24 09:16 DC 06/24/24 15:51 33.33 MLS/HR Amiodarone HCl 540 mg/Dextrose 300 ml @ 0 mls/hr PROTOCOL IV 06/24/24 21:00 07/06/24 08:55 DC 06/24/24 20:42 16.7 MLS/HR Amlodipine Besylate (NorvASC 5MG TAB) 5 mg BID PO 06/22/24 09:00 07/22/24 08:59 07/06/24 21:06 5 MG Apixaban (EliquIS) 5 mg BID PO 06/24/24 14:30 06/30/24 19:54 DC 06/30/24 11:10 5 MG Calcium Carbonate (Tums 500 Mg Chew Tab) 500 tab ONCE PO 06/26/24 15:30 07/26/24 15:29 Cancel Calcium Carbonate (Tums 500 Mg Chew Tab) 500 tab ONCE PO 07/04/24 13:00 07/05/24 13:10 DC Calcium Carbonate (Tums 500 Mg Chew Tab) 500 tab Q6H6 PRN PO GI UPSET/UPSET STOMACH 06/28/24 12:00 07/28/24 11:59 07/06/24 23:07 1 TAB Calcium Gluconate (Calcium Gluc 1gm Vial) 1 gm AD STAT IV 06/17/24 04:05 06/17/24 04:12 DC 06/17/24 04:21 1 GM Cefepime HCl (MAXipime 1 GM vial) 0.25 gm Q24H IVPB 06/17/24 04:00 06/18/24 04:06 DC 06/17/24 04:58 0.25 GM Cefepime HCl (MAXipime 1 GM vial) 1 gm Q24H IVPB 06/20/24 05:00 06/22/24 16:09 DC 06/22/24 03:12 1 GM Cefepime HCl 0.25 gm/Sodium Chloride 50 ml @ 100 mls/hr Q24H IVPB 06/18/24 04:30 06/19/24 10:58 DC 06/19/24 05:26 100 MLS/HR Dextrose (D50w) 50 ml AD PRN IV HYPOGLYCEMIA PROTOCOL 06/17/24 01:00 06/17/24 01:01 DC Dextrose (D50w) 50 ml AD PRN IV HYPOGLYCEMIA PROTOCOL 06/17/24 01:00 07/17/24 00:59 07/06/24 18:01 50 ML Dextrose (D50w) 50 ml ONCE STAT IV 06/17/24 04:05 06/17/24 04:12 DC 06/17/24 04:21 50 ML Epoetin Rylan-epbx (Retacrit) 10,000 unit MWFR3X SQ 06/24/24 14:00 06/24/24 13:53 DC Epoetin Rylan-epbx (Retacrit) 10,000 unit QMOWEFR@1600 SQ 06/29/24 15:00 07/29/24 14:59 07/03/24 16:14 10,000 UNIT Epoetin Rylan-epbx (Retacrit) 10,000 unit QWEEK SQ 06/24/24 14:00 06/29/24 14:23 DC 06/24/24 14:37 10,000 UNIT Famotidine (Pepcid 20mg Vial) 20 mg Q48H IV 06/17/24 01:00 07/17/24 00:59 07/06/24 23:07 20 MG Folic Acid (FOLic ACID 1 MG TABLET) 1 mg DAILY PO 06/25/24 09:00 07/25/24 08:59 07/06/24 08:20 1 MG Furosemide (LASix 40MG VIAL) 40 mg Q12H IV 06/28/24 21:00 07/02/24 10:34 DC 07/02/24 09:05 40 MG Furosemide (LASix 40MG VIAL) 40 mg Q8H IV 06/19/24 18:30 06/20/24 18:31 DC 06/20/24 18:54 40 MG Glucagon (Glucagon 1mg Kit) 1 mg AD PRN IM HYPOGLYCEMIA PROTOCOL 06/17/24 01:00 06/17/24 01:01 DC Glucagon (Glucagon 1mg Kit) 1 mg AD PRN IM HYPOGLYCEMIA PROTOCOL 06/17/24 01:00 07/17/24 00:59 Heparin Sodium (Porcine) (HEParin 5,000 UNIT VIAL) 10,000 unit AD IRRIG 07/01/24 14:00 07/31/24 13:59 07/04/24 11:10 10,000 UNIT Hydralazine HCl ([id number] TAB) 25 mg TID PO 06/22/24 09:00 07/22/24 08:59 07/06/24 21:06 25 MG Hydrocortisone Sodium Succinate (Solu-corTEF 100MG) 50 mg ONCE@1930 IV 06/22/24 19:30 06/22/24 22:30 DC 06/22/24 19:59 50 MG Hydrocortisone Sodium Succinate (Solu-corTEF 100MG) 50 mg Q12H IV 07/03/24 21:00 07/06/24 21:56 DC 07/06/24 21:06 50 MG Hydrocortisone Sodium Succinate (Solu-corTEF 100MG) 50 mg Q24H IV 07/07/24 09:00 07/23/24 05:59 Hydrocortisone Sodium Succinate (Solu-corTEF 100MG) 50 mg Q8H IV 06/18/24 11:30 06/22/24 15:46 DC 06/22/24 03:12 50 MG Hydrocortisone Sodium Succinate (Solu-corTEF 100MG) 50 mg Q8H6 IV 06/23/24 06:00 07/03/24 20:49 DC 07/03/24 14:12 50 MG Hydromorphone HCl (DiLAUDid 0.5MG INJ) 0.5 mg Q4H PRN IVP SEVERE PAIN (7-10) 06/20/24 13:00 06/25/24 12:59 DC 06/21/24 23:50 0.5 MG Insulin Human Regular (humuLIN R 100 UNIT/ML 3ML) 10 unit ONCE STAT IV 06/17/24 04:05 06/17/24 04:12 DC 06/17/24 04:28 10 UNIT Insulin Human Regular (humuLIN R 100 UNIT/ML 3ML) INSULIN SLIDING SCAL... ACHS SQ 06/17/24 07:30 07/17/24 07:29 07/06/24 11:30 2 UNIT Lactated Ringer's 1,000 ml @ 130 mls/hr Q7H42M IV 06/21/24 09:30 06/28/24 09:51 DC 06/28/24 09:03 130 MLS/HR Lactobacillus Rhamnosus ([facility]) 1 each BID PO 06/28/24 10:00 07/28/24 09:59 07/06/24 21:07 1 EACH Leptospermum Honey (Medihoney) 1 appl DAILY TP 06/19/24 09:00 07/19/24 08:59 07/06/24 14:06 1 APPL Magnesium Sulfate 50 ml @ 0 mls/hr PROTOCOL PRN IV MAGNESIUM PROTOCOL 06/23/24 11:30 07/23/24 11:29 07/06/24 10:54 1.9 MLS/HR Metoprolol Tartrate (loprESSOR) 25 mg BID PO 06/24/24 14:30 07/24/24 14:29 07/06/24 21:06 25 MG Metronidazole/ Sodium Chloride (flaGYL) 500 mg Q8H IV 06/17/24 05:00 06/27/24 04:59 DC 06/26/24 21:48 500 MG Micafungin Sodium 100 ml @ 100 mls/hr Q24H IV 06/18/24 00:00 07/18/24 00:00 07/06/24 23:02 100 MLS/HR Morphine Sulfate (morPHINE 2MG SYG) 2 mg Q4H PRN IVP SEVERE PAIN (7-10) 06/29/24 00:30 07/01/24 16:10 DC 07/01/24 01:35 2 MG Norepinephrine 250 ml @ 0 mls/hr PROTOCOL IV 06/16/24 22:00 06/22/24 07:20 DC 06/17/24 05:33 24.5 MLS/HR Ondansetron HCl (zoFRAN 4MG INJ) 4 mg Q6H PRN IVP NAUSEA/VOMITING 06/23/24 20:30 07/23/24 20:29 07/02/24 16:33 4 MG Pharmacy Profile Note (Lace Assessment) 1 each AD MISC 06/19/24 15:30 06/20/24 12:49 DC Pharmacy Profile Note (Pharmacy Communication) 1 each ONCE MISC 06/17/24 23:00 06/19/24 07:13 DC 06/17/24 23:31 1 EACH Pharmacy Profile Note (Pharmacy Communication) 1 each ONCE MISC 06/22/24 16:30 06/23/24 07:22 DC Pharmacy Profile Note (Pharmacy Communication) 1 each ONCE MISC 06/30/24 12:30 06/30/24 12:08 DC Pharmacy Profile Note (Pharmacy Communication) 1 each ONCE MISC 06/30/24 14:30 06/30/24 14:16 DC Phenylephrine HCl 100 mg/Sodium Chloride 250 ml @ 0 mls/hr AD PRN IV TITRATE 06/17/24 10:30 06/22/24 07:20 DC 06/18/24 05:48 27 MLS/HR Piperacillin Sod/ Tazobactam Sod (Zosyn 3.375gm+NS 50ml) 3.375 gm Q12H IV 06/16/24 21:30 06/17/24 01:03 DC 06/16/24 21:42 3.375 GM Piperacillin Sod/ Tazobactam Sod (Zosyn 3.375gm+NS 50ml) 3.375 gm Q12H IVPB 06/17/24 01:00 06/17/24 04:00 DC 06/17/24 02:54 3.375 GM Potassium Chloride 100 ml @ 100 mls/hr AD PRN IV POTASSIUM PROTOCOL 06/21/24 08:00 07/21/24 07:59 07/01/24 05:21 100 MLS/HR Potassium Chloride 100 ml @ 100 mls/hr AD PRN IV POTASSIUM PROTOCOL 06/23/24 11:30 07/23/24 11:29 07/06/24 06:38 100 MLS/HR Potassium Chloride (K-Dur/Klor-Con 20meq) 20 meq AD PRN PO POTASSIUM PROTOCOL 06/23/24 11:30 07/23/24 11:29 07/05/24 05:23 20 MEQ Potassium Chloride (K-Dur/Klor-Con 20meq) 40 meq BID PO 06/22/24 09:00 06/22/24 21:01 DC 06/22/24 19:54 40 MEQ Potassium Chloride (K-Dur/Klor-Con 20meq) 40 meq BID PO 06/25/24 09:00 06/28/24 09:51 DC 06/27/24 09:23 40 MEQ Potassium Chloride (KCl 10% Elixir 20meq/15ml) 20 meq AD PRN PO POTASSIUM PROTOCOL 06/23/24 11:30 07/23/24 11:29 Sodium Bicarbonate / Dextrose 1,000 ml @ 0 mls/hr Q0M IVP 06/17/24 05:00 06/17/24 04:58 DC Sodium Bicarbonate 150 meq/Dextrose 1,150 ml @ 50 mls/hr Q23H IVP 06/18/24 08:00 06/19/24 12:24 DC 06/18/24 20:23 100 MLS/HR Sodium Bicarbonate 150 meq/Dextrose 1,150 ml @ 100 mls/hr [id number] IVP 06/17/24 05:00 06/18/24 04:44 DC 06/17/24 21:00 100 MLS/HR Sodium Polystyrene Sulfonate (kayEXALate 15 GM/60 ML) 15 gm Q2H PO 06/16/24 21:30 06/16/24 23:31 DC 06/16/24 22:21 15 GM Sodium Chloride 1,000 ml @ 0 mls/hr ONCE IV 07/01/24 14:00 07/31/24 13:59 07/04/24 11:09 100 MLS/HR Sodium Chloride 1,000 ml @ 150 mls/hr Q6H40M IV 06/16/24 23:00 06/17/24 09:10 DC 06/17/24 05:15 150 MLS/HR Sodium Chloride (NS 50ml) 50 ml AD IV 06/17/24 01:00 06/17/24 01:05 DC Sucralfate (Carafate) 1 gm BID PO 06/28/24 12:30 06/28/24 22:30 DC 06/28/24 20:56 1 GM Sucralfate (Carafate) 1 gm BID PO 07/03/24 09:00 08/02/24 08:59 07/06/24 21:07 1 GM Thiamine HCl (Vitamin B-1) 100 mg DAILY IVP 06/17/24 09:00 07/17/24 08:59 07/06/24 08:20 100 MG Tigecycline 100 mg/Sodium Chloride 100 ml @ 200 mls/hr ONCE IV 06/22/24 16:30 06/23/24 07:21 DC 06/22/24 18:51 200 MLS/HR Tigecycline 50 mg/ Sodium Chloride 100 ml @ 200 mls/hr BID@0600,1800 IV 06/23/24 06:00 06/30/24 05:59 DC 06/29/24 17:57 200 MLS/HR Tigecycline 50 mg/ Sodium Chloride 100 ml @ 200 mls/hr BID@0600,1800 IV 06/30/24 18:00 06/30/24 19:53 DC 06/30/24 19:50 200 MLS/HR Tigecycline 50 mg/ Sodium Chloride 100 ml @ 200 mls/hr BID@0800,2000 IV 07/01/24 08:00 07/10/24 07:59 07/06/24 21:06 200 MLS/HR Tramadol HCl (UltRAM) 25 mg Q6H PRN PO MODERATE PAIN (4-6) 07/07/24 09:00 07/12/24 08:59 Tramadol HCl (UltRAM) 50 mg Q6H PRN PO PAIN LEVEL 7 TO 10 07/07/24 09:00 07/12/24 08:59 Vancomycin HCl (Vancomycin 750mg) 750 mg Q96H IVPB 06/20/24 22:00 06/17/24 14:00 DC Vancomycin HCl (Vancomycin Protocol) 1 each AD IV 06/17/24 01:30 06/17/24 14:01 DC Vitamin B Complex/ Vit C/Folic Acid (Nephrovite Tablet) 1 cap DAILY PO 06/24/24 09:00 07/24/24 08:59 07/06/24 08:19 1 CAP Wound Care/ Dressing Products (Venelex Ointment) 1 APPL BID TP 06/28/24 21:00 07/28/24 20:59 07/06/24 22:17 1 GM DIAGNOSTICS / RADIOLOGY: [ ] ASSESSMENT: Severe metabolic acidosis, resolved POA Septic shock requiring vasopressor, resolved POA Paroxysmal afib with RVR, rate controlled Fungemia 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, culture with Acinetobacter baumannii POA Acute on chronic renal failure, progressing to ESRD POA New onset ESRD on dialysis Hyperkalemia, resolved Hypokalemia Chronic anemia POA Acute thrombocytopenia POA Failure to thrive POA Acute encephalopathy, improving DM2 last A1c 7.3 Dyslipidemia Peripheral artery disease Osteomyelitis with recent amputation to both feet POA Hypertension PLAN: Patient remains admitted to the PCU Patient is scheduled for left upper extremity AV fistula/graft in the OR today by vascular surgeon Continue to follow vascular surgeon input and recommendations Infectious disease input noted and appreciated, continue the patient on tigecycline IV and micafungin Continue local wound care Continue with dialysis per recommendations by fraternity adviser Has been on Eliquis 5 mg p.o. b.i.d. as patient with a history of paroxysmal atrial fibrillation with a RVR NEURO: Minimize central acting medications as possible. Fall Precautions. Well lighted room through the day and minimize interruptions through the night to prevent acute delirium. PULMONARY: Supplemental 02 as needed BiPAP as necessary, for respiratory distress Titrate Fio2 to keep Spo2 > or = 90% [facility] and CPT as needed IS hourly while awake for pulmonary hygiene prn Out of bed to chair as tolerated Maintain aspiration precautions at all times CARDIOVASCULAR: Follow hemodynamics. Vital signs per facility protocol GI & NUTRITION: Continue nutritional support Aspirations precautions Prokinetic agents and laxatives as needed KIDNEYS & ELECTROLYTES: Strict monitoring of intake and output Daily weights Avoid nephrotoxic agents Monitor electrolytes and replace as needed Goal urine output of 30mL/hr or 0.5mL/kg/hr Medications to be dosed according to renal function. Avoid contrast if possible ENDOCRINE: Maintain blood glucose between 100-180 at all times. Insulin sliding scale for blood glucose management Hypoglycemia and hyperglycemia protocol in place INFECTIOUS DISEASE: Trend temperature, WBC and procalcitonin level Follow cultures, deescalate antibiotics as soon as possible. Panculture if new onset fever HEMATOLOGY & COAGULATION: Monitor H&H. Keep Hgb > 7 Transfuse 1 unit of PRBC for Hgb < 7 Transfuse 1 pack of platelets of platelets < 20, 000 Watch for any signs and symptoms of bleeding SKIN: Pressure ulcer prevention per facility protocol Specialty mattress as needed ORTHO/REHAB Continue PT/OT PRN: MEDICATIONS Tylenol 650 mg po every 4 hrs for fever zofran 4 mg IV every 6 hrs for n/v Hydralazine 5 mg IV every 4 hrs systolic pressure > 160 bowel regiment: lactulose 20 gm PO BID PRN constipation Supportive measures: Continue GI and DVT prophylaxis Disposition: Scheduled for AV fistula left upper extremity today in the OR All questions answered time spent: > 35 min CHRIS MARKS MD July 07, 2024 10:29
--- NOTE | 2024-07-07 11:40 | NUR ---
[facility] Follow-up: Patient re-assessed by wound healing team. Wound to left foot healed. See wound assessment. Assessment and recommendations provided to primary nurse. Education provided. Addendum: 07/07/24 at 1653 by MATT PEREZ RN RN/ Amended: Links added.
--- NOTE | 2024-07-07 12:31 | PN ---
GASTROENTEROLOGY PROGRESS NOTE Date of Visit: July 07, 2024 Time of Visit: 12:31 Events / Notes: No acute events overnight. Patient had EGD revealing mucosal changes suspicious for gastritis. Denies fever, chills, abdominal pain, N/V, hematemesis, bloating, constipation, diarrhea, melena or hematochezia. Review of Systems: CONSTITUTIONAL: No malaise or change in sensation of wellbeing. ENMT: No rhinorrhea, otorrhea, sinus pain, ear ache. CARDIOVASCULAR: No angina, palpitations, orthopnea or paroxysmal dyspnea. RESPIRATORY: No SOB. GASTROINTESTINAL: No abdominal pain, nausea, vomiting, diarrhea, hematemesis, melena or change in the patient's habitual bowel movements consistency/number. GENITOURINARY: No dysuria, hematuria or change in bladder continence. MUSCULOSKELETAL: No new muscle pain or decrease in muscular strength. No new joint swelling, redness or tenderness. SKIN: No new rash. Physical Exam: GEN: Awake, alert, oriented in person, time and place, and in no acute distress. HEENT: No sinus tenderness. Tympanic membranes were not examined. No rhinorrhea. Oral pharyngeal mucosa is pink, moist and within normal limits. Neck is supple with no cervical lymphadenopathy, thyromegaly or JVD. CHEST: Inspection, palpation and percussion of the chest were unremarkable. Lung auscultation revealed normal breath sounds bilaterally. CARDIAC: PMI is within normal limits. Heart sounds are regular. Normal S1, S2. No gallop or murmur. ABD: Soft, non-tender and not distended. No peritoneal signs on palpation. No organomegaly. Normal bowel sounds. EXT: No cyanosis or clubbing. No edema. SKIN: Intact. No rashes. JOINTS: No evidence of synovitis or acute arthritis. NEURO: Alert and oriented to name, place and person. Cranial nerve examination is unremarkable. No focal motor deficits. Normal speech. Gait is normal. Strength is normal. Vital Signs (last 8hr) Date Time Temp Pulse Resp B/P (MAP) Pulse Ox O2 Delivery O2 Flow Rate FiO2 07/07/24 10:53 97.3 70 16 141/63 100 Nasal Cannula 1.0 07/07/24 10:48 64 15 140/70 99 Nasal Cannula 1.0 07/07/24 10:43 68 15 141/67 99 Nasal Cannula 1.0 07/07/24 10:38 70 16 139/72 100 Nasal Cannula 2.0 07/07/24 10:33 71 16 134/71 100 Nasal Cannula 2.0 07/07/24 10:28 65 16 138/69 100 Nasal Cannula 2.0 07/07/24 10:23 68 18 129/67 100 Nasal Cannula 2.0 07/07/24 10:18 69 16 137/69 99 Nasal Cannula 3.0 07/07/24 10:13 71 17 136/64 97 Nonrebreathing Mask 10.0 07/07/24 10:08 68 18 141/73 98 Nonrebreathing Mask 10.0 07/07/24 10:03 66 17 139/67 97 Nonrebreathing Mask 10.0 07/07/24 09:58 68 15 129/73 97 Nonrebreathing Mask 10.0 07/07/24 09:53 97.5 67 14 136/69 98 Nonrebreathing Mask 10.0 Laboratory: [ ] Laboratory: Test 07/07/24 11:36 07/07/24 06:39 Range/Units Whole Blood Glucose 149 H 70-110 MG/DL White Blood Count 11.8 H 4.8-10.8 K/uL Red Blood Count 3.58 L 4.50-6.20 MIL/uL Hemoglobin 10.9 L 14.0-18.0 g/dL Hematocrit 31.8 L 42-54 % Mean Corpuscular Volume 88.8 79-99 fL Mean Corpuscular Hemoglobin 30.4 27.0-33.0 pg Mean Corpuscular Hemoglobin Concent 34.3 32.0-36.0 g/dL Red Cell Distribution Width 17.6 H 11.0-15.5 % Platelet Count 187 130-400 K/uL Mean Platelet Volume 10.9 H 7.5-10.5 fL Immature Granulocyte % (Auto) 0.7 0-1 % Neutrophils (%) (Auto) 84.2 H 40.0-77.0 % Lymphocytes (%) (Auto) 7.1 L 21.0-51.0 % Monocytes (%) (Auto) 7.7 3.0-13.0 % Eosinophils (%) (Auto) 0.2 0.0-8.0 % Basophils (%) (Auto) 0.1 0.0-5.0 % Neutrophils # (Auto) 9.9 H 1.8-7.7 K/uL Lymphocytes # (Auto) 0.8 L 1.0-4.8 K/uL Monocytes # (Auto) 0.9 0.1-1.0 K/uL Eosinophils # (Auto) 0.02 0.00-0.70 K/uL Basophils # (Auto) 0.01 0.00-0.20 K/uL Absolute Immature Granulocyte (auto 0.08 0-1 K/uL Nucleated Red Blood Cells 0.0 0.0-0.19 % Prothrombin Time 15.7 H 9.6-11.6 SEC Prothromb Time International Ratio 1.55 H 0.85-1.15 Activated Partial Thromboplast Time 38.6 H 26.3-35.5 SEC Sodium Level 135 L 136-145 mmol/L Potassium Level 3.3 L 3.5-5.1 mmol/L Chloride Level 98 L 101-111 mmol/L Carbon Dioxide Level 29 21-32 mmol/L Blood Urea Nitrogen 73 H 7-18 mg/dL Creatinine 3.6 H 0.5-1.3 mg/dL Glomerular Filtration Rate Calc 17 >90 mL/min Random Glucose 146 H 70-105 mg/dL Total Calcium 7.4 L 8.5-10.1 mg/dL Phosphorus Level 4.0 2.5-4.9 mg/dL Magnesium Level 2.20 1.80-2.40 mg/dL Total Bilirubin 1.1 H 0.2-1.0 mg/dL Aspartate Amino Transf (AST/SGOT) 29 10-37 U/L Alanine Aminotransferase (ALT/SGPT) 25 12-78 U/L Alkaline Phosphatase 230 H 50-136 U/L Total Protein 5.2 L 6.0-8.3 g/dL Albumin 2.1 L 3.5-5.0 g/dL Current Medications Medications (Trade) Dose Ordered Sig/Roderick Route PRN Reason Start Time Stop Time Status Last Admin Dose Admin Acetaminophen (TYLenol 325MG TAB) 650 mg Q6H PRN PO MILD PAIN (1-3) 07/04/24 01:00 07/07/24 08:34 DC 07/05/24 22:33 650 MG Acetaminophen (TYLenol 325MG TAB) 650 mg Q6H PRN PO MILD PAIN (1-3) 07/07/24 09:00 08/06/24 08:59 Albuterol Sulfate (Proventil 0.083% 2.5mg/3ml) 10 mg ONCE STAT IH 06/17/24 04:05 06/17/24 04:12 DC 06/17/24 04:31 10 MG Amiodarone HCl 360 mg/Dextrose 200 ml @ 0 mls/hr PROTOCOL IV 06/24/24 14:30 06/25/24 09:16 DC 06/24/24 15:51 33.33 MLS/HR Amiodarone HCl 540 mg/Dextrose 300 ml @ 0 mls/hr PROTOCOL IV 06/24/24 21:00 07/06/24 08:55 DC 06/24/24 20:42 16.7 MLS/HR Amlodipine Besylate (NorvASC 5MG TAB) 5 mg BID PO 06/22/24 09:00 07/22/24 08:59 07/06/24 21:06 5 MG Apixaban (EliquIS) 5 mg BID PO 06/24/24 14:30 06/30/24 19:54 DC 06/30/24 11:10 5 MG Calcium Carbonate (Tums 500 Mg Chew Tab) 500 tab ONCE PO 06/26/24 15:30 07/26/24 15:29 Cancel Calcium Carbonate (Tums 500 Mg Chew Tab) 500 tab ONCE PO 07/04/24 13:00 07/05/24 13:10 DC Calcium Carbonate (Tums 500 Mg Chew Tab) 500 tab Q6H6 PRN PO GI UPSET/UPSET STOMACH 06/28/24 12:00 07/28/24 11:59 07/06/24 23:07 1 TAB Calcium Gluconate (Calcium Gluc 1gm Vial) 1 gm AD STAT IV 06/17/24 04:05 06/17/24 04:12 DC 06/17/24 04:21 1 GM Cefepime HCl (MAXipime 1 GM vial) 0.25 gm Q24H IVPB 06/17/24 04:00 06/18/24 04:06 DC 06/17/24 04:58 0.25 GM Cefepime HCl (MAXipime 1 GM vial) 1 gm Q24H IVPB 06/20/24 05:00 06/22/24 16:09 DC 06/22/24 03:12 1 GM Cefepime HCl 0.25 gm/Sodium Chloride 50 ml @ 100 mls/hr Q24H IVPB 06/18/24 04:30 06/19/24 10:58 DC 06/19/24 05:26 100 MLS/HR Dextrose (D50w) 50 ml AD PRN IV HYPOGLYCEMIA PROTOCOL 06/17/24 01:00 06/17/24 01:01 DC Dextrose (D50w) 50 ml AD PRN IV HYPOGLYCEMIA PROTOCOL 06/17/24 01:00 07/17/24 00:59 07/06/24 18:01 50 ML Dextrose (D50w) 50 ml ONCE STAT IV 06/17/24 04:05 06/17/24 04:12 DC 06/17/24 04:21 50 ML Epoetin Rylan-epbx (Retacrit) 10,000 unit [id number] SQ 06/24/24 14:00 06/24/24 13:53 DC Epoetin Rylan-epbx (Retacrit) 10,000 unit QMOWEFR@1600 SQ 06/29/24 15:00 07/29/24 14:59 07/03/24 16:14 10,000 UNIT Epoetin Rylan-epbx (Retacrit) 10,000 unit QWEEK SQ 06/24/24 14:00 06/29/24 14:23 DC 06/24/24 14:37 10,000 UNIT Famotidine (Pepcid 20mg Vial) 20 mg Q48H IV 06/17/24 01:00 07/17/24 00:59 07/06/24 23:07 20 MG Folic Acid (FOLic ACID 1 MG TABLET) 1 mg DAILY PO 06/25/24 09:00 07/25/24 08:59 07/06/24 08:20 1 MG Furosemide (LASix 40MG VIAL) 40 mg Q12H IV 06/28/24 21:00 07/02/24 10:34 DC 07/02/24 09:05 40 MG Furosemide (LASix 40MG VIAL) 40 mg Q8H IV 06/19/24 18:30 06/20/24 18:31 DC 06/20/24 18:54 40 MG Glucagon (Glucagon 1mg Kit) 1 mg AD PRN IM HYPOGLYCEMIA PROTOCOL 06/17/24 01:00 06/17/24 01:01 DC Glucagon (Glucagon 1mg Kit) 1 mg AD PRN IM HYPOGLYCEMIA PROTOCOL 06/17/24 01:00 07/17/24 00:59 Heparin Sodium (Porcine) (HEParin 5,000 UNIT VIAL) 10,000 unit AD IRRIG 07/01/24 14:00 07/31/24 13:59 07/04/24 11:10 10,000 UNIT Hydralazine HCl ([id number] TAB) 25 mg TID PO 06/22/24 09:00 07/22/24 08:59 07/06/24 21:06 25 MG Hydrocortisone Sodium Succinate (Solu-corTEF 100MG) 50 mg ONCE@1930 IV 06/22/24 19:30 06/22/24 22:30 DC 06/22/24 19:59 50 MG Hydrocortisone Sodium Succinate (Solu-corTEF 100MG) 50 mg Q12H IV 07/03/24 21:00 07/06/24 21:56 DC 07/06/24 21:06 50 MG Hydrocortisone Sodium Succinate (Solu-corTEF 100MG) 50 mg Q24H IV 07/07/24 09:00 07/23/24 05:59 Hydrocortisone Sodium Succinate (Solu-corTEF 100MG) 50 mg Q8H IV 06/18/24 11:30 06/22/24 15:46 DC 06/22/24 03:12 50 MG Hydrocortisone Sodium Succinate (Solu-corTEF 100MG) 50 mg Q8H6 IV 06/23/24 06:00 07/03/24 20:49 DC 07/03/24 14:12 50 MG Hydromorphone HCl (DiLAUDid 0.5MG INJ) 0.5 mg Q4H PRN IVP SEVERE PAIN (7-10) 06/20/24 13:00 06/25/24 12:59 DC 06/21/24 23:50 0.5 MG Insulin Human Regular (humuLIN R 100 UNIT/ML 3ML) 10 unit ONCE STAT IV 06/17/24 04:05 06/17/24 04:12 DC 06/17/24 04:28 10 UNIT Insulin Human Regular (humuLIN R 100 UNIT/ML 3ML) INSULIN SLIDING SCAL... ACHS SQ 06/17/24 07:30 07/17/24 07:29 07/06/24 11:30 2 UNIT Lactated Ringer's 1,000 ml @ 130 mls/hr Q7H42M IV 06/21/24 09:30 06/28/24 09:51 DC 06/28/24 09:03 130 MLS/HR Lactobacillus Rhamnosus ([facility]) 1 each BID PO 06/28/24 10:00 07/28/24 09:59 07/06/24 21:07 1 EACH Leptospermum Honey (Medihoney) 1 appl DAILY TP 06/19/24 09:00 07/19/24 08:59 07/06/24 14:06 1 APPL Magnesium Sulfate 50 ml @ 0 mls/hr PROTOCOL PRN IV MAGNESIUM PROTOCOL 06/23/24 11:30 07/23/24 11:29 07/06/24 10:54 1.9 MLS/HR Metoprolol Tartrate (loprESSOR) 25 mg BID PO 06/24/24 14:30 07/24/24 14:29 07/06/24 21:06 25 MG Metronidazole/ Sodium Chloride (flaGYL) 500 mg Q8H IV 06/17/24 05:00 06/27/24 04:59 DC 06/26/24 21:48 500 MG Micafungin Sodium 100 ml @ 100 mls/hr Q24H IV 06/18/24 00:00 07/18/24 00:00 07/06/24 23:02 100 MLS/HR Morphine Sulfate (morPHINE 2MG SYG) 2 mg Q4H PRN IVP SEVERE PAIN (7-10) 06/29/24 00:30 07/01/24 16:10 DC 07/01/24 01:35 2 MG Norepinephrine 250 ml @ 0 mls/hr PROTOCOL IV 06/16/24 22:00 06/22/24 07:20 DC 06/17/24 05:33 24.5 MLS/HR Ondansetron HCl (zoFRAN 4MG INJ) 4 mg Q6H PRN IVP NAUSEA/VOMITING 06/23/24 20:30 07/23/24 20:29 07/02/24 16:33 4 MG Pharmacy Profile Note (Lace Assessment) 1 each AD MISC 06/19/24 15:30 06/20/24 12:49 DC Pharmacy Profile Note (Pharmacy Communication) 1 each ONCE MISC 06/17/24 23:00 06/19/24 07:13 DC 06/17/24 23:31 1 EACH Pharmacy Profile Note (Pharmacy Communication) 1 each ONCE MISC 06/22/24 16:30 06/23/24 07:22 DC Pharmacy Profile Note (Pharmacy Communication) 1 each ONCE MISC 06/30/24 12:30 06/30/24 12:08 DC Pharmacy Profile Note (Pharmacy Communication) 1 each ONCE MISC 06/30/24 14:30 06/30/24 14:16 DC Phenylephrine HCl 100 mg/Sodium Chloride 250 ml @ 0 mls/hr AD PRN IV TITRATE 06/17/24 10:30 06/22/24 07:20 DC 06/18/24 05:48 27 MLS/HR Piperacillin Sod/ Tazobactam Sod (Zosyn 3.375gm+NS 50ml) 3.375 gm Q12H IV 06/16/24 21:30 06/17/24 01:03 DC 06/16/24 21:42 3.375 GM Piperacillin Sod/ Tazobactam Sod (Zosyn 3.375gm+NS 50ml) 3.375 gm Q12H IVPB 06/17/24 01:00 06/17/24 04:00 DC 06/17/24 02:54 3.375 GM Potassium Chloride 100 ml @ 100 mls/hr AD PRN IV POTASSIUM PROTOCOL 06/21/24 08:00 07/21/24 07:59 07/01/24 05:21 100 MLS/HR Potassium Chloride 100 ml @ 100 mls/hr AD PRN IV POTASSIUM PROTOCOL 06/23/24 11:30 07/23/24 11:29 07/06/24 06:38 100 MLS/HR Potassium Chloride (K-Dur/Klor-Con 20meq) 20 meq AD PRN PO POTASSIUM PROTOCOL 06/23/24 11:30 07/23/24 11:29 07/05/24 05:23 20 MEQ Potassium Chloride (K-Dur/Klor-Con 20meq) 40 meq BID PO 06/22/24 09:00 06/22/24 21:01 DC 06/22/24 19:54 40 MEQ Potassium Chloride (K-Dur/Klor-Con 20meq) 40 meq BID PO 06/25/24 09:00 06/28/24 09:51 DC 06/27/24 09:23 40 MEQ Potassium Chloride (KCl 10% Elixir 20meq/15ml) 20 meq AD PRN PO POTASSIUM PROTOCOL 06/23/24 11:30 07/23/24 11:29 Sodium Bicarbonate / Dextrose 1,000 ml @ 0 mls/hr Q0M IVP 06/17/24 05:00 06/17/24 04:58 DC Sodium Bicarbonate 150 meq/Dextrose 1,150 ml @ 50 mls/hr Q23H IVP 06/18/24 08:00 06/19/24 12:24 DC 06/18/24 20:23 100 MLS/HR Sodium Bicarbonate 150 meq/Dextrose 1,150 ml @ 100 mls/hr [id number] IVP 06/17/24 05:00 06/18/24 04:44 DC 06/17/24 21:00 100 MLS/HR Sodium Polystyrene Sulfonate (kayEXALate 15 GM/60 ML) 15 gm Q2H PO 06/16/24 21:30 06/16/24 23:31 DC 06/16/24 22:21 15 GM Sodium Chloride 1,000 ml @ 0 mls/hr ONCE IV 07/01/24 14:00 07/31/24 13:59 07/04/24 11:09 100 MLS/HR Sodium Chloride 1,000 ml @ 150 mls/hr Q6H40M IV 06/16/24 23:00 06/17/24 09:10 DC 06/17/24 05:15 150 MLS/HR Sodium Chloride (NS 50ml) 50 ml AD IV 06/17/24 01:00 06/17/24 01:05 DC Sucralfate (Carafate) 1 gm BID PO 06/28/24 12:30 06/28/24 22:30 DC 06/28/24 20:56 1 GM Sucralfate (Carafate) 1 gm BID PO 07/03/24 09:00 08/02/24 08:59 07/06/24 21:07 1 GM Thiamine HCl (Vitamin B-1) 100 mg DAILY IVP 06/17/24 09:00 07/17/24 08:59 07/06/24 08:20 100 MG Tigecycline 100 mg/Sodium Chloride 100 ml @ 200 mls/hr ONCE IV 06/22/24 16:30 06/23/24 07:21 DC 06/22/24 18:51 200 MLS/HR Tigecycline 50 mg/ Sodium Chloride 100 ml @ 200 mls/hr BID@0600,1800 IV 06/23/24 06:00 06/30/24 05:59 DC 06/29/24 17:57 200 MLS/HR Tigecycline 50 mg/ Sodium Chloride 100 ml @ 200 mls/hr BID@0600,1800 IV 06/30/24 18:00 06/30/24 19:53 DC 06/30/24 19:50 200 MLS/HR Tigecycline 50 mg/ Sodium Chloride 100 ml @ 200 mls/hr BID@0800,2000 IV 07/01/24 08:00 07/10/24 07:59 07/06/24 21:06 200 MLS/HR Tramadol HCl (UltRAM) 25 mg Q6H PRN PO MODERATE PAIN (4-6) 07/07/24 09:00 07/12/24 08:59 Tramadol HCl (UltRAM) 50 mg Q6H PRN PO PAIN LEVEL 7 TO 10 07/07/24 09:00 07/12/24 08:59 Vancomycin HCl (Vancomycin 750mg) 750 mg Q96H IVPB 06/20/24 22:00 06/17/24 14:00 DC Vancomycin HCl (Vancomycin Protocol) 1 each AD IV 06/17/24 01:30 06/17/24 14:01 DC Vitamin B Complex/ Vit C/Folic Acid (Nephrovite Tablet) 1 cap DAILY PO 06/24/24 09:00 07/24/24 08:59 07/06/24 08:19 1 CAP Wound Care/ Dressing Products (Venelex Ointment) 1 APPL BID TP 06/28/24 21:00 07/28/24 20:59 07/06/24 22:17 1 GM Diagnostics / Radiology: [COPY/PASTE HERE IF NO REPORTS PLEASE DELETE SECTION] Assessment: Gastritis Acute blood loss anemia HTN DM Plan: Patient defers Colonoscopy Continue GI prophylaxis Advance diet as tolerated Avoid NSAIDs Antireflux measures Monitor H&H and transfuse as needed Call with questions, concerns or change in clinical status Patient to follow-up at clinic post discharge Thank you for this consult ANGEL BURDENP July 07, 2024 12:31
--- NOTE | 2024-07-07 14:04 | NUR ---
HD Chair Time MWF @4:30PM US Renal on [facility] in [place].
--- NOTE | 2024-07-07 17:21 | PN ---
INFECTIOUS DISEASE PROGRESS NOTE Date of Service: July 07, 2024 SUBJECTIVE: This is a 69 year old male patient who was seen and examined at bedside in room 224. Hemodialysis session in process during visit today. Patient is status post brachiocephalic-basilic AV fistula today. Patient is afebrile, temperature is 97.9�. We will continue on tigecycline IV and micafungin. No other issues reported by nursing. PHYSICAL EXAM EYES: Anicteric. Pupils equal and reactive. HENT: No oral thrush seen, moist Oral mucosa. NECK: Supple, no JVD or thyromegaly. LUNGS: Good air entry. No rales, no rhonchi. CARDIOVASCULAR: S1, S2 regular. No murmur heard. ABDOMEN: Soft, non tender, bowel sounds present, no organomegaly. CENTRAL NERVOUS SYSTEM: Awake, alert, oriented x 2. SKIN: No rashes, no swelling. LYMPHATICS: No peripheral lymphadenopathy. MUSCULOSKELETAL: No joint swelling, erythema or tenderness. EXTREMITIES: No cyanosis or clubbing. 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 BACK: No deformity, no pressure ulcer. GENITOURINARY: No dysuria or hematuria. Vital Sign (Last 12 Hours) 07/07/24 07/07/24 07/07/24 07/07/24 07:20 09:53 09:58 10:03 Temp 97.5 Pulse 67 68 66 Resp 14 15 17 B/P (MAP) 136/69 129/73 139/67 Pulse Ox 95 98 97 97 O2 Delivery Room Air* Nonrebreathing Mask Nonrebreathing Mask Nonrebreathing M ask O2 Flow Rate 0 10.0 10.0 10.0 FiO2 21 07/07/24 07/07/24 07/07/24 07/07/24 10:08 10:13 10:18 10:23 Pulse 68 71 69 68 Resp 18 17 16 18 B/P (MAP) 141/73 136/64 137/69 129/67 Pulse Ox 98 97 99 100 O2 Delivery Nonrebreathing Mask Nonrebreathing Mask Nasal Cannula Nasal Cannula O2 Flow Rate 10.0 10.0 3.0 2.0 07/07/24 07/07/24 07/07/24 07/07/24 10:28 10:33 10:38 10:43 Pulse 65 71 70 68 Resp 16 16 16 15 B/P (MAP) 138/69 134/71 139/72 141/67 Pulse Ox 100 100 100 99 O2 Delivery Nasal Cannula Nasal Cannula Nasal Cannula Nasal Cannula O2 Flow Rate 2.0 2.0 2.0 1.0 07/07/24 07/07/24 07/07/24 07/07/24 10:48 10:53 11:00 11:15 Temp 97.3 97.9 97.9 Pulse 64 70 59 58 Resp 15 16 18 18 B/P (MAP) 140/70 141/63 141/59 136/62 Pulse Ox 99 100 96 96 O2 Delivery Nasal Cannula Nasal Cannula Room Air Room Air O2 Flow Rate 1.0 1.0 07/07/24 07/07/24 07/07/24 07/07/24 11:30 11:45 12:00 12:30 Temp 97.9 Pulse 59 65 76 61 Resp 18 18 18 18 B/P (MAP) 131/68 121/64 152/73 149/66 Pulse Ox 98 99 98 99 O2 Delivery Room Air Room Air Room Air Room Air 07/07/24 07/07/24 07/07/24 07/07/24 13:00 14:00 14:00 14:08 Temp 97.9 97.9 97.9 Pulse 64 72 72 75 Resp 18 14 18 16 B/P (MAP) 146/69 139/73 142/62 139/65 Pulse Ox 96 95 O2 Delivery Room Air Room Air Room Air Room Air 07/07/24 07/07/24 07/07/24 07/07/24 14:15 14:30 14:45 15:00 Pulse 68 69 69 68 Resp 14 14 14 14 B/P (MAP) 138/69 139/70 125/70 120/70 O2 Delivery Room Air Room Air Room Air Room Air 07/07/24 07/07/24 07/07/24 07/07/24 15:15 15:30 15:45 16:00 Pulse 66 73 75 75 Resp 14 14 14 14 B/P (MAP) 126/62 113/64 125/65 116/64 O2 Delivery Room Air Room Air Room Air Room Air 07/07/24 07/07/24 07/07/24 07/07/24 16:15 16:30 16:45 16:49 Temp 98.1 Pulse 76 80 73 66 Resp 14 14 14 18 B/P (MAP) 126/54 120/56 101/62 110/64 Pulse Ox 93 O2 Delivery Room Air Room Air Room Air Room Air 07/07/24 07/07/24 17:00 17:08 Temp 97.2 Pulse 77 Resp 14 B/P (MAP) 98/55 O2 Delivery Room Air Intake & Output (last 24hrs) 07/06/24 07/06/24 07/07/24 15:00 23:00 07:00 Intake Total 240 ml 200.0 ml 100.0 ml Output Total 600 ml 400 ml Balance 240 ml -400.0 ml -300.0 ml LABS: Laboratory: Test 07/07/24 15:36 07/07/24 06:39 Range/Units Whole Blood Glucose 148 H 70-110 MG/DL White Blood Count 11.8 H 4.8-10.8 K/uL Red Blood Count 3.58 L 4.50-6.20 MIL/uL Hemoglobin 10.9 L 14.0-18.0 g/dL Hematocrit 31.8 L 42-54 % Mean Corpuscular Volume 88.8 79-99 fL Mean Corpuscular Hemoglobin 30.4 27.0-33.0 pg Mean Corpuscular Hemoglobin Concent 34.3 32.0-36.0 g/dL Red Cell Distribution Width 17.6 H 11.0-15.5 % Platelet Count 187 130-400 K/uL Mean Platelet Volume 10.9 H 7.5-10.5 fL Immature Granulocyte % (Auto) 0.7 0-1 % Neutrophils (%) (Auto) 84.2 H 40.0-77.0 % Lymphocytes (%) (Auto) 7.1 L 21.0-51.0 % Monocytes (%) (Auto) 7.7 3.0-13.0 % Eosinophils (%) (Auto) 0.2 0.0-8.0 % Basophils (%) (Auto) 0.1 0.0-5.0 % Neutrophils # (Auto) 9.9 H 1.8-7.7 K/uL Lymphocytes # (Auto) 0.8 L 1.0-4.8 K/uL Monocytes # (Auto) 0.9 0.1-1.0 K/uL Eosinophils # (Auto) 0.02 0.00-0.70 K/uL Basophils # (Auto) 0.01 0.00-0.20 K/uL Absolute Immature Granulocyte (auto 0.08 0-1 K/uL Nucleated Red Blood Cells 0.0 0.0-0.19 % Prothrombin Time 15.7 H 9.6-11.6 SEC Prothromb Time International Ratio 1.55 H 0.85-1.15 Activated Partial Thromboplast Time 38.6 H 26.3-35.5 SEC Sodium Level 135 L 136-145 mmol/L Potassium Level 3.3 L 3.5-5.1 mmol/L Chloride Level 98 L 101-111 mmol/L Carbon Dioxide Level 29 21-32 mmol/L Blood Urea Nitrogen 73 H 7-18 mg/dL Creatinine 3.6 H 0.5-1.3 mg/dL Glomerular Filtration Rate Calc 17 >90 mL/min Random Glucose 146 H 70-105 mg/dL Total Calcium 7.4 L 8.5-10.1 mg/dL Phosphorus Level 4.0 2.5-4.9 mg/dL Magnesium Level 2.20 1.80-2.40 mg/dL Total Bilirubin 1.1 H 0.2-1.0 mg/dL Aspartate Amino Transf (AST/SGOT) 29 10-37 U/L Alanine Aminotransferase (ALT/SGPT) 25 12-78 U/L Alkaline Phosphatase 230 H 50-136 U/L Total Protein 5.2 L 6.0-8.3 g/dL Albumin 2.1 L 3.5-5.0 g/dL ASSESSMENT: Fungemia. 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 Septic shock, resolving. Anemia requiring blood transfusion, status post EGD. Acute renal failure, new onset dialysis. Status post AV fistula placement. PLAN: Continue tigecycline IV. Continue micafungin. Continue wound care. Continue pain management. Continue dialysis as recommended by Field Service Coordinator. This case was reviewed and discussed with my supervising physician and the above assessment and plan was formulated and agreed upon. ATTESTATION BY PHYSICIAN I have seen and examined the patient. I reviewed the documentation, medical decision making, and treatment plan as noted by the mid-level provider above. I agree with the findings and plan of care. CECIL ROY MD, [facility] July 07, 2024 17:21
--- NOTE | 2024-07-07 22:55 | PN ---
NEPHROLOGY NOTE SUBJECTIVE: The patient has been evaluated and seen for dialysis. Seen several times today. No fevers, chills, or rigors. No cough,expectoration, or hemoptysis. No abdominal pain. No nausea or vomiting. No chest pain or orthopnea. Other systemic review is unchanged. The patient was seen and seen for dialysis multiple times. PHYSICAL EXAMINATION: GENERAL: ____. VITAL SIGNS: Blood pressure has been around low up to 101/62, pulse 73, respiratory rate is 80 and afebrile. HEENT: Head is atraumatic. Pupils are round and reactive. Sclerae are anicteric. Conjunctivae not pale. Oral mucosa is not dry. NECK: Without masses or bruits. Thyroid is palpable. Neck has no bruit. CHEST: Chest shows equal thoracic percussion note being resonant in all areas. CARDIAC: Regular rhythm. No rubs. No S3, S4, no parasternal heave. LABORATORY DATA: Labs have been reviewed and old records reviewed. PROBLEMS: * Renal failure. * Anemia. * Multiple other comorbidities. PLAN: Plan is to continue dialysis support. Continue monitoring of renal function. Continue monitoring of electrolytes and blood pressure, as needed IV albumin. The patient was seen and seen for dialysis multiple times. I will continue to monitor and follow closely. TID: [id number] RECEIPT: [id number]
--- NOTE | 2024-07-07 23:11 | PN ---
NEPHROLOGY NOTE SUBJECTIVE: This patient has been evaluated and seen for dialysis. Seen several times. The patient has renal failure, hypotension, generalized weakness, new AV axis. No other localizing findings. No fever, chills or rigors. No cough, expectoration or hemoptysis. No abdominal pain. No nausea or vomiting. PHYSICAL EXAMINATION: GENERAL: Pale, no other distress or deformities. Lying in bed. VITAL SIGNS: Blood pressure is 138/70. Respiratory rate is 18. Afebrile. HEENT: Head is atraumatic, normocephalic. Pupils are round and reactive. Sclerae are anicteric. Conjunctivae not pale. Oral mucosa is not dry. NECK: Without masses or bruits. Thyroid is palpable. Neck has no bruits. LABORATORY DATA: Labs have been reviewed and old records reviewed. Imaging studies are reviewed. Hemoglobin and hematocrit is noted. IMAGING STUDIES: Imaging studies are reviewed. PROBLEMS: * Renal failure, end-stage. * Anemia. * Hypotension. * Electrolyte problem. PLAN: Plan will be to continue monitoring, followup on renal function, followup on electrolyte. The patient was evaluated and seen several times today. I have discussed with the other team members. Followup labs have been noted. TID: [id number] RECEIPT: [id number]
[2024-07-08 01:00] VITALS: BP 128/60; PULSE 68; RESP 18; TEMP 98.1
[2024-07-08] MEDS: PROMETHAZINE HCL 25 MG/ML 1ML AMPULE IM PRN (01:16)
[2024-07-08 04:00] VITALS: BP 118/62; PULSE 65; RESP 18; TEMP 98.1
[2024-07-08 06:07] LABS: HEMATOCRIT 32.5 % (42-54); MEAN CORPUSCULAR HEMOGLOBIN 30.4 pg (27.0-33.0); MEAN CORPUSCULAR HGB CONC 34.5 g/dL (32.0-36.0); MEAN CORPUSCULAR VOLUME 88.3 fL (79-99); PLATELET COUNT (AUTO) 153 K/uL (130-400); RED BLOOD CELL COUNT(AUTO) 3.68 MIL/uL (4.50-6.20); WHITE BLOOD COUNT (AUTO) 12.9 K/uL (4.8-10.8)
[2024-07-08 06:44] LABS: ALBUMIN 2.2 g/dL (3.5-5.0); BILIRUBIN,TOTAL 1.1 mg/dL (0.2-1.0); CREATININE 3.1 mg/dL (0.5-1.3); TOTAL PROTEIN, SERUM 5.4 g/dL (6.0-8.3)
[2024-07-08 08:00] VITALS: O2SAT 97
[2024-07-08 08:30] VITALS: BP 121/72; PULSE 73; RESP 18; TEMP 97.5
--- NOTE | 2024-07-08 11:14 | PN ---
GASTROENTEROLOGY PROGRESS NOTE Date of Visit: July 08, 2024 Time of Visit: 11:14 Events / Notes: No acute events overnight. Patient had EGD revealing mucosal changes suspicious for gastritis. Denies fever, chills, abdominal pain, N/V, hematemesis, bloating, constipation, diarrhea, melena or hematochezia. Review of Systems: CONSTITUTIONAL: No malaise or change in sensation of wellbeing. ENMT: No rhinorrhea, otorrhea, sinus pain, ear ache. CARDIOVASCULAR: No angina, palpitations, orthopnea or paroxysmal dyspnea. RESPIRATORY: No SOB. GASTROINTESTINAL: No abdominal pain, nausea, vomiting, diarrhea, hematemesis, melena or change in the patient's habitual bowel movements consistency/number. GENITOURINARY: No dysuria, hematuria or change in bladder continence. MUSCULOSKELETAL: No new muscle pain or decrease in muscular strength. No new joint swelling, redness or tenderness. SKIN: No new rash. Physical Exam: GEN: Awake, alert, oriented in person, time and place, and in no acute distress. HEENT: No sinus tenderness. Tympanic membranes were not examined. No rhinorrhea. Oral pharyngeal mucosa is pink, moist and within normal limits. Neck is supple with no cervical lymphadenopathy, thyromegaly or JVD. CHEST: Inspection, palpation and percussion of the chest were unremarkable. Lung auscultation revealed normal breath sounds bilaterally. CARDIAC: PMI is within normal limits. Heart sounds are regular. Normal S1, S2. No gallop or murmur. ABD: Soft, non-tender and not distended. No peritoneal signs on palpation. No organomegaly. Normal bowel sounds. EXT: No cyanosis or clubbing. No edema. SKIN: Intact. No rashes. JOINTS: No evidence of synovitis or acute arthritis. NEURO: Alert and oriented to name, place and person. Cranial nerve examination is unremarkable. No focal motor deficits. Normal speech. Gait is normal. Strength is normal. Vital Signs (last 8hr) Date Time Temp Pulse Resp B/P (MAP) Pulse Ox O2 Delivery O2 Flow Rate FiO2 07/08/24 08:30 97.5 73 18 121/72 98 Room Air 07/08/24 08:00 97 Room Air* 0 21 07/08/24 04:00 98.1 65 18 118/62 97 Room Air Laboratory: [ ] Laboratory: Test 07/08/24 06:32 07/08/24 05:45 07/07/24 06:39 Range/Units Whole Blood Glucose 213 H 70-110 MG/DL White Blood Count 12.9 H 4.8-10.8 K/uL Red Blood Count 3.68 L 4.50-6.20 MIL/uL Hemoglobin 11.2 L 14.0-18.0 g/dL Hematocrit 32.5 L 42-54 % Mean Corpuscular Volume 88.3 79-99 fL Mean Corpuscular Hemoglobin 30.4 27.0-33.0 pg Mean Corpuscular Hemoglobin Concent 34.5 32.0-36.0 g/dL Red Cell Distribution Width 18.0 H 11.0-15.5 % Platelet Count 153 130-400 K/uL Mean Platelet Volume 11.9 H 7.5-10.5 fL Nucleated Red Blood Cells 0.0 0.0-0.19 % Red Blood Cell Morphology See comments Sodium Level 136 136-145 mmol/L Potassium Level 4.0 3.5-5.1 mmol/L Chloride Level 98 L 101-111 mmol/L Carbon Dioxide Level 26 21-32 mmol/L Blood Urea Nitrogen 52 #H 7-18 mg/dL Creatinine 3.1 H 0.5-1.3 mg/dL Glomerular Filtration Rate Calc 21 >90 mL/min Random Glucose 212 H 70-105 mg/dL Total Calcium 7.8 L 8.5-10.1 mg/dL Magnesium Level 2.00 1.80-2.40 mg/dL Total Bilirubin 1.1 H 0.2-1.0 mg/dL Aspartate Amino Transf (AST/SGOT) 24 10-37 U/L Alanine Aminotransferase (ALT/SGPT) 22 12-78 U/L Alkaline Phosphatase 229 H 50-136 U/L Total Protein 5.4 L 6.0-8.3 g/dL Albumin 2.2 L 3.5-5.0 g/dL Immature Granulocyte % (Auto) 0.7 0-1 % Neutrophils (%) (Auto) 84.2 H 40.0-77.0 % Lymphocytes (%) (Auto) 7.1 L 21.0-51.0 % Monocytes (%) (Auto) 7.7 3.0-13.0 % Eosinophils (%) (Auto) 0.2 0.0-8.0 % Basophils (%) (Auto) 0.1 0.0-5.0 % Neutrophils # (Auto) 9.9 H 1.8-7.7 K/uL Lymphocytes # (Auto) 0.8 L 1.0-4.8 K/uL Monocytes # (Auto) 0.9 0.1-1.0 K/uL Eosinophils # (Auto) 0.02 0.00-0.70 K/uL Basophils # (Auto) 0.01 0.00-0.20 K/uL Absolute Immature Granulocyte (auto 0.08 0-1 K/uL Prothrombin Time 15.7 H 9.6-11.6 SEC Prothromb Time International Ratio 1.55 H 0.85-1.15 Activated Partial Thromboplast Time 38.6 H 26.3-35.5 SEC Phosphorus Level 4.0 2.5-4.9 mg/dL Current Medications Medications (Trade) Dose Ordered Sig/Roderick Route PRN Reason Start Time Stop Time Status Last Admin Dose Admin Acetaminophen (TYLenol 325MG TAB) 650 mg Q6H PRN PO MILD PAIN (1-3) 07/04/24 01:00 07/07/24 08:34 DC 07/05/24 22:33 650 MG Acetaminophen (TYLenol 325MG TAB) 650 mg Q6H PRN PO MILD PAIN (1-3) 07/07/24 09:00 08/06/24 08:59 Albuterol Sulfate (Proventil 0.083% 2.5mg/3ml) 10 mg ONCE STAT IH 06/17/24 04:05 06/17/24 04:12 DC 06/17/24 04:31 10 MG Amiodarone HCl 360 mg/Dextrose 200 ml @ 0 mls/hr PROTOCOL IV 06/24/24 14:30 06/25/24 09:16 DC 06/24/24 15:51 33.33 MLS/HR Amiodarone HCl 540 mg/Dextrose 300 ml @ 0 mls/hr PROTOCOL IV 06/24/24 21:00 07/06/24 08:55 DC 06/24/24 20:42 16.7 MLS/HR Amlodipine Besylate (NorvASC 5MG TAB) 5 mg BID PO 06/22/24 09:00 07/22/24 08:59 07/08/24 10:35 5 MG Apixaban (EliquIS) 5 mg BID PO 06/24/24 14:30 06/30/24 19:54 DC 06/30/24 11:10 5 MG Calcium Carbonate (Tums 500 Mg Chew Tab) 500 tab ONCE PO 06/26/24 15:30 07/26/24 15:29 Cancel Calcium Carbonate (Tums 500 Mg Chew Tab) 500 tab ONCE PO 07/04/24 13:00 07/05/24 13:10 DC Calcium Carbonate (Tums 500 Mg Chew Tab) 500 tab Q6H6 PRN PO GI UPSET/UPSET STOMACH 06/28/24 12:00 07/28/24 11:59 07/08/24 10:53 500 TAB Calcium Gluconate (Calcium Gluc 1gm Vial) 1 gm AD STAT IV 06/17/24 04:05 06/17/24 04:12 DC 06/17/24 04:21 1 GM Cefepime HCl (MAXipime 1 GM vial) 0.25 gm Q24H IVPB 06/17/24 04:00 06/18/24 04:06 DC 06/17/24 04:58 0.25 GM Cefepime HCl (MAXipime 1 GM vial) 1 gm Q24H IVPB 06/20/24 05:00 06/22/24 16:09 DC 06/22/24 03:12 1 GM Cefepime HCl 0.25 gm/Sodium Chloride 50 ml @ 100 mls/hr Q24H IVPB 06/18/24 04:30 06/19/24 10:58 DC 06/19/24 05:26 100 MLS/HR Dextrose (D50w) 50 ml AD PRN IV HYPOGLYCEMIA PROTOCOL 06/17/24 01:00 06/17/24 01:01 DC Dextrose (D50w) 50 ml AD PRN IV HYPOGLYCEMIA PROTOCOL 06/17/24 01:00 07/17/24 00:59 07/06/24 18:01 50 ML Dextrose (D50w) 50 ml ONCE STAT IV 06/17/24 04:05 06/17/24 04:12 DC 06/17/24 04:21 50 ML Epoetin Rylan-epbx (Retacrit) 10,000 unit [id number] SQ 06/24/24 14:00 06/24/24 13:53 DC Epoetin Rylan-epbx (Retacrit) 10,000 unit QMOWEFR@1600 SQ 06/29/24 15:00 07/29/24 14:59 07/03/24 16:14 10,000 UNIT Epoetin Rylan-epbx (Retacrit) 10,000 unit QWEEK SQ 06/24/24 14:00 06/29/24 14:23 DC 06/24/24 14:37 10,000 UNIT Famotidine (Pepcid 20mg Vial) 20 mg Q48H IV 06/17/24 01:00 07/17/24 00:59 07/06/24 23:07 20 MG Folic Acid (FOLic ACID 1 MG TABLET) 1 mg DAILY PO 06/25/24 09:00 07/25/24 08:59 07/08/24 10:35 1 MG Furosemide (LASix 40MG VIAL) 40 mg Q12H IV 06/28/24 21:00 07/02/24 10:34 DC 07/02/24 09:05 40 MG Furosemide (LASix 40MG VIAL) 40 mg Q8H IV 06/19/24 18:30 06/20/24 18:31 DC 06/20/24 18:54 40 MG Glucagon (Glucagon 1mg Kit) 1 mg AD PRN IM HYPOGLYCEMIA PROTOCOL 06/17/24 01:00 06/17/24 01:01 DC Glucagon (Glucagon 1mg Kit) 1 mg AD PRN IM HYPOGLYCEMIA PROTOCOL 06/17/24 01:00 07/17/24 00:59 Heparin Sodium (Porcine) (HEParin 5,000 UNIT VIAL) 10,000 unit AD IRRIG 07/01/24 14:00 07/31/24 13:59 07/07/24 21:33 10,000 UNIT Hydralazine HCl ([id number] TAB) 25 mg TID PO 06/22/24 09:00 07/22/24 08:59 07/08/24 10:42 25 MG Hydrocortisone Sodium Succinate (Solu-corTEF 100MG) 50 mg ONCE@1930 IV 06/22/24 19:30 06/22/24 22:30 DC 06/22/24 19:59 50 MG Hydrocortisone Sodium Succinate (Solu-corTEF 100MG) 50 mg Q12H IV 07/03/24 21:00 07/06/24 21:56 DC 07/06/24 21:06 50 MG Hydrocortisone Sodium Succinate (Solu-corTEF 100MG) 50 mg Q24H IV 07/07/24 09:00 07/08/24 10:23 DC Hydrocortisone Sodium Succinate (Solu-corTEF 100MG) 50 mg Q8H IV 06/18/24 11:30 06/22/24 15:46 DC 06/22/24 03:12 50 MG Hydrocortisone Sodium Succinate (Solu-corTEF 100MG) 50 mg Q8H6 IV 06/23/24 06:00 07/03/24 20:49 DC 07/03/24 14:12 50 MG Hydromorphone HCl (DiLAUDid 0.5MG INJ) 0.5 mg Q4H PRN IVP SEVERE PAIN (7-10) 06/20/24 13:00 06/25/24 12:59 DC 06/21/24 23:50 0.5 MG Insulin Human Regular (humuLIN R 100 UNIT/ML 3ML) 10 unit ONCE STAT IV 06/17/24 04:05 06/17/24 04:12 DC 06/17/24 04:28 10 UNIT Insulin Human Regular (humuLIN R 100 UNIT/ML 3ML) INSULIN SLIDING SCAL... ACHS SQ 06/17/24 07:30 07/17/24 07:29 07/08/24 07:08 3 UNIT Lactated Ringer's 1,000 ml @ 130 mls/hr Q7H42M IV 06/21/24 09:30 06/28/24 09:51 DC 06/28/24 09:03 130 MLS/HR Lactobacillus Rhamnosus ([facility]) 1 each BID PO 06/28/24 10:00 07/28/24 09:59 07/08/24 10:35 1 EACH Leptospermum Honey ([facility]) 1 appl DAILY TP 06/19/24 09:00 07/19/24 08:59 07/08/24 10:36 1 APPL Magnesium Sulfate 50 ml @ 0 mls/hr PROTOCOL PRN IV MAGNESIUM PROTOCOL 06/23/24 11:30 07/23/24 11:29 07/06/24 10:54 1.9 MLS/HR Metoprolol Tartrate (loprESSOR) 25 mg BID PO 06/24/24 14:30 07/24/24 14:29 07/08/24 10:36 25 MG Metronidazole/ Sodium Chloride (flaGYL) 500 mg Q8H IV 06/17/24 05:00 06/27/24 04:59 DC 06/26/24 21:48 500 MG Micafungin Sodium 100 ml @ 100 mls/hr Q24H IV 06/18/24 00:00 07/18/24 00:00 07/08/24 00:52 100 MLS/HR Morphine Sulfate (morPHINE 2MG SYG) 2 mg Q4H PRN IVP SEVERE PAIN (7-10) 06/29/24 00:30 07/01/24 16:10 DC 07/01/24 01:35 2 MG Norepinephrine 250 ml @ 0 mls/hr PROTOCOL IV 06/16/24 22:00 06/22/24 07:20 DC 06/17/24 05:33 24.5 MLS/HR Ondansetron HCl (zoFRAN 4MG INJ) 4 mg Q6H PRN IVP NAUSEA/VOMITING 06/23/24 20:30 07/23/24 20:29 07/07/24 22:33 4 MG Pharmacy Profile Note (Lace Assessment) 1 each AD MISC 06/19/24 15:30 06/20/24 12:49 DC Pharmacy Profile Note (Pharmacy Communication) 1 each ONCE MISC 06/17/24 23:00 06/19/24 07:13 DC 06/17/24 23:31 1 EACH Pharmacy Profile Note (Pharmacy Communication) 1 each ONCE MISC 06/22/24 16:30 06/23/24 07:22 DC Pharmacy Profile Note (Pharmacy Communication) 1 each ONCE MISC 06/30/24 12:30 06/30/24 12:08 DC Pharmacy Profile Note (Pharmacy Communication) 1 each ONCE MISC 06/30/24 14:30 06/30/24 14:16 DC Phenylephrine HCl 100 mg/Sodium Chloride 250 ml @ 0 mls/hr AD PRN IV TITRATE 06/17/24 10:30 06/22/24 07:20 DC 06/18/24 05:48 27 MLS/HR Piperacillin Sod/ Tazobactam Sod (Zosyn 3.375gm+NS 50ml) 3.375 gm Q12H IV 06/16/24 21:30 06/17/24 01:03 DC 06/16/24 21:42 3.375 GM Piperacillin Sod/ Tazobactam Sod (Zosyn 3.375gm+NS 50ml) 3.375 gm Q12H IVPB 06/17/24 01:00 06/17/24 04:00 DC 06/17/24 02:54 3.375 GM Potassium Chloride 100 ml @ 100 mls/hr AD PRN IV POTASSIUM PROTOCOL 06/21/24 08:00 07/21/24 07:59 07/01/24 05:21 100 MLS/HR Potassium Chloride 100 ml @ 100 mls/hr AD PRN IV POTASSIUM PROTOCOL 06/23/24 11:30 07/23/24 11:29 07/06/24 06:38 100 MLS/HR Potassium Chloride (K-Dur/Klor-Con 20meq) 20 meq AD PRN PO POTASSIUM PROTOCOL 06/23/24 11:30 07/23/24 11:29 07/05/24 05:23 20 MEQ Potassium Chloride (K-Dur/Klor-Con 20meq) 40 meq BID PO 06/22/24 09:00 06/22/24 21:01 DC 06/22/24 19:54 40 MEQ Potassium Chloride (K-Dur/Klor-Con 20meq) 40 meq BID PO 06/25/24 09:00 06/28/24 09:51 DC 06/27/24 09:23 40 MEQ Potassium Chloride (KCl 10% Elixir 20meq/15ml) 20 meq AD PRN PO POTASSIUM PROTOCOL 06/23/24 11:30 07/23/24 11:29 Promethazine HCl (Phenergan) 25 mg Q6H PRN IM NAUSEA/VOMITING 07/08/24 01:30 08/07/24 01:29 07/08/24 01:16 25 MG Sodium Bicarbonate / Dextrose 1,000 ml @ 0 mls/hr Q0M IVP 06/17/24 05:00 06/17/24 04:58 DC Sodium Bicarbonate 150 meq/Dextrose 1,150 ml @ 50 mls/hr Q23H IVP 06/18/24 08:00 06/19/24 12:24 DC 06/18/24 20:23 100 MLS/HR Sodium Bicarbonate 150 meq/Dextrose 1,150 ml @ 100 mls/hr [id number] IVP 06/17/24 05:00 06/18/24 04:44 DC 06/17/24 21:00 100 MLS/HR Sodium Polystyrene Sulfonate (kayEXALate 15 GM/60 ML) 15 gm Q2H PO 06/16/24 21:30 06/16/24 23:31 DC 06/16/24 22:21 15 GM Sodium Chloride 1,000 ml @ 0 mls/hr ONCE IV 07/01/24 14:00 07/31/24 13:59 07/07/24 16:48 1,000 MLS/HR Sodium Chloride 1,000 ml @ 150 mls/hr Q6H40M IV 06/16/24 23:00 06/17/24 09:10 DC 06/17/24 05:15 150 MLS/HR Sodium Chloride (NS 50ml) 50 ml AD IV 06/17/24 01:00 06/17/24 01:05 DC Sucralfate (Carafate) 1 gm BID PO 06/28/24 12:30 06/28/24 22:30 DC 06/28/24 20:56 1 GM Sucralfate (Carafate) 1 gm BID PO 07/03/24 09:00 08/02/24 08:59 07/08/24 10:35 1 GM Thiamine HCl (Vitamin B-1) 100 mg DAILY IVP 06/17/24 09:00 07/17/24 08:59 07/08/24 10:35 100 MG Tigecycline 100 mg/Sodium Chloride 100 ml @ 200 mls/hr ONCE IV 06/22/24 16:30 06/23/24 07:21 DC 06/22/24 18:51 200 MLS/HR Tigecycline 50 mg/ Sodium Chloride 100 ml @ 200 mls/hr BID@0600,1800 IV 06/23/24 06:00 06/30/24 05:59 DC 06/29/24 17:57 200 MLS/HR Tigecycline 50 mg/ Sodium Chloride 100 ml @ 200 mls/hr BID@0600,1800 IV 06/30/24 18:00 06/30/24 19:53 DC 06/30/24 19:50 200 MLS/HR Tigecycline 50 mg/ Sodium Chloride 100 ml @ 200 mls/hr BID@0800,2000 IV 07/01/24 08:00 07/10/24 07:59 07/08/24 10:35 200 MLS/HR Tramadol HCl (UltRAM) 25 mg Q6H PRN PO MODERATE PAIN (4-6) 07/07/24 09:00 07/12/24 08:59 Tramadol HCl (UltRAM) 50 mg Q6H PRN PO PAIN LEVEL 7 TO 10 07/07/24 09:00 07/12/24 08:59 Vancomycin HCl (Vancomycin 750mg) 750 mg Q96H IVPB 06/20/24 22:00 06/17/24 14:00 DC Vancomycin HCl (Vancomycin Protocol) 1 each AD IV 06/17/24 01:30 06/17/24 14:01 DC Vitamin B Complex/ Vit C/Folic Acid (Nephrovite Tablet) 1 cap DAILY PO 06/24/24 09:00 07/24/24 08:59 07/08/24 10:35 1 CAP Wound Care/ Dressing Products (Venelex Ointment) 1 APPL BID TP 06/28/24 21:00 07/28/24 20:59 07/08/24 10:37 60 GM Diagnostics / Radiology: [COPY/PASTE HERE IF NO REPORTS PLEASE DELETE SECTION] Assessment: Gastritis Acute blood loss anemia HTN DM Plan: Patient defers Colonoscopy Continue GI prophylaxis Advance diet as tolerated Avoid NSAIDs Antireflux measures Monitor H&H and transfuse as needed Call with questions, concerns or change in clinical status Patient to follow-up at clinic post discharge Thank you for this consult ANGEL BURDEN July 08, 2024 11:14
[2024-07-08 12:00] VITALS: BP 124/59; PULSE 64; RESP 16; TEMP 97.6
--- NOTE | 2024-07-08 13:09 | PN ---
NEPHROLOGY PROGRESS NOTE Date/Time Patient Seen: July 08, 2024 SUBJECTIVE: This is a 69-year-old male with a past medical history of peripheral artery disease with osteomyelitis S/p left 4th and 5th toe and right 3rd toe amputation, anemia, chronic pain, diabetes mellitus type 2, hypertension, hyperlipidemia, chronic kidney disease, recent COVID-19 infection. He presented to the emergency room via EMS from [facility] with complaints of low platelets, poor appetite and generalized weakness. Influenza and COVID swabs were negative CT of the abdomen showed mild enterocolitis with mild to moderate small and large bowel liquid contents. He was admitted to the ICU for further medical management of septic shock He continues to require vasopressors to maintain blood pressure. In the emergency room he was noted to have elevated BUN/creatinine and hyperkalemia. Renal function continued to worsen He has been started on renal replacement therapy Tolerated dialysis without difficulty. S/P Brachiocephalic-basilic AV fistula. Case management coordinating outpatient dialysis chair [facility] Zelda [facility] He was seen in the medical floor, in no acute distress Family at the bedside Condition remains critical and guarded REVIEW OF SYSTEMS: GENERAL: Negative for any nausea, vomiting, fevers, chills, or weight loss. NEUROLOGIC: Negative for any blurry vision, blind spots, double vision, facial asymmetry, dysphagia, dysarthria, hemiparesis, hemisensory deficits, vertigo, ataxia. HEENT: Negative for any head trauma, neck trauma, neck stiffness, photophobia, phonophobia, sinusitis, rhinitis. CARDIAC: Negative for any chest pain, dyspnea on exertion, paroxysmal nocturnal dyspnea, peripheral edema. PULMONARY: Negative for any shortness of breath, wheezing, COPD, or TB exposure. GASTROINTESTINAL: Negative for any abdominal pain, nausea, vomiting, bright red blood per rectum, melena. GENITOURINARY: Negative for any dysuria, hematuria, incontinence. INTEGUMENTARY: Negative for any rashes, cuts, insect bites. RHEUMATOLOGIC: Negative for any joint pains, photosensitive rashes, history of vasculitis or kidney problems. HEMATOLOGIC: Negative for any abnormal bruising, frequent infections or bleeding. PHYSICAL EXAM: GENERAL: Lethargic. No acute distress. Well-nourished. EYES: EOMI. Anicteric. HENT: Moist mucous membranes. No scleral icterus. No cervical lymphadenopathy. LUNGS: Clear to auscultation bilaterally. No accessory muscle use. CARDIOVASCULAR: Regular rate and rhythm. No murmur. No JVD. ABDOMEN: Soft, non-tender and non-distended. No palpable masses. EXTREMITIES: No edema. Non-tender. SKIN: No rashes or lesions. Warm. NEUROLOGIC: No focal neurological deficits. CN II-XII grossly intact, but not individually tested. PSYCHIATRIC: Cooperative. Appropriate mood and affect. LABORATORY: [ ] Hematology Labs: Test 07/08/24 05:45 07/07/24 06:39 Range/Units White Blood Count 12.9 H 4.8-10.8 K/uL Red Blood Count 3.68 L 4.50-6.20 MIL/uL Hemoglobin 11.2 L 14.0-18.0 g/dL Hematocrit 32.5 L 42-54 % Mean Corpuscular Volume 88.3 79-99 fL Mean Corpuscular Hemoglobin 30.4 27.0-33.0 pg Mean Corpuscular Hemoglobin Concent 34.5 32.0-36.0 g/dL Red Cell Distribution Width 18.0 H 11.0-15.5 % Platelet Count 153 130-400 K/uL Mean Platelet Volume 11.9 H 7.5-10.5 fL Nucleated Red Blood Cells 0.0 0.0-0.19 % Red Blood Cell Morphology See comments Immature Granulocyte % (Auto) 0.7 0-1 % Neutrophils (%) (Auto) 84.2 H 40.0-77.0 % Lymphocytes (%) (Auto) 7.1 L 21.0-51.0 % Monocytes (%) (Auto) 7.7 3.0-13.0 % Eosinophils (%) (Auto) 0.2 0.0-8.0 % Basophils (%) (Auto) 0.1 0.0-5.0 % Neutrophils # (Auto) 9.9 H 1.8-7.7 K/uL Lymphocytes # (Auto) 0.8 L 1.0-4.8 K/uL Monocytes # (Auto) 0.9 0.1-1.0 K/uL Eosinophils # (Auto) 0.02 0.00-0.70 K/uL Basophils # (Auto) 0.01 0.00-0.20 K/uL Absolute Immature Granulocyte (auto 0.08 0-1 K/uL Chemistry Labs: Test 07/08/24 12:19 07/08/24 05:45 07/07/24 06:39 Range/Units Whole Blood Glucose 160 H 70-110 MG/DL Sodium Level 136 136-145 mmol/L Potassium Level 4.0 3.5-5.1 mmol/L Chloride Level 98 L 101-111 mmol/L Carbon Dioxide Level 26 21-32 mmol/L Blood Urea Nitrogen 52 #H 7-18 mg/dL Creatinine 3.1 H 0.5-1.3 mg/dL Glomerular Filtration Rate Calc 21 >90 mL/min Random Glucose 212 H 70-105 mg/dL Total Calcium 7.8 L 8.5-10.1 mg/dL Magnesium Level 2.00 1.80-2.40 mg/dL Total Bilirubin 1.1 H 0.2-1.0 mg/dL Aspartate Amino Transf (AST/SGOT) 24 10-37 U/L Alanine Aminotransferase (ALT/SGPT) 22 12-78 U/L Alkaline Phosphatase 229 H 50-136 U/L Total Protein 5.4 L 6.0-8.3 g/dL Albumin 2.2 L 3.5-5.0 g/dL Phosphorus Level 4.0 2.5-4.9 mg/dL Coagulation Labs: Test 07/07/24 06:39 Range/Units Prothrombin Time 15.7 H 9.6-11.6 SEC Prothromb Time International Ratio 1.55 H 0.85-1.15 Activated Partial Thromboplast Time 38.6 H 26.3-35.5 SEC DIAGNOSTICS / RADIOLOGY: REASON: monitor pneumothorax for progression ORDERING PHYSICIAN: AL CARDONA MD PROCEDURE: CXR1VW - CHEST 1VW CHEST 1VW HISTORY: Pneumothorax COMPARISON: None FINDINGS: A frontal projection of the chest was obtained. Bilateral lower lung pulmonary infiltrates are seen. The heart is borderline enlarged. Degenerative changes are seen. No evidence of aortic calcification is seen. IMPRESSION: 1. Bilateral lower lung pulmonary infiltrates. DICTATED BY: PEDRO VERDUGO MD DATE: 07/02/24 1614 REASON: FVO ORDERING PHYSICIAN: LALI BOLDEN NP PROCEDURE: CXR1VW - CHEST 1VW CHEST 1VW HISTORY: [facility] COMPARISON: 06/30/2024 FINDINGS: A frontal projection of the chest was obtained. Mild bilateral pulmonary infiltrates are seen may be related to mild pulmonary vascular congestion with possible superimposed pneumonitis. Right venous catheter is seen with distal tip in the plane of the atriocaval junction. PICC line is also seen entering from the right with distal tip in plane of the superior vena cava. There is 20% right pneumothorax. The heart is borderline enlarged. All the lines and tubes are again seen in place. No evidence of aortic calcification is seen. IMPRESSION: 1. Mild bilateral pulmonary infiltrates are seen may be related to mild pulmonary vascular congestion with possible superimposed pneumonitis. 20% right pneumothorax. Report was given to the critical care team. DICTATED BY: PEDRO VERDUGO MD DATE: 07/02/2439 REASON: ORDERING PHYSICIAN: BRENDA MAI MD PROCEDURE: CATH PROC - CAP SIZER PROCEDURE REQUEST CAP SIZER PROCEDURE REQUEST INDICATION: ESRD, hemodialysis. 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 Sterile Prep: All elements of maximal sterile barrier technique, including hand hygiene and cutaneous antisepsis were used. A time-out was performed prior to the procedure. Anesthesia type: 14 mL of 1% lidocaine subcutaneous. Patient also received 1 mg Versed intravenous, 25 mcg fentanyl intravenous. Vital signs monitored and observed by catheter lab nursing staff. Contrast: None Estimated blood loss: Less than 5 cc. TECHNIQUE: Imaging guidance: Ultrasound demonstrates right internal jugular vein to be patent. Access: Right internal jugular vein Venous access device: 28 cm Duramax Bioflow catheter Fluoroscopy time: 0.2 minutes Intraprocedural or immediate post-procedural complications: None FINDINGS: Sonographic evaluation of the access vein: The length of the target vessel was evaluated for internal echoes, stenosis and patency. The access vessel is patent. Catheter tip location: Right atrium Additional observations: Both ports were flushed and heparin packed. Both ports were clamped and capped. Sterile dressing applied. No observed complications. IMPRESSION: Insertion of right internal jugular vein tunneled hemodialysis catheter. The catheter may be used immediately. DICTATED BY: APOLONIA JACKSON DO DATE: 07/01/2434 REASON: VEIN MAPPING ORDERING PHYSICIAN: RUSTY TIERNEY MD PROCEDURE: VEIN M UNI - US VEIN MAPPING UNI/LTD US VEIN MAPPING UNI/LTD HISTORY: Preop COMPARISON: None TECHNIQUE: Ultrasound upper extremity venous mapping study was performed for hemodialysis access. FINDINGS: Left cephalic vein High upper arm: 12 x 2 millimeter Mid upper arm: 9 x 2 millimeter Low upper arm: 4 x 2 millimeter High forearm: 7 x 1 millimeter Mid forearm: 8 x 2 millimeter Low forearm: 2 x 2 millimeter Left basilic vein Upper arm: 15 x 3 millimeter Lower arm: 14 x 2 millimeter Antecubital fossa: 7 x 2 millimeter IMPRESSION: 1. Ultrasound upper extremity venous mapping study as described above. DICTATED BY: PEDRO VERDUGO MD DATE: 07/01/24 193 REASON: new start dialysis pt ORDERING PHYSICIAN: BRENDA MAI MD PROCEDURE: CXR1VW - CHEST 1VW CHEST 1VW HISTORY: Dialysis COMPARISON: 06/29/2024 FINDINGS: A frontal projection of the chest was obtained. Mild bilateral pulmonary infiltrates are seen may be related to mild pulmonary vascular congestion with possible superimposed pneumonitis. The heart is borderline enlarged. All the lines and tubes are again seen in place. No evidence of aortic calcification is seen. IMPRESSION: 1. Mild bilateral pulmonary infiltrates are seen may be related to mild pulmonary vascular congestion with possible superimposed pneumonitis. DICTATED BY: PEDRO VERDUGO MD DATE: 06/30/24 162 REASON: hypoxia resp failure ORDERING PHYSICIAN: SMITA BRICE PROCEDURE: CXR1VW - CHEST 1VW CHEST 1VW HISTORY: Hypoxia COMPARISON: 06/09/2024 FINDINGS: A frontal projection of the chest was obtained. There are bilateral pulmonary infiltrates suggestive of pulmonary vascular congestion with possible superimposed pneumonitis. The heart is borderline enlarged. Degenerative changes are seen. No evidence of aortic calcification is seen. IMPRESSION: 1. Bilateral pulmonary infiltrates are seen suggestive of pulmonary vascular congestion with possible superimposed pneumonitis. DICTATED BY: PEDRO VERDUGO MD DATE: 06/29/24 1245 REASON: SOB ORDERING PHYSICIAN: LALI BOLDEN NP PROCEDURE: CXR1VW - CHEST 1VW PORTABLE CHEST RADIOGRAPH INDICATION: SOB COMPARISON: 06/18/2024 FINDINGS: counsellors leads overlie the field of view. Tip of right PICC within the SVC. Heart remains enlarged. The pulmonary vascularity and mauricio appear normal. No abnormal pulmonary parenchymal opacity or consolidation identified. No significant pleural effusion noted. No pneumothorax detected. IMPRESSION: Stable cardiac megaly without radiographic evidence for any acute cardiopulmonary process. DICTATED BY: ROLANDO HAN MD DATE: 06/19/24 1011 REASON: SOB ORDERING PHYSICIAN: LALI BOLDEN NP PROCEDURE: CXR1VW - CHEST 1VW PORTABLE CHEST RADIOGRAPH INDICATION: SOB COMPARISON: 06/16/2024 FINDINGS: counsellors leads overlie the field of view. Patient positioning is not optimal, but the radiologic examination is still believed to be of reasonable diagnostic quality. Stable right PICC. Stable heart size. Mild calcific plaque is present along the aortic arch rosales. The pulmonary vascularity and mauricio appear normal. Suspect very small layering right and very small left pleural effusions with subjacent passive linear opacities. No evidence for consolidation. No pneumothorax detected. IMPRESSION: Suspect very small layering right and very small left pleural effusions with subjacent passive atelectasis. DICTATED BY: ROLANDO HAN MD DATE: 06/19/24 1021 REASON: sob ORDERING PHYSICIAN: LILIAM LACY BASIC ACOUSTIC ANALYST PROCEDURE: ECHO CMP - ECHO 2-D COMPLETE APPROVED REPORT EXAM: Two-dimensional and M-mode echocardiogram with Doppler and color Doppler. INDICATION ICD: R06.02 Shortness of breath 2D Dimensions RVDd 5.0 cm LVEF(%) 68.3 (>50%) LVED Vol(simp.) 128.0 mL IVSd 1.4 (0.7-1.1cm) FS(%) 38 % LVES Vol(simp.) 51.0 mL LVDd 4.2 (3.8-5.6cm) LA (2D) 4.0 (1.6-4.0cm) LVEF(%, simp.) 60 % PWd 1.5 (0.7-1.1cm) Ao Root(2D) 4.0 (2.0-3.7cm) LA ESV INDEX (BP) 37.99 mL/m2 LVDs 2.6 (2.5-4.0cm) LVOT diam 2.3 (1.8-2.4cm) IVC diam 2.1 cm Deformation Strain Apical 4 -19.0 % Apical 2 -15.0 % Apical 3 -16.0 % Global Strain -17.0 % M-Mode Dimensions EPSS 1.1 cm LA (MM) 4.0 (1.6-4.0cm) Ao Root(MM) 3.0 (2.0-3.7cm) Aortic Valve AoV Vmax 2.5 m/s Ao Peak GR 24.7 mmHg LVOT Vmax 1.5 m/s AoV VTI 0.4 m Ao Mean GR 15.1 mmHg LVOT VTI 0.29 m DEBORA (VMAX) 2.9 cm2 DEBORA (VTI) 2.9 cm2 Mitral Valve MV E Vmax 144.9 cm/s DECEL Time 175 ms MV A Vmax 128.2 cm/s P 1/2 T 58 ms E/A ratio 1.1 MVA (PHT) 3.8 cm2 TDI E/E' Medial 16.1 E/E' Lateral 14.5 Medial E' Peak V 9.00 cm/s Lateral E' Peak V 10.00 cm/s Pulmonary Valve PV Vmax 1.3 m/s Tricuspid Valve TR Vmax 2.7 m/s RAP (EST) 3 mmHg RVSP 32.3 mmHg TR Peak GR 29.3 mmHg Left Ventricle The left ventricle is normal size. GS -17%. Hyoerdynamic LV with normal LV segmental wall motion. Moderate concentric left ventricular hypertrophy. LVEF is 60-65%. Grade 2 diastolic dysfunction. Right Ventricle The right ventricle is moderately dilated, measuring 5.0 cm. The right ventricular systolic function is normal. Atria The left atrium is mildly dilated with an LA ESV index of 38 mL/m�. The right atrium is moderately dilated. Aortic Valve Aortic valve is trileaflet, with mild sclerosis of the left coronary cusp. The aortic valve is seen to open near normally. No aortic regurgitation is present. There is no aortic valvular stenosis. Mitral Valve Mitral valve leaflets open well. Posterior annular and leaflet calcification noted. There is no mitral valve regurgitation noted. There is no mitral valve s tenosis. Tricuspid Valve The tricuspid valve is normal in structure. There is trace of tricuspid valve regurgitation noted. Pulmonic Valve The pulmonary valve is normal in structure. There is no pulmonic valvular regurgitation. Great Vessels The aortic root is normal in size. The IVC is normal in size and collapses >50% with inspiration. Pericardium There is no pericardial effusion. Other Information Quality : Adequate Conclusion The left ventricle is normal size. Moderate concentric left ventricular hypertrophy. GS -17%. Hyoerdynamic LV with normal LV segmental wall motion. LVEF is 60-65%. Grade 2 diastolic dysfunction. Aortic valve is trileaflet, with mild sclerosis of the left coronary cusp. The aortic valve is seen to open near normally. There is no aortic valvular stenosis. Mitral valve leaflets open well. Posterior annular and leaflet calcification noted. There is no mitral valve stenosis. There is no mitral valve regurgitation noted. There is no pericardial effusion. DICTATED BY: KATJA LANDRY MD DATE: 06/17/24 0847 REASON: RENAL FAILURE ORDERING PHYSICIAN: EUSEBIO POWELL PROCEDURE: ABD PEL WO - CT ABDOMEN/PELVIS W/O CONTRAST CT ABDOMEN WITHOUT CONTRAST. CT PELVIS WITHOUT CONTRAST. INDICATION: Renal failure TECHNIQUE: Routine transaxial imaging using 5 mm slice thickness through the abdomen and pelvis without the administration of IV contrast. Thin slice reconstructions are also provided. Coronal and sagittal reformatted images acquired for interpretation. CT was performed with one or more of the following dose reduction techniques: Automated exposure control, adjustment of the mA and/or kV according to patient size, or use of iterative reconstruction technique. COMPARISON: None FINDINGS: Diagnostic sensitivity of this examination is limited by patient motion artifact. ON NONCONTRAST IMAGING: ABDOMEN: Heart size is normal. Mitral annular calcific plaque. Visible lung bases are clear. No abnormal renal calcifications, hydronephrosis, perinephric inflammation, or proximal hydroureter detected. The liver is normal in size and smooth in contour without biliary duct dilation. The spleen is normal in size and attenuation. Several miniscule calcifications within the gallbladder lumen. The pancreas appears normal without pancreatic duct dilation. The adrenal glands appear normal. No significant abdominal, retrocrural or retroperitoneal adenopathy noted. No evidence for intra-abdominal free air or organized fluid collection. Mild calcific plaque is noted along the abdominal aortic and iliac vessel rosales without aneurysmal dilation. PELVIS: Gallagher catheter within the nearly empty urinary bladder. Urinary bladder wall thickening is more than expected for empty urinary bladder. No evidence for free air or organized pelvic fluid collection. No significant pelvic adenopathy detected. Mild to moderate small and large bowel liquid contents. A few diverticula along the distal colon. Terminal ileum appears unremarkable. The appendix appears normal. Mild thoracolumbar spondylosis. IMPRESSION: 1. Probable mild enterocolitis with mild to moderate small and large bowel liquid contents. 2. Cholelithiasis. 3. Urinary bladder wall thickening, more than expected for empty urinary bladder. Correlation with urine studies is recommended. 4. Mild distal colonic diverticulosis. 5. Arteriosclerotic disease as described. DICTATED BY: ROLANDO HAN MD DATE: 06/17/24 1000 REASON: NETO ORDERING PHYSICIAN: BRENDA MAI MD PROCEDURE: RENAL - US RENAL SONOGRAM ULTRASOUND RENAL COMPLETE INDICATION: NETO TECHNIQUE: Routine ultrasound of the kidneys and urinary bladder with grayscale and color Doppler imaging was performed in real-time, and subsequently made available for review. COMPARISON: No prior studies available for comparison. FINDINGS: The right kidney measures 9.7 x 4.9 x 4.6 cm. No abnormal mass demonstrated. No evidence for hydronephrosis or shadowing stone. The left kidney measures 10.1 x 5.5 x 4.8 cm. No abnormal mass demonstrated. No evidence for hydronephrosis or shadowing stone. Urinary bladder wall thickness measures 4.0 mm, but exaggerated due to incomplete distention. No free fluid demonstrated. IMPRESSION: Normal sonographic appearance of the kidneys and urinary bladder. DICTATED BY: ROLANDO HAN MD DATE: 06/17/24 0949 REASON: cp ORDERING PHYSICIAN: MARY CARR MD PROCEDURE: CXR1VW - CHEST 1VW PORTABLE CHEST RADIOGRAPH INDICATION: cp COMPARISON: 05/06/2024 FINDINGS: counsellors leads overlie the field of view. Tip of right PICC within the SVC. Heart size is normal. Mild calcific plaque is present along the aortic arch rosales. The pulmonary vascularity and mauricio appear normal. No abnormal pulmonary parenchymal opacity or consolidation identified. No significant pleural effusion noted. No pneumothorax detected. IMPRESSION: No radiographic evidence for any acute cardiopulmonary process. DICTATED BY: ROLANDO HAN MD DATE: 06/16/24 2154 ASSESSMENT: Acute on chronic renal failure Severe Lactic acidosis Metabolic acidosis Hyperkalemia Septic shock, requiring vasopressor Acute encephalopathy Thrombocytopenia NSTEMI, rule-out demand ischemia vs true cardiac etiology Failure to thrive History of osteomyelitis with recent amputation Elevated troponin Elevated BNP Diabetes mellitus type 2 Hypertension Hyperlipidemia Peripheral artery disease PLAN: Labs, diagnostic, radiologic exams reviewed and interpreted by myself and supervising physician. We have reviewed external records in detail Continue dialysis schedule Saturday Patient was encouraged to participate in physical therapy. Patient must be able to transfer chairs with no assist before discharge. If unable to do so then other accommodations must be made prior to discharge. Outpatient dialysis chair [facility] Zelda [facility] Order CBC, CMP, and electrolytes in am Follow up culture results BiPAP as necessary, for respiratory distress Monitor blood pressure adjust medication doses as needed Avoid hypotensive episodes May use Dilaudid 0.5 mg IV every 6 hours as needed for severe pain Monitor blood sugars Strict intake, output, and daily weight should be monitored Please renally adjust medications Avoid nephrotoxic and nonsteroidal drugs Avoid contrast if possible Will continue to monitor renal function, anemia, electrolytes Treatment plan discussed with patient Questions were answered We have discussed with the other team physicians in detail about the care plan We will continue to monitor the patient closely ATTESTATION BY PHYSICIAN I have seen and examined the patient. I reviewed the documentation, medical decision making, and treatment plan as noted by the mid-level provider above. I agree with the findings and plan of care. BRENDA MAI MD, [facility] July 08, 2024 13:09
--- NOTE | 2024-07-08 13:40 | PN ---
INFECTIOUS DISEASE PROGRESS NOTE Date of Service: July 08, 2024 SUBJECTIVE: This is a 69 year old male patient who was seen and examined at bedside in room 224. Patient is status post brachiocephalic-basilic AV fistula day # 1. Patient is resting comfortable. No fever reported, temperature is 97.5� and the WBC of 12.9. Per report patient has been discharged to SNF. From Infectious Disease standpoint no antibiotics needed on discharge. PHYSICAL EXAM EYES: Anicteric. Pupils equal and reactive. HENT: No oral thrush seen, moist Oral mucosa. NECK: Supple, no JVD or thyromegaly. LUNGS: Good air entry. No rales, no rhonchi. CARDIOVASCULAR: S1, S2 regular. No murmur heard. ABDOMEN: Soft, non tender, bowel sounds present, no organomegaly. CENTRAL NERVOUS SYSTEM: Awake, alert, oriented x 2. SKIN: No rashes, no swelling. LYMPHATICS: No peripheral lymphadenopathy. MUSCULOSKELETAL: No joint swelling, erythema or tenderness. EXTREMITIES: No cyanosis or clubbing. 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 BACK: No deformity, no pressure ulcer. GENITOURINARY: No dysuria or hematuria. Vital Sign (Last 12 Hours) 07/08/24 07/08/24 07/08/24 07/08/24 04:00 08:00 08:30 12:00 Temp 98.1 97.5 97.5 Pulse 65 73 64 Resp 18 18 16 B/P (MAP) 118/62 121/72 124/59 Pulse Ox 97 97 98 99 O2 Delivery Room Air Room Air* Room Air Room Air O2 Flow Rate 0 FiO2 21 Intake & Output (last 24hrs) 07/07/24 07/07/24 07/08/24 15:00 23:00 07:00 Intake Total 0 ml 240 ml Output Total 2250 ml 400 ml Balance 0 ml -2010 ml -400 ml LABS: Laboratory: Test 07/08/24 12:19 07/08/24 05:45 07/07/24 06:39 Range/Units Whole Blood Glucose 160 H 70-110 MG/DL White Blood Count 12.9 H 4.8-10.8 K/uL Red Blood Count 3.68 L 4.50-6.20 MIL/uL Hemoglobin 11.2 L 14.0-18.0 g/dL Hematocrit 32.5 L 42-54 % Mean Corpuscular Volume 88.3 79-99 fL Mean Corpuscular Hemoglobin 30.4 27.0-33.0 pg Mean Corpuscular Hemoglobin Concent 34.5 32.0-36.0 g/dL Red Cell Distribution Width 18.0 H 11.0-15.5 % Platelet Count 153 130-400 K/uL Mean Platelet Volume 11.9 H 7.5-10.5 fL Nucleated Red Blood Cells 0.0 0.0-0.19 % Red Blood Cell Morphology See comments Sodium Level 136 136-145 mmol/L Potassium Level 4.0 3.5-5.1 mmol/L Chloride Level 98 L 101-111 mmol/L Carbon Dioxide Level 26 21-32 mmol/L Blood Urea Nitrogen 52 #H 7-18 mg/dL Creatinine 3.1 H 0.5-1.3 mg/dL Glomerular Filtration Rate Calc 21 >90 mL/min Random Glucose 212 H 70-105 mg/dL Total Calcium 7.8 L 8.5-10.1 mg/dL Magnesium Level 2.00 1.80-2.40 mg/dL Total Bilirubin 1.1 H 0.2-1.0 mg/dL Aspartate Amino Transf (AST/SGOT) 24 10-37 U/L Alanine Aminotransferase (ALT/SGPT) 22 12-78 U/L Alkaline Phosphatase 229 H 50-136 U/L Total Protein 5.4 L 6.0-8.3 g/dL Albumin 2.2 L 3.5-5.0 g/dL Immature Granulocyte % (Auto) 0.7 0-1 % Neutrophils (%) (Auto) 84.2 H 40.0-77.0 % Lymphocytes (%) (Auto) 7.1 L 21.0-51.0 % Monocytes (%) (Auto) 7.7 3.0-13.0 % Eosinophils (%) (Auto) 0.2 0.0-8.0 % Basophils (%) (Auto) 0.1 0.0-5.0 % Neutrophils # (Auto) 9.9 H 1.8-7.7 K/uL Lymphocytes # (Auto) 0.8 L 1.0-4.8 K/uL Monocytes # (Auto) 0.9 0.1-1.0 K/uL Eosinophils # (Auto) 0.02 0.00-0.70 K/uL Basophils # (Auto) 0.01 0.00-0.20 K/uL Absolute Immature Granulocyte (auto 0.08 0-1 K/uL Prothrombin Time 15.7 H 9.6-11.6 SEC Prothromb Time International Ratio 1.55 H 0.85-1.15 Activated Partial Thromboplast Time 38.6 H 26.3-35.5 SEC Phosphorus Level 4.0 2.5-4.9 mg/dL ASSESSMENT: Fungemia. 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 Septic shock, resolving. Anemia requiring blood transfusion, status post EGD. Acute renal failure, new onset dialysis, s/p AV fistula placement on 07/07/2024. PLAN: From Infectious Disease standpoint no antibiotics needed on discharge. Continue wound care. Continue dialysis as recommended by [employer]. This case was reviewed and discussed with my supervising physician and the above assessment and plan was formulated and agreed upon. ATTESTATION BY PHYSICIAN I have seen and examined the patient. I reviewed the documentation, medical decision making, and treatment plan as noted by the mid-level provider above. I agree with the findings and plan of care. CECIL ROY MD, [facility] July 08, 2024 13:40
--- NOTE | 2024-07-08 13:48 | DS ---
Discharge Summary Hospital Course Summary: This is a 69-year-old male ,a poor historian coming from [facility] with past medical history of osteomyelitis S/P left 4 &5 th toe and right 3rd toe amputation, anemia, chronic pain,diabetes and hypertension who was brought by EMS to the ED for complaints of low platelet. Sister Kaylah Jaramillo was at bedside during my evaluation and was saying patient was positive with Covid 3 weeks ago prior to admission and was doing okay is already negative with Covid she said however he started not eating and when she visited him he is not talking much and appeared weak so she decided to send him here Patient BP has dropped to 79/22/ and was started on Levophed drip. Seen and examined patient in the ER arousable and coherent. Patient last platelet here in this facility on 05/07/2024 was 209 and now it went down to 32.No reported bleeding problem.Patient denies bleeding problem. As per sister patient had a right great toe amputation 10 years ago. In the ERLatest vital signs temperature 96.3�, heart rate 114, blood pressure 132/51 saturation 98% on room air. In the ER Labs: WBC 10, hemoglobin 9.7, hematocrit 30 platelet count 32. Potassium six, CO2 eight, BUN 113, creatinine 9.9, GFR five, troponin 139. PH 6.7, CO2 25, PO2 56, bicarb 3.4 O2 saturation 80 base excess -30 lactic acid seven. Influenza type a and B negative, SARs COVID negative rapid strep negative. Chest x-ray result revealed no radiographic evidence for any acute cardiopulmonary process. CT abdomen and pelvis renal ultrasound are still pending at this time. While in the ER patient received 1 L NS bolus, Zosyn IV, vancomycin 1 g IV, albuterol 10 mg inhalation, Kayexalate 15 g p.o., patient continued on Levophed drip. Patient admitted to ICU for further medical management . 06/18 patient has been seen and examined at bedside, case discussed with the RN, patient remains confused, still on pressor support with Levophed and Andrew- Synephrine, patient also on sodium bicarbonate drip. No family members at bedside during my visit. Blood pressure 112/44, heart rate of 91, saturating 93%. CBC with WBC of 16.4, hemoglobin 8.2, hematocrit 23.7, platelet count of 27. Sodium 145, potassium 3.7, BUN of 102, creatinine 10.2, sodium bicarb of 12. ABG with pH of 7.33, pCO2 31, PO2 64, bicarb of 16.1. Septic workup reviewed, blood cultures no growth after 24 hours. Patient getting broad- spectrum IV antibiotics during my visit. CT of the abdomen pelvis probable mild enterocolitis with mild to moderate small and large bowel liquid content, cholelithiasis, urinary wall thickening, more than expected for empty urinary bladder. Mild distal colonic diverticulosis. 06/19 patient is seen and examined at bedside, case discussed with the RN, no acute events overnight, patient is still confused, however less compared to time of admission. Following very simple commands. He is currently off vasopressors. Replace, output since this morning 500 cc. Blood pressure 111/78, afebrile, saturating 96-98% 2 L nasal cannula. WBC trending down at 11.2, hemoglobin 7.6, hematocrit 20.9, platelet count of 14. BUN 108, creatinine 10.2. ABG shows a pH 7.41, pCO2 37, PO2 81.5, bicarb 23.1. Blood culture showing Alicia tropicalis. Patient has been started on micafungin. Continue antibiotics. Continue critical care input and recommendation, continue Nephrology input and recommendation in terms of renal replacement therapy, continue daily weight, monitor intake and output. Follow anemia workup, stool occult blood, serial CBC transfuse 1 unit of PRBC hemoglobin less than seven, we will request Hematology consultation as well. 06/20 patient seen at bedside, no acute events overnight. He is not requiring pressors he is afebrile, hemodynamically stable saturating well on 2 L nasal cannula. Hemoglobin was 6.1 and platelets low at night, we will be transfused w ith packed red blood cells and platelets per critical Care, we will follow up post transfusion. Potassium decreased from 3.4 down to 3.2, creatinine stable at 10.2, we will follow up with Nephrology for recommendations. Urine output is improving, he has been started on Lasix, we will follow up. Patient continues on micafungin. Pt reticulocyte count low at 0.18 suggesting decreased production of RBC, FOBT positive as well concerning for GI Bleed. Will consult hematology and GI and follow up 06/21 patient seen at bedside, no acute events overnight. He has been afebrile, hemodynamically stable saturating well on 2 L nasal cannula. He has been NPO however he has no history of volume overload, and his kidney function is decreased, we will perfuse his kidneys with some IV fluids and allow clear liquid diet. Creatinine stable at 9.9, same as yesterday, potassium decreased at 3.0, nephrology to manage potassium levels until renal function improves. Hemoglobin improved from 8.0 up to 8.7, remainder of his labs are relatively unremarkable. 06/22 Pt seen at bedside, no acute events overnight. He has been downgraded from ICU. He has been afebrile, hemodynamically stable, saturating well on room air. Hgb stable at 8.6, similar to yesterday, platelets decreased from 102 down to 82, potassium low at 2.7, will be repleted according to protocol, creatinine improved from 9.9 down to 8.5, sodium improved from 150 down to 146, remainder of his labs are relatively unremarkable. Urine output adequate, approximately 2.3L output in the last 24 hours. On physical exam, no evidence of volume overflow, will continue with IV fluids to perfuse his kidneys. Left foot growing mullins-resistant organism, ID to adjust antibiotics 06/23 patient seen at bedside, no acute events overnight. He is pending EGD with GI today, we will follow up postprocedure. He has been afebrile, hemodynamically stable, mildly hypertensive with systolics in the 150s, saturating well on 3 L nasal cannula. Hemoglobin improved from 8.6 up to 9.0, platelets decreased from 82 down to 78, creatinine continues to improve from 8.5 down to 7.2 with adequate urine output. Potassium low at 3.1, we will be repleted according to potassium protocol. Patient weak and feeble, we will likely need transitioned to senior living facility, case management to assist with placement. He will continue daily physical therapy. 06/24 patient seen at bedside, no acute events overnight. EGD was done yesterday no evidence of bleed noted. Patient refusing colonoscopy. Hgb is uptrending from 9.0 up to 9.3 suggesting resolution of GI bleed, platelets improved from 78 up to 87, creatinine improved from 7.2 down to 6.4, potassium low at 3.4, will be repleted according to protocol. Patient will need placement for IV antibiotics 06/25 patient seen at bedside, no acute events overnight. Continues to refuse colonoscopy yesterday he went into AFib with RVR was started on IV amiodarone. He was rate controlled today, likely we will be transitioned to p.o. amiodarone. Now pending placement to continue IV antibiotic and antifungal therapy. We will follow up with case management and Cardiology. Creatinine improved from 6.4 down to 5.9, BUN still elevated at 112. Potassium low at 2.9 will be repleted according to protocol and will give an extra 80meq supplementation. 06/26 patient seen at bedside, no acute events overnight. He has been afebrile, hemodynamically stable saturating well on room air. WBC increased from 11.3 up to 13.1, hemoglobin stable at 9.7, same as yesterday, creatinine stable at 5.9, same as yesterday, BUN increased from 112 up to 117, remainder of his labs are relatively unremarkable. Proximally 1.1 L urine output in the last 24 hours. He is pending placement 06/27 Pt seen at bedside, no acute events overnight. He remains stable, vitals unremarkable. Pending placement 06/28 patient seen at bedside, no acute events overnight. His urine output has been decreasing, his BUN is up trending and his creatinine stable at 5.9. Discuss with Nephrology and we will hold the IV fluids and start a short course of Lasix to see his response. If he does not improve he may end up needing renal replacement therapy. Remainder of his vitals and labs are unremarkable. 06/29 seen at bedside, no acute events overnight. He was started on Lasix yesterday, diuresed proximally 1.4 L and is -992 mL over the last 24 hours. He still appears fluid overloaded. BUN continues to uptrend, creatinine stable at 6.0, similar to yesterday. Continue to monitor renal function, if it continues to deteriorate or urine output decreases, he may need renal replacement therapy. 06/30 patient seen at bedside, no acute events overnight. Renal function continues to deteriorate, nephrology spoke with the patient about worsening renal function and the patient has agreed to transition to dialysis, will follow up with nephrology. 07/01 patient seen at bedside, no acute events overnight. He was in agreement to begin dialysis he will be taken for PermCath placement today and start his 1st session, venous mapping we will be done and CV surgery has been consulted for AV fistula occlusion. Patient's potassium low at 3.0, we will hold off on rep letion due to renal dysfunction and defer to Nephrology for management of the electrolytes. Creatinine stable at 6.2, same as yesterday. WBC increased from 10.2 up to 11.7, hemoglobin decreased from 10.8 down to 9.6, remainder of his labs are relatively unremarkable. 5 patient seen at bedside, his dialysis catheter was placed yesterday. This morning on chest x-ray there appears to be a 20% pneumothorax, pulmonology has been updated with these findings, we will order a repeat chest x-ray at 1:00 p.m. and follow up. If there is progression of the pneumothorax he may need a chest tube. Patient has had venogram done, he is pending AV fistula creation with CV surgery. Once the CV surgery has been completed and pneumothorax resolves, patient will be good candidate to transitioned to senior living. At bedside he is in no acute distress, has no complaints although he does seem te arful about having to be on dialysis and he is currently undergoing a dialysis session. 5/ patient seen at bedside, no acute events overnight he continues with dialysis, tolerating well. Nephrology and CV surgery are coordinating the AV fistula procedure, we will follow up with their recommendations. He was hemodynamically stable, labs are appropriately arranged for ESRD, potassium low at 3.0 we will defer to Nephrology for repletion. Patient we will need placement once AV fistula has been completed. 5/3 patient seen at bedside, no acute events overnight he continues with dialysis, tolerating well. Nephrology and CV surgery are coordinating the AV fistula procedure, we will follow up with their recommendations. He IS hemodynamically stable, labs are appropriately arranged for ESRD, potassium improved to 3.4 we will defer to Nephrology for repletion. Patient we will need placement once AV fistula has been completed. 5/4 patient seen at bedside, no acute events overnight he continues with dialysis, tolerating well. Nephrology and CV surgery are coordinating the AV fistula procedure, we will follow up with their recommendations. He IS hemodynamically stable, labs are appropriately arranged for ESRD, potassium low at 3.1 we will defer to Nephrology for repletion. Patient will need placement once AV fistula has been completed. 07/06 patient is seen and examined at bedside, case discussed with the RN, no acute events overnight, patient already had vein mapping, he is currently on hemodialysis per Nephrology recommendation, pending AV fistula, discussed with cardiovascular today. Patient will need placement once AV fistula has been completed. 07/07 power chart reviewed, case discussed with the RN, no acute events overnight, patient remains hemodynamically stable, evaluated by vascular surgeon, patient is scheduled for AV fistula/graft to the left upper extremity in the OR today. 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 She is to return to hospital if condition changes. No need for antibiotics or antipsychotic medication per my discussion with ID. Patient already completed treatment per Home Medications: Reported Medications Acetaminophen (Acetaminophen) 325 Mg Tablet, 2 TAB PO Q6HPRN PRN for pain or fever for 24 Days, #100 TAB 0 Refills 06/17/24 Hydralazine Hcl (APRESOLINE) 10 Mg Tablet, 10 MG PO Q6HPRN PRN for INCREASED BLOOD PRESSURE, TAB 06/17/24 Cefepime HCl/Dextrose, Iso-Osm (Cefepime 1 gm Injection) 1 Gram/50 Ml Froz.piggy, 1 GM IV BID, PIGGYBACK 06/17/24 Ascorbic Acid (Ascorbic Acid) 500 Mg Tablet, 500 MG PO DAILY, TAB 06/17/24 Zinc Sulfate (Zinc) 50 Mg Zinc (220 Mg) Tablet, 1 TAB PO DAILY for 30 Days, #30 TAB 0 Refills 06/17/24 Losartan Potassium (Losartan Potassium) 50 Mg Tablet, 1 TAB PO BID for 30 Days, #30 TAB 0 Refills 06/17/24 Protein Supplement (Promod) 946 Ml Liquid, 30 ML PO BID 06/17/24 Amlodipine Besylate (Amlodipine Besylate) 5 Mg Tablet, 5 MG PO BID, TAB 06/17/24 Ondansetron HCl (Ondansetron HCl) 4 Mg Tablet, 1 TAB PO Q6HPRN PRN for nausea/vomiting, #10 TAB 0 Refills 06/17/24 NPH, Human Insulin Isophane (Humulin N) 100 Unit/Ml Vial, 0 SQ ACHS, VIAL 06/17/24 Linezolid (Linezolid) 600 Mg Tablet, 1 TAB PO BID for 42 Days, TAB 0 Refills 06/17/24 Time spent arranging discharge: 31-60 minutes CHRIS MARKS MD July 08, 2024 13:48
--- NOTE | 2024-07-08 14:07 | NUR ---
SPOKE WITH PT AND REVIEWED PRIOR PT ASSESSMENTS AND SEE PT HASN'T WALKED IN A FEW DAYS. LAST STANDING NOTE WAS FROM 07/03/2024 NOTE STATED PT WAS ABLE TO STAND BUT NOT TAKE A STEP. CALLED CM IRIS TO UPDATE DUE TO PT NEEDING TO BE ABLE TO SIT ON A CHAIR FOR 4HRS FOR DIALYSIS. WILL SPEAK TO PT AND DISCUSS POC AND EVALUATE IF PT IS DEPRESSED FOR FURTHER INTERVENTIONS.
[2024-07-08] MEDS: acetaMINOPHEN 325 MG TAB PO PRN (15:22)
[2024-07-08 16:00] VITALS: BP 148/64; PULSE 83; RESP 16; TEMP 97.5
--- NOTE | 2024-07-08 17:14 | NUR ---
RIGHT UPPER ARM PICC LINE DISCONTINUED. ORDERED
[2024-07-15] MEDS ORDERED: APIX5TAB PO (15:47)
[2024-07-15] MEDS ORDERED: CEFE1VIA7 IJ (15:47)
[2024-07-15] MEDS ORDERED: TIGE50VI6 IV (15:47)
== END 2024-07-08 17:15 | DRG 853 ==
LOC: EDH 20:36 → EDHIP 06-17 00:37 → 2CH 06-17 01:10 → 3BH 06-21 17:00 → 2DH 06-24 14:48
PROVIDERS: ADMIT Internal Medicine; ATTEND Internal Medicine
PROC: 30233N1 Transfusion of Nonautologous Red Blood Cells into Peripheral Vein, Percutaneous Approach (ICD-10-PCS; 2024-06-19)
PROC: 30233R1 Transfusion of Nonautologous Platelets into Peripheral Vein, Percutaneous Approach (ICD-10-PCS; 2024-06-20)
PROC: 0DB68ZX Excision of Stomach, Via Natural or Artificial Opening Endoscopic, Diagnostic (ICD-10-PCS; 2024-06-23)
PROC: 0DB78ZX Excision of Stomach, Pylorus, Via Natural or Artificial Opening Endoscopic, Diagnostic (ICD-10-PCS; 2024-06-23)
PROC: 0JH63XZ Insertion of Tunneled Vascular Access Device into Chest Subcutaneous Tissue and Fascia, Percutaneous Approach (ICD-10-PCS; 2024-07-01)
PROC: 02H633Z Insertion of Infusion Device into Right Atrium, Percutaneous Approach (ICD-10-PCS; 2024-07-01)
PROC: B5181ZA Fluoroscopy of Superior Vena Cava using Low Osmolar Contrast, Guidance (ICD-10-PCS; 2024-07-01)
PROC: B548ZZA Ultrasonography of Superior Vena Cava, Guidance (ICD-10-PCS; 2024-07-01)
PROC: 5A1D70Z Performance of Urinary Filtration, Intermittent, Less than 6 Hours Per Day (ICD-10-PCS; 2024-07-01)
PROC: 5A1D70Z Performance of Urinary Filtration, Intermittent, Less than 6 Hours Per Day (ICD-10-PCS; 2024-07-02)
PROC: 5A1D70Z Performance of Urinary Filtration, Intermittent, Less than 6 Hours Per Day (ICD-10-PCS; 2024-07-04)
PROC: 5A1D70Z Performance of Urinary Filtration, Intermittent, Less than 6 Hours Per Day (ICD-10-PCS; 2024-07-07)
PROC: 03180ZD Bypass Left Brachial Artery to Upper Arm Vein, Open Approach (ICD-10-PCS; principal; 2024-07-07 08:14)
DX: A41.9 Sepsis, unspecified organism (principal); I21.A1 Myocardial infarction type 2; R65.21 Severe sepsis with septic shock; N18.6 End stage renal disease; I77.76 Dissection of artery of upper extremity; K29.71 Gastritis, unspecified, with bleeding; K57.31 Diverticulosis of large intestine without perforation or abscess with bleeding; E87.20 Acidosis, unspecified; N17.9 Acute kidney failure, unspecified; B49 Unspecified mycosis; D62 Acute posthemorrhagic anemia; N39.0 Urinary tract infection, site not specified; M86.8X7 Other osteomyelitis, ankle and foot; I13.2 Hypertensive heart and chronic kidney disease with heart failure and with stage 5 chronic kidney disease, or end stage renal disease; G93.40 Encephalopathy, unspecified; D64.9 Anemia, unspecified; E11.69 Type 2 diabetes mellitus with other specified complication; E78.00 Pure hypercholesterolemia, unspecified; E87.5 Hyperkalemia; E11.51 Type 2 diabetes mellitus with diabetic peripheral angiopathy without gangrene; K80.20 Calculus of gallbladder without cholecystitis without obstruction; E11.22 Type 2 diabetes mellitus with diabetic chronic kidney disease; E87.6 Hypokalemia; I25.2 Old myocardial infarction; D69.6 Thrombocytopenia, unspecified; I44.4 Left anterior fascicular block; I48.0 Paroxysmal atrial fibrillation; K21.9 Gastro-esophageal reflux disease without esophagitis; K52.9 Noninfective gastroenteritis and colitis, unspecified; Z53.20 Procedure and treatment not carried out because of patient's decision for unspecified reasons; R62.7 Adult failure to thrive; E66.9 Obesity, unspecified; I50.9 Heart failure, unspecified; Z83.3 Family history of diabetes mellitus; Z82.49 Family history of ischemic heart disease and other diseases of the circulatory system; Z89.411 Acquired absence of right great toe; Z86.16 Personal history of COVID-19; Z89.439 Acquired absence of unspecified foot; Z89.421 Acquired absence of other right toe(s); Z99.2 Dependence on renal dialysis
CPT/HCPCS: 36415; 71045; 76770; 80048; 83880; 84484; 85025; 85651; 86140; 87040; 87426; 87804; 87880; 94640; J0612; J1650; J2543; J3370; J3490; J7030; 36430; 36558; 36600; 43239; 74176; 77001; 80051; 80053; 80061; 80076; 80202; 81001; 82040; 82247; 82248; 82270; 82435; 82533; 82550; 82565; 82570; 82607; 82728; 82746; 82803; 82947; 82948; 83010; 83036; 83521; 83540; 83550; 83605; 83615; 83735; 83935; 84100; 84132; 84145; 84155; 84156; 84165; 84295; 84443; 84520; 85014; 85018; 85027; 85045; 85378; 85384; 85610; 85730; 86701; 86704; 86706; 86803; 86850; 86880; 86900; 86901; 86922; 86923; 87070; 87076; 87086; 87186; 87340; 87390; 88305; 88312; 90935; 92610; 93005; 93306; 93356; 93971; 96365; 96366; 96368; 99156; 99285; C1750; G0378; J0282; J0690; J0692; J1100; J1171; J1644; J1720; J1815; J1938; J1940; J2003; J2248; J2250; J2270; J2371; J2405; J2550; J2704; J2710; J3010; J3243; J3411; J3475; J3480; J7040; J7050; J7060; J7070; J7120; P9016; P9034; A4215; A4216; A4222; A4223; A4335; A4554; A4620; A4649; A4930; C1713; C1894; J0283; Q5106